=== PATIENT | female | born 1955 | race Caucasian/White ===

== ENCOUNTER → 2018-03-09 13:28 | Outpatient (CLI) | payer OTHER, SELFPAY ==
[2018-03-09 14:34] LABS: Bilirubin Urine UA NEGATIVE (NEGATIVE); Color Urine UA YELLOW; Glucose Urine UA NEGATIVE (Normal); Ketones Urine UA NEGATIVE (NEGATIVE); Leukocyte Esterase Urine UA 2+ (NEGATIVE); Nitrite Urine UA Negative (Negative); Occult Blood Urine UA NEGATIVE (Negative); Protein Urine UA NEGATIVE (Negative); Specific Gravity Urine UA 1.015 (1.000-1.035); Urobilinogen Urine UA 0.2 E.U./dL (0.2)
[2018-03-09 15:28] LABS: Appearance Urine UA Slightly Cloudy; RBC Urine None Seen (0-5/HPF); Squamous Epithelial Cell Urine 0-1 /HPF; WBC Urine 5-10/HPF (0-5/HPF)
[2018-03-09 15:29] LABS: Amorphous Sediment Urine 3+; Bacteria Urine Moderate (10-30); Culture Indicated Urine Specimen Cultured; Mucus Urine 1+ (Negative)
== END ==
PROVIDERS: PCP Family Medicine; Visit Provider Family Medicine
DX: R30.0 Dysuria (principal); R41.0 Disorientation, unspecified
CPT/HCPCS: 81003; 81015; 87077; 87086; 87186

== ENCOUNTER 2018-06-01 13:30 | Outpatient (RCR) | payer OTHER, SELFPAY ==
--- NOTE | 2018-01-06 13:25 | OT.OP.EVAL ---
Visit Care Team Role Provider Type Dariana Stratton DO Family Provider Physician Primary Care Provider Specialty: Family Practice Address: [address] [place] [address], [phone] Email: [email or web address] Nancy Floyd Attending Provider Non-Staff Specialty: Medical Address: [address] [place] [address], [id number] Email: Occupational Therapy Initial Evaluation OT Outpatient Adult Evaluation Start: 01/06/18 12:39 Freq: Status: Active Protocol: Document 01/05/18 14:45 AMS (Rec: 01/06/18 13:24 AMS [id number]) General Information Visit Start Time 13:40 Visit Stop Time 14:25 Total Visit Minutes 45 Visit Number 07/22; 07/27 Plan of Care Dates 01/05/18-03/30/18 Insurance Information g-codes required; 15 visits authorized Treatment Setting Outpatient Care Note Type Initial Evaluation Referring Physician Nancy Floyd PA-C Reason for Referral Secondary progressive MS - decreased fine motor control Identification Confirmed Yes Identification Confirmed By Sister Parent/Guardian Concerns Decrease burden of care; increase functional independence Medical History Patient is a 62 year-old female referred to outpatient OT secondary to progressive MS and subsequent decreasing fine motor control. Medical History form was completed by patient's sister, CLAUDIA, and placed in paper chart. Significant for the following: On medications to treat UTI. Knee surgery 1994. 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 Therapy Pain Assessment When Pain Assessed Function Pain Present Denied Pain ADLs Basic ADLs Severely Impaired Diet Level for Self-Feeding Will need to consult w/ SURGICAL GARMENT ASSEMBLY SUPERVISOR Self-Feeding Ability Pt and family report that she is able to feed herself w/ increased time. (+) use of standard utensils in the [facility]. (+) use of water bottle w/ lid w/ straw. Dependent w/ cutting/slicing foods. h/o dropping utensils when dining w/ family at restaurants. (-) use of AE and/or compensatory strategies. Skill Level Impaired Devices N/A Upper Body Dressing Ability Caretaskers assist. Patient denies actively assisting at this time. Unable to manage buttons or zippers. Skill Level Impaired Lower Body Dressing Ability Caretaskers assist. Patient denies actively assisting at this time. Skill Level Impaired Footware Type Athletic shoes w/ tie laces Footware Ability Dependent. Assist from caretakers. Skill Level Impaired Devices N/A Oral Care Ability Patient and family that she is able to brush her teeth w/ mod I. (+) use of electric toothbrush. Sister questions quality of regular toothbrushing; however, 'she had no cavities at her last dentist appointment'. Bathing Ability Dependent w/ UB and LB bathing . Caretaskers assist. Patient denies actively assisting at this time. Skill Level Impaired Devices N/A Grooming Ability Increased reliance on caretakers. Skill Level Impaired Tolieting Ability Increased reliance on caretakers. Skill Level Impaired IADLs Basic IADLs Severely Impaired Meaningful Abilities Per patient's sister, patient spends most of her day watching television. Patient does have a word search puzzle book and occasionally completes a puzzle in the book . Not actively reading and/or using laptop at this time. Laptop broken per family due to 'being dropped too many times'. Skill Level Impaired Cognition Cognitive Assessment Decreased processing speed of information. Vision Comments Impaired; double vision on medical reports indicated Muscle Testing Left Dry Dip Worker Dynamometer II 34.3 Right Dry Dip Worker Dynamometer II 37.0 Neurological Assessment - Adult Comments Impaired upper extremity coordination. Able to touch thumb to each finger pad bilaterally w/ visual feedback . Impairment noted w/ eyes closed particularly with thumb touching 4th and 5th digit pads bilaterally. Patient unaware of errors. Impaired symmetrical movement of arms opening and touching shoulders ; decreased fluidity and decreased joint limb sense apparent. L more difficult to position in space vs R. Decreased orientation to midline. Increased success w/ crossing of arms when TT used so that visual information was available for motor planning. Fine Motor Hand Preference Right Hand Use Consistency Within Tasks Right Function Impaired Goals Treatment Patient and caregiver education re: proximal stabilization to support motor planning of distal UEs w/ patient's completion of functional tasks. Patient's sister to convey this recommendation to [facility] staff/ caretakers to support carry- over. Short Term Goals 1. Based on family and patient verbal report, patient will be actively utilizing compensatory strategies to promote functional independence with self feeding on daily basis with minimal verbal cues from caretakers. 2. Patient will be able to execute alternating crosses x 10, while seated in wheelchair , with no more than 1 error, requiring direct model and minimal verbal cues from therapist. Mcc Goals 1. Patient will be able to execute home exercise program with support from family members and caretakers utilizing provided written and visual instructions on a regular basis. 2. Based on family and patient verbal report, patient will be actively engaging in 1 self -identified meaningful activity on a daily basis, other than watching television , for approximately 5 minutes, requiring minimal verbal and visual cues from caretakers. Assessment/Plan Patient Response Fair Rehabilitation Potential Fair Impairments Identified ADLs Attention Balance Cognition Coordination/Dexterity Functional Activities Motor Function Recreational Activities Meaningful Activities Motor Planning Eye-Hand Coordination Treatment Assessment Patient is a 62 year-old female referred to outpatient OT secondary to progressive MS and subsequent decreasing fine motor control. Patient is currently on medications to treat UTI. PMH: knee surgery in 1994. Patient resides full-time in [facility] located in [place], [place]. Patient relies primarily on caretakers and family for all basic and instrumental ADLS. Patient presents w/ limited participation in meaningful activities, other than watching television and completing word searches occasionally. Patient does not currently utilize AE to assist with functional activities that require bimanual or fine motor coordination of the hands/arms . Patient also does not currently use compensatory strategies to support distal UE motor function. Evaluation findings include decreased fine motor coordination, decreased orientation to midline, decreased functional independence, decreased speed of processing information, impaired vision, and decreased initiation w/ motor planning. Outpatient occupational therapy is recommended to reduce burden of care and to improve upon patient's functional independence, including active initiation of engagement in motor plans ( meaningful tasks). Home Exercise Program Patient and caregiver education re: proximal stabilization to support motor planning of distal UEs w/ patient's completion of functional tasks. Patient's sister to convey this recommendation to [facility] staff/ caretakers to support carry- over. Proximal stabilization w / completion of functional tasks, including but not limited to self-feeding tasks at tabletop. Reviewed with Patient Goals Home Exercise Program Patient Understanding Fair Comment 12 weeks Treatment Frequency Once a Week Therapeutic Contents Adaptive Equipment Education Client Education Cognitive Skills Development Functional Activities Home Exercise Program Education Neurodevelopment Treatment Neuromuscular Re-Education Self-Care Therapeutic Activities Therapeutic Exercises Patient Instruction Home Exercise Program Plan of Care Questions/Concerns Other Comment Consult w/ SURGICAL GARMENT ASSEMBLY SUPERVISOR & PT
--- NOTE | 2018-01-20 08:09 | OT.OP.TRT ---
Visit Care Team Role Provider Type Dariana Stratton DO Family Provider Physician Primary Care Provider Specialty: Family Practice Address: [address] [place] [address], [id number] Email: [email or web address] Nancy Floyd Attending Provider Non-Staff Specialty: Medical Address: [address] [place] [address], [id number] Email: Occupational Therapy Treatment Note OT Outpatient Treatment Note - Adult Start: 01/06/18 12:39 Freq: Status: Active Protocol: Document 01/19/18 15:30 AMS (Rec: 01/20/18 08:09 AMS [id number]) OT Outpatient Adult Treatment Note Session Time Visit Start Time 13:45 Visit Stop Time 14:30 Total Visit Minutes 45 Visit Information Visit Number 08/22; 08/27 Plan of Care Dates 01/05/18-03/30/18 Insurance Information g-codes required; 15 visits authorized Setting Treatment Setting Outpatient Care Visit Type Note Type Treatment Note General Information General Information Patient is a 62 year-old female referred to outpatient OT secondary to progressive MS and subsequent decreasing fine motor control. Medical History form was completed by patient's sister, CLAUDIA, and placed in paper chart. Significant for the following: On medications to treat UTI. Knee surgery 1994. - Subjective Identification Type Name Identification Reconciled With Medical Record Others Present Family Observations Sabiha was accompanied to OT treatment session by her sister. She had to use the bathroom right before we left. I forgot to ask the caretakers if she has been supporting her elbows per family. It depends per Sabiha in re: participation in weekly TT fine motor coloring tasks in the [facility]. Sometimes I do and sometimes I don't. Chief Complaint(s) Restricts Parent/Guardian/Demand Generator Manager Expectation/ Decrease burden of care; Goals increase functional independence Patient/Caregiver Compliance with Home Fair Exercise Program Comments needs assist from caretakers - Objective Objective Measurements Pt was accompanied by her sister to OT treatment session . Verbal cueing required to utilize compensatory strategies, including proximal UE stabilization w/ object manipulation. (+) ability to write all lower case letters w / min v.c. for ability to recall order of alphabet. (+) upright vertical positioning of standard pencil noted w/ approximately 50% of task left to complete. Decreased self- directed participation in meaningful activities outside of watching television; decreased self-initiation. Will need to determine appropriate activities w/ pt input to increase likelihood of carry-over into daily life. Short Term Goals 1. Based on family and patient verbal report, patient will be actively utilizing compensatory strategies to promote functional independence with self feeding on daily basis with minimal verbal cues from caretakers. 2. Patient will be able to execute alternating crosses x 10, while seated in wheelchair , with no more than 1 error, requiring direct model and minimal verbal cues from therapist. Bar Welder Goals 1. Patient will be able to execute home exercise program with support from family members and caretakers utilizing provided written and visual instructions on a regular basis. 2. Based on family and patient verbal report, patient will be actively engaging in 1 self -identified meaningful activity on a daily basis, other than watching television , for approximately 5 minutes, requiring minimal verbal and visual cues from caretakers. - Treatment 3 Descriptor Orientation to midline Modifications Required Yes Complexity No Change 2 Descriptor Bimanual tasks Stabilization for object manipulation Modifications Required Yes Complexity Upgraded 1 Descriptor Functional activities Cylindrical object manipulation Spherical object manipulation Meera slide w/ use of edge of table Tool use (handwriting) Able to manage medium-sized buttons on strip w/ unbuttoning x 5 w/ increased time and intermittent min phys assist Modifications Required Yes Complexity Upgraded - Assessment Patient Response to Treatment Fair Rehab Potential Fair Impairments Identified ADLs Cognition Coordination/Dexterity Functional Activities Memory Motor Function Weakness Posture Recreational Activities Meaningful Activities Insight Vision Motor Planning Eye-Hand Coordination Assessment of Improvement Verbal cueing required to utilize compensatory strategies, including proximal UE stabilization w/ object manipulation. (+) ability to write all lower case letters w / min v.c. for ability to recall order of alphabet; decreased participation in available coloring opportunities provided in current home (approximately 2 times per week). Decreased self-directed participation in meaningful activities outside of watching television in [facility] . Will need to determine appropriate activities w/ patient input to increase likelihood of carry-over into daily life. Home Exercise Program Education of caregivers in [facility] to support functional independence/proximal stabilization. Identification of meaningful activities to support carry-over into environments outside of treatment room. Reviewed with Patient/Caregiver Goals Progress Being Made Home Exercise Program Patient/Caregiver Understanding Fair - Plan Therapy Recommendations Continue with Current Program Advance per Rehabilitation Protocol Additional Therapy Recommendations Consult w/ COLD ROLLING MACHINE SETTER & PT
--- NOTE | 2018-01-27 10:52 | OT.OP.TRT ---
Visit Care Team Role Provider Type Dariana Stratton DO Family Provider Physician Primary Care Provider Specialty: Family Practice Address: [address] [place] [address], [phone] Email: [email or web address] Nancy Floyd Attending Provider Non-Staff Specialty: Medical Address: [address] [place] [address], [phone] Email: Occupational Therapy Treatment Note OT Outpatient Treatment Note - Adult Start: 01/06/18 12:39 Freq: Status: Active Protocol: Document 01/26/18 03:30 AMS (Rec: 01/27/18 10:52 AMS [id number]) OT Outpatient Adult Treatment Note Session Time Visit Start Time 13:35 Visit Stop Time 14:20 Total Visit Minutes 45 Visit Information Visit Number 09/19; 09/24 Plan of Care Dates 01/05/18-03/30/18 Insurance Information g-codes required; 15 visits authorized Setting Treatment Setting Outpatient Care Visit Type Note Type Treatment Note General Information General Information Patient is a 62 year-old female referred to outpatient OT secondary to progressive MS and subsequent decreasing fine motor control. Medical History form was completed by patient's sister, CLAUDIA, and placed in paper chart. Significant for the following: On medications to treat UTI. Knee surgery 1994. - Subjective Identification Type Name Identification Reconciled With Medical Record Others Present Family Observations Sabiha was accompanied to OT treatment session by her sister. I haven't been writing per Sabiha. Parent/Guardian/Pediatric Dietician Expectation/ Decrease burden of care; Goals increase functional independence Patient/Caregiver Compliance with Home Fair Exercise Program Comments needs assist from caretakers - Objective Objective Measurements Pt was accompanied by her sister to OT treatment session . Verbal cueing required to utilize compensatory strategies, including proximal UE stabilization w/ object manipulation. (+) inconsistent result w/ writing of first and last name; decreased ability to increase size of letters despite visual and verbal cues and increased frustration in re: output. (+) upright vertical positioning of standard pen towards end of treatment session. Decreased self-directed participation in meaningful activities. Discussed set-up to support AT use in home setting. Decreased insight into visual deficits; recommended follow- up w/ eye doctor re: visual needs prior to investing in AT . (+) report of double vision after reading approx x 13 words written in approx 30 size font. Advanced HEP to include daily signature due to identified significance of maintaining ability to sign first and last name for personal documents. Short Term Goals 1. Based on family and patient verbal report, patient will be actively utilizing compensatory strategies to promote functional independence with self feeding on daily basis with minimal verbal cues from caretakers. = 25% met 2. Patient will be able to execute alternating crosses x 10, while seated in wheelchair , with no more than 1 error, requiring direct model and minimal verbal cues from therapist. 01/26/18= 25% met Fdc Goals 1. Patient will be able to execute home exercise program with support from family members and caretakers utilizing provided written and visual instructions on a regular basis. 01/26/18= 25% met 2. Based on family and patient verbal report, patient will be actively engaging in 1 self -identified meaningful activity on a daily basis, other than watching television , for approximately 5 minutes, requiring minimal verbal and visual cues from caretakers. = 25% met - Treatment 3 Descriptor Orientation to midline Modifications Required Yes Complexity No Change 2 Descriptor Bimanual tasks Stabilization for object manipulation Modifications Required Yes Complexity No Change 1 Descriptor Functional activities Tool use (handwriting) Education re: set-up for AT Recommended follow-up re: vision Modifications Required Yes Complexity Upgraded - Assessment Patient Response to Treatment Fair Rehab Potential Fair Impairments Identified ADLs Cognition Coordination/Dexterity Functional Activities Memory Motor Function Weakness Posture Recreational Activities Meaningful Activities Insight Vision Motor Planning Eye-Hand Coordination Assessment of Improvement Verbal cueing required to utilize compensatory strategies in daily life. Decreased self-directed participation in meaningful activities outside of watching television. Decreased self- directed participation in fine motor activities on regular basis/daily basis. Decreased insight into visual deficits; recommended follow-up w/ eye doctor re: visual needs prior to investing in AT. Advanced HEP to include daily signature due to identified significance of maintaining ability to sign first and last name for personal documents. Home Exercise Program Education of caregivers in [place] to support functional independence. Practicing signature of first and last name on a daily basis. Reviewed with Patient/Caregiver Goals Progress Being Made Home Exercise Program Patient/Caregiver Understanding Fair - Plan Therapy Recommendations Continue with Current Program Advance per Rehabilitation Protocol Additional Therapy Recommendations Consult w/ BOARD MACHINE SET UP OPERATOR & PT
--- NOTE | 2018-02-09 14:30 | OT.OP.TRT ---
Visit Care Team Role Provider Type Dariana Stratton DO Family Provider Physician Primary Care Provider Specialty: Family Practice Address: [address] [place] [address], [id number] Email: [email or web address] Nancyra Alejandra Floyd Attending Provider Non-Staff Specialty: Medical Address: [address] [place] [address], [id number] Email: Occupational Therapy Treatment Note OT Outpatient Treatment Note - Adult Start: 01/06/18 12:39 Freq: Status: Active Protocol: Document 02/09/18 14:21 AMS (Rec: 02/09/18 14:30 AMS [id number]) OT Outpatient Adult Treatment Note Session Time Visit Start Time 13:33 Visit Stop Time 14:19 Total Visit Minutes 46 Visit Information Visit Number 10/20; 10/25 Plan of Care Dates 01/05/18-03/30/18 Insurance Information g-codes required; 15 visits authorized Setting Treatment Setting Outpatient Care Visit Type Note Type Treatment Note General Information General Information Patient is a 62 year-old female referred to outpatient OT secondary to progressive MS and subsequent decreasing fine motor control. Medical History form was completed by patient's sister, CLAUDIA, and placed in paper chart. Significant for the following: On medications to treat UTI. Knee surgery 1994. - Subjective Identification Type Name Identification Reconciled With Medical Record Others Present Family Observations Yes per Sabiha in re: doing word searchers and practicing writing her name. Yes per Sabiha in re: trialing dot-to- dots. We will work on that this week per sister in re: locating dot-to-dots appropriate for Sabiha. Parent/Guardian/Career Development Manager Expectation/ Decrease burden of care; Goals increase functional independence Patient/Caregiver Compliance with Home Fair Exercise Program Comments needs assist from caretakers - Objective Objective Measurements Pt was accompanied by her sister to OT treatment session . Verbal cueing required to utilize compensatory strategies, including proximal UE stabilization w/ object manipulation. (+) inconsistent result w/ writing of first and last name; errors consistently w/ writing last name. Max v.c. to slow down writing of last name; unable to match motor output to cognitive processing. Attempt at verbalization of letters w/ writing; still unable to match motor output to cognitive processing. Decreased self-directed participation in meaningful activities; however, (+) carry -over of practicing signature w/ provided lined paper. Able to connect dots 1 to 6 w/ large handwriting without support. Short Term Goals 1. Based on family and patient verbal report, patient will be actively utilizing compensatory strategies to promote functional independence with self feeding on daily basis with minimal verbal cues from caretakers. = 25% met 2. Patient will be able to execute alternating crosses x 10, while seated in wheelchair , with no more than 1 error, requiring direct model and minimal verbal cues from therapist. 02/09/18= 25% met Mcfp Goals 1. Patient will be able to execute home exercise program with support from family members and caretakers utilizing provided written and visual instructions on a regular basis. 02/09/18= 25% met 2. Based on family and patient verbal report, patient will be actively engaging in 1 self -identified meaningful activity on a daily basis, other than watching television , for approximately 5 minutes, requiring minimal verbal and visual cues from caretakers. = 25% met - Treatment 3 Descriptor Orientation to midline *Not completed 02/09/18 Modifications Required Yes Complexity No Change 2 Descriptor Bimanual tasks Stabilization for object manipulation Modifications Required Yes Complexity No Change 1 Descriptor Functional activities Handwriting Dot-to-dot Tracing Cognitive - motor output matching Modifications Required Yes Complexity Upgraded - Assessment Patient Response to Treatment Fair Rehab Potential Fair Impairments Identified ADLs Cognition Coordination/Dexterity Functional Activities Memory Motor Function Weakness Posture Recreational Activities Meaningful Activities Insight Vision Motor Planning Eye-Hand Coordination Assessment of Improvement Verbal cueing required to utilize compensatory strategies in daily life. Decreased self-directed participation in meaningful activities outside of watching television. Improved self- directed participation in fine motor activities on regular basis/daily basis w/ provided lined paper and typed instructions. Increased errors w/ signing last name; decreased problem solving. Decreased ability to match motor output to cognitive processing speed despite max v .c. and different approaches to activity. (+) response to basic dot-to-dot w/ large print. Home Exercise Program Advanced. Please see above for additional details; sister to assist patient in locating appropriate dot-to-dot book for [facility] use for patient. Patient and sister denied questions. Reviewed with Patient/Caregiver Goals Progress Being Made Home Exercise Program Patient/Caregiver Understanding Fair - Plan Therapy Recommendations Continue with Current Program Advance per Rehabilitation Protocol Additional Therapy Recommendations Consult w/ ANIMAL HANDLER & PT
--- NOTE | 2018-02-15 09:42 | OT.OP.TRT ---
Visit Care Team Role Provider Type Dariana Stratton DO Family Provider Physician Primary Care Provider Specialty: Family Practice Address: [address] [place] [address], [phone] Email: [email or web address] Nancyra Alejandra Floyd Attending Provider Non-Staff Specialty: Medical Address: [address] [place] [address], [phone] Email: Occupational Therapy Treatment Note OT Outpatient Treatment Note - Adult Start: 01/06/18 12:39 Freq: Status: Active Protocol: Document 02/09/18 14:21 AMS (Rec: 02/09/18 14:30 AMS [id number]) OT Outpatient Adult Treatment Note Session Time Visit Start Time 13:33 Visit Stop Time 14:19 Total Visit Minutes 46 Visit Information Visit Number 10/20; 10/25 Plan of Care Dates 01/05/18-03/30/18 Insurance Information g-codes required; 15 visits authorized Setting Treatment Setting Outpatient Care Visit Type Note Type Treatment Note General Information General Information Patient is a 62 year-old female referred to outpatient OT secondary to progressive MS and subsequent decreasing fine motor control. Medical History form was completed by patient's sister, CLAUDIA, and placed in paper chart. Significant for the following: On medications to treat UTI. Knee surgery 1994. - Subjective Identification Type Name Identification Reconciled With Medical Record Others Present Family Observations Yes per Sabiha in re: doing word searchers and practicing writing her name. Yes per Sabiha in re: trialing dot-to- dots. We will work on that this week per sister in re: locating dot-to-dots appropriate for Sabiha. Parent/Guardian/School Lunch Monitor Expectation/ Decrease burden of care; Goals increase functional independence Patient/Caregiver Compliance with Home Fair Exercise Program Comments needs assist from caretakers - Objective Objective Measurements Pt was accompanied by her sister to OT treatment session . Verbal cueing required to utilize compensatory strategies, including proximal UE stabilization w/ object manipulation. (+) inconsistent result w/ writing of first and last name; errors consistently w/ writing last name. Max v.c. to slow down writing of last name; unable to match motor output to cognitive processing. Attempt at verbalization of letters w/ writing; still unable to match motor output to cognitive processing. Decreased self-directed participation in meaningful activities; however, (+) carry -over of practicing signature w/ provided lined paper. Able to connect dots 1 to 6 w/ large handwriting without support. Short Term Goals 1. Based on family and patient verbal report, patient will be actively utilizing compensatory strategies to promote functional independence with self feeding on daily basis with minimal verbal cues from caretakers. = 25% met 2. Patient will be able to execute alternating crosses x 10, while seated in wheelchair , with no more than 1 error, requiring direct model and minimal verbal cues from therapist. 02/09/18= 25% met [facility] Goals 1. Patient will be able to execute home exercise program with support from family members and caretakers utilizing provided written and visual instructions on a regular basis. 02/09/18= 25% met 2. Based on family and patient verbal report, patient will be actively engaging in 1 self -identified meaningful activity on a daily basis, other than watching television , for approximately 5 minutes, requiring minimal verbal and visual cues from caretakers. = 25% met - Treatment 3 Descriptor Orientation to midline *Not completed 02/09/18 Modifications Required Yes Complexity No Change 2 Descriptor Bimanual tasks Stabilization for object manipulation Modifications Required Yes Complexity No Change 1 Descriptor Functional activities Handwriting Dot-to-dot Tracing Cognitive - motor output matching Modifications Required Yes Complexity Upgraded - Assessment Patient Response to Treatment Fair Rehab Potential Fair Impairments Identified ADLs Cognition Coordination/Dexterity Functional Activities Memory Motor Function Weakness Posture Recreational Activities Meaningful Activities Insight Vision Motor Planning Eye-Hand Coordination Assessment of Improvement Verbal cueing required to utilize compensatory strategies in daily life. Decreased self-directed participation in meaningful activities outside of watching television. Improved self- directed participation in fine motor activities on regular basis/daily basis w/ provided lined paper and typed instructions. Increased errors w/ signing last name; decreased problem solving. Decreased ability to match motor output to cognitive processing speed despite max v .c. and different approaches to activity. (+) response to basic dot-to-dot w/ large print. Home Exercise Program Advanced. Please see above for additional details; sister to assist patient in locating appropriate dot-to-dot book for [facility] use for patient. Patient and sister denied questions. Reviewed with Patient/Caregiver Goals Progress Being Made Home Exercise Program Patient/Caregiver Understanding Fair - Plan Therapy Recommendations Continue with Current Program Advance per Rehabilitation Protocol Additional Therapy Recommendations Consult w/ CINDER CREW WORKER & PT
--- NOTE | 2018-02-18 15:02 | OT.OP.TRT ---
Visit Care Team Role Provider Type Dariana Stratton DO Family Provider Physician Primary Care Provider Specialty: Family Practice Address: [address] [place] [address], [id number] Email: [email or web address] Nancy Floyd Attending Provider Non-Staff Specialty: Medical Address: [address] [place] [address], [id number] Email: Occupational Therapy Treatment Note OT Outpatient Treatment Note - Adult Start: 01/06/18 12:39 Freq: Status: Active Protocol: Document 02/16/18 15:30 AMS (Rec: 02/18/18 15:02 AMS [id number]) OT Outpatient Adult Treatment Note Session Time Visit Start Time 13:40 Visit Stop Time 14:30 Total Visit Minutes 50 Visit Information Visit Number 11/19; 11/24 Plan of Care Dates 01/05/18-03/30/18 Insurance Information g-codes required; 15 visits authorized Setting Treatment Setting Outpatient Care Visit Type Note Type Treatment Note General Information General Information Patient is a 62 year-old female referred to outpatient OT secondary to progressive MS and subsequent decreasing fine motor control. Medical History form was completed by patient's sister, CLAUDIA, and placed in paper chart. Significant for the following: On medications to treat UTI. Knee surgery 1994. - Subjective Identification Type Name Identification Reconciled With Medical Record Others Present Family Observations I am still looking into the angelia. I am waiting for my daughter to get back from vacation since she works for [employer] per sister. I have been practicing. I think there is another page per Sabiha in re: practicing of signature. 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 Verbal cueing required to utilize compensatory strategies, including proximal UE stabilization w/ object manipulation. (+) inconsistent result w/ writing of first and last name; errors consistently w/ writing last name. Max v.c. to slow down writing of last name; unable to match motor output to cognitive processing. Attempt at use of metronome; still unable to match motor output to cognitive processing. Attempt at use of built-up pen ; increased legibility. However, discussed limitations w/ sister. Sabiha will need support to consistently use built-up pen. (-) use of large dot-to-dot in the home at this time. Able to complete x 2 w/ S. Increased since of font recommended, as well as increased space between dots d /t decreased coordination. Decreased self-directed participation in meaningful activities; however, (+) carry -over of practicing signature w/ provided lined paper. Recommended large print word searches w/ increased space between letters/words to increase success. Short Term Goals 1. Based on family and patient verbal report, patient will be actively utilizing compensatory strategies to promote functional independence with self feeding on daily basis with minimal verbal cues from caretakers. = 25% met 2. Patient will be able to execute alternating crosses x 10, while seated in wheelchair , with no more than 1 error, requiring direct model and minimal verbal cues from therapist. 02/09/18= 25% met Enterprise Services Manager Goals 1. Patient will be able to execute home exercise program with support from family members and caretakers utilizing provided written and visual instructions on a regular basis. 02/09/18= 25% met 2. Based on family and patient verbal report, patient will be actively engaging in 1 self -identified meaningful activity on a daily basis, other than watching television , for approximately 5 minutes, requiring minimal verbal and visual cues from caretakers. = 25% met - Treatment 3 Descriptor Orientation to midline *Not completed 02/09/18 Modifications Required Yes Complexity No Change 2 Descriptor Bimanual tasks Stabilization for object manipulation Modifications Required Yes Complexity No Change 1 Descriptor Functional activities Handwriting Dot-to-dot Cognitive Word search Modifications Required Yes Complexity Upgraded - Assessment Patient Response to Treatment Fair Rehab Potential Fair Impairments Identified ADLs Cognition Coordination/Dexterity Functional Activities Memory Motor Function Weakness Posture Recreational Activities Meaningful Activities Insight Vision Motor Planning Eye-Hand Coordination Assessment of Improvement Verbal cueing required to utilize compensatory strategies in daily life. Decreased self-directed participation in meaningful activities outside of watching television. Improved self- directed participation in fine motor activities on regular basis/daily basis w/ provided lined paper and typed instructions. Increased errors w/ signing last name; decreased problem solving. Decreased ability to match motor output to cognitive processing speed despite max v .c. and different approaches to activity. (+) response to basic dot-to-dot w/ large print. Impaired vision. Decreased motor coordination. Recommend providing additional resources for home completion . Needs assist to carry-over ( e.g., if built-up writing utensil to be carried over into home environment). Home Exercise Program Advanced. Please see above for additional details; sister to assist patient in locating appropriate dot-to-dot book for AF use for patient. Patient and sister denied questions. Reviewed with Patient/Caregiver Goals Progress Being Made Home Exercise Program Patient/Caregiver Understanding Fair - Plan Therapy Recommendations Continue with Current Program Advance per Rehabilitation Protocol Additional Therapy Recommendations Consult w/ COMPLIANCE ADVISOR & PT
--- NOTE | 2018-04-21 15:28 | OT.OP.REEVAL ---
Visit Care Team Role Provider Type Dariana Stratton DO Family Provider Physician Primary Care Provider Address: [address] [place] [address], [id number] Email: [email or web address] Nancy Floyd Attending Provider Non-Staff Address: [address] [place], [address] Email: OT Outpatient OT Outpatient Adult Evaluation Start: 01/06/18 12:39 Freq: Status: Active Protocol: Document 01/05/18 14:45 AMS (Rec: 01/06/18 13:24 AMS [id number]) General Information Session Time Visit Start Time 13:40 Visit Stop Time 14:25 Total Visit Minutes 45 Visit Information Visit Number 07/22; 07/27 Plan of Care Dates 01/05/18-03/30/18 Insurance Information g-codes required; 15 visits authorized Setting Treatment Setting Outpatient Care Visit Type Note Type Initial Evaluation Referral Referring Physician Nancy Floyd PA-C Reason for Referral Secondary progressive MS - decreased fine motor control Identification Identification Confirmed Yes Identification Confirmed By Sister Parent/Guardian Parent/Guardian Concerns Decrease burden of care; increase functional independence Medical Information Medical History Patient is a 62 year-old female referred to outpatient OT secondary to progressive MS and subsequent decreasing fine motor control. Medical History form was completed by patient's sister, CLAUDIA, and placed in paper chart. Significant for the following: On medications to treat UTI. Knee surgery 1994. Previous Therapy Current Therapy/Therapies PT & FLAME HARDENER Social Information Social History Patient resides full-time in [facility] located in [place], [place]. Therapy Pain Assessment Pain When Pain Assessed Function Pain Present Pain Present Denied Pain ADLs Overall Ability Basic ADLs Severely Impaired Feeding Diet Level for Self-Feeding Will need to consult w/ FLAME HARDENER Self-Feeding Ability Pt and family report that she is able to feed herself w/ increased time. (+) use of standard utensils in the AF. (+) use of water bottle w/ lid w/ straw. Dependent w/ cutting/slicing foods. h/o dropping utensils when dining w/ family at restaurants. (-) use of AE and/or compensatory strategies. Skill Level Impaired Devices N/A Dressing Upper Body Dressing Ability Caretaskers assist. Patient denies actively assisting at this time. Unable to manage buttons or zippers. Skill Level Impaired Lower Body Dressing Ability Caretaskers assist. Patient denies actively assisting at this time. Skill Level Impaired Footware Type Athletic shoes w/ tie laces Footware Ability Dependent. Assist from caretakers. Skill Level Impaired Devices N/A Oral Care Oral Care Ability Patient and family that she is able to brush her teeth w/ mod I. (+) use of electric toothbrush. Sister questions quality of regular toothbrushing; however, 'she had no cavities at her last dentist appointment'. Bathing Bathing Ability Dependent w/ UB and LB bathing . Caretaskers assist. Patient denies actively assisting at this time. Skill Level Impaired Devices N/A Grooming Grooming Ability Increased reliance on caretakers. Skill Level Impaired Toileting Tolieting Ability Increased reliance on caretakers. Skill Level Impaired IADLs Overall Function Basic IADLs Severely Impaired Meaningful Activities Meaningful Abilities Per patient's sister, patient spends most of her day watching television. Patient does have a word search puzzle book and occasionally completes a puzzle in the book . Not actively reading and/or using laptop at this time. Laptop broken per family due to 'being dropped too many times'. Skill Level Impaired Cognition Cognitive Assessment Cognitive Assessment Decreased processing speed of information. Vision Vision Comments Impaired; double vision on medical reports indicated Muscle Testing Job Superintendent/Hand Strength Left Job Superintendent Dynamometer II 34.3 Right Job Superintendent Dynamometer II 37.0 Neurological Assessment - Adult Coordination Comments Impaired upper extremity coordination. Able to touch thumb to each finger pad bilaterally w/ visual feedback . Impairment noted w/ eyes closed particularly with thumb touching 4th and 5th digit pads bilaterally. Patient unaware of errors. Impaired symmetrical movement of arms opening and touching shoulders ; decreased fluidity and decreased joint limb sense apparent. L more difficult to position in space vs R. Decreased orientation to midline. Increased success w/ crossing of arms when TT used so that visual information was available for motor planning. Fine Motor Handedness Hand Preference Right Hand Use Consistency Within Tasks Right Motor Planning Function Impaired Goals Treatment Treatment Patient and caregiver education re: proximal stabilization to support motor planning of distal UEs w/ patient's completion of functional tasks. Patient's sister to convey this recommendation to [facility] staff/ caretakers to support carry- over. Short Term Goals Short Term Goals 1. Based on family and patient verbal report, patient will be actively utilizing compensatory strategies to promote functional independence with self feeding on daily basis with minimal verbal cues from caretakers. 2. Patient will be able to execute alternating crosses x 10, while seated in wheelchair , with no more than 1 error, requiring direct model and minimal verbal cues from therapist. Jail Goals Wafer Fabrication Operator Goals 1. Patient will be able to execute home exercise program with support from family members and caretakers utilizing provided written and visual instructions on a regular basis. 2. Based on family and patient verbal report, patient will be actively engaging in 1 self -identified meaningful activity on a daily basis, other than watching television , for approximately 5 minutes, requiring minimal verbal and visual cues from caretakers. Assessment/Plan Assessment Patient Response Fair Rehabilitation Potential Fair Impairments Identified ADLs Attention Balance Cognition Coordination/Dexterity Functional Activities Motor Function Recreational Activities Meaningful Activities Motor Planning Eye-Hand Coordination Treatment Assessment Patient is a 62 year-old female referred to outpatient OT secondary to progressive MS and subsequent decreasing fine motor control. Patient is currently on medications to treat UTI. PMH: knee surgery in 1994. Patient resides full-time in [facility] located in [place], [place]. Patient relies primarily on caretakers and family for all basic and instrumental ADLS. Patient presents w/ limited participation in meaningful activities, other than watching television and completing word searches occasionally. Patient does not currently utilize AE to assist with functional activities that require bimanual or fine motor coordination of the hands/arms . Patient also does not currently use compensatory strategies to support distal UE motor function. Evaluation findings include decreased fine motor coordination, decreased orientation to midline, decreased functional independence, decreased speed of processing information, impaired vision, and decreased initiation w/ motor planning. Outpatient occupational therapy is recommended to reduce burden of care and to improve upon patient's functional independence, including active initiation of engagement in motor plans ( meaningful tasks). Home Exercise Program Patient and caregiver education re: proximal stabilization to support motor planning of distal UEs w/ patient's completion of functional tasks. Patient's sister to convey this recommendation to [facility] staff/ caretakers to support carry- over. Proximal stabilization w / completion of functional tasks, including but not limited to self-feeding tasks at tabletop. Reviewed with Patient Goals Home Exercise Program Patient Understanding Fair Plan Comment 12 weeks Treatment Frequency Once a Week Therapeutic Contents Adaptive Equipment Education Client Education Cognitive Skills Development Functional Activities Home Exercise Program Education Neurodevelopment Treatment Neuromuscular Re-Education Self-Care Therapeutic Activities Therapeutic Exercises Patient Instruction Home Exercise Program Plan of Care Questions/Concerns Other Comment Consult w/ FLAME HARDENER & PT Sensory Assessment Sensory Profile2 Functional Wrist/Hand Scan Hand Side OT Outpatient Treatment Note - Adult Start: 01/06/18 12:39 Freq: Status: Active Protocol: Document 04/20/18 13:30 AMS (Rec: 04/21/18 15:28 AMS [email or web address]) OT Outpatient Adult Treatment Note Session Time Visit Start Time 13:30 Visit Stop Time 14:18 Total Visit Minutes 48 Visit Information Visit Number 07/22; 12/25 Plan of Care Dates 03/30/18-06/22/18 Insurance Information g-codes required; 15 visits authorized Setting Treatment Setting Outpatient Care Visit Type Note Type Re-Evaluation General Information General Information Patient is a 62 year-old female referred to outpatient OT secondary to progressive MS and subsequent decreasing fine motor control. Medical History form was completed by patient's sister, CLAUDIA, and placed in paper chart. Significant for the following: On medications to treat UTI. Knee surgery 1994. - Subjective Identification Type Name Identification Reconciled With Medical Record Others Present Family Observations I have been signing my name every day per Sabiha. Parent/Guardian/Direct Care Provider Expectation/ Decrease burden of care; Goals increase functional independence Patient/Caregiver Compliance with Home Fair Exercise Program Comments needs assist from caretakers - Objective Objective Measurements Pt was accompanied by brother- in-law to OT treatment session . Verbal cueing required to utilize compensatory strategies, including proximal UE stabilization w/ object manipulation. (+) signing of first name, middle initial, last name; (+) legibility. (+) ability to locate 10/10 words within word search w/ min v.c . only. Decreased self- directed participation in meaningful activities; however , (+) carry-over of practicing signature w/ provided lined paper. Short Term Goals 1. Based on family and patient verbal report, patient will be actively utilizing compensatory strategies to promote functional independence with self feeding on daily basis with minimal verbal cues from caretakers. 04/20/18= 25% met 2. Patient will be able to execute alternating crosses x 10, while seated in wheelchair , with no more than 1 error, requiring direct model and minimal verbal cues from therapist. 04/20/18= 25% met Jail Goals 1. Patient will be able to execute home exercise program with support from family members and caretakers utilizing provided written and visual instructions on a regular basis. 04/20/18= 25% met 2. Based on family and patient verbal report, patient will be actively engaging in 1 self -identified meaningful activity on a daily basis, other than watching television , for approximately 5 minutes, requiring minimal verbal and visual cues from caretakers. 04/20/18= 25% met - Treatment 2 Descriptor Bimanual tasks Stabilization for object manipulation Modifications Required Yes Complexity No Change 1 Descriptor Functional activities Handwriting Word search Cards Modifications Required Yes Complexity Upgraded - Assessment Patient Response to Treatment Fair Rehab Potential Fair Impairments Identified ADLs Cognition Coordination/Dexterity Functional Activities Memory Motor Function Weakness Posture Recreational Activities Meaningful Activities Insight Vision Motor Planning Eye-Hand Coordination Assessment of Improvement Sabiha has demonstrated (+) carry-over relative to practicing signature in the home; Sabiha however, needs support to utilize compensatory strategies and to engage in meaningful activities other than watching television. Appropriate word searches relative to font sizing and spacing provided; [id number] reported that they will find a book for her to use. Sabiha denied completing dot-to-dot activities as previously recommended. Sabiha reported h/ o playing solitaire w/ actual cards; (+) participation and success w/ basic 'war' card game; will need to review independence w/ solitaire to determine if this is an option for in-home w/ environmental support only (or if additional support is required). Sabiha continues to present w/ decreased functional independence; continued outpt OT is recommended to establish appropriate HEP and to address modifications to improve functional abilities. Home Exercise Program Advanced. Provided pt w/ word searches w/ appropriate size font and spacing to support success for in-home completion . Recommended continued daily practicing of signature in the home. [id number] and pt denied questions. Reviewed with Patient/Caregiver Goals Progress Being Made Home Exercise Program Patient/Caregiver Understanding Fair - Plan Therapy Recommendations Continue with Current Program Advance per Rehabilitation Protocol Additional Therapy Recommendations Consult w/ FLAME HARDENER & PT Comment 12 weeks Frequency of Treatment Once a Week Therapeutic Contents Active Range of Motion Adaptive Equipment Education Client Education Cognitive Skills Development Functional Activities Home Exercise Program Education Neuromuscular Re-Education Self-Care Stretching/Flexibility Activities Therapeutic Activities Therapeutic Exercises
--- NOTE | 2018-04-27 14:45 | OT.OP.TRT ---
Visit Care Team Role Provider Type Dariana Stratton DO Family Provider Physician Primary Care Provider Specialty: Family Practice Address: [address] [place] [address], [id number] Email: [email or web address] Nancy Floyd Attending Provider Non-Staff Specialty: Medical Address: [address] [place] [address], [id number] Email: Occupational Therapy Treatment Note OT Outpatient Treatment Note - Adult Start: 01/06/18 12:39 Freq: Status: Active Protocol: Document 04/27/18 14:29 AMS (Rec: 04/27/18 14:45 AMS [email or web address]) OT Outpatient Adult Treatment Note Session Time Visit Start Time 13:30 Visit Stop Time 14:20 Total Visit Minutes 50 Visit Information Visit Number 08/22; 01/24 Plan of Care Dates 03/30/18-06/22/18 Insurance Information g-codes required; 15 visits authorized Setting Treatment Setting Outpatient Care Visit Type Note Type Treatment Note General Information General Information Patient is a 62 year-old female referred to outpatient OT secondary to progressive MS and subsequent decreasing fine motor control. Medical History form was completed by patient's sister, CLAUDIA, and placed in paper chart. Significant for the following: On medications to treat UTI. Knee surgery 1994. - Subjective Identification Type Name Identification Reconciled With Medical Record Others Present Family Observations She already finished all those word searches you gave her last week per brother-in- law. She has trouble cutting her foods. I don't think she is using her hands much. I like twisting per Sabiha. 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 Verbal cueing required to utilize compensatory strategies, including proximal UE stabilization w/ object manipulation. Decreased active use of hands throughout the day; (+) assist w/ all functional tasks. Education re : importance of maintaining available ROM of digits/hands to support functional/safe transfers. Decreased self- directed participation in meaningful activities; however , (+) carry-over of practicing signature w/ provided lined paper. Short Term Goals 1. Based on family and patient verbal report, patient will be actively utilizing compensatory strategies to promote functional independence with self feeding on daily basis with minimal verbal cues from caretakers. 04/27/18= 50% met. Able to use fork and spoon; diff w/ cutting/slicing. 2. Patient will be able to execute alternating crosses x 10, while seated in wheelchair , with no more than 1 error, requiring direct model and minimal verbal cues from therapist. 04/27/18= 25% met ( min v.c. w/ walking on towel) Half-Way Goals 1. Patient will be able to execute home exercise program with support from family members and caretakers utilizing provided written and visual instructions on a regular basis. 04/20/18= 25% met 2. Based on family and patient verbal report, patient will be actively engaging in 1 self -identified meaningful activity on a daily basis, other than watching television , for approximately 5 minutes, requiring minimal verbal and visual cues from caretakers. 04/27/18= 50% met (word search , signature). - Treatment 3 Descriptor Orientation to midline Wash cloth walk Modifications Required Yes Complexity Upgraded 2 Descriptor Bimanual tasks Find It object Wash cloth Lids of containers Stress ball Modifications Required Yes Complexity Upgraded 1 Descriptor Self care Cutting foods (Green Theraputty) Lids of containers Modifications Required Yes Complexity Upgraded - Assessment Patient Response to Treatment Fair Rehab Potential Fair Impairments Identified ADLs Cognition Coordination/Dexterity Functional Activities Memory Motor Function Weakness Posture Recreational Activities Meaningful Activities Insight Vision Motor Planning Eye-Hand Coordination Assessment of Improvement Pt requires cueing to support use of compensatory strategies w/ completion of daily tasks. Discussed appropriate objects for pt manipulation in the home to support success and decreased oversight. Discussed importance of daily use of hands. Verbal cueing to problem solve and support cutting success w/ plate; (-) turning and inconsistent w/ grasp of stabilizing utensil. Recommend built-up handle due to decreased ability to maintain tight grasp. Home Exercise Program Advanced. Recommended daily use of hands; discussed several options including hacky sack w/ basketball, stress ball, wash cloth twists , Find It containers, opening and closing containers. Pt and [id number] and pt denied questions. Reviewed with Patient/Caregiver Goals Progress Being Made Home Exercise Program Patient/Caregiver Understanding Fair - Plan Therapy Recommendations Continue with Current Program Advance per Rehabilitation Protocol Additional Therapy Recommendations Consult w/ OTR TANKER TRUCK DRIVER & PT
--- NOTE | 2018-05-04 15:08 | OT.OP.TRT ---
Visit Care Team Role Provider Type Dariana Stratton DO Family Provider Physician Primary Care Provider Specialty: Family Practice Address: [address] [place] [address], [id number] Email: [email or web address] Nancyra Alejandra Floyd Attending Provider Non-Staff Specialty: Medical Address: [address] [place] [address], [id number] Email: Occupational Therapy Treatment Note OT Outpatient Treatment Note - Adult Start: 01/06/18 12:39 Freq: Status: Active Protocol: Document 05/04/18 14:59 AMS (Rec: 05/04/18 15:08 AMS [email or web address]) OT Outpatient Adult Treatment Note Session Time Visit Start Time 13:30 Visit Stop Time 14:20 Total Visit Minutes 50 Visit Information Visit Number 09/19; 02/24 Plan of Care Dates 03/30/18-06/22/18 Insurance Information g-codes required; 15 visits authorized Setting Treatment Setting Outpatient Care Visit Type Note Type Treatment Note General Information General Information Patient is a 62 year-old female referred to outpatient OT secondary to progressive MS and subsequent decreasing fine motor control. Medical History form was completed by patient's sister, CLAUDIA, and placed in paper chart. Significant for the following: On medications to treat UTI. Knee surgery 1994. - Subjective Identification Type Name Identification Reconciled With Medical Record Others Present Family Observations I just use a regular knife per Sabiha. 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 Verbal cueing required to utilize compensatory strategies, including proximal UE stabilization w/ object manipulation. Decreased active use of hands throughout the day; (+) assist w/ all functional tasks. Decreased self-directed participation in meaningful activities. Improved success w/ cutting/ slicing following isolated pressure w/ fork placed in L hand. Min v.c. and min visual cues w/ card game of Wunsch-Brautkleidire . Denied current use of cards on daily basis. Qdhqhja-dn-rmv verbalized concern re: Sabiha' s ability to use spoon w/ soup ; thus, recommend reviewing proximal stabilization strategies w/ self-feeding in this situation. Short Term Goals 1. Based on family and patient verbal report, patient will be actively utilizing compensatory strategies to promote functional independence with self feeding on daily basis with minimal verbal cues from caretakers. 05/04/18= 50% met. Able to use fork and spoon; diff w/ cutting/slicing. 2. Patient will be able to execute alternating crosses x 10, while seated in wheelchair , with no more than 1 error, requiring direct model and minimal verbal cues from therapist. 04/27/18= 25% met ( min v.c. w/ walking on towel) Correction Goals 1. Patient will be able to execute home exercise program with support from family members and caretakers utilizing provided written and visual instructions on a regular basis. 04/20/18= 25% met 2. Based on family and patient verbal report, patient will be actively engaging in 1 self -identified meaningful activity on a daily basis, other than watching television , for approximately 5 minutes, requiring minimal verbal and visual cues from caretakers. 04/27/18= 50% met (word search , signature). - Treatment 3 Descriptor Orientation to midline Bimanual tasks Modifications Required Yes Complexity Upgraded 2 Descriptor Bimanual tasks Deck of cards Modifications Required Yes Complexity Upgraded 1 Descriptor Self care Self feeding; butter knife and fork Modifications Required Yes Complexity Upgraded Exercises 1 Descriptor HEP. Support of functional abilities to use self-feeding utensils. Active participation and assist of caretakers to support use of hands. Use of deck of cards. Provision of butter knife and time to complete self-feeding tasks without physical assist. - Assessment Patient Response to Treatment Fair Rehab Potential Fair Impairments Identified ADLs Cognition Coordination/Dexterity Functional Activities Memory Motor Function Weakness Posture Recreational Activities Meaningful Activities Insight Vision Motor Planning Eye-Hand Coordination Assessment of Improvement Improved success w/ cutting/ slicing foods following isolated use of fork in left hand for stabilization; recommended intermittent use of utensil in L hand to maintain functional manipulation skills and/or use of butter knife as able in home to support maintenance of these skills. (+) active engagement in game of Wunsch-Brautkleidire w/ use of deck of cards. Concern re: Sabiha's ability to use spoon w/ soup verbalized by ajdjoib-jc-xwn; reviewed proximal stabilization strategies. Recommend following up; eaozbni-im-gsp also verbalized recent coughing w/ drinking. However, not observed in OT w/ use of water bottle in session on 3 separate occasions. Recommended follow- up w/ SENIOR QUALITY CONTROL TECHNICIAN. Home Exercise Program Please refer to treatment section of note for specific details. [id number]-[id number] and pt denied questions. Reviewed with Patient/Caregiver Goals Progress Being Made Home Exercise Program Patient/Caregiver Understanding Fair - Plan Therapy Recommendations Continue with Current Program Advance per Rehabilitation Protocol Additional Therapy Recommendations Consult w/ SENIOR QUALITY CONTROL TECHNICIAN & PT
--- NOTE | 2018-05-20 14:18 | OT.OP.TRT ---
Visit Care Team Role Provider Type Dariana Stratton DO Family Provider Physician Primary Care Provider Specialty: Family Practice Address: [address] [place] [address], [id number] Email: [email or web address] Nancy Floyd Attending Provider Non-Staff Specialty: Medical Address: [address] [place] [address], [id number] Email: Occupational Therapy Treatment Note OT Outpatient Treatment Note - Adult Start: 01/06/18 12:39 Freq: Status: Active Protocol: Document 05/18/18 14:08 AMS (Rec: 05/20/18 14:18 AMS [email or web address]) OT Outpatient Adult Treatment Note Session Time Visit Start Time 13:30 Visit Stop Time 14:20 Total Visit Minutes 50 Visit Information Visit Number 10/20; 03/27 Plan of Care Dates 03/30/18-06/22/18 Insurance Information g-codes required; 15 visits authorized Setting Treatment Setting Outpatient Care Visit Type Note Type Treatment Note General Information General Information Patient is a 62 year-old female referred to outpatient OT secondary to progressive MS and subsequent decreasing fine motor control. Medical History form was completed by patient's sister, CLAUDIA, and placed in paper chart. Significant for the following: On medications to treat UTI. Knee surgery 1994. - Subjective Identification Type Name Identification Reconciled With Medical Record Others Present Family Observations I heard Sabiha is beating all the ladies at cards now per pyosgby-gl-wlc. Chief Complaint(s) Restricts Parent/Guardian/Partner Expectation/ Decrease burden of care; Goals increase functional independence Patient/Caregiver Compliance with Home Fair Exercise Program Comments needs assist from caretakers - Objective Objective Measurements Pt was accompanied by brother- in-law. Verbal cueing required to utilize compensatory strategies. Increasing active use of hands throughout the day, as evidenced by actively utilizing deck of cards; (+) assist w/ all functional tasks . Improving self-directed participation in meaningful activities. (+) ability to transfer small objects w/ standard spoon between 2 locations w/ cueing for proximal stabilization to increase success. (+) participation in connect 4 x 4 trials without assist to manipulate pieces; (+) problem solving to 'block' therapist horizontally or vertically. Decreased success diagonally. Short Term Goals 1. Based on family and patient verbal report, patient will be actively utilizing compensatory strategies to promote functional independence with self feeding on daily basis with minimal verbal cues from caretakers. 05/04/18= 50% met. Able to use fork and spoon; diff w/ cutting/slicing. 2. Patient will be able to execute alternating crosses x 10, while seated in wheelchair , with no more than 1 error, requiring direct model and minimal verbal cues from therapist. 04/27/18= 25% met ( min v.c. w/ walking on towel) Senior Care Goals 1. Patient will be able to execute home exercise program with support from family members and caretakers utilizing provided written and visual instructions on a regular basis. 04/20/18= 25% met 2. Based on family and patient verbal report, patient will be actively engaging in 1 self -identified meaningful activity on a daily basis, other than watching television , for approximately 5 minutes, requiring minimal verbal and visual cues from caretakers. 05/18/18= 75% met (word search, signature). - Treatment 3 Descriptor Orientation to midline Bimanual tasks Modifications Required Yes Complexity Upgraded 2 Descriptor Bimanual tasks Modifications Required Yes Complexity Upgraded 1 Descriptor Self care Self feeding; spoon Modifications Required Yes Complexity Upgraded Exercises 1 Descriptor HEP. Support of functional abilities w/ hobbies. Discussed 2 different options for home use; recommended rkumtiv-ph-rih and patient follow-up w/ caregivers in the home to support carry-over. Both patient and brother-in- law denied questions. Complexity Upgraded - Assessment Patient Response to Treatment Fair Rehab Potential Fair Impairments Identified ADLs Cognition Coordination/Dexterity Functional Activities Memory Motor Function Weakness Posture Recreational Activities Meaningful Activities Insight Vision Motor Planning Eye-Hand Coordination Assessment of Improvement Increasing active participation in meaningful activities in the home other than watching television based on patient and aivwxfo-cv-noo 's verbal report. Decreased self-initiation/searching of other options. Functional self -feeding w/ spoon based on feedback from patient and frjlmqz-rq-aiw on this treatment date. Home Exercise Program Please refer to treatment section of note for specific details. Reviewed with Patient/Caregiver Goals Progress Being Made Home Exercise Program Patient/Caregiver Understanding Fair - Plan Therapy Recommendations Continue with Current Program Advance per Rehabilitation Protocol Additional Therapy Recommendations Consult w/ PRIZE JACKER & PT
--- NOTE | 2018-05-25 14:44 | OT.OP.TRT ---
Visit Care Team Role Provider Type Dariana Stratton DO Family Provider Physician Primary Care Provider Specialty: Family Practice Address: [address] [place] [address], [id number] Email: [email or web address] Nancy Floyd Attending Provider Non-Staff Specialty: Medical Address: [address] [place] [address], [phone] Email: Occupational Therapy Treatment Note OT Outpatient Treatment Note - Adult Start: 01/06/18 12:39 Freq: Status: Active Protocol: Document 05/25/18 14:34 AMS (Rec: 05/25/18 14:44 AMS [id number]) OT Outpatient Adult Treatment Note Session Time Visit Start Time 13:30 Visit Stop Time 14:20 Total Visit Minutes 50 Visit Information Visit Number 11/19; 04/26 Plan of Care Dates 03/30/18-06/22/18 Insurance Information g-codes required; 15 visits authorized Setting Treatment Setting Outpatient Care Visit Type Note Type Treatment Note General Information General Information Patient is a 62 year-old female referred to outpatient OT secondary to progressive MS and subsequent decreasing fine motor control. Medical History form was completed by patient's sister, CLAUDIA, and placed in paper chart. Significant for the following: On medications to treat UTI. Knee surgery 1994. - Subjective Identification Type Name Identification Reconciled With Medical Record Others Present Family Chief Complaint(s) Restricts Parent/Guardian/Coding Analyst Expectation/ Decrease burden of care; Goals increase functional independence Patient/Caregiver Compliance with Home Fair Exercise Program Comments needs assist from caretakers - Objective Short Term Goals 1. Based on family and patient verbal report, patient will be actively utilizing compensatory strategies to promote functional independence with self feeding on daily basis with minimal verbal cues from caretakers. 05/25/18= 50% met. Able to use fork and spoon; diff w/ cutting/slicing. 2. Patient will be able to execute alternating crosses x 10, while seated in wheelchair , with no more than 1 error, requiring direct model and minimal verbal cues from therapist. 04/27/18= 25% met ( min v.c. w/ walking on towel) Fpc Goals 1. Patient will be able to execute home exercise program with support from family members and caretakers utilizing provided written and visual instructions on a regular basis. 04/20/18= 25% met 2. Based on family and patient verbal report, patient will be actively engaging in 1 self -identified meaningful activity on a daily basis, other than watching television , for approximately 5 minutes, requiring minimal verbal and visual cues from caretakers. 05/25/18= 50% met (word search , signature). - Treatment 3 Descriptor Functional activities Object manipulation Modifications Required Yes Complexity Upgraded 2 Descriptor Bimanual tasks Modifications Required Yes Complexity Upgraded 1 Descriptor Self care Self feeding; spoon Modifications Required Yes Complexity Upgraded Exercises 1 Descriptor HEP. No changes to current HEP . Continue w/ active participation in meaningful activities (playing cards - solitaire). Both patient and [id number] denied questions. Complexity No Change - Assessment Patient Response to Treatment Fair Rehab Potential Fair Impairments Identified ADLs Cognition Coordination/Dexterity Functional Activities Memory Motor Function Weakness Posture Recreational Activities Meaningful Activities Insight Vision Motor Planning Eye-Hand Coordination Assessment of Improvement Need for support for active participation in various meaningful activities at home on daily basis. Inconsistent w / participation in word searches and/or card games, et cetera. Recommend reviewing strategies to support daily participation in various activities in the home w/ patient and [id number] at time of next treatment session . Home Exercise Program Please refer to treatment section of note for specific details. Reviewed with Patient/Caregiver Goals Progress Being Made Home Exercise Program Patient/Caregiver Understanding Fair - Plan Therapy Recommendations Continue with Current Program Advance per Rehabilitation Protocol Additional Therapy Recommendations Consult w/ UTILITY BAG ASSEMBLER & PT
--- NOTE | 2018-06-02 12:09 | OT.OP.DC ---
Visit Care Team Role Provider Type Dariana Stratton DO Family Provider Physician Primary Care Provider Address: [address] [place] [address], [id number] Email: [email or web address] Nancy Floyd Attending Provider Non-Staff Address: [address] [place], [address] Email: OT Outpatient OT Outpatient Adult Evaluation Start: 01/06/18 12:39 Freq: Status: Active Protocol: Document 01/05/18 14:45 AMS (Rec: 01/06/18 13:24 AMS [id number]) General Information Session Time Visit Start Time 13:40 Visit Stop Time 14:25 Total Visit Minutes 45 Visit Information Visit Number 07/22; 07/27 Plan of Care Dates 01/05/18-03/30/18 Insurance Information g-codes required; 15 visits authorized Setting Treatment Setting Outpatient Care Visit Type Note Type Initial Evaluation Referral Referring Physician Nancy Floyd PA-C Reason for Referral Secondary progressive MS - decreased fine motor control Identification Identification Confirmed Yes Identification Confirmed By Sister Parent/Guardian Parent/Guardian Concerns Decrease burden of care; increase functional independence Medical Information Medical History Patient is a 62 year-old female referred to outpatient OT secondary to progressive MS and subsequent decreasing fine motor control. Medical History form was completed by patient's sister, CLAUDIA, and placed in paper chart. Significant for the following: On medications to treat UTI. Knee surgery 1994. Previous Therapy Current Therapy/Therapies PT & DIRECTOR CHECK Social Information Social History Patient resides full-time in [facility] located in [place], [place]. Therapy Pain Assessment Pain When Pain Assessed Function Pain Present Pain Present Denied Pain ADLs Overall Ability Basic ADLs Severely Impaired Feeding Diet Level for Self-Feeding Will need to consult w/ DIRECTOR CHECK Self-Feeding Ability Pt and family report that she is able to feed herself w/ increased time. (+) use of standard utensils in the AF. (+) use of water bottle w/ lid w/ straw. Dependent w/ cutting/slicing foods. h/o dropping utensils when dining w/ family at restaurants. (-) use of AE and/or compensatory strategies. Skill Level Impaired Devices N/A Dressing Upper Body Dressing Ability Caretaskers assist. Patient denies actively assisting at this time. Unable to manage buttons or zippers. Skill Level Impaired Lower Body Dressing Ability Caretaskers assist. Patient denies actively assisting at this time. Skill Level Impaired Footware Type Athletic shoes w/ tie laces Footware Ability Dependent. Assist from caretakers. Skill Level Impaired Devices N/A Oral Care Oral Care Ability Patient and family that she is able to brush her teeth w/ mod I. (+) use of electric toothbrush. Sister questions quality of regular toothbrushing; however, 'she had no cavities at her last dentist appointment'. Bathing Bathing Ability Dependent w/ UB and LB bathing . Caretaskers assist. Patient denies actively assisting at this time. Skill Level Impaired Devices N/A Grooming Grooming Ability Increased reliance on caretakers. Skill Level Impaired Toileting Tolieting Ability Increased reliance on caretakers. Skill Level Impaired IADLs Overall Function Basic IADLs Severely Impaired Meaningful Activities Meaningful Abilities Per patient's sister, patient spends most of her day watching television. Patient does have a word search puzzle book and occasionally completes a puzzle in the book . Not actively reading and/or using laptop at this time. Laptop broken per family due to 'being dropped too many times'. Skill Level Impaired Cognition Cognitive Assessment Cognitive Assessment Decreased processing speed of information. Vision Vision Comments Impaired; double vision on medical reports indicated Muscle Testing Ceramic Sprayer/Hand Strength Left Ceramic Sprayer Dynamometer II 34.3 Right Ceramic Sprayer Dynamometer II 37.0 Neurological Assessment - Adult Coordination Comments Impaired upper extremity coordination. Able to touch thumb to each finger pad bilaterally w/ visual feedback . Impairment noted w/ eyes closed particularly with thumb touching 4th and 5th digit pads bilaterally. Patient unaware of errors. Impaired symmetrical movement of arms opening and touching shoulders ; decreased fluidity and decreased joint limb sense apparent. L more difficult to position in space vs R. Decreased orientation to midline. Increased success w/ crossing of arms when TT used so that visual information was available for motor planning. Fine Motor Handedness Hand Preference Right Hand Use Consistency Within Tasks Right Motor Planning Function Impaired Goals Treatment Treatment Patient and caregiver education re: proximal stabilization to support motor planning of distal UEs w/ patient's completion of functional tasks. Patient's sister to convey this recommendation to [facility] staff/ caretakers to support carry- over. Short Term Goals Short Term Goals 1. Based on family and patient verbal report, patient will be actively utilizing compensatory strategies to promote functional independence with self feeding on daily basis with minimal verbal cues from caretakers. 2. Patient will be able to execute alternating crosses x 10, while seated in wheelchair , with no more than 1 error, requiring direct model and minimal verbal cues from therapist. Shelter Goals Directory Carrier Goals 1. Patient will be able to execute home exercise program with support from family members and caretakers utilizing provided written and visual instructions on a regular basis. 2. Based on family and patient verbal report, patient will be actively engaging in 1 self -identified meaningful activity on a daily basis, other than watching television , for approximately 5 minutes, requiring minimal verbal and visual cues from caretakers. Assessment/Plan Assessment Patient Response Fair Rehabilitation Potential Fair Impairments Identified ADLs Attention Balance Cognition Coordination/Dexterity Functional Activities Motor Function Recreational Activities Meaningful Activities Motor Planning Eye-Hand Coordination Treatment Assessment Patient is a 62 year-old female referred to outpatient OT secondary to progressive MS and subsequent decreasing fine motor control. Patient is currently on medications to treat UTI. PMH: knee surgery in 1994. Patient resides full-time in [facility] located in [place], [place]. Patient relies primarily on caretakers and family for all basic and instrumental ADLS. Patient presents w/ limited participation in meaningful activities, other than watching television and completing word searches occasionally. Patient does not currently utilize AE to assist with functional activities that require bimanual or fine motor coordination of the hands/arms . Patient also does not currently use compensatory strategies to support distal UE motor function. Evaluation findings include decreased fine motor coordination, decreased orientation to midline, decreased functional independence, decreased speed of processing information, impaired vision, and decreased initiation w/ motor planning. Outpatient occupational therapy is recommended to reduce burden of care and to improve upon patient's functional independence, including active initiation of engagement in motor plans ( meaningful tasks). Home Exercise Program Patient and caregiver education re: proximal stabilization to support motor planning of distal UEs w/ patient's completion of functional tasks. Patient's sister to convey this recommendation to [facility] staff/ caretakers to support carry- over. Proximal stabilization w / completion of functional tasks, including but not limited to self-feeding tasks at tabletop. Reviewed with Patient Goals Home Exercise Program Patient Understanding Fair Plan Comment 12 weeks Treatment Frequency Once a Week Therapeutic Contents Adaptive Equipment Education Client Education Cognitive Skills Development Functional Activities Home Exercise Program Education Neurodevelopment Treatment Neuromuscular Re-Education Self-Care Therapeutic Activities Therapeutic Exercises Patient Instruction Home Exercise Program Plan of Care Questions/Concerns Other Comment Consult w/ DIRECTOR CHECK & PT Sensory Assessment Sensory Profile2 Functional Wrist/Hand Scan Hand Side OT Outpatient Treatment Note - Adult Start: 01/06/18 12:39 Freq: Status: Active Protocol: Document 06/02/18 11:57 AMS (Rec: 06/02/18 12:09 AMS [id number]) OT Outpatient Adult Treatment Note Session Time Visit Start Time 13:38 Visit Stop Time 14:30 Total Visit Minutes 52 Visit Information Visit Number 12/20; 05/27 Plan of Care Dates 03/30/18-06/22/18 Insurance Information g-codes required; 15 visits authorized Setting Treatment Setting Outpatient Care Visit Type Note Type Treatment Note General Information General Information Patient is a 62 year-old female referred to outpatient OT secondary to progressive MS and subsequent decreasing fine motor control. Medical History form was completed by patient's sister, CLAUDIA, and placed in paper chart. Significant for the following: On medications to treat UTI. Knee surgery 1994. - Subjective Identification Type Name Identification Reconciled With Medical Record Others Present Family Observations No I don't have any more questions per Sabiha. Chief Complaint(s) Restricts Parent/Guardian/Supervisor Doping Expectation/ Decrease burden of care; Goals increase functional independence Patient/Caregiver Compliance with Home Fair Exercise Program Comments needs assist from caretakers - Objective Objective Measurements Please refer to below for progress towards meeting established goals. Short Term Goals GOAL DISCHARGED Based on family and patient verbal report, patient will be actively utilizing compensatory strategies to promote functional independence with self feeding on daily basis with minimal verbal cues from caretakers. 06/02/18= Able to use fork and spoon; diff w/ cutting/ slicing. Recommended continued practice GOAL DISCHARGED Patient will be able to execute alternating crosses x 10, while seated in wheelchair, with no more than 1 error, requiring direct model and minimal verbal cues from therapist. 04/27/18= 25% met (min v.c. w/ walking on towel) Directory Carrier Goals GOAL MET Patient will be able to execute home exercise program with support from family members and caretakers utilizing provided written and visual instructions on a regular basis. 06/02/18= GOAL MET GOAL DISCHARGED Based on family and patient verbal report, patient will be actively engaging in 1 self- identified meaningful activity on a daily basis, other than watching television, for approximately 5 minutes, requiring minimal verbal and visual cues from caretakers. 06/02/18= inconsistent; needs support to initiate participation - Treatment 3 Descriptor Functional activities Object manipulation Modifications Required Yes Complexity No Change 2 Descriptor Bimanual tasks Modifications Required Yes Complexity No Change Exercises 1 Descriptor HEP reviewed w/ patient and [id number]. Recommended daily engagement in meaningful activity outside of television (playing cards, completing word searches, games, writing, practicing signature). Discussed different approaches to support Sabiha's success. Recommended d/c from OT at this time w/ follow-up as needed in a few months w/ increased practice of writing/ use of hands w/ engagement in games. Complexity Upgraded - Assessment Patient Response to Treatment Fair Rehab Potential Fair Impairments Identified ADLs Cognition Coordination/Dexterity Functional Activities Memory Motor Function Weakness Posture Recreational Activities Meaningful Activities Insight Vision Motor Planning Eye-Hand Coordination Assessment of Improvement Sabiha has demonstrated improved writing legibility ( relative to personal signature ), as well as improved active engagement in meaningful activities outside of watching television w/ support for consistency since time of initial evaluation. Sabiha and [id number] have been instructed on HEP and denied questions. D/C recommended at this time given need for increased daily practice/ engagement in activities to support hand function/motor planning so that treatment activities can be advanced, as well as HEP advancement. Patient also continues to receive oupt PT; PT addressing UE motor coordination/ strength. Thus, patient to be d/c and therapist to re- evaluate as appropriate in the future as deemed appropriate by PCP. It is important to note the patient and family education was completed over treatment to support functional independence. Home Exercise Program Please refer to treatment section of note for specific details. Reviewed with Patient/Caregiver Goals Progress Being Made Home Exercise Program Patient/Caregiver Understanding Good - Plan Therapy Recommendations Discharge from Occupational Therapy Additional Therapy Recommendations Consult w/ DIRECTOR CHECK & PT
== END 2018-06-11 10:16 ==
LOC: OT 13:30
PROVIDERS: Family Provider Family Medicine; PCP Family Medicine; Visit Provider Physician Assistant
DX: G35 Multiple sclerosis (principal)
CPT/HCPCS: 97166; 97530; 97535

== ENCOUNTER → 2018-08-18 10:11 | Outpatient (CLI) | payer OTHER, SELFPAY ==
[2018-08-18 11:01] LABS: Alanine Aminotransferase 31 IU/L (9-52); Albumin 4.4 g/dL (3.5-5.0); Albumin Globulin Ratio 1.3 (1.0-2.8); Alkaline Phosphatase 63 U/L (38-126); Aspartate Aminotransferase 31 IU/L (14-36); BUN Creatinine Ratio 25.7 (6-22); Bilirubin Total 0.4 mg/dL (0.2-1.3); Blood Urea Nitrogen 18 mg/dL (7-17); Calcium 9.3 mg/dL (8.4-10.2); Carbon Dioxide 31 mmol/L (22-32); Chloride 104 mmol/L (98-107); Cholesterol 231 mg/dL (140-199); Estimated Glomerular Filt Rate > 60.0 mL/min (>60); Globulin 3.5 g/dL (1.7-4.1); Glucose 87 mg/dL (80-110); HDL Cholesterol 49 mg/dL (40-60); HEMOLYSIS 52 (0-50); LDL Cholesterol Calculated 147 mg/dL (<100); Potassium 4.5 mmol/L (3.4-5.1); Sodium 141 mmol/L (137-145); Total Protein 7.9 g/dL (6.3-8.2); Triglycerides 177 mg/dL (35-150)
[2018-08-18 11:47] LABS: Thyroid Stimulating Hormone 3.28 uIU/mL (0.47-4.68)
== END ==
PROVIDERS: PCP Family Medicine; Visit Provider Family Medicine
DX: E78.2 Mixed hyperlipidemia (principal); Z51.81 Encounter for therapeutic drug level monitoring
CPT/HCPCS: 36415; 80053; 80061; 84443

== ENCOUNTER → 2018-08-19 11:59 | Outpatient (CLI) | payer OTHER, SELFPAY ==
[2018-08-19 12:02] LABS: Bacteria Urine None Seen; RBC Urine None Seen (0-5/HPF); WBC Urine None Seen (0-5/HPF)
[2018-08-19 12:08] LABS: Appearance Urine UA CLOUDY; Bilirubin Urine UA NEGATIVE (NEGATIVE); Color Urine UA YELLOW; Glucose Urine UA NEGATIVE (Negative); Ketones Urine UA NEGATIVE (NEGATIVE); Leukocyte Esterase Urine UA 1+ (NEGATIVE); Nitrite Urine UA NEGATIVE (Negative); Occult Blood Urine UA NEGATIVE (Negative); Protein Urine UA NEGATIVE (Negative); Urobilinogen Urine UA 0.2 E.U./dL (0.2)
[2018-08-19 12:20] LABS: Amorphous Sediment Urine 3+; Culture Indicated Urine Cult Not Indicated; Squamous Epithelial Cell Urine 5-10 /HPF
== END ==
PROVIDERS: PCP Family Medicine; Visit Provider Family Medicine
DX: E78.2 Mixed hyperlipidemia (principal); Z51.81 Encounter for therapeutic drug level monitoring
CPT/HCPCS: 81001; 81015

== ENCOUNTER 2018-09-02 20:54 | Emergency (ER) | payer OTHER, SELFPAY ==
[2018-09-02 21:00] VITALS: BP 118/72; PULSE 110; RESP 18; TEMP 36.9; O2SAT 95
[2018-09-02 21:53] LABS: Add Manual Diff / Slide Review NO; Basophils Absolute Auto 100 /uL (0-100); Basophils Percent Auto 1.2 % (0-2); Eosinophils Absolute Auto 200 /uL (0-450); Eosinophils Percent Auto 3.3 % (2-4); Hematocrit 39.4 % (36-46); Hemoglobin 12.9 g/dL (12.0-16.0); Lymphocytes Absolute Auto 2100 /uL (1100-4500); Lymphocytes Percent Auto 28.5 % (25-40); Mean Corpuscular HGB Conc 32.7 % (30-36); Mean Corpuscular Hemoglobin 30.7 PG (26-34); Mean Corpuscular Volume 93.8 fL (80-100); Monocytes Absolute Auto 900 /uL (0-900); Monocytes Percent Auto 11.6 % (3-14); Neutrophils Absolute Auto 4100 /uL (1500-7000); Neutrophils Percent Auto 55.4 % (50-75); Platelet Count 229 X10^3/uL (150-400); Red Cell Distribution Width 14.3 % (11.6-14.8); White Blood Cell Count 7.5 X10^3/uL (4.5-11.0)
[2018-09-02 22:14] LABS: Alanine Aminotransferase 30 IU/L (9-52); Albumin Globulin Ratio 1.3 (1.0-2.8); Alkaline Phosphatase 67 U/L (38-126); Aspartate Aminotransferase 23 IU/L (14-36); BUN Creatinine Ratio 27.5 (6-22); Bilirubin Total 0.2 mg/dL (0.2-1.3); Blood Urea Nitrogen 22 mg/dL (7-17); Calcium 9.4 mg/dL (8.4-10.2); Carbon Dioxide 28 mmol/L (22-32); Chloride 104 mmol/L (98-107); Estimated Glomerular Filt Rate > 60.0 mL/min (>60); Glucose 100 mg/dL (80-110); HEMOLYSIS < 15 (0-50); Potassium 4.2 mmol/L (3.4-5.1); Sodium 140 mmol/L (137-145)
[2018-09-02 22:23] VITALS: BP 116/76; PULSE 92; RESP 18; O2SAT 97
[2018-09-02 22:26] LABS: Bacteria Urine None Seen; RBC Urine None Seen (0-5/HPF)
[2018-09-02 22:28] LABS: Appearance Urine UA CLEAR; Bilirubin Urine UA NEGATIVE (NEGATIVE); Color Urine UA YELLOW; Glucose Urine UA NEGATIVE (Negative); Ketones Urine UA NEGATIVE (NEGATIVE); Leukocyte Esterase Urine UA TRACE (NEGATIVE); Nitrite Urine UA NEGATIVE (Negative); Occult Blood Urine UA NEGATIVE (Negative); Protein Urine UA NEGATIVE (Negative); Specific Gravity Urine UA 1.015 (1.000-1.035); Urobilinogen Urine UA 0.2 E.U./dL (0.2)
[2018-09-02 22:36] LABS: WBC Urine 0-1/HPF (0-5/HPF)
[2018-09-02 22:38] LABS: Amorphous Sediment Urine 3+; Culture Indicated Urine Cult Not Indicated; Squamous Epithelial Cell Urine 1-5 /HPF
[2018-09-02 23:32] VITALS: BP 115/65; PULSE 86; RESP 20; O2SAT 96
[2018-09-02] MEDS: cephALEXin 250 MG CAPSULE 500 MG PO (23:59)
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
== END 2018-09-03 00:33 | disposition home or self-care (01) ==
PROVIDERS: Emergency Provider Emergency Medicine; Family Provider Family Medicine; PCP Family Medicine
DX: N39.0 Urinary tract infection, site not specified (principal)
CPT/HCPCS: 36591; 80053; 81001; 85025; 99283

== ENCOUNTER 2018-09-16 05:24 | Emergency (ER) | payer OTHER, SELFPAY ==
[2018-09-16 05:28] VITALS: BP 121/59; PULSE 90; RESP 15; TEMP 36.3; O2SAT 96
--- NOTE | 2018-09-16 05:41 | DI.CT.S_ITS ---
PROCEDURE: CT HEAD/BRAIN WO CON INDICATIONS: Fall. Head injury TECHNIQUE: Noncontrast 4.5 mm thick angled axial sections acquired from the foramen magnum to the vertex, with coronal and sagittal reformats. For radiation dose reduction, the following was used: automated exposure control, adjustment of mA and/or kV according to patient size. COMPARISON: None. FINDINGS: Image quality: Excellent. CSF spaces: Basal cisterns are patent. No extra-axial fluid collections. The ventricles are symmetric in size and shape. Brain: No intracranial bleeds or masses. There is cerebral volume loss for age, with resultant ventricular and sulcal prominence. There are periventricular and deep white matter chronic small vessel ischemic changes. There is intracranial internal carotid artery atherosclerosis. Skull and face: Calvarium and visualized facial bones appear intact, without suspicious lesions. Large left frontal scalp hematoma noted. Sinuses: Visualized sinuses and mastoids are clear. IMPRESSION: No acute intracranial disease process. Dictated by: Desiree Becerril MD, PhD on 09/16/2018 at 7:08 Approved by: Desiree Becerril MD, PhD on 09/16/2018 at 7:09
--- NOTE | 2018-09-16 06:37 | ED_ITS ---
HPI - Fall General Chief Complaint: Fall Stated Complaint: GLF Time Seen by Provider: 09/16/18 05:33 Source: patient Mode of arrival: ambulatory Limitations: no limitations History of Present Illness HPI Narrative: The patient has MS. She resides at [facility]. Prior to arrival she was attempting to get out of bed. She stumbled in the ER, falling forward and striking her forehead on a small table. She fell to the floor without further injury. She arrives by EMS with out LOC, visual changes, or bleeding from the head. She complains of no dizziness or nausea. She does have a large hematoma on her forehead. She is not anticoagulated. There is no associated neck, back, or extremity injuries. She moves all extremities without issue. She has no palpitations, or dyspnea. There was no syncope. She has MS. She has not acutely weak. She has no history of recurrent falls. Related Data Home Medications Medication Instructions Recorded Confirmed Fish Oil 1,000 mg PO QDAY #0 tab 02/21/16 VITAMIN D (Vitamin D3) 2,000 unit PO QDAY #0 02/21/16 [CRANBERRY PLUS C] #0 02/21/16 [FLORAVAS PROBIOTIC] #0 02/21/16 [Rentone] 1 cap PO Q DAY #0 02/21/16 ascorbic acid (vitamin C) 1,000 mg PO QDAY #0 tab 02/21/16 ibuprofen 400 mg PO Q4HP PRN #0 02/21/16 Previous Rx's Medication Instructions Recorded methylphenidate HCl 5 mg PO QDAY #30 04/13/12 calcium carbonate-vitamin D3 1 tab PO QDAY #30 tab 11/25/16 [Calcium 600 with Vitamin D3] meclizine 12.5 mg PO Q4HP PRN #14 tab 08/08/17 nitrofurantoin monohyd/m-cryst 100 mg PO BID #20 cap 08/26/17 [Macrobid] cyanocobalamin (vit B-12) ER 1,000 1,000 mcg PO QDAY #30 tab 02/02/18 mcg tablet,extended release omega 3-jts-tvv-fish oil [Fish Oil] 1,000 mg PO QDAY #30 cap 04/19/18 fluoxetine 40 mg capsule 40 mg PO Q DAY #30 cap 07/19/[address] permit #1 ea 08/26/18 benztropine 0.5 mg tablet 0.5 mg PO HS 90 Days #90 tab 08/26/18 quetiapine 25 mg tablet 25 mg PO BID 90 Days #180 tab 08/26/18 melatonin 5 mg tablet 10 mg PO HS #30 tab 08/30/18 trazodone 50 mg tablet 50 mg PO HS #30 tab 08/30/18 cephalexin [Keflex] 500 mg PO BID #10 cap 09/02/18 Allergies Allergy/AdvReac Type Severity Reaction Status Date / Time sulfadiazine Allergy Mild RASH Verified 08/26/18 15:08 Review of Systems Review of Systems ROS Unobtainable: All systems reviewed & are unremarkable except as noted in HPI and below Constitutional Denies fever(s), Denies lethargy and Denies weakness Eyes Denies change in vision ENT Ears, Nose, Mouth, and Throat: Denies neck pain, Denies sore throat and Reports other (For head injury) Cardiovascular Denies chest pain, Denies irregular heart rhythm, Denies lightheadedness, Denies palpitations, Denies dyspnea and Denies orthopnea Respiratory Denies cough and Denies dyspnea Gastrointestinal Gastrointestinal: Denies abdominal pain, Denies nausea and Denies vomiting Musculoskeletal Denies back pain, Denies neck pain, Denies numbness and Reports other (No extremity pain or deformity) Integumentary/Breasts Denies erythema and Denies wounds Neurologic Denies numbness and Denies weakness Endocrine Denies palpitations Exam Initial Vital Signs Initial Vital Signs: Vital Signs Temperature 97.4 F L 09/16/18 05:28 Pulse Rate 90 09/16/18 05:28 Respiratory Rate 15 09/16/18 05:28 Blood Pressure 121/59 L 09/16/18 05:28 Pulse Oximetry 96 09/16/18 05:28 Const General: cooperative, healthy appearing and comfortable Nutritional Appearance: average body habitus Orientation: alert, awake and oriented x3 HENMT Head: contusion (Left forehead), No laceration and other (Left for hematoma without palpable skull defect) Eyes General: appearance normal, both eyes and all related structures Eyelids: eyelids normal Conjunctivae: conjunctivae normal Sclera: sclerae normal Pupils: PERRL EOM: EOM intact bilaterally Neck Neck: normal visual inspection, trachea midline, No lymphadenopathy, No midline deformity and No JVD Chest Chest: normal inspection of the chest Resp Effort & Inspection: normal respiratory effort and able to speak in complete sentences Auscultation: clear to auscultation bilaterally, no rales, no rhonchi and no wheezes Cardio Rate: regular rate Rhythm: regular rhythm Heart Sounds: no click, no gallops, no murmurs and no rubs Pulses: normal peripheral pulses Back/Spine/Pelvis Back: No back tenderness Cervical Spine: No pain with cervical ROM Thoracic/Lumbar Spine: thoracic and lumbar spine normal to inspection Skin General: no rashes or lesions noted Neuro General: alert, oriented x3, gait normal and no focal motor deficits Speech: speech normal Extrem General: full ROM, no clubbing, cyanosis or edema, no pedal edema, no calf tenderness and other (No extremity trauma) Psych Appearance: well kempt Mental Status: mental status grossly normal Attitude: cooperative Thought Content: normal Judgment: judgment good [facility] Medical History 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 No acute intracranial abnormality. A left frontal scalp hematoma is noted. ECG Data Attestation: I personally reviewed and interpreted this ECG as follows: Discharge Plan Departure Patient Disposition: Home Clinical Impression: Hematoma of frontal scalp Qualifiers: Encounter type: initial encounter Qualified Code(s): S00.03XA - Contusion of scalp, initial encounter Instructions: How to Prevent Falls Activity Restrictions/Additional Instructions: Tylenol 2 tablets every 4 hr as needed for pain. Apply ice packs to the forehead frequently for the next 2 days as needed. Return to the ER if necessary. Prescriptions: No Action Disabled parking permit Qty: 1 RF: 0 benztropine 0.5 mg tablet 0.5 mg PO HS 90 Days Qty: 90 RF: 0 quetiapine 25 mg tablet 25 mg PO BID 90 Days Qty: 180 RF: 0 [CRANBERRY PLUS C] Qty: 0 RF: 0 [FLORAVAS PROBIOTIC] Qty: 0 RF: 0 VITAMIN D (Vitamin D3) 2,000 unit PO QDAY Qty: 0 RF: 0 ascorbic acid (vitamin C) 500 MG tablet 1,000 mg PO QDAY Qty: 0 RF: 0 Fish Oil 1,000 mg PO QDAY Qty: 0 RF: 0 [Rentone] 1 cap PO Q DAY Qty: 0 RF: 0 ibuprofen 200 MG tablet 400 mg PO Q4HP PRNQty: 0 RF: 0 calcium carbonate-vitamin D3 [Calcium 600 with Vitamin D3] 600 MG/200 IU capsule 1 tab PO QDAY Qty: 30 RF: 6 meclizine 12.5 MG tablet 12.5 mg PO Q4HP PRNQty: 14 RF: 0 nitrofurantoin monohyd/m-cryst [Macrobid] 100 MG capsule 100 mg PO BID Qty: 20 RF: 0 cyanocobalamin (vitamin B-12) 1,000 mcg tablet extended release 1,000 mcg PO QDAY Qty: 30 RF: 6 omega 1-ifb-nxt-fish oil [Fish Oil] 1,000 mg (120 mg-180 mg) capsule 1,000 mg PO QDAY Qty: 30 RF: 6 fluoxetine 40 mg capsule 40 mg PO Q DAY Qty: 30 RF: 3 melatonin 5 mg tablet 10 mg PO HS Qty: 30 RF: 6 trazodone 50 mg tablet 50 mg PO HS Qty: 30 RF: 3 cephalexin [Keflex] 500 mg capsule 500 mg PO BID Qty: 10 RF: 0 Referrals: Dariana Stratton DO [Primary Care Provider] -
[2018-09-16] MEDS: ACETAMINOPHEN 325 MG TABLET 650 MG PO (06:50)
[2018-09-16 07:02] VITALS: BP 112/44; PULSE 80; RESP 14; O2SAT 99
== END 2018-09-16 07:17 | disposition home or self-care (01) ==
PROVIDERS: Emergency Provider Emergency Medicine; Family Provider Family Medicine; PCP Family Medicine
DX: S00.03XA Contusion of scalp, initial encounter (principal); W01.190A Fall on same level from slipping, tripping and stumbling with subsequent striking against furniture, initial encounter
CPT/HCPCS: 70450; 99283; 99284

== ENCOUNTER 2018-11-25 21:44 | Emergency (ER) | payer OTHER, SELFPAY ==
[2018-11-25 22:00] VITALS: BP 111/65; PULSE 85; RESP 18; TEMP 36.6; O2SAT 96; BMI 32.8
--- NOTE | 2018-11-25 22:11 | DI.RAD.S_ITS ---
PROCEDURE: XR ANKLE LT MIN 3V INDICATIONS: Fall, ankle pain s/p fall TECHNIQUE: 3 views of the ankle were acquired. COMPARISON: [facility], , ANKLE 3 VIEWS LEFT, 04/05/2014, 11:19. FINDINGS: Bones: Chronic right medial malleolus avulsion fracture is stable compared to the prior exam. Ankle mortise is normally aligned. No suspicious bony lesions. Soft tissues: No tibiotalar joint effusion. Achilles tendon appears normal. Lateral soft tissue swelling is noted and ligamentous injury cannot be excluded. IMPRESSION: No fracture. No acute osseous lesion. If symptoms and/or clinical suspicion for pathology persists, further assessment with repeat radiographs (7-10 days) or advanced imaging (e.g. CT, MRI or bone scan) may be helpful. Dictated by: Desiree Becerril MD, PhD on 11/26/2018 at 7:54 Approved by: Desiree Becerril MD, PhD on 11/26/2018 at 7:58
--- NOTE | 2018-11-25 22:47 | ED.LOWEXIN ---
HPI - Extremity Injury (Lower) General Chief Complaint: Extremity Injury, Lower Stated Complaint: LT FOOT INJURY S/P FALL Time Seen by Provider: 11/25/18 22:46 Source: patient Mode of arrival: wheelchair Limitations: no limitations History of Present Illness HPI Narrative: Patient is a 63-year-old female. Has a history of MS. It has been most of the time in a wheelchair. Was at her care facility when they were helping her get out of the shower when she had what appeared to be an inversion injury to the left foot. His swelling over the lateral malleolus. No breaks in the skin. Related Data Home Medications Medication Instructions Recorded Confirmed Fish Oil 1,000 mg PO QDAY #0 tab 02/21/16 09/21/18 VITAMIN D (Vitamin D3) 2,000 unit PO QDAY #0 02/21/16 09/21/18 [CRANBERRY PLUS C] #0 02/21/16 09/21/18 ascorbic acid (vitamin C) 1,000 mg PO QDAY #0 tab 02/21/16 09/21/18 ibuprofen 400 mg PO Q4HP PRN #0 02/21/16 09/21/18 Previous Rx's Medication Instructions Recorded methylphenidate HCl 5 mg PO QDAY #30 04/13/12 calcium carbonate-vitamin D3 1 tab PO QDAY #30 tab 11/25/16 [Calcium 600 with Vitamin D3] meclizine 12.5 mg PO Q4HP PRN #14 tab 08/08/17 nitrofurantoin monohyd/m-cryst 100 mg PO BID #20 cap 08/26/17 [Macrobid] cyanocobalamin (vit B-12) ER 1,000 1,000 mcg PO QDAY #30 tab 02/02/18 mcg tablet,extended release omega 5-mhd-uvz-fish oil [Fish Oil] 1,000 mg PO QDAY #30 cap 04/19/[address] permit #1 ea 08/26/18 melatonin 5 mg tablet 10 mg PO HS #30 tab 08/30/18 trazodone 50 mg tablet 50 mg PO HS #30 tab 08/30/18 cephalexin [Keflex] 500 mg PO BID #10 cap 09/02/18 fluoxetine 40 mg capsule 40 mg PO Q DAY #30 cap 11/22/18 Allergies Allergy/AdvReac Type Severity Reaction Status Date / Time sulfadiazine Allergy Mild RASH Verified 09/21/18 16:41 Review of Systems Constitutional Denies fever(s), Denies frequent falls and Denies headache(s) ENT Ears, Nose, Mouth, and Throat: Denies headache(s) and Denies disequilibrium Musculoskeletal Denies tingling Comments: Left ankle pain Integumentary/Breasts Comments: Swelling over the left ankle Neurologic Denies frequent falls, Denies headache(s), Denies tingling and Denies disequilibrium Hematologic/Lymphatic Denies easy bleeding and Denies easy bruising [facility] Medical History 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 Neuro Other: Sensation intact to light touch left lower extremity Extrem Other: No proximal fibula tenderness on the left. Does have tenderness to palpation over the lateral malleolus and also the medial malleolus. No hamstring tenderness. Psych Appearance: grossly normal and well kempt Course Orders Ordered: ED Orders 11/25/18 22:11 XR ankle LT min 3V Stat Vital Signs - 8 hr 11/25/18 22:00 11/25/18 23:10 Temperature 97.8 F Pulse Rate 85 85 Respiratory Rate 18 18 Blood Pressure 111/65 103/62 Pulse Oximetry 96 96 MDM - Extremity Injury (Lower) Imaging Data X-ray left ankle: Attestation: I personally reviewed and interpreted this imaging study as follows: My impression: No fractures, no dislocations, no acute pathology MDM Narrative Medical decision making narrative: Patient with no proximal fibular tenderness. There is no change in neurologic status. No fractures are noted on the x-rays. We did discussed rice treatment. Patient and family were given care instructions and return precautions. Expressed understanding and agreement with plan. Discharge Plan Departure Patient Disposition: Home Clinical Impression: Ankle sprain and strain Discharge Date/Time: 11/25/18 23:10 Interventions: ED Discharge Assessment Last Done: 11/25/18 23:10 Instructions: DI for Ankle Sprain Activity Restrictions/Additional Instructions: There was no fractures on the x-ray. You can walk on your leg as needed. Keep your foot elevated and iced like we discussed. I do recommending icing for 20 minutes every couple hours. Contact your primary doctor for a follow-up. Return to the emergency department for any new or worsening symptoms Prescriptions: No Action Disabled parking permit Qty: 1 RF: 0 [CRANBERRY PLUS C] Qty: 0 RF: 0 VITAMIN D (Vitamin D3) 2,000 unit PO QDAY Qty: 0 RF: 0 ascorbic acid (vitamin C) 500 MG tablet 1,000 mg PO QDAY Qty: 0 RF: 0 Fish Oil 1,000 mg PO QDAY Qty: 0 RF: 0 ibuprofen 200 MG tablet 400 mg PO Q4HP PRNQty: 0 RF: 0 calcium carbonate-vitamin D3 [Calcium 600 with Vitamin D3] 600 MG/200 IU capsule 1 tab PO QDAY Qty: 30 RF: 6 meclizine 12.5 MG tablet 12.5 mg PO Q4HP PRNQty: 14 RF: 0 nitrofurantoin monohyd/m-cryst [Macrobid] 100 MG capsule 100 mg PO BID Qty: 20 RF: 0 cyanocobalamin (vitamin B-12) 1,000 mcg tablet extended release 1,000 mcg PO QDAY Qty: 30 RF: 6 omega 5-sso-yop-fish oil [Fish Oil] 1,000 mg (120 mg-180 mg) capsule 1,000 mg PO QDAY Qty: 30 RF: 6 melatonin 5 mg tablet 10 mg PO HS Qty: 30 RF: 6 trazodone 50 mg tablet 50 mg PO HS Qty: 30 RF: 3 fluoxetine 40 mg capsule 40 mg PO Q DAY Qty: 30 RF: 5 cephalexin [Keflex] 500 mg capsule 500 mg PO BID Qty: 10 RF: 0 Referrals: Dariana Stratton DO [Primary Care Provider] -
[2018-11-25 23:10] VITALS: BP 103/62; PULSE 85; RESP 18; O2SAT 96
== END 2018-11-25 23:10 | disposition home or self-care (01) ==
PROVIDERS: Emergency Provider Emergency Medicine; Family Provider Family Medicine; PCP Family Medicine
DX: S93.401A Sprain of unspecified ligament of right ankle, initial encounter (principal); W19.XXXA Unspecified fall, initial encounter
CPT/HCPCS: 73610; 99282; 99283

== ENCOUNTER → 2018-11-30 22:09 | Outpatient (ROUT) | payer OTHER, SELFPAY ==
[2018-11-30 22:11] LABS: RBC Urine None Seen (0-5/HPF)
[2018-11-30 23:20] LABS: Appearance Urine UA SL CLOUDY; Bilirubin Urine UA NEGATIVE (NEGATIVE); Color Urine UA YELLOW; Glucose Urine UA NEGATIVE (Negative); Ketones Urine UA NEGATIVE (NEGATIVE); Leukocyte Esterase Urine UA 1+ (NEGATIVE); Nitrite Urine UA NEGATIVE (Negative); Occult Blood Urine UA NEGATIVE (Negative); Protein Urine UA TRACE (Negative); Urobilinogen Urine UA 0.2 E.U./dL (0.2)
[2018-11-30 23:31] LABS: Squamous Epithelial Cell Urine 1-5 /HPF (0-5/HPF); WBC Urine 5-10/HPF (0-5/HPF)
[2018-11-30 23:32] LABS: Amorphous Sediment Urine 1+; Bacteria Urine Many (>30); Culture Indicated Urine Specimen Cultured
== END ==
PROVIDERS: Family Provider Family Medicine; PCP Family Medicine; Visit Provider Family Medicine
DX: Z87.440 Personal history of urinary (tract) infections (principal); R41.0 Disorientation, unspecified
CPT/HCPCS: 81001; 87077; 87086

== ENCOUNTER → 2018-12-28 20:30 | Outpatient (ROUT) | payer OTHER, SELFPAY ==
[2018-12-28 20:35] LABS: RBC Urine None Seen (0-5/HPF)
[2018-12-28 20:42] LABS: Appearance Urine UA SL CLOUDY; Bilirubin Urine UA NEGATIVE (NEGATIVE); Color Urine UA YELLOW; Glucose Urine UA NEGATIVE (Negative); Ketones Urine UA NEGATIVE (NEGATIVE); Leukocyte Esterase Urine UA 1+ (NEGATIVE); Nitrite Urine UA POSITIVE (Negative); Occult Blood Urine UA NEGATIVE (Negative); Protein Urine UA NEGATIVE (Negative); Urobilinogen Urine UA 0.2 E.U./dL (0.2); pH Urine UA 6.5 (4.5-8.0)
[2018-12-28 20:49] LABS: Amorphous Sediment Urine 1+; Bacteria Urine Many (>30); Culture Indicated Urine Specimen Cultured; Squamous Epithelial Cell Urine 0-1 /HPF (0-5/HPF); WBC Urine 10-30/HPF (0-5/HPF)
== END ==
PROVIDERS: Family Provider Family Medicine; PCP Family Medicine; Visit Provider Family Medicine
DX: N39.0 Urinary tract infection, site not specified (principal)
CPT/HCPCS: 81001; 87077; 87086; 87186

== ENCOUNTER → 2019-01-06 18:51 | Outpatient (CLI) | payer OTHER, SELFPAY ==
--- NOTE | 2019-01-06 19:04 | DI.MRI.S_ITS ---
PROCEDURE: MR ANKLE LT WO CON INDICATIONS: evaluation, unable to bear much weight on left ankle TECHNIQUE: Noncontrast sagittal T1 spin echo and T2 fast spin echo with fat saturation, axial proton density fast spin echo and T2 fast spin echo with fat saturation, coronal T1 spin echo and T2 fast spin echo with fat saturation through the ankle/hindfoot. COMPARISON: None. FINDINGS: Image quality: Excellent. Bones and joints: There is marrow edema involving anterior and medial portion of talus, with internal subtle linear hypointense signal concerning for nondisplaced fracture or stress fracture in this area. No other area of abnormal marrow signal is seen. No hindfoot coalitions. No osteochondral injuries of the talar dome. Small amount of fluid within tibiotalar joint and subtalar joint is seen. No gross intra-articular loose body. Soft tissue swelling around ankle joint is seen. Medial structures: The posterior tibialis, flexor digitorum longus, and flexor hallucis longus tendons are intact. The posterior tibial neurovascular bundle appears normal within the tarsal tunnel, without extrinsic mass effect. The deep layer (anterior and posterior tibiotalar ligaments) and superficial layer (tibionavicular, tibiospring, and tibiocalcaneal ligaments) of the deltoid ligament appear normal. The spring ligament components (superomedial calcaneonavicular, medioplantar oblique calcaneonavicular, and inferoplantar longitudinal ligaments) are intact. Lateral structures: The anterior talofibular, calcaneofibular, and posterior talofibular ligaments appear intact. More superiorly, the anterior and posterior tibiofibular ligaments appear intact, as is the intermalleolar ligament. The tibiofibular syndesmosis is normal in width at 2 mm or less. The peroneus longus and brevis tendons demonstrate normal location and morphology. Adjacent bony peroneal tubercle and retrotrochlear prominence are normal in size. The sinus tarsi demonstrates normal fatty signal, without edema, fibrosis, or cyst formation. Visualized sinus tarsi components (cervical ligament, interosseous talocalcaneal ligament, roots of the inferior extensor retinaculum) appear normal. The calcaneonavicular and calcaneocuboid components of the bifurcate ligament appear intact. The dorsal calcaneocuboid ligament appears intact. Anterior structures: The tibialis anterior, extensor hallucis longus, and extensor digitorum longus tendons appear intact. The dorsal talonavicular ligament appears intact. Posterior and plantar structures: Achilles tendon is intact. Medial and lateral bands of the plantar fascia are of normal thickness. No abductor digiti quinti muscle atrophy to suggest Almendarez neuropathy. IMPRESSION: 1. Finding is concerning for nondisplaced fracture or stress fracture involving anterior and medial portion of talus adjacent to the talonavicular joint. No other area of fracture or dislocation is seen. [id number] amount of joint fluid, no gross loose body. Mild soft tissue swelling around ankle joint. 2. Ankle tendons and ligaments are grossly intact. Dictated by: Mitchel Cardona M.D. on 01/07/2019 at 9:29 Approved by: Mitchel Cardona M.D. on 01/07/2019 at 9:58
== END ==
PROVIDERS: Family Provider Family Medicine; PCP Family Medicine; Visit Provider Family Medicine
DX: S93.402A Sprain of unspecified ligament of left ankle, initial encounter (principal); S96.912A Strain of unspecified muscle and tendon at ankle and foot level, left foot, initial encounter; X58.XXXA Exposure to other specified factors, initial encounter
CPT/HCPCS: 73721

== ENCOUNTER → 2019-03-16 15:22 | Outpatient (CLI) | payer OTHER, SELFPAY ==
--- NOTE | 2019-03-16 | DI.RAD.S_ITS ---
PROCEDURE: XR FOOT LT MIN 3V INDICATIONS: LEFT FOOT TOE PAIN TECHNIQUE: 3 views of the foot were acquired. COMPARISON: None. FINDINGS: Bones: No dislocations. No suspicious bony lesions. There appears to be a fracture involving the distal aspect of the fifth proximal phalanx given irregularity of the cortical margin. No dislocation. Soft tissues: No tibiotalar joint effusion. Achilles tendon appears normal. IMPRESSION: Fifth proximal phalanx fracture distally at the metadiaphyseal junction. Dictated by: Chauncey Dia M.D. on 03/16/2019 at 16:38 Approved by: Chauncey Dia M.D. on 03/16/2019 at 16:39
== END ==
PROVIDERS: Family Provider Family Medicine; PCP Family Medicine; Visit Provider Family Medicine
DX: M79.675 Pain in left toe(s) (principal); S92.512A Displaced fracture of proximal phalanx of left lesser toe(s), initial encounter for closed fracture; W19.XXXA Unspecified fall, initial encounter
CPT/HCPCS: 73630

== ENCOUNTER → 2019-04-01 08:09 | Outpatient (CLI) | payer OTHER, SELFPAY | PROVIDERS: Family Provider Family Medicine; PCP Family Medicine; Visit Provider Hospitalist | DX: L72.3 Sebaceous cyst (principal) | CPT/HCPCS: 87070; 87077; 87186; 87205 ==

== ENCOUNTER → 2019-06-14 18:49 | Outpatient (ROUT) | payer OTHER, SELFPAY ==
[2019-06-14 19:13] LABS: Appearance Urine UA CLOUDY; Bilirubin Urine UA NEGATIVE (NEGATIVE); Color Urine UA YELLOW; Glucose Urine UA NEGATIVE (Negative); Ketones Urine UA NEGATIVE (NEGATIVE); Leukocyte Esterase Urine UA 2+ (NEGATIVE); Nitrite Urine UA NEGATIVE (Negative); Occult Blood Urine UA NEGATIVE (Negative); Protein Urine UA NEGATIVE (Negative); Specific Gravity Urine UA 1.015 (1.000-1.035); Urobilinogen Urine UA 0.2 E.U./dL (0.2)
[2019-06-14 19:28] LABS: pH Urine UA 6.5 (4.5-8.0)
[2019-06-14 19:49] LABS: RBC Urine 5-10/HPF (0-5/HPF); WBC Urine 10-30/HPF (0-5/HPF)
[2019-06-14 19:50] LABS: Bacteria Urine Many (>30); Culture Indicated Urine Specimen Cultured
== END ==
PROVIDERS: Family Provider Family Medicine; PCP Family Medicine; Visit Provider Family Medicine
DX: R39.15 Urgency of urination (principal)
CPT/HCPCS: 81001; 87077; 87086

== ENCOUNTER → 2019-09-01 08:13 | Outpatient (CLI) | payer OTHER, SELFPAY ==
[2019-09-01 09:33] LABS: Alanine Aminotransferase 20 IU/L (<35); Albumin 3.9 g/dL (3.5-5.0); Albumin Globulin Ratio 1.1 (1.0-2.8); Alkaline Phosphatase 82 U/L (38-126); Aspartate Aminotransferase 25 IU/L (14-36); Bilirubin Total 0.4 mg/dL (0.2-1.3); Blood Urea Nitrogen 18 mg/dL (7-17); Calcium 9.5 mg/dL (8.4-10.2); Carbon Dioxide 28 mmol/L (22-32); Chloride 104 mmol/L (98-107); Cholesterol 251 mg/dL (140-199); Estimated Glomerular Filt Rate > 60.0 mL/min (>60); Globulin 3.4 g/dL (1.7-4.1); Glucose 89 mg/dL (80-110); HEMOLYSIS < 15 (0-50); Sodium 141 mmol/L (137-145); Total Protein 7.3 g/dL (6.3-8.2); Triglycerides 203 mg/dL (35-150)
[2019-09-01 10:00] LABS: HDL Cholesterol 37 mg/dL (40-60); LDL Cholesterol Calculated 173 mg/dL (<100)
[2019-09-01 10:08] LABS: TSH w/ Reflex to FT4 5.42 uIU/mL (0.47-4.68)
[2019-09-01 10:33] LABS: Free T4, Direct Thyroxine 0.98 ng/dL (0.78-2.19)
== END ==
PROVIDERS: Family Provider Family Medicine; PCP Nurse Practitioner Family; Referring Provider Nurse Practitioner Family; Visit Provider Nurse Practitioner Family
DX: F32.9 Major depressive disorder, single episode, unspecified (principal); R63.5 Abnormal weight gain; G35 Multiple sclerosis; E78.2 Mixed hyperlipidemia
CPT/HCPCS: 36415; 80053; 80061; 84439; 84443

== ENCOUNTER 2019-09-08 16:00 | Outpatient (RCR) | payer OTHER, SELFPAY ==
--- NOTE | 2017-11-12 16:13 | PT.OTN ---
Current Diagnoses Multiple sclerosis (11/19/17) Muscle weakness (generalized) (11/19/17) Ataxic gait (11/19/17) Unsteadiness on feet (11/19/17) Transition note: On November 10, 2017 our therapy services consisting of Speech, Occupational, and Physical Therapy transitioned from the [employer] electronic documentation system to a new [employer] electronic documentation system.?? All documentation prior to November 10 can be found under [employer] saved data. From November 10 forward all medical record documentation will be in [employer] 6.1.
--- NOTE | 2017-11-19 17:36 | PT.OTN ---
Current Diagnoses Multiple sclerosis (11/19/17) Muscle weakness (generalized) (11/19/17) Ataxic gait (11/19/17) Unsteadiness on feet (11/19/17) Physical Therapy Treatment Note PT-OP-A Visit Information Start: 11/19/17 17:22 Freq: Status: Active Protocol: Document 11/19/17 16:05 DCW (Rec: 11/19/17 17:36 DCW [id number]) Out-Patient Physical Therapy Visit Information Visit Information Visit Type Treatment Note Visit Start Time 16:05 Visit Stop Time 16:45 Total Visit Minutes 40 Visit Number 56 Number of INTERNATIONAL PROJECT ENGINEER Visits 0 Evaluation Information Evaluation Date 02/06/16 PT-OP-C Subjective Start: 11/19/17 17:22 Freq: Status: Active Protocol: Document 11/19/17 16:05 DCW (Rec: 11/19/17 17:36 DCW [id number]) OP-PT Subjective Patient Comments Patient Comments I feel fine. Patient Reported Progress Same PT-OP-Q Treatments Start: 11/19/17 17:22 Freq: Status: Active Protocol: Document 11/19/17 16:05 DCW (Rec: 11/19/17 17:36 DCW [id number]) Cardio Equipment Upper Body Ergometer (UBE) Duration (Minutes) 5 RPM 60 Other Forward/Backward Gym Equipment Shuttle Recovery Unilateral Squats Resistance 25# Reps/Time 5 Bilateral Squats Resistance 75# Shuttle Recovery Platform Stable Reps/Time 5 Gait Training Gait Activity 1 Device Used FWW Level of Assistance Mod Ax1 /c w/c follow Surface Level Distance/Duration 10'- 20' x5 Treatment Focus Knee extension/quad activation , activity tolerance Neuro Re-Education Treatment Coordination Activities 1 Details Cone activities Equipment Cones Reps/Duration 10 Comments Using feet to knock over cones for coordination training/ neuromuscular re-education PT-OP-T Assessment and Plan Start: 11/19/17 17:22 Freq: Status: Active Protocol: Document 11/19/17 16:05 DCW (Rec: 11/19/17 17:36 DCW [id number]) Physical Therapy Assessment Rehab Potential Rehabilitation Potential Fair Impairments Impairments Activity Tolerance Balance Coordination Functional Activities Functional Mobility Gait Posture ROM Soft Tissue Mobility Strength Tone Transfers Progress Towards Goals Progress Towards Goals Slow Progress due to Medical Issues Progress Comments Multiple Sclerosis Assessment Summary Assessment Patient ability tends to vary greatly day-to-day, and today was a more difficult day for her walking. Patient's knees were buckling almost constantly while trying to walk, and she was unable to walk more that 20' at one time . Physical Therapy Plan Frequency and Duration Frequency of Treatment 1x/Week Plan of Care Start Date 08/16/17 Plan of Care End Date 11/24/17 Therapeutic Interventions Therapeutic Interventions Aquatic Therapy Gait Training Home Exercise Program Joint Mobilizations Neuromuscular Re-education Patient/Caregiver Education Self-Care/Home Management Therapeutic Activities Therapeutic Exercises Next Visit Focus/Plan Next Visit Plan Reassessment of objective values for new plan of care
--- NOTE | 2017-11-26 17:06 | PT.OTN ---
Current Diagnoses Multiple sclerosis (11/26/17) Muscle weakness (generalized) (11/26/17) Ataxic gait (11/26/17) Unsteadiness on feet (11/26/17) Physical Therapy Treatment Note PT-OP-A Visit Information Start: 11/19/17 17:22 Freq: Status: Active Protocol: Document 11/26/17 16:00 DCW (Rec: 11/26/17 16:52 DCW [id number]) Out-Patient Physical Therapy Visit Information Visit Information Visit Type Treatment Note Visit Start Time 16:00 Visit Stop Time 16:45 Total Visit Minutes 45 Visit Number 57 Number of MANAGER CARE MANAGEMENT Visits 0 Evaluation Information Evaluation Date 02/06/16 PT-OP-B Current Condition Start: 11/26/17 16:53 Freq: Status: Active Protocol: Document 11/26/17 16:00 DCW (Rec: 11/26/17 17:00 DCW [id number]) Current Condition History of Current Condition History of Current Condition See Therapy [facility] for full patient history Treatment Goals Patient/Caregiver Goals Decrease burden of care Prior Functional Status Baseline Function- ADL's Needs Assist Baseline Function- Mobility Needs Assist Current Functional Impairments (Reported) Functional Limitations- Mobility/Gait Pt ambulates 80' CGA/Min Ax1 / c FWW Pt transfers stand-pivot Min Ax1 for balance and stability PT-OP-C Subjective Start: 11/19/17 17:22 Freq: Status: Active Protocol: Document 11/26/17 16:00 DCW (Rec: 11/26/17 16:52 DCW [id number]) OP-PT Subjective Patient Comments Patient Comments Pt's sister notes patient was recently seen by her neurologist, and the appointment went really well. Patient Reported Progress Same PT-OP-D Balance Start: 11/26/17 16:53 Freq: Status: Active Protocol: Document 11/26/17 16:00 DCW (Rec: 11/26/17 17:00 DCW [id number]) OP-PT Balance Assessment Standing Balance Static Standing Balance Ability Fair Dynamic Standing Balance Ability Poor Standing Balance Comments Pt requires Min Ax1 when standing without assistive device for 10 seconds Estrada Fall Scale Copyright Permission Estrada SHER, Estrada RM, Anna SJ. Development of a scale to identify the fall- prone patient. Can J Aging 1989;8;366-7. Elisabeth Dorado (2009). Preventing patient falls. (2nd ed). Phelps: Smalls. PT-OP-G Mobility & Gait Start: 11/26/17 16:53 Freq: Status: Active Protocol: Document 11/26/17 16:00 DCW (Rec: 11/26/17 17:00 DCW [id number]) OP Mobility Evaluation Transfers Sit to Stand Min Ax1 /c FWW Bed to Chair Transfers Min Ax1 /c FWW OP Gait Assessment Gait Gait Assistance Required: Minimum Assistance 1 Person Assist Distance (Feet) (feet) 80 Assistive Devices Assistive Device Front Wheeled Walker Gait Deviations General Gait Pattern Ataxic Decreased Stride Length Decreased Feet Clearance Wide Based Gait Factors Limiting Gait Function Factors Limiting Gait Function Abnormal Tonal Influences Decreased Sensation Decreased Strength Poor Balance Poor Safety Awareness PT-OP-M Strength Start: 11/26/17 16:53 Freq: Status: Active Protocol: Document 11/26/17 16:00 DCW (Rec: 11/26/17 17:00 DCW [id number]) Hip Strength Hip Manual Muscle Testing Right Flexion (L2) 4+ Good+ Abduction 4+ Good+ Adduction 5 Normal Left Flexion (L2) 4 Good Abduction 4+ Good+ Adduction 5 Normal Knee Strength Knee Manual Muscle Testing Right Flexion (S2) 4+ Good+ Extension (L3) 5 Normal Left Flexion (S2) 4+ Good+ Extension (L3) 5 Normal Ankle/Foot Strength Ankle and Foot Manual Muscle Testing Right Dorsiflexion (L4) 4+ Good+ Plantarflexion (S1) 3- Fair- Left Dorsiflexion (L4) 4+ Good+ Plantarflexion (S1) 3 Fair PT-OP-Q Treatments Start: 11/19/17 17:22 Freq: Status: Active Protocol: Document 11/26/17 16:00 DCW (Rec: 11/26/17 16:52 DCW [id number]) Cardio Equipment Upper Body Ergometer (UBE) Duration (Minutes) 5 RPM 60 Other Forward/Backward Therapeutic Exercises Supine Exercises 1 Supine Exercise Name SLR Side bilateral Gait Training Gait Activity 1 Device Used FWW Level of Assistance Mod Ax1 /c w/c follow Surface Level Distance/Duration 10'- 20' x5 Treatment Focus Knee extension/quad activation , activity tolerance Manual Therapy Treatment Soft Tissue Mobilization 1 Body Location Psoas Mobilization Type Strumming Sustained Pressure Manual Techniques 3 Type Piriformis manual stretching Body Position Supine 2 Type Hamstring manual stretching Body Position Supine 1 Type Psoas manual stretching Body Position Sidelying PT-OP-T Assessment and Plan Start: 11/19/17 17:22 Freq: Status: Active Protocol: Document 11/26/17 16:00 DCW (Rec: 11/26/17 16:52 DCW [id number]) Physical Therapy Assessment Rehab Potential Rehabilitation Potential Fair Impairments Impairments Activity Tolerance Balance Coordination Functional Activities Functional Mobility Gait Posture ROM Soft Tissue Mobility Strength Tone Transfers Goals Four Impairment Static Standing Balance Entertainment & Media Correspondent Goal (LTG) Pt to stand with supervision assistance for 5 seconds without assistive device LTG Duration 10 weeks Three Impairment Transfers Residential Goal (LTG) Pt to perform stand-pivot transfer CGA with FWW LTG Duration 10 weeks Two Impairment Gait Residential Goal (LTG) Pt to ambulate 100' SBA /c FWW LTG Duration 10 weeks One Impairment LE weakness Entertainment & Media Correspondent Goal (LTG) Ankle Plantarflexion to 3/5 bilaterally All remaining planes to 4/5 bilaterally LTG Duration 10 weeks Progress Towards Goals Progress Towards Goals Slow Progress due to Medical Issues Progress Comments Multiple Sclerosis Assessment Summary Assessment Patient unable to walk more that 10' at a time today, did not appear to have any of her normal knee buckling, it appeared more to be self- limiting today, where she would walk well for 4-5 steps, and then just say she needed to stop and sit. Physical Therapy Plan Frequency and Duration Frequency of Treatment 1x/Week Duration of Treatment 12 weeks Plan of Care Start Date 11/26/17 Plan of Care End Date 02/17/18 Therapeutic Interventions Therapeutic Interventions Aquatic Therapy Gait Training Home Exercise Program Joint Mobilizations Neuromuscular Re-education Patient/Caregiver Education Self-Care/Home Management Therapeutic Activities Therapeutic Exercises Next Visit Focus/Plan Next Visit Plan Gait training, Balance, Activity tolerance, strengthening
--- NOTE | 2017-11-26 17:07 | PT.OPPOC ---
Current Diagnoses Multiple sclerosis (11/26/17) Muscle weakness (generalized) (11/26/17) Ataxic gait (11/26/17) Unsteadiness on feet (11/26/17) Provider Visit Care Team Role Provider Type Dariana Stratton DO Attending Provider Physician Family Provider Primary Care Provider Specialty: Family Practice Address: [address] [place] [address], [id number] Email: [email or web address] Plan Of Care PT-OP-T Assessment and Plan Start: 11/19/17 17:22 Freq: Status: Active Protocol: Document 11/26/17 16:00 DCW (Rec: 11/26/17 16:52 DCW [id number]) Physical Therapy Assessment Rehab Potential Rehabilitation Potential Fair Impairments Impairments Activity Tolerance Balance Coordination Functional Activities Functional Mobility Gait Posture ROM Soft Tissue Mobility Strength Tone Transfers Goals Four Impairment Static Standing Balance Land Resource Specialist Goal (LTG) Pt to stand with supervision assistance for 5 seconds without assistive device LTG Duration 10 weeks Three Impairment Transfers Land Resource Specialist Goal (LTG) Pt to perform stand-pivot transfer CGA with FWW LTG Duration 10 weeks Two Impairment Gait Usp Goal (LTG) Pt to ambulate 100' SBA /c FWW LTG Duration 10 weeks One Impairment LE weakness Land Resource Specialist Goal (LTG) Ankle Plantarflexion to 3/5 bilaterally All remaining planes to 4/5 bilaterally LTG Duration 10 weeks Progress Towards Goals Progress Towards Goals Slow Progress due to Medical Issues Progress Comments Multiple Sclerosis Assessment Summary Assessment Patient unable to walk more that 10' at a time today, did not appear to have any of her normal knee buckling, it appeared more to be self- limiting today, where she would walk well for 4-5 steps, and then just say she needed to stop and sit. Physical Therapy Plan Frequency and Duration Frequency of Treatment 1x/Week Duration of Treatment 12 weeks Plan of Care Start Date 11/26/17 Plan of Care End Date 02/17/18 Therapeutic Interventions Therapeutic Interventions Aquatic Therapy Gait Training Home Exercise Program Joint Mobilizations Neuromuscular Re-education Patient/Caregiver Education Self-Care/Home Management Therapeutic Activities Therapeutic Exercises Next Visit Focus/Plan Next Visit Plan Gait training, Balance, Activity tolerance, strengthening Plan of Care Dates Plan of Care Start Date 11/26/17 Plan of Care End Date 02/17/18 Please Sign and Return: I have reviewed this Plan of Care and certify that the skilled therapy services above are required to meet the patient???s needs. Physician Signature Date Printed Name and Credentials
--- NOTE | 2017-12-10 16:46 | PT.OTN ---
Current Diagnoses Multiple sclerosis (12/10/17) Muscle weakness (generalized) (12/10/17) Ataxic gait (12/10/17) Unsteadiness on feet (12/10/17) Physical Therapy Treatment Note PT-OP-A Visit Information Start: 11/19/17 17:22 Freq: Status: Active Protocol: Document 12/10/17 16:00 DCW (Rec: 12/10/17 16:46 DCW [id number]) Out-Patient Physical Therapy Visit Information Visit Information Visit Type Treatment Note Visit Start Time 16:00 Visit Stop Time 16:45 Total Visit Minutes 45 Visit Number 58 Number of SEATING CAPTAIN Visits 0 Evaluation Information Evaluation Date 02/06/16 PT-OP-B Current Condition Start: 11/26/17 16:53 Freq: Status: Active Protocol: Document 11/26/17 16:00 DCW (Rec: 11/26/17 17:00 DCW [id number]) Current Condition History of Current Condition History of Current Condition See Therapy Source for full patient history Treatment Goals Patient/Caregiver Goals Decrease burden of care Prior Functional Status Baseline Function- ADL's Needs Assist Baseline Function- Mobility Needs Assist Current Functional Impairments (Reported) Functional Limitations- Mobility/Gait Pt ambulates 80' CGA/Min Ax1 / c FWW Pt transfers stand-pivot Min Ax1 for balance and stability PT-OP-C Subjective Start: 11/19/17 17:22 Freq: Status: Active Protocol: Document 12/10/17 16:00 DCW (Rec: 12/10/17 16:46 DCW [id number]) OP-PT Subjective Patient Comments Patient Comments Pt reports she is doing well today. PT-OP-Q Treatments Start: 11/19/17 17:22 Freq: Status: Active Protocol: Document 12/10/17 16:00 DCW (Rec: 12/10/17 16:46 DCW [id number]) Cardio Equipment Upper Body Ergometer (UBE) Duration (Minutes) 5 RPM 60 Height 3 Other Forward/Backward Gym Equipment Shuttle Recovery Unilateral Squats Resistance 25# Reps/Time 5 Bilateral Squats Resistance 75# Shuttle Recovery Platform Stable Reps/Time 5 Gait Training Gait Activity 1 Device Used FWW Level of Assistance Mod Ax1 /c w/c follow Surface Level Distance/Duration 65' x1, 20' x3 Treatment Focus Knee extension/quad activation , activity tolerance Neuro Re-Education Treatment Coordination Activities 1 Details Cone activities Equipment Cones Reps/Duration 10 Comments Using feet to knock over cones for coordination training/ neuromuscular re-education PT-OP-T Assessment and Plan Start: 11/19/17 17:22 Freq: Status: Active Protocol: Document 12/10/17 16:00 DCW (Rec: 12/10/17 16:46 DCW [id number]) Physical Therapy Assessment Rehab Potential Rehabilitation Potential Fair Impairments Impairments Activity Tolerance Balance Coordination Functional Activities Functional Mobility Gait Posture ROM Soft Tissue Mobility Strength Tone Transfers Goals Four Impairment Static Standing Balance Automatic Lump Making Machine Tender Goal (LTG) Pt to stand with supervision assistance for 5 seconds without assistive device LTG Duration 10 weeks Three Impairment Transfers Automatic Lump Making Machine Tender Goal (LTG) Pt to perform stand-pivot transfer CGA with FWW LTG Duration 10 weeks Two Impairment Gait Automatic Lump Making Machine Tender Goal (LTG) Pt to ambulate 100' SBA /c FWW LTG Duration 10 weeks One Impairment LE weakness Prison Goal (LTG) Ankle Plantarflexion to 3/5 bilaterally All remaining planes to 4/5 bilaterally LTG Duration 10 weeks Progress Towards Goals Progress Towards Goals Slow Progress due to Medical Issues Progress Comments Multiple Sclerosis Assessment Summary Assessment Greatly improved gait today, walked 65', good neuromuscular control knocking cones over. Physical Therapy Plan Frequency and Duration Frequency of Treatment 1x/Week Duration of Treatment 12 weeks Plan of Care Start Date 11/26/17 Plan of Care End Date 02/17/18 Therapeutic Interventions Therapeutic Interventions Aquatic Therapy Gait Training Home Exercise Program Joint Mobilizations Neuromuscular Re-education Patient/Caregiver Education Self-Care/Home Management Therapeutic Activities Therapeutic Exercises Next Visit Focus/Plan Next Visit Plan Gait training, Balance, Activity tolerance, strengthening
--- NOTE | 2017-12-17 16:48 | PT.OTN ---
Current Diagnoses Multiple sclerosis (12/17/17) Muscle weakness (generalized) (12/17/17) Ataxic gait (12/17/17) Unsteadiness on feet (12/17/17) Physical Therapy Treatment Note PT-OP-A Visit Information Start: 11/19/17 17:22 Freq: Status: Active Protocol: Document 12/17/17 16:05 DCW (Rec: 12/17/17 16:48 DCW [id number]) Out-Patient Physical Therapy Visit Information Visit Information Visit Type Treatment Note Visit Note Pt five minutes late Visit Start Time 16:05 Visit Stop Time 16:45 Total Visit Minutes 40 Visit Number 59 Number of SOW FARM TECHNICIAN Visits 0 Evaluation Information Evaluation Date 02/06/16 PT-OP-B Current Condition Start: 11/26/17 16:53 Freq: Status: Active Protocol: Document 11/26/17 16:00 DCW (Rec: 11/26/17 17:00 DCW [id number]) Current Condition History of Current Condition History of Current Condition See Therapy Source for full patient history Treatment Goals Patient/Caregiver Goals Decrease burden of care Prior Functional Status Baseline Function- ADL's Needs Assist Baseline Function- Mobility Needs Assist Current Functional Impairments (Reported) Functional Limitations- Mobility/Gait Pt ambulates 80' CGA/Min Ax1 / c FWW Pt transfers stand-pivot Min Ax1 for balance and stability PT-OP-C Subjective Start: 11/19/17 17:22 Freq: Status: Active Protocol: Document 12/17/17 16:05 DCW (Rec: 12/17/17 16:48 DCW [id number]) OP-PT Subjective Patient Comments Patient Comments Pt's sister reports she was able to enter and exit the van easier than normal today. PT-OP-Q Treatments Start: 11/19/17 17:22 Freq: Status: Active Protocol: Document 12/17/17 16:05 DCW (Rec: 12/17/17 16:48 DCW [id number]) Cardio Equipment Upper Body Ergometer (UBE) Duration (Minutes) 6 RPM 60 Height 3 Other Forward/Backward Gym Equipment Shuttle Recovery Unilateral Squats Resistance 25# Reps/Time 5 Bilateral Squats Resistance 75# Shuttle Recovery Platform Stable Reps/Time 5 Gait Training Gait Activity 1 Device Used FWW Level of Assistance Mod Ax1 /c w/c follow Surface Level Distance/Duration 65' x1, 20' x3 Treatment Focus Knee extension/quad activation , activity tolerance Neuro Re-Education Treatment Coordination Activities 1 Details Cone activities Equipment Cones Reps/Duration 10 Comments Using feet to knock over cones for coordination training/ neuromuscular re-education PT-OP-T Assessment and Plan Start: 11/19/17 17:22 Freq: Status: Active Protocol: Document 12/17/17 16:05 DCW (Rec: 12/17/17 16:48 DCW [id number]) Physical Therapy Assessment Rehab Potential Rehabilitation Potential Fair Impairments Impairments Activity Tolerance Balance Coordination Functional Activities Functional Mobility Gait Posture ROM Soft Tissue Mobility Strength Tone Transfers Goals Four Impairment Static Standing Balance Shelter Goal (LTG) Pt to stand with supervision assistance for 5 seconds without assistive device LTG Duration 10 weeks Three Impairment Transfers Shelter Goal (LTG) Pt to perform stand-pivot transfer CGA with FWW LTG Duration 10 weeks Two Impairment Gait Marketing Systems Manager Goal (LTG) Pt to ambulate 100' SBA /c FWW LTG Duration 10 weeks One Impairment LE weakness Marketing Systems Manager Goal (LTG) Ankle Plantarflexion to 3/5 bilaterally All remaining planes to 4/5 bilaterally LTG Duration 10 weeks Progress Towards Goals Progress Towards Goals Slow Progress due to Medical Issues Progress Comments Multiple Sclerosis Assessment Summary Assessment After initially walking very well from the waiting room to the E, pt suddenly ran out of steam, and struggled to walk further than 10' at a time. Additionally, pt multiple times just decided to stop and sit, no matter where she was or if there was a wheelchair behind her. Once, therapist was unable to stop her, and she sat on the edge of her wheelchair, and then slowly slid herself to the ground with PT assist. Physical Therapy Plan Frequency and Duration Frequency of Treatment 1x/Week Duration of Treatment 12 weeks Plan of Care Start Date 11/26/17 Plan of Care End Date 02/17/18 Therapeutic Interventions Therapeutic Interventions Aquatic Therapy Gait Training Home Exercise Program Joint Mobilizations Neuromuscular Re-education Patient/Caregiver Education Self-Care/Home Management Therapeutic Activities Therapeutic Exercises Next Visit Focus/Plan Next Visit Plan Gait training, Balance, Activity tolerance, strengthening
--- NOTE | 2017-12-24 16:45 | PT.OTN ---
Current Diagnoses Multiple sclerosis (12/24/17) Muscle weakness (generalized) (12/24/17) Ataxic gait (12/24/17) Unsteadiness on feet (12/24/17) Physical Therapy Treatment Note PT-OP-A Visit Information Start: 11/19/17 17:22 Freq: Status: Active Protocol: Document 12/24/17 16:05 DCW (Rec: 12/24/17 16:45 DCW [id number]) Out-Patient Physical Therapy Visit Information Visit Information Visit Type Treatment Note Visit Note Pt five minutes late Visit Start Time 16:05 Visit Stop Time 16:45 Total Visit Minutes 40 Visit Number 60 Number of COMMERCIAL INTELLIGENCE MANAGER Visits 0 Evaluation Information Evaluation Date 02/06/16 PT-OP-B Current Condition Start: 11/26/17 16:53 Freq: Status: Active Protocol: Document 11/26/17 16:00 DCW (Rec: 11/26/17 17:00 DCW [id number]) Current Condition History of Current Condition History of Current Condition See Therapy Source for full patient history Treatment Goals Patient/Caregiver Goals Decrease burden of care Prior Functional Status Baseline Function- ADL's Needs Assist Baseline Function- Mobility Needs Assist Current Functional Impairments (Reported) Functional Limitations- Mobility/Gait Pt ambulates 80' CGA/Min Ax1 / c FWW Pt transfers stand-pivot Min Ax1 for balance and stability PT-OP-C Subjective Start: 11/19/17 17:22 Freq: Status: Active Protocol: Document 12/24/17 16:05 DCW (Rec: 12/24/17 16:45 DCW [id number]) OP-PT Subjective Patient Comments Patient Comments Pt doing well today, no complaints. PT-OP-Q Treatments Start: 11/19/17 17:22 Freq: Status: Active Protocol: Document 12/24/17 16:05 DCW (Rec: 12/24/17 16:45 DCW [id number]) Cardio Equipment Upper Body Ergometer (UBE) Duration (Minutes) 5 RPM 60 Height 3 Other Forward/Backward Gym Equipment Shuttle Recovery Unilateral Squats Resistance 25# Reps/Time 5 Bilateral Squats Resistance 62# Shuttle Recovery Platform Stable Reps/Time 5 Therapeutic Exercises Sitting Exercises 2 Sitting Exercise Name Hip abduction Side bilateral Resistance Lv 3 Equipment Used T-band 1 Sitting Exercise Name Hamstring Curls Side bilateral Resistance Lv 3 Equipment Used T-band Gait Training Gait Activity 1 Device Used FWW Level of Assistance Mod Ax1 /c w/c follow Surface Level Distance/Duration 65' x1, 10' x5 Treatment Focus Knee extension/quad activation , activity tolerance PT-OP-T Assessment and Plan Start: 11/19/17 17:22 Freq: Status: Active Protocol: Document 12/24/17 16:05 DCW (Rec: 12/24/17 16:45 DCW [id number]) Physical Therapy Assessment Rehab Potential Rehabilitation Potential Fair Impairments Impairments Activity Tolerance Balance Coordination Functional Activities Functional Mobility Gait Posture ROM Soft Tissue Mobility Strength Tone Transfers Goals Four Impairment Static Standing Balance Pewter Fabricator Goal (LTG) Pt to stand with supervision assistance for 5 seconds without assistive device LTG Duration 10 weeks Three Impairment Transfers Pewter Fabricator Goal (LTG) Pt to perform stand-pivot transfer CGA with FWW LTG Duration 10 weeks Two Impairment Gait Prison Goal (LTG) Pt to ambulate 100' SBA /c FWW LTG Duration 10 weeks One Impairment LE weakness Pewter Fabricator Goal (LTG) Ankle Plantarflexion to 3/5 bilaterally All remaining planes to 4/5 bilaterally LTG Duration 10 weeks Progress Towards Goals Progress Towards Goals Slow Progress due to Medical Issues Progress Comments Multiple Sclerosis Assessment Summary Assessment Pt again walked better at the beginning of the session today , but then appeared to just lose most quad strength and struggled to walk more than 5- 10' at a time. Additionally, pt again would attempt to sit without warning, despite continued reminders Physical Therapy Plan Frequency and Duration Frequency of Treatment 1x/Week Duration of Treatment 12 weeks Plan of Care Start Date 11/26/17 Plan of Care End Date 02/17/18 Therapeutic Interventions Therapeutic Interventions Aquatic Therapy Gait Training Home Exercise Program Joint Mobilizations Neuromuscular Re-education Patient/Caregiver Education Self-Care/Home Management Therapeutic Activities Therapeutic Exercises Next Visit Focus/Plan Next Note Type Treatment Note Next Visit Plan Gait training, Balance, Activity tolerance, strengthening
--- NOTE | 2017-12-31 16:48 | PT.OTN ---
Current Diagnoses Multiple sclerosis (12/31/17) Muscle weakness (generalized) (12/31/17) Ataxic gait (12/31/17) Unsteadiness on feet (12/31/17) Physical Therapy Treatment Note PT-OP-A Visit Information Start: 11/19/17 17:22 Freq: Status: Active Protocol: Document 12/31/17 16:05 DCW (Rec: 12/31/17 16:46 DCW [id number]) Out-Patient Physical Therapy Visit Information Visit Information Visit Type Treatment Note Visit Note Arrived 5 minutes late Visit Start Time 16:05 Visit Stop Time 16:45 Total Visit Minutes 40 Visit Number 61 Number of RESIDENTIAL REMODELING SUBCONTRACTOR Visits 0 Evaluation Information Evaluation Date 02/06/16 PT-OP-B Current Condition Start: 11/26/17 16:53 Freq: Status: Active Protocol: Document 11/26/17 16:00 DCW (Rec: 11/26/17 17:00 DCW [id number]) Current Condition History of Current Condition History of Current Condition See Therapy Source for full patient history Treatment Goals Patient/Caregiver Goals Decrease burden of care Prior Functional Status Baseline Function- ADL's Needs Assist Baseline Function- Mobility Needs Assist Current Functional Impairments (Reported) Functional Limitations- Mobility/Gait Pt ambulates 80' CGA/Min Ax1 / c FWW Pt transfers stand-pivot Min Ax1 for balance and stability PT-OP-C Subjective Start: 11/19/17 17:22 Freq: Status: Active Protocol: Document 12/31/17 16:05 DCW (Rec: 12/31/17 16:46 DCW [id number]) OP-PT Subjective Patient Comments Patient Comments Pt feeling warm today. PT-OP-Q Treatments Start: 11/19/17 17:22 Freq: Status: Active Protocol: Document 12/31/17 16:05 DCW (Rec: 12/31/17 16:46 DCW [id number]) Cardio Equipment Upper Body Ergometer (UBE) Duration (Minutes) 5 RPM 60 Height 3 Other Forward/Backward Gym Equipment Shuttle Recovery Unilateral Squats Resistance 25# Reps/Time 5 Bilateral Squats Resistance 75# Shuttle Recovery Platform Stable Reps/Time 5 Therapeutic Exercises Sitting Exercises 1 Sitting Exercise Name Hamstring Curls Side bilateral Resistance Lv 3 Equipment Used T-band Gait Training Gait Activity 1 Device Used FWW Level of Assistance Mod Ax1 /c w/c follow Surface Level Distance/Duration 5'-10' x10 Treatment Focus Knee extension/quad activation , activity tolerance PT-OP-T Assessment and Plan Start: 11/19/17 17:22 Freq: Status: Active Protocol: Document 12/31/17 16:05 DCW (Rec: 12/31/17 16:46 DCW [id number]) Physical Therapy Assessment Rehab Potential Rehabilitation Potential Fair Impairments Impairments Activity Tolerance Balance Coordination Functional Activities Functional Mobility Gait Posture ROM Soft Tissue Mobility Strength Tone Transfers Goals Four Impairment Static Standing Balance Hand Cementer Goal (LTG) Pt to stand with supervision assistance for 5 seconds without assistive device LTG Duration 02/04/18 Three Impairment Transfers Intermediate Goal (LTG) Pt to perform stand-pivot transfer CGA with FWW LTG Duration 02/04/18 Two Impairment Gait Intermediate Goal (LTG) Pt to ambulate 100' SBA /c FWW LTG Duration 02/04/18 One Impairment LE weakness Intermediate Goal (LTG) Ankle Plantarflexion to 3/5 bilaterally All remaining planes to 4/5 bilaterally LTG Duration 02/04/18 Progress Towards Goals Progress Towards Goals Slow Progress due to Medical Issues Progress Comments Multiple Sclerosis Assessment Summary Assessment Today was pt's worst day for walking in a number of months. At no time was pt able to ambulate more than 10 feet without a break. May have been a result of increased temperature today. Physical Therapy Plan Frequency and Duration Frequency of Treatment 1x/Week Duration of Treatment 12 weeks Plan of Care Start Date 11/26/17 Plan of Care End Date 02/17/18 Therapeutic Interventions Therapeutic Interventions Aquatic Therapy Gait Training Home Exercise Program Joint Mobilizations Neuromuscular Re-education Patient/Caregiver Education Self-Care/Home Management Therapeutic Activities Therapeutic Exercises Next Visit Focus/Plan Next Note Type Treatment Note Next Visit Plan Gait training, Balance, Activity tolerance, strengthening
--- NOTE | 2018-01-07 16:46 | PT.OTN ---
Current Diagnoses Multiple sclerosis (01/07/18) Muscle weakness (generalized) (01/07/18) Ataxic gait (01/07/18) Unsteadiness on feet (01/07/18) Physical Therapy Treatment Note PT-OP-A Visit Information Start: 11/19/17 17:22 Freq: Status: Active Protocol: Document 01/07/18 16:05 DCW (Rec: 01/07/18 16:45 DCW [id number]) Out-Patient Physical Therapy Visit Information Visit Information Visit Type Treatment Note Visit Note Arrived 5 minutes after start of treatment time Visit Start Time 16:05 Visit Stop Time 16:45 Total Visit Minutes 40 Visit Number 62 Number of SQL DATABASE ADMINISTRATOR Visits 0 Evaluation Information Evaluation Date 02/06/16 PT-OP-B Current Condition Start: 11/26/17 16:53 Freq: Status: Active Protocol: Document 11/26/17 16:00 DCW (Rec: 11/26/17 17:00 DCW [id number]) Current Condition History of Current Condition History of Current Condition See Therapy Source for full patient history Treatment Goals Patient/Caregiver Goals Decrease burden of care Prior Functional Status Baseline Function- ADL's Needs Assist Baseline Function- Mobility Needs Assist Current Functional Impairments (Reported) Functional Limitations- Mobility/Gait Pt ambulates 80' CGA/Min Ax1 / c FWW Pt transfers stand-pivot Min Ax1 for balance and stability PT-OP-C Subjective Start: 11/19/17 17:22 Freq: Status: Active Protocol: Document 01/07/18 16:05 DCW (Rec: 01/07/18 16:45 DCW [id number]) OP-PT Subjective Patient Comments Patient Comments Pt reports she hopes that her walking is better today that it has been the last few weeks . PT-OP-D Balance Start: 11/26/17 16:53 Freq: Status: Active Protocol: Document 11/26/17 16:00 DCW (Rec: 11/26/17 17:00 DCW [id number]) OP-PT Balance Assessment Standing Balance Static Standing Balance Ability Fair Dynamic Standing Balance Ability Poor Standing Balance Comments Pt requires Min Ax1 when standing without assistive device for 10 seconds Dorado Fall Scale Copyright Permission Estrada SHER, Estrada RM, Anna SJ. Development of a scale to identify the fall- prone patient. Can J Aging 1989;8;366-7. Elisabeth Dorado (2009). Preventing patient falls. (2nd ed). [place]: [employer]. PT-OP-G Mobility & Gait Start: 11/26/17 16:53 Freq: Status: Active Protocol: Document 11/26/17 16:00 DCW (Rec: 11/26/17 17:00 DCW [id number]) OP Mobility Evaluation Transfers Sit to Stand Min Ax1 /c FWW Bed to Chair Transfers Min Ax1 /c FWW OP Gait Assessment Gait Gait Assistance Required: Minimum Assistance 1 Person Assist Distance (Feet) (feet) 80 Assistive Devices Assistive Device Front Wheeled Walker Gait Deviations General Gait Pattern Ataxic Decreased Stride Length Decreased Feet Clearance Wide Based Gait Factors Limiting Gait Function Factors Limiting Gait Function Abnormal Tonal Influences Decreased Sensation Decreased Strength Poor Balance Poor Safety Awareness PT-OP-M Strength Start: 11/26/17 16:53 Freq: Status: Active Protocol: Document 11/26/17 16:00 DCW (Rec: 11/26/17 17:00 DCW [id number]) Hip Strength Hip Manual Muscle Testing Right Flexion (L2) 4+ Good+ Abduction 4+ Good+ Adduction 5 Normal Left Flexion (L2) 4 Good Abduction 4+ Good+ Adduction 5 Normal Knee Strength Knee Manual Muscle Testing Right Flexion (S2) 4+ Good+ Extension (L3) 5 Normal Left Flexion (S2) 4+ Good+ Extension (L3) 5 Normal Ankle/Foot Strength Ankle and Foot Manual Muscle Testing Right Dorsiflexion (L4) 4+ Good+ Plantarflexion (S1) 3- Fair- Left Dorsiflexion (L4) 4+ Good+ Plantarflexion (S1) 3 Fair PT-OP-Q Treatments Start: 11/19/17 17:22 Freq: Status: Active Protocol: Document 01/07/18 16:05 DCW (Rec: 01/07/18 16:45 DCW [id number]) Cardio Equipment Upper Body Ergometer (UBE) Duration (Minutes) 6 RPM 60 Height 3 Other Forward/Backward Gym Equipment Shuttle Recovery Unilateral Squats Resistance 25# Reps/Time 5 Bilateral Squats Resistance 87# -> 75# Shuttle Recovery Platform Stable Reps/Time 5 Therapeutic Exercises Sitting Exercises 1 Sitting Exercise Name Hamstring Curls Side bilateral Resistance Lv 3 Equipment Used T-band Gait Training Gait Activity 1 Device Used FWW Level of Assistance Mod Ax1 /c w/c follow Surface Level Distance/Duration 65' x1, 35' x1, 20' x1 Treatment Focus Knee extension/quad activation , activity tolerance Neuro Re-Education Treatment Coordination Activities 1 Details Cone activities Equipment Cones Reps/Duration 10 Comments Using feet to knock over cones for coordination training/ neuromuscular re-education PT-OP-T Assessment and Plan Start: 11/19/17 17:22 Freq: Status: Active Protocol: Document 01/07/18 16:05 DCW (Rec: 01/07/18 16:45 DCW [id number]) Physical Therapy Assessment Rehab Potential Rehabilitation Potential Fair Impairments Impairments Activity Tolerance Balance Coordination Functional Activities Functional Mobility Gait Posture ROM Soft Tissue Mobility Strength Tone Transfers Goals Four Impairment Static Standing Balance Unix Architect Goal (LTG) Pt to stand with supervision assistance for 5 seconds without assistive device LTG Duration 02/04/18 Three Impairment Transfers Intermediate Goal (LTG) Pt to perform stand-pivot transfer CGA with FWW LTG Duration 02/04/18 Two Impairment Gait Intermediate Goal (LTG) Pt to ambulate 100' SBA /c FWW LTG Duration 02/04/18 One Impairment LE weakness Unix Architect Goal (LTG) Ankle Plantarflexion to 3/5 bilaterally All remaining planes to 4/5 bilaterally LTG Duration 02/04/18 Progress Towards Goals Progress Towards Goals Slow Progress due to Medical Issues Progress Comments Multiple Sclerosis Assessment Summary Assessment Pt's walking today was a very large improvement over her last few weeks. Pt able to walk back all the was to the E from the waiting room with no stopping. Physical Therapy Plan Frequency and Duration Frequency of Treatment 1x/Week Duration of Treatment 12 weeks Plan of Care Start Date 11/26/17 Plan of Care End Date 02/17/18 Therapeutic Interventions Therapeutic Interventions Aquatic Therapy Gait Training Home Exercise Program Joint Mobilizations Neuromuscular Re-education Patient/Caregiver Education Self-Care/Home Management Therapeutic Activities Therapeutic Exercises Next Visit Focus/Plan Next Note Type Treatment Note Next Visit Plan Gait training, Balance, Activity tolerance, strengthening
--- NOTE | 2018-01-14 16:46 | PT.OTN ---
Current Diagnoses Multiple sclerosis (01/14/18) Muscle weakness (generalized) (01/14/18) Ataxic gait (01/14/18) Unsteadiness on feet (01/14/18) Physical Therapy Treatment Note PT-OP-A Visit Information Start: 11/19/17 17:22 Freq: Status: Active Protocol: Document 01/14/18 16:00 DCW (Rec: 01/14/18 16:46 DCW [id number]) Out-Patient Physical Therapy Visit Information Visit Information Visit Type Treatment Note Visit Start Time 16:00 Visit Stop Time 16:45 Total Visit Minutes 45 Visit Number 63 Number of MARINE ENGINEER CPVEC Visits 0 Evaluation Information Evaluation Date 02/06/16 PT-OP-B Current Condition Start: 11/26/17 16:53 Freq: Status: Active Protocol: Document 11/26/17 16:00 DCW (Rec: 11/26/17 17:00 DCW [id number]) Current Condition History of Current Condition History of Current Condition See Therapy Source for full patient history Treatment Goals Patient/Caregiver Goals Decrease burden of care Prior Functional Status Baseline Function- ADL's Needs Assist Baseline Function- Mobility Needs Assist Current Functional Impairments (Reported) Functional Limitations- Mobility/Gait Pt ambulates 80' CGA/Min Ax1 / c FWW Pt transfers stand-pivot Min Ax1 for balance and stability PT-OP-C Subjective Start: 11/19/17 17:22 Freq: Status: Active Protocol: Document 01/14/18 16:00 DCW (Rec: 01/14/18 16:46 DCW [id number]) OP-PT Subjective Patient Comments Patient Comments Pt repoprts she is doing well today, despite the increased temperature. PT-OP-D Balance Start: 11/26/17 16:53 Freq: Status: Active Protocol: Document 11/26/17 16:00 DCW (Rec: 11/26/17 17:00 DCW [id number]) OP-PT Balance Assessment Standing Balance Static Standing Balance Ability Fair Dynamic Standing Balance Ability Poor Standing Balance Comments Pt requires Min Ax1 when standing without assistive device for 10 seconds Estrada Fall Scale Copyright Permission Estrada SHRE, Estrada RM, Anna SJ. Development of a scale to identify the fall- prone patient. Can J Aging 1989;8;366-7. Elisabeth Dorado (2009). Preventing patient falls. (2nd ed). [place]: Smalls. PT-OP-G Mobility & Gait Start: 11/26/17 16:53 Freq: Status: Active Protocol: Document 11/26/17 16:00 DCW (Rec: 11/26/17 17:00 DCW [id number]) OP Mobility Evaluation Transfers Sit to Stand Min Ax1 /c FWW Bed to Chair Transfers Min Ax1 /c FWW OP Gait Assessment Gait Gait Assistance Required: Minimum Assistance 1 Person Assist Distance (Feet) (feet) 80 Assistive Devices Assistive Device Front Wheeled Walker Gait Deviations General Gait Pattern Ataxic Decreased Stride Length Decreased Feet Clearance Wide Based Gait Factors Limiting Gait Function Factors Limiting Gait Function Abnormal Tonal Influences Decreased Sensation Decreased Strength Poor Balance Poor Safety Awareness PT-OP-M Strength Start: 11/26/17 16:53 Freq: Status: Active Protocol: Document 11/26/17 16:00 DCW (Rec: 11/26/17 17:00 DCW [id number]) Hip Strength Hip Manual Muscle Testing Right Flexion (L2) 4+ Good+ Abduction 4+ Good+ Adduction 5 Normal Left Flexion (L2) 4 Good Abduction 4+ Good+ Adduction 5 Normal Knee Strength Knee Manual Muscle Testing Right Flexion (S2) 4+ Good+ Extension (L3) 5 Normal Left Flexion (S2) 4+ Good+ Extension (L3) 5 Normal Ankle/Foot Strength Ankle and Foot Manual Muscle Testing Right Dorsiflexion (L4) 4+ Good+ Plantarflexion (S1) 3- Fair- Left Dorsiflexion (L4) 4+ Good+ Plantarflexion (S1) 3 Fair PT-OP-Q Treatments Start: 11/19/17 17:22 Freq: Status: Active Protocol: Document 01/14/18 16:00 DCW (Rec: 01/14/18 16:46 DCW [id number]) Cardio Equipment Upper Body Ergometer (UBE) Duration (Minutes) 6 RPM 60 Height 3 Other Forward/Backward Gym Equipment Shuttle Recovery Unilateral Squats Resistance 25# Reps/Time 5 Bilateral Squats Resistance 75# Shuttle Recovery Platform Stable Reps/Time 5 Therapeutic Exercises Sitting Exercises 2 Sitting Exercise Name Hip abduction Side bilateral Resistance Lv 3 Equipment Used T-band 1 Sitting Exercise Name Hamstring Curls Side bilateral Resistance Lv 3 Equipment Used T-band Gait Training Gait Activity 1 Device Used FWW Level of Assistance Mod Ax1 /c w/c follow Surface Level Distance/Duration 65' x1, 30' x1, 15' x1 Treatment Focus Knee extension/quad activation , activity tolerance PT-OP-T Assessment and Plan Start: 11/19/17 17:22 Freq: Status: Active Protocol: Document 01/14/18 16:00 DCW (Rec: 01/14/18 16:46 DCW [id number]) Physical Therapy Assessment Rehab Potential Rehabilitation Potential Fair Impairments Impairments Activity Tolerance Balance Coordination Functional Activities Functional Mobility Gait Posture ROM Soft Tissue Mobility Strength Tone Transfers Goals Four Impairment Static Standing Balance Skilled Nursing Goal (LTG) Pt to stand with supervision assistance for 5 seconds without assistive device LTG Duration 02/04/18 Three Impairment Transfers Skilled Nursing Goal (LTG) Pt to perform stand-pivot transfer CGA with FWW LTG Duration 02/04/18 Two Impairment Gait Home Health Assistant Goal (LTG) Pt to ambulate 100' SBA /c FWW LTG Duration 02/04/18 One Impairment LE weakness Skilled Nursing Goal (LTG) Ankle Plantar flexion to 3/5 bilaterally All remaining planes to 4/5 bilaterally LTG Duration 02/04/18 Progress Towards Goals Progress Towards Goals Slow Progress due to Medical Issues Progress Comments Multiple Sclerosis Assessment Summary Assessment Pt did well today, especially considering the heat outside. Physical Therapy Plan Frequency and Duration Frequency of Treatment 1x/Week Duration of Treatment 12 weeks Plan of Care Start Date 11/26/17 Plan of Care End Date 02/17/18 Therapeutic Interventions Therapeutic Interventions Aquatic Therapy Gait Training Home Exercise Program Joint Mobilizations Neuromuscular Re-education Patient/Caregiver Education Self-Care/Home Management Therapeutic Activities Therapeutic Exercises Next Visit Focus/Plan Next Note Type Treatment Note Next Visit Plan Gait training, Balance, Activity tolerance, strengthening
--- NOTE | 2018-02-04 16:54 | PT.OTN ---
Current Diagnoses Multiple sclerosis (02/04/18) Muscle weakness (generalized) (02/04/18) Ataxic gait (02/04/18) Unsteadiness on feet (02/04/18) Physical Therapy Treatment Note PT-OP-A Visit Information Start: 11/19/17 17:22 Freq: Status: Active Protocol: Document 02/04/18 16:00 DCW (Rec: 02/04/18 16:53 DCW [id number]) Out-Patient Physical Therapy Visit Information Visit Information Visit Type Treatment Note Visit Start Time 16:00 Visit Stop Time 16:45 Total Visit Minutes 45 Visit Number 64 Number of SENIOR BRAND MANAGER Visits 0 Evaluation Information Evaluation Date 02/06/16 PT-OP-B Current Condition Start: 11/26/17 16:53 Freq: Status: Active Protocol: Document 11/26/17 16:00 DCW (Rec: 11/26/17 17:00 DCW [id number]) Current Condition History of Current Condition History of Current Condition See Therapy Source for full patient history Treatment Goals Patient/Caregiver Goals Decrease burden of care Prior Functional Status Baseline Function- ADL's Needs Assist Baseline Function- Mobility Needs Assist Current Functional Impairments (Reported) Functional Limitations- Mobility/Gait Pt ambulates 80' CGA/Min Ax1 / c FWW Pt transfers stand-pivot Min Ax1 for balance and stability PT-OP-C Subjective Start: 11/19/17 17:22 Freq: Status: Active Protocol: Document 02/04/18 16:00 DCW (Rec: 02/04/18 16:53 DCW [id number]) OP-PT Subjective Patient Comments Patient Comments Pt notes she is doing well today PT-OP-D Balance Start: 11/26/17 16:53 Freq: Status: Active Protocol: Document 11/26/17 16:00 DCW (Rec: 11/26/17 17:00 DCW [id number]) OP-PT Balance Assessment Standing Balance Static Standing Balance Ability Fair Dynamic Standing Balance Ability Poor Standing Balance Comments Pt requires Min Ax1 when standing without assistive device for 10 seconds Estrada Fall Scale Copyright Permission Estrada SHER, Estrada RM, Anna SJ. Development of a scale to identify the fall- prone patient. Can J Aging 1989;8;366-7. Elisabeth Dorado (2009). Preventing patient falls. (2nd ed). [place]: Smalls. PT-OP-G Mobility & Gait Start: 11/26/17 16:53 Freq: Status: Active Protocol: Document 11/26/17 16:00 DCW (Rec: 11/26/17 17:00 [facility] [id number]) OP Mobility Evaluation Transfers Sit to Stand Min Ax1 /c FWW Bed to Chair Transfers Min Ax1 /c FWW OP Gait Assessment Gait Gait Assistance Required: Minimum Assistance 1 Person Assist Distance (Feet) (feet) 80 Assistive Devices Assistive Device Front Wheeled Walker Gait Deviations General Gait Pattern Ataxic Decreased Stride Length Decreased Feet Clearance Wide Based Gait Factors Limiting Gait Function Factors Limiting Gait Function Abnormal Tonal Influences Decreased Sensation Decreased Strength Poor Balance Poor Safety Awareness PT-OP-M Strength Start: 11/26/17 16:53 Freq: Status: Active Protocol: Document 11/26/17 16:00 DCW (Rec: 11/26/17 17:00 [facility] [id number]) Hip Strength Hip Manual Muscle Testing Right Flexion (L2) 4+ Good+ Abduction 4+ Good+ Adduction 5 Normal Left Flexion (L2) 4 Good Abduction 4+ Good+ Adduction 5 Normal Knee Strength Knee Manual Muscle Testing Right Flexion (S2) 4+ Good+ Extension (L3) 5 Normal Left Flexion (S2) 4+ Good+ Extension (L3) 5 Normal Ankle/Foot Strength Ankle and Foot Manual Muscle Testing Right Dorsiflexion (L4) 4+ Good+ Plantarflexion (S1) 3- Fair- Left Dorsiflexion (L4) 4+ Good+ Plantarflexion (S1) 3 Fair PT-OP-Q Treatments Start: 11/19/17 17:22 Freq: Status: Active Protocol: Document 02/04/18 16:00 DCW (Rec: 02/04/18 16:53 ILW [id number]) Cardio Equipment Upper Body Ergometer (UBE) Duration (Minutes) 6 RPM 60 Height 3 Other Forward/Backward Gym Equipment Shuttle Recovery Unilateral Squats Resistance 25# Reps/Time 5 Bilateral Squats Resistance 75# Shuttle Recovery Platform Stable Reps/Time 5 Therapeutic Exercises Sitting Exercises 3 Sitting Exercise Name LAQ Resistance 5# Equipment Used Ankle weights 2 Sitting Exercise Name Hip abduction Side bilateral Resistance Lv 3 Equipment Used T-band 1 Sitting Exercise Name Hamstring Curls Side bilateral Resistance Lv 3 Equipment Used T-band Gait Training Gait Activity 1 Device Used FWW Level of Assistance Mod Ax1 /c w/c follow Surface Level Distance/Duration 50' x1, 25' x2, 15' x1 Treatment Focus Knee extension/quad activation , activity tolerance PT-OP-T Assessment and Plan Start: 11/19/17 17:22 Freq: Status: Active Protocol: Document 02/04/18 16:00 DCW (Rec: 02/04/18 16:53 DCW [id number]) Physical Therapy Assessment Rehab Potential Rehabilitation Potential Fair Impairments Impairments Activity Tolerance Balance Coordination Functional Activities Functional Mobility Gait Posture ROM Soft Tissue Mobility Strength Tone Transfers Goals Four Impairment Static Standing Balance Cook Helper Goal (LTG) Pt to stand with supervision assistance for 5 seconds without assistive device LTG Duration 02/04/18 Three Impairment Transfers Retirement Goal (LTG) Pt to perform stand-pivot transfer CGA with FWW LTG Duration 02/04/18 Two Impairment Gait Cook Helper Goal (LTG) Pt to ambulate 100' SBA /c FWW LTG Duration 02/04/18 One Impairment LE weakness Cook Helper Goal (LTG) Ankle Plantarflexion to 3/5 bilaterally All remaining planes to 4/5 bilaterally LTG Duration 02/04/18 Progress Towards Goals Progress Towards Goals Slow Progress due to Medical Issues Progress Comments Multiple Sclerosis Assessment Summary Assessment Pt repeatedly attempted to sit down with no warning, and occasionally without a chair behind her, however with constant verbal cues, was doing better expressing when she needed to sit by the end of her session. Physical Therapy Plan Frequency and Duration Frequency of Treatment 1x/Week Duration of Treatment 12 weeks Plan of Care Start Date 11/26/17 Plan of Care End Date 02/17/18 Therapeutic Interventions Therapeutic Interventions Aquatic Therapy Gait Training Home Exercise Program Joint Mobilizations Neuromuscular Re-education Patient/Caregiver Education Self-Care/Home Management Therapeutic Activities Therapeutic Exercises Next Visit Focus/Plan Next Note Type Treatment Note Next Visit Plan Gait training, Balance, Activity tolerance, strengthening
--- NOTE | 2018-02-11 16:48 | PT.OTN ---
Current Diagnoses Multiple sclerosis (02/11/18) Muscle weakness (generalized) (02/11/18) Ataxic gait (02/11/18) Unsteadiness on feet (02/11/18) Physical Therapy Treatment Note PT-OP-A Visit Information Start: 11/19/17 17:22 Freq: Status: Active Protocol: Document 02/11/18 16:00 DCW (Rec: 02/11/18 16:48 DCW [id number]) Out-Patient Physical Therapy Visit Information Visit Information Visit Type Progress Note Visit Note Arrived 5 minutes late Visit Start Time 16:05 Visit Stop Time 16:45 Total Visit Minutes 40 Visit Number 65 Number of APPEALS REPRESENTATIVE Visits 0 Evaluation Information Evaluation Date 02/06/16 PT-OP-B Current Condition Start: 11/26/17 16:53 Freq: Status: Active Protocol: Document 02/11/18 16:00 DCW (Rec: 02/11/18 16:19 DCW [id number]) Current Condition History of Current Condition History of Current Condition See Therapy Source for full patient history Treatment Goals Patient/Caregiver Goals Decrease burden of care Prior Functional Status Baseline Function- ADL's Needs Assist Baseline Function- Mobility Needs Assist Current Functional Impairments (Reported) Functional Limitations- Mobility/Gait Pt ambulates 80' CGA/Min Ax1 / c FWW Pt transfers stand-pivot Min Ax1 for balance and stability PT-OP-C Subjective Start: 11/19/17 17:22 Freq: Status: Active Protocol: Document 02/11/18 16:00 DCW (Rec: 02/11/18 16:48 DCW [id number]) OP-PT Subjective Patient Comments Patient Comments I wish there were blue skies, even though that would mean it would probably be hotter. PT-OP-D Balance Start: 11/26/17 16:53 Freq: Status: Active Protocol: Document 02/11/18 16:00 DCW (Rec: 02/11/18 16:19 DCW [id number]) OP-PT Balance Assessment Standing Balance Static Standing Balance Ability Fair Dynamic Standing Balance Ability Poor Standing Balance Comments Pt requires Min Ax1 when standing without assistive device for 10 seconds Estrada Fall Scale Copyright Permission Estrada SHER, Estrada RM, Anna SJ. Development of a scale to identify the fall- prone patient. Can J Aging 1989;8;366-7. Elisabeth Dorado (2009). Preventing patient falls. (2nd ed). [place]: [place]. PT-OP-G Mobility & Gait Start: 11/26/17 16:53 Freq: Status: Active Protocol: Document 02/11/18 16:00 DCW (Rec: 02/11/18 16:19 DCW [id number]) OP Mobility Evaluation Transfers Sit to Stand Min Ax1 /c FWW Bed to Chair Transfers Min Ax1 /c FWW OP Gait Assessment Gait Gait Assistance Required: Minimum Assistance 1 Person Assist Distance (Feet) (feet) 80 Assistive Devices Assistive Device Front Wheeled Walker Gait Deviations General Gait Pattern Ataxic Decreased Stride Length Decreased Feet Clearance Wide Based Gait Factors Limiting Gait Function Factors Limiting Gait Function Abnormal Tonal Influences Decreased Sensation Decreased Strength Poor Balance Poor Safety Awareness PT-OP-M Strength Start: 11/26/17 16:53 Freq: Status: Active Protocol: Document 02/11/18 16:00 DCW (Rec: 02/11/18 16:19 DCW [id number]) Hip Strength Hip Manual Muscle Testing Right Flexion (L2) 4 Good Abduction 4+ Good+ Adduction 5 Normal Left Flexion (L2) 4 Good Abduction 4+ Good+ Adduction 5 Normal Knee Strength Knee Manual Muscle Testing Right Flexion (S2) 4+ Good+ Extension (L3) 5 Normal Left Flexion (S2) 4+ Good+ Extension (L3) 5 Normal Ankle/Foot Strength Ankle and Foot Manual Muscle Testing Right Dorsiflexion (L4) 4+ Good+ Plantarflexion (S1) 3- Fair- Left Dorsiflexion (L4) 4+ Good+ Plantarflexion (S1) 3 Fair PT-OP-Q Treatments Start: 11/19/17 17:22 Freq: Status: Active Protocol: Document 02/11/18 16:00 DCW (Rec: 02/11/18 16:48 DCW [id number]) Cardio Equipment Upper Body Ergometer (UBE) Duration (Minutes) 6 RPM 60 Height 3 Other Forward/Backward Gym Equipment Shuttle Recovery Unilateral Squats Resistance 25# Reps/Time 5 Bilateral Squats Resistance 75# Shuttle Recovery Platform Stable Reps/Time 5 Therapeutic Activity Therapeutic Activity 1 Name Sit<->Stand Reps/Minutes x10 Comments verbal cues for hand placement Gait Training Gait Activity 1 Device Used FWW Level of Assistance Mod Ax1 /c w/c follow Surface Level Distance/Duration 60' x1, 35' x1, 25' x2 Treatment Focus Knee extension/quad activation , activity tolerance PT-OP-T Assessment and Plan Start: 11/19/17 17:22 Freq: Status: Active Protocol: Document 02/11/18 16:00 DCW (Rec: 02/11/18 16:48 DCW [id number]) Physical Therapy Assessment Rehab Potential Rehabilitation Potential Fair Impairments Impairments Activity Tolerance Balance Coordination Functional Activities Functional Mobility Gait Posture ROM Soft Tissue Mobility Strength Tone Transfers Goals Four Impairment Static Standing Balance Assisted Goal (LTG) Pt to stand with supervision assistance for 5 seconds without assistive device LTG Duration 03/29/18 Three Impairment Transfers Wood Products Manufacturer Goal (LTG) Pt to perform stand-pivot transfer CGA with FWW LTG Duration 03/29/18 Two Impairment Gait Assisted Goal (LTG) Pt to ambulate 100' SBA /c FWW LTG Duration 03/29/18 One Impairment LE weakness Assisted Goal (LTG) Ankle Plantarflexion to 3/5 bilaterally All remaining planes to 4/5 bilaterally LTG Duration 03/29/18 Progress Towards Goals Progress Towards Goals Slow Progress due to Medical Issues Progress Comments Multiple Sclerosis Assessment Summary Assessment Pt has progress back to near- eval levels following a decline in function over December. Skilled therapy should continue to help improve or maintain current function, however with the progressive nature of MS, rehab potential is guarded Physical Therapy Plan Frequency and Duration Frequency of Treatment 1x/Week Duration of Treatment 12 weeks Plan of Care Start Date 02/11/18 Plan of Care End Date 05/06/18 Therapeutic Interventions Therapeutic Interventions Aquatic Therapy Gait Training Home Exercise Program Joint Mobilizations Neuromuscular Re-education Patient/Caregiver Education Self-Care/Home Management Therapeutic Activities Therapeutic Exercises Next Visit Focus/Plan Next Note Type Treatment Note Next Visit Plan Gait training, Balance, Activity tolerance, strengthening
--- NOTE | 2018-02-11 16:50 | PT.OPPOC ---
Current Diagnoses Multiple sclerosis (02/11/18) Muscle weakness (generalized) (02/11/18) Ataxic gait (02/11/18) Unsteadiness on feet (02/11/18) Provider Visit Care Team Role Provider Type Dariana Stratton DO Attending Provider Physician Family Provider Primary Care Provider Specialty: Family Practice Address: [address] [place] [address], [id number] Email: [email or web address] Plan Of Care PT-OP-T Assessment and Plan Start: 11/19/17 17:22 Freq: Status: Active Protocol: Document 02/11/18 16:00 DCW (Rec: 02/11/18 16:48 DCW [id number]) Physical Therapy Assessment Rehab Potential Rehabilitation Potential Fair Impairments Impairments Activity Tolerance Balance Coordination Functional Activities Functional Mobility Gait Posture ROM Soft Tissue Mobility Strength Tone Transfers Goals Four Impairment Static Standing Balance Automation Machine Builder Goal (LTG) Pt to stand with supervision assistance for 5 seconds without assistive device LTG Duration 03/29/18 Three Impairment Transfers Detention Goal (LTG) Pt to perform stand-pivot transfer CGA with FWW LTG Duration 03/29/18 Two Impairment Gait Automation Machine Builder Goal (LTG) Pt to ambulate 100' SBA /c FWW LTG Duration 03/29/18 One Impairment LE weakness Detention Goal (LTG) Ankle Plantarflexion to 3/5 bilaterally All remaining planes to 4/5 bilaterally LTG Duration 03/29/18 Progress Towards Goals Progress Towards Goals Slow Progress due to Medical Issues Progress Comments Multiple Sclerosis Assessment Summary Assessment Pt has progress back to near- eval levels following a decline in function over December. Skilled therapy should continue to help improve or maintain current function, however with the progressive nature of MS, rehab potential is guarded. Physical Therapy Plan Frequency and Duration Frequency of Treatment 1x/Week Duration of Treatment 12 weeks Plan of Care Start Date 02/11/18 Plan of Care End Date 05/06/18 Therapeutic Interventions Therapeutic Interventions Aquatic Therapy Gait Training Home Exercise Program Joint Mobilizations Neuromuscular Re-education Patient/Caregiver Education Self-Care/Home Management Therapeutic Activities Therapeutic Exercises Next Visit Focus/Plan Next Note Type Treatment Note Next Visit Plan Gait training, Balance, Activity tolerance, strengthening Plan of Care Dates Plan of Care Start Date 02/11/18 Plan of Care End Date 05/06/18 Please Sign and Return: I have reviewed this Plan of Care and certify that the skilled therapy services above are required to meet the patient?s needs. Physician Signature Date Printed Name and Credentials Clinical Instructor Signature Printed Name and Credentials
--- NOTE | 2018-02-18 16:44 | PT.OTN ---
Current Diagnoses Multiple sclerosis (02/18/18) Muscle weakness (generalized) (02/18/18) Ataxic gait (02/18/18) Unsteadiness on feet (02/18/18) Physical Therapy Treatment Note PT-OP-A Visit Information Start: 11/19/17 17:22 Freq: Status: Active Protocol: Document 02/18/18 16:00 DCW (Rec: 02/18/18 16:42 DCW [id number]) Out-Patient Physical Therapy Visit Information Visit Information Visit Type Treatment Note Visit Start Time 16:00 Visit Stop Time 16:45 Total Visit Minutes 45 Visit Number 66 Number of ROUTE JUMPER Visits 0 Evaluation Information Evaluation Date 02/06/16 PT-OP-B Current Condition Start: 11/26/17 16:53 Freq: Status: Active Protocol: Document 02/11/18 16:00 DCW (Rec: 02/11/18 16:19 DCW [id number]) Current Condition History of Current Condition History of Current Condition See Therapy Source for full patient history Treatment Goals Patient/Caregiver Goals Decrease burden of care Prior Functional Status Baseline Function- ADL's Needs Assist Baseline Function- Mobility Needs Assist Current Functional Impairments (Reported) Functional Limitations- Mobility/Gait Pt ambulates 80' CGA/Min Ax1 / c FWW Pt transfers stand-pivot Min Ax1 for balance and stability PT-OP-C Subjective Start: 11/19/17 17:22 Freq: Status: Active Protocol: Document 02/18/18 16:00 DCW (Rec: 02/18/18 16:42 DCW [id number]) OP-PT Subjective Patient Comments Patient Comments Pt struggling today with the increased heat. PT-OP-D Balance Start: 11/26/17 16:53 Freq: Status: Active Protocol: Document 02/11/18 16:00 DCW (Rec: 02/11/18 16:19 DCW [id number]) OP-PT Balance Assessment Standing Balance Static Standing Balance Ability Fair Dynamic Standing Balance Ability Poor Standing Balance Comments Pt requires Min Ax1 when standing without assistive device for 10 seconds Estrada Fall Scale Copyright Permission Estrada SHER, Estrada RM, Anna SJ. Development of a scale to identify the fall- prone patient. Can J Aging 1989;8;366-7. Elisabeth Dorado (2009). Preventing patient falls. (2nd ed). [place]: [place]. PT-OP-G Mobility & Gait Start: 11/26/17 16:53 Freq: Status: Active Protocol: Document 02/11/18 16:00 DCW (Rec: 02/11/18 16:19 DCW [id number]) OP Mobility Evaluation Transfers Sit to Stand Min Ax1 /c FWW Bed to Chair Transfers Min Ax1 /c FWW OP Gait Assessment Gait Gait Assistance Required: Minimum Assistance 1 Person Assist Distance (Feet) (feet) 80 Assistive Devices Assistive Device Front Wheeled Walker Gait Deviations General Gait Pattern Ataxic Decreased Stride Length Decreased Feet Clearance Wide Based Gait Factors Limiting Gait Function Factors Limiting Gait Function Abnormal Tonal Influences Decreased Sensation Decreased Strength Poor Balance Poor Safety Awareness PT-OP-M Strength Start: 11/26/17 16:53 Freq: Status: Active Protocol: Document 02/11/18 16:00 DCW (Rec: 02/11/18 16:19 DCW [id number]) Hip Strength Hip Manual Muscle Testing Right Flexion (L2) 4 Good Abduction 4+ Good+ Adduction 5 Normal Left Flexion (L2) 4 Good Abduction 4+ Good+ Adduction 5 Normal Knee Strength Knee Manual Muscle Testing Right Flexion (S2) 4+ Good+ Extension (L3) 5 Normal Left Flexion (S2) 4+ Good+ Extension (L3) 5 Normal Ankle/Foot Strength Ankle and Foot Manual Muscle Testing Right Dorsiflexion (L4) 4+ Good+ Plantarflexion (S1) 3- Fair- Left Dorsiflexion (L4) 4+ Good+ Plantarflexion (S1) 3 Fair PT-OP-Q Treatments Start: 11/19/17 17:22 Freq: Status: Active Protocol: Document 02/18/18 16:00 DCW (Rec: 02/18/18 16:42 DCW [id number]) Cardio Equipment Upper Body Ergometer (UBE) Duration (Minutes) 6 RPM 60 Height 3 Other Forward/Backward Gym Equipment Shuttle Recovery Unilateral Squats Resistance 25# Reps/Time 5 Bilateral Squats Resistance 75# Shuttle Recovery Platform Stable Reps/Time 5 Gait Training Gait Activity 1 Device Used FWW Level of Assistance Mod Ax1 /c w/c follow Surface Level Distance/Duration 20' x1, 10' x8 Treatment Focus Knee extension/quad activation , activity tolerance PT-OP-T Assessment and Plan Start: 11/19/17 17:22 Freq: Status: Active Protocol: Document 02/18/18 16:00 DCW (Rec: 02/18/18 16:42 DCW [id number]) Physical Therapy Assessment Rehab Potential Rehabilitation Potential Fair Impairments Impairments Activity Tolerance Balance Coordination Functional Activities Functional Mobility Gait Posture ROM Soft Tissue Mobility Strength Tone Transfers Goals Four Impairment Static Standing Balance Sub Prior Goal (LTG) Pt to stand with supervision assistance for 5 seconds without assistive device LTG Duration 03/29/18 Three Impairment Transfers Detention Goal (LTG) Pt to perform stand-pivot transfer CGA with FWW LTG Duration 03/29/18 Two Impairment Gait Sub Prior Goal (LTG) Pt to ambulate 100' SBA /c FWW LTG Duration 03/29/18 One Impairment LE weakness Detention Goal (LTG) Ankle Plantarflexion to 3/5 bilaterally All remaining planes to 4/5 bilaterally LTG Duration 03/29/18 Progress Towards Goals Progress Towards Goals Slow Progress due to Medical Issues Progress Comments Multiple Sclerosis Assessment Summary Assessment During today's session, pt had an incident when she tried to sit down when she was ~2 feet away from her chair, resulting in the therapist holding up the large majority of her weight until her chair could be placed under her. Therapist had a serious discussion with patient at the end of the session, stating that if she continued to sit without checking for a chair behind her or without letting anyone know she was sitting, she would likely need to be discharged from skilled PT before she caused an injury. Physical Therapy Plan Frequency and Duration Frequency of Treatment 1x/Week Duration of Treatment 12 weeks Plan of Care Start Date 02/11/18 Plan of Care End Date 05/06/18 Therapeutic Interventions Therapeutic Interventions Aquatic Therapy Gait Training Home Exercise Program Joint Mobilizations Neuromuscular Re-education Patient/Caregiver Education Self-Care/Home Management Therapeutic Activities Therapeutic Exercises Next Visit Focus/Plan Next Note Type Treatment Note Next Visit Plan Gait training, Balance, Activity tolerance, strengthening
--- NOTE | 2018-02-25 16:43 | PT.OTN ---
Current Diagnoses Multiple sclerosis (02/25/18) Muscle weakness (generalized) (02/25/18) Ataxic gait (02/25/18) Unsteadiness on feet (02/25/18) Physical Therapy Treatment Note PT-OP-A Visit Information Start: 11/19/17 17:22 Freq: Status: Active Protocol: Document 02/25/18 16:00 DCW (Rec: 02/25/18 16:43 DCW [id number]) Out-Patient Physical Therapy Visit Information Visit Information Visit Type Treatment Note Visit Start Time 16:00 Visit Stop Time 16:45 Total Visit Minutes 45 Visit Number 67 Number of SURGICAL INSTRUMENT REPAIR SPECIALIST Visits 0 Evaluation Information Evaluation Date 02/06/16 PT-OP-B Current Condition Start: 11/26/17 16:53 Freq: Status: Active Protocol: Document 02/11/18 16:00 DCW (Rec: 02/11/18 16:19 DCW [id number]) Current Condition History of Current Condition History of Current Condition See Therapy Source for full patient history Treatment Goals Patient/Caregiver Goals Decrease burden of care Prior Functional Status Baseline Function- ADL's Needs Assist Baseline Function- Mobility Needs Assist Current Functional Impairments (Reported) Functional Limitations- Mobility/Gait Pt ambulates 80' CGA/Min Ax1 / c FWW Pt transfers stand-pivot Min Ax1 for balance and stability PT-OP-C Subjective Start: 11/19/17 17:22 Freq: Status: Active Protocol: Document 02/25/18 16:00 DCW (Rec: 02/25/18 16:43 DCW [id number]) OP-PT Subjective Patient Comments Patient Comments Pt feels much better today than she did last week. PT-OP-D Balance Start: 11/26/17 16:53 Freq: Status: Active Protocol: Document 02/11/18 16:00 DCW (Rec: 02/11/18 16:19 DCW [id number]) OP-PT Balance Assessment Standing Balance Static Standing Balance Ability Fair Dynamic Standing Balance Ability Poor Standing Balance Comments Pt requires Min Ax1 when standing without assistive device for 10 seconds Estrada Fall Scale Copyright Permission Estrada SHER, Estrada RM, Anna SJ. Development of a scale to identify the fall- prone patient. Can J Aging 1989;8;366-7. Elisabeth Dorado (2009). Preventing patient falls. (2nd ed). [place]: [place]. PT-OP-G Mobility & Gait Start: 11/26/17 16:53 Freq: Status: Active Protocol: Document 02/11/18 16:00 DCW (Rec: 02/11/18 16:19 DCW [id number]) OP Mobility Evaluation Transfers Sit to Stand Min Ax1 /c FWW Bed to Chair Transfers Min Ax1 /c FWW OP Gait Assessment Gait Gait Assistance Required: Minimum Assistance 1 Person Assist Distance (Feet) (feet) 80 Assistive Devices Assistive Device Front Wheeled Walker Gait Deviations General Gait Pattern Ataxic Decreased Stride Length Decreased Feet Clearance Wide Based Gait Factors Limiting Gait Function Factors Limiting Gait Function Abnormal Tonal Influences Decreased Sensation Decreased Strength Poor Balance Poor Safety Awareness PT-OP-M Strength Start: 11/26/17 16:53 Freq: Status: Active Protocol: Document 02/11/18 16:00 DCW (Rec: 02/11/18 16:19 DCW [id number]) Hip Strength Hip Manual Muscle Testing Right Flexion (L2) 4 Good Abduction 4+ Good+ Adduction 5 Normal Left Flexion (L2) 4 Good Abduction 4+ Good+ Adduction 5 Normal Knee Strength Knee Manual Muscle Testing Right Flexion (S2) 4+ Good+ Extension (L3) 5 Normal Left Flexion (S2) 4+ Good+ Extension (L3) 5 Normal Ankle/Foot Strength Ankle and Foot Manual Muscle Testing Right Dorsiflexion (L4) 4+ Good+ Plantarflexion (S1) 3- Fair- Left Dorsiflexion (L4) 4+ Good+ Plantarflexion (S1) 3 Fair PT-OP-Q Treatments Start: 11/19/17 17:22 Freq: Status: Active Protocol: Document 02/25/18 16:00 DCW (Rec: 02/25/18 16:43 DCW [id number]) Cardio Equipment Upper Body Ergometer (UBE) Duration (Minutes) 6 RPM 60 Height 3 Other Forward/Backward Gym Equipment Shuttle Recovery Unilateral Squats Resistance 25# Shuttle Recovery Platform Stable Bilateral Squats Resistance 75# Shuttle Recovery Platform Stable Gait Training Gait Activity 1 Device Used FWW Level of Assistance Mod Ax1 /c w/c follow Surface Level Distance/Duration 60' x1, 20' x3 Treatment Focus Knee extension/quad activation , activity tolerance Neuro Re-Education Treatment Coordination Activities 1 Details Cone activities Equipment Cones Reps/Duration 10 Comments Using feet to knock over cones for coordination training/ neuromuscular re-education PT-OP-T Assessment and Plan Start: 11/19/17 17:22 Freq: Status: Active Protocol: Document 02/25/18 16:00 DCW (Rec: 02/25/18 16:43 DCW [id number]) Physical Therapy Assessment Rehab Potential Rehabilitation Potential Fair Impairments Impairments Activity Tolerance Balance Coordination Functional Activities Functional Mobility Gait Posture ROM Soft Tissue Mobility Strength Tone Transfers Goals Four Impairment Static Standing Balance Mcc Goal (LTG) Pt to stand with supervision assistance for 5 seconds without assistive device LTG Duration 03/29/18 Three Impairment Transfers Mcc Goal (LTG) Pt to perform stand-pivot transfer CGA with FWW LTG Duration 03/29/18 Two Impairment Gait Manager Shipping Goal (LTG) Pt to ambulate 100' SBA /c FWW LTG Duration 03/29/18 One Impairment LE weakness Mcc Goal (LTG) Ankle Plantarflexion to 3/5 bilaterally All remaining planes to 4/5 bilaterally LTG Duration 03/29/18 Progress Towards Goals Progress Towards Goals Slow Progress due to Medical Issues Progress Comments Multiple Sclerosis Assessment Summary Assessment Pt performed much better today , was able to verbalize requests to sit during gait, and was able to ambulate farther and with fewer verbal cues than normal. Physical Therapy Plan Frequency and Duration Frequency of Treatment 1x/Week Duration of Treatment 12 weeks Plan of Care Start Date 02/11/18 Plan of Care End Date 05/06/18 Therapeutic Interventions Therapeutic Interventions Aquatic Therapy Gait Training Home Exercise Program Joint Mobilizations Neuromuscular Re-education Patient/Caregiver Education Self-Care/Home Management Therapeutic Activities Therapeutic Exercises Next Visit Focus/Plan Next Note Type Treatment Note Next Visit Plan Gait training, Balance, Activity tolerance, strengthening
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
--- NOTE | 2018-04-15 16:46 | PT.OTN ---
Current Diagnoses Multiple sclerosis (04/15/18) Muscle weakness (generalized) (04/15/18) Ataxic gait (04/15/18) Unsteadiness on feet (04/15/18) Physical Therapy Treatment Note PT-OP-A Visit Information Start: 11/19/17 17:22 Freq: Status: Active Protocol: Document 04/15/18 16:00 DCW (Rec: 04/15/18 16:46 DCW [id number]) Out-Patient Physical Therapy Visit Information Visit Information Visit Type Treatment Note Visit Note Lost 10 minutes of treatment time due to bathroom break Visit Start Time 16:00 Visit Stop Time 16:45 Total Visit Minutes 35 Visit Number 69 Number of PUTTER IN Visits 0 Evaluation Information Evaluation Date 02/06/16 PT-OP-B Current Condition Start: 11/26/17 16:53 Freq: Status: Active Protocol: Document 02/11/18 16:00 DCW (Rec: 02/11/18 16:19 DCW [id number]) Current Condition History of Current Condition History of Current Condition See Therapy Source for full patient history Treatment Goals Patient/Caregiver Goals Decrease burden of care Prior Functional Status Baseline Function- ADL's Needs Assist Baseline Function- Mobility Needs Assist Current Functional Impairments (Reported) Functional Limitations- Mobility/Gait Pt ambulates 80' CGA/Min Ax1 / c FWW Pt transfers stand-pivot Min Ax1 for balance and stability PT-OP-C Subjective Start: 11/19/17 17:22 Freq: Status: Active Protocol: Document 04/15/18 16:00 DCW (Rec: 04/15/18 16:46 DCW [id number]) OP-PT Subjective Patient Comments Patient Comments Pt's [id number] notes that she seems energetic today. PT-OP-D Balance Start: 11/26/17 16:53 Freq: Status: Active Protocol: Document 02/11/18 16:00 DCW (Rec: 02/11/18 16:19 DCW [id number]) OP-PT Balance Assessment Standing Balance Static Standing Balance Ability Fair Dynamic Standing Balance Ability Poor Standing Balance Comments Pt requires Min Ax1 when standing without assistive device for 10 seconds Estrada Fall Scale Copyright Permission Estrada SHER, Estrada RM, Anna SJ. Development of a scale to identify the fall- prone patient. Can J Aging 1989;8;366-7. Elisabeth Dorado (2009). Preventing patient falls. (2nd ed). [place]: [employer]. PT-OP-G Mobility & Gait Start: 11/26/17 16:53 Freq: Status: Active Protocol: Document 02/11/18 16:00 DCW (Rec: 02/11/18 16:19 DCW [id number]) OP Mobility Evaluation Transfers Sit to Stand Min Ax1 /c FWW Bed to Chair Transfers Min Ax1 /c FWW OP Gait Assessment Gait Gait Assistance Required: Minimum Assistance 1 Person Assist Distance (Feet) 80 Assistive Devices Assistive Device Front Wheeled Walker Gait Deviations General Gait Pattern Ataxic Decreased Stride Length Decreased Feet Clearance Wide Based Gait Factors Limiting Gait Function Factors Limiting Gait Function Abnormal Tonal Influences Decreased Sensation Decreased Strength Poor Balance Poor Safety Awareness PT-OP-M Strength Start: 11/26/17 16:53 Freq: Status: Active Protocol: Document 02/11/18 16:00 DCW (Rec: 02/11/18 16:19 DCW [id number]) Hip Strength Hip Manual Muscle Testing Right Flexion (L2) 4 Good Abduction 4+ Good+ Adduction 5 Normal Left Flexion (L2) 4 Good Abduction 4+ Good+ Adduction 5 Normal Knee Strength Knee Manual Muscle Testing Right Flexion (S2) 4+ Good+ Extension (L3) 5 Normal Left Flexion (S2) 4+ Good+ Extension (L3) 5 Normal Ankle/Foot Strength Ankle and Foot Manual Muscle Testing Right Dorsiflexion (L4) 4+ Good+ Plantarflexion (S1) 3- Fair- Left Dorsiflexion (L4) 4+ Good+ Plantarflexion (S1) 3 Fair PT-OP-Q Treatments Start: 11/19/17 17:22 Freq: Status: Active Protocol: Document 04/15/18 16:00 DCW (Rec: 04/15/18 16:46 DCW [id number]) Cardio Equipment Upper Body Ergometer (UBE) Duration (Minutes) 2 RPM 60 Height 3 Other Forward/Backward Gym Equipment Shuttle Recovery Unilateral Squats Resistance 25# Shuttle Recovery Platform Stable Bilateral Squats Resistance 75# Shuttle Recovery Platform Stable Therapeutic Ball 1 Exercise Details LAQ kicking balls Ball Size/Color Small pink Body Position Sitting Comments 5# ankle weights Therapeutic Exercises Sitting Exercises 4 Sitting Exercise Name Seated marching Side bilateral Resistance 5# Equipment Used Ankle weights 3 Sitting Exercise Name LAQ Side bilateral Resistance 5# Equipment Used Ankle weights 2 Sitting Exercise Name Hip abduction Side bilateral Resistance Lv 3 Equipment Used T-band 1 Sitting Exercise Name Hamstring Curls Side bilateral Resistance Lv 3 Equipment Used T-band Gait Training Gait Activity 1 Device Used FWW Level of Assistance Mod Ax1 /c w/c follow Surface Level Distance/Duration 60' x1, 30' x1, 15' x1 Treatment Focus Knee extension/quad activation , activity tolerance PT-OP-T Assessment and Plan Start: 11/19/17 17:22 Freq: Status: Active Protocol: Document 04/15/18 16:00 DCW (Rec: 04/15/18 16:46 DCW [id number]) Physical Therapy Assessment Impairments Impairments Activity Tolerance Balance Coordination Functional Activities Functional Mobility Gait Posture ROM Soft Tissue Mobility Strength Tone Transfers Goals Four Impairment Static Standing Balance Snf Goal (LTG) Pt to stand with supervision assistance for 5 seconds without assistive device LTG Duration 03/29/18 Three Impairment Transfers Top Dyeing Machine Loader Goal (LTG) Pt to perform stand-pivot transfer CGA with FWW LTG Duration 03/29/18 Two Impairment Gait Top Dyeing Machine Loader Goal (LTG) Pt to ambulate 100' SBA /c FWW LTG Duration 03/29/18 One Impairment LE weakness Top Dyeing Machine Loader Goal (LTG) Ankle Plantarflexion to 3/5 bilaterally All remaining planes to 4/5 bilaterally LTG Duration 03/29/18 Progress Towards Goals Progress Towards Goals Slow Progress due to Medical Issues Progress Comments Multiple Sclerosis Assessment Summary Assessment Pt performed well for such a long lay-off from therapy, reports feeling better since the weather has cooled off. Physical Therapy Plan Frequency and Duration Frequency of Treatment 1x/Week Duration of Treatment 12 weeks Plan of Care Start Date 02/11/18 Plan of Care End Date 05/06/18 Therapeutic Interventions Therapeutic Interventions Aquatic Therapy Gait Training Home Exercise Program Joint Mobilizations Neuromuscular Re-education Patient/Caregiver Education Self-Care/Home Management Therapeutic Activities Therapeutic Exercises Next Visit Focus/Plan Next Note Type Treatment Note Next Visit Plan Gait training, Balance, Activity tolerance, strengthening
--- NOTE | 2018-04-22 16:28 | PT.OTN ---
Current Diagnoses Multiple sclerosis (04/22/18) Muscle weakness (generalized) (04/22/18) Ataxic gait (04/22/18) Unsteadiness on feet (04/22/18) Physical Therapy Treatment Note PT-OP-A Visit Information Start: 11/19/17 17:22 Freq: Status: Active Protocol: Document 04/22/18 16:00 DCW (Rec: 04/22/18 16:27 DCW [id number]) Out-Patient Physical Therapy Visit Information Visit Information Visit Type Treatment Note Visit Start Time 16:00 Visit Stop Time 16:20 Total Visit Minutes 20 Visit Number 70 Number of DIE PRESS OPERATOR Visits 0 Evaluation Information Evaluation Date 02/06/16 PT-OP-B Current Condition Start: 11/26/17 16:53 Freq: Status: Active Protocol: Document 02/11/18 16:00 DCW (Rec: 02/11/18 16:19 DCW [id number]) Current Condition History of Current Condition History of Current Condition See Therapy Source for full patient history Treatment Goals Patient/Caregiver Goals Decrease burden of care Prior Functional Status Baseline Function- ADL's Needs Assist Baseline Function- Mobility Needs Assist Current Functional Impairments (Reported) Functional Limitations- Mobility/Gait Pt ambulates 80' CGA/Min Ax1 / c FWW Pt transfers stand-pivot Min Ax1 for balance and stability PT-OP-C Subjective Start: 11/19/17 17:22 Freq: Status: Active Protocol: Document 04/22/18 16:00 DCW (Rec: 04/22/18 16:27 DCW [id number]) OP-PT Subjective Patient Comments Patient Comments Pt reports she feels okay today, however while walking appeared very fatigued and shakey. Pt's ljruizy-dv-wzo suggested that she may have another UTI. PT-OP-D Balance Start: 11/26/17 16:53 Freq: Status: Active Protocol: Document 02/11/18 16:00 DCW (Rec: 02/11/18 16:19 DCW [id number]) OP-PT Balance Assessment Standing Balance Static Standing Balance Ability Fair Dynamic Standing Balance Ability Poor Standing Balance Comments Pt requires Min Ax1 when standing without assistive device for 10 seconds Estrada Fall Scale Copyright Permission Estrada JM, Estrada RM, Anna SJ. Development of a scale to identify the fall- prone patient. Can J Aging 1989;8;366-7. Elisabeth Dorado (2009). Preventing patient falls. (2nd ed). [place]: [place]. PT-OP-G Mobility & Gait Start: 11/26/17 16:53 Freq: Status: Active Protocol: Document 02/11/18 16:00 DCW (Rec: 02/11/18 16:19 DCW [id number]) OP Mobility Evaluation Transfers Sit to Stand Min Ax1 /c FWW Bed to Chair Transfers Min Ax1 /c FWW OP Gait Assessment Gait Gait Assistance Required: Minimum Assistance 1 Person Assist Distance (Feet) 80 Assistive Devices Assistive Device Front Wheeled Walker Gait Deviations General Gait Pattern Ataxic Decreased Stride Length Decreased Feet Clearance Wide Based Gait Factors Limiting Gait Function Factors Limiting Gait Function Abnormal Tonal Influences Decreased Sensation Decreased Strength Poor Balance Poor Safety Awareness PT-OP-M Strength Start: 11/26/17 16:53 Freq: Status: Active Protocol: Document 02/11/18 16:00 DCW (Rec: 02/11/18 16:19 DCW [id number]) Hip Strength Hip Manual Muscle Testing Right Flexion (L2) 4 Good Abduction 4+ Good+ Adduction 5 Normal Left Flexion (L2) 4 Good Abduction 4+ Good+ Adduction 5 Normal Knee Strength Knee Manual Muscle Testing Right Flexion (S2) 4+ Good+ Extension (L3) 5 Normal Left Flexion (S2) 4+ Good+ Extension (L3) 5 Normal Ankle/Foot Strength Ankle and Foot Manual Muscle Testing Right Dorsiflexion (L4) 4+ Good+ Plantarflexion (S1) 3- Fair- Left Dorsiflexion (L4) 4+ Good+ Plantarflexion (S1) 3 Fair PT-OP-Q Treatments Start: 11/19/17 17:22 Freq: Status: Active Protocol: Document 04/22/18 16:00 DCW (Rec: 04/22/18 16:27 DCW [id number]) Cardio Equipment Upper Body Ergometer (UBE) Duration (Minutes) 2 RPM 60 Height 3 Other Forward/Backward Gait Training Gait Activity 1 Device Used FWW Level of Assistance Mod Ax1 /c w/c follow Surface Level Distance/Duration 20' x1, 10' x4 Treatment Focus Knee extension/quad activation , activity tolerance PT-OP-T Assessment and Plan Start: 11/19/17 17:22 Freq: Status: Active Protocol: Document 04/22/18 16:00 DCW (Rec: 04/22/18 16:27 DCW [id number]) Physical Therapy Assessment Impairments Impairments Activity Tolerance Balance Coordination Functional Activities Functional Mobility Gait Posture ROM Soft Tissue Mobility Strength Tone Transfers Goals Four Impairment Static Standing Balance Grain Inspector Goal (LTG) Pt to stand with supervision assistance for 5 seconds without assistive device LTG Duration 03/29/18 Three Impairment Transfers Grain Inspector Goal (LTG) Pt to perform stand-pivot transfer CGA with FWW LTG Duration 03/29/18 Two Impairment Gait Correction Goal (LTG) Pt to ambulate 100' SBA /c FWW LTG Duration 03/29/18 One Impairment LE weakness Grain Inspector Goal (LTG) Ankle Plantarflexion to 3/5 bilaterally All remaining planes to 4/5 bilaterally LTG Duration 03/29/18 Progress Towards Goals Progress Towards Goals Slow Progress due to Medical Issues Progress Comments Multiple Sclerosis Assessment Summary Assessment Pt struggled enough today that it appeared that there was some underlying issue, with her very quick fatigue, increased unsteadiness on her feet, and buckling knees. Stopped treatment early, recommended pt get tested for possible UTI, as this is typically how she had previously presented with the start of a UTI. Physical Therapy Plan Frequency and Duration Frequency of Treatment 1x/Week Duration of Treatment 12 weeks Plan of Care Start Date 02/11/18 Plan of Care End Date 05/06/18 Therapeutic Interventions Therapeutic Interventions Aquatic Therapy Gait Training Home Exercise Program Joint Mobilizations Neuromuscular Re-education Patient/Caregiver Education Self-Care/Home Management Therapeutic Activities Therapeutic Exercises Next Visit Focus/Plan Next Note Type Treatment Note Next Visit Plan Gait training, Balance, Activity tolerance, strengthening
--- NOTE | 2018-05-20 16:54 | PT.OTN ---
Current Diagnoses Multiple sclerosis (04/22/18) Muscle weakness (generalized) (04/22/18) Ataxic gait (04/22/18) Unsteadiness on feet (04/22/18) Physical Therapy Treatment Note PT-OP-A Visit Information Start: 11/19/17 17:22 Freq: Status: Active Protocol: Document 05/20/18 16:15 DCW (Rec: 05/20/18 16:54 DCW [id number]) Out-Patient Physical Therapy Visit Information Visit Information Visit Type Treatment Note Visit Start Time 16:00 Visit Stop Time 16:45 Total Visit Minutes 45 Visit Number 71 Number of PETROLEUM GEOLOGY FACULTY MEMBER Visits 0 Evaluation Information Evaluation Date 02/06/16 PT-OP-B Current Condition Start: 11/26/17 16:53 Freq: Status: Active Protocol: Document 02/11/18 16:00 DCW (Rec: 02/11/18 16:19 DCW [id number]) Current Condition History of Current Condition History of Current Condition See Therapy Source for full patient history Treatment Goals Patient/Caregiver Goals Decrease burden of care Prior Functional Status Baseline Function- ADL's Needs Assist Baseline Function- Mobility Needs Assist Current Functional Impairments (Reported) Functional Limitations- Mobility/Gait Pt ambulates 80' CGA/Min Ax1 / c FWW Pt transfers stand-pivot Min Ax1 for balance and stability PT-OP-C Subjective Start: 11/19/17 17:22 Freq: Status: Active Protocol: Document 05/20/18 16:15 DCW (Rec: 05/20/18 16:54 DCW [id number]) OP-PT Subjective Patient Comments Patient Comments Pt's [id number] reports she was able to do well with her car transfer today. PT-OP-D Balance Start: 11/26/17 16:53 Freq: Status: Active Protocol: Document 05/20/18 16:15 DCW (Rec: 05/20/18 16:44 DCW [id number]) OP-PT Balance Assessment Standing Balance Static Standing Balance Ability Fair Dynamic Standing Balance Ability Poor Standing Balance Comments Pt requires Min Ax1 when standing without assistive device for 10 seconds Dorado Fall Scale Copyright Permission Estrada SHER, Estrada RM, Anna SJ. Development of a scale to identify the fall- prone patient. Can J Aging 1989;8;366-7. Elisabeth Dorado (2009). Preventing patient falls. (2nd ed). [place]: [place]. PT-OP-G Mobility & Gait Start: 11/26/17 16:53 Freq: Status: Active Protocol: Document 05/20/18 16:15 DCW (Rec: 05/20/18 16:44 DCW [id number]) OP Mobility Evaluation Transfers Sit to Stand Min Ax1 /c FWW Bed to Chair Transfers Min Ax1 /c FWW OP Gait Assessment Gait Gait Assistance Required: Minimum Assistance 1 Person Assist Distance (Feet) 35 Assistive Devices Assistive Device Front Wheeled Walker Gait Deviations General Gait Pattern Ataxic Decreased Stride Length Decreased Feet Clearance Wide Based Gait Factors Limiting Gait Function Factors Limiting Gait Function Abnormal Tonal Influences Decreased Sensation Decreased Strength Poor Balance Poor Safety Awareness PT-OP-M Strength Start: 11/26/17 16:53 Freq: Status: Active Protocol: Document 05/20/18 16:15 DCW (Rec: 05/20/18 16:44 DCW [id number]) Hip Strength Hip Manual Muscle Testing Right Flexion (L2) 4 Good Abduction 4+ Good+ Adduction 5 Normal Left Flexion (L2) 4 Good Abduction 4+ Good+ Adduction 5 Normal Knee Strength Knee Manual Muscle Testing Right Flexion (S2) 4+ Good+ Extension (L3) 5 Normal Left Flexion (S2) 4+ Good+ Extension (L3) 5 Normal Ankle/Foot Strength Ankle and Foot Manual Muscle Testing Right Dorsiflexion (L4) 4+ Good+ Plantarflexion (S1) 3- Fair- Left Dorsiflexion (L4) 4+ Good+ Plantarflexion (S1) 3 Fair PT-OP-Q Treatments Start: 11/19/17 17:22 Freq: Status: Active Protocol: Document 05/20/18 16:15 DCW (Rec: 05/20/18 16:54 DCW [id number]) Cardio Equipment Upper Body Ergometer (UBE) Duration (Minutes) 6 RPM 60 Height 3 Other Forward/Backward Gym Equipment Shuttle Recovery Unilateral Squats Resistance 25# Shuttle Recovery Platform Stable Bilateral Squats Resistance 75# Shuttle Recovery Platform Stable Gait Training Gait Activity 1 Device Used FWW Level of Assistance Mod Ax1 /c w/c follow Surface Level Distance/Duration 35' x1, 10' x10 Treatment Focus Knee extension/quad activation , activity tolerance PT-OP-T Assessment and Plan Start: 11/19/17 17:22 Freq: Status: Active Protocol: Document 05/20/18 16:15 DCW (Rec: 05/20/18 16:54 DCW [id number]) Physical Therapy Assessment Impairments Impairments Activity Tolerance Balance Coordination Functional Activities Functional Mobility Gait Posture ROM Soft Tissue Mobility Strength Tone Transfers Goals Four Impairment Static Standing Balance Planner Scheduler Goal (LTG) Pt to stand with supervision assistance for 5 seconds without assistive device LTG Duration 08/20/18 Three Impairment Transfers Mcc Goal (LTG) Pt to perform stand-pivot transfer CGA with FWW LTG Duration 08/20/18 Two Impairment Gait Mcc Goal (LTG) Pt to ambulate 100' SBA /c FWW LTG Duration 08/20/18 One Impairment LE weakness Mcc Goal (LTG) Ankle Plantarflexion to 3/5 bilaterally All remaining planes to 4/5 bilaterally LTG Duration 08/20/18 Progress Towards Goals Progress Towards Goals Slow Progress due to Medical Issues Progress Comments Multiple Sclerosis Assessment Summary Assessment Pt had increased difficulty today with her ambulation, taking up a larger amount of her treatment session than usual. Pt's performance always varies greatly from visit-to- visit, but ambulation today was especially bad. Pt does not display and significant improvement in objective measures since beginning therapy, however has not declined either, which is typically a worry with MS. Pt should benefit from continued therapy in order to slow functional decline associated with multiple sclerosis, as well as decrease burden of care. Physical Therapy Plan Frequency and Duration Frequency of Treatment 1x/Week Duration of Treatment 3 months Plan of Care Start Date 05/20/18 Plan of Care End Date 08/20/18 Therapeutic Interventions Therapeutic Interventions Aquatic Therapy Gait Training Home Exercise Program Joint Mobilizations Neuromuscular Re-education Patient/Caregiver Education Self-Care/Home Management Therapeutic Activities Therapeutic Exercises Next Visit Focus/Plan Next Note Type Treatment Note Next Visit Plan Gait training, Balance, Activity tolerance, strengthening
--- NOTE | 2018-05-20 16:54 | PT.OPPOC ---
Current Diagnoses Multiple sclerosis (04/22/18) Muscle weakness (generalized) (04/22/18) Ataxic gait (04/22/18) Unsteadiness on feet (04/22/18) Provider Visit Care Team Role Provider Type Dariana Stratton DO Attending Provider Physician Family Provider Primary Care Provider Specialty: Family Practice Address: [address] [place] [address], [id number] Email: [email or web address] Plan Of Care PT-OP-T Assessment and Plan Start: 11/19/17 17:22 Freq: Status: Active Protocol: Document 05/20/18 16:15 DCW (Rec: 05/20/18 16:54 DCW [id number]) Physical Therapy Assessment Impairments Impairments Activity Tolerance Balance Coordination Functional Activities Functional Mobility Gait Posture ROM Soft Tissue Mobility Strength Tone Transfers Goals Four Impairment Static Standing Balance Nursing Home Goal (LTG) Pt to stand with supervision assistance for 5 seconds without assistive device LTG Duration 08/20/18 Three Impairment Transfers Motors Assembler Goal (LTG) Pt to perform stand-pivot transfer CGA with FWW LTG Duration 08/20/18 Two Impairment Gait Nursing Home Goal (LTG) Pt to ambulate 100' SBA /c FWW LTG Duration 08/20/18 One Impairment LE weakness Nursing Home Goal (LTG) Ankle Plantarflexion to 3/5 bilaterally All remaining planes to 4/5 bilaterally LTG Duration 08/20/18 Progress Towards Goals Progress Towards Goals Slow Progress due to Medical Issues Progress Comments Multiple Sclerosis Assessment Summary Assessment Pt had increased difficulty today with her ambulation, taking up a larger amount of her treatment session than usual. Pt's performance always varies greatly from visit-to- visit, but ambulation today was especially bad. Pt does not display and significant improvement in objective measures since beginning therapy, however has not declined either, which is typically a worry with MS. Pt should benefit from continued therapy in order to slow functional decline associated with multiple sclerosis, as well as decrease burden of care. Physical Therapy Plan Frequency and Duration Frequency of Treatment 1x/Week Duration of Treatment 3 months Plan of Care Start Date 05/20/18 Plan of Care End Date 08/20/18 Therapeutic Interventions Therapeutic Interventions Aquatic Therapy Gait Training Home Exercise Program Joint Mobilizations Neuromuscular Re-education Patient/Caregiver Education Self-Care/Home Management Therapeutic Activities Therapeutic Exercises Next Visit Focus/Plan Next Note Type Treatment Note Next Visit Plan Gait training, Balance, Activity tolerance, strengthening Plan of Care Dates Plan of Care Start Date 05/20/18 Plan of Care End Date 08/20/18 Please Sign and Return: I have reviewed this Plan of Care and certify that the skilled therapy services above are required to meet the patient?s needs. Physician Signature Date Printed Name and Credentials Clinical Instructor Signature Printed Name and Credentials
--- NOTE | 2018-05-27 16:45 | PT.OTN ---
Current Diagnoses Multiple sclerosis (05/27/18) Muscle weakness (generalized) (05/27/18) Ataxic gait (05/27/18) Unsteadiness on feet (05/27/18) Physical Therapy Treatment Note PT-OP-A Visit Information Start: 11/19/17 17:22 Freq: Status: Active Protocol: Document 05/27/18 16:00 DCW (Rec: 05/27/18 16:45 DCW [id number]) Out-Patient Physical Therapy Visit Information Visit Information Visit Type Treatment Note Visit Start Time 16:00 Visit Stop Time 16:45 Total Visit Minutes 45 Visit Number 72 Number of FISH BONING MACHINE FEEDER Visits 0 Evaluation Information Evaluation Date 02/06/16 PT-OP-B Current Condition Start: 11/26/17 16:53 Freq: Status: Active Protocol: Document 02/11/18 16:00 DCW (Rec: 02/11/18 16:19 DCW [id number]) Current Condition History of Current Condition History of Current Condition See Therapy Source for full patient history Treatment Goals Patient/Caregiver Goals Decrease burden of care Prior Functional Status Baseline Function- ADL's Needs Assist Baseline Function- Mobility Needs Assist Current Functional Impairments (Reported) Functional Limitations- Mobility/Gait Pt ambulates 80' CGA/Min Ax1 / c FWW Pt transfers stand-pivot Min Ax1 for balance and stability PT-OP-C Subjective Start: 11/19/17 17:22 Freq: Status: Active Protocol: Document 05/27/18 16:00 DCW (Rec: 05/27/18 16:45 DCW [id number]) OP-PT Subjective Patient Comments Patient Comments Pt reports she is feeling pretty good today. PT-OP-D Balance Start: 11/26/17 16:53 Freq: Status: Active Protocol: Document 05/20/18 16:15 DCW (Rec: 05/20/18 16:44 DCW [id number]) OP-PT Balance Assessment Standing Balance Static Standing Balance Ability Fair Dynamic Standing Balance Ability Poor Standing Balance Comments Pt requires Min Ax1 when standing without assistive device for 10 seconds Estrada Fall Scale Copyright Permission Estrada SHER, Estrada RM, Anna SJ. Development of a scale to identify the fall- prone patient. Can J Aging 1989;8;366-7. Elisabeth Dorado (2009). Preventing patient falls. (2nd ed). [place]: [employer]. PT-OP-G Mobility & Gait Start: 11/26/17 16:53 Freq: Status: Active Protocol: Document 05/20/18 16:15 DCW (Rec: 05/20/18 16:44 DCW [id number]) OP Mobility Evaluation Transfers Sit to Stand Min Ax1 /c FWW Bed to Chair Transfers Min Ax1 /c FWW OP Gait Assessment Gait Gait Assistance Required: Minimum Assistance 1 Person Assist Distance (Feet) 35 Assistive Devices Assistive Device Front Wheeled Walker Gait Deviations General Gait Pattern Ataxic Decreased Stride Length Decreased Feet Clearance Wide Based Gait Factors Limiting Gait Function Factors Limiting Gait Function Abnormal Tonal Influences Decreased Sensation Decreased Strength Poor Balance Poor Safety Awareness PT-OP-M Strength Start: 11/26/17 16:53 Freq: Status: Active Protocol: Document 05/20/18 16:15 DCW (Rec: 05/20/18 16:44 DCW [id number]) Hip Strength Hip Manual Muscle Testing Right Flexion (L2) 4 Good Abduction 4+ Good+ Adduction 5 Normal Left Flexion (L2) 4 Good Abduction 4+ Good+ Adduction 5 Normal Knee Strength Knee Manual Muscle Testing Right Flexion (S2) 4+ Good+ Extension (L3) 5 Normal Left Flexion (S2) 4+ Good+ Extension (L3) 5 Normal Ankle/Foot Strength Ankle and Foot Manual Muscle Testing Right Dorsiflexion (L4) 4+ Good+ Plantarflexion (S1) 3- Fair- Left Dorsiflexion (L4) 4+ Good+ Plantarflexion (S1) 3 Fair PT-OP-Q Treatments Start: 11/19/17 17:22 Freq: Status: Active Protocol: Document 05/27/18 16:00 DCW (Rec: 05/27/18 16:45 DCW [id number]) Cardio Equipment Upper Body Ergometer (UBE) Duration (Minutes) 6 RPM 60 Height 3 Other Forward/Backward Gym Equipment Shuttle Recovery Unilateral Squats Resistance 25# Shuttle Recovery Platform Stable Bilateral Squats Resistance 75# Shuttle Recovery Platform Stable Therapeutic Exercises Sitting Exercises 3 Sitting Exercise Name LAQ Side bilateral Resistance 5# Equipment Used Ankle weights 2 Sitting Exercise Name Hip abduction Side bilateral Resistance Lv 3 Equipment Used T-band 1 Sitting Exercise Name Hamstring Curls Side bilateral Resistance Lv 3 Equipment Used T-band Standing Exercises Hamstring Curls Standing Exercise Name HS curls @ rail Resistance 4# Equipment Used Ankle weights Hip Abduction Standing Exercise Name Abduction @ rail Resistance 4# Equipment Used Ankle weights Marching Standing Exercise Name Marching @ rail Resistance 4# Equipment Used Ankle weights Gait Training Gait Activity 1 Device Used FWW Level of Assistance Mod Ax1 /c w/c follow Surface Level Distance/Duration 40' x2, 10' x10 Treatment Focus Knee extension/quad activation , activity tolerance PT-OP-T Assessment and Plan Start: 11/19/17 17:22 Freq: Status: Active Protocol: Document 05/27/18 16:00 DCW (Rec: 05/27/18 16:45 DCW [id number]) Physical Therapy Assessment Impairments Impairments Activity Tolerance Balance Coordination Functional Activities Functional Mobility Gait Posture ROM Soft Tissue Mobility Strength Tone Transfers Goals Four Impairment Static Standing Balance Group Home Goal (LTG) Pt to stand with supervision assistance for 5 seconds without assistive device LTG Duration 08/20/18 Three Impairment Transfers Route Relief Driver Goal (LTG) Pt to perform stand-pivot transfer CGA with FWW LTG Duration 08/20/18 Two Impairment Gait Route Relief Driver Goal (LTG) Pt to ambulate 100' SBA /c FWW LTG Duration 08/20/18 One Impairment LE weakness Group Home Goal (LTG) Ankle Plantarflexion to 3/5 bilaterally All remaining planes to 4/5 bilaterally LTG Duration 08/20/18 Progress Towards Goals Progress Towards Goals Slow Progress due to Medical Issues Progress Comments Multiple Sclerosis Assessment Summary Assessment Pt displayed much improvement today both in ability and willingness to participate. Ambulation required fewer rest breaks, and pt was able to perform standing TherEx at railing with min A. Physical Therapy Plan Frequency and Duration Frequency of Treatment 1x/Week Duration of Treatment 3 months Plan of Care Start Date 05/20/18 Plan of Care End Date 08/20/18 Therapeutic Interventions Therapeutic Interventions Aquatic Therapy Gait Training Home Exercise Program Joint Mobilizations Neuromuscular Re-education Patient/Caregiver Education Self-Care/Home Management Therapeutic Activities Therapeutic Exercises Next Visit Focus/Plan Next Note Type Treatment Note Next Visit Plan Gait training, Balance, Activity tolerance, strengthening
--- NOTE | 2018-06-10 16:46 | PT.OTN ---
Current Diagnoses Multiple sclerosis (06/10/18) Muscle weakness (generalized) (06/10/18) Ataxic gait (06/10/18) Unsteadiness on feet (06/10/18) Physical Therapy Treatment Note PT-OP-A Visit Information Start: 11/19/17 17:22 Freq: Status: Active Protocol: Document 06/10/18 16:00 DCW (Rec: 06/10/18 16:46 DCW [id number]) Out-Patient Physical Therapy Visit Information Visit Information Visit Type Treatment Note Visit Start Time 16:00 Visit Stop Time 16:45 Total Visit Minutes 45 Visit Number 73 Number of WORK AND FAMILY LIFE CONSULTANT Visits 0 Evaluation Information Evaluation Date 02/06/16 PT-OP-B Current Condition Start: 11/26/17 16:53 Freq: Status: Active Protocol: Document 02/11/18 16:00 DCW (Rec: 02/11/18 16:19 DCW [id number]) Current Condition History of Current Condition History of Current Condition See Therapy Source for full patient history Treatment Goals Patient/Caregiver Goals Decrease burden of care Prior Functional Status Baseline Function- ADL's Needs Assist Baseline Function- Mobility Needs Assist Current Functional Impairments (Reported) Functional Limitations- Mobility/Gait Pt ambulates 80' CGA/Min Ax1 / c FWW Pt transfers stand-pivot Min Ax1 for balance and stability PT-OP-C Subjective Start: 11/19/17 17:22 Freq: Status: Active Protocol: Document 06/10/18 16:00 DCW (Rec: 06/10/18 16:46 DCW [id number]) OP-PT Subjective Patient Comments Patient Comments Pt notes that is it cold outside, so she doesn't know how she'll do today. PT-OP-D Balance Start: 11/26/17 16:53 Freq: Status: Active Protocol: Document 05/20/18 16:15 DCW (Rec: 05/20/18 16:44 DCW [id number]) OP-PT Balance Assessment Standing Balance Static Standing Balance Ability Fair Dynamic Standing Balance Ability Poor Standing Balance Comments Pt requires Min Ax1 when standing without assistive device for 10 seconds Estrada Fall Scale Copyright Permission Estrada SHER, Estrada RM, Anna SJ. Development of a scale to identify the fall- prone patient. Can J Aging 1989;8;366-7. Elisabeth Dorado (2009). Preventing patient falls. (2nd ed). [place]: [place]. PT-OP-G Mobility & Gait Start: 11/26/17 16:53 Freq: Status: Active Protocol: Document 05/20/18 16:15 DCW (Rec: 05/20/18 16:44 DCW [id number]) OP Mobility Evaluation Transfers Sit to Stand Min Ax1 /c FWW Bed to Chair Transfers Min Ax1 /c FWW OP Gait Assessment Gait Gait Assistance Required: Minimum Assistance 1 Person Assist Distance (Feet) 35 Assistive Devices Assistive Device Front Wheeled Walker Gait Deviations General Gait Pattern Ataxic Decreased Stride Length Decreased Feet Clearance Wide Based Gait Factors Limiting Gait Function Factors Limiting Gait Function Abnormal Tonal Influences Decreased Sensation Decreased Strength Poor Balance Poor Safety Awareness PT-OP-M Strength Start: 11/26/17 16:53 Freq: Status: Active Protocol: Document 05/20/18 16:15 DCW (Rec: 05/20/18 16:44 DCW [id number]) Hip Strength Hip Manual Muscle Testing Right Flexion (L2) 4 Good Abduction 4+ Good+ Adduction 5 Normal Left Flexion (L2) 4 Good Abduction 4+ Good+ Adduction 5 Normal Knee Strength Knee Manual Muscle Testing Right Flexion (S2) 4+ Good+ Extension (L3) 5 Normal Left Flexion (S2) 4+ Good+ Extension (L3) 5 Normal Ankle/Foot Strength Ankle and Foot Manual Muscle Testing Right Dorsiflexion (L4) 4+ Good+ Plantarflexion (S1) 3- Fair- Left Dorsiflexion (L4) 4+ Good+ Plantarflexion (S1) 3 Fair PT-OP-Q Treatments Start: 11/19/17 17:22 Freq: Status: Active Protocol: Document 06/10/18 16:00 DCW (Rec: 06/10/18 16:46 DCW [id number]) Cardio Equipment Upper Body Ergometer (UBE) Duration (Minutes) 6 RPM 60 Height 3 Other Forward/Backward Gym Equipment Shuttle Recovery Unilateral Squats Resistance 25# Shuttle Recovery Platform Stable Bilateral Squats Resistance 75# Shuttle Recovery Platform Stable Therapeutic Ball 1 Exercise Details LAQ kicking balls Ball Size/Color Small pink Body Position Sitting Comments 10# ankle weights Therapeutic Exercises Sitting Exercises 3 Sitting Exercise Name LAQ Side bilateral Resistance 10# Equipment Used Ankle weights Standing Exercises Hip Abduction Standing Exercise Name Abduction @ rail Resistance 10# Equipment Used Ankle weights Gait Training Gait Activity 1 Device Used FWW Level of Assistance Mod Ax1 /c w/c follow Surface Level Distance/Duration 60' x2, 20' x10, 10' x1 Treatment Focus Knee extension/quad activation , activity tolerance PT-OP-T Assessment and Plan Start: 11/19/17 17:22 Freq: Status: Active Protocol: Document 06/10/18 16:00 DCW (Rec: 06/10/18 16:46 DCW [id number]) Physical Therapy Assessment Impairments Impairments Activity Tolerance Balance Coordination Functional Activities Functional Mobility Gait Posture ROM Soft Tissue Mobility Strength Tone Transfers Goals Four Impairment Static Standing Balance Intermediate Goal (LTG) Pt to stand with supervision assistance for 5 seconds without assistive device LTG Duration 08/20/18 Three Impairment Transfers Intermediate Goal (LTG) Pt to perform stand-pivot transfer CGA with FWW LTG Duration 08/20/18 Two Impairment Gait Industrial Roofer Goal (LTG) Pt to ambulate 100' SBA /c FWW LTG Duration 08/20/18 One Impairment LE weakness Intermediate Goal (LTG) Ankle Plantarflexion to 3/5 bilaterally All remaining planes to 4/5 bilaterally LTG Duration 08/20/18 Progress Towards Goals Progress Towards Goals Slow Progress due to Medical Issues Progress Comments Multiple Sclerosis Assessment Summary Assessment Pt again did better with her walking today, although she tired out quickly over the remainder of her appointment. Physical Therapy Plan Frequency and Duration Frequency of Treatment 1x/Week Duration of Treatment 3 months Plan of Care Start Date 05/20/18 Plan of Care End Date 08/20/18 Therapeutic Interventions Therapeutic Interventions Aquatic Therapy Gait Training Home Exercise Program Joint Mobilizations Neuromuscular Re-education Patient/Caregiver Education Self-Care/Home Management Therapeutic Activities Therapeutic Exercises Next Visit Focus/Plan Next Note Type Treatment Note Next Visit Plan Gait training, Balance, Activity tolerance, strengthening
--- NOTE | 2018-06-17 16:50 | PT.OTN ---
Current Diagnoses Multiple sclerosis (06/17/18) Muscle weakness (generalized) (06/17/18) Ataxic gait (06/17/18) Unsteadiness on feet (06/17/18) Physical Therapy Treatment Note PT-OP-A Visit Information Start: 11/19/17 17:22 Freq: Status: Active Protocol: Document 06/17/18 16:00 DCW (Rec: 06/17/18 16:49 DCW [id number]) Out-Patient Physical Therapy Visit Information Visit Information Visit Type Treatment Note Visit Start Time 16:00 Visit Stop Time 16:45 Total Visit Minutes 45 Visit Number 74 Number of RADAR AIR TRAFFIC CONTROLLER Visits 0 Evaluation Information Evaluation Date 02/06/16 PT-OP-B Current Condition Start: 11/26/17 16:53 Freq: Status: Active Protocol: Document 02/11/18 16:00 DCW (Rec: 02/11/18 16:19 DCW [id number]) Current Condition History of Current Condition History of Current Condition See Therapy Source for full patient history Treatment Goals Patient/Caregiver Goals Decrease burden of care Prior Functional Status Baseline Function- ADL's Needs Assist Baseline Function- Mobility Needs Assist Current Functional Impairments (Reported) Functional Limitations- Mobility/Gait Pt ambulates 80' CGA/Min Ax1 / c FWW Pt transfers stand-pivot Min Ax1 for balance and stability PT-OP-C Subjective Start: 11/19/17 17:22 Freq: Status: Active Protocol: Document 06/17/18 16:00 DCW (Rec: 06/17/18 16:49 DCW [id number]) OP-PT Subjective Patient Comments Patient Comments Pt reports that I think I'm doing okay today. PT-OP-D Balance Start: 11/26/17 16:53 Freq: Status: Active Protocol: Document 05/20/18 16:15 DCW (Rec: 05/20/18 16:44 DCW [id number]) OP-PT Balance Assessment Standing Balance Static Standing Balance Ability Fair Dynamic Standing Balance Ability Poor Standing Balance Comments Pt requires Min Ax1 when standing without assistive device for 10 seconds Estrada Fall Scale Copyright Permission Estrada SHER, Estrada RM, Anna SJ. Development of a scale to identify the fall- prone patient. Can J Aging 1989;8;366-7. Elisabeth Dorado (2009). Preventing patient falls. (2nd ed). [place]: [employer]. PT-OP-G Mobility & Gait Start: 11/26/17 16:53 Freq: Status: Active Protocol: Document 05/20/18 16:15 DCW (Rec: 05/20/18 16:44 DCW [id number]) OP Mobility Evaluation Transfers Sit to Stand Min Ax1 /c FWW Bed to Chair Transfers Min Ax1 /c FWW OP Gait Assessment Gait Gait Assistance Required: Minimum Assistance 1 Person Assist Distance (Feet) 35 Assistive Devices Assistive Device Front Wheeled Walker Gait Deviations General Gait Pattern Ataxic Decreased Stride Length Decreased Feet Clearance Wide Based Gait Factors Limiting Gait Function Factors Limiting Gait Function Abnormal Tonal Influences Decreased Sensation Decreased Strength Poor Balance Poor Safety Awareness PT-OP-M Strength Start: 11/26/17 16:53 Freq: Status: Active Protocol: Document 05/20/18 16:15 DCW (Rec: 05/20/18 16:44 DCW [id number]) Hip Strength Hip Manual Muscle Testing Right Flexion (L2) 4 Good Abduction 4+ Good+ Adduction 5 Normal Left Flexion (L2) 4 Good Abduction 4+ Good+ Adduction 5 Normal Knee Strength Knee Manual Muscle Testing Right Flexion (S2) 4+ Good+ Extension (L3) 5 Normal Left Flexion (S2) 4+ Good+ Extension (L3) 5 Normal Ankle/Foot Strength Ankle and Foot Manual Muscle Testing Right Dorsiflexion (L4) 4+ Good+ Plantarflexion (S1) 3- Fair- Left Dorsiflexion (L4) 4+ Good+ Plantarflexion (S1) 3 Fair PT-OP-Q Treatments Start: 11/19/17 17:22 Freq: Status: Active Protocol: Document 06/17/18 16:00 DCW (Rec: 06/17/18 16:49 DCW [id number]) Cardio Equipment Upper Body Ergometer (UBE) Duration (Minutes) 6 RPM 60 Height 3 Other Forward/Backward Gym Equipment Shuttle Recovery Unilateral Squats Resistance 25# Shuttle Recovery Platform Stable Bilateral Squats Resistance 75# Shuttle Recovery Platform Stable Gait Training Gait Activity 1 Device Used FWW Level of Assistance Mod Ax1 /c w/c follow Surface Level Distance/Duration 40' x1, 20' x4, 10' x6 Treatment Focus Knee extension/quad activation , activity tolerance Neuro Re-Education Treatment Coordination Activities 1 Details Cone activities Equipment Cones Speed 5# ankle weight Reps/Duration 10 Comments Using feet to knock over cones for coordination training/ neuromuscular re-education PT-OP-T Assessment and Plan Start: 11/19/17 17:22 Freq: Status: Active Protocol: Document 06/17/18 16:00 DCW (Rec: 06/17/18 16:49 DCW [id number]) Physical Therapy Assessment Impairments Impairments Activity Tolerance Balance Coordination Functional Activities Functional Mobility Gait Posture ROM Soft Tissue Mobility Strength Tone Transfers Goals Four Impairment Static Standing Balance Long-Term Goal (LTG) Pt to stand with supervision assistance for 5 seconds without assistive device LTG Duration 08/20/18 Three Impairment Transfers Long-Term Goal (LTG) Pt to perform stand-pivot transfer CGA with FWW LTG Duration 08/20/18 Two Impairment Gait Chief Radiation Therapist Goal (LTG) Pt to ambulate 100' SBA /c FWW LTG Duration 08/20/18 One Impairment LE weakness Long-Term Goal (LTG) Ankle Plantarflexion to 3/5 bilaterally All remaining planes to 4/5 bilaterally LTG Duration 08/20/18 Progress Towards Goals Progress Towards Goals Slow Progress due to Medical Issues Progress Comments Multiple Sclerosis Assessment Summary Assessment Pt did not do as well walking today, increased fatigue and knee buckling. Physical Therapy Plan Frequency and Duration Frequency of Treatment 1x/Week Duration of Treatment 3 months Plan of Care Start Date 05/20/18 Plan of Care End Date 08/20/18 Therapeutic Interventions Therapeutic Interventions Aquatic Therapy Gait Training Home Exercise Program Joint Mobilizations Neuromuscular Re-education Patient/Caregiver Education Self-Care/Home Management Therapeutic Activities Therapeutic Exercises Next Visit Focus/Plan Next Note Type Treatment Note Next Visit Plan Gait training, Balance, Activity tolerance, strengthening
--- NOTE | 2018-07-22 17:29 | PT.OTN ---
Current Diagnoses Multiple sclerosis (07/22/18) Muscle weakness (generalized) (07/22/18) Ataxic gait (07/22/18) Unsteadiness on feet (07/22/18) Physical Therapy Treatment Note PT-OP-A Visit Information Start: 11/19/17 17:22 Freq: Status: Active Protocol: Document 07/22/18 16:45 DCW (Rec: 07/22/18 17:29 DCW [id number]) Out-Patient Physical Therapy Visit Information Visit Information Visit Type Treatment Note Visit Start Time 16:45 Visit Stop Time 17:30 Total Visit Minutes 45 Visit Number 75 Number of RESEARCH WORKER KITCHEN Visits 0 Evaluation Information Evaluation Date 02/06/16 PT-OP-B Current Condition Start: 11/26/17 16:53 Freq: Status: Active Protocol: Document 02/11/18 16:00 DCW (Rec: 02/11/18 16:19 DCW [id number]) Current Condition History of Current Condition History of Current Condition See Therapy Source for full patient history Treatment Goals Patient/Caregiver Goals Decrease burden of care Prior Functional Status Baseline Function- ADL's Needs Assist Baseline Function- Mobility Needs Assist Current Functional Impairments (Reported) Functional Limitations- Mobility/Gait Pt ambulates 80' CGA/Min Ax1 / c FWW Pt transfers stand-pivot Min Ax1 for balance and stability PT-OP-C Subjective Start: 11/19/17 17:22 Freq: Status: Active Protocol: Document 07/22/18 16:45 DCW (Rec: 07/22/18 17:29 DCW [id number]) OP-PT Subjective Patient Comments Patient Comments Pt notes she is doing well today, but admits she did not sleep well last night. PT-OP-D Balance Start: 11/26/17 16:53 Freq: Status: Active Protocol: Document 05/20/18 16:15 DCW (Rec: 05/20/18 16:44 DCW [id number]) OP-PT Balance Assessment Standing Balance Static Standing Balance Ability Fair Dynamic Standing Balance Ability Poor Standing Balance Comments Pt requires Min Ax1 when standing without assistive device for 10 seconds Estrada Fall Scale Copyright Permission Estrada SHER, Estrada RM, Anna SJ. Development of a scale to identify the fall- prone patient. Can J Aging 1989;8;366-7. Elisabeth Dorado (2009). Preventing patient falls. (2nd ed). [place]: Smalls. PT-OP-G Mobility & Gait Start: 11/26/17 16:53 Freq: Status: Active Protocol: Document 05/20/18 16:15 DCW (Rec: 05/20/18 16:44 DCW [id number]) OP Mobility Evaluation Transfers Sit to Stand Min Ax1 /c FWW Bed to Chair Transfers Min Ax1 /c FWW OP Gait Assessment Gait Gait Assistance Required: Minimum Assistance 1 Person Assist Distance (Feet) 35 Assistive Devices Assistive Device Front Wheeled Walker Gait Deviations General Gait Pattern Ataxic Decreased Stride Length Decreased Feet Clearance Wide Based Gait Factors Limiting Gait Function Factors Limiting Gait Function Abnormal Tonal Influences Decreased Sensation Decreased Strength Poor Balance Poor Safety Awareness PT-OP-M Strength Start: 11/26/17 16:53 Freq: Status: Active Protocol: Document 05/20/18 16:15 DCW (Rec: 05/20/18 16:44 DCW [id number]) Hip Strength Hip Manual Muscle Testing Right Flexion (L2) 4 Good Abduction 4+ Good+ Adduction 5 Normal Left Flexion (L2) 4 Good Abduction 4+ Good+ Adduction 5 Normal Knee Strength Knee Manual Muscle Testing Right Flexion (S2) 4+ Good+ Extension (L3) 5 Normal Left Flexion (S2) 4+ Good+ Extension (L3) 5 Normal Ankle/Foot Strength Ankle and Foot Manual Muscle Testing Right Dorsiflexion (L4) 4+ Good+ Plantarflexion (S1) 3- Fair- Left Dorsiflexion (L4) 4+ Good+ Plantarflexion (S1) 3 Fair PT-OP-Q Treatments Start: 11/19/17 17:22 Freq: Status: Active Protocol: Document 07/22/18 16:45 DCW (Rec: 07/22/18 17:29 DCW [id number]) Cardio Equipment Upper Body Ergometer (UBE) Duration (Minutes) 6 RPM 60 Height 3 Other Forward/Backward Gym Equipment Shuttle Recovery Unilateral Squats Resistance 25# Shuttle Recovery Platform Stable Bilateral Squats Resistance 75# Shuttle Recovery Platform Stable Therapeutic Exercises Sitting Exercises 3 Sitting Exercise Name LAQ Side bilateral Resistance 5# Equipment Used Ankle weights 2 Sitting Exercise Name Hip abduction Side bilateral Resistance Lv 3 Equipment Used T-band 1 Sitting Exercise Name Hamstring Curls Side bilateral Resistance Lv 3 Equipment Used T-band Standing Exercises Hamstring Curls Standing Exercise Name HS curls @ rail Resistance 2# Equipment Used Ankle weights Hip Abduction Standing Exercise Name Abduction @ rail Resistance 2# Equipment Used Ankle weights Marching Standing Exercise Name Marching @ rail Resistance 2# Equipment Used Ankle weights Gait Training Gait Activity 1 Device Used FWW Level of Assistance Mod Ax1 /c w/c follow Surface Level Distance/Duration 80' x1, 40' x1, 20' x1 Treatment Focus Knee extension/quad activation , activity tolerance PT-OP-T Assessment and Plan Start: 11/19/17 17:22 Freq: Status: Active Protocol: Document 07/22/18 16:45 DCW (Rec: 07/22/18 17:29 DCW [id number]) Physical Therapy Assessment Impairments Impairments Activity Tolerance Balance Coordination Functional Activities Functional Mobility Gait Posture ROM Soft Tissue Mobility Strength Tone Transfers Goals Four Impairment Static Standing Balance Language Therapist Goal (LTG) Pt to stand with supervision assistance for 5 seconds without assistive device LTG Duration 08/20/18 Three Impairment Transfers Language Therapist Goal (LTG) Pt to perform stand-pivot transfer CGA with FWW LTG Duration 08/20/18 Two Impairment Gait Snf Goal (LTG) Pt to ambulate 100' SBA /c FWW LTG Duration 08/20/18 One Impairment LE weakness Language Therapist Goal (LTG) Ankle Plantarflexion to 3/5 bilaterally All remaining planes to 4/5 bilaterally LTG Duration 08/20/18 Progress Towards Goals Progress Towards Goals Slow Progress due to Medical Issues Progress Comments Multiple Sclerosis Assessment Summary Assessment Pt did very well today with walking, turning, and supine-> sit mobility, especially considering her long lay-off from PT. Physical Therapy Plan Frequency and Duration Frequency of Treatment 1x/Week Duration of Treatment 3 months Plan of Care Start Date 05/20/18 Plan of Care End Date 08/20/18 Therapeutic Interventions Therapeutic Interventions Aquatic Therapy Gait Training Home Exercise Program Joint Mobilizations Neuromuscular Re-education Patient/Caregiver Education Self-Care/Home Management Therapeutic Activities Therapeutic Exercises Next Visit Focus/Plan Next Note Type Treatment Note Next Visit Plan Gait training, Balance, Activity tolerance, strengthening
--- NOTE | 2018-07-29 17:31 | PT.OTN ---
Current Diagnoses Multiple sclerosis (07/29/18) Muscle weakness (generalized) (07/29/18) Ataxic gait (07/29/18) Unsteadiness on feet (07/29/18) Physical Therapy Treatment Note PT-OP-A Visit Information Start: 11/19/17 17:22 Freq: Status: Active Protocol: Document 07/29/18 16:45 DCW (Rec: 07/29/18 17:31 DCW [id number]) Out-Patient Physical Therapy Visit Information Visit Information Visit Type Treatment Note Visit Start Time 16:45 Visit Stop Time 17:30 Total Visit Minutes 45 Visit Number 76 Number of LUBRICATION TECHNICIAN Visits 0 Evaluation Information Evaluation Date 02/06/16 PT-OP-B Current Condition Start: 11/26/17 16:53 Freq: Status: Active Protocol: Document 02/11/18 16:00 DCW (Rec: 02/11/18 16:19 DCW [id number]) Current Condition History of Current Condition History of Current Condition See Therapy Source for full patient history Treatment Goals Patient/Caregiver Goals Decrease burden of care Prior Functional Status Baseline Function- ADL's Needs Assist Baseline Function- Mobility Needs Assist Current Functional Impairments (Reported) Functional Limitations- Mobility/Gait Pt ambulates 80' CGA/Min Ax1 / c FWW Pt transfers stand-pivot Min Ax1 for balance and stability PT-OP-C Subjective Start: 11/19/17 17:22 Freq: Status: Active Protocol: Document 07/29/18 16:45 DCW (Rec: 07/29/18 17:31 DCW [id number]) OP-PT Subjective Patient Comments Patient Comments Pt reports she does not feel as well as she did last week. PT-OP-D Balance Start: 11/26/17 16:53 Freq: Status: Active Protocol: Document 05/20/18 16:15 DCW (Rec: 05/20/18 16:44 DCW [id number]) OP-PT Balance Assessment Standing Balance Static Standing Balance Ability Fair Dynamic Standing Balance Ability Poor Standing Balance Comments Pt requires Min Ax1 when standing without assistive device for 10 seconds Dorado Fall Scale Copyright Permission Estrada SHER, Estrada RM, Anna SJ. Development of a scale to identify the fall- prone patient. Can J Aging 1989;8;366-7. Elisabeth Dorado (2009). Preventing patient falls. (2nd ed). [place]: Smalls. PT-OP-G Mobility & Gait Start: 11/26/17 16:53 Freq: Status: Active Protocol: Document 05/20/18 16:15 DCW (Rec: 05/20/18 16:44 DCW [id number]) OP Mobility Evaluation Transfers Sit to Stand Min Ax1 /c FWW Bed to Chair Transfers Min Ax1 /c FWW OP Gait Assessment Gait Gait Assistance Required: Minimum Assistance 1 Person Assist Distance (Feet) 35 Assistive Devices Assistive Device Front Wheeled Walker Gait Deviations General Gait Pattern Ataxic Decreased Stride Length Decreased Feet Clearance Wide Based Gait Factors Limiting Gait Function Factors Limiting Gait Function Abnormal Tonal Influences Decreased Sensation Decreased Strength Poor Balance Poor Safety Awareness PT-OP-M Strength Start: 11/26/17 16:53 Freq: Status: Active Protocol: Document 05/20/18 16:15 DCW (Rec: 05/20/18 16:44 DCW [id number]) Hip Strength Hip Manual Muscle Testing Right Flexion (L2) 4 Good Abduction 4+ Good+ Adduction 5 Normal Left Flexion (L2) 4 Good Abduction 4+ Good+ Adduction 5 Normal Knee Strength Knee Manual Muscle Testing Right Flexion (S2) 4+ Good+ Extension (L3) 5 Normal Left Flexion (S2) 4+ Good+ Extension (L3) 5 Normal Ankle/Foot Strength Ankle and Foot Manual Muscle Testing Right Dorsiflexion (L4) 4+ Good+ Plantarflexion (S1) 3- Fair- Left Dorsiflexion (L4) 4+ Good+ Plantarflexion (S1) 3 Fair PT-OP-Q Treatments Start: 11/19/17 17:22 Freq: Status: Active Protocol: Document 07/29/18 16:45 DCW (Rec: 07/29/18 17:31 DCW [id number]) Cardio Equipment Upper Body Ergometer (UBE) Duration (Minutes) 6 RPM 60 Height 3 Other Forward/Backward Gym Equipment Shuttle Recovery Unilateral Squats Resistance 25# Shuttle Recovery Platform Stable Bilateral Squats Resistance 75# Shuttle Recovery Platform Stable Therapeutic Ball 1 Exercise Details LAQ kicking balls Ball Size/Color Small pink Body Position Sitting Comments 5# ankle weights Therapeutic Exercises Sitting Exercises 4 Sitting Exercise Name Seated Marching Side bilateral Resistance 5# Equipment Used Ankle weights 3 Sitting Exercise Name LAQ Side bilateral Resistance 5# Equipment Used Ankle weights Gait Training Gait Activity 1 Device Used FWW Level of Assistance Mod Ax1 /c w/c follow Surface Level Distance/Duration 10' x6 Treatment Focus Knee extension/quad activation , activity tolerance PT-OP-T Assessment and Plan Start: 11/19/17 17:22 Freq: Status: Active Protocol: Document 07/29/18 16:45 DCW (Rec: 07/29/18 17:31 DCW [id number]) Physical Therapy Assessment Impairments Impairments Activity Tolerance Balance Coordination Functional Activities Functional Mobility Gait Posture ROM Soft Tissue Mobility Strength Tone Transfers Goals Four Impairment Static Standing Balance Senior Living Goal (LTG) Pt to stand with supervision assistance for 5 seconds without assistive device LTG Duration 08/20/18 Three Impairment Transfers Waiter/Waitress Cabin Class Goal (LTG) Pt to perform stand-pivot transfer CGA with FWW LTG Duration 08/20/18 Two Impairment Gait Waiter/Waitress Cabin Class Goal (LTG) Pt to ambulate 100' SBA /c FWW LTG Duration 08/20/18 One Impairment LE weakness Waiter/Waitress Cabin Class Goal (LTG) Ankle Plantarflexion to 3/5 bilaterally All remaining planes to 4/5 bilaterally LTG Duration 08/20/18 Progress Towards Goals Progress Towards Goals Slow Progress due to Medical Issues Progress Comments Multiple Sclerosis Assessment Summary Assessment Pt did much more poorly today than she did last week, struggling with sit<->stand transfers and ambulation. Physical Therapy Plan Frequency and Duration Frequency of Treatment 1x/Week Duration of Treatment 3 months Plan of Care Start Date 05/20/18 Plan of Care End Date 08/20/18 Therapeutic Interventions Therapeutic Interventions Aquatic Therapy Gait Training Home Exercise Program Joint Mobilizations Neuromuscular Re-education Patient/Caregiver Education Self-Care/Home Management Therapeutic Activities Therapeutic Exercises Next Visit Focus/Plan Next Note Type Treatment Note Next Visit Plan Gait training, Balance, Activity tolerance, strengthening
--- NOTE | 2018-08-05 16:44 | PT.OTN ---
Current Diagnoses Multiple sclerosis (08/05/18) Muscle weakness (generalized) (08/05/18) Ataxic gait (08/05/18) Unsteadiness on feet (08/05/18) Physical Therapy Treatment Note PT-OP-A Visit Information Start: 11/19/17 17:22 Freq: Status: Active Protocol: Document 08/05/18 16:00 DCW (Rec: 08/05/18 16:44 DCW [id number]) Out-Patient Physical Therapy Visit Information Visit Information Visit Type Treatment Note Visit Start Time 16:00 Visit Stop Time 16:45 Total Visit Minutes 45 Visit Number 77 Number of BLOW MOLD TECHNICIAN Visits 0 Evaluation Information Evaluation Date 02/06/16 PT-OP-B Current Condition Start: 11/26/17 16:53 Freq: Status: Active Protocol: Document 02/11/18 16:00 DCW (Rec: 02/11/18 16:19 DCW [id number]) Current Condition History of Current Condition History of Current Condition See Therapy Source for full patient history Treatment Goals Patient/Caregiver Goals Decrease burden of care Prior Functional Status Baseline Function- ADL's Needs Assist Baseline Function- Mobility Needs Assist Current Functional Impairments (Reported) Functional Limitations- Mobility/Gait Pt ambulates 80' CGA/Min Ax1 / c FWW Pt transfers stand-pivot Min Ax1 for balance and stability PT-OP-C Subjective Start: 11/19/17 17:22 Freq: Status: Active Protocol: Document 08/05/18 16:00 DCW (Rec: 08/05/18 16:44 DCW [id number]) OP-PT Subjective Patient Comments Patient Comments Pt notes that she is cold today. PT-OP-D Balance Start: 11/26/17 16:53 Freq: Status: Active Protocol: Document 05/20/18 16:15 DCW (Rec: 05/20/18 16:44 DCW [id number]) OP-PT Balance Assessment Standing Balance Static Standing Balance Ability Fair Dynamic Standing Balance Ability Poor Standing Balance Comments Pt requires Min Ax1 when standing without assistive device for 10 seconds Estrada Fall Scale Copyright Permission Estrada SHER, Estrada RM, Anna SJ. Development of a scale to identify the fall- prone patient. Can J Aging 1989;8;366-7. Elisabeth Dorado (2009). Preventing patient falls. (2nd ed). [place]: [employer]. PT-OP-G Mobility & Gait Start: 11/26/17 16:53 Freq: Status: Active Protocol: Document 05/20/18 16:15 DCW (Rec: 05/20/18 16:44 DCW [id number]) OP Mobility Evaluation Transfers Sit to Stand Min Ax1 /c FWW Bed to Chair Transfers Min Ax1 /c FWW OP Gait Assessment Gait Gait Assistance Required: Minimum Assistance 1 Person Assist Distance (Feet) 35 Assistive Devices Assistive Device Front Wheeled Walker Gait Deviations General Gait Pattern Ataxic Decreased Stride Length Decreased Feet Clearance Wide Based Gait Factors Limiting Gait Function Factors Limiting Gait Function Abnormal Tonal Influences Decreased Sensation Decreased Strength Poor Balance Poor Safety Awareness PT-OP-M Strength Start: 11/26/17 16:53 Freq: Status: Active Protocol: Document 05/20/18 16:15 DCW (Rec: 05/20/18 16:44 DCW [id number]) Hip Strength Hip Manual Muscle Testing Right Flexion (L2) 4 Good Abduction 4+ Good+ Adduction 5 Normal Left Flexion (L2) 4 Good Abduction 4+ Good+ Adduction 5 Normal Knee Strength Knee Manual Muscle Testing Right Flexion (S2) 4+ Good+ Extension (L3) 5 Normal Left Flexion (S2) 4+ Good+ Extension (L3) 5 Normal Ankle/Foot Strength Ankle and Foot Manual Muscle Testing Right Dorsiflexion (L4) 4+ Good+ Plantarflexion (S1) 3- Fair- Left Dorsiflexion (L4) 4+ Good+ Plantarflexion (S1) 3 Fair PT-OP-Q Treatments Start: 11/19/17 17:22 Freq: Status: Active Protocol: Document 08/05/18 16:00 DCW (Rec: 08/05/18 16:44 DCW [id number]) Cardio Equipment Upper Body Ergometer (UBE) Duration (Minutes) 6 RPM 60 Height 3 Other Forward/Backward Gym Equipment Shuttle Recovery Unilateral Squats Resistance 25# Shuttle Recovery Platform Stable Bilateral Squats Resistance 75# Shuttle Recovery Platform Stable Therapeutic Exercises Sitting Exercises 2 Sitting Exercise Name Hip abduction Side bilateral Resistance Lv 3 Equipment Used T-band 1 Sitting Exercise Name Hamstring Curls Side bilateral Resistance Lv 3 Equipment Used T-band Standing Exercises Hamstring Curls Standing Exercise Name HS curls @ rail Resistance 2# Equipment Used Ankle weights Hip Abduction Standing Exercise Name Abduction @ rail Resistance 2# Equipment Used Ankle weights Marching Standing Exercise Name Marching @ rail Resistance 2# Equipment Used Ankle weights Gait Training Gait Activity 1 Device Used FWW Level of Assistance Mod Ax1 /c w/c follow Surface Level Distance/Duration 20' x4, 10' x4 Treatment Focus Knee extension/quad activation , activity tolerance PT-OP-T Assessment and Plan Start: 11/19/17 17:22 Freq: Status: Active Protocol: Document 08/05/18 16:00 DCW (Rec: 08/05/18 16:44 DCW [id number]) Physical Therapy Assessment Impairments Impairments Activity Tolerance Balance Coordination Functional Activities Functional Mobility Gait Posture ROM Soft Tissue Mobility Strength Tone Transfers Goals Four Impairment Static Standing Balance Carbonizer Tester Goal (LTG) Pt to stand with supervision assistance for 5 seconds without assistive device LTG Duration 08/20/18 Three Impairment Transfers Custodial Goal (LTG) Pt to perform stand-pivot transfer CGA with FWW LTG Duration 08/20/18 Two Impairment Gait Carbonizer Tester Goal (LTG) Pt to ambulate 100' SBA /c FWW LTG Duration 08/20/18 One Impairment LE weakness Carbonizer Tester Goal (LTG) Ankle Plantarflexion to 3/5 bilaterally All remaining planes to 4/5 bilaterally LTG Duration 08/20/18 Progress Towards Goals Progress Towards Goals Slow Progress due to Medical Issues Progress Comments Multiple Sclerosis Assessment Summary Assessment Pt did better today with standing and ambulation compaired to last week, however still struggled more than her usual. Physical Therapy Plan Frequency and Duration Frequency of Treatment 1x/Week Duration of Treatment 3 months Plan of Care Start Date 05/20/18 Plan of Care End Date 08/20/18 Therapeutic Interventions Therapeutic Interventions Aquatic Therapy Gait Training Home Exercise Program Joint Mobilizations Neuromuscular Re-education Patient/Caregiver Education Self-Care/Home Management Therapeutic Activities Therapeutic Exercises Next Visit Focus/Plan Next Note Type Treatment Note Next Visit Plan Gait training, Balance, Activity tolerance, strengthening
--- NOTE | 2018-08-12 16:43 | PT.OTN ---
Current Diagnoses Multiple sclerosis (08/12/18) Muscle weakness (generalized) (08/12/18) Ataxic gait (08/12/18) Unsteadiness on feet (08/12/18) Physical Therapy Treatment Note PT-OP-A Visit Information Start: 11/19/17 17:22 Freq: Status: Active Protocol: Document 08/12/18 16:00 DCW (Rec: 08/12/18 16:43 DCW [id number]) Out-Patient Physical Therapy Visit Information Visit Information Visit Type Treatment Note Visit Start Time 16:00 Visit Stop Time 16:45 Total Visit Minutes 45 Visit Number 73 Number of EARLY CHILDHOOD DIRECTOR Visits 0 Evaluation Information Evaluation Date 02/06/16 PT-OP-B Current Condition Start: 11/26/17 16:53 Freq: Status: Active Protocol: Document 02/11/18 16:00 DCW (Rec: 02/11/18 16:19 DCW [id number]) Current Condition History of Current Condition History of Current Condition See Therapy Source for full patient history Treatment Goals Patient/Caregiver Goals Decrease burden of care Prior Functional Status Baseline Function- ADL's Needs Assist Baseline Function- Mobility Needs Assist Current Functional Impairments (Reported) Functional Limitations- Mobility/Gait Pt ambulates 80' CGA/Min Ax1 / c FWW Pt transfers stand-pivot Min Ax1 for balance and stability PT-OP-C Subjective Start: 11/19/17 17:22 Freq: Status: Active Protocol: Document 08/12/18 16:00 DCW (Rec: 08/12/18 16:43 DCW [id number]) OP-PT Subjective Patient Comments Patient Comments Pt reports she is doing well today, no complaints. PT-OP-D Balance Start: 11/26/17 16:53 Freq: Status: Active Protocol: Document 05/20/18 16:15 DCW (Rec: 05/20/18 16:44 DCW [id number]) OP-PT Balance Assessment Standing Balance Static Standing Balance Ability Fair Dynamic Standing Balance Ability Poor Standing Balance Comments Pt requires Min Ax1 when standing without assistive device for 10 seconds Estrada Fall Scale Copyright Permission Estrada SHER, Estrada RM, Anna SJ. Development of a scale to identify the fall- prone patient. Can J Aging 1989;8;366-7. Elisabeth Dorado (2009). Preventing patient falls. (2nd ed). [place]: [employer]. PT-OP-G Mobility & Gait Start: 11/26/17 16:53 Freq: Status: Active Protocol: Document 05/20/18 16:15 DCW (Rec: 05/20/18 16:44 DCW [id number]) OP Mobility Evaluation Transfers Sit to Stand Min Ax1 /c FWW Bed to Chair Transfers Min Ax1 /c FWW OP Gait Assessment Gait Gait Assistance Required: Minimum Assistance 1 Person Assist Distance (Feet) 35 Assistive Devices Assistive Device Front Wheeled Walker Gait Deviations General Gait Pattern Ataxic Decreased Stride Length Decreased Feet Clearance Wide Based Gait Factors Limiting Gait Function Factors Limiting Gait Function Abnormal Tonal Influences Decreased Sensation Decreased Strength Poor Balance Poor Safety Awareness PT-OP-M Strength Start: 11/26/17 16:53 Freq: Status: Active Protocol: Document 05/20/18 16:15 DCW (Rec: 05/20/18 16:44 DCW [id number]) Hip Strength Hip Manual Muscle Testing Right Flexion (L2) 4 Good Abduction 4+ Good+ Adduction 5 Normal Left Flexion (L2) 4 Good Abduction 4+ Good+ Adduction 5 Normal Knee Strength Knee Manual Muscle Testing Right Flexion (S2) 4+ Good+ Extension (L3) 5 Normal Left Flexion (S2) 4+ Good+ Extension (L3) 5 Normal Ankle/Foot Strength Ankle and Foot Manual Muscle Testing Right Dorsiflexion (L4) 4+ Good+ Plantarflexion (S1) 3- Fair- Left Dorsiflexion (L4) 4+ Good+ Plantarflexion (S1) 3 Fair PT-OP-Q Treatments Start: 11/19/17 17:22 Freq: Status: Active Protocol: Document 08/12/18 16:00 DCW (Rec: 08/12/18 16:43 DCW [id number]) Cardio Equipment Upper Body Ergometer (UBE) Duration (Minutes) 6 RPM 60 Height 3 Other Forward/Backward Gym Equipment Shuttle Recovery Unilateral Squats Resistance 25# Shuttle Recovery Platform Stable Bilateral Squats Resistance 75# Shuttle Recovery Platform Stable Therapeutic Exercises Sitting Exercises 4 Sitting Exercise Name Seated Marching Side bilateral Resistance 5# Equipment Used Ankle weights Standing Exercises Hamstring Curls Standing Exercise Name HS curls @ rail Resistance 2# Equipment Used Ankle weights Hip Abduction Standing Exercise Name Abduction @ rail Resistance 2# Equipment Used Ankle weights Gait Training Gait Activity 1 Device Used FWW Level of Assistance Mod Ax1 /c w/c follow Surface Level Distance/Duration 80' x1 Treatment Focus Knee extension/quad activation , activity tolerance PT-OP-T Assessment and Plan Start: 11/19/17 17:22 Freq: Status: Active Protocol: Document 08/12/18 16:00 DCW (Rec: 08/12/18 16:43 DCW [id number]) Physical Therapy Assessment Impairments Impairments Activity Tolerance Balance Coordination Functional Activities Functional Mobility Gait Posture ROM Soft Tissue Mobility Strength Tone Transfers Goals Four Impairment Static Standing Balance [facility] Goal (LTG) Pt to stand with supervision assistance for 5 seconds without assistive device LTG Duration 08/20/18 Three Impairment Transfers Instrument Lens Grinder Apprentice Goal (LTG) Pt to perform stand-pivot transfer CGA with FWW LTG Duration 08/20/18 Two Impairment Gait [facility] Goal (LTG) Pt to ambulate 100' SBA /c FWW LTG Duration 08/20/18 One Impairment LE weakness Instrument Lens Grinder Apprentice Goal (LTG) Ankle Plantarflexion to 3/5 bilaterally All remaining planes to 4/5 bilaterally LTG Duration 08/20/18 Progress Towards Goals Progress Towards Goals Slow Progress due to Medical Issues Progress Comments Multiple Sclerosis Assessment Summary Assessment Pt madiha today's session walking very well from the waiting room to the UBE, however following that she was unable to walk any further than a few steps at a time. Physical Therapy Plan Frequency and Duration Frequency of Treatment 1x/Week Duration of Treatment 3 months Plan of Care Start Date 05/20/18 Plan of Care End Date 08/20/18 Therapeutic Interventions Therapeutic Interventions Aquatic Therapy Gait Training Home Exercise Program Joint Mobilizations Neuromuscular Re-education Patient/Caregiver Education Self-Care/Home Management Therapeutic Activities Therapeutic Exercises Next Visit Focus/Plan Next Note Type Treatment Note Next Visit Plan Gait training, Balance, Activity tolerance, strengthening
--- NOTE | 2018-08-19 16:52 | PT.OTN ---
Current Diagnoses Multiple sclerosis (08/19/18) Muscle weakness (generalized) (08/19/18) Ataxic gait (08/19/18) Unsteadiness on feet (08/19/18) Physical Therapy Treatment Note PT-OP-A Visit Information Start: 11/19/17 17:22 Freq: Status: Active Protocol: Document 08/19/18 16:05 DCW (Rec: 08/19/18 16:52 DCW [id number]) Out-Patient Physical Therapy Visit Information Visit Information Visit Type Progress Note Visit Note 5 minutes late Visit Start Time 16:05 Visit Stop Time 16:45 Total Visit Minutes 40 Visit Number 79 Evaluation Information Evaluation Date 02/06/16 PT-OP-B Current Condition Start: 11/26/17 16:53 Freq: Status: Active Protocol: Document 02/11/18 16:00 DCW (Rec: 02/11/18 16:19 DCW [id number]) Current Condition History of Current Condition History of Current Condition See Therapy Source for full patient history Treatment Goals Patient/Caregiver Goals Decrease burden of care Prior Functional Status Baseline Function- ADL's Needs Assist Baseline Function- Mobility Needs Assist Current Functional Impairments (Reported) Functional Limitations- Mobility/Gait Pt ambulates 80' CGA/Min Ax1 / c FWW Pt transfers stand-pivot Min Ax1 for balance and stability PT-OP-C Subjective Start: 11/19/17 17:22 Freq: Status: Active Protocol: Document 08/19/18 16:05 DCW (Rec: 08/19/18 16:52 DCW [id number]) OP-PT Subjective Patient Comments Patient Comments Pt notes she is cold, but is doing well. PT-OP-D Balance Start: 11/26/17 16:53 Freq: Status: Active Protocol: Document 08/19/18 16:05 DCW (Rec: 08/19/18 16:22 DCW [id number]) OP-PT Balance Assessment Standing Balance Static Standing Balance Ability Fair Dynamic Standing Balance Ability Poor Standing Balance Comments Pt requires Mod Ax1 when standing without assistive device for 5 seconds Estrada Fall Scale Copyright Permission Estrada SHER, Estrada RM, Anna SJ. Development of a scale to identify the fall- prone patient. Can J Aging 1989;8;366-7. Elisabeth Dorado (2009). Preventing patient falls. (2nd ed). [place]: [employer]. PT-OP-G Mobility & Gait Start: 11/26/17 16:53 Freq: Status: Active Protocol: Document 08/19/18 16:05 DCW (Rec: 08/19/18 16:22 DCW [id number]) OP Mobility Evaluation Transfers Sit to Stand Min Ax1 /c FWW Bed to Chair Transfers Min Ax1 /c FWW OP Gait Assessment Gait Gait Assistance Required: Minimum Assistance 1 Person Assist Distance (Feet) 85 Assistive Devices Assistive Device Front Wheeled Walker Gait Deviations General Gait Pattern Ataxic Decreased Stride Length Decreased Feet Clearance Wide Based Gait Factors Limiting Gait Function Factors Limiting Gait Function Abnormal Tonal Influences Decreased Sensation Decreased Strength Poor Balance Poor Safety Awareness PT-OP-M Strength Start: 11/26/17 16:53 Freq: Status: Active Protocol: Document 08/19/18 16:05 DCW (Rec: 08/19/18 16:22 DCW [id number]) Hip Strength Hip Manual Muscle Testing Right Flexion (L2) 4 Good Abduction 4+ Good+ Adduction 5 Normal Left Flexion (L2) 4 Good Abduction 4+ Good+ Adduction 5 Normal Knee Strength Knee Manual Muscle Testing Right Flexion (S2) 4+ Good+ Extension (L3) 5 Normal Left Flexion (S2) 4+ Good+ Extension (L3) 5 Normal Ankle/Foot Strength Ankle and Foot Manual Muscle Testing Right Dorsiflexion (L4) 4+ Good+ Plantarflexion (S1) 3- Fair- Left Dorsiflexion (L4) 4+ Good+ Plantarflexion (S1) 3 Fair PT-OP-Q Treatments Start: 11/19/17 17:22 Freq: Status: Active Protocol: Document 08/19/18 16:05 DCW (Rec: 08/19/18 16:52 DCW [id number]) Cardio Equipment Upper Body Ergometer (UBE) Duration (Minutes) 6 RPM 60 Height 3 Other Forward/Backward Therapeutic Exercises Standing Exercises Hamstring Curls Standing Exercise Name HS curls @ rail Resistance 5# Equipment Used Ankle weights Hip Abduction Standing Exercise Name Abduction @ rail Resistance 5# Equipment Used Ankle weights Marching Standing Exercise Name Marching @ rail Resistance 5# Equipment Used Ankle weights Gait Training Gait Activity 1 Device Used FWW Level of Assistance Mod Ax1 /c w/c follow Surface Level Distance/Duration 85' x1, 20' x2 Treatment Focus Knee extension/quad activation , activity tolerance Neuro Re-Education Treatment Coordination Activities 1 Details Cone activities Equipment Cones Speed 5# ankle weight Reps/Duration 10 Comments Using feet to knock over cones for coordination training/ neuromuscular re-education PT-OP-T Assessment and Plan Start: 11/19/17 17:22 Freq: Status: Active Protocol: Document 08/19/18 16:05 DCW (Rec: 08/19/18 16:52 DCW [id number]) Physical Therapy Assessment Impairments Impairments Activity Tolerance Balance Coordination Functional Activities Functional Mobility Gait Posture ROM Soft Tissue Mobility Strength Tone Transfers Goals Four Impairment Static Standing Balance Metal Neutralizer Goal (LTG) Pt to stand with supervision assistance for 5 seconds without assistive device LTG Duration 11/16/18 Three Impairment Transfers Prison Goal (LTG) Pt to perform stand-pivot transfer CGA with FWW LTG Duration 11/16/18 Two Impairment Gait Metal Neutralizer Goal (LTG) Pt to ambulate 100' SBA /c FWW LTG Duration 11/16/18 One Impairment LE weakness Metal Neutralizer Goal (LTG) Ankle Plantarflexion to 3/5 bilaterally All remaining planes to 4/5 bilaterally LTG Duration 11/16/18 Progress Towards Goals Progress Towards Goals Slow Progress due to Medical Issues Progress Comments Multiple Sclerosis Assessment Summary Assessment Pt did better today than she has the past few visits, but has not made any progress toward her goals. While this may just demonstrate her current plateau level due to her Multiple Sclerosis, she is beginning to get frustrated at the lack of progress. Continued skilled therapy may assist in maintaining current function or limit progression of secondary symptoms. Physical Therapy Plan Frequency and Duration Frequency of Treatment 1x/Week Duration of Treatment 3 months Plan of Care Start Date 08/19/18 Plan of Care End Date 11/16/18 Therapeutic Interventions Therapeutic Interventions Aquatic Therapy Gait Training Home Exercise Program Joint Mobilizations Neuromuscular Re-education Patient/Caregiver Education Self-Care/Home Management Therapeutic Activities Therapeutic Exercises Next Visit Focus/Plan Next Note Type Treatment Note Next Visit Plan Gait training, Balance, Activity tolerance, strengthening
--- NOTE | 2018-08-19 16:54 | PT.OPPOC ---
Current Diagnoses Multiple sclerosis (08/19/18) Muscle weakness (generalized) (08/19/18) Ataxic gait (08/19/18) Unsteadiness on feet (08/19/18) Provider Visit Care Team Role Provider Type Dariana Stratton DO Attending Provider Physician Family Provider Primary Care Provider Specialty: Family Practice Address: [address] [place] [id number] Email: [email or web address] Plan Of Care PT-OP-T Assessment and Plan Start: 11/19/17 17:22 Freq: Status: Active Protocol: Document 08/19/18 16:05 DCW (Rec: 08/19/18 16:52 DCW [id number]) Physical Therapy Assessment Impairments Impairments Activity Tolerance Balance Coordination Functional Activities Functional Mobility Gait Posture ROM Soft Tissue Mobility Strength Tone Transfers Goals Four Impairment Static Standing Balance Residential Goal (LTG) Pt to stand with supervision assistance for 5 seconds without assistive device LTG Duration 11/16/18 Three Impairment Transfers Residential Goal (LTG) Pt to perform stand-pivot transfer CGA with FWW LTG Duration 11/16/18 Two Impairment Gait Residential Goal (LTG) Pt to ambulate 100' SBA /c FWW LTG Duration 11/16/18 One Impairment LE weakness Residential Goal (LTG) Ankle Plantarflexion to 3/5 bilaterally All remaining planes to 4/5 bilaterally LTG Duration 11/16/18 Progress Towards Goals Progress Towards Goals Slow Progress due to Medical Issues Progress Comments Multiple Sclerosis Assessment Summary Assessment Pt did better today than she has the past few visits, but has not made any progress toward her goals. While this may just demonstrate her current plateau level due to her Multiple Sclerosis, she is beginning to get frustrated at the lack of progress. Continued skilled therapy may assist in maintaining current function or limit progression of secondary symptoms. Physical Therapy Plan Frequency and Duration Frequency of Treatment 1x/Week Duration of Treatment 3 months Plan of Care Start Date 08/19/18 Plan of Care End Date 11/16/18 Therapeutic Interventions Therapeutic Interventions Aquatic Therapy Gait Training Home Exercise Program Joint Mobilizations Neuromuscular Re-education Patient/Caregiver Education Self-Care/Home Management Therapeutic Activities Therapeutic Exercises Next Visit Focus/Plan Next Note Type Treatment Note Next Visit Plan Gait training, Balance, Activity tolerance, strengthening Plan of Care Dates Plan of Care Start Date 08/19/18 Plan of Care End Date 11/16/18 Please Sign and Return: I have reviewed this Plan of Care and certify that the skilled therapy services above are required to meet the patient?s needs. Physician Signature Date Printed Name and Credentials Clinical Instructor Signature Printed Name and Credentials
--- NOTE | 2018-09-02 16:42 | PT.OTN ---
Current Diagnoses Multiple sclerosis (09/02/18) Muscle weakness (generalized) (09/02/18) Ataxic gait (09/02/18) Unsteadiness on feet (09/02/18) Physical Therapy Treatment Note PT-OP-A Visit Information Start: 11/19/17 17:22 Freq: Status: Active Protocol: Document 09/02/18 16:07 DCW (Rec: 09/02/18 16:42 DCW [id number]) Out-Patient Physical Therapy Visit Information Visit Information Visit Type Treatment Note Visit Note 7 minutes late Visit Start Time 16:05 Visit Stop Time 16:45 Total Visit Minutes 38 Visit Number 80 Evaluation Information Evaluation Date 02/06/16 PT-OP-B Current Condition Start: 11/26/17 16:53 Freq: Status: Active Protocol: Document 02/11/18 16:00 DCW (Rec: 02/11/18 16:19 DCW [id number]) Current Condition History of Current Condition History of Current Condition See Therapy Source for full patient history Treatment Goals Patient/Caregiver Goals Decrease burden of care Prior Functional Status Baseline Function- ADL's Needs Assist Baseline Function- Mobility Needs Assist Current Functional Impairments (Reported) Functional Limitations- Mobility/Gait Pt ambulates 80' CGA/Min Ax1 / c FWW Pt transfers stand-pivot Min Ax1 for balance and stability PT-OP-C Subjective Start: 11/19/17 17:22 Freq: Status: Active Protocol: Document 09/02/18 16:07 DCW (Rec: 09/02/18 16:42 DCW [id number]) OP-PT Subjective Patient Comments Patient Comments Pt admits that she is feeling weak today. [id number] reports that when he picked her up from her [facility], she was retirement out of her recliner, and they had a very difficult time transferring her into the wheelchair. PT-OP-D Balance Start: 11/26/17 16:53 Freq: Status: Active Protocol: Document 08/19/18 16:05 DCW (Rec: 08/19/18 16:22 DCW [id number]) OP-PT Balance Assessment Standing Balance Static Standing Balance Ability Fair Dynamic Standing Balance Ability Poor Standing Balance Comments Pt requires Mod Ax1 when standing without assistive device for 5 seconds Dorado Fall Scale Copyright Permission Estrada SHER, Estrada RM, Anna SJ. Development of a scale to identify the fall- prone patient. Can J Aging 1989;8;366-7. Elisabeth Dorado (2009). Preventing patient falls. (2nd ed). [place]: Smalls. PT-OP-G Mobility & Gait Start: 11/26/17 16:53 Freq: Status: Active Protocol: Document 08/19/18 16:05 DCW (Rec: 08/19/18 16:22 DCW [id number]) OP Mobility Evaluation Transfers Sit to Stand Min Ax1 /c FWW Bed to Chair Transfers Min Ax1 /c FWW OP Gait Assessment Gait Gait Assistance Required: Minimum Assistance 1 Person Assist Distance (Feet) 85 Assistive Devices Assistive Device Front Wheeled Walker Gait Deviations General Gait Pattern Ataxic Decreased Stride Length Decreased Feet Clearance Wide Based Gait Factors Limiting Gait Function Factors Limiting Gait Function Abnormal Tonal Influences Decreased Sensation Decreased Strength Poor Balance Poor Safety Awareness PT-OP-M Strength Start: 11/26/17 16:53 Freq: Status: Active Protocol: Document 08/19/18 16:05 DCW (Rec: 08/19/18 16:22 DCW [id number]) Hip Strength Hip Manual Muscle Testing Right Flexion (L2) 4 Good Abduction 4+ Good+ Adduction 5 Normal Left Flexion (L2) 4 Good Abduction 4+ Good+ Adduction 5 Normal Knee Strength Knee Manual Muscle Testing Right Flexion (S2) 4+ Good+ Extension (L3) 5 Normal Left Flexion (S2) 4+ Good+ Extension (L3) 5 Normal Ankle/Foot Strength Ankle and Foot Manual Muscle Testing Right Dorsiflexion (L4) 4+ Good+ Plantarflexion (S1) 3- Fair- Left Dorsiflexion (L4) 4+ Good+ Plantarflexion (S1) 3 Fair PT-OP-Q Treatments Start: 11/19/17 17:22 Freq: Status: Active Protocol: Document 09/02/18 16:07 DCW (Rec: 09/02/18 16:42 DCW [id number]) Therapeutic Exercises Sitting Exercises 4 Sitting Exercise Name Seated Marching Side bilateral Resistance 5# Equipment Used Ankle weights 3 Sitting Exercise Name LAQ Side bilateral Resistance 5# Equipment Used Ankle weights 2 Sitting Exercise Name Hip abduction Side bilateral Resistance Lv 3 Equipment Used T-band 1 Sitting Exercise Name Hamstring Curls Side bilateral Resistance Lv 3 Equipment Used T-band Therapeutic Activity Therapeutic Activity 1 Name Stand-pivot transfers Reps/Minutes x6 Comments Poor sequencing, pt lunged for chair instead of turning. Gait Training Gait Activity 1 Device Used FWW Level of Assistance Mod Ax1 /c w/c follow Surface Level Distance/Duration 5' x15 Treatment Focus Knee extension/quad activation , activity tolerance PT-OP-T Assessment and Plan Start: 11/19/17 17:22 Freq: Status: Active Protocol: Document 09/02/18 16:07 DCW (Rec: 09/02/18 16:42 DCW [id number]) Physical Therapy Assessment Impairments Impairments Activity Tolerance Balance Coordination Functional Activities Functional Mobility Gait Posture ROM Soft Tissue Mobility Strength Tone Transfers Goals Four Impairment Static Standing Balance Mcc Goal (LTG) Pt to stand with supervision assistance for 5 seconds without assistive device LTG Duration 11/16/18 Three Impairment Transfers Parts Cleaner Goal (LTG) Pt to perform stand-pivot transfer CGA with FWW LTG Duration 11/16/18 Two Impairment Gait Parts Cleaner Goal (LTG) Pt to ambulate 100' SBA /c FWW LTG Duration 11/16/18 One Impairment LE weakness Mcc Goal (LTG) Ankle Plantarflexion to 3/5 bilaterally All remaining planes to 4/5 bilaterally LTG Duration 11/16/18 Progress Towards Goals Progress Towards Goals Slow Progress due to Medical Issues Progress Comments Multiple Sclerosis Assessment Summary Assessment Pt ambulated very poorly today , almost immediately upon arrival, reported she was ready to just give up and wanted to ride into the gym with her w/c. Eventually agreeable to trying more ambulation, however required seated rest break approximately every five feet. Pt also displayed very poor transfers, required constant verbal cues and increased assistance to perform. Physical Therapy Plan Frequency and Duration Frequency of Treatment 1x/Week Duration of Treatment 3 months Plan of Care Start Date 08/19/18 Plan of Care End Date 11/16/18 Therapeutic Interventions Therapeutic Interventions Aquatic Therapy Gait Training Home Exercise Program Joint Mobilizations Neuromuscular Re-education Patient/Caregiver Education Self-Care/Home Management Therapeutic Activities Therapeutic Exercises Next Visit Focus/Plan Next Note Type Treatment Note Next Visit Plan Gait training, Balance, Activity tolerance, strengthening
--- NOTE | 2018-09-09 16:45 | PT.OTN ---
Current Diagnoses Multiple sclerosis (09/09/18) Muscle weakness (generalized) (09/09/18) Ataxic gait (09/09/18) Unsteadiness on feet (09/09/18) Physical Therapy Treatment Note PT-OP-A Visit Information Start: 11/19/17 17:22 Freq: Status: Active Protocol: Document 09/09/18 16:00 DCW (Rec: 09/09/18 16:44 DCW [id number]) Out-Patient Physical Therapy Visit Information Visit Information Visit Type Treatment Note Visit Start Time 16:00 Visit Stop Time 16:45 Total Visit Minutes 45 Visit Number 81 Number of FILLING STATION LABORER Visits 0 Evaluation Information Evaluation Date 02/06/16 PT-OP-B Current Condition Start: 11/26/17 16:53 Freq: Status: Active Protocol: Document 02/11/18 16:00 DCW (Rec: 02/11/18 16:19 DCW [id number]) Current Condition History of Current Condition History of Current Condition See Therapy Source for full patient history Treatment Goals Patient/Caregiver Goals Decrease burden of care Prior Functional Status Baseline Function- ADL's Needs Assist Baseline Function- Mobility Needs Assist Current Functional Impairments (Reported) Functional Limitations- Mobility/Gait Pt ambulates 80' CGA/Min Ax1 / c FWW Pt transfers stand-pivot Min Ax1 for balance and stability PT-OP-C Subjective Start: 11/19/17 17:22 Freq: Status: Active Protocol: Document 09/09/18 16:00 DCW (Rec: 09/09/18 16:44 DCW [id number]) OP-PT Subjective Patient Comments Patient Comments Pt reports that she doesn't know how she is feeling today . PT-OP-D Balance Start: 11/26/17 16:53 Freq: Status: Active Protocol: Document 08/19/18 16:05 DCW (Rec: 08/19/18 16:22 DCW [id number]) OP-PT Balance Assessment Standing Balance Static Standing Balance Ability Fair Dynamic Standing Balance Ability Poor Standing Balance Comments Pt requires Mod Ax1 when standing without assistive device for 5 seconds Dorado Fall Scale Copyright Permission Estrada SHER, Estrada RM, Anna SJ. Development of a scale to identify the fall- prone patient. Can J Aging 1989;8;366-7. Elisabeth Dorado (2009). Preventing patient falls. (2nd ed). [place]: [employer]. PT-OP-G Mobility & Gait Start: 11/26/17 16:53 Freq: Status: Active Protocol: Document 08/19/18 16:05 DCW (Rec: 08/19/18 16:22 DCW [id number]) OP Mobility Evaluation Transfers Sit to Stand Min Ax1 /c FWW Bed to Chair Transfers Min Ax1 /c FWW OP Gait Assessment Gait Gait Assistance Required: Minimum Assistance 1 Person Assist Distance (Feet) 85 Assistive Devices Assistive Device Front Wheeled Walker Gait Deviations General Gait Pattern Ataxic Decreased Stride Length Decreased Feet Clearance Wide Based Gait Factors Limiting Gait Function Factors Limiting Gait Function Abnormal Tonal Influences Decreased Sensation Decreased Strength Poor Balance Poor Safety Awareness PT-OP-M Strength Start: 11/26/17 16:53 Freq: Status: Active Protocol: Document 08/19/18 16:05 DCW (Rec: 08/19/18 16:22 DCW [id number]) Hip Strength Hip Manual Muscle Testing Right Flexion (L2) 4 Good Abduction 4+ Good+ Adduction 5 Normal Left Flexion (L2) 4 Good Abduction 4+ Good+ Adduction 5 Normal Knee Strength Knee Manual Muscle Testing Right Flexion (S2) 4+ Good+ Extension (L3) 5 Normal Left Flexion (S2) 4+ Good+ Extension (L3) 5 Normal Ankle/Foot Strength Ankle and Foot Manual Muscle Testing Right Dorsiflexion (L4) 4+ Good+ Plantarflexion (S1) 3- Fair- Left Dorsiflexion (L4) 4+ Good+ Plantarflexion (S1) 3 Fair PT-OP-Q Treatments Start: 11/19/17 17:22 Freq: Status: Active Protocol: Document 09/09/18 16:00 DCW (Rec: 09/09/18 16:44 DCW [id number]) Cardio Equipment Upper Body Ergometer (UBE) Duration (Minutes) 6 RPM 60 Height 3 Other Forward/Backward Gym Equipment Shuttle Recovery Unilateral Squats Resistance 25# Shuttle Recovery Platform Stable Bilateral Squats Resistance 62# Shuttle Recovery Platform Stable Therapeutic Exercises Sitting Exercises 4 Sitting Exercise Name Seated Marching Side bilateral Resistance 5# Equipment Used Ankle weights 3 Sitting Exercise Name LAQ Side bilateral Resistance 5# Equipment Used Ankle weights 2 Sitting Exercise Name Hip abduction Side bilateral Resistance Lv 3 Equipment Used T-band 1 Sitting Exercise Name Hamstring Curls Side bilateral Resistance Lv 3 Equipment Used T-band Gait Training Gait Activity 1 Device Used FWW Level of Assistance Mod Ax1 /c w/c follow Surface Level Distance/Duration 20' x1, 10' x5 Treatment Focus Knee extension/quad activation , activity tolerance PT-OP-T Assessment and Plan Start: 11/19/17 17:22 Freq: Status: Active Protocol: Document 09/09/18 16:00 DCW (Rec: 09/09/18 16:44 DCW [id number]) Physical Therapy Assessment Impairments Impairments Activity Tolerance Balance Coordination Functional Activities Functional Mobility Gait Posture ROM Soft Tissue Mobility Strength Tone Transfers Goals Four Impairment Static Standing Balance Milk Processing Worker Goal (LTG) Pt to stand with supervision assistance for 5 seconds without assistive device LTG Duration 11/16/18 Three Impairment Transfers Milk Processing Worker Goal (LTG) Pt to perform stand-pivot transfer CGA with FWW LTG Duration 11/16/18 Two Impairment Gait Milk Processing Worker Goal (LTG) Pt to ambulate 100' SBA /c FWW LTG Duration 11/16/18 One Impairment LE weakness Milk Processing Worker Goal (LTG) Ankle Plantarflexion to 3/5 bilaterally All remaining planes to 4/5 bilaterally LTG Duration 11/16/18 Progress Towards Goals Progress Towards Goals Slow Progress due to Medical Issues Progress Comments Multiple Sclerosis Assessment Summary Assessment Pt displayed significant improvement in her standing and walking abililty, able to keep her knees straight without buckling, however she still was only willing to walk ~10' each time before trying to sit in her w/c. When this was pointed out to her, her response was simply yeah, I know. Pt decreased motivation recently has been her biggest restriction in PT participation. Physical Therapy Plan Frequency and Duration Frequency of Treatment 1x/Week Duration of Treatment 3 months Plan of Care Start Date 08/19/18 Plan of Care End Date 11/16/18 Therapeutic Interventions Therapeutic Interventions Aquatic Therapy Gait Training Home Exercise Program Joint Mobilizations Neuromuscular Re-education Patient/Caregiver Education Self-Care/Home Management Therapeutic Activities Therapeutic Exercises Next Visit Focus/Plan Next Note Type Treatment Note Next Visit Plan Gait training, Balance, Activity tolerance, strengthening
--- NOTE | 2018-09-30 16:04 | PT.OTN ---
Current Diagnoses Multiple sclerosis (09/30/18) Muscle weakness (generalized) (09/30/18) Ataxic gait (09/30/18) Unsteadiness on feet (09/30/18) Physical Therapy Treatment Note PT-OP-A Visit Information Start: 11/19/17 17:22 Freq: Status: Active Protocol: Document 09/30/18 15:15 DCW (Rec: 09/30/18 16:04 DCW [id number]) Out-Patient Physical Therapy Visit Information Visit Information Visit Type Treatment Note Visit Start Time 15:15 Visit Stop Time 16:00 Total Visit Minutes 45 Visit Number 82 Number of PERSONAL INJURY LAW SPECIALIST Visits 0 Evaluation Information Evaluation Date 02/06/16 PT-OP-B Current Condition Start: 11/26/17 16:53 Freq: Status: Active Protocol: Document 02/11/18 16:00 DCW (Rec: 02/11/18 16:19 DCW [id number]) Current Condition History of Current Condition History of Current Condition See Therapy Source for full patient history Treatment Goals Patient/Caregiver Goals Decrease burden of care Prior Functional Status Baseline Function- ADL's Needs Assist Baseline Function- Mobility Needs Assist Current Functional Impairments (Reported) Functional Limitations- Mobility/Gait Pt ambulates 80' CGA/Min Ax1 / c FWW Pt transfers stand-pivot Min Ax1 for balance and stability PT-OP-C Subjective Start: 11/19/17 17:22 Freq: Status: Active Protocol: Document 09/30/18 15:15 DCW (Rec: 09/30/18 16:04 DCW [id number]) OP-PT Subjective Patient Comments Patient Comments Pt arrives today with bruising around her eyes and her forehead after a fall from her bed and hitting her face on the sidetable. This occurred after she moved to a new facility, and she is still not used to the size of her bed. Pt is now living at [facility]. PT-OP-D Balance Start: 11/26/17 16:53 Freq: Status: Active Protocol: Document 08/19/18 16:05 DCW (Rec: 08/19/18 16:22 DCW [id number]) OP-PT Balance Assessment Standing Balance Static Standing Balance Ability Fair Dynamic Standing Balance Ability Poor Standing Balance Comments Pt requires Mod Ax1 when standing without assistive device for 5 seconds Dorado Fall Scale Copyright Permission Estrada SHER, Estrada RM, Anna SJ. Development of a scale to identify the fall- prone patient. Can J Aging 1989;8;366-7. Elisabeth Dorado (2009). Preventing patient falls. (2nd ed). [place]: [place]. PT-OP-G Mobility & Gait Start: 11/26/17 16:53 Freq: Status: Active Protocol: Document 08/19/18 16:05 DCW (Rec: 08/19/18 16:22 DCW [id number]) OP Mobility Evaluation Transfers Sit to Stand Min Ax1 /c FWW Bed to Chair Transfers Min Ax1 /c FWW OP Gait Assessment Gait Gait Assistance Required: Minimum Assistance 1 Person Assist Distance (Feet) 85 Assistive Devices Assistive Device Front Wheeled Walker Gait Deviations General Gait Pattern Ataxic Decreased Stride Length Decreased Feet Clearance Wide Based Gait Factors Limiting Gait Function Factors Limiting Gait Function Abnormal Tonal Influences Decreased Sensation Decreased Strength Poor Balance Poor Safety Awareness PT-OP-M Strength Start: 11/26/17 16:53 Freq: Status: Active Protocol: Document 08/19/18 16:05 DCW (Rec: 08/19/18 16:22 DCW [id number]) Hip Strength Hip Manual Muscle Testing Right Flexion (L2) 4 Good Abduction 4+ Good+ Adduction 5 Normal Left Flexion (L2) 4 Good Abduction 4+ Good+ Adduction 5 Normal Knee Strength Knee Manual Muscle Testing Right Flexion (S2) 4+ Good+ Extension (L3) 5 Normal Left Flexion (S2) 4+ Good+ Extension (L3) 5 Normal Ankle/Foot Strength Ankle and Foot Manual Muscle Testing Right Dorsiflexion (L4) 4+ Good+ Plantarflexion (S1) 3- Fair- Left Dorsiflexion (L4) 4+ Good+ Plantarflexion (S1) 3 Fair PT-OP-Q Treatments Start: 11/19/17 17:22 Freq: Status: Active Protocol: Document 09/30/18 15:15 DCW (Rec: 09/30/18 16:04 DCW [id number]) Cardio Equipment Upper Body Ergometer (UBE) Duration (Minutes) 6 RPM 60 Height 3 Other Forward/Backward Gym Equipment Shuttle Recovery Unilateral Squats Resistance 37# Shuttle Recovery Platform Stable Bilateral Squats Resistance 75# Shuttle Recovery Platform Stable Therapeutic Ball 1 Exercise Details Hip Abduction/Adduction Ball Size/Color Red - 55 cm Lv 3 T-band Body Position Sitting Comments Foot on ball Therapeutic Exercises Sitting Exercises 4 Sitting Exercise Name Seated Marching Side bilateral Resistance 5# Equipment Used Ankle weights 3 Sitting Exercise Name LAQ Side bilateral Resistance 5# Equipment Used Ankle weights 2 Sitting Exercise Name Hip abduction Side bilateral Resistance Lv 3 Equipment Used T-band 1 Sitting Exercise Name Hamstring Curls Side bilateral Resistance Lv 3 Equipment Used T-band Standing Exercises Squats Standing Exercise Name Squats @ rail Gait Training Gait Activity 1 Device Used FWW Level of Assistance Mod Ax1 /c w/c follow Surface Level Distance/Duration 80' x1, 20' x2 Treatment Focus Knee extension/quad activation , activity tolerance PT-OP-T Assessment and Plan Start: 11/19/17 17:22 Freq: Status: Active Protocol: Document 09/30/18 15:15 DCW (Rec: 09/30/18 16:04 DCW [id number]) Physical Therapy Assessment Impairments Impairments Activity Tolerance Balance Coordination Functional Activities Functional Mobility Gait Posture ROM Soft Tissue Mobility Strength Tone Transfers Goals Four Impairment Static Standing Balance Radio Mechanic Goal (LTG) Pt to stand with supervision assistance for 5 seconds without assistive device LTG Duration 11/16/18 Three Impairment Transfers Penitentiary Goal (LTG) Pt to perform stand-pivot transfer CGA with FWW LTG Duration 11/16/18 Two Impairment Gait Radio Mechanic Goal (LTG) Pt to ambulate 100' SBA /c FWW LTG Duration 11/16/18 One Impairment LE weakness Radio Mechanic Goal (LTG) Ankle Plantarflexion to 3/5 bilaterally All remaining planes to 4/5 bilaterally LTG Duration 11/16/18 Progress Towards Goals Progress Towards Goals Slow Progress due to Medical Issues Progress Comments Multiple Sclerosis Assessment Summary Assessment Pt improved today, increased tolerance for gait, transfers, and TherEx. Physical Therapy Plan Frequency and Duration Frequency of Treatment 1x/Week Duration of Treatment 3 months Plan of Care Start Date 08/19/18 Plan of Care End Date 11/16/18 Therapeutic Interventions Therapeutic Interventions Aquatic Therapy Gait Training Home Exercise Program Joint Mobilizations Neuromuscular Re-education Patient/Caregiver Education Self-Care/Home Management Therapeutic Activities Therapeutic Exercises Next Visit Focus/Plan Next Note Type Treatment Note Next Visit Plan Gait training, Balance, Activity tolerance, strengthening
--- NOTE | 2018-10-07 16:02 | PT.OTN ---
Current Diagnoses Multiple sclerosis (10/07/18) Muscle weakness (generalized) (10/07/18) Ataxic gait (10/07/18) Unsteadiness on feet (10/07/18) Physical Therapy Treatment Note PT-OP-A Visit Information Start: 11/19/17 17:22 Freq: Status: Active Protocol: Document 10/07/18 15:15 DCW (Rec: 10/07/18 16:02 DCW [id number]) Out-Patient Physical Therapy Visit Information Visit Information Visit Type Treatment Note Visit Start Time 15:15 Visit Stop Time 16:00 Total Visit Minutes 45 Visit Number 83 Number of FILLING LAYER UP Visits 0 Evaluation Information Evaluation Date 02/06/16 PT-OP-B Current Condition Start: 11/26/17 16:53 Freq: Status: Active Protocol: Document 02/11/18 16:00 DCW (Rec: 02/11/18 16:19 DCW [id number]) Current Condition History of Current Condition History of Current Condition See Therapy Source for full patient history Treatment Goals Patient/Caregiver Goals Decrease burden of care Prior Functional Status Baseline Function- ADL's Needs Assist Baseline Function- Mobility Needs Assist Current Functional Impairments (Reported) Functional Limitations- Mobility/Gait Pt ambulates 80' CGA/Min Ax1 / c FWW Pt transfers stand-pivot Min Ax1 for balance and stability PT-OP-C Subjective Start: 11/19/17 17:22 Freq: Status: Active Protocol: Document 10/07/18 15:15 DCW (Rec: 10/07/18 16:02 DCW [id number]) OP-PT Subjective Patient Comments Patient Comments Pt bruising is improving, pt reports she is settling into her new living quarters at [facility] PT-OP-D Balance Start: 11/26/17 16:53 Freq: Status: Active Protocol: Document 08/19/18 16:05 DCW (Rec: 08/19/18 16:22 DCW [id number]) OP-PT Balance Assessment Standing Balance Static Standing Balance Ability Fair Dynamic Standing Balance Ability Poor Standing Balance Comments Pt requires Mod Ax1 when standing without assistive device for 5 seconds Estrada Fall Scale Copyright Permission Estrada SHER, Estrada RM, Anna SJ. Development of a scale to identify the fall- prone patient. Can J Aging 1989;8;366-7. Elisabeth Dorado (2009). Preventing patient falls. (2nd ed). [place]: [place]alls. PT-OP-G Mobility & Gait Start: 11/26/17 16:53 Freq: Status: Active Protocol: Document 08/19/18 16:05 DCW (Rec: 08/19/18 16:22 DCW [id number]) OP Mobility Evaluation Transfers Sit to Stand Min Ax1 /c FWW Bed to Chair Transfers Min Ax1 /c FWW OP Gait Assessment Gait Gait Assistance Required: Minimum Assistance 1 Person Assist Distance (Feet) 85 Assistive Devices Assistive Device Front Wheeled Walker Gait Deviations General Gait Pattern Ataxic Decreased Stride Length Decreased Feet Clearance Wide Based Gait Factors Limiting Gait Function Factors Limiting Gait Function Abnormal Tonal Influences Decreased Sensation Decreased Strength Poor Balance Poor Safety Awareness PT-OP-M Strength Start: 11/26/17 16:53 Freq: Status: Active Protocol: Document 08/19/18 16:05 DCW (Rec: 08/19/18 16:22 DCW [id number]) Hip Strength Hip Manual Muscle Testing Right Flexion (L2) 4 Good Abduction 4+ Good+ Adduction 5 Normal Left Flexion (L2) 4 Good Abduction 4+ Good+ Adduction 5 Normal Knee Strength Knee Manual Muscle Testing Right Flexion (S2) 4+ Good+ Extension (L3) 5 Normal Left Flexion (S2) 4+ Good+ Extension (L3) 5 Normal Ankle/Foot Strength Ankle and Foot Manual Muscle Testing Right Dorsiflexion (L4) 4+ Good+ Plantarflexion (S1) 3- Fair- Left Dorsiflexion (L4) 4+ Good+ Plantarflexion (S1) 3 Fair PT-OP-Q Treatments Start: 11/19/17 17:22 Freq: Status: Active Protocol: Document 10/07/18 15:15 DCW (Rec: 10/07/18 16:02 DCW [id number]) Cardio Equipment Upper Body Ergometer (UBE) Duration (Minutes) 6 RPM 60 Height 3 Other Forward/Backward Gym Equipment Shuttle Recovery Unilateral Squats Resistance 37# Shuttle Recovery Platform Stable Bilateral Squats Resistance 75# Shuttle Recovery Platform Stable Therapeutic Ball 1 Exercise Details Hip Abduction/Adduction Ball Size/Color Red - 55 cm Lv 3 T-band Body Position Sitting Comments Foot on ball Gait Training Gait Activity 1 Device Used FWW Level of Assistance Mod Ax1 /c w/c follow Surface Level Distance/Duration 10' x10 Treatment Focus Knee extension/quad activation , activity tolerance Neuro Re-Education Treatment Coordination Activities 1 Details Cone activities Equipment Cones Speed 5# ankle weight Comments Using feet to knock over cones for coordination training/ neuromuscular re-education PT-OP-T Assessment and Plan Start: 11/19/17 17:22 Freq: Status: Active Protocol: Document 10/07/18 15:15 DCW (Rec: 10/07/18 16:02 DCW [id number]) Physical Therapy Assessment Impairments Impairments Activity Tolerance Balance Coordination Functional Activities Functional Mobility Gait Posture ROM Soft Tissue Mobility Strength Tone Transfers Goals Four Impairment Static Standing Balance Longterm Goal (LTG) Pt to stand with supervision assistance for 5 seconds without assistive device LTG Duration 11/16/18 Three Impairment Transfers Product Marketing Analyst Goal (LTG) Pt to perform stand-pivot transfer CGA with FWW LTG Duration 11/16/18 Two Impairment Gait Longterm Goal (LTG) Pt to ambulate 100' SBA /c FWW LTG Duration 11/16/18 One Impairment LE weakness Longterm Goal (LTG) Ankle Plantarflexion to 3/5 bilaterally All remaining planes to 4/5 bilaterally LTG Duration 11/16/18 Progress Towards Goals Progress Towards Goals Slow Progress due to Medical Issues Progress Comments Multiple Sclerosis Assessment Summary Assessment Pt struggled greatly today, admits she is just not feeling well, pt's sister notes that pt has been having difficulty transferring for the past few weeks at [facility]. Physical Therapy Plan Frequency and Duration Frequency of Treatment 1x/Week Duration of Treatment 3 months Plan of Care Start Date 08/19/18 Plan of Care End Date 11/16/18 Therapeutic Interventions Therapeutic Interventions Aquatic Therapy Gait Training Home Exercise Program Joint Mobilizations Neuromuscular Re-education Patient/Caregiver Education Self-Care/Home Management Therapeutic Activities Therapeutic Exercises Next Visit Focus/Plan Next Note Type Treatment Note Next Visit Plan Gait training, Balance, Activity tolerance, strengthening
--- NOTE | 2018-10-14 16:46 | PT.OTN ---
Current Diagnoses Multiple sclerosis (10/14/18) Muscle weakness (generalized) (10/14/18) Ataxic gait (10/14/18) Unsteadiness on feet (10/14/18) Physical Therapy Treatment Note PT-OP-A Visit Information Start: 11/19/17 17:22 Freq: Status: Active Protocol: Document 10/14/18 16:00 DCW (Rec: 10/14/18 16:46 DCW [id number]) Out-Patient Physical Therapy Visit Information Visit Information Visit Type Treatment Note Visit Start Time 16:00 Visit Stop Time 16:45 Total Visit Minutes 45 Visit Number 84 Number of FAMILY LAW MEDIATOR Visits 0 Evaluation Information Evaluation Date 02/06/16 PT-OP-B Current Condition Start: 11/26/17 16:53 Freq: Status: Active Protocol: Document 02/11/18 16:00 DCW (Rec: 02/11/18 16:19 DCW [id number]) Current Condition History of Current Condition History of Current Condition See Therapy Source for full patient history Treatment Goals Patient/Caregiver Goals Decrease burden of care Prior Functional Status Baseline Function- ADL's Needs Assist Baseline Function- Mobility Needs Assist Current Functional Impairments (Reported) Functional Limitations- Mobility/Gait Pt ambulates 80' CGA/Min Ax1 / c FWW Pt transfers stand-pivot Min Ax1 for balance and stability PT-OP-C Subjective Start: 11/19/17 17:22 Freq: Status: Active Protocol: Document 10/14/18 16:00 DCW (Rec: 10/14/18 16:46 DCW [id number]) OP-PT Subjective Patient Comments Patient Comments Pt arrives today with a new bruise on her low back, approxcimately 15 cm in length x 9 cm wide. Pt unable to explain when it happened, pt's sister and [id number] report they were called that she slid out of her chair, but overall she was fine. It is unclear if this bruise is from this incident or a new one that they do not know about. PT-OP-D Balance Start: 11/26/17 16:53 Freq: Status: Active Protocol: Document 08/19/18 16:05 DCW (Rec: 08/19/18 16:22 DCW [id number]) OP-PT Balance Assessment Standing Balance Static Standing Balance Ability Fair Dynamic Standing Balance Ability Poor Standing Balance Comments Pt requires Mod Ax1 when standing without assistive device for 5 seconds Dorado Fall Scale Copyright Permission Estrada SHER, Estrada RM, Anna SJ. Development of a scale to identify the fall- prone patient. Can J Aging 1989;8;366-7. Elisabeth Dorado (2009). Preventing patient falls. (2nd ed). [place]: [place]. PT-OP-G Mobility & Gait Start: 11/26/17 16:53 Freq: Status: Active Protocol: Document 08/19/18 16:05 DCW (Rec: 08/19/18 16:22 DCW [id number]) OP Mobility Evaluation Transfers Sit to Stand Min Ax1 /c FWW Bed to Chair Transfers Min Ax1 /c FWW OP Gait Assessment Gait Gait Assistance Required: Minimum Assistance 1 Person Assist Distance (Feet) 85 Assistive Devices Assistive Device Front Wheeled Walker Gait Deviations General Gait Pattern Ataxic Decreased Stride Length Decreased Feet Clearance Wide Based Gait Factors Limiting Gait Function Factors Limiting Gait Function Abnormal Tonal Influences Decreased Sensation Decreased Strength Poor Balance Poor Safety Awareness PT-OP-M Strength Start: 11/26/17 16:53 Freq: Status: Active Protocol: Document 08/19/18 16:05 DCW (Rec: 08/19/18 16:22 DCW [id number]) Hip Strength Hip Manual Muscle Testing Right Flexion (L2) 4 Good Abduction 4+ Good+ Adduction 5 Normal Left Flexion (L2) 4 Good Abduction 4+ Good+ Adduction 5 Normal Knee Strength Knee Manual Muscle Testing Right Flexion (S2) 4+ Good+ Extension (L3) 5 Normal Left Flexion (S2) 4+ Good+ Extension (L3) 5 Normal Ankle/Foot Strength Ankle and Foot Manual Muscle Testing Right Dorsiflexion (L4) 4+ Good+ Plantarflexion (S1) 3- Fair- Left Dorsiflexion (L4) 4+ Good+ Plantarflexion (S1) 3 Fair PT-OP-Q Treatments Start: 11/19/17 17:22 Freq: Status: Active Protocol: Document 10/14/18 16:00 DCW (Rec: 10/14/18 16:46 DCW [id number]) Cardio Equipment Upper Body Ergometer (UBE) Duration (Minutes) 6 RPM 60 Height 3 Other Forward/Backward Therapeutic Exercises Sitting Exercises 4 Sitting Exercise Name Seated Marching Side bilateral Resistance 5# Equipment Used Ankle weights 3 Sitting Exercise Name LAQ Side bilateral Resistance 5# Equipment Used Ankle weights 2 Sitting Exercise Name Hip abduction Side bilateral Resistance Lv 3 Equipment Used T-band 1 Sitting Exercise Name Hamstring Curls Side bilateral Resistance Lv 3 Equipment Used T-band Standing Exercises Hamstring Curls Standing Exercise Name HS curls @ rail Hip Abduction Standing Exercise Name Abduction @ rail Marching Standing Exercise Name Marching @ rail Gait Training Gait Activity 1 Device Used FWW Level of Assistance Mod Ax1 /c w/c follow Surface Level Distance/Duration 80' x1 Treatment Focus Knee extension/quad activation , activity tolerance Neuro Re-Education Treatment Coordination Activities 1 Details Cone activities Equipment Cones Speed 5# ankle weight Comments Using feet to knock over cones for coordination training/ neuromuscular re-education PT-OP-T Assessment and Plan Start: 11/19/17 17:22 Freq: Status: Active Protocol: Document 10/14/18 16:00 DCW (Rec: 10/14/18 16:46 DCW [id number]) Physical Therapy Assessment Impairments Impairments Activity Tolerance Balance Coordination Functional Activities Functional Mobility Gait Posture ROM Soft Tissue Mobility Strength Tone Transfers Goals Four Impairment Static Standing Balance Hand Bulldozer Goal (LTG) Pt to stand with supervision assistance for 5 seconds without assistive device LTG Duration 11/16/18 Three Impairment Transfers Hand Bulldozer Goal (LTG) Pt to perform stand-pivot transfer CGA with FWW LTG Duration 11/16/18 Two Impairment Gait Halfway Goal (LTG) Pt to ambulate 100' SBA /c FWW LTG Duration 11/16/18 One Impairment LE weakness Hand Bulldozer Goal (LTG) Ankle Plantarflexion to 3/5 bilaterally All remaining planes to 4/5 bilaterally LTG Duration 11/16/18 Progress Towards Goals Progress Towards Goals Slow Progress due to Medical Issues Progress Comments Multiple Sclerosis Assessment Summary Assessment Pt able to perform and walk with increased energy today, however did complain that standing at the rail exercising takes a lot out of me. Physical Therapy Plan Frequency and Duration Frequency of Treatment 1x/Week Duration of Treatment 3 months Plan of Care Start Date 08/19/18 Plan of Care End Date 11/16/18 Therapeutic Interventions Therapeutic Interventions Aquatic Therapy Gait Training Home Exercise Program Joint Mobilizations Neuromuscular Re-education Patient/Caregiver Education Self-Care/Home Management Therapeutic Activities Therapeutic Exercises Next Visit Focus/Plan Next Note Type Treatment Note Next Visit Plan Gait training, Balance, Activity tolerance, strengthening
--- NOTE | 2018-10-21 16:43 | PT.OTN ---
Current Diagnoses Multiple sclerosis (10/21/18) Muscle weakness (generalized) (10/21/18) Ataxic gait (10/21/18) Unsteadiness on feet (10/21/18) Physical Therapy Treatment Note PT-OP-A Visit Information Start: 11/19/17 17:22 Freq: Status: Active Protocol: Document 10/21/18 16:00 DCW (Rec: 10/21/18 16:43 DCW [id number]) Out-Patient Physical Therapy Visit Information Visit Information Visit Type Treatment Note Visit Start Time 16:00 Visit Stop Time 16:45 Total Visit Minutes 45 Visit Number 85 Number of DIRECTOR NURSES' REGISTRY Visits 0 Evaluation Information Evaluation Date 02/06/16 PT-OP-B Current Condition Start: 11/26/17 16:53 Freq: Status: Active Protocol: Document 02/11/18 16:00 DCW (Rec: 02/11/18 16:19 DCW [id number]) Current Condition History of Current Condition History of Current Condition See Therapy Source for full patient history Treatment Goals Patient/Caregiver Goals Decrease burden of care Prior Functional Status Baseline Function- ADL's Needs Assist Baseline Function- Mobility Needs Assist Current Functional Impairments (Reported) Functional Limitations- Mobility/Gait Pt ambulates 80' CGA/Min Ax1 / c FWW Pt transfers stand-pivot Min Ax1 for balance and stability PT-OP-C Subjective Start: 11/19/17 17:22 Freq: Status: Active Protocol: Document 10/21/18 16:00 DCW (Rec: 10/21/18 16:43 DCW [id number]) OP-PT Subjective Patient Comments Patient Comments Pt reports she is feeling pretty good overall, less tired than normal. PT-OP-D Balance Start: 11/26/17 16:53 Freq: Status: Active Protocol: Document 08/19/18 16:05 DCW (Rec: 08/19/18 16:22 DCW [id number]) OP-PT Balance Assessment Standing Balance Static Standing Balance Ability Fair Dynamic Standing Balance Ability Poor Standing Balance Comments Pt requires Mod Ax1 when standing without assistive device for 5 seconds Dorado Fall Scale Copyright Permission Estrada SHER, Estrada RM, Anna SJ. Development of a scale to identify the fall- prone patient. Can J Aging 1989;8;366-7. Elisabeth Dorado (2009). Preventing patient falls. (2nd ed). [place]: [employer]. PT-OP-G Mobility & Gait Start: 11/26/17 16:53 Freq: Status: Active Protocol: Document 08/19/18 16:05 DCW (Rec: 08/19/18 16:22 DCW [id number]) OP Mobility Evaluation Transfers Sit to Stand Min Ax1 /c FWW Bed to Chair Transfers Min Ax1 /c FWW OP Gait Assessment Gait Gait Assistance Required: Minimum Assistance 1 Person Assist Distance (Feet) 85 Assistive Devices Assistive Device Front Wheeled Walker Gait Deviations General Gait Pattern Ataxic Decreased Stride Length Decreased Feet Clearance Wide Based Gait Factors Limiting Gait Function Factors Limiting Gait Function Abnormal Tonal Influences Decreased Sensation Decreased Strength Poor Balance Poor Safety Awareness PT-OP-M Strength Start: 11/26/17 16:53 Freq: Status: Active Protocol: Document 08/19/18 16:05 DCW (Rec: 08/19/18 16:22 DCW [id number]) Hip Strength Hip Manual Muscle Testing Right Flexion (L2) 4 Good Abduction 4+ Good+ Adduction 5 Normal Left Flexion (L2) 4 Good Abduction 4+ Good+ Adduction 5 Normal Knee Strength Knee Manual Muscle Testing Right Flexion (S2) 4+ Good+ Extension (L3) 5 Normal Left Flexion (S2) 4+ Good+ Extension (L3) 5 Normal Ankle/Foot Strength Ankle and Foot Manual Muscle Testing Right Dorsiflexion (L4) 4+ Good+ Plantarflexion (S1) 3- Fair- Left Dorsiflexion (L4) 4+ Good+ Plantarflexion (S1) 3 Fair PT-OP-Q Treatments Start: 11/19/17 17:22 Freq: Status: Active Protocol: Document 10/21/18 16:00 DCW (Rec: 10/21/18 16:43 DCW [id number]) Cardio Equipment Upper Body Ergometer (UBE) Duration (Minutes) 6 RPM 60 Height 3 Other Forward/Backward Gym Equipment Shuttle Recovery Unilateral Squats Resistance 37# Shuttle Recovery Platform Stable Bilateral Squats Resistance 75# Shuttle Recovery Platform Stable Therapeutic Ball 1 Exercise Details Hip Abduction/Adduction Ball Size/Color Red - 55 cm Lv 3 T-band Body Position Sitting Comments Foot on ball Therapeutic Exercises Sitting Exercises 3 Sitting Exercise Name LAQ Side bilateral Resistance 5# Equipment Used Ankle weights Standing Exercises Hamstring Curls Standing Exercise Name HS curls @ rail Hip Abduction Standing Exercise Name Abduction @ rail Marching Standing Exercise Name Marching @ rail Gait Training Gait Activity 1 Device Used FWW Level of Assistance Mod Ax1 /c w/c follow Surface Level Distance/Duration 80' x1, 20' x2, 10' x1 Treatment Focus Knee extension/quad activation , activity tolerance PT-OP-T Assessment and Plan Start: 11/19/17 17:22 Freq: Status: Active Protocol: Document 10/21/18 16:00 DCW (Rec: 10/21/18 16:43 DCW [id number]) Physical Therapy Assessment Impairments Impairments Activity Tolerance Balance Coordination Functional Activities Functional Mobility Gait Posture ROM Soft Tissue Mobility Strength Tone Transfers Goals Four Impairment Static Standing Balance Correction Goal (LTG) Pt to stand with supervision assistance for 5 seconds without assistive device LTG Duration 11/16/18 Three Impairment Transfers Correction Goal (LTG) Pt to perform stand-pivot transfer CGA with FWW LTG Duration 11/16/18 Two Impairment Gait Correction Goal (LTG) Pt to ambulate 100' SBA /c FWW LTG Duration 11/16/18 One Impairment LE weakness Correction Goal (LTG) Ankle Plantarflexion to 3/5 bilaterally All remaining planes to 4/5 bilaterally LTG Duration 11/16/18 Progress Towards Goals Progress Towards Goals Slow Progress due to Medical Issues Progress Comments Multiple Sclerosis Assessment Summary Assessment Pt did very well with ambulation today, showed minimal fatigue, and was still willing to do more standing TherEx than normal Physical Therapy Plan Frequency and Duration Frequency of Treatment 1x/Week Duration of Treatment 3 months Plan of Care Start Date 08/19/18 Plan of Care End Date 11/16/18 Therapeutic Interventions Therapeutic Interventions Aquatic Therapy Gait Training Home Exercise Program Joint Mobilizations Neuromuscular Re-education Patient/Caregiver Education Self-Care/Home Management Therapeutic Activities Therapeutic Exercises Next Visit Focus/Plan Next Note Type Treatment Note Next Visit Plan Gait training, Balance, Activity tolerance, strengthening
--- NOTE | 2018-11-18 16:44 | PT.OTN ---
Current Diagnoses Multiple sclerosis (11/18/18) Muscle weakness (generalized) (11/18/18) Ataxic gait (11/18/18) Unsteadiness on feet (11/18/18) Physical Therapy Treatment Note PT-OP-A Visit Information Start: 11/19/17 17:22 Freq: Status: Active Protocol: Document 11/18/18 16:00 DCW (Rec: 11/18/18 16:44 DCW [id number]) Out-Patient Physical Therapy Visit Information Visit Information Visit Type Progress Note Visit Start Time 16:00 Visit Stop Time 16:45 Total Visit Minutes 45 Visit Number 87 Number of CYBER SECURITY MANAGER Visits 0 Evaluation Information Evaluation Date 02/06/16 PT-OP-B Current Condition Start: 11/26/17 16:53 Freq: Status: Active Protocol: Document 02/11/18 16:00 DCW (Rec: 02/11/18 16:19 DCW [id number]) Current Condition History of Current Condition History of Current Condition See Therapy Source for full patient history Treatment Goals Patient/Caregiver Goals Decrease burden of care Prior Functional Status Baseline Function- ADL's Needs Assist Baseline Function- Mobility Needs Assist Current Functional Impairments (Reported) Functional Limitations- Mobility/Gait Pt ambulates 80' CGA/Min Ax1 / c FWW Pt transfers stand-pivot Min Ax1 for balance and stability PT-OP-C Subjective Start: 11/19/17 17:22 Freq: Status: Active Protocol: Document 11/18/18 16:00 DCW (Rec: 11/18/18 16:44 DCW [id number]) OP-PT Subjective Patient Comments Patient Comments Pt's sister notes that at her new housing, pt has been getting transferred using a mechanical lift. PT-OP-D Balance Start: 11/26/17 16:53 Freq: Status: Active Protocol: Document 11/18/18 16:00 DCW (Rec: 11/18/18 16:21 DCW [id number]) OP-PT Balance Assessment Standing Balance Static Standing Balance Ability Fair Dynamic Standing Balance Ability Poor Standing Balance Comments Pt requires Mod Ax1 when standing without assistive device for 8 seconds Estrada Fall Scale Copyright Permission Estrada SHER, Estrada RM, Anna SJ. Development of a scale to identify the fall- prone patient. Can J Aging 1989;8;366-7. Elisabeth Dorado (2009). Preventing patient falls. (2nd ed). [place]: [employer]. PT-OP-G Mobility & Gait Start: 11/26/17 16:53 Freq: Status: Active Protocol: Document 11/18/18 16:00 DCW (Rec: 11/18/18 16:21 DCW [id number]) OP Mobility Evaluation Transfers Sit to Stand Min Ax1 /c FWW Bed to Chair Transfers Min Ax1 /c FWW OP Gait Assessment Gait Gait Assistance Required: Minimum Assistance 1 Person Assist Distance (Feet) 84 Assistive Devices Assistive Device Front Wheeled Walker Gait Deviations General Gait Pattern Ataxic Decreased Stride Length Decreased Feet Clearance Wide Based Gait Factors Limiting Gait Function Factors Limiting Gait Function Abnormal Tonal Influences Decreased Sensation Decreased Strength Poor Balance Poor Safety Awareness PT-OP-M Strength Start: 11/26/17 16:53 Freq: Status: Active Protocol: Document 11/18/18 16:00 DCW (Rec: 11/18/18 16:21 DCW [id number]) Hip Strength Hip Manual Muscle Testing Right Flexion (L2) 4 Good Abduction 4+ Good+ Adduction 5 Normal Left Flexion (L2) 4 Good Abduction 4+ Good+ Adduction 5 Normal Knee Strength Knee Manual Muscle Testing Right Flexion (S2) 4+ Good+ Extension (L3) 5 Normal Left Flexion (S2) 4+ Good+ Extension (L3) 5 Normal Ankle/Foot Strength Ankle and Foot Manual Muscle Testing Right Dorsiflexion (L4) 4+ Good+ Plantarflexion (S1) 3- Fair- Left Dorsiflexion (L4) 4+ Good+ Plantarflexion (S1) 3 Fair PT-OP-Q Treatments Start: 11/19/17 17:22 Freq: Status: Active Protocol: Document 11/18/18 16:00 DCW (Rec: 11/18/18 16:44 DCW [id number]) Cardio Equipment Upper Body Ergometer (UBE) Duration (Minutes) 6 RPM 60 Height 3 Other Forward/Backward Gym Equipment Shuttle Recovery Unilateral Squats Resistance 37# Shuttle Recovery Platform Stable Bilateral Squats Resistance 75# Shuttle Recovery Platform Stable Therapeutic Exercises Standing Exercises Hamstring Curls Standing Exercise Name HS curls @ rail Hip Abduction Standing Exercise Name Abduction @ rail Marching Standing Exercise Name Marching @ rail Gait Training Gait Activity 1 Device Used FWW Level of Assistance Mod Ax1 /c w/c follow Surface Level Distance/Duration 82' x1, 20' x1 Treatment Focus Knee extension/quad activation , activity tolerance Manual Therapy Treatment Other Other Manual Treatments MMT, Standing malance testing PT-OP-T Assessment and Plan Start: 11/19/17 17:22 Freq: Status: Active Protocol: Document 11/18/18 16:00 DCW (Rec: 11/18/18 16:44 DCW [id number]) Physical Therapy Assessment Impairments Impairments Activity Tolerance Balance Coordination Functional Activities Functional Mobility Gait Posture ROM Soft Tissue Mobility Strength Tone Transfers Goals Four Impairment Static Standing Balance Skilled Nursing Goal (LTG) Pt to stand with supervision assistance for 5 seconds without assistive device LTG Duration 02/18/19 Three Impairment Transfers Casino Change Attendant Goal (LTG) Pt to perform stand-pivot transfer CGA with FWW LTG Duration 02/18/19 Two Impairment Gait Skilled Nursing Goal (LTG) Pt to ambulate 100' SBA /c FWW LTG Duration 02/18/19 One Impairment LE weakness Casino Change Attendant Goal (LTG) Ankle Plantarflexion to 3/5 bilaterally All remaining planes to 4/5 bilaterally LTG Duration 02/18/19 Progress Towards Goals Progress Towards Goals Slow Progress due to Medical Issues Progress Comments Multiple Sclerosis Assessment Summary Assessment Pt largely similar to her most recent reassessment, which, due to the progressive nature of MS, is likely best-case scenario. Pt will likely continue to benefit from skilled therapy to maintain current function and decrease burden of care, especially to decrease use of lift for transfers. Physical Therapy Plan Frequency and Duration Frequency of Treatment 1x/Week Duration of Treatment 3 months Plan of Care Start Date 11/18/18 Plan of Care End Date 02/18/19 Therapeutic Interventions Therapeutic Interventions Aquatic Therapy Gait Training Home Exercise Program Joint Mobilizations Neuromuscular Re-education Patient/Caregiver Education Self-Care/Home Management Therapeutic Activities Therapeutic Exercises Next Visit Focus/Plan Next Note Type Treatment Note Next Visit Plan Gait training, Balance, Activity tolerance, strengthening
--- NOTE | 2018-11-18 16:45 | PT.OPPOC ---
Current Diagnoses Multiple sclerosis (11/18/18) Muscle weakness (generalized) (11/18/18) Ataxic gait (11/18/18) Unsteadiness on feet (11/18/18) Provider Visit Care Team Role Provider Type Dariana Stratton DO Attending Provider Physician Family Provider Primary Care Provider Specialty: Family Practice Address: [address] [place] [address] Email: [email or web address] Plan Of Care PT-OP-T Assessment and Plan Start: 11/19/17 17:22 Freq: Status: Active Protocol: Document 11/18/18 16:00 DCW (Rec: 11/18/18 16:44 DCW [id number]) Physical Therapy Assessment Impairments Impairments Activity Tolerance Balance Coordination Functional Activities Functional Mobility Gait Posture ROM Soft Tissue Mobility Strength Tone Transfers Goals Four Impairment Static Standing Balance Office Service Coordinator Goal (LTG) Pt to stand with supervision assistance for 5 seconds without assistive device LTG Duration 02/18/19 Three Impairment Transfers Assisted Goal (LTG) Pt to perform stand-pivot transfer CGA with FWW LTG Duration 02/18/19 Two Impairment Gait Office Service Coordinator Goal (LTG) Pt to ambulate 100' SBA /c FWW LTG Duration 02/18/19 One Impairment LE weakness Office Service Coordinator Goal (LTG) Ankle Plantarflexion to 3/5 bilaterally All remaining planes to 4/5 bilaterally LTG Duration 02/18/19 Progress Towards Goals Progress Towards Goals Slow Progress due to Medical Issues Progress Comments Multiple Sclerosis Assessment Summary Assessment Pt largely similar to her most recent reassessment, which, due to the progressive nature of MS, is likely best-case scenario. Pt will likely continue to benefit from skilled therapy to maintain current function and decrease burden of care, especially to decrease use of lift for transfers. Physical Therapy Plan Frequency and Duration Frequency of Treatment 1x/Week Duration of Treatment 3 months Plan of Care Start Date 11/18/18 Plan of Care End Date 02/18/19 Therapeutic Interventions Therapeutic Interventions Aquatic Therapy Gait Training Home Exercise Program Joint Mobilizations Neuromuscular Re-education Patient/Caregiver Education Self-Care/Home Management Therapeutic Activities Therapeutic Exercises Next Visit Focus/Plan Next Note Type Treatment Note Next Visit Plan Gait training, Balance, Activity tolerance, strengthening Plan of Care Dates Plan of Care Start Date 11/18/18 Plan of Care End Date 02/18/19 Please Sign and Return: I have reviewed this Plan of Care and certify that the skilled therapy services above are required to meet the patient?s needs. Physician Signature Date Printed Name and Credentials Clinical Instructor Signature Printed Name and Credentials
--- NOTE | 2018-12-22 18:01 | PT.OTN ---
Current Diagnoses Multiple sclerosis (12/22/18) Muscle weakness (generalized) (12/22/18) Ataxic gait (12/22/18) Unsteadiness on feet (12/22/18) Physical Therapy Treatment Note PT-OP-A Visit Information Start: 11/19/17 17:22 Freq: Status: Active Protocol: Document 12/22/18 16:45 DCW (Rec: 12/22/18 18:01 DCW [id number]) Out-Patient Physical Therapy Visit Information Visit Information Visit Type Treatment Note Visit Start Time 16:00 Visit Stop Time 16:45 Total Visit Minutes 45 Visit Number 88 Number of HOSEMAN Visits 0 Evaluation Information Evaluation Date 02/06/16 PT-OP-B Current Condition Start: 11/26/17 16:53 Freq: Status: Active Protocol: Document 02/11/18 16:00 DCW (Rec: 02/11/18 16:19 DCW [id number]) Current Condition History of Current Condition History of Current Condition See Therapy Source for full patient history Treatment Goals Patient/Caregiver Goals Decrease burden of care Prior Functional Status Baseline Function- ADL's Needs Assist Baseline Function- Mobility Needs Assist Current Functional Impairments (Reported) Functional Limitations- Mobility/Gait Pt ambulates 80' CGA/Min Ax1 / c FWW Pt transfers stand-pivot Min Ax1 for balance and stability PT-OP-C Subjective Start: 11/19/17 17:22 Freq: Status: Active Protocol: Document 12/22/18 16:45 DCW (Rec: 12/22/18 18:01 DCW [id number]) OP-PT Subjective Patient Comments Patient Comments Pt's last few visits have been canceled due to a UTI and a sprained ankle during a shower transfer at [facility]. Pt's ankle injury was now nearly one month ago (516/), and pt still has ongoing pain. PT-OP-D Balance Start: 11/26/17 16:53 Freq: Status: Active Protocol: Document 11/18/18 16:00 DCW (Rec: 11/18/18 16:21 DCW [id number]) OP-PT Balance Assessment Standing Balance Static Standing Balance Ability Fair Dynamic Standing Balance Ability Poor Standing Balance Comments Pt requires Mod Ax1 when standing without assistive device for 8 seconds Dorado Fall Scale Copyright Permission Estrada SHER, Estrada ROMAN, Anna SJ. Development of a scale to identify the fall- prone patient. Can J Aging 1989;8;366-7. Elisabeth Dorado (2009). Preventing patient falls. (2nd ed). [place]: [place]. PT-OP-G Mobility & Gait Start: 11/26/17 16:53 Freq: Status: Active Protocol: Document 11/18/18 16:00 DCW (Rec: 11/18/18 16:21 DCW [id number]) OP Mobility Evaluation Transfers Sit to Stand Min Ax1 /c FWW Bed to Chair Transfers Min Ax1 /c FWW OP Gait Assessment Gait Gait Assistance Required: Minimum Assistance 1 Person Assist Distance (Feet) 84 Assistive Devices Assistive Device Front Wheeled Walker Gait Deviations General Gait Pattern Ataxic Decreased Stride Length Decreased Feet Clearance Wide Based Gait Factors Limiting Gait Function Factors Limiting Gait Function Abnormal Tonal Influences Decreased Sensation Decreased Strength Poor Balance Poor Safety Awareness PT-OP-M Strength Start: 11/26/17 16:53 Freq: Status: Active Protocol: Document 11/18/18 16:00 DCW (Rec: 11/18/18 16:21 DCW [id number]) Hip Strength Hip Manual Muscle Testing Right Flexion (L2) 4 Good Abduction 4+ Good+ Adduction 5 Normal Left Flexion (L2) 4 Good Abduction 4+ Good+ Adduction 5 Normal Knee Strength Knee Manual Muscle Testing Right Flexion (S2) 4+ Good+ Extension (L3) 5 Normal Left Flexion (S2) 4+ Good+ Extension (L3) 5 Normal Ankle/Foot Strength Ankle and Foot Manual Muscle Testing Right Dorsiflexion (L4) 4+ Good+ Plantarflexion (S1) 3- Fair- Left Dorsiflexion (L4) 4+ Good+ Plantarflexion (S1) 3 Fair PT-OP-Q Treatments Start: 11/19/17 17:22 Freq: Status: Active Protocol: Document 12/22/18 16:45 DCW (Rec: 12/22/18 18:01 DCW [id number]) Therapeutic Exercises Sitting Exercises 5 Sitting Exercise Name Adductor Ball Squeeze Side bilateral Resistance Small ball 4 Sitting Exercise Name Seated Marching Side bilateral Resistance 5# Equipment Used Ankle weights 3 Sitting Exercise Name LAQ Side bilateral Resistance 5# Equipment Used Ankle weights 2 Sitting Exercise Name Hip abduction Side bilateral Resistance Lv 3 Equipment Used T-band 1 Sitting Exercise Name Hamstring Curls Side bilateral Resistance Lv 3 Equipment Used T-band Manual Therapy Treatment Other Other Manual Treatments Assessment of ankle PT-OP-T Assessment and Plan Start: 11/19/17 17:22 Freq: Status: Active Protocol: Document 12/22/18 16:45 DCW (Rec: 12/22/18 18:01 DCW [id number]) Physical Therapy Assessment Impairments Impairments Activity Tolerance Balance Coordination Functional Activities Functional Mobility Gait Posture ROM Soft Tissue Mobility Strength Tone Transfers Goals Four Impairment Static Standing Balance Correction Goal (LTG) Pt to stand with supervision assistance for 5 seconds without assistive device LTG Duration 02/18/19 Three Impairment Transfers Correction Goal (LTG) Pt to perform stand-pivot transfer CGA with FWW LTG Duration 02/18/19 Two Impairment Gait Warp Drawer Goal (LTG) Pt to ambulate 100' SBA /c FWW LTG Duration 02/18/19 One Impairment LE weakness Warp Drawer Goal (LTG) Ankle Plantarflexion to 3/5 bilaterally All remaining planes to 4/5 bilaterally LTG Duration 02/18/19 Progress Towards Goals Progress Towards Goals Slow Progress due to Medical Issues Progress Comments Multiple Sclerosis Assessment Summary Assessment Pt's left ankle continues to show edema and significant tenderness to palpation. Pt's ankle joint does appear to be hypermobile compared to her right, which may indicate stretched or torn ligamentous structures. Additionally, pt appeared to have increased confusion today, acting as though she was unsure of who her therapist was, despite being treated by the same therapist for a number of years. Phoned pt's sister afterward, who also echoed concerns about recent cognitive issues, and she would like to phone her PCP regarding another UTI test, as well as a follow-up for her ankle sprain. Physical Therapy Plan Frequency and Duration Frequency of Treatment 1x/Week Duration of Treatment 3 months Plan of Care Start Date 11/18/18 Plan of Care End Date 02/18/19 Therapeutic Interventions Therapeutic Interventions Aquatic Therapy Gait Training Home Exercise Program Joint Mobilizations Neuromuscular Re-education Patient/Caregiver Education Self-Care/Home Management Therapeutic Activities Therapeutic Exercises Next Visit Focus/Plan Next Note Type Treatment Note Next Visit Plan Gait training, Balance, Activity tolerance, strengthening
--- NOTE | 2018-12-30 16:53 | PT.OTN ---
Current Diagnoses Multiple sclerosis (12/30/18) Muscle weakness (generalized) (12/30/18) Ataxic gait (12/30/18) Unsteadiness on feet (12/30/18) Physical Therapy Treatment Note PT-OP-A Visit Information Start: 11/19/17 17:22 Freq: Status: Active Protocol: Document 12/30/18 16:05 DCW (Rec: 12/30/18 16:53 DCW [id number]) Out-Patient Physical Therapy Visit Information Visit Information Visit Type Treatment Note Visit Start Time 16:05 Visit Stop Time 16:45 Total Visit Minutes 40 Visit Number 89 Number of GAS TRUCK DRIVER Visits 0 Evaluation Information Evaluation Date 02/06/16 PT-OP-B Current Condition Start: 11/26/17 16:53 Freq: Status: Active Protocol: Document 02/11/18 16:00 DCW (Rec: 02/11/18 16:19 DCW [id number]) Current Condition History of Current Condition History of Current Condition See Therapy Source for full patient history Treatment Goals Patient/Caregiver Goals Decrease burden of care Prior Functional Status Baseline Function- ADL's Needs Assist Baseline Function- Mobility Needs Assist Current Functional Impairments (Reported) Functional Limitations- Mobility/Gait Pt ambulates 80' CGA/Min Ax1 / c FWW Pt transfers stand-pivot Min Ax1 for balance and stability PT-OP-C Subjective Start: 11/19/17 17:22 Freq: Status: Active Protocol: Document 12/30/18 16:05 DCW (Rec: 12/30/18 16:53 DCW [id number]) OP-PT Subjective Patient Comments Patient Comments Following pt's PT appointment last week, it was found that she still has a UTI. PT's sister also reports that she has spoken with her PCP's nurse, and requested a CT scan of her ankle, which is still bothering her. PT-OP-D Balance Start: 11/26/17 16:53 Freq: Status: Active Protocol: Document 11/18/18 16:00 DCW (Rec: 11/18/18 16:21 DCW [id number]) OP-PT Balance Assessment Standing Balance Static Standing Balance Ability Fair Dynamic Standing Balance Ability Poor Standing Balance Comments Pt requires Mod Ax1 when standing without assistive device for 8 seconds Dorado Fall Scale Copyright Permission PT-OP-G Mobility & Gait Start: 11/26/17 16:53 Freq: Status: Active Protocol: Document 11/18/18 16:00 DCW (Rec: 11/18/18 16:21 DCW [id number]) OP Mobility Evaluation Transfers Sit to Stand Min Ax1 /c FWW Bed to Chair Transfers Min Ax1 /c FWW OP Gait Assessment Gait Gait Assistance Required: Minimum Assistance 1 Person Assist Distance (Feet) 84 Assistive Devices Assistive Device Front Wheeled Walker Gait Deviations General Gait Pattern Ataxic Decreased Stride Length Decreased Feet Clearance Wide Based Gait Factors Limiting Gait Function Factors Limiting Gait Function Abnormal Tonal Influences Decreased Sensation Decreased Strength Poor Balance Poor Safety Awareness PT-OP-M Strength Start: 11/26/17 16:53 Freq: Status: Active Protocol: Document 11/18/18 16:00 DCW (Rec: 11/18/18 16:21 DCW [id number]) Hip Strength Hip Manual Muscle Testing Right Flexion (L2) 4 Good Abduction 4+ Good+ Adduction 5 Normal Left Flexion (L2) 4 Good Abduction 4+ Good+ Adduction 5 Normal Knee Strength Knee Manual Muscle Testing Right Flexion (S2) 4+ Good+ Extension (L3) 5 Normal Left Flexion (S2) 4+ Good+ Extension (L3) 5 Normal Ankle/Foot Strength Ankle and Foot Manual Muscle Testing Right Dorsiflexion (L4) 4+ Good+ Plantarflexion (S1) 3- Fair- Left Dorsiflexion (L4) 4+ Good+ Plantarflexion (S1) 3 Fair PT-OP-Q Treatments Start: 11/19/17 17:22 Freq: Status: Active Protocol: Document 12/30/18 16:05 DCW (Rec: 12/30/18 16:53 DCW [id number]) Cardio Equipment Upper Body Ergometer (UBE) Duration (Minutes) 6 RPM 60 Height 3 Other Forward/Backward Gym Equipment Therapeutic Ball 1 Exercise Details Hip Abduction/Adduction Ball Size/Color Red - 55 cm Lv 3 T-band Body Position Sitting Comments Foot on ball Therapeutic Exercises Sitting Exercises 6 Sitting Exercise Name Ankle Plantarflexion Side bilateral Resistance Lv 1 Equipment Used T-band 5 Sitting Exercise Name Adductor Ball Squeeze Side bilateral Resistance Small ball 4 Sitting Exercise Name Seated Marching Side bilateral Resistance 10# Equipment Used Ankle weights 3 Sitting Exercise Name LAQ Side bilateral Resistance 10# Equipment Used Ankle weights 2 Sitting Exercise Name Hip abduction Side bilateral Resistance Lv 3 Equipment Used T-band 1 Sitting Exercise Name Hamstring Curls Side bilateral Resistance Lv 3 Equipment Used T-band PT-OP-T Assessment and Plan Start: 11/19/17 17:22 Freq: Status: Active Protocol: Document 12/30/18 16:05 DCW (Rec: 12/30/18 16:53 DCW [id number]) Physical Therapy Assessment Impairments Impairments Activity Tolerance Balance Coordination Functional Activities Functional Mobility Gait Posture ROM Soft Tissue Mobility Strength Tone Transfers Goals Four Impairment Static Standing Balance [facility]cf Goal (LTG) Pt to stand with supervision assistance for 5 seconds without assistive device LTG Duration 02/18/19 Three Impairment Transfers Chcf Goal (LTG) Pt to perform stand-pivot transfer CGA with FWW LTG Duration 02/18/19 Two Impairment Gait Chcf Goal (LTG) Pt to ambulate 100' SBA /c FWW LTG Duration 02/18/19 One Impairment LE weakness Chcf Goal (LTG) Ankle Plantarflexion to 3/5 bilaterally All remaining planes to 4/5 bilaterally LTG Duration 02/18/19 Progress Towards Goals Progress Towards Goals Slow Progress due to Medical Issues Progress Comments Multiple Sclerosis Assessment Summary Assessment Standing and walking activities were again avoided due to pt's ankle pain and edema today, pt reports continued discomfort with any ankle mobility. Physical Therapy Plan Frequency and Duration Frequency of Treatment 1x/Week Duration of Treatment 3 months Plan of Care Start Date 11/18/18 Plan of Care End Date 02/18/19 Therapeutic Interventions Therapeutic Interventions Aquatic Therapy Gait Training Home Exercise Program Joint Mobilizations Neuromuscular Re-education Patient/Caregiver Education Self-Care/Home Management Therapeutic Activities Therapeutic Exercises Next Visit Focus/Plan Next Note Type Treatment Note Next Visit Plan Gait training, Balance, Activity tolerance, strengthening
--- NOTE | 2019-01-06 16:46 | PT.OTN ---
Current Diagnoses Multiple sclerosis (01/06/19) Muscle weakness (generalized) (01/06/19) Ataxic gait (01/06/19) Unsteadiness on feet (01/06/19) Physical Therapy Treatment Note PT-OP-A Visit Information Start: 11/19/17 17:22 Freq: Status: Active Protocol: Document 01/06/19 16:00 DCW (Rec: 01/06/19 16:45 DCW [id number]) Out-Patient Physical Therapy Visit Information Visit Information Visit Type Treatment Note Visit Start Time 16:00 Visit Stop Time 16:45 Total Visit Minutes 45 Visit Number 90 Number of AIRPLANE NAVIGATOR Visits 0 Evaluation Information Evaluation Date 02/06/16 PT-OP-B Current Condition Start: 11/26/17 16:53 Freq: Status: Active Protocol: Document 02/11/18 16:00 DCW (Rec: 02/11/18 16:19 DCW [id number]) Current Condition History of Current Condition History of Current Condition See Therapy Source for full patient history Treatment Goals Patient/Caregiver Goals Decrease burden of care Prior Functional Status Baseline Function- ADL's Needs Assist Baseline Function- Mobility Needs Assist Current Functional Impairments (Reported) Functional Limitations- Mobility/Gait Pt ambulates 80' CGA/Min Ax1 / c FWW Pt transfers stand-pivot Min Ax1 for balance and stability PT-OP-C Subjective Start: 11/19/17 17:22 Freq: Status: Active Protocol: Document 01/06/19 16:00 DCW (Rec: 01/06/19 16:45 DCW [id number]) OP-PT Subjective Patient Comments Patient Comments Pt still not comfortable with walking, but has an MRI scheduled on her ankle tonight . PT-OP-D Balance Start: 11/26/17 16:53 Freq: Status: Active Protocol: Document 11/18/18 16:00 DCW (Rec: 11/18/18 16:21 DCW [id number]) OP-PT Balance Assessment Standing Balance Static Standing Balance Ability Fair Dynamic Standing Balance Ability Poor Standing Balance Comments Pt requires Mod Ax1 when standing without assistive device for 8 seconds Dorado Fall Scale Copyright Permission PT-OP-G Mobility & Gait Start: 11/26/17 16:53 Freq: Status: Active Protocol: Document 11/18/18 16:00 DCW (Rec: 11/18/18 16:21 DCW [id number]) OP Mobility Evaluation Transfers Sit to Stand Min Ax1 /c FWW Bed to Chair Transfers Min Ax1 /c FWW OP Gait Assessment Gait Gait Assistance Required: Minimum Assistance 1 Person Assist Distance (Feet) 84 Assistive Devices Assistive Device Front Wheeled Walker Gait Deviations General Gait Pattern Ataxic Decreased Stride Length Decreased Feet Clearance Wide Based Gait Factors Limiting Gait Function Factors Limiting Gait Function Abnormal Tonal Influences Decreased Sensation Decreased Strength Poor Balance Poor Safety Awareness PT-OP-M Strength Start: 11/26/17 16:53 Freq: Status: Active Protocol: Document 11/18/18 16:00 DCW (Rec: 11/18/18 16:21 DCW [id number]) Hip Strength Hip Manual Muscle Testing Right Flexion (L2) 4 Good Abduction 4+ Good+ Adduction 5 Normal Left Flexion (L2) 4 Good Abduction 4+ Good+ Adduction 5 Normal Knee Strength Knee Manual Muscle Testing Right Flexion (S2) 4+ Good+ Extension (L3) 5 Normal Left Flexion (S2) 4+ Good+ Extension (L3) 5 Normal Ankle/Foot Strength Ankle and Foot Manual Muscle Testing Right Dorsiflexion (L4) 4+ Good+ Plantarflexion (S1) 3- Fair- Left Dorsiflexion (L4) 4+ Good+ Plantarflexion (S1) 3 Fair PT-OP-Q Treatments Start: 11/19/17 17:22 Freq: Status: Active Protocol: Document 01/06/19 16:00 DCW (Rec: 01/06/19 16:45 DCW [id number]) Cardio Equipment Upper Body Ergometer (UBE) Duration (Minutes) 6 RPM 60 Height 3 Other Forward/Backward Gym Equipment Therapeutic Ball 1 Exercise Details Hip Abduction/Adduction Ball Size/Color Red - 55 cm Lv 3 T-band Body Position Sitting Comments Foot on ball Therapeutic Exercises Sitting Exercises 6 Sitting Exercise Name Ankle Plantarflexion Side bilateral Resistance Lv 1 Equipment Used T-band 5 Sitting Exercise Name Adductor Ball Squeeze Side bilateral Resistance Small ball 4 Sitting Exercise Name Seated Marching Side bilateral Resistance 10# Equipment Used Ankle weights 3 Sitting Exercise Name LAQ Side bilateral Resistance 10# Equipment Used Ankle weights 2 Sitting Exercise Name Hip abduction Side bilateral Resistance Lv 3 Equipment Used T-band 1 Sitting Exercise Name Hamstring Curls Side bilateral Resistance Lv 3 Equipment Used T-band Neuro Re-Education Treatment Coordination Activities 1 Details Cone activities Equipment Cones Speed 10# ankle weight Comments Using feet to knock over cones for coordination training/ neuromuscular re-education PT-OP-T Assessment and Plan Start: 11/19/17 17:22 Freq: Status: Active Protocol: Document 01/06/19 16:00 DCW (Rec: 01/06/19 16:45 DCW [id number]) Physical Therapy Assessment Impairments Impairments Activity Tolerance Balance Coordination Functional Activities Functional Mobility Gait Posture ROM Soft Tissue Mobility Strength Tone Transfers Goals Four Impairment Static Standing Balance Preparator Goal (LTG) Pt to stand with supervision assistance for 5 seconds without assistive device LTG Duration 02/18/19 Three Impairment Transfers [facility] Goal (LTG) Pt to perform stand-pivot transfer CGA with FWW LTG Duration 02/18/19 Two Impairment Gait Preparator Goal (LTG) Pt to ambulate 100' SBA /c FWW LTG Duration 02/18/19 One Impairment LE weakness [facility] Goal (LTG) Ankle Plantarflexion to 3/5 bilaterally All remaining planes to 4/5 bilaterally LTG Duration 02/18/19 Progress Towards Goals Progress Towards Goals Slow Progress due to Medical Issues Progress Comments Multiple Sclerosis Assessment Summary Assessment Pending results of MRI tonight , PT will reassess pt's ability to bear weight through her left foot next week. Physical Therapy Plan Frequency and Duration Frequency of Treatment 1x/Week Duration of Treatment 3 months Plan of Care Start Date 11/18/18 Plan of Care End Date 02/18/19 Therapeutic Interventions Therapeutic Interventions Aquatic Therapy Gait Training Home Exercise Program Joint Mobilizations Neuromuscular Re-education Patient/Caregiver Education Self-Care/Home Management Therapeutic Activities Therapeutic Exercises Next Visit Focus/Plan Next Note Type Treatment Note Next Visit Plan Gait training, Balance, Activity tolerance, strengthening
--- NOTE | 2019-01-20 16:50 | PT.OTN ---
Current Diagnoses Multiple sclerosis (01/20/19) Muscle weakness (generalized) (01/20/19) Ataxic gait (01/20/19) Unsteadiness on feet (01/20/19) Physical Therapy Treatment Note PT-OP-A Visit Information Start: 11/19/17 17:22 Freq: Status: Active Protocol: Document 01/20/19 16:00 DCW (Rec: 01/20/19 16:49 DCW [id number]) Out-Patient Physical Therapy Visit Information Visit Information Visit Type Treatment Note Visit Start Time 16:00 Visit Stop Time 16:45 Total Visit Minutes 45 Visit Number 91 Number of PIPE FITTER SOFT COPPER Visits 0 Evaluation Information Evaluation Date 02/06/16 PT-OP-B Current Condition Start: 11/26/17 16:53 Freq: Status: Active Protocol: Document 02/11/18 16:00 DCW (Rec: 02/11/18 16:19 DCW [id number]) Current Condition History of Current Condition History of Current Condition See Therapy Source for full patient history Treatment Goals Patient/Caregiver Goals Decrease burden of care Prior Functional Status Baseline Function- ADL's Needs Assist Baseline Function- Mobility Needs Assist Current Functional Impairments (Reported) Functional Limitations- Mobility/Gait Pt ambulates 80' CGA/Min Ax1 / c FWW Pt transfers stand-pivot Min Ax1 for balance and stability PT-OP-C Subjective Start: 11/19/17 17:22 Freq: Status: Active Protocol: Document 01/20/19 16:00 DCW (Rec: 01/20/19 16:49 DCW [id number]) OP-PT Subjective Patient Comments Patient Comments Pt reports her ankle continues to bother her. MRI results: ... Finding is concerning for nondisplaced fracture or stress fracture involving anterior and medial portion of talus adjacent to the talonavicular joint. per Mitchel Cardona M.D. on 01/07/2019 PT-OP-D Balance Start: 11/26/17 16:53 Freq: Status: Active Protocol: Document 11/18/18 16:00 DCW (Rec: 11/18/18 16:21 DCW [id number]) OP-PT Balance Assessment Standing Balance Static Standing Balance Ability Fair Dynamic Standing Balance Ability Poor Standing Balance Comments Pt requires Mod Ax1 when standing without assistive device for 8 seconds Dorado Fall Scale Copyright Permission PT-OP-G Mobility & Gait Start: 11/26/17 16:53 Freq: Status: Active Protocol: Document 11/18/18 16:00 DCW (Rec: 11/18/18 16:21 DCW [id number]) OP Mobility Evaluation Transfers Sit to Stand Min Ax1 /c FWW Bed to Chair Transfers Min Ax1 /c FWW OP Gait Assessment Gait Gait Assistance Required: Minimum Assistance 1 Person Assist Distance (Feet) 84 Assistive Devices Assistive Device Front Wheeled Walker Gait Deviations General Gait Pattern Ataxic Decreased Stride Length Decreased Feet Clearance Wide Based Gait Factors Limiting Gait Function Factors Limiting Gait Function Abnormal Tonal Influences Decreased Sensation Decreased Strength Poor Balance Poor Safety Awareness PT-OP-M Strength Start: 11/26/17 16:53 Freq: Status: Active Protocol: Document 11/18/18 16:00 DCW (Rec: 11/18/18 16:21 DCW [id number]) Hip Strength Hip Manual Muscle Testing Right Flexion (L2) 4 Good Abduction 4+ Good+ Adduction 5 Normal Left Flexion (L2) 4 Good Abduction 4+ Good+ Adduction 5 Normal Knee Strength Knee Manual Muscle Testing Right Flexion (S2) 4+ Good+ Extension (L3) 5 Normal Left Flexion (S2) 4+ Good+ Extension (L3) 5 Normal Ankle/Foot Strength Ankle and Foot Manual Muscle Testing Right Dorsiflexion (L4) 4+ Good+ Plantarflexion (S1) 3- Fair- Left Dorsiflexion (L4) 4+ Good+ Plantarflexion (S1) 3 Fair PT-OP-Q Treatments Start: 11/19/17 17:22 Freq: Status: Active Protocol: Document 01/20/19 16:00 DCW (Rec: 01/20/19 16:49 DCW [id number]) Cardio Equipment Upper Body Ergometer (UBE) Duration (Minutes) 6 RPM 60 Height 3 Other Forward/Backward Gym Equipment Therapeutic Ball 1 Exercise Details Hip Abduction/Adduction Ball Size/Color Red - 55 cm Lv 3 T-band Body Position Sitting Comments Foot on ball Therapeutic Exercises Sitting Exercises 6 Sitting Exercise Name Ankle Plantarflexion Side bilateral Resistance Lv 2 Equipment Used T-band 5 Sitting Exercise Name Adductor Ball Squeeze Side bilateral Resistance Small ball 4 Sitting Exercise Name Seated Marching Side bilateral Resistance 10# Equipment Used Ankle weights 3 Sitting Exercise Name LAQ Side bilateral Resistance 10# Equipment Used Ankle weights 2 Sitting Exercise Name Hip abduction Side bilateral Resistance Lv 3 Equipment Used T-band 1 Sitting Exercise Name Hamstring Curls Side bilateral Resistance Lv 3 Equipment Used T-band Neuro Re-Education Treatment Coordination Activities 1 Details Cone activities Equipment Cones Speed 10# ankle weight Comments Using feet to knock over cones for coordination training/ neuromuscular re-education PT-OP-T Assessment and Plan Start: 11/19/17 17:22 Freq: Status: Active Protocol: Document 01/20/19 16:00 DCW (Rec: 01/20/19 16:49 DCW [id number]) Physical Therapy Assessment Impairments Impairments Activity Tolerance Balance Coordination Functional Activities Functional Mobility Gait Posture ROM Soft Tissue Mobility Strength Tone Transfers Goals Four Impairment Static Standing Balance Bottle Hop Goal (LTG) Pt to stand with supervision assistance for 5 seconds without assistive device LTG Duration 02/18/19 Three Impairment Transfers Bottle Hop Goal (LTG) Pt to perform stand-pivot transfer CGA with FWW LTG Duration 02/18/19 Two Impairment Gait Alf Goal (LTG) Pt to ambulate 100' SBA /c FWW LTG Duration 02/18/19 One Impairment LE weakness Alf Goal (LTG) Ankle Plantarflexion to 3/5 bilaterally All remaining planes to 4/5 bilaterally LTG Duration 02/18/19 Progress Towards Goals Progress Towards Goals Slow Progress due to Medical Issues Progress Comments Multiple Sclerosis Assessment Summary Assessment Pt's sister reports that after getting the MRI result of a fracture, they scheduled an appointment with a local ortho , who looked at the MRI and determined it was not fractured, but they will be seeing the Ortho next week. Physical Therapy Plan Frequency and Duration Frequency of Treatment 1x/Week Duration of Treatment 3 months Plan of Care Start Date 11/18/18 Plan of Care End Date 02/18/19 Therapeutic Interventions Therapeutic Interventions Aquatic Therapy Gait Training Home Exercise Program Joint Mobilizations Neuromuscular Re-education Patient/Caregiver Education Self-Care/Home Management Therapeutic Activities Therapeutic Exercises Next Visit Focus/Plan Next Note Type Treatment Note Next Visit Plan Gait training, Balance, Activity tolerance, strengthening
--- NOTE | 2019-01-27 16:45 | PT.OTN ---
Current Diagnoses Multiple sclerosis (01/27/19) Muscle weakness (generalized) (01/27/19) Ataxic gait (01/27/19) Unsteadiness on feet (01/27/19) Physical Therapy Treatment Note PT-OP-A Visit Information Start: 11/19/17 17:22 Freq: Status: Active Protocol: Document 01/27/19 16:20 DCW (Rec: 01/27/19 16:45 DCW [id number]) Out-Patient Physical Therapy Visit Information Visit Information Visit Type Treatment Note Visit Note Pt arrived 20 minutes late due to mix up at her SN[facility] Visit Start Time 16:20 Visit Stop Time 16:45 Total Visit Minutes 25 Visit Number 92 Number of PIPE STEM SAWYER Visits 0 Evaluation Information Evaluation Date 02/06/16 PT-OP-B Current Condition Start: 11/26/17 16:53 Freq: Status: Active Protocol: Document 02/11/18 16:00 DCW (Rec: 02/11/18 16:19 DCW [id number]) Current Condition History of Current Condition History of Current Condition See Therapy Source for full patient history Treatment Goals Patient/Caregiver Goals Decrease burden of care Prior Functional Status Baseline Function- ADL's Needs Assist Baseline Function- Mobility Needs Assist Current Functional Impairments (Reported) Functional Limitations- Mobility/Gait Pt ambulates 80' CGA/Min Ax1 / c FWW Pt transfers stand-pivot Min Ax1 for balance and stability PT-OP-C Subjective Start: 11/19/17 17:22 Freq: Status: Active Protocol: Document 01/27/19 16:20 DCW (Rec: 01/27/19 16:45 DCW [id number]) OP-PT Subjective Patient Comments Patient Comments Per pt's sister, Dr Hunt feels that pt should begin to attempt to weight bear again, but would leave it up to the PT to determine if pt required a brace. PT-OP-D Balance Start: 11/26/17 16:53 Freq: Status: Active Protocol: Document 11/18/18 16:00 DCW (Rec: 11/18/18 16:21 DCW [id number]) OP-PT Balance Assessment Standing Balance Static Standing Balance Ability Fair Dynamic Standing Balance Ability Poor Standing Balance Comments Pt requires Mod Ax1 when standing without assistive device for 8 seconds Dorado Fall Scale Copyright Permission PT-OP-G Mobility & Gait Start: 11/26/17 16:53 Freq: Status: Active Protocol: Document 11/18/18 16:00 DCW (Rec: 11/18/18 16:21 DCW [id number]) OP Mobility Evaluation Transfers Sit to Stand Min Ax1 /c FWW Bed to Chair Transfers Min Ax1 /c FWW OP Gait Assessment Gait Gait Assistance Required: Minimum Assistance 1 Person Assist Distance (Feet) 84 Assistive Devices Assistive Device Front Wheeled Walker Gait Deviations General Gait Pattern Ataxic Decreased Stride Length Decreased Feet Clearance Wide Based Gait Factors Limiting Gait Function Factors Limiting Gait Function Abnormal Tonal Influences Decreased Sensation Decreased Strength Poor Balance Poor Safety Awareness PT-OP-M Strength Start: 11/26/17 16:53 Freq: Status: Active Protocol: Document 11/18/18 16:00 DCW (Rec: 11/18/18 16:21 DCW [id number]) Hip Strength Hip Manual Muscle Testing Right Flexion (L2) 4 Good Abduction 4+ Good+ Adduction 5 Normal Left Flexion (L2) 4 Good Abduction 4+ Good+ Adduction 5 Normal Knee Strength Knee Manual Muscle Testing Right Flexion (S2) 4+ Good+ Extension (L3) 5 Normal Left Flexion (S2) 4+ Good+ Extension (L3) 5 Normal Ankle/Foot Strength Ankle and Foot Manual Muscle Testing Right Dorsiflexion (L4) 4+ Good+ Plantarflexion (S1) 3- Fair- Left Dorsiflexion (L4) 4+ Good+ Plantarflexion (S1) 3 Fair PT-OP-Q Treatments Start: 11/19/17 17:22 Freq: Status: Active Protocol: Document 01/27/19 16:20 DCW (Rec: 01/27/19 16:45 DCW [id number]) Cardio Equipment Upper Body Ergometer (UBE) Duration (Minutes) 6 RPM 60 Height 3 Other Forward/Backward Gym Equipment Shuttle Recovery Unilateral Squats Resistance 37# Shuttle Recovery Platform Stable Bilateral Squats Resistance 75# Shuttle Recovery Platform Stable Therapeutic Exercises Sitting Exercises 5 Sitting Exercise Name Adductor Ball Squeeze Side bilateral Resistance Small ball 4 Sitting Exercise Name Seated Marching Side bilateral Resistance 10# Equipment Used Ankle weights 3 Sitting Exercise Name LAQ Side bilateral Resistance 10# Equipment Used Ankle weights PT-OP-T Assessment and Plan Start: 11/19/17 17:22 Freq: Status: Active Protocol: Document 01/27/19 16:20 DCW (Rec: 01/27/19 16:45 DCW [id number]) Physical Therapy Assessment Impairments Impairments Activity Tolerance Balance Coordination Functional Activities Functional Mobility Gait Posture ROM Soft Tissue Mobility Strength Tone Transfers Goals Four Impairment Static Standing Balance Prison Goal (LTG) Pt to stand with supervision assistance for 5 seconds without assistive device LTG Duration 02/18/19 Three Impairment Transfers Prison Goal (LTG) Pt to perform stand-pivot transfer CGA with FWW LTG Duration 02/18/19 Two Impairment Gait Timber Cruiser Goal (LTG) Pt to ambulate 100' SBA /c FWW LTG Duration 02/18/19 One Impairment LE weakness [employer] Cruiser Goal (LTG) Ankle Plantarflexion to 3/5 bilaterally All remaining planes to 4/5 bilaterally LTG Duration 02/18/19 Progress Towards Goals Progress Towards Goals Slow Progress due to Medical Issues Progress Comments Multiple Sclerosis Assessment Summary Assessment Pt tolerated standing well today, return to working toward increased weight-bearing. Hold off on ankle brace for now, pt did well enough without it for now. Physical Therapy Plan Frequency and Duration Frequency of Treatment 1x/Week Duration of Treatment 3 months Plan of Care Start Date 11/18/18 Plan of Care End Date 02/18/19 Therapeutic Interventions Therapeutic Interventions Aquatic Therapy Gait Training Home Exercise Program Joint Mobilizations Neuromuscular Re-education Patient/Caregiver Education Self-Care/Home Management Therapeutic Activities Therapeutic Exercises Next Visit Focus/Plan Next Note Type Treatment Note Next Visit Plan Gait training, Balance, Activity tolerance, strengthening
--- NOTE | 2019-02-03 16:44 | PT.OTN ---
Current Diagnoses Multiple sclerosis (02/03/19) Muscle weakness (generalized) (02/03/19) Ataxic gait (02/03/19) Unsteadiness on feet (02/03/19) Physical Therapy Treatment Note PT-OP-A Visit Information Start: 11/19/17 17:22 Freq: Status: Active Protocol: Document 02/03/19 16:00 DCW (Rec: 02/03/19 16:44 DCW [id number]) Out-Patient Physical Therapy Visit Information Visit Information Visit Type Treatment Note Visit Start Time 16:00 Visit Stop Time 16:45 Total Visit Minutes 45 Visit Number 93 Number of LOG CHIPPER OPERATOR Visits 0 Evaluation Information Evaluation Date 02/06/16 PT-OP-B Current Condition Start: 11/26/17 16:53 Freq: Status: Active Protocol: Document 02/11/18 16:00 DCW (Rec: 02/11/18 16:19 DCW [id number]) Current Condition History of Current Condition History of Current Condition See Therapy Source for full patient history Treatment Goals Patient/Caregiver Goals Decrease burden of care Prior Functional Status Baseline Function- ADL's Needs Assist Baseline Function- Mobility Needs Assist Current Functional Impairments (Reported) Functional Limitations- Mobility/Gait Pt ambulates 80' CGA/Min Ax1 / c FWW Pt transfers stand-pivot Min Ax1 for balance and stability PT-OP-C Subjective Start: 11/19/17 17:22 Freq: Status: Active Protocol: Document 02/03/19 16:00 DCW (Rec: 02/03/19 16:44 DCW [id number]) OP-PT Subjective Patient Comments Patient Comments Pt notes she feels tired today . PT-OP-D Balance Start: 11/26/17 16:53 Freq: Status: Active Protocol: Document 11/18/18 16:00 DCW (Rec: 11/18/18 16:21 DCW [id number]) OP-PT Balance Assessment Standing Balance Static Standing Balance Ability Fair Dynamic Standing Balance Ability Poor Standing Balance Comments Pt requires Mod Ax1 when standing without assistive device for 8 seconds Dorado Fall Scale Copyright Permission PT-OP-G Mobility & Gait Start: 11/26/17 16:53 Freq: Status: Active Protocol: Document 11/18/18 16:00 DCW (Rec: 11/18/18 16:21 DCW [id number]) OP Mobility Evaluation Transfers Sit to Stand Min Ax1 /c FWW Bed to Chair Transfers Min Ax1 /c FWW OP Gait Assessment Gait Gait Assistance Required: Minimum Assistance 1 Person Assist Distance (Feet) 84 Assistive Devices Assistive Device Front Wheeled Walker Gait Deviations General Gait Pattern Ataxic Decreased Stride Length Decreased Feet Clearance Wide Based Gait Factors Limiting Gait Function Factors Limiting Gait Function Abnormal Tonal Influences Decreased Sensation Decreased Strength Poor Balance Poor Safety Awareness PT-OP-M Strength Start: 11/26/17 16:53 Freq: Status: Active Protocol: Document 11/18/18 16:00 DCW (Rec: 11/18/18 16:21 DCW [id number]) Hip Strength Hip Manual Muscle Testing Right Flexion (L2) 4 Good Abduction 4+ Good+ Adduction 5 Normal Left Flexion (L2) 4 Good Abduction 4+ Good+ Adduction 5 Normal Knee Strength Knee Manual Muscle Testing Right Flexion (S2) 4+ Good+ Extension (L3) 5 Normal Left Flexion (S2) 4+ Good+ Extension (L3) 5 Normal Ankle/Foot Strength Ankle and Foot Manual Muscle Testing Right Dorsiflexion (L4) 4+ Good+ Plantarflexion (S1) 3- Fair- Left Dorsiflexion (L4) 4+ Good+ Plantarflexion (S1) 3 Fair PT-OP-Q Treatments Start: 11/19/17 17:22 Freq: Status: Active Protocol: Document 02/03/19 16:00 DCW (Rec: 02/03/19 16:44 DCW [id number]) Cardio Equipment Upper Body Ergometer (UBE) Duration (Minutes) 6 RPM 60 Height 3.5 Other Forward/Backward Gym Equipment Shuttle Recovery Unilateral Squats Resistance 37# R, 25# L Shuttle Recovery Platform Stable Bilateral Squats Resistance 75# Shuttle Recovery Platform Stable Therapeutic Exercises Sitting Exercises 5 Sitting Exercise Name Adductor Ball Squeeze Side bilateral Resistance Small ball 3 Sitting Exercise Name LAQ Side bilateral Resistance 10# Equipment Used Ankle weights 2 Sitting Exercise Name Hip abduction Side bilateral Resistance Lv 3 Equipment Used T-band 1 Sitting Exercise Name Hamstring Curls Side bilateral Resistance Lv 3 Equipment Used T-band Standing Exercises Hamstring Curls Standing Exercise Name HS curls @ rail Reps/Minutes 2x5 Hip Abduction Standing Exercise Name Hip Abduction @ rail Reps/Minutes 2x5 Marching Standing Exercise Name Standing Marching @ rail Reps/Minutes 2x5 Gait Training Gait Activity 1 Device Used FWW Level of Assistance Mod Ax1 /c w/c follow Surface Level Distance/Duration 65' x1, 20' x1 Treatment Focus Knee extension/quad activation , activity tolerance PT-OP-T Assessment and Plan Start: 11/19/17 17:22 Freq: Status: Active Protocol: Document 02/03/19 16:00 DCW (Rec: 02/03/19 16:44 DCW [id number]) Physical Therapy Assessment Impairments Impairments Activity Tolerance Balance Coordination Functional Activities Functional Mobility Gait Posture ROM Soft Tissue Mobility Strength Tone Transfers Goals Four Impairment Static Standing Balance Senior Living Goal (LTG) Pt to stand with supervision assistance for 5 seconds without assistive device LTG Duration 02/18/19 Three Impairment Transfers Wire Spinner Goal (LTG) Pt to perform stand-pivot transfer CGA with FWW LTG Duration 02/18/19 Two Impairment Gait Senior Living Goal (LTG) Pt to ambulate 100' SBA /c FWW LTG Duration 02/18/19 One Impairment LE weakness Wire Spinner Goal (LTG) Ankle Plantarflexion to 3/5 bilaterally All remaining planes to 4/5 bilaterally LTG Duration 02/18/19 Progress Towards Goals Progress Towards Goals Slow Progress due to Medical Issues Progress Comments Multiple Sclerosis Assessment Summary Assessment Pt again did well walking today, able to increase her distance and displayed good turns during her transfers. Physical Therapy Plan Frequency and Duration Frequency of Treatment 1x/Week Duration of Treatment 3 months Plan of Care Start Date 11/18/18 Plan of Care End Date 02/18/19 Therapeutic Interventions Therapeutic Interventions Aquatic Therapy Gait Training Home Exercise Program Joint Mobilizations Neuromuscular Re-education Patient/Caregiver Education Self-Care/Home Management Therapeutic Activities Therapeutic Exercises Next Visit Focus/Plan Next Note Type Treatment Note Next Visit Plan Gait training, Balance, Activity tolerance, strengthening
--- NOTE | 2019-02-10 16:27 | PT.OTN ---
Current Diagnoses Multiple sclerosis (02/10/19) Muscle weakness (generalized) (02/10/19) Ataxic gait (02/10/19) Unsteadiness on feet (02/10/19) Physical Therapy Treatment Note PT-OP-A Visit Information Start: 11/19/17 17:22 Freq: Status: Active Protocol: Document 02/10/19 16:00 DCW (Rec: 02/10/19 16:27 DCW [id number]) Out-Patient Physical Therapy Visit Information Visit Information Visit Type Treatment Note Visit Start Time 16:00 Visit Stop Time 16:15 Total Visit Minutes 15 Visit Number 94 Number of CONFIGURATION MANAGEMENT CONSULTANT Visits 0 Evaluation Information Evaluation Date 02/06/16 PT-OP-B Current Condition Start: 11/26/17 16:53 Freq: Status: Active Protocol: Document 02/11/18 16:00 DCW (Rec: 02/11/18 16:19 DCW [id number]) Current Condition History of Current Condition History of Current Condition See Therapy Source for full patient history Treatment Goals Patient/Caregiver Goals Decrease burden of care Prior Functional Status Baseline Function- ADL's Needs Assist Baseline Function- Mobility Needs Assist Current Functional Impairments (Reported) Functional Limitations- Mobility/Gait Pt ambulates 80' CGA/Min Ax1 / c FWW Pt transfers stand-pivot Min Ax1 for balance and stability PT-OP-C Subjective Start: 11/19/17 17:22 Freq: Status: Active Protocol: Document 02/10/19 16:00 DCW (Rec: 02/10/19 16:27 DCW [id number]) OP-PT Subjective Patient Comments Patient Comments I'm really tired today. PT-OP-D Balance Start: 11/26/17 16:53 Freq: Status: Active Protocol: Document 11/18/18 16:00 DCW (Rec: 11/18/18 16:21 DCW [id number]) OP-PT Balance Assessment Standing Balance Static Standing Balance Ability Fair Dynamic Standing Balance Ability Poor Standing Balance Comments Pt requires Mod Ax1 when standing without assistive device for 8 seconds Dorado Fall Scale Copyright Permission PT-OP-G Mobility & Gait Start: 11/26/17 16:53 Freq: Status: Active Protocol: Document 11/18/18 16:00 DCW (Rec: 11/18/18 16:21 DCW [id number]) OP Mobility Evaluation Transfers Sit to Stand Min Ax1 /c FWW Bed to Chair Transfers Min Ax1 /c FWW OP Gait Assessment Gait Gait Assistance Required: Minimum Assistance 1 Person Assist Distance (Feet) 84 Assistive Devices Assistive Device Front Wheeled Walker Gait Deviations General Gait Pattern Ataxic Decreased Stride Length Decreased Feet Clearance Wide Based Gait Factors Limiting Gait Function Factors Limiting Gait Function Abnormal Tonal Influences Decreased Sensation Decreased Strength Poor Balance Poor Safety Awareness PT-OP-M Strength Start: 11/26/17 16:53 Freq: Status: Active Protocol: Document 11/18/18 16:00 DCW (Rec: 11/18/18 16:21 DCW [id number]) Hip Strength Hip Manual Muscle Testing Right Flexion (L2) 4 Good Abduction 4+ Good+ Adduction 5 Normal Left Flexion (L2) 4 Good Abduction 4+ Good+ Adduction 5 Normal Knee Strength Knee Manual Muscle Testing Right Flexion (S2) 4+ Good+ Extension (L3) 5 Normal Left Flexion (S2) 4+ Good+ Extension (L3) 5 Normal Ankle/Foot Strength Ankle and Foot Manual Muscle Testing Right Dorsiflexion (L4) 4+ Good+ Plantarflexion (S1) 3- Fair- Left Dorsiflexion (L4) 4+ Good+ Plantarflexion (S1) 3 Fair PT-OP-Q Treatments Start: 11/19/17 17:22 Freq: Status: Active Protocol: Document 02/10/19 16:00 DCW (Rec: 02/10/19 16:27 [employer] [id number]) Gait Training Gait Activity 1 Device Used FWW Level of Assistance Mod Ax1 /c w/c follow Surface Level Distance/Duration 15' x3 Treatment Focus Knee extension/quad activation , activity tolerance PT-OP-T Assessment and Plan Start: 11/19/17 17:22 Freq: Status: Active Protocol: Document 02/10/19 16:00 DCW (Rec: 02/10/19 16:27 DCW [id number]) Physical Therapy Assessment Impairments Impairments Activity Tolerance Balance Coordination Functional Activities Functional Mobility Gait Posture ROM Soft Tissue Mobility Strength Tone Transfers Goals Four Impairment Static Standing Balance Slot Technician Goal (LTG) Pt to stand with supervision assistance for 5 seconds without assistive device LTG Duration 02/18/19 Three Impairment Transfers Retirement Goal (LTG) Pt to perform stand-pivot transfer CGA with FWW LTG Duration 02/18/19 Two Impairment Gait Slot Technician Goal (LTG) Pt to ambulate 100' SBA /c FWW LTG Duration 02/18/19 One Impairment LE weakness Retirement Goal (LTG) Ankle Plantarflexion to 3/5 bilaterally All remaining planes to 4/5 bilaterally LTG Duration 02/18/19 Progress Towards Goals Progress Towards Goals Slow Progress due to Medical Issues Progress Comments Multiple Sclerosis Assessment Summary Assessment Pt walked ~15' two times, and then sat down, said she refused to do anything else because she was too tired, and insisted she be returned to her room. Her family was able to talk her into one more attempt at walking, however pt would do nothing further. Physical Therapy Plan Frequency and Duration Frequency of Treatment 1x/Week Duration of Treatment 3 months Plan of Care Start Date 11/18/18 Plan of Care End Date 02/18/19 Therapeutic Interventions Therapeutic Interventions Aquatic Therapy Gait Training Home Exercise Program Joint Mobilizations Neuromuscular Re-education Patient/Caregiver Education Self-Care/Home Management Therapeutic Activities Therapeutic Exercises Next Visit Focus/Plan Next Note Type Treatment Note Next Visit Plan Gait training, Balance, Activity tolerance, strengthening
--- NOTE | 2019-03-03 12:51 | PT.OTN ---
Current Diagnoses Multiple sclerosis (03/03/19) Muscle weakness (generalized) (03/03/19) Ataxic gait (03/03/19) Unsteadiness on feet (03/03/19) Physical Therapy Treatment Note PT-OP-A Visit Information Start: 11/19/17 17:22 Freq: Status: Active Protocol: Document 03/03/19 12:00 DCW (Rec: 03/03/19 12:51 DCW [id number]) Out-Patient Physical Therapy Visit Information Visit Information Visit Type Progress Note Visit Start Time 12:00 Visit Stop Time 12:45 Total Visit Minutes 45 Visit Number 95 Number of CARD BOXER Visits 0 Evaluation Information Evaluation Date 02/06/16 PT-OP-B Current Condition Start: 11/26/17 16:53 Freq: Status: Active Protocol: Document 02/11/18 16:00 DCW (Rec: 02/11/18 16:19 DCW [id number]) Current Condition History of Current Condition History of Current Condition See Therapy Source for full patient history Treatment Goals Patient/Caregiver Goals Decrease burden of care Prior Functional Status Baseline Function- ADL's Needs Assist Baseline Function- Mobility Needs Assist Current Functional Impairments (Reported) Functional Limitations- Mobility/Gait Pt ambulates 80' CGA/Min Ax1 / c FWW Pt transfers stand-pivot Min Ax1 for balance and stability PT-OP-C Subjective Start: 11/19/17 17:22 Freq: Status: Active Protocol: Document 03/03/19 12:00 DCW (Rec: 03/03/19 12:51 DCW [id number]) OP-PT Subjective Patient Comments Patient Comments Pt suggests she should not need to walk when she comes in to therapy, because she does it all the time in her room at home when no one else is there. After a brief discussion, pt relented and was agreeable to therapy. PT-OP-D Balance Start: 11/26/17 16:53 Freq: Status: Active Protocol: Document 03/03/19 12:00 DCW (Rec: 03/03/19 12:21 DCW [id number]) OP-PT Balance Assessment Standing Balance Static Standing Balance Ability Fair Dynamic Standing Balance Ability Poor Standing Balance Comments Pt requires Mod Ax1 when standing without assistive device for 9 seconds Dorado Fall Scale Copyright Permission PT-OP-G Mobility & Gait Start: 11/26/17 16:53 Freq: Status: Active Protocol: Document 03/03/19 12:00 DCW (Rec: 03/03/19 12:21 DCW [id number]) OP Mobility Evaluation Transfers Sit to Stand Min Ax1 /c FWW Bed to Chair Transfers Min Ax1 /c FWW OP Gait Assessment Gait Gait Assistance Required: Minimum Assistance 1 Person Assist Distance (Feet) 49 Assistive Devices Assistive Device Front Wheeled Walker Gait Deviations General Gait Pattern Ataxic Decreased Stride Length Decreased Feet Clearance Wide Based Gait Factors Limiting Gait Function Factors Limiting Gait Function Abnormal Tonal Influences Decreased Sensation Decreased Strength Poor Balance Poor Safety Awareness PT-OP-M Strength Start: 11/26/17 16:53 Freq: Status: Active Protocol: Document 03/03/19 12:00 DCW (Rec: 03/03/19 12:21 DCW [id number]) Hip Strength Hip Manual Muscle Testing Right Flexion (L2) 4 Good Abduction 4+ Good+ Adduction 5 Normal Left Flexion (L2) 4 Good Abduction 4+ Good+ Adduction 5 Normal Knee Strength Knee Manual Muscle Testing Right Flexion (S2) 4+ Good+ Extension (L3) 5 Normal Left Flexion (S2) 4+ Good+ Extension (L3) 5 Normal Ankle/Foot Strength Ankle and Foot Manual Muscle Testing Right Dorsiflexion (L4) 4+ Good+ Plantarflexion (S1) 3- Fair- Left Dorsiflexion (L4) 4+ Good+ Plantarflexion (S1) 3 Fair PT-OP-Q Treatments Start: 11/19/17 17:22 Freq: Status: Active Protocol: Document 03/03/19 12:00 DCW (Rec: 03/03/19 12:51 DCW [id number]) Cardio Equipment Upper Body Ergometer (UBE) Duration (Minutes) 6 RPM 60 Height 3.5 Other Forward/Backward Gym Equipment Shuttle Recovery Unilateral Squats Resistance 37# R, 25# L Shuttle Recovery Platform Stable Bilateral Squats Resistance 75# Shuttle Recovery Platform Stable Therapeutic Exercises Sitting Exercises 5 Sitting Exercise Name Adductor Ball Squeeze Side bilateral Resistance Small ball 4 Sitting Exercise Name Seated Marching Side bilateral Resistance 10# Equipment Used Ankle weights 3 Sitting Exercise Name LAQ Side bilateral Resistance 10# Equipment Used Ankle weights 2 Sitting Exercise Name Hip abduction Side bilateral Resistance Lv 3 Equipment Used T-band 1 Sitting Exercise Name Hamstring Curls Side bilateral Resistance Lv 3 Equipment Used T-band Standing Exercises Hamstring Curls Standing Exercise Name HS curls @ rail Reps/Minutes 2x5 Hip Abduction Standing Exercise Name Hip Abduction @ rail Reps/Minutes 2x5 Marching Standing Exercise Name Standing Marching @ rail Reps/Minutes 2x5 PT-OP-T Assessment and Plan Start: 11/19/17 17:22 Freq: Status: Active Protocol: Document 03/03/19 12:00 DCW (Rec: 03/03/19 12:51 DCW [id number]) Physical Therapy Assessment Impairments Impairments Activity Tolerance Balance Coordination Functional Activities Functional Mobility Gait Posture ROM Soft Tissue Mobility Strength Tone Transfers Goals Four Impairment Static Standing Balance Nursing Home Goal (LTG) Pt to stand with supervision assistance for 5 seconds without assistive device LTG Duration 02/18/19 Three Impairment Transfers [employer] Department Head Goal (LTG) Pt to perform stand-pivot transfer CGA with FWW LTG Duration 02/18/19 Two Impairment Gait [employer] Department Head Goal (LTG) Pt to ambulate 100' SBA /c FWW LTG Duration 02/18/19 One Impairment LE weakness Nursing Home Goal (LTG) Ankle Plantarflexion to 3/5 bilaterally All remaining planes to 4/5 bilaterally LTG Duration 02/18/19 Progress Towards Goals Progress Towards Goals Slow Progress due to Medical Issues Progress Comments Multiple Sclerosis Assessment Summary Assessment Pt's overall objective measures are largely similar to her past reassessment. Her gait distance varies visit-to- visit with fatigue and motivation levels, but overall she has remained fairly constant, which is likely as best as can be expected with a chronic, progressive disease such as MS. Pt's motivation has dropped quite dramatically in the past month, and if this continues, pt may eventually need to discharge from therapy just to give her a mental and physical break for a month or two. This will be assessed at a later time. Physical Therapy Plan Frequency and Duration Frequency of Treatment 1x/Week Duration of Treatment 3 months Plan of Care Start Date 03/03/19 Plan of Care End Date 06/03/19 Therapeutic Interventions Therapeutic Interventions Aquatic Therapy Gait Training Home Exercise Program Joint Mobilizations Neuromuscular Re-education Patient/Caregiver Education Self-Care/Home Management Therapeutic Activities Therapeutic Exercises Next Visit Focus/Plan Next Note Type Treatment Note Next Visit Plan Gait training, Balance, Activity tolerance, strengthening
--- NOTE | 2019-03-03 12:51 | PT.OPPOC ---
Current Diagnoses Multiple sclerosis (03/03/19) Muscle weakness (generalized) (03/03/19) Ataxic gait (03/03/19) Unsteadiness on feet (03/03/19) Provider Visit Care Team Role Provider Type Dariana Stratton DO Attending Provider Physician Family Provider Primary Care Provider Specialty: Family Practice Address: [address] [place] [address], [facility] Email: [email or web address] Plan Of Care PT-OP-T Assessment and Plan Start: 11/19/17 17:22 Freq: Status: Active Protocol: Document 03/03/19 12:00 DCW (Rec: 03/03/19 12:51 DCW [id number]) Physical Therapy Assessment Impairments Impairments Activity Tolerance Balance Coordination Functional Activities Functional Mobility Gait Posture ROM Soft Tissue Mobility Strength Tone Transfers Goals Four Impairment Static Standing Balance Detention Goal (LTG) Pt to stand with supervision assistance for 5 seconds without assistive device LTG Duration 02/18/19 Three Impairment Transfers Detention Goal (LTG) Pt to perform stand-pivot transfer CGA with FWW LTG Duration 02/18/19 Two Impairment Gait Detention Goal (LTG) Pt to ambulate 100' SBA /c FWW LTG Duration 02/18/19 One Impairment LE weakness Patient Service Specialist Goal (LTG) Ankle Plantarflexion to 3/5 bilaterally All remaining planes to 4/5 bilaterally LTG Duration 02/18/19 Progress Towards Goals Progress Towards Goals Slow Progress due to Medical Issues Progress Comments Multiple Sclerosis Assessment Summary Assessment Pt's overall objective measures are largely similar to her past reassessment. Her gait distance varies visit-to- visit with fatigue and motivation levels, but overall she has remained fairly constant, which is likely as best as can be expected with a chronic, progressive disease such as MS. Pt's motivation has dropped quite dramatically in the past month, and if this continues, pt may eventually need to discharge from therapy just to give her a mental and physical break for a month or two. This will be assessed at a later time. Physical Therapy Plan Frequency and Duration Frequency of Treatment 1x/Week Duration of Treatment 3 months Plan of Care Start Date 03/03/19 Plan of Care End Date 06/03/19 Therapeutic Interventions Therapeutic Interventions Aquatic Therapy Gait Training Home Exercise Program Joint Mobilizations Neuromuscular Re-education Patient/Caregiver Education Self-Care/Home Management Therapeutic Activities Therapeutic Exercises Next Visit Focus/Plan Next Note Type Treatment Note Next Visit Plan Gait training, Balance, Activity tolerance, strengthening Plan of Care Dates Plan of Care Start Date 03/03/19 Plan of Care End Date 06/03/19 Please Sign and Return: I have reviewed this Plan of Care and certify that the skilled therapy services above are required to meet the patient?s needs. Physician Signature Date Printed Name and Credentials Clinical Instructor Signature Printed Name and Credentials
--- NOTE | 2019-03-03 12:52 | PT.OPPOC ---
Current Diagnoses Multiple sclerosis (03/03/19) Muscle weakness (generalized) (03/03/19) Ataxic gait (03/03/19) Unsteadiness on feet (03/03/19) Provider Visit Care Team Role Provider Type Dariana Stratton DO Attending Provider Physician Family Provider Primary Care Provider Specialty: Family Practice Address: [address] [place] [address], [employer] Email: [email or web address] Plan Of Care PT-OP-T Assessment and Plan Start: 11/19/17 17:22 Freq: Status: Active Protocol: Document 03/03/19 12:00 DCW (Rec: 03/03/19 12:51 DCW [id number]) Physical Therapy Assessment Impairments Impairments Activity Tolerance Balance Coordination Functional Activities Functional Mobility Gait Posture ROM Soft Tissue Mobility Strength Tone Transfers Goals Four Impairment Static Standing Balance Nursing Home Goal (LTG) Pt to stand with supervision assistance for 5 seconds without assistive device LTG Duration 02/18/19 Three Impairment Transfers Nursing Home Goal (LTG) Pt to perform stand-pivot transfer CGA with FWW LTG Duration 02/18/19 Two Impairment Gait Nursing Home Goal (LTG) Pt to ambulate 100' SBA /c FWW LTG Duration 02/18/19 One Impairment LE weakness Research Program Assistant Goal (LTG) Ankle Plantarflexion to 3/5 bilaterally All remaining planes to 4/5 bilaterally LTG Duration 02/18/19 Progress Towards Goals Progress Towards Goals Slow Progress due to Medical Issues Progress Comments Multiple Sclerosis Assessment Summary Assessment Pt's overall objective measures are largely similar to her past reassessment. Her gait distance varies visit-to- visit with fatigue and motivation levels, but overall she has remained fairly constant, which is likely as best as can be expected with a chronic, progressive disease such as MS. Pt's motivation has dropped quite dramatically in the past month, and if this continues, pt may eventually need to discharge from therapy just to give her a mental and physical break for a month or two. This will be assessed at a later time. Physical Therapy Plan Frequency and Duration Frequency of Treatment 1x/Week Duration of Treatment 3 months Plan of Care Start Date 03/03/19 Plan of Care End Date 06/03/19 Therapeutic Interventions Therapeutic Interventions Aquatic Therapy Gait Training Home Exercise Program Joint Mobilizations Neuromuscular Re-education Patient/Caregiver Education Self-Care/Home Management Therapeutic Activities Therapeutic Exercises Next Visit Focus/Plan Next Note Type Treatment Note Next Visit Plan Gait training, Balance, Activity tolerance, strengthening Plan of Care Dates Plan of Care Start Date 03/03/19 Plan of Care End Date 06/03/19 Please Sign and Return: I have reviewed this Plan of Care and certify that the skilled therapy services above are required to meet the patient?s needs. Physician Signature Date Printed Name and Credentials Clinical Instructor Signature Printed Name and Credentials
--- NOTE | 2019-03-09 16:47 | PT.OTN ---
Current Diagnoses Multiple sclerosis (03/09/19) Muscle weakness (generalized) (03/09/19) Ataxic gait (03/09/19) Unsteadiness on feet (03/09/19) Physical Therapy Treatment Note PT-OP-A Visit Information Start: 11/19/17 17:22 Freq: Status: Active Protocol: Document 03/09/19 16:00 DCW (Rec: 03/09/19 16:47 DCW [id number]) Out-Patient Physical Therapy Visit Information Visit Information Visit Type Treatment Note Visit Start Time 16:00 Visit Stop Time 16:45 Total Visit Minutes 45 Visit Number 96 Number of TRUCK LOADER Visits 0 Evaluation Information Evaluation Date 02/06/16 PT-OP-B Current Condition Start: 11/26/17 16:53 Freq: Status: Active Protocol: Document 02/11/18 16:00 DCW (Rec: 02/11/18 16:19 DCW [id number]) Current Condition History of Current Condition History of Current Condition See Therapy Source for full patient history Treatment Goals Patient/Caregiver Goals Decrease burden of care Prior Functional Status Baseline Function- ADL's Needs Assist Baseline Function- Mobility Needs Assist Current Functional Impairments (Reported) Functional Limitations- Mobility/Gait Pt ambulates 80' CGA/Min Ax1 / c FWW Pt transfers stand-pivot Min Ax1 for balance and stability PT-OP-C Subjective Start: 11/19/17 17:22 Freq: Status: Active Protocol: Document 03/09/19 16:00 DCW (Rec: 03/09/19 16:47 DCW [id number]) OP-PT Subjective Patient Comments Patient Comments Pt reports she is a little stuffed up today, but overall is feeling well. PT-OP-D Balance Start: 11/26/17 16:53 Freq: Status: Active Protocol: Document 03/03/19 12:00 DCW (Rec: 03/03/19 12:21 DCW [id number]) OP-PT Balance Assessment Standing Balance Static Standing Balance Ability Fair Dynamic Standing Balance Ability Poor Standing Balance Comments Pt requires Mod Ax1 when standing without assistive device for 9 seconds Dorado Fall Scale Copyright Permission PT-OP-G Mobility & Gait Start: 11/26/17 16:53 Freq: Status: Active Protocol: Document 03/03/19 12:00 DCW (Rec: 03/03/19 12:21 DCW [id number]) OP Mobility Evaluation Transfers Sit to Stand Min Ax1 /c FWW Bed to Chair Transfers Min Ax1 /c FWW OP Gait Assessment Gait Gait Assistance Required: Minimum Assistance,1 Person Assist Distance (Feet) 49 Assistive Devices Assistive Device Front Wheeled Walker Gait Deviations General Gait Pattern Ataxic,Decreased Stride Length ,Decreased Feet Clearance,Wide Based Gait Factors Limiting Gait Function Factors Limiting Gait Function Abnormal Tonal Influences, Decreased Sensation,Decreased Strength,Poor Balance,Poor Safety Awareness PT-OP-M Strength Start: 11/26/17 16:53 Freq: Status: Active Protocol: Document 03/03/19 12:00 DCW (Rec: 03/03/19 12:21 DCW [id number]) Hip Strength Hip Manual Muscle Testing Right Flexion (L2) 4 Good Abduction 4+ Good+ Adduction 5 Normal Left Flexion (L2) 4 Good Abduction 4+ Good+ Adduction 5 Normal Knee Strength Knee Manual Muscle Testing Right Flexion (S2) 4+ Good+ Extension (L3) 5 Normal Left Flexion (S2) 4+ Good+ Extension (L3) 5 Normal Ankle/Foot Strength Ankle and Foot Manual Muscle Testing Right Dorsiflexion (L4) 4+ Good+ Plantarflexion (S1) 3- Fair- Left Dorsiflexion (L4) 4+ Good+ Plantarflexion (S1) 3 Fair PT-OP-Q Treatments Start: 11/19/17 17:22 Freq: Status: Active Protocol: Document 03/09/19 16:00 DCW (Rec: 03/09/19 16:47 DCW [id number]) Cardio Equipment Upper Body Ergometer (UBE) Duration (Minutes) 6 RPM 60 Height 3.5 Other Forward/Backward Gym Equipment Shuttle Recovery Unilateral Squats Resistance 37# R, 25# L Shuttle Recovery Platform Stable Bilateral Squats Resistance 75# Shuttle Recovery Platform Stable Therapeutic Exercises Sitting Exercises 5 Sitting Exercise Name Adductor Ball Squeeze Side bilateral Resistance Small ball 4 Sitting Exercise Name Seated Marching Side bilateral Resistance 10# Equipment Used Ankle weights 3 Sitting Exercise Name LAQ Side bilateral Resistance 10# Equipment Used Ankle weights 2 Sitting Exercise Name Hip abduction Side bilateral Resistance Lv 3 Equipment Used T-band 1 Sitting Exercise Name Hamstring Curls Side bilateral Resistance Lv 3 Equipment Used T-band Gait Training Gait Activity 1 Device Used W Level of Assistance Mod Ax1 /c w/c follow Surface Level Distance/Duration 50' x1, 30' x1 Treatment Focus Knee extension/quad activation , activity tolerance Neuro Re-Education Treatment Coordination Activities 1 Details Cone activities Equipment Cones Speed 10# ankle weight Comments Using feet to knock over cones for coordination training/ neuromuscular re-education PT-OP-T Assessment and Plan Start: 11/19/17 17:22 Freq: Status: Active Protocol: Document 03/09/19 16:00 DCW (Rec: 03/09/19 16:47 DCW [id number]) Physical Therapy Assessment Impairments Impairments Activity Tolerance,Balance, Coordination,Functional Activities,Functional Mobility ,Gait,Posture,ROM,Soft Tissue Mobility,Strength,Tone, Transfers Goals Four Impairment Static Standing Balance Prison Goal (LTG) Pt to stand with supervision assistance for 5 seconds without assistive device LTG Duration 02/18/19 Three Impairment Transfers Low Vision Therapist Goal (LTG) Pt to perform stand-pivot transfer CGA with FWW LTG Duration 02/18/19 Two Impairment Gait Low Vision Therapist Goal (LTG) Pt to ambulate 100' SBA /c FWW LTG Duration 02/18/19 One Impairment LE weakness Prison Goal (LTG) Ankle Plantarflexion to 3/5 bilaterally All remaining planes to 4/5 bilaterally LTG Duration 02/18/19 Progress Towards Goals Progress Towards Goals Slow Progress due to Medical Issues Progress Comments Multiple Sclerosis Assessment Summary Assessment Pt had an excellent session today, much more open to ambulation and worked hard on her TherEx. Physical Therapy Plan Frequency and Duration Frequency of Treatment 1x/Week Duration of Treatment 3 months Plan of Care Start Date 03/03/19 Plan of Care End Date 06/03/19 Therapeutic Interventions Therapeutic Interventions Aquatic Therapy,Gait Training, Home Exercise Program,Joint Mobilizations,Neuromuscular Re -education,Patient/Caregiver Education,Self-Care/Home Management,Therapeutic Activities,Therapeutic Exercises Next Visit Focus/Plan Next Note Type Treatment Note Next Visit Plan Gait training, Balance, Activity tolerance, strengthening
--- NOTE | 2019-03-23 16:47 | PT.OTN ---
Current Diagnoses Multiple sclerosis (03/23/19) Muscle weakness (generalized) (03/23/19) Ataxic gait (03/23/19) Unsteadiness on feet (03/23/19) Physical Therapy Treatment Note PT-OP-A Visit Information Start: 11/19/17 17:22 Freq: Status: Active Protocol: Document 03/23/19 16:00 DCW (Rec: 03/23/19 16:46 DCW [id number]) Out-Patient Physical Therapy Visit Information Visit Information Visit Type Treatment Note Visit Start Time 16:00 Visit Stop Time 16:45 Total Visit Minutes 45 Visit Number 97 Number of INTERVENTIONAL RADIOLOGIST Visits 0 Evaluation Information Evaluation Date 02/06/16 PT-OP-B Current Condition Start: 11/26/17 16:53 Freq: Status: Active Protocol: Document 02/11/18 16:00 DCW (Rec: 02/11/18 16:19 DCW [id number]) Current Condition History of Current Condition History of Current Condition See Therapy Source for full patient history Treatment Goals Patient/Caregiver Goals Decrease burden of care Prior Functional Status Baseline Function- ADL's Needs Assist Baseline Function- Mobility Needs Assist Current Functional Impairments (Reported) Functional Limitations- Mobility/Gait Pt ambulates 80' CGA/Min Ax1 / c FWW Pt transfers stand-pivot Min Ax1 for balance and stability PT-OP-C Subjective Start: 11/19/17 17:22 Freq: Status: Active Protocol: Document 03/23/19 16:00 DCW (Rec: 03/23/19 16:46 DCW [id number]) OP-PT Subjective Patient Comments Patient Comments Pt has unfortunately suffered two falls since she was last in to physical therapy, the first one resulting in a bruised left ankle, lateral forefoot, and broken fifth phalange. Pt was put in a walking boot for protection, but informed that she could participate in PT and continue to work on ambulation. Pt's second fall just occurred today, when her feet slid out from under her in the shower, and she slid down the wall and landed on her backside, which she reports feels bruised, but overall is uninjured from that fall. PT-OP-D Balance Start: 11/26/17 16:53 Freq: Status: Active Protocol: Document 03/03/19 12:00 DCW (Rec: 03/03/19 12:21 DCW [id number]) OP-PT Balance Assessment Standing Balance Static Standing Balance Ability Fair Dynamic Standing Balance Ability Poor Standing Balance Comments Pt requires Mod Ax1 when standing without assistive device for 9 seconds Dorado Fall Scale Copyright Permission PT-OP-G Mobility & Gait Start: 11/26/17 16:53 Freq: Status: Active Protocol: Document 03/03/19 12:00 DCW (Rec: 03/03/19 12:21 DCW [id number]) OP Mobility Evaluation Transfers Sit to Stand Min Ax1 /c FWW Bed to Chair Transfers Min Ax1 /c FWW OP Gait Assessment Gait Gait Assistance Required: Minimum Assistance,1 Person Assist Distance (Feet) 49 Assistive Devices Assistive Device Front Wheeled Walker Gait Deviations General Gait Pattern Ataxic,Decreased Stride Length ,Decreased Feet Clearance,Wide Based Gait Factors Limiting Gait Function Factors Limiting Gait Function Abnormal Tonal Influences, Decreased Sensation,Decreased Strength,Poor Balance,Poor Safety Awareness PT-OP-M Strength Start: 11/26/17 16:53 Freq: Status: Active Protocol: Document 03/03/19 12:00 DCW (Rec: 03/03/19 12:21 DCW [id number]) Hip Strength Hip Manual Muscle Testing Right Flexion (L2) 4 Good Abduction 4+ Good+ Adduction 5 Normal Left Flexion (L2) 4 Good Abduction 4+ Good+ Adduction 5 Normal Knee Strength Knee Manual Muscle Testing Right Flexion (S2) 4+ Good+ Extension (L3) 5 Normal Left Flexion (S2) 4+ Good+ Extension (L3) 5 Normal Ankle/Foot Strength Ankle and Foot Manual Muscle Testing Right Dorsiflexion (L4) 4+ Good+ Plantarflexion (S1) 3- Fair- Left Dorsiflexion (L4) 4+ Good+ Plantarflexion (S1) 3 Fair PT-OP-Q Treatments Start: 11/19/17 17:22 Freq: Status: Active Protocol: Document 03/23/19 16:00 DCW (Rec: 03/23/19 16:46 DCW [id number]) Cardio Equipment Upper Body Ergometer (UBE) Duration (Minutes) 6 RPM 60 Height 3.5 Other Forward/Backward Gym Equipment Shuttle Recovery Unilateral Squats Resistance 37# R, 25# L Shuttle Recovery Platform Stable Bilateral Squats Resistance 75# Shuttle Recovery Platform Stable Therapeutic Exercises Sitting Exercises 7 Sitting Exercise Name Seated PPT /c TrA contraction Reps/Minutes 5 hold Comments HEP Standing Exercises Hamstring Curls Standing Exercise Name HS curls @ rail Reps/Minutes 2x5 Hip Abduction Standing Exercise Name Hip Abduction @ rail Reps/Minutes 2x5 Marching Standing Exercise Name Standing Marching @ rail Reps/Minutes 2x5 Gait Training Gait Activity 1 Device Used FWW Level of Assistance Mod Ax1 /c w/c follow Surface Level Distance/Duration 20' x2, 60' x1 Treatment Focus Knee extension/quad activation , activity tolerance PT-OP-T Assessment and Plan Start: 11/19/17 17:22 Freq: Status: Active Protocol: Document 03/23/19 16:00 DCW (Rec: 03/23/19 16:46 DCW [id number]) Physical Therapy Assessment Impairments Impairments Activity Tolerance,Balance, Coordination,Functional Activities,Functional Mobility ,Gait,Posture,ROM,Soft Tissue Mobility,Strength,Tone, Transfers Goals Four Impairment Static Standing Balance White Washer Goal (LTG) Pt to stand with supervision assistance for 5 seconds without assistive device LTG Duration 02/18/19 Three Impairment Transfers Custodial Goal (LTG) Pt to perform stand-pivot transfer CGA with FWW LTG Duration 02/18/19 Two Impairment Gait White Washer Goal (LTG) Pt to ambulate 100' SBA /c FWW LTG Duration 02/18/19 One Impairment LE weakness Custodial Goal (LTG) Ankle Plantarflexion to 3/5 bilaterally All remaining planes to 4/5 bilaterally LTG Duration 02/18/19 Progress Towards Goals Progress Towards Goals Slow Progress due to Medical Issues Progress Comments Multiple Sclerosis Assessment Summary Assessment Pt actually did very well with ambulating in her boot today, less instability and fewer complaints about fatigue. Physical Therapy Plan Frequency and Duration Frequency of Treatment 1x/Week Duration of Treatment 3 months Plan of Care Start Date 03/03/19 Plan of Care End Date 06/03/19 Therapeutic Interventions Therapeutic Interventions Aquatic Therapy,Gait Training, Home Exercise Program,Joint Mobilizations,Neuromuscular Re -education,Patient/Caregiver Education,Self-Care/Home Management,Therapeutic Activities,Therapeutic Exercises Next Visit Focus/Plan Next Note Type Treatment Note Next Visit Plan Gait training, Balance, Activity tolerance, strengthening
--- NOTE | 2019-03-30 16:32 | PT.OTN ---
Current Diagnoses Multiple sclerosis (03/30/19) Muscle weakness (generalized) (03/30/19) Ataxic gait (03/30/19) Unsteadiness on feet (03/30/19) Physical Therapy Treatment Note PT-OP-A Visit Information Start: 11/19/17 17:22 Freq: Status: Active Protocol: Document 03/30/19 16:00 DCW (Rec: 03/30/19 16:32 DCW [id number]) Out-Patient Physical Therapy Visit Information Visit Information Visit Type Treatment Note Visit Note Pt left 17 minutes early Visit Start Time 16:00 Visit Stop Time 16:28 Total Visit Minutes 28 Visit Number 98 Number of SOCK AND STOCKING IRONER Visits 0 Evaluation Information Evaluation Date 02/06/16 PT-OP-B Current Condition Start: 11/26/17 16:53 Freq: Status: Active Protocol: Document 02/11/18 16:00 DCW (Rec: 02/11/18 16:19 DCW [id number]) Current Condition History of Current Condition History of Current Condition See Therapy Source for full patient history Treatment Goals Patient/Caregiver Goals Decrease burden of care Prior Functional Status Baseline Function- ADL's Needs Assist Baseline Function- Mobility Needs Assist Current Functional Impairments (Reported) Functional Limitations- Mobility/Gait Pt ambulates 80' CGA/Min Ax1 / c FWW Pt transfers stand-pivot Min Ax1 for balance and stability PT-OP-C Subjective Start: 11/19/17 17:22 Freq: Status: Active Protocol: Document 03/30/19 16:00 DCW (Rec: 03/30/19 16:32 DCW [id number]) OP-PT Subjective Patient Comments Patient Comments Pt fatigued and not feeling well today. Per her brother-in -law, she also has a boil on the back of her neck, which she has an appointment to have checked out next week. PT-OP-D Balance Start: 11/26/17 16:53 Freq: Status: Active Protocol: Document 03/03/19 12:00 DCW (Rec: 03/03/19 12:21 DCW [id number]) OP-PT Balance Assessment Standing Balance Static Standing Balance Ability Fair Dynamic Standing Balance Ability Poor Standing Balance Comments Pt requires Mod Ax1 when standing without assistive device for 9 seconds Dorado Fall Scale Copyright Permission PT-OP-G Mobility & Gait Start: 11/26/17 16:53 Freq: Status: Active Protocol: Document 03/03/19 12:00 DCW (Rec: 03/03/19 12:21 DCW [id number]) OP Mobility Evaluation Transfers Sit to Stand Min Ax1 /c FWW Bed to Chair Transfers Min Ax1 /c FWW OP Gait Assessment Gait Gait Assistance Required: Minimum Assistance,1 Person Assist Distance (Feet) 49 Assistive Devices Assistive Device Front Wheeled Walker Gait Deviations General Gait Pattern Ataxic,Decreased Stride Length ,Decreased Feet Clearance,Wide Based Gait Factors Limiting Gait Function Factors Limiting Gait Function Abnormal Tonal Influences, Decreased Sensation,Decreased Strength,Poor Balance,Poor Safety Awareness PT-OP-M Strength Start: 11/26/17 16:53 Freq: Status: Active Protocol: Document 03/03/19 12:00 DCW (Rec: 03/03/19 12:21 DCW [id number]) Hip Strength Hip Manual Muscle Testing Right Flexion (L2) 4 Good Abduction 4+ Good+ Adduction 5 Normal Left Flexion (L2) 4 Good Abduction 4+ Good+ Adduction 5 Normal Knee Strength Knee Manual Muscle Testing Right Flexion (S2) 4+ Good+ Extension (L3) 5 Normal Left Flexion (S2) 4+ Good+ Extension (L3) 5 Normal Ankle/Foot Strength Ankle and Foot Manual Muscle Testing Right Dorsiflexion (L4) 4+ Good+ Plantarflexion (S1) 3- Fair- Left Dorsiflexion (L4) 4+ Good+ Plantarflexion (S1) 3 Fair PT-OP-Q Treatments Start: 11/19/17 17:22 Freq: Status: Active Protocol: Document 03/30/19 16:00 DCW (Rec: 03/30/19 16:32 DCW [id number]) Cardio Equipment Upper Body Ergometer (UBE) Duration (Minutes) 6 RPM 60 Height 3.5 Other Forward/Backward Gym Equipment Shuttle Recovery Unilateral Squats Resistance 37# R, 25# L Shuttle Recovery Platform Stable Bilateral Squats Resistance 75# Shuttle Recovery Platform Stable Gait Training Gait Activity 1 Device Used FWW Level of Assistance Mod Ax1 /c w/c follow Surface Level Distance/Duration 10' x2 Treatment Focus Knee extension/quad activation , activity tolerance PT-OP-T Assessment and Plan Start: 11/19/17 17:22 Freq: Status: Active Protocol: Document 03/30/19 16:00 DCW (Rec: 03/30/19 16:32 DCW [id number]) Physical Therapy Assessment Impairments Impairments Activity Tolerance,Balance, Coordination,Functional Activities,Functional Mobility ,Gait,Posture,ROM,Soft Tissue Mobility,Strength,Tone, Transfers Goals Four Impairment Static Standing Balance Bar Host Goal (LTG) Pt to stand with supervision assistance for 5 seconds without assistive device LTG Duration 02/18/19 Three Impairment Transfers Penitentiary Goal (LTG) Pt to perform stand-pivot transfer CGA with FWW LTG Duration 02/18/19 Two Impairment Gait Penitentiary Goal (LTG) Pt to ambulate 100' SBA /c FWW LTG Duration 02/18/19 One Impairment LE weakness Bar Host Goal (LTG) Ankle Plantarflexion to 3/5 bilaterally All remaining planes to 4/5 bilaterally LTG Duration 02/18/19 Progress Towards Goals Progress Towards Goals Slow Progress due to Medical Issues Progress Comments Multiple Sclerosis Assessment Summary Assessment Pt struggled with gait today, very fatigued and weak. Unfortunately, pt had an episode of incontinence half- way through her session, and her family decided to stop therapy to take her home to get cleaned up. Physical Therapy Plan Frequency and Duration Frequency of Treatment 1x/Week Duration of Treatment 3 months Plan of Care Start Date 03/03/19 Plan of Care End Date 06/03/19 Therapeutic Interventions Therapeutic Interventions Aquatic Therapy,Gait Training, Home Exercise Program,Joint Mobilizations,Neuromuscular Re -education,Patient/Caregiver Education,Self-Care/Home Management,Therapeutic Activities,Therapeutic Exercises Next Visit Focus/Plan Next Note Type Treatment Note Next Visit Plan Gait training, Balance, Activity tolerance, strengthening
--- NOTE | 2019-04-07 16:47 | PT.OTN ---
Current Diagnoses Multiple sclerosis (04/07/19) Muscle weakness (generalized) (04/07/19) Ataxic gait (04/07/19) Unsteadiness on feet (04/07/19) Physical Therapy Treatment Note PT-OP-A Visit Information Start: 11/19/17 17:22 Freq: Status: Active Protocol: Document 04/07/19 16:00 DCW (Rec: 04/07/19 16:46 DCW [id number]) Out-Patient Physical Therapy Visit Information Visit Information Visit Type Treatment Note Visit Start Time 16:00 Visit Stop Time 16:45 Total Visit Minutes 45 Visit Number 99 Number of ADULT EDUCATION MANAGER Visits 0 Evaluation Information Evaluation Date 02/06/16 PT-OP-B Current Condition Start: 11/26/17 16:53 Freq: Status: Active Protocol: Document 02/11/18 16:00 DCW (Rec: 02/11/18 16:19 DCW [id number]) Current Condition History of Current Condition History of Current Condition See Therapy Source for full patient history Treatment Goals Patient/Caregiver Goals Decrease burden of care Prior Functional Status Baseline Function- ADL's Needs Assist Baseline Function- Mobility Needs Assist Current Functional Impairments (Reported) Functional Limitations- Mobility/Gait Pt ambulates 80' CGA/Min Ax1 / c FWW Pt transfers stand-pivot Min Ax1 for balance and stability PT-OP-C Subjective Start: 11/19/17 17:22 Freq: Status: Active Protocol: Document 04/07/19 16:00 DCW (Rec: 04/07/19 16:46 DCW [id number]) OP-PT Subjective Patient Comments Patient Comments Pt reports she is cold and tired today. PT-OP-D Balance Start: 11/26/17 16:53 Freq: Status: Active Protocol: Document 03/03/19 12:00 DCW (Rec: 03/03/19 12:21 DCW [id number]) OP-PT Balance Assessment Standing Balance Static Standing Balance Ability Fair Dynamic Standing Balance Ability Poor Standing Balance Comments Pt requires Mod Ax1 when standing without assistive device for 9 seconds Dorado Fall Scale Copyright Permission PT-OP-G Mobility & Gait Start: 11/26/17 16:53 Freq: Status: Active Protocol: Document 03/03/19 12:00 DCW (Rec: 03/03/19 12:21 DCW [id number]) OP Mobility Evaluation Transfers Sit to Stand Min Ax1 /c FWW Bed to Chair Transfers Min Ax1 /c FWW OP Gait Assessment Gait Gait Assistance Required: Minimum Assistance,1 Person Assist Distance (Feet) 49 Assistive Devices Assistive Device Front Wheeled Walker Gait Deviations General Gait Pattern Ataxic,Decreased Stride Length ,Decreased Feet Clearance,Wide Based Gait Factors Limiting Gait Function Factors Limiting Gait Function Abnormal Tonal Influences, Decreased Sensation,Decreased Strength,Poor Balance,Poor Safety Awareness PT-OP-M Strength Start: 11/26/17 16:53 Freq: Status: Active Protocol: Document 03/03/19 12:00 DCW (Rec: 03/03/19 12:21 DCW [id number]) Hip Strength Hip Manual Muscle Testing Right Flexion (L2) 4 Good Abduction 4+ Good+ Adduction 5 Normal Left Flexion (L2) 4 Good Abduction 4+ Good+ Adduction 5 Normal Knee Strength Knee Manual Muscle Testing Right Flexion (S2) 4+ Good+ Extension (L3) 5 Normal Left Flexion (S2) 4+ Good+ Extension (L3) 5 Normal Ankle/Foot Strength Ankle and Foot Manual Muscle Testing Right Dorsiflexion (L4) 4+ Good+ Plantarflexion (S1) 3- Fair- Left Dorsiflexion (L4) 4+ Good+ Plantarflexion (S1) 3 Fair PT-OP-Q Treatments Start: 11/19/17 17:22 Freq: Status: Active Protocol: Document 04/07/19 16:00 DCW (Rec: 04/07/19 16:46 DCW [id number]) Cardio Equipment Upper Body Ergometer (UBE) Duration (Minutes) 6 RPM 60 Height 3.5 Other Forward/Backward Gym Equipment Shuttle Recovery Unilateral Squats Resistance 37# R, 25# L Shuttle Recovery Platform Stable Bilateral Squats Resistance 75# Shuttle Recovery Platform Stable Therapeutic Exercises Sitting Exercises 4 Sitting Exercise Name Seated Marching Side bilateral Resistance 10# Equipment Used Ankle weights 3 Sitting Exercise Name LAQ Side bilateral Resistance 10# Equipment Used Ankle weights 2 Sitting Exercise Name Hip abduction Side bilateral Resistance Lv 3 Equipment Used T-band Standing Exercises Hamstring Curls Standing Exercise Name HS curls @ rail Reps/Minutes 2x5 Hip Abduction Standing Exercise Name Hip Abduction @ rail Reps/Minutes 2x5 Marching Standing Exercise Name Standing Marching @ rail Reps/Minutes 2x5 Gait Training Gait Activity 1 Device Used FWW Level of Assistance Mod Ax1 /c w/c follow Surface Level Distance/Duration 20' x2, 60' x1 Treatment Focus Knee extension/quad activation , activity tolerance PT-OP-T Assessment and Plan Start: 11/19/17 17:22 Freq: Status: Active Protocol: Document 04/07/19 16:00 DCW (Rec: 04/07/19 16:46 DCW [id number]) Physical Therapy Assessment Impairments Impairments Activity Tolerance,Balance, Coordination,Functional Activities,Functional Mobility ,Gait,Posture,ROM,Soft Tissue Mobility,Strength,Tone, Transfers Goals Four Impairment Static Standing Balance B2B Outside Sales Representative Goal (LTG) Pt to stand with supervision assistance for 5 seconds without assistive device LTG Duration 02/18/19 Three Impairment Transfers B2B Outside Sales Representative Goal (LTG) Pt to perform stand-pivot transfer CGA with FWW LTG Duration 02/18/19 Two Impairment Gait B2B Outside Sales Representative Goal (LTG) Pt to ambulate 100' SBA /c FWW LTG Duration 02/18/19 One Impairment LE weakness Care Home Goal (LTG) Ankle Plantarflexion to 3/5 bilaterally All remaining planes to 4/5 bilaterally LTG Duration 02/18/19 Progress Towards Goals Progress Towards Goals Slow Progress due to Medical Issues Progress Comments Multiple Sclerosis Assessment Summary Assessment Pt fatigued today, refused to do some of her standing exercises due to leg soreness, but overall did fairly well. Physical Therapy Plan Frequency and Duration Frequency of Treatment 1x/Week Duration of Treatment 3 months Plan of Care Start Date 03/03/19 Plan of Care End Date 06/03/19 Therapeutic Interventions Therapeutic Interventions Aquatic Therapy,Gait Training, Home Exercise Program,Joint Mobilizations,Neuromuscular Re -education,Patient/Caregiver Education,Self-Care/Home Management,Therapeutic Activities,Therapeutic Exercises Next Visit Focus/Plan Next Note Type Treatment Note Next Visit Plan Gait training, Balance, Activity tolerance, strengthening
--- NOTE | 2019-04-14 16:46 | PT.OTN ---
Current Diagnoses Multiple sclerosis (04/14/19) Muscle weakness (generalized) (04/14/19) Ataxic gait (04/14/19) Unsteadiness on feet (04/14/19) Physical Therapy Treatment Note PT-OP-A Visit Information Start: 11/19/17 17:22 Freq: Status: Active Protocol: Document 04/14/19 16:00 DCW (Rec: 04/14/19 16:46 DCW [id number]) Out-Patient Physical Therapy Visit Information Visit Information Visit Type Treatment Note Visit Start Time 16:00 Visit Stop Time 16:45 Total Visit Minutes 45 Visit Number 100 Number of ASSISTANT COMMISSIONER Visits 0 Evaluation Information Evaluation Date 02/06/16 PT-OP-B Current Condition Start: 11/26/17 16:53 Freq: Status: Active Protocol: Document 02/11/18 16:00 DCW (Rec: 02/11/18 16:19 DCW [id number]) Current Condition History of Current Condition History of Current Condition See Therapy Source for full patient history Treatment Goals Patient/Caregiver Goals Decrease burden of care Prior Functional Status Baseline Function- ADL's Needs Assist Baseline Function- Mobility Needs Assist Current Functional Impairments (Reported) Functional Limitations- Mobility/Gait Pt ambulates 80' CGA/Min Ax1 / c FWW Pt transfers stand-pivot Min Ax1 for balance and stability PT-OP-C Subjective Start: 11/19/17 17:22 Freq: Status: Active Protocol: Document 04/14/19 16:00 DCW (Rec: 04/14/19 16:46 DCW [id number]) OP-PT Subjective Patient Comments Patient Comments Pt reports she is tired today, after getting up early for a doctor's appointment today. PT-OP-D Balance Start: 11/26/17 16:53 Freq: Status: Active Protocol: Document 03/03/19 12:00 DCW (Rec: 03/03/19 12:21 DCW [id number]) OP-PT Balance Assessment Standing Balance Static Standing Balance Ability Fair Dynamic Standing Balance Ability Poor Standing Balance Comments Pt requires Mod Ax1 when standing without assistive device for 9 seconds Dorado Fall Scale Copyright Permission PT-OP-G Mobility & Gait Start: 11/26/17 16:53 Freq: Status: Active Protocol: Document 03/03/19 12:00 DCW (Rec: 03/03/19 12:21 DCW [id number]) OP Mobility Evaluation Transfers Sit to Stand Min Ax1 /c FWW Bed to Chair Transfers Min Ax1 /c FWW OP Gait Assessment Gait Gait Assistance Required: Minimum Assistance,1 Person Assist Distance (Feet) 49 Assistive Devices Assistive Device Front Wheeled Walker Gait Deviations General Gait Pattern Ataxic,Decreased Stride Length ,Decreased Feet Clearance,Wide Based Gait Factors Limiting Gait Function Factors Limiting Gait Function Abnormal Tonal Influences, Decreased Sensation,Decreased Strength,Poor Balance,Poor Safety Awareness PT-OP-M Strength Start: 11/26/17 16:53 Freq: Status: Active Protocol: Document 03/03/19 12:00 DCW (Rec: 03/03/19 12:21 DCW [id number]) Hip Strength Hip Manual Muscle Testing Right Flexion (L2) 4 Good Abduction 4+ Good+ Adduction 5 Normal Left Flexion (L2) 4 Good Abduction 4+ Good+ Adduction 5 Normal Knee Strength Knee Manual Muscle Testing Right Flexion (S2) 4+ Good+ Extension (L3) 5 Normal Left Flexion (S2) 4+ Good+ Extension (L3) 5 Normal Ankle/Foot Strength Ankle and Foot Manual Muscle Testing Right Dorsiflexion (L4) 4+ Good+ Plantarflexion (S1) 3- Fair- Left Dorsiflexion (L4) 4+ Good+ Plantarflexion (S1) 3 Fair PT-OP-Q Treatments Start: 11/19/17 17:22 Freq: Status: Active Protocol: Document 04/14/19 16:00 DCW (Rec: 04/14/19 16:46 DCW [id number]) Cardio Equipment Upper Body Ergometer (UBE) Duration (Minutes) 6 RPM 60 Height 3.5 Other Forward/Backward Gym Equipment Shuttle Recovery Unilateral Squats Resistance 37# Shuttle Recovery Platform Stable Bilateral Squats Resistance 75# Shuttle Recovery Platform Stable Therapeutic Exercises Standing Exercises Squats Standing Exercise Name Squats @ rail Hamstring Curls Standing Exercise Name HS curls @ rail Reps/Minutes 2x5 Hip Abduction Standing Exercise Name Hip Abduction @ rail Reps/Minutes 2x5 Marching Standing Exercise Name Standing Marching @ rail Reps/Minutes 2x5 Gait Training Gait Activity 1 Device Used FWW Level of Assistance Mod Ax1 /c w/c follow Surface Level Distance/Duration 30' x3 Treatment Focus Knee extension/quad activation , activity tolerance Neuro Re-Education Treatment Coordination Activities 1 Details Cone activities Equipment Cones Speed 10# ankle weight Comments Using feet to knock over cones for coordination training/ neuromuscular re-education PT-OP-T Assessment and Plan Start: 11/19/17 17:22 Freq: Status: Active Protocol: Document 04/14/19 16:00 DCW (Rec: 04/14/19 16:46 DCW [id number]) Physical Therapy Assessment Impairments Impairments Activity Tolerance,Balance, Coordination,Functional Activities,Functional Mobility ,Gait,Posture,ROM,Soft Tissue Mobility,Strength,Tone, Transfers Goals Four Impairment Static Standing Balance Rivet Heater Goal (LTG) Pt to stand with supervision assistance for 5 seconds without assistive device LTG Duration 02/18/19 Three Impairment Transfers Alf Goal (LTG) Pt to perform stand-pivot transfer CGA with FWW LTG Duration 02/18/19 Two Impairment Gait Rivet Heater Goal (LTG) Pt to ambulate 100' SBA /c FWW LTG Duration 02/18/19 One Impairment LE weakness Alf Goal (LTG) Ankle Plantarflexion to 3/5 bilaterally All remaining planes to 4/5 bilaterally LTG Duration 02/18/19 Progress Towards Goals Progress Towards Goals Slow Progress due to Medical Issues Progress Comments Multiple Sclerosis Assessment Summary Assessment Pt feeling better today, although she was clearly fighting off a cold. Pt did very well with her ambulation, and tolerated her standing exercises better than last week. Physical Therapy Plan Frequency and Duration Frequency of Treatment 1x/Week Duration of Treatment 3 months Plan of Care Start Date 03/03/19 Plan of Care End Date 06/03/19 Therapeutic Interventions Therapeutic Interventions Aquatic Therapy,Gait Training, Home Exercise Program,Joint Mobilizations,Neuromuscular Re -education,Patient/Caregiver Education,Self-Care/Home Management,Therapeutic Activities,Therapeutic Exercises Next Visit Focus/Plan Next Note Type Treatment Note Next Visit Plan Gait training, Balance, Activity tolerance, strengthening
--- NOTE | 2019-05-26 17:27 | PT.OTN ---
Current Diagnoses Multiple sclerosis (05/26/19) Muscle weakness (generalized) (05/26/19) Ataxic gait (05/26/19) Unsteadiness on feet (05/26/19) Physical Therapy Treatment Note PT-OP-A Visit Information Start: 11/19/17 17:22 Freq: Status: Active Protocol: Document 05/26/19 16:00 DCW (Rec: 05/26/19 16:46 DCW [id number]) Out-Patient Physical Therapy Visit Information Visit Information Visit Type Progress Note Visit Start Time 16:00 Visit Stop Time 16:45 Total Visit Minutes 45 Visit Number 101 Number of SUGAR REFINER Visits 0 Evaluation Information Evaluation Date 02/06/16 PT-OP-B Current Condition Start: 11/26/17 16:53 Freq: Status: Active Protocol: Document 02/11/18 16:00 DCW (Rec: 02/11/18 16:19 DCW [id number]) Current Condition History of Current Condition History of Current Condition See Therapy Source for full patient history Treatment Goals Patient/Caregiver Goals Decrease burden of care Prior Functional Status Baseline Function- ADL's Needs Assist Baseline Function- Mobility Needs Assist Current Functional Impairments (Reported) Functional Limitations- Mobility/Gait Pt ambulates 80' CGA/Min Ax1 / c FWW Pt transfers stand-pivot Min Ax1 for balance and stability PT-OP-C Subjective Start: 11/19/17 17:22 Freq: Status: Active Protocol: Document 05/26/19 16:00 DCW (Rec: 05/26/19 16:46 DCW [id number]) OP-PT Subjective Patient Comments Patient Comments Pt still wearing her walking boot, but feels that it is time that it came off. Pt has an upcoming appt to discuss getting rid of the boot. PT-OP-D Balance Start: 11/26/17 16:53 Freq: Status: Active Protocol: Document 05/26/19 16:00 DCW (Rec: 05/26/19 17:27 DCW [id number]) OP-PT Balance Assessment Standing Balance Static Standing Balance Ability Fair Dynamic Standing Balance Ability Poor Standing Balance Comments Pt requires Mod Ax1 when standing without assistive device for 7 seconds Dorado Fall Scale Copyright Permission PT-OP-G Mobility & Gait Start: 11/26/17 16:53 Freq: Status: Active Protocol: Document 05/26/19 16:00 DCW (Rec: 05/26/19 17:27 DCW [id number]) OP Mobility Evaluation Transfers Sit to Stand Min Ax1 /c FWW Bed to Chair Transfers Min Ax1 /c FWW OP Gait Assessment Gait Gait Assistance Required: Minimum Assistance,1 Person Assist Distance (Feet) 38 Assistive Devices Assistive Device Front Wheeled Walker Gait Deviations General Gait Pattern Ataxic,Decreased Stride Length ,Decreased Feet Clearance,Wide Based Gait Factors Limiting Gait Function Factors Limiting Gait Function Abnormal Tonal Influences, Decreased Sensation,Decreased Strength,Poor Balance,Poor Safety Awareness PT-OP-M Strength Start: 11/26/17 16:53 Freq: Status: Active Protocol: Document 05/26/19 16:00 DCW (Rec: 05/26/19 17:27 MIW [id number]) Hip Strength Hip Manual Muscle Testing Right Flexion (L2) 4 Good Abduction 4 Good Adduction 5 Normal Left Flexion (L2) 4 Good Abduction 4+ Good+ Adduction 5 Normal Knee Strength Knee Manual Muscle Testing Right Flexion (S2) 4+ Good+ Extension (L3) 5 Normal Left Flexion (S2) 4 Good Extension (L3) 4+ Good+ Ankle/Foot Strength Ankle and Foot Manual Muscle Testing Right Dorsiflexion (L4) 4+ Good+ Plantarflexion (S1) 3- Fair- Left Dorsiflexion (L4) 4+ Good+ Plantarflexion (S1) 3- Fair- PT-OP-Q Treatments Start: 11/19/17 17:22 Freq: Status: Active Protocol: Document 05/26/19 16:00 DCW (Rec: 05/26/19 16:46 DCW [id number]) Cardio Equipment Upper Body Ergometer (UBE) Duration (Minutes) 6 RPM 60 Height 3.5 Other Forward/Backward Gym Equipment Shuttle Recovery Unilateral Squats Resistance 37# Shuttle Recovery Platform Stable Bilateral Squats Resistance 75# Shuttle Recovery Platform Stable Therapeutic Exercises Sitting Exercises 5 Sitting Exercise Name Adductor Ball Squeeze Side bilateral Resistance Small ball 4 Sitting Exercise Name Seated Marching Side bilateral Resistance 5# Equipment Used Ankle weights 3 Sitting Exercise Name LAQ Side bilateral Resistance 5# Equipment Used Ankle weights 2 Sitting Exercise Name Hip abduction Side bilateral Resistance Lv 3 Equipment Used T-band 1 Sitting Exercise Name Hamstring Curls Side bilateral Resistance Lv 3 Equipment Used T-band Standing Exercises Squats Standing Exercise Name Sit<->Stand @ rail Hip Abduction Standing Exercise Name Hip Abduction @ rail Reps/Minutes 2x5 Gait Training Gait Activity 1 Device Used FWW Level of Assistance Mod Ax1 /c w/c follow Surface Level Distance/Duration 30' x3 Treatment Focus Knee extension/quad activation , activity tolerance PT-OP-T Assessment and Plan Start: 11/19/17 17:22 Freq: Status: Active Protocol: Document 05/26/19 16:00 DCW (Rec: 05/26/19 16:46 DCW [id number]) Physical Therapy Assessment Impairments Impairments Activity Tolerance,Balance, Coordination,Functional Activities,Functional Mobility ,Gait,Posture,ROM,Soft Tissue Mobility,Strength,Tone, Transfers Goals Four Impairment Static Standing Balance Rope Rider Goal (LTG) Pt to stand with supervision assistance for 5 seconds without assistive device LTG Duration 08/14/19 Three Impairment Transfers Rope Rider Goal (LTG) Pt to perform stand-pivot transfer CGA with FWW LTG Duration 08/14/19 Two Impairment Gait Intermediate Goal (LTG) Pt to ambulate 100' SBA /c FWW LTG Duration 08/14/19 One Impairment LE weakness Rope Rider Goal (LTG) Ankle Plantarflexion to 3/5 bilaterally All remaining planes to 4/5 bilaterally LTG Duration 08/14/19 Progress Towards Goals Progress Towards Goals Slow Progress due to Medical Issues Progress Comments Multiple Sclerosis Assessment Summary Assessment Pt very fatigued today. Slight decline in ambulation and strength, although pt has been having difficulty ambulating with her walking boot, and has actually not had a PT appointment in more than one month, which may explain the quick fatigue and increased weakness. Pt should benefit from continued therapy in an effort to maintain current level of function and to not increase burden of care. Physical Therapy Plan Frequency and Duration Frequency of Treatment 1x/Week Duration of Treatment 3 months Plan of Care Start Date 05/26/19 Plan of Care End Date 08/24/19 Therapeutic Interventions Therapeutic Interventions Aquatic Therapy,Gait Training, Home Exercise Program,Joint Mobilizations,Neuromuscular Re -education,Patient/Caregiver Education,Self-Care/Home Management,Therapeutic Activities,Therapeutic Exercises Next Visit Focus/Plan Next Note Type Treatment Note Next Visit Plan Gait training, Balance, Activity tolerance, strengthening
--- NOTE | 2019-05-26 17:28 | PT.OPPOC ---
Current Diagnoses Multiple sclerosis (05/26/19) Muscle weakness (generalized) (05/26/19) Ataxic gait (05/26/19) Unsteadiness on feet (05/26/19) Visit Care Team Role Provider Type Dariana Stratton DO Attending Provider Physician Family Provider Primary Care Provider Specialty: Family Practice Address: [address] [place] [address], [facility] Email: [email or web address] Plan Of Care PT-OP-T Assessment and Plan Start: 11/19/17 17:22 Freq: Status: Active Protocol: Document 05/26/19 16:00 DCW (Rec: 05/26/19 16:46 DCW [id number]) Physical Therapy Assessment Impairments Impairments Activity Tolerance,Balance, Coordination,Functional Activities,Functional Mobility ,Gait,Posture,ROM,Soft Tissue Mobility,Strength,Tone, Transfers Goals Four Impairment Static Standing Balance Heavy Duty Mechanic Goal (LTG) Pt to stand with supervision assistance for 5 seconds without assistive device LTG Duration 08/14/19 Three Impairment Transfers Heavy Duty Mechanic Goal (LTG) Pt to perform stand-pivot transfer CGA with FWW LTG Duration 08/14/19 Two Impairment Gait Retirement Goal (LTG) Pt to ambulate 100' SBA /c FWW LTG Duration 08/14/19 One Impairment LE weakness Heavy Duty Mechanic Goal (LTG) Ankle Plantarflexion to 3/5 bilaterally All remaining planes to 4/5 bilaterally LTG Duration 08/14/19 Progress Towards Goals Progress Towards Goals Slow Progress due to Medical Issues Progress Comments Multiple Sclerosis Assessment Summary Assessment Pt very fatigued today. Slight decline in ambulation and strength, although pt has been having difficulty ambulating with her walking boot, and has actually not had a PT appointment in more than one month, which may explain the quick fatigue and increased weakness. Pt should benefit from continued therapy in an effort to maintain current level of function and to not increase burden of care. Physical Therapy Plan Frequency and Duration Frequency of Treatment 1x/Week Duration of Treatment 3 months Plan of Care Start Date 05/26/19 Plan of Care End Date 08/24/19 Therapeutic Interventions Therapeutic Interventions Aquatic Therapy,Gait Training, Home Exercise Program,Joint Mobilizations,Neuromuscular Re -education,Patient/Caregiver Education,Self-Care/Home Management,Therapeutic Activities,Therapeutic Exercises Next Visit Focus/Plan Next Note Type Treatment Note Next Visit Plan Gait training, Balance, Activity tolerance, strengthening Plan of Care Dates Plan of Care Start Date 05/26/19 Plan of Care End Date 08/24/19
--- NOTE | 2019-06-02 16:56 | PT.OTN ---
Current Diagnoses Multiple sclerosis (06/02/19) Muscle weakness (generalized) (06/02/19) Ataxic gait (06/02/19) Unsteadiness on feet (06/02/19) Physical Therapy Treatment Note PT-OP-A Visit Information Start: 11/19/17 17:22 Freq: Status: Active Protocol: Document 06/02/19 16:00 DCW (Rec: 06/02/19 16:55 DCW [id number]) Out-Patient Physical Therapy Visit Information Visit Information Visit Type Treatment Note Visit Start Time 16:00 Visit Stop Time 16:30 Total Visit Minutes 30 Visit Number 102 Number of ENVELOPE FOLDER Visits 0 Evaluation Information Evaluation Date 02/06/16 PT-OP-B Current Condition Start: 11/26/17 16:53 Freq: Status: Active Protocol: Document 02/11/18 16:00 DCW (Rec: 02/11/18 16:19 DCW [id number]) Current Condition History of Current Condition History of Current Condition See Therapy Source for full patient history Treatment Goals Patient/Caregiver Goals Decrease burden of care Prior Functional Status Baseline Function- ADL's Needs Assist Baseline Function- Mobility Needs Assist Current Functional Impairments (Reported) Functional Limitations- Mobility/Gait Pt ambulates 80' CGA/Min Ax1 / c FWW Pt transfers stand-pivot Min Ax1 for balance and stability PT-OP-C Subjective Start: 11/19/17 17:22 Freq: Status: Active Protocol: Document 06/02/19 16:00 DCW (Rec: 06/02/19 16:55 DCW [id number]) OP-PT Subjective Patient Comments Patient Comments I'm really tired today. I didn't sleep well. PT-OP-D Balance Start: 11/26/17 16:53 Freq: Status: Active Protocol: Document 05/26/19 16:00 DCW (Rec: 05/26/19 17:27 DCW [id number]) OP-PT Balance Assessment Standing Balance Static Standing Balance Ability Fair Dynamic Standing Balance Ability Poor Standing Balance Comments Pt requires Mod Ax1 when standing without assistive device for 7 seconds Dorado Fall Scale Copyright Permission PT-OP-G Mobility & Gait Start: 11/26/17 16:53 Freq: Status: Active Protocol: Document 05/26/19 16:00 DCW (Rec: 05/26/19 17:27 DCW [id number]) OP Mobility Evaluation Transfers Sit to Stand Min Ax1 /c FWW Bed to Chair Transfers Min Ax1 /c FWW OP Gait Assessment Gait Gait Assistance Required: Minimum Assistance,1 Person Assist Distance (Feet) 38 Assistive Devices Assistive Device Front Wheeled Walker Gait Deviations General Gait Pattern Ataxic,Decreased Stride Length ,Decreased Feet Clearance,Wide Based Gait Factors Limiting Gait Function Factors Limiting Gait Function Abnormal Tonal Influences, Decreased Sensation,Decreased Strength,Poor Balance,Poor Safety Awareness PT-OP-M Strength Start: 11/26/17 16:53 Freq: Status: Active Protocol: Document 05/26/19 16:00 DCW (Rec: 05/26/19 17:27 DCW [id number]) Hip Strength Hip Manual Muscle Testing Right Flexion (L2) 4 Good Abduction 4 Good Adduction 5 Normal Left Flexion (L2) 4 Good Abduction 4+ Good+ Adduction 5 Normal Knee Strength Knee Manual Muscle Testing Right Flexion (S2) 4+ Good+ Extension (L3) 5 Normal Left Flexion (S2) 4 Good Extension (L3) 4+ Good+ Ankle/Foot Strength Ankle and Foot Manual Muscle Testing Right Dorsiflexion (L4) 4+ Good+ Plantarflexion (S1) 3- Fair- Left Dorsiflexion (L4) 4+ Good+ Plantarflexion (S1) 3- Fair- PT-OP-Q Treatments Start: 11/19/17 17:22 Freq: Status: Active Protocol: Document 06/02/19 16:00 DCW (Rec: 06/02/19 16:55 DCW [id number]) Cardio Equipment Upper Body Ergometer (UBE) Duration (Minutes) 6 RPM 60 Height 3.5 Other Forward/Backward Therapeutic Exercises Standing Exercises Marching Standing Exercise Name Standing Marching @ rail Reps/Minutes 2x5 Gait Training Gait Activity 1 Device Used FWW Level of Assistance Mod Ax1 /c w/c follow Surface Level Distance/Duration 15' x4 Treatment Focus Knee extension/quad activation , activity tolerance Self-Care/Home Management Treatment Activities Self-Care/Home Management Activities Assessment of HR (94 bpm), O2 Sat (96%), and BP (122/78) PT-OP-T Assessment and Plan Start: 11/19/17 17:22 Freq: Status: Active Protocol: Document 06/02/19 16:00 DCW (Rec: 06/02/19 16:55 DCW [id number]) Physical Therapy Assessment Impairments Impairments Activity Tolerance,Balance, Coordination,Functional Activities,Functional Mobility ,Gait,Posture,ROM,Soft Tissue Mobility,Strength,Tone, Transfers Goals Four Impairment Static Standing Balance Jewel Sorter Goal (LTG) Pt to stand with supervision assistance for 5 seconds without assistive device LTG Duration 08/14/19 Three Impairment Transfers Group Home Goal (LTG) Pt to perform stand-pivot transfer CGA with FWW LTG Duration 08/14/19 Two Impairment Gait Group Home Goal (LTG) Pt to ambulate 100' SBA /c FWW LTG Duration 08/14/19 One Impairment LE weakness Group Home Goal (LTG) Ankle Plantarflexion to 3/5 bilaterally All remaining planes to 4/5 bilaterally LTG Duration 08/14/19 Progress Towards Goals Progress Towards Goals Slow Progress due to Medical Issues Progress Comments Multiple Sclerosis Assessment Summary Assessment Pt struggled a lot today, during standing was having difficulty standing up straight, kept leaning to the left, and had difficulty staying on her feet. With her history, the most likely cause is another UTI, which she gets frequently, and which always greatly affect her strength, mobility, and often also her cognition. Pt's sister and [id number] were informed of the issues she was displaying, and decided to take her for a UTI test. All involved agreed to end today's session early. Physical Therapy Plan Frequency and Duration Frequency of Treatment 1x/Week Duration of Treatment 3 months Plan of Care Start Date 05/26/19 Plan of Care End Date 08/24/19 Therapeutic Interventions Therapeutic Interventions Aquatic Therapy,Gait Training, Home Exercise Program,Joint Mobilizations,Neuromuscular Re -education,Patient/Caregiver Education,Self-Care/Home Management,Therapeutic Activities,Therapeutic Exercises Next Visit Focus/Plan Next Note Type Treatment Note Next Visit Plan Gait training, Balance, Activity tolerance, strengthening
--- NOTE | 2019-06-23 16:38 | PT.OTN ---
Current Diagnoses Multiple sclerosis (06/23/19) Muscle weakness (generalized) (06/23/19) Ataxic gait (06/23/19) Unsteadiness on feet (06/23/19) Physical Therapy Treatment Note PT-OP-A Visit Information Start: 11/19/17 17:22 Freq: Status: Active Protocol: Document 06/23/19 16:00 DCW (Rec: 06/23/19 16:38 DCW [id number]) Out-Patient Physical Therapy Visit Information Visit Information Visit Type Treatment Note Visit Note Session ended early after episode of urinary incontinence Visit Start Time 16:00 Visit Stop Time 16:30 Total Visit Minutes 30 Visit Number 103 Number of TRAVELING NURSE Visits 0 Evaluation Information Evaluation Date 02/06/16 PT-OP-B Current Condition Start: 11/26/17 16:53 Freq: Status: Active Protocol: Document 02/11/18 16:00 DCW (Rec: 02/11/18 16:19 DCW [id number]) Current Condition History of Current Condition History of Current Condition See Therapy Source for full patient history Treatment Goals Patient/Caregiver Goals Decrease burden of care Prior Functional Status Baseline Function- ADL's Needs Assist Baseline Function- Mobility Needs Assist Current Functional Impairments (Reported) Functional Limitations- Mobility/Gait Pt ambulates 80' CGA/Min Ax1 / c FWW Pt transfers stand-pivot Min Ax1 for balance and stability PT-OP-C Subjective Start: 11/19/17 17:22 Freq: Status: Active Protocol: Document 06/23/19 16:00 DCW (Rec: 06/23/19 16:38 DCW [id number]) OP-PT Subjective Patient Comments Patient Comments Pt's [id number] confirms that pt had been suffering from a UTI, but went through a course of antibiotics, and seems much better on her feet now. Pt notes that she feels better than she did, but I'm not all the way back yet. PT-OP-D Balance Start: 11/26/17 16:53 Freq: Status: Active Protocol: Document 05/26/19 16:00 DCW (Rec: 05/26/19 17:27 DCW [id number]) OP-PT Balance Assessment Standing Balance Static Standing Balance Ability Fair Dynamic Standing Balance Ability Poor Standing Balance Comments Pt requires Mod Ax1 when standing without assistive device for 7 seconds Dorado Fall Scale Copyright Permission PT-OP-G Mobility & Gait Start: 11/26/17 16:53 Freq: Status: Active Protocol: Document 05/26/19 16:00 DCW (Rec: 05/26/19 17:27 FLW [id number]) OP Mobility Evaluation Transfers Sit to Stand Min Ax1 /c FWW Bed to Chair Transfers Min Ax1 /c FWW OP Gait Assessment Gait Gait Assistance Required: Minimum Assistance,1 Person Assist Distance (Feet) 38 Assistive Devices Assistive Device Front Wheeled Walker Gait Deviations General Gait Pattern Ataxic,Decreased Stride Length ,Decreased Feet Clearance,Wide Based Gait Factors Limiting Gait Function Factors Limiting Gait Function Abnormal Tonal Influences, Decreased Sensation,Decreased Strength,Poor Balance,Poor Safety Awareness PT-OP-M Strength Start: 11/26/17 16:53 Freq: Status: Active Protocol: Document 05/26/19 16:00 DCW (Rec: 05/26/19 17:27 [facility] [id number]) Hip Strength Hip Manual Muscle Testing Right Flexion (L2) 4 Good Abduction 4 Good Adduction 5 Normal Left Flexion (L2) 4 Good Abduction 4+ Good+ Adduction 5 Normal Knee Strength Knee Manual Muscle Testing Right Flexion (S2) 4+ Good+ Extension (L3) 5 Normal Left Flexion (S2) 4 Good Extension (L3) 4+ Good+ Ankle/Foot Strength Ankle and Foot Manual Muscle Testing Right Dorsiflexion (L4) 4+ Good+ Plantarflexion (S1) 3- Fair- Left Dorsiflexion (L4) 4+ Good+ Plantarflexion (S1) 3- Fair- PT-OP-Q Treatments Start: 11/19/17 17:22 Freq: Status: Active Protocol: Document 06/23/19 16:00 DCW (Rec: 06/23/19 16:38 DCW [id number]) Cardio Equipment Upper Body Ergometer (UBE) Duration (Minutes) 6 RPM 60 Height 3.5 Other Forward/Backward Gym Equipment Shuttle Recovery Unilateral Squats Resistance 37# Shuttle Recovery Platform Stable Bilateral Squats Resistance 75# Shuttle Recovery Platform Stable Gait Training Gait Activity 1 Device Used FWW Level of Assistance Mod Ax1 /c w/c follow Surface Level Distance/Duration 30' x3 Treatment Focus Knee extension/quad activation , activity tolerance PT-OP-T Assessment and Plan Start: 05/10/18 17:22 Freq: Status: Active Protocol: Document 06/23/19 16:00 DCW (Rec: 06/23/19 16:38 DCW [id number]) Physical Therapy Assessment Impairments Impairments Activity Tolerance,Balance, Coordination,Functional Activities,Functional Mobility ,Gait,Posture,ROM,Soft Tissue Mobility,Strength,Tone, Transfers Goals Four Impairment Static Standing Balance Half-Way Goal (LTG) Pt to stand with supervision assistance for 5 seconds without assistive device LTG Duration 08/14/19 Three Impairment Transfers Half-Way Goal (LTG) Pt to perform stand-pivot transfer CGA with FWW LTG Duration 08/14/19 Two Impairment Gait Half-Way Goal (LTG) Pt to ambulate 100' SBA /c FWW LTG Duration 08/14/19 One Impairment LE weakness Poultry Hatchery Man Goal (LTG) Ankle Plantarflexion to 3/5 bilaterally All remaining planes to 4/5 bilaterally LTG Duration 08/14/19 Progress Towards Goals Progress Towards Goals Slow Progress due to Medical Issues Progress Comments Multiple Sclerosis Assessment Summary Assessment Pt was doing very well today with her exercise and ambulation, much better than she has been her past few visits. Unfortunately, pt left early following an episode of urinary incontinence. Physical Therapy Plan Frequency and Duration Frequency of Treatment 1x/Week Duration of Treatment 3 months Plan of Care Start Date 05/26/19 Plan of Care End Date 08/24/19 Therapeutic Interventions Therapeutic Interventions Aquatic Therapy,Gait Training, Home Exercise Program,Joint Mobilizations,Neuromuscular Re -education,Patient/Caregiver Education,Self-Care/Home Management,Therapeutic Activities,Therapeutic Exercises Next Visit Focus/Plan Next Note Type Treatment Note Next Visit Plan Gait training, Balance, Activity tolerance, strengthening
--- NOTE | 2019-06-30 16:59 | PT.OTN ---
Current Diagnoses Multiple sclerosis (06/30/19) Muscle weakness (generalized) (06/30/19) Ataxic gait (06/30/19) Unsteadiness on feet (06/30/19) Physical Therapy Treatment Note PT-OP-A Visit Information Start: 11/19/17 17:22 Freq: Status: Active Protocol: Document 06/30/19 16:00 DCW (Rec: 06/30/19 16:59 DCW [id number]) Out-Patient Physical Therapy Visit Information Visit Information Visit Type Treatment Note Visit Start Time 16:00 Visit Stop Time 16:45 Total Visit Minutes 45 Visit Number 104 Number of CROP PULLER Visits 0 Evaluation Information Evaluation Date 02/06/16 PT-OP-B Current Condition Start: 11/26/17 16:53 Freq: Status: Active Protocol: Document 02/11/18 16:00 DCW (Rec: 02/11/18 16:19 DCW [id number]) Current Condition History of Current Condition History of Current Condition See Therapy Source for full patient history Treatment Goals Patient/Caregiver Goals Decrease burden of care Prior Functional Status Baseline Function- ADL's Needs Assist Baseline Function- Mobility Needs Assist Current Functional Impairments (Reported) Functional Limitations- Mobility/Gait Pt ambulates 80' CGA/Min Ax1 / c FWW Pt transfers stand-pivot Min Ax1 for balance and stability PT-OP-C Subjective Start: 11/19/17 17:22 Freq: Status: Active Protocol: Document 06/30/19 16:00 DCW (Rec: 06/30/19 16:59 DCW [id number]) OP-PT Subjective Patient Comments Patient Comments Pt reports she is doing fine, but she's cold. PT-OP-D Balance Start: 11/26/17 16:53 Freq: Status: Active Protocol: Document 05/26/19 16:00 DCW (Rec: 05/26/19 17:27 DCW [id number]) OP-PT Balance Assessment Standing Balance Static Standing Balance Ability Fair Dynamic Standing Balance Ability Poor Standing Balance Comments Pt requires Mod Ax1 when standing without assistive device for 7 seconds Dorado Fall Scale Copyright Permission PT-OP-G Mobility & Gait Start: 11/26/17 16:53 Freq: Status: Active Protocol: Document 05/26/19 16:00 DCW (Rec: 05/26/19 17:27 DCW [id number]) OP Mobility Evaluation Transfers Sit to Stand Min Ax1 /c FWW Bed to Chair Transfers Min Ax1 /c FWW OP Gait Assessment Gait Gait Assistance Required: Minimum Assistance,1 Person Assist Distance (Feet) 38 Assistive Devices Assistive Device Front Wheeled Walker Gait Deviations General Gait Pattern Ataxic,Decreased Stride Length ,Decreased Feet Clearance,Wide Based Gait Factors Limiting Gait Function Factors Limiting Gait Function Abnormal Tonal Influences, Decreased Sensation,Decreased Strength,Poor Balance,Poor Safety Awareness PT-OP-M Strength Start: 11/26/17 16:53 Freq: Status: Active Protocol: Document 05/26/19 16:00 DCW (Rec: 05/26/19 17:27 DCW [id number]) Hip Strength Hip Manual Muscle Testing Right Flexion (L2) 4 Good Abduction 4 Good Adduction 5 Normal Left Flexion (L2) 4 Good Abduction 4+ Good+ Adduction 5 Normal Knee Strength Knee Manual Muscle Testing Right Flexion (S2) 4+ Good+ Extension (L3) 5 Normal Left Flexion (S2) 4 Good Extension (L3) 4+ Good+ Ankle/Foot Strength Ankle and Foot Manual Muscle Testing Right Dorsiflexion (L4) 4+ Good+ Plantarflexion (S1) 3- Fair- Left Dorsiflexion (L4) 4+ Good+ Plantarflexion (S1) 3- Fair- PT-OP-Q Treatments Start: 11/19/17 17:22 Freq: Status: Active Protocol: Document 06/30/19 16:00 DCW (Rec: 06/30/19 16:59 DCW [id number]) Cardio Equipment Recumbent Elliptical (Biodex) Duration (Minutes) 6 Resistance 4 Seat Position 8 Gym Equipment Shuttle Recovery Unilateral Squats Resistance 37# Shuttle Recovery Platform Stable Bilateral Squats Resistance 75# Shuttle Recovery Platform Stable Therapeutic Exercises Sitting Exercises 3 Sitting Exercise Name LAQ Side bilateral Resistance 5# Equipment Used Ankle weights Comments kicking balls Standing Exercises Hip Abduction Standing Exercise Name Hip Abduction @ rail Reps/Minutes 2x5 Marching Standing Exercise Name Standing Marching @ rail Reps/Minutes 2x5 Gait Training Gait Activity 1 Device Used FWW Level of Assistance Mod Ax1 /c w/c follow Surface Level Distance/Duration 30' x3 Treatment Focus Knee extension, Plantar flexor activation activity tolerance PT-OP-T Assessment and Plan Start: 11/19/17 17:22 Freq: Status: Active Protocol: Document 06/30/19 16:00 DCW (Rec: 06/30/19 16:59 DCW [id number]) Physical Therapy Assessment Impairments Impairments Activity Tolerance,Balance, Coordination,Functional Activities,Functional Mobility ,Gait,Posture,ROM,Soft Tissue Mobility,Strength,Tone, Transfers Goals Four Impairment Static Standing Balance Manager Strategy & Account Goal (LTG) Pt to stand with supervision assistance for 5 seconds without assistive device LTG Duration 08/14/19 Three Impairment Transfers Manager Strategy & Account Goal (LTG) Pt to perform stand-pivot transfer CGA with FWW LTG Duration 08/14/19 Two Impairment Gait Manager Strategy & Account Goal (LTG) Pt to ambulate 100' SBA /c FWW LTG Duration 08/14/19 One Impairment LE weakness Manager Strategy & Account Goal (LTG) Ankle Plantarflexion to 3/5 bilaterally All remaining planes to 4/5 bilaterally LTG Duration 08/14/19 Progress Towards Goals Progress Towards Goals Slow Progress due to Medical Issues Progress Comments Multiple Sclerosis Assessment Summary Assessment Pt had a better visit today than her other recent sessions , did well with ambulation and was able to fully participate in all activities. Physical Therapy Plan Frequency and Duration Frequency of Treatment 1x/Week Duration of Treatment 3 months Plan of Care Start Date 05/26/19 Plan of Care End Date 08/24/19 Therapeutic Interventions Therapeutic Interventions Aquatic Therapy,Gait Training, Home Exercise Program,Joint Mobilizations,Neuromuscular Re -education,Patient/Caregiver Education,Self-Care/Home Management,Therapeutic Activities,Therapeutic Exercises Next Visit Focus/Plan Next Note Type Treatment Note Next Visit Plan Gait training, Balance, Activity tolerance, strengthening
--- NOTE | 2019-07-21 16:45 | PT.OTN ---
Current Diagnoses Multiple sclerosis (07/21/19) Muscle weakness (generalized) (07/21/19) Ataxic gait (07/21/19) Unsteadiness on feet (07/21/19) Physical Therapy Treatment Note PT-OP-A Visit Information Start: 11/19/17 17:22 Freq: Status: Active Protocol: Document 07/21/19 16:00 DCW (Rec: 07/21/19 16:45 DCW [id number]) Out-Patient Physical Therapy Visit Information Visit Information Visit Type Treatment Note Visit Start Time 16:00 Visit Stop Time 16:45 Total Visit Minutes 45 Visit Number 105 Number of LEAD INVESTIGATOR Visits 0 Evaluation Information Evaluation Date 02/06/16 PT-OP-B Current Condition Start: 11/26/17 16:53 Freq: Status: Active Protocol: Document 02/11/18 16:00 DCW (Rec: 02/11/18 16:19 DCW [id number]) Current Condition History of Current Condition History of Current Condition See Therapy Source for full patient history Treatment Goals Patient/Caregiver Goals Decrease burden of care Prior Functional Status Baseline Function- ADL's Needs Assist Baseline Function- Mobility Needs Assist Current Functional Impairments (Reported) Functional Limitations- Mobility/Gait Pt ambulates 80' CGA/Min Ax1 / c FWW Pt transfers stand-pivot Min Ax1 for balance and stability PT-OP-C Subjective Start: 11/19/17 17:22 Freq: Status: Active Protocol: Document 07/21/19 16:00 DCW (Rec: 07/21/19 16:45 DCW [id number]) OP-PT Subjective Patient Comments Patient Comments Pt notes that she is very cold today, she has been trying to exercise while at [place] PT-OP-D Balance Start: 11/26/17 16:53 Freq: Status: Active Protocol: Document 05/26/19 16:00 DCW (Rec: 05/26/19 17:27 DCW [id number]) OP-PT Balance Assessment Standing Balance Static Standing Balance Ability Fair Dynamic Standing Balance Ability Poor Standing Balance Comments Pt requires Mod Ax1 when standing without assistive device for 7 seconds Dorado Fall Scale Copyright Permission PT-OP-G Mobility & Gait Start: 11/26/17 16:53 Freq: Status: Active Protocol: Document 05/26/19 16:00 DCW (Rec: 05/26/19 17:27 DCW [id number]) OP Mobility Evaluation Transfers Sit to Stand Min Ax1 /c FWW Bed to Chair Transfers Min Ax1 /c FWW OP Gait Assessment Gait Gait Assistance Required: Minimum Assistance,1 Person Assist Distance (Feet) 38 Assistive Devices Assistive Device Front Wheeled Walker Gait Deviations General Gait Pattern Ataxic,Decreased Stride Length ,Decreased Feet Clearance,Wide Based Gait Factors Limiting Gait Function Factors Limiting Gait Function Abnormal Tonal Influences, Decreased Sensation,Decreased Strength,Poor Balance,Poor Safety Awareness PT-OP-M Strength Start: 11/26/17 16:53 Freq: Status: Active Protocol: Document 05/26/19 16:00 DCW (Rec: 05/26/19 17:27 DCW [id number]) Hip Strength Hip Manual Muscle Testing Right Flexion (L2) 4 Good Abduction 4 Good Adduction 5 Normal Left Flexion (L2) 4 Good Abduction 4+ Good+ Adduction 5 Normal Knee Strength Knee Manual Muscle Testing Right Flexion (S2) 4+ Good+ Extension (L3) 5 Normal Left Flexion (S2) 4 Good Extension (L3) 4+ Good+ Ankle/Foot Strength Ankle and Foot Manual Muscle Testing Right Dorsiflexion (L4) 4+ Good+ Plantarflexion (S1) 3- Fair- Left Dorsiflexion (L4) 4+ Good+ Plantarflexion (S1) 3- Fair- PT-OP-Q Treatments Start: 11/19/17 17:22 Freq: Status: Active Protocol: Document 07/21/19 16:00 DCW (Rec: 07/21/19 16:45 DCW [id number]) Cardio Equipment Upper Body Ergometer (UBE) Duration (Minutes) 6 RPM 60 Height 3.5 Other Forward/Backward Gym Equipment Shuttle Recovery Unilateral Squats Resistance 37# Shuttle Recovery Platform Stable Bilateral Squats Resistance 75# Shuttle Recovery Platform Stable Therapeutic Exercises Standing Exercises Hip Abduction Standing Exercise Name Hip Abduction @ rail Reps/Minutes 2x5 Marching Standing Exercise Name Standing Marching @ rail Reps/Minutes 2x5 Gait Training Gait Activity 1 Device Used FWW Level of Assistance Mod Ax1 /c w/c follow Surface Level Distance/Duration 40' x1, 20' x2 Treatment Focus Knee extension, Plantar flexor activation activity tolerance Neuro Re-Education Treatment Coordination Activities 1 Details Cone activities Equipment Cones Speed 10# ankle weight Comments Using feet to knock over cones for coordination training/ neuromuscular re-education PT-OP-T Assessment and Plan Start: 11/19/17 17:22 Freq: Status: Active Protocol: Document 07/21/19 16:00 DCW (Rec: 07/21/19 16:45 DCW [id number]) Physical Therapy Assessment Impairments Impairments Activity Tolerance,Balance, Coordination,Functional Activities,Functional Mobility ,Gait,Posture,ROM,Soft Tissue Mobility,Strength,Tone, Transfers Goals Four Impairment Static Standing Balance [employer]iture Goal (LTG) Pt to stand with supervision assistance for 5 seconds without assistive device LTG Duration 08/14/19 Three Impairment Transfers [employer] Goal (LTG) Pt to perform stand-pivot transfer CGA with FWW LTG Duration 08/14/19 Two Impairment Gait [employer] Goal (LTG) Pt to ambulate 100' SBA /c FWW LTG Duration 08/14/19 One Impairment LE weakness Care Home Goal (LTG) Ankle Plantarflexion to 3/5 bilaterally All remaining planes to 4/5 bilaterally LTG Duration 08/14/19 Progress Towards Goals Progress Towards Goals Slow Progress due to Medical Issues Progress Comments Multiple Sclerosis Assessment Summary Assessment Pt did well today despite a three week lay-off from skilled PT over the holidays. Physical Therapy Plan Frequency and Duration Frequency of Treatment 1x/Week Duration of Treatment 3 months Plan of Care Start Date 05/26/19 Plan of Care End Date 08/24/19 Therapeutic Interventions Therapeutic Interventions Aquatic Therapy,Gait Training, Home Exercise Program,Joint Mobilizations,Neuromuscular Re -education,Patient/Caregiver Education,Self-Care/Home Management,Therapeutic Activities,Therapeutic Exercises Next Visit Focus/Plan Next Note Type Treatment Note Next Visit Plan Gait training, Balance, Activity tolerance, strengthening
--- NOTE | 2019-08-16 16:03 | PT.OTN ---
Current Diagnoses Multiple sclerosis (08/16/19) Muscle weakness (generalized) (08/16/19) Ataxic gait (08/16/19) Unsteadiness on feet (08/16/19) Physical Therapy Treatment Note PT-OP-A Visit Information Start: 11/19/17 17:22 Freq: Status: Active Protocol: Document 08/16/19 15:15 DCW (Rec: 08/16/19 16:03 DCW [id number]) Out-Patient Physical Therapy Visit Information Visit Information Visit Type Treatment Note Visit Start Time 15:15 Visit Stop Time 16:00 Total Visit Minutes 45 Visit Number 106 Number of DUMPLING MACHINE OPERATOR Visits 0 Evaluation Information Evaluation Date 02/06/16 PT-OP-B Current Condition Start: 11/26/17 16:53 Freq: Status: Active Protocol: Document 02/11/18 16:00 DCW (Rec: 02/11/18 16:19 DCW [id number]) Current Condition History of Current Condition History of Current Condition See Therapy Source for full patient history Treatment Goals Patient/Caregiver Goals Decrease burden of care Prior Functional Status Baseline Function- ADL's Needs Assist Baseline Function- Mobility Needs Assist Current Functional Impairments (Reported) Functional Limitations- Mobility/Gait Pt ambulates 80' CGA/Min Ax1 / c FWW Pt transfers stand-pivot Min Ax1 for balance and stability PT-OP-C Subjective Start: 11/19/17 17:22 Freq: Status: Active Protocol: Document 08/16/19 15:15 DCW (Rec: 08/16/19 16:03 DCW [id number]) OP-PT Subjective Patient Comments Patient Comments Pt's [id number] reports he was contacted over the weekend by pt's SNF reporting a fall in the shower when pt's knees gave out. No injuries reported. PT-OP-D Balance Start: 11/26/17 16:53 Freq: Status: Active Protocol: Document 05/26/19 16:00 DCW (Rec: 05/26/19 17:27 DCW [id number]) OP-PT Balance Assessment Standing Balance Static Standing Balance Ability Fair Dynamic Standing Balance Ability Poor Standing Balance Comments Pt requires Mod Ax1 when standing without assistive device for 7 seconds Dorado Fall Scale Copyright Permission PT-OP-G Mobility & Gait Start: 11/26/17 16:53 Freq: Status: Active Protocol: Document 05/26/19 16:00 DCW (Rec: 05/26/19 17:27 DCW [id number]) OP Mobility Evaluation Transfers Sit to Stand Min Ax1 /c FWW Bed to Chair Transfers Min Ax1 /c FWW OP Gait Assessment Gait Gait Assistance Required: Minimum Assistance,1 Person Assist Distance (Feet) 38 Assistive Devices Assistive Device Front Wheeled Walker Gait Deviations General Gait Pattern Ataxic,Decreased Stride Length ,Decreased Feet Clearance,Wide Based Gait Factors Limiting Gait Function Factors Limiting Gait Function Abnormal Tonal Influences, Decreased Sensation,Decreased Strength,Poor Balance,Poor Safety Awareness PT-OP-M Strength Start: 11/26/17 16:53 Freq: Status: Active Protocol: Document 05/26/19 16:00 DCW (Rec: 05/26/19 17:27 DCW [id number]) Hip Strength Hip Manual Muscle Testing Right Flexion (L2) 4 Good Abduction 4 Good Adduction 5 Normal Left Flexion (L2) 4 Good Abduction 4+ Good+ Adduction 5 Normal Knee Strength Knee Manual Muscle Testing Right Flexion (S2) 4+ Good+ Extension (L3) 5 Normal Left Flexion (S2) 4 Good Extension (L3) 4+ Good+ Ankle/Foot Strength Ankle and Foot Manual Muscle Testing Right Dorsiflexion (L4) 4+ Good+ Plantarflexion (S1) 3- Fair- Left Dorsiflexion (L4) 4+ Good+ Plantarflexion (S1) 3- Fair- PT-OP-Q Treatments Start: 11/19/17 17:22 Freq: Status: Active Protocol: Document 08/16/19 15:15 DCW (Rec: 08/16/19 16:03 DCW [id number]) Cardio Equipment Upper Body Ergometer (UBE) Duration (Minutes) 6 RPM 60 Height 3.5 Other Forward/Backward Gym Equipment Shuttle Recovery Unilateral Squats Resistance 37# Shuttle Recovery Platform Stable Bilateral Squats Resistance 75# Shuttle Recovery Platform Stable Gait Training Gait Activity 1 Device Used FWW Level of Assistance Mod Ax1 /c w/c follow Surface Level Distance/Duration 10' x6 Treatment Focus Knee extension, Plantar flexor activation activity tolerance Neuro Re-Education Treatment Coordination Activities 1 Details Cone activities Equipment Cones Speed 10# ankle weight Comments Using feet to knock over cones for coordination training/ neuromuscular re-education PT-OP-T Assessment and Plan Start: 11/19/17 17:22 Freq: Status: Active Protocol: Document 08/16/19 15:15 DCW (Rec: 08/16/19 16:03 DCW [id number]) Physical Therapy Assessment Impairments Impairments Activity Tolerance,Balance, Coordination,Functional Activities,Functional Mobility ,Gait,Posture,ROM,Soft Tissue Mobility,Strength,Tone, Transfers Goals Four Impairment Static Standing Balance Internet Merchant Goal (LTG) Pt to stand with supervision assistance for 5 seconds without assistive device LTG Duration 08/14/19 Three Impairment Transfers Mcfp Goal (LTG) Pt to perform stand-pivot transfer CGA with FWW LTG Duration 08/14/19 Two Impairment Gait Internet Merchant Goal (LTG) Pt to ambulate 100' SBA /c FWW LTG Duration 08/14/19 One Impairment LE weakness Internet Merchant Goal (LTG) Ankle Plantarflexion to 3/5 bilaterally All remaining planes to 4/5 bilaterally LTG Duration 08/14/19 Progress Towards Goals Progress Towards Goals Slow Progress due to Medical Issues Progress Comments Multiple Sclerosis Assessment Summary Assessment Pt struggled a lot with her ambulation today, only able to ambulate ~10' at a time, although most of her problems appeared to be due to self- limiting and low motivation. Physical Therapy Plan Frequency and Duration Frequency of Treatment 1x/Week Duration of Treatment 3 months Plan of Care Start Date 05/26/19 Plan of Care End Date 08/24/19 Therapeutic Interventions Therapeutic Interventions Aquatic Therapy,Gait Training, Home Exercise Program,Joint Mobilizations,Neuromuscular Re -education,Patient/Caregiver Education,Self-Care/Home Management,Therapeutic Activities,Therapeutic Exercises Next Visit Focus/Plan Next Note Type Treatment Note Next Visit Plan Gait training, Balance, Activity tolerance, strengthening
--- NOTE | 2019-08-24 17:09 | PT.OTN ---
Current Diagnoses Multiple sclerosis (08/24/19) Muscle weakness (generalized) (08/24/19) Ataxic gait (08/24/19) Unsteadiness on feet (08/24/19) Physical Therapy Treatment Note PT-OP-A Visit Information Start: 11/19/17 17:22 Freq: Status: Active Protocol: Document 08/24/19 16:00 DCW (Rec: 08/24/19 17:09 DCW [id number]) Out-Patient Physical Therapy Visit Information Visit Information Visit Type Treatment Note Visit Start Time 16:00 Visit Stop Time 16:45 Total Visit Minutes 45 Visit Number 107 Number of NERVE SPECIALIST Visits 0 Evaluation Information Evaluation Date 02/06/16 PT-OP-B Current Condition Start: 11/26/17 16:53 Freq: Status: Active Protocol: Document 02/11/18 16:00 DCW (Rec: 02/11/18 16:19 DCW [id number]) Current Condition History of Current Condition History of Current Condition See Therapy Source for full patient history Treatment Goals Patient/Caregiver Goals Decrease burden of care Prior Functional Status Baseline Function- ADL's Needs Assist Baseline Function- Mobility Needs Assist Current Functional Impairments (Reported) Functional Limitations- Mobility/Gait Pt ambulates 80' CGA/Min Ax1 / c FWW Pt transfers stand-pivot Min Ax1 for balance and stability PT-OP-C Subjective Start: 11/19/17 17:22 Freq: Status: Active Protocol: Document 08/24/19 16:00 DCW (Rec: 08/24/19 17:09 DCW [id number]) OP-PT Subjective Patient Comments Patient Comments Pt doing well today, although admits she is tired. PT-OP-D Balance Start: 11/26/17 16:53 Freq: Status: Active Protocol: Document 08/24/19 16:00 DCW (Rec: 08/24/19 16:28 DCW [id number]) OP-PT Balance Assessment Standing Balance Static Standing Balance Ability Fair Dynamic Standing Balance Ability Poor Standing Balance Comments Pt requires Mod Ax1 when standing without assistive device for 8 seconds Dorado Fall Scale Copyright Permission PT-OP-G Mobility & Gait Start: 11/26/17 16:53 Freq: Status: Active Protocol: Document 08/24/19 16:00 DCW (Rec: 02/12/20 16:18 DCW [id number]) OP Mobility Evaluation Transfers Sit to Stand Min Ax1 /c FWW Bed to Chair Transfers Min Ax1 /c FWW OP Gait Assessment Gait Gait Assistance Required: Minimum Assistance,1 Person Assist Distance (Feet) 41 Assistive Devices Assistive Device Front Wheeled Walker Gait Deviations General Gait Pattern Ataxic,Decreased Stride Length ,Decreased Feet Clearance,Wide Based Gait Factors Limiting Gait Function Factors Limiting Gait Function Abnormal Tonal Influences, Decreased Sensation,Decreased Strength,Poor Balance,Poor Safety Awareness PT-OP-M Strength Start: 11/26/17 16:53 Freq: Status: Active Protocol: Document 08/24/19 16:00 DCW (Rec: 08/24/19 16:18 DCW [id number]) Hip Strength Hip Manual Muscle Testing Right Flexion (L2) 4 Good Abduction 4 Good Adduction 5 Normal Left Flexion (L2) 4 Good Abduction 4+ Good+ Adduction 5 Normal Knee Strength Knee Manual Muscle Testing Right Flexion (S2) 4+ Good+ Extension (L3) 5 Normal Left Flexion (S2) 4 Good Extension (L3) 4+ Good+ Ankle/Foot Strength Ankle and Foot Manual Muscle Testing Right Dorsiflexion (L4) 4+ Good+ Plantarflexion (S1) 3- Fair- Left Dorsiflexion (L4) 4+ Good+ Plantarflexion (S1) 3- Fair- PT-OP-Q Treatments Start: 11/19/17 17:22 Freq: Status: Active Protocol: Document 08/24/19 16:00 DCW (Rec: 08/24/19 17:09 DCW [id number]) Cardio Equipment Upper Body Ergometer (UBE) Duration (Minutes) 6 RPM 60 Height 3.5 Other Forward/Backward Gym Equipment Shuttle Recovery Unilateral Squats Resistance 37# Shuttle Recovery Platform Stable Bilateral Squats Resistance 75# Shuttle Recovery Platform Stable Therapeutic Ball 1 Exercise Details Hip Abduction/Adduction Ball Size/Color Red - 55 cm Lv 3 T-band Body Position Sitting Comments Foot on ball Therapeutic Exercises Sitting Exercises 3 Sitting Exercise Name LAQ Side bilateral Resistance 5# Equipment Used Ankle weights Comments kicking balls Gait Training Gait Activity 1 Device Used FWW Level of Assistance Mod Ax1 /c w/c follow Surface Level Distance/Duration 40' x2, 20' x1 Treatment Focus Knee extension, Plantar flexor activation activity tolerance PT-OP-T Assessment and Plan Start: 11/19/17 17:22 Freq: Status: Active Protocol: Document 08/24/19 16:00 DCW (Rec: 08/24/19 17:09 DCW [id number]) Physical Therapy Assessment Impairments Impairments Activity Tolerance,Balance, Coordination,Functional Activities,Functional Mobility ,Gait,Posture,ROM,Soft Tissue Mobility,Strength,Tone, Transfers Goals Four Impairment Static Standing Balance Visual Training Aide Goal (LTG) Pt to stand with supervision assistance for 5 seconds without assistive device LTG Duration 11/22/19 Three Impairment Transfers Shelter Goal (LTG) Pt to perform stand-pivot transfer CGA with FWW LTG Duration 11/22/19 Two Impairment Gait Visual Training Aide Goal (LTG) Pt to ambulate 100' SBA /c FWW LTG Duration 11/22/19 One Impairment LE weakness Visual Training Aide Goal (LTG) Ankle Plantarflexion to 3/5 bilaterally All remaining planes to 4/5 bilaterally LTG Duration 11/22/19 Progress Towards Goals Progress Towards Goals Slow Progress due to Medical Issues Progress Comments Multiple Sclerosis Assessment Summary Assessment Pt put in more effort with her ambulation today than usual, had good quality steps, although she was not able to go the same distance that she has in the past. Pt objective measurements largely similar to her last reassessment, although with her advanced MS, this is pretty much best-case scenario. Continued therapy should be beneficial in an effort to limit both loss of function and increased burden of care. Physical Therapy Plan Frequency and Duration Frequency of Treatment 1x/Week Duration of Treatment 3 months Plan of Care Start Date 08/24/19 Plan of Care End Date 11/22/19 Therapeutic Interventions Therapeutic Interventions Aquatic Therapy,Gait Training, Home Exercise Program,Joint Mobilizations,Neuromuscular Re -education,Patient/Caregiver Education,Self-Care/Home Management,Therapeutic Activities,Therapeutic Exercises Next Visit Focus/Plan Next Note Type Treatment Note Next Visit Plan Gait training, Balance, Activity tolerance, strengthening
--- NOTE | 2019-08-24 17:09 | PT.OTN ---
Current Diagnoses Multiple sclerosis (08/24/19) Muscle weakness (generalized) (08/24/19) Ataxic gait (08/24/19) Unsteadiness on feet (08/24/19) Physical Therapy Treatment Note PT-OP-A Visit Information Start: 11/19/17 17:22 Freq: Status: Active Protocol: Document 08/24/19 16:00 DCW (Rec: 08/24/19 17:09 DCW [id number]) Out-Patient Physical Therapy Visit Information Visit Information Visit Type Treatment Note Visit Start Time 16:00 Visit Stop Time 16:45 Total Visit Minutes 45 Visit Number 107 Number of FARMWORKERS Visits 0 Evaluation Information Evaluation Date 02/06/16 PT-OP-B Current Condition Start: 11/26/17 16:53 Freq: Status: Active Protocol: Document 02/11/18 16:00 DCW (Rec: 02/11/18 16:19 DCW [id number]) Current Condition History of Current Condition History of Current Condition See Therapy Source for full patient history Treatment Goals Patient/Caregiver Goals Decrease burden of care Prior Functional Status Baseline Function- ADL's Needs Assist Baseline Function- Mobility Needs Assist Current Functional Impairments (Reported) Functional Limitations- Mobility/Gait Pt ambulates 80' CGA/Min Ax1 / c FWW Pt transfers stand-pivot Min Ax1 for balance and stability PT-OP-C Subjective Start: 11/19/17 17:22 Freq: Status: Active Protocol: Document 08/24/19 16:00 DCW (Rec: 08/24/19 17:09 DCW [id number]) OP-PT Subjective Patient Comments Patient Comments Pt doing well today, although admits she is tired. PT-OP-D Balance Start: 11/26/17 16:53 Freq: Status: Active Protocol: Document 08/24/19 16:00 DCW (Rec: 08/24/19 16:28 DCW [id number]) OP-PT Balance Assessment Standing Balance Static Standing Balance Ability Fair Dynamic Standing Balance Ability Poor Standing Balance Comments Pt requires Mod Ax1 when standing without assistive device for 8 seconds Dorado Fall Scale Copyright Permission PT-OP-G Mobility & Gait Start: 11/26/17 16:53 Freq: Status: Active Protocol: Document 08/24/19 16:00 DCW (Rec: 02/12/20 16:18 DCW [id number]) OP Mobility Evaluation Transfers Sit to Stand Min Ax1 /c FWW Bed to Chair Transfers Min Ax1 /c FWW OP Gait Assessment Gait Gait Assistance Required: Minimum Assistance,1 Person Assist Distance (Feet) 41 Assistive Devices Assistive Device Front Wheeled Walker Gait Deviations General Gait Pattern Ataxic,Decreased Stride Length ,Decreased Feet Clearance,Wide Based Gait Factors Limiting Gait Function Factors Limiting Gait Function Abnormal Tonal Influences, Decreased Sensation,Decreased Strength,Poor Balance,Poor Safety Awareness PT-OP-M Strength Start: 11/26/17 16:53 Freq: Status: Active Protocol: Document 08/24/19 16:00 DCW (Rec: 08/24/19 16:18 DCW [id number]) Hip Strength Hip Manual Muscle Testing Right Flexion (L2) 4 Good Abduction 4 Good Adduction 5 Normal Left Flexion (L2) 4 Good Abduction 4+ Good+ Adduction 5 Normal Knee Strength Knee Manual Muscle Testing Right Flexion (S2) 4+ Good+ Extension (L3) 5 Normal Left Flexion (S2) 4 Good Extension (L3) 4+ Good+ Ankle/Foot Strength Ankle and Foot Manual Muscle Testing Right Dorsiflexion (L4) 4+ Good+ Plantarflexion (S1) 3- Fair- Left Dorsiflexion (L4) 4+ Good+ Plantarflexion (S1) 3- Fair- PT-OP-Q Treatments Start: 11/19/17 17:22 Freq: Status: Active Protocol: Document 08/24/19 16:00 DCW (Rec: 08/24/19 17:09 DCW [id number]) Cardio Equipment Upper Body Ergometer (UBE) Duration (Minutes) 6 RPM 60 Height 3.5 Other Forward/Backward Gym Equipment Shuttle Recovery Unilateral Squats Resistance 37# Shuttle Recovery Platform Stable Bilateral Squats Resistance 75# Shuttle Recovery Platform Stable Therapeutic Ball 1 Exercise Details Hip Abduction/Adduction Ball Size/Color Red - 55 cm Lv 3 T-band Body Position Sitting Comments Foot on ball Therapeutic Exercises Sitting Exercises 3 Sitting Exercise Name LAQ Side bilateral Resistance 5# Equipment Used Ankle weights Comments kicking balls Gait Training Gait Activity 1 Device Used FWW Level of Assistance Mod Ax1 /c w/c follow Surface Level Distance/Duration 40' x2, 20' x1 Treatment Focus Knee extension, Plantar flexor activation activity tolerance PT-OP-T Assessment and Plan Start: 11/19/17 17:22 Freq: Status: Active Protocol: Document 08/24/19 16:00 DCW (Rec: 08/24/19 17:09 DCW [id number]) Physical Therapy Assessment Impairments Impairments Activity Tolerance,Balance, Coordination,Functional Activities,Functional Mobility ,Gait,Posture,ROM,Soft Tissue Mobility,Strength,Tone, Transfers Goals Four Impairment Static Standing Balance Nuclear Security Officer Goal (LTG) Pt to stand with supervision assistance for 5 seconds without assistive device LTG Duration 11/22/19 Three Impairment Transfers [facility] Goal (LTG) Pt to perform stand-pivot transfer CGA with FWW LTG Duration 11/22/19 Two Impairment Gait Nuclear Security Officer Goal (LTG) Pt to ambulate 100' SBA /c FWW LTG Duration 11/22/19 One Impairment LE weakness Nuclear Security Officer Goal (LTG) Ankle Plantarflexion to 3/5 bilaterally All remaining planes to 4/5 bilaterally LTG Duration 11/22/19 Progress Towards Goals Progress Towards Goals Slow Progress due to Medical Issues Progress Comments Multiple Sclerosis Assessment Summary Assessment Pt put in more effort with her ambulation today than usual, had good quality steps, although she was not able to go the same distance that she has in the past. Pt objective measurements largely similar to her last reassessment, although with her advanced MS, this is pretty much best-case scenario. Continued therapy should be beneficial in an effort to limit both loss of function and increased burden of care. Physical Therapy Plan Frequency and Duration Frequency of Treatment 1x/Week Duration of Treatment 3 months Plan of Care Start Date 08/24/19 Plan of Care End Date 11/22/19 Therapeutic Interventions Therapeutic Interventions Aquatic Therapy,Gait Training, Home Exercise Program,Joint Mobilizations,Neuromuscular Re -education,Patient/Caregiver Education,Self-Care/Home Management,Therapeutic Activities,Therapeutic Exercises Next Visit Focus/Plan Next Note Type Treatment Note Next Visit Plan Gait training, Balance, Activity tolerance, strengthening
--- NOTE | 2019-08-24 17:10 | PT.OPPOC ---
Physical, Occupational & Speech Therapy At [facility] Current Diagnoses Multiple sclerosis (08/24/19) Muscle weakness (generalized) (08/24/19) Ataxic gait (08/24/19) Unsteadiness on feet (08/24/19) Visit Care Team Role Provider Type Dariana Stratton DO Attending Provider Physician Family Provider Primary Care Provider Specialty: Family Practice Address: [address] [place] [address], [address], [facility] Email: [email or web address] Plan Of Care PT-OP-T Assessment and Plan Start: 11/19/17 17:22 Freq: Status: Active Protocol: Document 08/24/19 16:00 DCW (Rec: 08/24/19 17:09 DCW [id number]) Physical Therapy Assessment Impairments Impairments Activity Tolerance,Balance, Coordination,Functional Activities,Functional Mobility ,Gait,Posture,ROM,Soft Tissue Mobility,Strength,Tone, Transfers Goals Four Impairment Static Standing Balance Payloader Machine Operator Goal (LTG) Pt to stand with supervision assistance for 5 seconds without assistive device LTG Duration 11/22/19 Three Impairment Transfers Retirement Goal (LTG) Pt to perform stand-pivot transfer CGA with FWW LTG Duration 11/22/19 Two Impairment Gait Payloader Machine Operator Goal (LTG) Pt to ambulate 100' SBA /c FWW LTG Duration 11/22/19 One Impairment LE weakness Retirement Goal (LTG) Ankle Plantarflexion to 3/5 bilaterally All remaining planes to 4/5 bilaterally LTG Duration 11/22/19 Progress Towards Goals Progress Towards Goals Slow Progress due to Medical Issues Progress Comments Multiple Sclerosis Assessment Summary Assessment Pt put in more effort with her ambulation today than usual, had good quality steps, although she was not able to go the same distance that she has in the past. Pt objective measurements largely similar to her last reassessment, although with her advanced MS, this is pretty much best-case scenario. Continued therapy should be beneficial in an effort to limit both loss of function and increased burden of care. Physical Therapy Plan Frequency and Duration Frequency of Treatment 1x/Week Duration of Treatment 3 months Plan of Care Start Date 08/24/19 Plan of Care End Date 11/22/19 Therapeutic Interventions Therapeutic Interventions Aquatic Therapy,Gait Training, Home Exercise Program,Joint Mobilizations,Neuromuscular Re -education,Patient/Caregiver Education,Self-Care/Home Management,Therapeutic Activities,Therapeutic Exercises Next Visit Focus/Plan Next Note Type Treatment Note Next Visit Plan Gait training, Balance, Activity tolerance, strengthening Plan of Care Dates Plan of Care Start Date 08/24/19 Plan of Care End Date 11/22/19 Electronically Signed by: Daryl Robertson, PT 08/24/19 [id number] Please Sign and Return: I have reviewed this Plan of Care and certify that the skilled therapy services above are required to meet the patient?s needs. Physician Signature Date Printed Name and Credentials Clinical Instructor Signature Printed Name and Credentials
--- NOTE | 2019-08-30 16:48 | PT.OTN ---
Current Diagnoses Multiple sclerosis (08/30/19) Muscle weakness (generalized) (08/30/19) Ataxic gait (08/30/19) Unsteadiness on feet (08/30/19) Physical Therapy Treatment Note PT-OP-A Visit Information Start: 11/19/17 17:22 Freq: Status: Active Protocol: Document 08/30/19 16:00 DCW (Rec: 08/30/19 16:48 DCW [id number]) Out-Patient Physical Therapy Visit Information Visit Information Visit Type Treatment Note Visit Start Time 16:00 Visit Stop Time 16:45 Total Visit Minutes 45 Visit Number 108 Number of TECHNICAL AGRONOMIST Visits 0 Evaluation Information Evaluation Date 02/06/16 PT-OP-B Current Condition Start: 11/26/17 16:53 Freq: Status: Active Protocol: Document 02/11/18 16:00 DCW (Rec: 02/11/18 16:19 DCW [id number]) Current Condition History of Current Condition History of Current Condition See Therapy Source for full patient history Treatment Goals Patient/Caregiver Goals Decrease burden of care Prior Functional Status Baseline Function- ADL's Needs Assist Baseline Function- Mobility Needs Assist Current Functional Impairments (Reported) Functional Limitations- Mobility/Gait Pt ambulates 80' CGA/Min Ax1 / c FWW Pt transfers stand-pivot Min Ax1 for balance and stability PT-OP-C Subjective Start: 11/19/17 17:22 Freq: Status: Active Protocol: Document 08/30/19 16:00 DCW (Rec: 08/30/19 16:48 DCW [id number]) OP-PT Subjective Patient Comments Patient Comments Pt feels pretty good today. PT-OP-D Balance Start: 11/26/17 16:53 Freq: Status: Active Protocol: Document 08/24/19 16:00 DCW (Rec: 08/24/19 16:28 DCW [id number]) OP-PT Balance Assessment Standing Balance Static Standing Balance Ability Fair Dynamic Standing Balance Ability Poor Standing Balance Comments Pt requires Mod Ax1 when standing without assistive device for 8 seconds Dorado Fall Scale Copyright Permission PT-OP-G Mobility & Gait Start: 11/26/17 16:53 Freq: Status: Active Protocol: Document 08/24/19 16:00 DCW (Rec: 08/24/19 16:18 DCW [id number]) OP Mobility Evaluation Transfers Sit to Stand Min Ax1 /c FWW Bed to Chair Transfers Min Ax1 /c FWW OP Gait Assessment Gait Gait Assistance Required: Minimum Assistance,1 Person Assist Distance (Feet) 41 Assistive Devices Assistive Device Front Wheeled Walker Gait Deviations General Gait Pattern Ataxic,Decreased Stride Length ,Decreased Feet Clearance,Wide Based Gait Factors Limiting Gait Function Factors Limiting Gait Function Abnormal Tonal Influences, Decreased Sensation,Decreased Strength,Poor Balance,Poor Safety Awareness PT-OP-M Strength Start: 11/26/17 16:53 Freq: Status: Active Protocol: Document 08/24/19 16:00 DCW (Rec: 08/24/19 16:18 DCW [id number]) Hip Strength Hip Manual Muscle Testing Right Flexion (L2) 4 Good Abduction 4 Good Adduction 5 Normal Left Flexion (L2) 4 Good Abduction 4+ Good+ Adduction 5 Normal Knee Strength Knee Manual Muscle Testing Right Flexion (S2) 4+ Good+ Extension (L3) 5 Normal Left Flexion (S2) 4 Good Extension (L3) 4+ Good+ Ankle/Foot Strength Ankle and Foot Manual Muscle Testing Right Dorsiflexion (L4) 4+ Good+ Plantarflexion (S1) 3- Fair- Left Dorsiflexion (L4) 4+ Good+ Plantarflexion (S1) 3- Fair- PT-OP-Q Treatments Start: 11/19/17 17:22 Freq: Status: Active Protocol: Document 08/30/19 16:00 DCW (Rec: 08/30/19 16:48 DCW [id number]) Cardio Equipment Upper Body Ergometer (UBE) Duration (Minutes) 6 RPM 60 Height 3.5 Other Forward/Backward Gym Equipment Shuttle Recovery Unilateral Squats Resistance 37# Shuttle Recovery Platform Stable Bilateral Squats Resistance 75# Shuttle Recovery Platform Stable Therapeutic Exercises Sitting Exercises 3 Sitting Exercise Name LAQ Side bilateral Resistance 5# Equipment Used Ankle weights Standing Exercises Hamstring Curls Standing Exercise Name HS curls @ rail Resistance 4# Reps/Minutes 2x5 Hip Abduction Standing Exercise Name Hip Abduction @ rail Resistance 4# Reps/Minutes 2x5 Marching Standing Exercise Name Standing Marching @ rail Resistance 4# Reps/Minutes 2x5 Gait Training Gait Activity 1 Device Used FWW Level of Assistance Mod Ax1 /c w/c follow Surface Level Distance/Duration 40' x2 Treatment Focus Knee extension, Plantar flexor activation activity tolerance Neuro Re-Education Treatment Coordination Activities 1 Details Cone activities Equipment Cones Speed 10# ankle weight Comments Using feet to knock over cones for coordination training/ neuromuscular re-education PT-OP-T Assessment and Plan Start: 11/19/17 17:22 Freq: Status: Active Protocol: Document 08/30/19 16:00 DCW (Rec: 08/30/19 16:48 DCW [id number]) Physical Therapy Assessment Impairments Impairments Activity Tolerance,Balance, Coordination,Functional Activities,Functional Mobility ,Gait,Posture,ROM,Soft Tissue Mobility,Strength,Tone, Transfers Goals Four Impairment Static Standing Balance Accounting Supervisor Goal (LTG) Pt to stand with supervision assistance for 5 seconds without assistive device LTG Duration 11/22/19 Three Impairment Transfers Accounting Supervisor Goal (LTG) Pt to perform stand-pivot transfer CGA with FWW LTG Duration 11/22/19 Two Impairment Gait Accounting Supervisor Goal (LTG) Pt to ambulate 100' SBA /c FWW LTG Duration 11/22/19 One Impairment LE weakness Accounting Supervisor Goal (LTG) Ankle Plantarflexion to 3/5 bilaterally All remaining planes to 4/5 bilaterally LTG Duration 11/22/19 Progress Towards Goals Progress Towards Goals Slow Progress due to Medical Issues Progress Comments Multiple Sclerosis Assessment Summary Assessment Pt had some improved gait today, good steps with an acceptable distance. Pt also looked better weight-shifting during her standing exercises. Physical Therapy Plan Frequency and Duration Frequency of Treatment 1x/Week Duration of Treatment 3 months Plan of Care Start Date 08/24/19 Plan of Care End Date 11/22/19 Therapeutic Interventions Therapeutic Interventions Aquatic Therapy,Gait Training, Home Exercise Program,Joint Mobilizations,Neuromuscular Re -education,Patient/Caregiver Education,Self-Care/Home Management,Therapeutic Activities,Therapeutic Exercises Next Visit Focus/Plan Next Note Type Treatment Note Next Visit Plan Gait training, Balance, Activity tolerance, strengthening
--- NOTE | 2019-09-08 16:54 | PT.OTN ---
Current Diagnoses Multiple sclerosis (09/08/19) Muscle weakness (generalized) (09/08/19) Ataxic gait (09/08/19) Unsteadiness on feet (09/08/19) Physical Therapy Treatment Note PT-OP-A Visit Information Start: 11/19/17 17:22 Freq: Status: Active Protocol: Document 09/08/19 16:00 DCW (Rec: 09/08/19 16:54 DCW [id number]) Out-Patient Physical Therapy Visit Information Visit Information Visit Type Treatment Note Visit Start Time 16:00 Visit Stop Time 16:45 Total Visit Minutes 45 Visit Number 109 Number of PLEAT TAPER Visits 0 Evaluation Information Evaluation Date 02/06/16 PT-OP-B Current Condition Start: 11/26/17 16:53 Freq: Status: Active Protocol: Document 02/11/18 16:00 DCW (Rec: 02/11/18 16:19 DCW [id number]) Current Condition History of Current Condition History of Current Condition See Therapy Source for full patient history Treatment Goals Patient/Caregiver Goals Decrease burden of care Prior Functional Status Baseline Function- ADL's Needs Assist Baseline Function- Mobility Needs Assist Current Functional Impairments (Reported) Functional Limitations- Mobility/Gait Pt ambulates 80' CGA/Min Ax1 / c FWW Pt transfers stand-pivot Min Ax1 for balance and stability PT-OP-C Subjective Start: 11/19/17 17:22 Freq: Status: Active Protocol: Document 09/08/19 16:00 DCW (Rec: 09/08/19 16:54 DCW [id number]) OP-PT Subjective Patient Comments Patient Comments Pt reports she feels fine. PT-OP-D Balance Start: 11/26/17 16:53 Freq: Status: Active Protocol: Document 08/24/19 16:00 DCW (Rec: 08/24/19 16:28 DCW [id number]) OP-PT Balance Assessment Standing Balance Static Standing Balance Ability Fair Dynamic Standing Balance Ability Poor Standing Balance Comments Pt requires Mod Ax1 when standing without assistive device for 8 seconds Dorado Fall Scale Copyright Permission PT-OP-G Mobility & Gait Start: 11/26/17 16:53 Freq: Status: Active Protocol: Document 08/24/19 16:00 DCW (Rec: 08/24/19 16:18 DCW [id number]) OP Mobility Evaluation Transfers Sit to Stand Min Ax1 /c FWW Bed to Chair Transfers Min Ax1 /c FWW OP Gait Assessment Gait Gait Assistance Required: Minimum Assistance,1 Person Assist Distance (Feet) 41 Assistive Devices Assistive Device Front Wheeled Walker Gait Deviations General Gait Pattern Ataxic,Decreased Stride Length ,Decreased Feet Clearance,Wide Based Gait Factors Limiting Gait Function Factors Limiting Gait Function Abnormal Tonal Influences, Decreased Sensation,Decreased Strength,Poor Balance,Poor Safety Awareness PT-OP-M Strength Start: 11/26/17 16:53 Freq: Status: Active Protocol: Document 08/24/19 16:00 DCW (Rec: 08/24/19 16:18 DCW [id number]) Hip Strength Hip Manual Muscle Testing Right Flexion (L2) 4 Good Abduction 4 Good Adduction 5 Normal Left Flexion (L2) 4 Good Abduction 4+ Good+ Adduction 5 Normal Knee Strength Knee Manual Muscle Testing Right Flexion (S2) 4+ Good+ Extension (L3) 5 Normal Left Flexion (S2) 4 Good Extension (L3) 4+ Good+ Ankle/Foot Strength Ankle and Foot Manual Muscle Testing Right Dorsiflexion (L4) 4+ Good+ Plantarflexion (S1) 3- Fair- Left Dorsiflexion (L4) 4+ Good+ Plantarflexion (S1) 3- Fair- PT-OP-Q Treatments Start: 11/19/17 17:22 Freq: Status: Active Protocol: Document 09/08/19 16:00 DCW (Rec: 09/08/19 16:54 DCW [id number]) Cardio Equipment Upper Body Ergometer (UBE) Duration (Minutes) 6 RPM 60 Height 3.5 Other Forward/Backward Gym Equipment Shuttle Recovery Unilateral Squats Resistance 37# Shuttle Recovery Platform Stable Bilateral Squats Resistance 75# Shuttle Recovery Platform Stable Therapeutic Exercises Sitting Exercises 4 Sitting Exercise Name Seated Marching Side bilateral Resistance 5# Equipment Used Ankle weights 3 Sitting Exercise Name LAQ Side bilateral Resistance 5# Equipment Used Ankle weights Comments kicking balls 2 Sitting Exercise Name Hip abduction Side bilateral Resistance Lv 3 Equipment Used T-band 1 Sitting Exercise Name Hamstring Curls Side bilateral Resistance Lv 3 Equipment Used T-band Gait Training Gait Activity 1 Device Used FWW Level of Assistance Mod Ax1 /c w/c follow Surface Level Distance/Duration 10' x5 Treatment Focus Knee extension, Plantar flexor activation activity tolerance PT-OP-T Assessment and Plan Start: 11/19/17 17:22 Freq: Status: Active Protocol: Document 09/08/19 16:00 DCW (Rec: 09/08/19 16:54 DCW [id number]) Physical Therapy Assessment Impairments Impairments Activity Tolerance,Balance, Coordination,Functional Activities,Functional Mobility ,Gait,Posture,ROM,Soft Tissue Mobility,Strength,Tone, Transfers Goals Four Impairment Static Standing Balance Inserter Operator Goal (LTG) Pt to stand with supervision assistance for 5 seconds without assistive device LTG Duration 11/22/19 Three Impairment Transfers Inserter Operator Goal (LTG) Pt to perform stand-pivot transfer CGA with FWW LTG Duration 11/22/19 Two Impairment Gait Inserter Operator Goal (LTG) Pt to ambulate 100' SBA /c FWW LTG Duration 11/22/19 One Impairment LE weakness Inserter Operator Goal (LTG) Ankle Plantarflexion to 3/5 bilaterally All remaining planes to 4/5 bilaterally LTG Duration 11/22/19 Progress Towards Goals Progress Towards Goals Slow Progress due to Medical Issues Progress Comments Multiple Sclerosis Assessment Summary Assessment Pt struggled a lot today when trying to walk, fatigued very quickly and was not able to ambulate much distance at all. Pt did initially start with good steps, not allowing her knees to buckle, but after the second 10' attempt, also began with buckling knees. Physical Therapy Plan Frequency and Duration Frequency of Treatment 1x/Week Duration of Treatment 3 months Plan of Care Start Date 08/24/19 Plan of Care End Date 11/22/19 Therapeutic Interventions Therapeutic Interventions Aquatic Therapy,Gait Training, Home Exercise Program,Joint Mobilizations,Neuromuscular Re -education,Patient/Caregiver Education,Self-Care/Home Management,Therapeutic Activities,Therapeutic Exercises Next Visit Focus/Plan Next Note Type Treatment Note Next Visit Plan Gait training, Balance, Activity tolerance, strengthening
--- NOTE | 2019-09-28 12:02 | PT.OPDS ---
Current Diagnoses Multiple sclerosis (09/08/19) Muscle weakness (generalized) (09/08/19) Ataxic gait (09/08/19) Unsteadiness on feet (09/08/19) Visit Care Team Role Provider Type Dariana Stratton DO Attending Provider Physician Family Provider Primary Care Provider Specialty: Family Practice Address: [address] [place] [address] Email: [email or web address] Visit Number Visit Number 109 Discharge Summary PT-OP-B Current Condition Start: 11/26/17 16:53 Freq: Status: Active Protocol: Document 02/11/18 16:00 DCW (Rec: 02/11/18 16:19 DCW [id number]) Current Condition History of Current Condition History of Current Condition See Therapy Source for full patient history Treatment Goals Patient/Caregiver Goals Decrease burden of care Prior Functional Status Baseline Function- ADL's Needs Assist Baseline Function- Mobility Needs Assist Current Functional Impairments (Reported) Functional Limitations- Mobility/Gait Pt ambulates 80' CGA/Min Ax1 / c FWW Pt transfers stand-pivot Min Ax1 for balance and stability PT-OP-C Subjective Start: 11/19/17 17:22 Freq: Status: Active Protocol: Document 09/08/19 16:00 DCW (Rec: 09/08/19 16:54 DCW [id number]) OP-PT Subjective Patient Comments Patient Comments Pt reports she feels fine. PT-OP-D Balance Start: 11/26/17 16:53 Freq: Status: Active Protocol: Document 08/24/19 16:00 DCW (Rec: 08/24/19 16:28 DCW [id number]) OP-PT Balance Assessment Standing Balance Static Standing Balance Ability Fair Dynamic Standing Balance Ability Poor Standing Balance Comments Pt requires Mod Ax1 when standing without assistive device for 8 seconds Dorado Fall Scale Copyright Permission PT-OP-G Mobility & Gait Start: 11/26/17 16:53 Freq: Status: Active Protocol: Document 08/24/19 16:00 DCW (Rec: 08/24/19 16:18 DCW [id number]) OP Mobility Evaluation Transfers Sit to Stand Min Ax1 /c FWW Bed to Chair Transfers Min Ax1 /c FWW OP Gait Assessment Gait Gait Assistance Required: Minimum Assistance,1 Person Assist Distance (Feet) 41 Assistive Devices Assistive Device Front Wheeled Walker Gait Deviations General Gait Pattern Ataxic,Decreased Stride Length ,Decreased Feet Clearance,Wide Based Gait Factors Limiting Gait Function Factors Limiting Gait Function Abnormal Tonal Influences, Decreased Sensation,Decreased Strength,Poor Balance,Poor Safety Awareness PT-OP-M Strength Start: 11/26/17 16:53 Freq: Status: Active Protocol: Document 08/24/19 16:00 DCW (Rec: 08/24/19 16:18 DCW [id number]) Hip Strength Hip Manual Muscle Testing Right Flexion (L2) 4 Good Abduction 4 Good Adduction 5 Normal Left Flexion (L2) 4 Good Abduction 4+ Good+ Adduction 5 Normal Knee Strength Knee Manual Muscle Testing Right Flexion (S2) 4+ Good+ Extension (L3) 5 Normal Left Flexion (S2) 4 Good Extension (L3) 4+ Good+ Ankle/Foot Strength Ankle and Foot Manual Muscle Testing Right Dorsiflexion (L4) 4+ Good+ Plantarflexion (S1) 3- Fair- Left Dorsiflexion (L4) 4+ Good+ Plantarflexion (S1) 3- Fair- PT-OP-T Assessment and Plan Start: 11/19/17 17:22 Freq: Status: Active Protocol: Document 09/28/19 11:58 DCW (Rec: 09/28/19 12:02 DCW [id number]) Physical Therapy Assessment Assessment Summary Assessment Due to current concerns regarding the Coronavirus and Covid-19, pt has been quarantined in her SNF for the past three weeks, and will likely continue for a few more . Additionally, due to changes in polocy at the PT clinic, pt will not be able to be seen for at least another two weeks. After discussing with pt's sister, pt will be discharged at this time, with the understanding that she will return to skilled therapy with a new referral at a later date. Physical Therapy Plan Discharge Physical Therapy Discharge Reasons No Longer Attending PT
== END 2019-09-29 08:19 ==
LOC: PHYS 16:00
PROVIDERS: Family Provider Family Medicine; PCP Family Medicine; Visit Provider Family Medicine
DX: G35 Multiple sclerosis (principal); R26.0 Ataxic gait; R26.81 Unsteadiness on feet; M62.81 Muscle weakness (generalized)
CPT/HCPCS: 97110; 97112; 97116; 97140; 97166; 97535

== ENCOUNTER → 2019-11-30 17:35 | Outpatient (CLI) | payer OTHER, SELFPAY ==
--- NOTE | 2019-11-30 17:38 | DI.RAD.S_ITS ---
PROCEDURE: XR KNEE LT 1TO2V INDICATIONS: Pain after fall TECHNIQUE: 2 views of the knee were acquired. COMPARISON: [facility], , KNEE 3V LEFT, 04/05/2014, 11:19. [facility], , KNEE 3V LEFT, 11/15/2012, 16:45. FINDINGS: Bones: No fractures or dislocations. No suspicious bony lesions. There is moderate degenerative knee joint osteoarthritis is indicated by joint space narrowing on the frontal view. Soft tissues: No joint effusion. No suspicious soft tissue calcifications. IMPRESSION: Moderate medial compartment degenerative knee joint osteoarthritis, no fracture found. If unusual symptoms persist followup by MR or delayed plain film imaging may be warranted. Dictated by: Chanucey Dia M.D. on 12/01/2019 at 9:18 Approved by: Chauncey Dia M.D. on 12/01/2019 at 9:19
--- NOTE | 2019-11-30 17:38 | DI.RAD.S_ITS ---
PROCEDURE: XR ANKLE LT MIN 3V INDICATIONS: Pain after fall TECHNIQUE: 3 views of the ankle were acquired. COMPARISON: [facility], CR, XR ANKLE LT MIN 3V, 11/25/2018, 22:15. [facility], CR, ANKLE 3 VIEWS LEFT, 04/05/2014, 11:19. FINDINGS: Bones: No fractures or dislocations but there is an exostosis projecting inferiorly from the inferior tip of the medial malleolus, potentially impinging against the medial border of the talus immediately adjacent. Additionally, a small accessory ossicle or old avulsion fragment appears present just beneath the inferior tip of the lateral malleolus without adjacent soft tissue swelling. Ankle mortise is normally aligned. No suspicious bony lesions. Soft tissues: No tibiotalar joint effusion. Achilles tendon appears normal. IMPRESSION: No acute trauma found. Exostosis and chronic appearing accessory ossicle or old avulsion fragment as noted. Dictated by: Chauncey Dia M.D. on 12/01/2019 at 9:10 Approved by: Chauncey Dia M.D. on 12/01/2019 at 9:13
== END ==
PROVIDERS: Family Provider Family Medicine; PCP Nurse Practitioner Family; Referring Provider Nurse Practitioner Family; Visit Provider Nurse Practitioner Family
DX: M25.572 Pain in left ankle and joints of left foot (principal); M25.562 Pain in left knee; M17.12 Unilateral primary osteoarthritis, left knee; M89.9 Disorder of bone, unspecified
CPT/HCPCS: 73560; 73610

== ENCOUNTER → 2019-12-21 13:19 | Outpatient (RCR) | payer OTHER, SELFPAY ==
--- NOTE | 2019-12-20 13:06 | ST.OPDS ---
Visit Care Team Role Provider Type Dariana Stratton DO Family Provider Non-Staff Primary Care Provider Address: [address] [place] [address], [address], [place], [address] Nancy Alejandra Floyd Attending Provider Non-Staff Address: [address] [facility], [place], [address] TIE TAPE MACHINE OPERATOR Treatment Note TIE TAPE MACHINE OPERATOR Treatment Note Start: 01/05/18 17:54 Freq: Status: Active Protocol: Document 08/03/18 07:42 KAYLEY (Rec: 08/04/18 08:15 KAYLEY [id number]) Speech Pathology Treatment Note Session Time Visit Start Time 14:30 Visit Stop Time 15:15 Total Visit Minutes 45 Visit Information Visit Number 01/19 Plan of Care Dates 06/01/18 - 09/01/18 Insurance Information [facility] Advantage Setting Treatment Setting Outpatient Care Visit Type Note Type Discharge Summary General Information General Information 62-yr-old patient with oropharyngeal dysphagia, dysarthria, and cognitive impairments secondary to MS. Pt is wheelchair bound and lives at [facility]. The pt is also receiving PT and OT therapy. Recommended diet: Mechanical Soft, thin liquids from straw with chin tuck. Pt's sister is CLAUDIA. Subjective Observations/Patient Presentation Pt arrived on time with her [id number], who was present throughout the session . No new complaints. Chief Complaint(s) Speech,Swallowing,Cognitive Rehab Expectation/Goals: Patient Goals Increase speech intelligibility Rehab Expectation/Goals: Parent/Guardian Increase speech /Slag Motor Operator Goals intelligibility Patient Knowledge/Awareness of TIE TAPE MACHINE OPERATOR Role Good in Treatment Parent/Caretake Knowledge/Awareness of Good TIE TAPE MACHINE OPERATOR Role in Treatment Patient/Caregiver Compliance with Home Good Exercise Program Objective Short Term Goals 1. Pt will complete oral motor exercises with min v/v cues to increase strength and coordination of musculature for speech and swallow. Goal Met 2. Pt will use speech strategies with mod v/v cues to increase speech intelligibility in functional conversations. Goal Met 3. Pt will use compensatory swallow strategies (small sips , chin tuck) with min cues during oral intake to reduce risk of aspiration. Goal Met 4. Family/Caregivers will verbalize understanding of cuing strategies to promote target behaviors in the pt and reduce discouragement. Goal Met Shelter Goals 1. Pt will complete oral motor and swallow exercises with min cues to promote longwall shearer operator compliance with HEP for improved speech intelligibility and swallow safety. Goal Met 2. Pt will use speech strategies with min v/v cues in functional conversations to increase intelligibility and ability to express her wants and needs effectively. Goal Met 3. Pt will use compensatory swallow strategies independently with 75% accuracy to reduce risk of aspiration and promote swallow safety for least restrictive diet to meet nutritional and hydration needs. Goal Met 4. Family/Caregivers will demonstrate appropriate cueing of pt for target behaviors with 80% accuracy to promote carryover of strategies and HEP targeting treatment goals. Goal Met Treatment Activities Pt recalled tx mantra (Big mouth, big voice) independently. Visual reminder continues to be attached to pt's water bottle. Pt recalled safe swallow strategies x3 ( small bites, slow rate, chin tuck) with verbal prompts. Dysphagia: Evaluated pt's swallow with oral trials of yogurt, soft cookie, benjamin cracker and thin liquid via straw. Pt independently employed safe swallow strategies and exhibited no overt s/sx of aspiration with all trials. Dysarthria: Pt produced conversational loudness levels between 62-70 dB in spontaneous conversation (near or within normal conversational levels) and read functional phrases pertinent to her daily life with avg loudness of 73 dB, WNL. Pt was 90% intelligible to this familiar listenener with good hearing in a quiet environment. In same environment, she was less intelligible to her brother-in -law, who is hard of hearing; however, when asked to repeat herself, she did so with increased loudness and improved enunciation to successfully communicate with him. No more than one repetition was needed per occurrence. Education provided to pt/ family RE discharge plan and s /sx of decline in areas of Speech Pathology treatment that may warrant return to skilled intervention in the future as MS progresses. Pt/ family verbalized understanding. Assessment Patient Response to Treatment Good Rehab Potential Good Impairments Identified Dysarthria,Dysphagia,Speech Intelligibility Additional Impairments Identified Cognitive-Linguistic Skills Progress Towards Goals Good Progress Assessment of Overall Progress Improving Assessment of Improvement Over the course of treatment, the pt has made great improvement in recalling speech and safe swallow strategies independently. She demonstrates ability to speak WFL for short comments and questions. She exhibits significant decline in speech intelligibility with increased length and/or complexity of utterances; however, she is able to increase vocal loudness as needed to participate in such communication and is appropriately responsive when asked to repeat herself or speak more loudly. She is able to make her basic wants and needs known, and frequently teases family members with appropriate language and humor . She does require moderate cuing and benefits from visual reminders which are in place in her functional environment. She has excellent support from both her family and facility staff who assist her in completing HEP tasks and recalling strategies. The pt has also demonstrated improved swallow safety with use of safe swallow strategies , which she employs independently. Per pt/family report, she does exhibit occasional coughing during meals, particularly if she is distracted or conversing while eating. The pt verbalized awareness of these obstacles and steps to avoid them. She is safely tolerating regular texture with moisture added and thin liquids via straw. The pt has met her goals of treatment and reached the highest expected level of function in areas of dysphagia and dysarthria. Although not formally assessed or treated, the pt does exhibit occasional confusion, particularly with tracking information ( receptively and expressively) of moderate or greater length and complexity. 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 The pt is appropriate for discharge from skilled intervention at this time. She and her family are in agreement with this plan. Reviewed with Patient Goals,Progress Being Made,Home Exercise Program Patient/Caregiver Understanding Good Plan Therapeutic Contents Client Education,Home Exercise Program,Intelligibility,Oral Motor Training Provided Patient/Caregiver Instruction Home Exercise Program,Plan of Care,Questions/Concerns Therapy Recommendations Discharge to Home Exercise Program
== END ==
LOC: SP 01-05 12:38
PROVIDERS: Family Provider Family Medicine; PCP Family Medicine; Visit Provider Physician Assistant
DX: G35 Multiple sclerosis (principal); R13.12 Dysphagia, oropharyngeal phase; R47.1 Dysarthria and anarthria
CPT/HCPCS: 92507; 92522; 92526; 92610

== ENCOUNTER → 2020-09-15 15:03 | Outpatient (ROUT) | payer OTHER, SELFPAY ==
[2020-09-15 15:05] LABS: Bacteria Urine None Seen
[2020-09-15 15:08] LABS: Appearance Urine UA CLOUDY; Bilirubin Urine UA NEGATIVE (NEGATIVE); Color Urine UA YELLOW; Glucose Urine UA NEGATIVE (Negative); Ketones Urine UA NEGATIVE (NEGATIVE); Leukocyte Esterase Urine UA 3+ (NEGATIVE); Nitrite Urine UA POSITIVE (Negative); Occult Blood Urine UA 1+ (Negative); Protein Urine UA 1+ (Negative); Specific Gravity Urine UA 1.015 (1.000-1.035); Urobilinogen Urine UA 0.2 E.U./dL (0.2)
[2020-09-15 15:13] LABS: pH Urine UA 8.5 (4.5-8.0)
[2020-09-15 15:15] LABS: Amorphous Sediment Urine 2+; Culture Indicated Urine Cult Not Indicated; RBC Urine 1-5/HPF (0-5/HPF); Renal Epithelial Cells Urine 1-5/HPF (0-1/HPF); Squamous Epithelial Cell Urine 5-10 /HPF (0-5/HPF); WBC Urine 10-30/HPF (0-5/HPF)
== END ==
PROVIDERS: PCP Nurse Practitioner Family; Visit Provider Nurse Practitioner Family
DX: R53.1 Weakness (principal)
CPT/HCPCS: 81001

== ENCOUNTER → 2020-09-20 11:00 | Outpatient (ROUT) | payer OTHER, SELFPAY ==
[2020-09-20 11:32] LABS: Appearance Urine UA SL CLOUDY; Bilirubin Urine UA NEGATIVE (NEGATIVE); Color Urine UA YELLOW; Glucose Urine UA NEGATIVE (Negative); Ketones Urine UA NEGATIVE (NEGATIVE); Leukocyte Esterase Urine UA 3+ (NEGATIVE); Nitrite Urine UA POSITIVE (Negative); Occult Blood Urine UA TRACE-INTACT (Negative); Protein Urine UA NEGATIVE (Negative); Specific Gravity Urine UA 1.015 (1.000-1.035); Urobilinogen Urine UA 0.2 E.U./dL (0.2)
[2020-09-20 12:28] LABS: Amorphous Sediment Urine 1+; Bacteria Urine Many (>30); RBC Urine 0-1/HPF (0-5/HPF); Squamous Epithelial Cell Urine 1-5 /HPF (0-5/HPF); WBC Urine 10-30/HPF (0-5/HPF)
== END ==
PROVIDERS: PCP Nurse Practitioner Family; Visit Provider Nurse Practitioner Family
DX: R53.1 Weakness (principal); R39.89 Other symptoms and signs involving the genitourinary system
CPT/HCPCS: 81001; 87077; 87086; 87186

== ENCOUNTER → 2020-10-10 20:50 | Outpatient (ROUT) | payer OTHER, SELFPAY ==
[2020-10-10 20:52] LABS: RBC Urine None Seen (0-5/HPF)
[2020-10-10 20:56] LABS: Appearance Urine UA CLEAR; Bilirubin Urine UA NEGATIVE (NEGATIVE); Color Urine UA YELLOW; Glucose Urine UA NEGATIVE (Negative); Ketones Urine UA NEGATIVE (NEGATIVE); Leukocyte Esterase Urine UA NEGATIVE (NEGATIVE); Nitrite Urine UA NEGATIVE (Negative); Occult Blood Urine UA NEGATIVE (Negative); Protein Urine UA NEGATIVE (Negative); Urobilinogen Urine UA 0.2 E.U./dL (0.2)
[2020-10-10 21:03] LABS: Bacteria Urine Occasional (0-1); Culture Indicated Urine Cult Not Indicated; Mucus Urine 1+ (Negative); Squamous Epithelial Cell Urine 5-10 /HPF (0-5/HPF); WBC Urine 1-5/HPF (0-5/HPF)
== END ==
PROVIDERS: PCP Nurse Practitioner Family; Visit Provider Physician Assistant
DX: R39.89 Other symptoms and signs involving the genitourinary system (principal)
CPT/HCPCS: 81001

== ENCOUNTER → 2020-10-24 07:59 | Outpatient (ROUT) | payer OTHER, SELFPAY ==
[2020-10-24 08:39] LABS: Hematocrit 39.3 % (36-46); Hemoglobin 12.8 g/dL (12.0-16.0); Mean Corpuscular HGB Conc 32.5 % (30-36); Mean Corpuscular Hemoglobin 29.8 PG (26-34); Mean Corpuscular Volume 91.7 fL (80-100); Platelet Count 231 X10^3/uL (150-400); Red Blood Cell Count 4.28 X10^6/uL (4.0-5.2); White Blood Cell Count 7.4 X10^3/uL (4.5-11.0)
[2020-10-24 08:59] LABS: Alanine Aminotransferase 20 IU/L (<35); Albumin 3.3 g/dL (3.5-5.0); Albumin Globulin Ratio 1.1 (1.0-2.8); Alkaline Phosphatase 74 U/L (38-126); Aspartate Aminotransferase 22 IU/L (14-36); BUN Creatinine Ratio 18.1 (6-22); Bilirubin Total 0.2 mg/dL (0.2-1.3); Blood Urea Nitrogen 15 mg/dL (7-17); Carbon Dioxide 27 mmol/L (22-32); Chloride 107 mmol/L (98-107); Cholesterol 198 mg/dL (140-199); Estimated Glomerular Filt Rate > 60.0 mL/min (>60); Globulin 2.9 g/dL (1.7-4.1); Glucose 100 mg/dL (80-110); HDL Cholesterol 30 mg/dL (40-60); HEMOLYSIS < 15 (0-50); LDL Cholesterol Calculated 127 mg/dL (<100); Sodium 140 mmol/L (137-145); Total Protein 6.2 g/dL (6.3-8.2); Triglycerides 206 mg/dL (35-150)
[2020-10-24 09:29] LABS: TSH w/ Reflex to FT4 5.46 uIU/mL (0.47-4.68)
[2020-10-24 09:45] LABS: Vitamin B12 > 1000 pg/mL (239-931)
[2020-10-24 11:02] LABS: Free T4, Direct Thyroxine 1.05 ng/dL (0.78-2.19)
== END ==
PROVIDERS: PCP Nurse Practitioner Family; Visit Provider Nurse Practitioner Family
DX: E78.2 Mixed hyperlipidemia (principal); G35 Multiple sclerosis; F02.80 Dementia in other diseases classified elsewhere, unspecified severity, without behavioral disturbance, psychotic disturbance, mood disturbance, and anxiety; Z00.00 Encounter for general adult medical examination without abnormal findings; R79.89 Other specified abnormal findings of blood chemistry; E53.9 Vitamin B deficiency, unspecified
CPT/HCPCS: 36415; 80053; 80061; 82607; 84439; 84443; 85027

== ENCOUNTER → 2020-10-27 13:50 | Outpatient (ROUT) | payer OTHER, SELFPAY ==
[2020-10-27 13:52] LABS: Bacteria Urine None Seen
[2020-10-27 13:55] LABS: Appearance Urine UA CLOUDY; Bilirubin Urine UA NEGATIVE (NEGATIVE); Color Urine UA YELLOW; Glucose Urine UA NEGATIVE (Negative); Ketones Urine UA NEGATIVE (NEGATIVE); Leukocyte Esterase Urine UA 3+ (NEGATIVE); Nitrite Urine UA NEGATIVE (Negative); Occult Blood Urine UA 1+ (Negative); Protein Urine UA 1+ (Negative); Urobilinogen Urine UA 0.2 E.U./dL (0.2)
[2020-10-27 14:05] LABS: RBC Urine 1-5/HPF (0-5/HPF)
[2020-10-27 14:06] LABS: Culture Indicated Urine Cult Not Indicated; Squamous Epithelial Cell Urine 10-30 /HPF (0-5/HPF); WBC Urine 30-100/HPF (0-5/HPF)
== END ==
PROVIDERS: PCP Nurse Practitioner Family; Visit Provider Nurse Practitioner Family
DX: R41.0 Disorientation, unspecified (principal); R53.1 Weakness; N39.0 Urinary tract infection, site not specified
CPT/HCPCS: 81001

== ENCOUNTER 2021-04-11 16:00 | Outpatient (RCR) | payer OTHER, SELFPAY ==
--- NOTE | 2020-01-02 17:30 | PT.OPPOC ---
Physical, Occupational & Speech Therapy At [facility] Current Diagnoses Multiple sclerosis (01/02/20) Pain in left knee (01/02/20) Pain in left ankle and joints of left foot (01/02/20) Weakness (01/02/20) Other fatigue (01/02/20) Visit Care Team Role Provider Type JJ Escudero Attending Provider Advanced Truck Repair Service Estimator Primary Care Provider Referring Provider Specialty: Family Practice Address: [address] [place] [address], [id number] Email: [email or web address] Plan Of Care PT-OP-T Assessment and Plan Start: 01/02/20 17:36 Freq: Status: Active Protocol: Document 01/02/20 16:45 DCW (Rec: 01/03/20 09:43 DCW [id number]) Physical Therapy Assessment Rehab Potential Rehabilitation Potential Fair Evaluation Complexity Number of Personal Factors/Comorbidities 3 or More Number of Body Systems Impaired 4 or More Clinical Presentation at Evaluation Unstable Impairments Impairments Activity Tolerance,Balance, Functional Activities, Functional Mobility,Gait,Pain, Posture,ROM,Soft Tissue Mobility,Strength,Transfers Goals Four Impairment Multiple falls at [facility] Goal (LTG) Pt to report no falls over the course of two months LTG Duration 03/04/20 Three Impairment Transfers It Operations Manager Goal (LTG) Pt to perform stand-pivot transfer CGA with FWW LTG Duration 03/04/20 Two Impairment Pt unable to tolerate standing for more than 10 seconds [facility] Goal (LTG) Pt to stand using FWW /c Min Ax1 for 90 seconds LTG Duration 03/04/20 One Impairment LE weakness It Operations Manager Goal (LTG) Ankle and knee MMT to to 3+/5 bilaterally Hip MMT to 4/5 bilaterally LTG Duration 03/04/20 Assessment Summary Assessment Pt presented for a highly complex physical therapy evaluation. PT is well known to this clinic, and has been treated on and off here for a number of years secondary to weakness and deconditioning due to MS. Pt has declined in function since her most recent PT session ~4 months ago, due to both a substantial decline in activity level secondary to Covid-19 lockdown, as well as a recent fall, which resulted in significant left knee pain. Pt unable to bear weight through her left leg for any amount of time due to pain, and has a very difficult time with transfers. Pt displays decreased LE strength . Pt's left knee tests positive for medial laxity, which may be indicative of an MCL sprain or tear, and would recommend an MRI for further diagnosis. Pt has already obtained a referral for an Ortho consult, and is hoping to get scheduled soon. Physical Therapy should focus on improving functional mobility, increasing safety by decreasing falls risk, improving strength, and improving activity tolerance. Physical Therapy Plan Frequency and Duration Frequency of Treatment 1x/Week Duration of Treatment 12 weeks Plan of Care Start Date 01/02/20 Plan of Care End Date 03/26/20 Therapeutic Interventions Therapeutic Interventions Aquatic Therapy,Balance Training,Coordination Training ,Gait Training,Home Exercise Program,Joint Mobilizations, Manual Therapy,Neuromuscular Re-education,Patient/Caregiver Education,Self-Care/Home Management,Soft Tissue Mobilization,Therapeutic Activities,Therapeutic Exercises,Wheelchair Management Next Visit Focus/Plan Next Note Type Treatment Note Next Visit Plan LE strengthening, transfer training, increased activity tolerance Plan of Care Dates Plan of Care Start Date 01/02/20 Plan of Care End Date 03/26/20 Electronically Signed by: Daryl Robertson, PT 01/03/20 0912 Please Sign and Return: I have reviewed this Plan of Care and certify that the skilled therapy services above are required to meet the patient?s needs. Physician Signature Date Printed Name and Credentials Clinical Instructor Signature Printed Name and Credentials
--- NOTE | 2020-01-02 17:30 | PT.OIE ---
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) Depression (Chronic Unknown) Frequent UTI (Chronic Unknown) History of fracture (Acute 2018) Hyperlipidemia (Chronic Unknown) Multiple sclerosis (Chronic 1972) Visit Care Team Role Provider Type JJ Escudero Attending Provider Advanced Potash Flaker Primary Care Provider Referring Provider Specialty: Family Practice Address: [address] [place] [address], [facility] Email: [email or web address] Physical Therapy Initial Evaluation PT-OP-A Visit Information Start: 01/02/20 17:36 Freq: Status: Active Protocol: Document 01/02/20 16:45 DCW (Rec: 01/02/20 18:00 DC [id number]) Out-Patient Physical Therapy Visit Information Visit Information Visit Type Initial Evaluation Visit Start Time 16:45 Visit Stop Time 17:30 Total Visit Minutes 45 Visit Number 1 Number of CONSTRUCTION PROJECT ENGINEER Visits 0 Evaluation Information Evaluation Date 01/02/20 PT-OP-B Current Condition Start: 01/02/20 17:36 Freq: Status: Active Protocol: Document 01/02/20 16:45 DCW (Rec: 01/02/20 18:00 DC [id number]) Current Condition History of Current Condition Onset Date Multi-year history Current Complaints MS, fatigue, weakness, L knee pain, L ankle pain History of Current Condition Pt is a 64 year old female with a long-standing history of Multiple Sclerosis. Pt currently mobilizes in her manual wheelchair, and lives at a local care center. Pt has a long-standing history of Physical Therapy off and on at this facility over the past six years, and was working with PT on ambulation, strengthening, and transfers prior to the Covid-19 shut- down, but pt was discharged after her care facility had a mandatory shut-down, and pt was unable to attend physical therapy for ~3 months. Over this time, pt unfortunately spent most of her time lying in bed, which got even worse after she suffered multiple falls when trying to transfer, resulting in a sore left knee and ankle, and an overall refusal to do anything out of bed. Pt reports extreme pain when doing anything in standing, and she feels she has gotten substantially weaker since her last PT session. Pt's sister and [id number] also attended her session today, and report they are trying to get her in for an Ortho consult, and just left a message hoping to schedule an appointment earlier today. Prior Treatments and Tests Prior history of PT Knee x-ray: IMPRESSION: Moderate medial compartment degenerative knee joint osteoarthritis, no fracture found. If unusual symptoms persist followup by MR or delayed plain film imaging may be warranted. per Chauncey Dia M.D. on 12/01/2019 Ankle x-ray: IMPRESSION: No acute trauma found. Exostosis and chronic appearing accessory ossicle or old avulsion fragment as noted. per Chauncey Dia M.D. on Future Testing and Treatments Planned Possible MRI, Ortho consult Treatment Goals Patient/Caregiver Goals Pt wants to transfer more safely PT-OP-C Subjective Start: 01/02/20 17:36 Freq: Status: Active Protocol: Document 01/02/20 16:45 DCW (Rec: 01/02/20 18:00 DCW [id number]) OP-PT Subjective Patient Comments Patient Comments My knee really hurts with any standing. Patient Reported Progress Worse PT-OP-F Manual Assessment Start: 01/02/20 17:36 Freq: Status: Active Protocol: Document 01/02/20 16:45 DCW (Rec: 01/02/20 18:00 DCW [id number]) Manual Assessments Joint Mobility Assessment Joint Mobility Assessment Left knee laxity and pain with valgus force PT-OP-G Mobility & Gait Start: 01/02/20 17:36 Freq: Status: Active Protocol: Document 01/02/20 16:45 DCW (Rec: 01/02/20 18:00 DCW [id number]) OP Mobility Evaluation Transfers Sit to Stand Mod A x1, pt unable to fully extend knees to help support her weight, requires verbal cues for hand placement OP Gait Assessment Factors Limiting Gait Function Factors Limiting Gait Function Abnormal Tonal Influences, Decreased Activity Tolerance, Decreased Strength,Difficulty Following Directions, Incoordination,Limited Range of Motion,Pain,Poor Balance, Poor Safety Awareness Comments Gait Comments Pt barely able to stand at todays evaluation with Mod Ax1 and FWW, unable to attempt gait due to severe knee pain and weakness. PT-OP-L Special Tests Start: 01/02/20 17:36 Freq: Status: Active Protocol: Document 01/02/20 16:45 DCW (Rec: 01/02/20 18:00 DCW [id number]) Special Tests Knee Special Tests Kin Test Test Results Positive left Comments Performed in sitting Posterior Draw Test Results Negative Anterior Draw Test Results Negative Varus- 25 Degrees Test Results Negative Varus- 0 Degrees Test Results Negative Valgus- 25 Degrees Test Results Positive left Valgus- 0 Degrees Test Results Positive left PT-OP-M Strength Start: 01/02/20 17:36 Freq: Status: Active Protocol: Document 01/02/20 16:45 DCW (Rec: 01/02/20 18:00 DCW [id number]) Hip Strength Hip Manual Muscle Testing Right Flexion (L2) 4 Good Abduction 4 Good Adduction 4 Good Left Flexion (L2) 4- Good- Abduction 3+ Fair+ Adduction 4- Good- Knee Strength Knee Manual Muscle Testing Right Flexion (S2) 4+ Good+ Extension (L3) 4+ Good+ Left Flexion (S2) 3- Fair- Extension (L3) 2+ Poor+ Ankle/Foot Strength Ankle and Foot Manual Muscle Testing Right Dorsiflexion (L4) 4- Good- Plantarflexion (S1) 3- Fair- Inversion 4 Good Eversion (S1) 4 Good Left Dorsiflexion (L4) 4- Good- Plantarflexion (S1) 3- Fair- Inversion 3- Fair- Eversion (S1) 3- Fair- PT-OP-T Assessment and Plan Start: 01/02/20 17:36 Freq: Status: Active Protocol: Document 01/02/20 16:45 DCW (Rec: 01/03/20 09:43 DCW [id number]) Physical Therapy Assessment Rehab Potential Rehabilitation Potential Fair Evaluation Complexity Number of Personal Factors/Comorbidities 3 or More Number of Body Systems Impaired 4 or More Clinical Presentation at Evaluation Unstable Impairments Impairments Activity Tolerance,Balance, Functional Activities, Functional Mobility,Gait,Pain, Posture,ROM,Soft Tissue Mobility,Strength,Transfers Goals Four Impairment Multiple falls at care center Public Employment Mediator Goal (LTG) Pt to report no falls over the course of two months LTG Duration 03/04/20 Three Impairment Transfers Public Employment Mediator Goal (LTG) Pt to perform stand-pivot transfer CGA with FWW LTG Duration 03/04/20 Two Impairment Pt unable to tolerate standing for more than 10 seconds Intermediate Goal (LTG) Pt to stand using FWW /c Min Ax1 for 90 seconds LTG Duration 03/04/20 One Impairment LE weakness Intermediate Goal (LTG) Ankle and knee MMT to to 3+/5 bilaterally Hip MMT to 4/5 bilaterally LTG Duration 03/04/20 Assessment Summary Assessment Pt presented for a highly complex physical therapy evaluation. PT is well known to this clinic, and has been treated on and off here for a number of years secondary to weakness and deconditioning due to MS. Pt has declined in function since her most recent PT session ~4 months ago, due to both a substantial decline in activity level secondary to Covid-19 lockdown, as well as a recent fall, which resulted in significant left knee pain. Pt unable to bear weight through her left leg for any amount of time due to pain, and has a very difficult time with transfers. Pt displays decreased LE strength . Pt's left knee tests positive for medial laxity, which may be indicative of an MCL sprain or tear, and would recommend an MRI for further diagnosis. Pt has already obtained a referral for an Ortho consult, and is hoping to get scheduled soon. Physical Therapy should focus on improving functional mobility, increasing safety by decreasing falls risk, improving strength, and improving activity tolerance. Physical Therapy Plan Frequency and Duration Frequency of Treatment 1x/Week Duration of Treatment 12 weeks Plan of Care Start Date 01/02/20 Plan of Care End Date 03/26/20 Therapeutic Interventions Therapeutic Interventions Aquatic Therapy,Balance Training,Coordination Training ,Gait Training,Home Exercise Program,Joint Mobilizations, Manual Therapy,Neuromuscular Re-education,Patient/Caregiver Education,Self-Care/Home Management,Soft Tissue Mobilization,Therapeutic Activities,Therapeutic Exercises,Wheelchair Management Next Visit Focus/Plan Next Note Type Treatment Note Next Visit Plan LE strengthening, transfer training, increased activity tolerance
--- NOTE | 2020-01-09 17:52 | PT.OTN ---
Current Diagnoses Multiple sclerosis (01/09/20) Pain in left knee (01/09/20) Pain in left ankle and joints of left foot (01/09/20) Weakness (01/09/20) Other fatigue (01/09/20) Physical Therapy Treatment Note PT-OP-A Visit Information Start: 01/02/20 17:36 Freq: Status: Active Protocol: Document 01/09/20 16:05 DCW (Rec: 01/09/20 17:52 DCW [id number]) Out-Patient Physical Therapy Visit Information Visit Information Visit Type Treatment Note Visit Start Time 16:05 Visit Stop Time 16:45 Total Visit Minutes 40 Visit Number 2 Number of MOLDER FOAM RUBBER Visits 0 Evaluation Information Evaluation Date 01/02/20 PT-OP-B Current Condition Start: 01/02/20 17:36 Freq: Status: Active Protocol: Document 01/02/20 16:45 DCW (Rec: 01/02/20 18:00 DCW [id number]) Current Condition History of Current Condition Onset Date Multi-year history Current Complaints MS, fatigue, weakness, L knee pain, L ankle pain History of Current Condition Pt is a 64 year old female with a long-standing history of Multiple Sclerosis. Pt currently mobilizes in her manual wheelchair, and lives at a local care center. Pt has a long-standing history of Physical Therapy off and on at this facility over the past six years, and was working with PT on ambulation, strengthening, and transfers prior to the Covid-19 shut- down, but pt was discharged after her care facility had a mandatory shut-down, and pt was unable to attend physical therapy for ~3 months. Over this time, pt unfortunately spent most of her time lying in bed, which got even worse after she suffered multiple falls when trying to transfer, resulting in a sore left knee and ankle, and an overall refusal to do anything out of bed. Pt reports extreme pain when doing anything in standing, and she feels she has gotten substantially weaker since her last PT session. Pt's sister and [id number] also attended her session today, and report they are trying to get her in for an Ortho consult, and just left a message hoping to schedule an appointment earlier today. Prior Treatments and Tests Prior history of PT Knee x-ray: IMPRESSION: Moderate medial compartment degenerative knee joint osteoarthritis, no fracture found. If unusual symptoms persist followup by MR or delayed plain film imaging may be warranted. per Chauncey Dia M.D. on 12/01/2019 Ankle x-ray: IMPRESSION: No acute trauma found. Exostosis and chronic appearing accessory ossicle or old avulsion fragment as noted. per Chauncey Dia M.D. on Future Testing and Treatments Planned Possible MRI, Ortho consult Treatment Goals Patient/Caregiver Goals Pt wants to transfer more safely PT-OP-C Subjective Start: 01/02/20 17:36 Freq: Status: Active Protocol: Document 01/09/20 16:05 DCW (Rec: 01/09/20 17:52 DCW [id number]) OP-PT Subjective Patient Comments Patient Comments Pt notes her knee is still hurting a little, but not as bad as last week. Patient Reported Progress Improving PT-OP-F Manual Assessment Start: 01/02/20 17:36 Freq: Status: Active Protocol: Document 01/02/20 16:45 DCW (Rec: 01/02/20 18:00 DCW [id number]) Manual Assessments Joint Mobility Assessment Joint Mobility Assessment Left knee laxity and pain with valgus force PT-OP-G Mobility & Gait Start: 01/02/20 17:36 Freq: Status: Active Protocol: Document 01/02/20 16:45 DCW (Rec: 01/02/20 18:00 DCW [id number]) OP Mobility Evaluation Transfers Sit to Stand Mod A x1, pt unable to fully extend knees to help support her weight, requires verbal cues for hand placement OP Gait Assessment Factors Limiting Gait Function Factors Limiting Gait Function Abnormal Tonal Influences, Decreased Activity Tolerance, Decreased Strength,Difficulty Following Directions, Incoordination,Limited Range of Motion,Pain,Poor Balance, Poor Safety Awareness Comments Gait Comments Pt barely able to stand at todays evaluation with Mod Ax1 and FWW, unable to attempt gait due to severe knee pain and weakness. PT-OP-L Special Tests Start: 01/02/20 17:36 Freq: Status: Active Protocol: Document 01/02/20 16:45 DCW (Rec: 01/02/20 18:00 DCW [id number]) Special Tests Knee Special Tests Kin Test Test Results Positive left Comments Performed in sitting Posterior Draw Test Results Negative Anterior Draw Test Results Negative Varus- 25 Degrees Test Results Negative Varus- 0 Degrees Test Results Negative Valgus- 25 Degrees Test Results Positive left Valgus- 0 Degrees Test Results Positive left PT-OP-M Strength Start: 01/02/20 17:36 Freq: Status: Active Protocol: Document 01/02/20 16:45 DCW (Rec: 01/02/20 18:00 DCW [id number]) Hip Strength Hip Manual Muscle Testing Right Flexion (L2) 4 Good Abduction 4 Good Adduction 4 Good Left Flexion (L2) 4- Good- Abduction 3+ Fair+ Adduction 4- Good- Knee Strength Knee Manual Muscle Testing Right Flexion (S2) 4+ Good+ Extension (L3) 4+ Good+ Left Flexion (S2) 3- Fair- Extension (L3) 2+ Poor+ Ankle/Foot Strength Ankle and Foot Manual Muscle Testing Right Dorsiflexion (L4) 4- Good- Plantarflexion (S1) 3- Fair- Inversion 4 Good Eversion (S1) 4 Good Left Dorsiflexion (L4) 4- Good- Plantarflexion (S1) 3- Fair- Inversion 3- Fair- Eversion (S1) 3- Fair- PT-OP-Q Treatments Start: 01/02/20 17:36 Freq: Status: Active Protocol: Document 01/09/20 16:05 DCW (Rec: 01/09/20 17:52 [facility] [id number]) Cardio Equipment Upper Body Ergometer (UBE) Duration (Minutes) 5 Seat Position in W/C Height 2.5 Therapeutic Exercises Sitting Exercises 7 Sitting Exercise Name Overhead Press Side bilateral Resistance 3# 6 Sitting Exercise Name Biceps Curls Side bilateral Resistance 3# 5 Sitting Exercise Name Rows Side bilateral Resistance Lv 2 Equipment Used T-band 4 Sitting Exercise Name Shoulder Extension Side bilateral Resistance Lv 2 Equipment Used T-band 3 Sitting Exercise Name HS Curls Side bilateral Resistance Lv 2 Equipment Used T-band 2 Sitting Exercise Name Marching Side bilateral Resistance 4# 1 Sitting Exercise Name LAQ Side bilateral Resistance 4# Standing Exercises 1 Standing Exercise Name Sit<->Stand Equipment Used // bars Reps/Minutes x10 PT-OP-T Assessment and Plan Start: 01/02/20 17:36 Freq: Status: Active Protocol: Document 01/09/20 16:05 DCW (Rec: 01/09/20 17:52 [facility] [id number]) Physical Therapy Assessment Impairments Impairments Activity Tolerance,Balance, Functional Activities, Functional Mobility,Gait,Pain, Posture,ROM,Soft Tissue Mobility,Strength,Transfers Goals Four Impairment Multiple falls at care center It Compliance Manager Goal (LTG) Pt to report no falls over the course of two months LTG Duration 03/04/20 Three Impairment Transfers It Compliance Manager Goal (LTG) Pt to perform stand-pivot transfer CGA with FWW LTG Duration 03/04/20 Two Impairment Pt unable to tolerate standing for more than 10 seconds Long-Term Goal (LTG) Pt to stand using FWW /c Min Ax1 for 90 seconds LTG Duration 03/04/20 One Impairment LE weakness Long-Term Goal (LTG) Ankle and knee MMT to to 3+/5 bilaterally Hip MMT to 4/5 bilaterally LTG Duration 03/04/20 Assessment Summary Assessment Pt's sister brought an OTC knee brace today, which appeared to help with knee stability and enabled pt to perform sit<->stands at // bars with less knee pain. Pt fatigues easily, and has clearly lost strength and activity tolerance over extended lay-off secondary to Covid-19 closures. Physical Therapy Plan Frequency and Duration Frequency of Treatment 1x/Week Duration of Treatment 12 weeks Plan of Care Start Date 01/02/20 Plan of Care End Date 03/26/20 Therapeutic Interventions Therapeutic Interventions Aquatic Therapy,Balance Training,Coordination Training ,Gait Training,Home Exercise Program,Joint Mobilizations, Manual Therapy,Neuromuscular Re-education,Patient/Caregiver Education,Self-Care/Home Management,Soft Tissue Mobilization,Therapeutic Activities,Therapeutic Exercises,Wheelchair Management Next Visit Focus/Plan Next Note Type Treatment Note Next Visit Plan LE strengthening, transfer training, increased activity tolerance
--- NOTE | 2020-01-17 17:37 | PT.OTN ---
Current Diagnoses Multiple sclerosis (01/17/20) Pain in left knee (01/17/20) Pain in left ankle and joints of left foot (01/17/20) Weakness (01/17/20) Other fatigue (01/17/20) Physical Therapy Treatment Note PT-OP-A Visit Information Start: 01/02/20 17:36 Freq: Status: Active Protocol: Document 01/17/20 16:45 DCW (Rec: 01/17/20 17:36 DCW [id number]) Out-Patient Physical Therapy Visit Information Visit Information Visit Type Treatment Note Visit Start Time 16:45 Visit Stop Time 17:30 Total Visit Minutes 45 Visit Number 3 Number of TORPEDO SHOOTER Visits 0 Evaluation Information Evaluation Date 01/02/20 PT-OP-B Current Condition Start: 01/02/20 17:36 Freq: Status: Active Protocol: Document 01/02/20 16:45 DCW (Rec: 01/02/20 18:00 DCW [id number]) Current Condition History of Current Condition Onset Date Multi-year history Current Complaints MS, fatigue, weakness, L knee pain, L ankle pain History of Current Condition Pt is a 64 year old female with a long-standing history of Multiple Sclerosis. Pt currently mobilizes in her manual wheelchair, and lives at a local care center. Pt has a long-standing history of Physical Therapy off and on at this facility over the past six years, and was working with PT on ambulation, strengthening, and transfers prior to the Covid-19 shut- down, but pt was discharged after her care facility had a mandatory shut-down, and pt was unable to attend physical therapy for ~3 months. Over this time, pt unfortunately spent most of her time lying in bed, which got even worse after she suffered multiple falls when trying to transfer, resulting in a sore left knee and ankle, and an overall refusal to do anything out of bed. Pt reports extreme pain when doing anything in standing, and she feels she has gotten substantially weaker since her last PT session. Pt's sister and [id number] also attended her session today, and report they are trying to get her in for an Ortho consult, and just left a message hoping to schedule an appointment earlier today. Prior Treatments and Tests Prior history of PT Knee x-ray: IMPRESSION: Moderate medial compartment degenerative knee joint osteoarthritis, no fracture found. If unusual symptoms persist followup by MR or delayed plain film imaging may be warranted. per Chauncey Dia M.D. on 12/01/2019 Ankle x-ray: IMPRESSION: No acute trauma found. Exostosis and chronic appearing accessory ossicle or old avulsion fragment as noted. per Chauncey Dia M.D. on Future Testing and Treatments Planned Possible MRI, Ortho consult Treatment Goals Patient/Caregiver Goals Pt wants to transfer more safely PT-OP-C Subjective Start: 01/02/20 17:36 Freq: Status: Active Protocol: Document 01/17/20 16:45 DCW (Rec: 01/17/20 17:36 DCW [id number]) OP-PT Subjective Patient Comments Patient Comments Pt reports she had her ortho consult, they do not feel there is any chronic injury to her knee, and to just continue with this PT, as it is exactly what needs to be done. PT-OP-F Manual Assessment Start: 01/02/20 17:36 Freq: Status: Active Protocol: Document 01/02/20 16:45 DCW (Rec: 01/02/20 18:00 DCW [id number]) Manual Assessments Joint Mobility Assessment Joint Mobility Assessment Left knee laxity and pain with valgus force PT-OP-G Mobility & Gait Start: 01/02/20 17:36 Freq: Status: Active Protocol: Document 01/02/20 16:45 DCW (Rec: 01/02/20 18:00 DCW [id number]) OP Mobility Evaluation Transfers Sit to Stand Mod A x1, pt unable to fully extend knees to help support her weight, requires verbal cues for hand placement OP Gait Assessment Factors Limiting Gait Function Factors Limiting Gait Function Abnormal Tonal Influences, Decreased Activity Tolerance, Decreased Strength,Difficulty Following Directions, Incoordination,Limited Range of Motion,Pain,Poor Balance, Poor Safety Awareness Comments Gait Comments Pt barely able to stand at todays evaluation with Mod Ax1 and FWW, unable to attempt gait due to severe knee pain and weakness. PT-OP-L Special Tests Start: 01/02/20 17:36 Freq: Status: Active Protocol: Document 01/02/20 16:45 DCW (Rec: 01/02/20 18:00 DCW [id number]) Special Tests Knee Special Tests Kin Test Test Results Positive left Comments Performed in sitting Posterior Draw Test Results Negative Anterior Draw Test Results Negative Varus- 25 Degrees Test Results Negative Varus- 0 Degrees Test Results Negative Valgus- 25 Degrees Test Results Positive left Valgus- 0 Degrees Test Results Positive left PT-OP-M Strength Start: 01/02/20 17:36 Freq: Status: Active Protocol: Document 01/02/20 16:45 DCW (Rec: 01/02/20 18:00 DCW [id number]) Hip Strength Hip Manual Muscle Testing Right Flexion (L2) 4 Good Abduction 4 Good Adduction 4 Good Left Flexion (L2) 4- Good- Abduction 3+ Fair+ Adduction 4- Good- Knee Strength Knee Manual Muscle Testing Right Flexion (S2) 4+ Good+ Extension (L3) 4+ Good+ Left Flexion (S2) 3- Fair- Extension (L3) 2+ Poor+ Ankle/Foot Strength Ankle and Foot Manual Muscle Testing Right Dorsiflexion (L4) 4- Good- Plantarflexion (S1) 3- Fair- Inversion 4 Good Eversion (S1) 4 Good Left Dorsiflexion (L4) 4- Good- Plantarflexion (S1) 3- Fair- Inversion 3- Fair- Eversion (S1) 3- Fair- PT-OP-Q Treatments Start: 01/02/20 17:36 Freq: Status: Active Protocol: Document 01/17/20 16:45 DCW (Rec: 01/17/20 17:36 DCW [id number]) Cardio Equipment Upper Body Ergometer (UBE) Duration (Minutes) 5 Seat Position in W/C Height 2.5 Therapeutic Exercises Sitting Exercises 7 Sitting Exercise Name Overhead Press Side bilateral Resistance 3# 6 Sitting Exercise Name Biceps Curls Side bilateral Resistance 3# 5 Sitting Exercise Name Rows Side bilateral Resistance Lv 2 Equipment Used T-band 4 Sitting Exercise Name Shoulder Extension Side bilateral Resistance Lv 2 Equipment Used T-band 3 Sitting Exercise Name HS Curls Side bilateral Resistance Lv 3 Equipment Used T-band 2 Sitting Exercise Name Marching Side bilateral Resistance 4# 1 Sitting Exercise Name LAQ Side bilateral Resistance 4# Standing Exercises 2 Standing Exercise Name Standing tolerance with single UE for support 1 Standing Exercise Name Sit<->Stand Equipment Used // bars Reps/Minutes x10 PT-OP-T Assessment and Plan Start: 01/02/20 17:36 Freq: Status: Active Protocol: Document 01/17/20 16:45 DCLesli (Rec: 01/17/20 17:36 DCW [id number]) Physical Therapy Assessment Impairments Impairments Activity Tolerance,Balance, Functional Activities, Functional Mobility,Gait,Pain, Posture,ROM,Soft Tissue Mobility,Strength,Transfers Goals Four Impairment Multiple falls at care center Pearl Cutter Goal (LTG) Pt to report no falls over the course of two months LTG Duration 03/04/20 Three Impairment Transfers Snf Goal (LTG) Pt to perform stand-pivot transfer CGA with FWW LTG Duration 03/04/20 Two Impairment Pt unable to tolerate standing for more than 10 seconds Snf Goal (LTG) Pt to stand using FWW /c Min Ax1 for 90 seconds LTG Duration 03/04/20 One Impairment LE weakness Snf Goal (LTG) Ankle and knee MMT to to 3+/5 bilaterally Hip MMT to 4/5 bilaterally LTG Duration 03/04/20 Assessment Summary Assessment Pt knee doing much better today, showing improved LAQ and much easier sit<->stand transfers. Physical Therapy Plan Frequency and Duration Frequency of Treatment 1x/Week Duration of Treatment 12 weeks Plan of Care Start Date 01/02/20 Plan of Care End Date 03/26/20 Therapeutic Interventions Therapeutic Interventions Aquatic Therapy,Balance Training,Coordination Training ,Gait Training,Home Exercise Program,Joint Mobilizations, Manual Therapy,Neuromuscular Re-education,Patient/Caregiver Education,Self-Care/Home Management,Soft Tissue Mobilization,Therapeutic Activities,Therapeutic Exercises,Wheelchair Management Next Visit Focus/Plan Next Note Type Treatment Note Next Visit Plan LE strengthening, transfer training, increased activity tolerance
--- NOTE | 2020-01-23 16:49 | PT.OTN ---
Current Diagnoses Multiple sclerosis (01/23/20) Pain in left knee (01/23/20) Pain in left ankle and joints of left foot (01/23/20) Weakness (01/23/20) Other fatigue (01/23/20) Physical Therapy Treatment Note PT-OP-A Visit Information Start: 01/02/20 17:36 Freq: Status: Active Protocol: Document 01/23/20 16:00 DCW (Rec: 01/23/20 16:49 DCW [id number]) Out-Patient Physical Therapy Visit Information Visit Information Visit Type Treatment Note Visit Start Time 16:00 Visit Stop Time 16:45 Total Visit Minutes 45 Visit Number 4 Number of RN ACLS Visits 0 Evaluation Information Evaluation Date 01/02/20 PT-OP-B Current Condition Start: 01/02/20 17:36 Freq: Status: Active Protocol: Document 01/02/20 16:45 DCW (Rec: 01/02/20 18:00 DCW [id number]) Current Condition History of Current Condition Onset Date Multi-year history Current Complaints MS, fatigue, weakness, L knee pain, L ankle pain History of Current Condition Pt is a 64 year old female with a long-standing history of Multiple Sclerosis. Pt currently mobilizes in her manual wheelchair, and lives at a local care center. Pt has a long-standing history of Physical Therapy off and on at this facility over the past six years, and was working with PT on ambulation, strengthening, and transfers prior to the Covid-19 shut- down, but pt was discharged after her care facility had a mandatory shut-down, and pt was unable to attend physical therapy for ~3 months. Over this time, pt unfortunately spent most of her time lying in bed, which got even worse after she suffered multiple falls when trying to transfer, resulting in a sore left knee and ankle, and an overall refusal to do anything out of bed. Pt reports extreme pain when doing anything in standing, and she feels she has gotten substantially weaker since her last PT session. Pt's sister and [id number] also attended her session today, and report they are trying to get her in for an Ortho consult, and just left a message hoping to schedule an appointment earlier today. Prior Treatments and Tests Prior history of PT Knee x-ray: IMPRESSION: Moderate medial compartment degenerative knee joint osteoarthritis, no fracture found. If unusual symptoms persist followup by MR or delayed plain film imaging may be warranted. per Chauncey Dia M.D. on 12/01/2019 Ankle x-ray: IMPRESSION: No acute trauma found. Exostosis and chronic appearing accessory ossicle or old avulsion fragment as noted. per Chauncey Dia M.D. on Future Testing and Treatments Planned Possible MRI, Ortho consult Treatment Goals Patient/Caregiver Goals Pt wants to transfer more safely PT-OP-C Subjective Start: 01/02/20 17:36 Freq: Status: Active Protocol: Document 01/23/20 16:00 DCW (Rec: 01/23/20 16:49 DCW [id number]) OP-PT Subjective Patient Comments Patient Comments Pt notes she is not doing too well today, reports she is just tired and sore. PT-OP-F Manual Assessment Start: 01/02/20 17:36 Freq: Status: Active Protocol: Document 01/02/20 16:45 DCW (Rec: 01/02/20 18:00 DCW [id number]) Manual Assessments Joint Mobility Assessment Joint Mobility Assessment Left knee laxity and pain with valgus force PT-OP-G Mobility & Gait Start: 01/02/20 17:36 Freq: Status: Active Protocol: Document 01/02/20 16:45 DCW (Rec: 01/02/20 18:00 DCW [id number]) OP Mobility Evaluation Transfers Sit to Stand Mod A x1, pt unable to fully extend knees to help support her weight, requires verbal cues for hand placement OP Gait Assessment Factors Limiting Gait Function Factors Limiting Gait Function Abnormal Tonal Influences, Decreased Activity Tolerance, Decreased Strength,Difficulty Following Directions, Incoordination,Limited Range of Motion,Pain,Poor Balance, Poor Safety Awareness Comments Gait Comments Pt barely able to stand at todays evaluation with Mod Ax1 and FWW, unable to attempt gait due to severe knee pain and weakness. PT-OP-L Special Tests Start: 01/02/20 17:36 Freq: Status: Active Protocol: Document 01/02/20 16:45 DCW (Rec: 01/02/20 18:00 DCW [id number]) Special Tests Knee Special Tests Kin Test Test Results Positive left Comments Performed in sitting Posterior Draw Test Results Negative Anterior Draw Test Results Negative Varus- 25 Degrees Test Results Negative Varus- 0 Degrees Test Results Negative Valgus- 25 Degrees Test Results Positive left Valgus- 0 Degrees Test Results Positive left PT-OP-M Strength Start: 01/02/20 17:36 Freq: Status: Active Protocol: Document 01/02/20 16:45 DCW (Rec: 01/02/20 18:00 DCW [id number]) Hip Strength Hip Manual Muscle Testing Right Flexion (L2) 4 Good Abduction 4 Good Adduction 4 Good Left Flexion (L2) 4- Good- Abduction 3+ Fair+ Adduction 4- Good- Knee Strength Knee Manual Muscle Testing Right Flexion (S2) 4+ Good+ Extension (L3) 4+ Good+ Left Flexion (S2) 3- Fair- Extension (L3) 2+ Poor+ Ankle/Foot Strength Ankle and Foot Manual Muscle Testing Right Dorsiflexion (L4) 4- Good- Plantarflexion (S1) 3- Fair- Inversion 4 Good Eversion (S1) 4 Good Left Dorsiflexion (L4) 4- Good- Plantarflexion (S1) 3- Fair- Inversion 3- Fair- Eversion (S1) 3- Fair- PT-OP-Q Treatments Start: 01/02/20 17:36 Freq: Status: Active Protocol: Document 01/23/20 16:00 DCW (Rec: 01/23/20 16:49 DCW [id number]) Cardio Equipment Upper Body Ergometer (UBE) Duration (Minutes) 5 Seat Position in W/C Height 2.5 Therapeutic Exercises Sitting Exercises 8 Sitting Exercise Name Balloon Volley Resistance 2# 7 Sitting Exercise Name Overhead Press Side bilateral Resistance 4# Equipment Used PVC 6 Sitting Exercise Name Biceps Curls Side bilateral Resistance 4# Equipment Used PVC 5 Sitting Exercise Name Rows Side bilateral Resistance Lv 2 Equipment Used T-band 4 Sitting Exercise Name Shoulder Extension Side bilateral Resistance Lv 2 Equipment Used T-band 2 Sitting Exercise Name Marching Side bilateral Resistance 4# 1 Sitting Exercise Name LAQ Side bilateral Resistance 4# Standing Exercises 1 Standing Exercise Name Sit<->Stand Equipment Used // bars Reps/Minutes x10 PT-OP-T Assessment and Plan Start: 01/02/20 17:36 Freq: Status: Active Protocol: Document 01/23/20 16:00 DCW (Rec: 01/23/20 16:49 DCW [id number]) Physical Therapy Assessment Impairments Impairments Activity Tolerance,Balance, Functional Activities, Functional Mobility,Gait,Pain, Posture,ROM,Soft Tissue Mobility,Strength,Transfers Goals Four Impairment Multiple falls at care center Drying Oven Tender Goal (LTG) Pt to report no falls over the course of two months LTG Duration 03/04/20 Three Impairment Transfers Drying Oven Tender Goal (LTG) Pt to perform stand-pivot transfer CGA with FWW LTG Duration 03/04/20 Two Impairment Pt unable to tolerate standing for more than 10 seconds Drying Oven Tender Goal (LTG) Pt to stand using FWW /c Min Ax1 for 90 seconds LTG Duration 03/04/20 One Impairment LE weakness Drying Oven Tender Goal (LTG) Ankle and knee MMT to to 3+/5 bilaterally Hip MMT to 4/5 bilaterally LTG Duration 03/04/20 Assessment Summary Assessment Pt continues to show improvement with sit<->stand, but is still significantly weaker than she had been prior to Covid-19 shutdown. Physical Therapy Plan Frequency and Duration Frequency of Treatment 1x/Week Duration of Treatment 12 weeks Plan of Care Start Date 01/02/20 Plan of Care End Date 03/26/20 Therapeutic Interventions Therapeutic Interventions Aquatic Therapy,Balance Training,Coordination Training ,Gait Training,Home Exercise Program,Joint Mobilizations, Manual Therapy,Neuromuscular Re-education,Patient/Caregiver Education,Self-Care/Home Management,Soft Tissue Mobilization,Therapeutic Activities,Therapeutic Exercises,Wheelchair Management Next Visit Focus/Plan Next Note Type Treatment Note Next Visit Plan LE strengthening, transfer training, increased activity tolerance
--- NOTE | 2020-01-30 16:45 | PT.OTN ---
Current Diagnoses Multiple sclerosis (01/30/20) Pain in left knee (01/30/20) Pain in left ankle and joints of left foot (01/30/20) Weakness (01/30/20) Other fatigue (01/30/20) Physical Therapy Treatment Note PT-OP-A Visit Information Start: 01/02/20 17:36 Freq: Status: Active Protocol: Document 01/30/20 16:00 DCW (Rec: 01/30/20 16:45 DCW [id number]) Out-Patient Physical Therapy Visit Information Visit Information Visit Type Treatment Note Visit Start Time 16:00 Visit Stop Time 16:45 Total Visit Minutes 45 Visit Number 5 Number of WOOD TYPE CUTTER Visits 0 Evaluation Information Evaluation Date 01/02/20 PT-OP-B Current Condition Start: 01/02/20 17:36 Freq: Status: Active Protocol: Document 01/02/20 16:45 DCW (Rec: 01/02/20 18:00 DCW [id number]) Current Condition History of Current Condition Onset Date Multi-year history Current Complaints MS, fatigue, weakness, L knee pain, L ankle pain History of Current Condition Pt is a 64 year old female with a long-standing history of Multiple Sclerosis. Pt currently mobilizes in her manual wheelchair, and lives at a local care center. Pt has a long-standing history of Physical Therapy off and on at this facility over the past six years, and was working with PT on ambulation, strengthening, and transfers prior to the Covid-19 shut- down, but pt was discharged after her care facility had a mandatory shut-down, and pt was unable to attend physical therapy for ~3 months. Over this time, pt unfortunately spent most of her time lying in bed, which got even worse after she suffered multiple falls when trying to transfer, resulting in a sore left knee and ankle, and an overall refusal to do anything out of bed. Pt reports extreme pain when doing anything in standing, and she feels she has gotten substantially weaker since her last PT session. Pt's sister and [id number] also attended her session today, and report they are trying to get her in for an Ortho consult, and just left a message hoping to schedule an appointment earlier today. Prior Treatments and Tests Prior history of PT Knee x-ray: IMPRESSION: Moderate medial compartment degenerative knee joint osteoarthritis, no fracture found. If unusual symptoms persist followup by MR or delayed plain film imaging may be warranted. per Chauncey Dia M.D. on 12/01/2019 Ankle x-ray: IMPRESSION: No acute trauma found. Exostosis and chronic appearing accessory ossicle or old avulsion fragment as noted. per Chauncey Dia M.D. on Future Testing and Treatments Planned Possible MRI, Ortho consult Treatment Goals Patient/Caregiver Goals Pt wants to transfer more safely PT-OP-C Subjective Start: 01/02/20 17:36 Freq: Status: Active Protocol: Document 01/30/20 16:00 DCW (Rec: 01/30/20 16:45 DCW [id number]) OP-PT Subjective Patient Comments Patient Comments Pt becoming irritated she still needs to wear a mask, reports that it is difficult to breathe. PT-OP-F Manual Assessment Start: 01/02/20 17:36 Freq: Status: Active Protocol: Document 01/02/20 16:45 DCW (Rec: 01/02/20 18:00 DCW [id number]) Manual Assessments Joint Mobility Assessment Joint Mobility Assessment Left knee laxity and pain with valgus force PT-OP-G Mobility & Gait Start: 01/02/20 17:36 Freq: Status: Active Protocol: Document 01/02/20 16:45 DCW (Rec: 01/02/20 18:00 DCW [id number]) OP Mobility Evaluation Transfers Sit to Stand Mod A x1, pt unable to fully extend knees to help support her weight, requires verbal cues for hand placement OP Gait Assessment Factors Limiting Gait Function Factors Limiting Gait Function Abnormal Tonal Influences, Decreased Activity Tolerance, Decreased Strength,Difficulty Following Directions, Incoordination,Limited Range of Motion,Pain,Poor Balance, Poor Safety Awareness Comments Gait Comments Pt barely able to stand at todays evaluation with Mod Ax1 and FWW, unable to attempt gait due to severe knee pain and weakness. PT-OP-L Special Tests Start: 01/02/20 17:36 Freq: Status: Active Protocol: Document 01/02/20 16:45 DCW (Rec: 01/02/20 18:00 DCW [id number]) Special Tests Knee Special Tests Kin Test Test Results Positive left Comments Performed in sitting Posterior Draw Test Results Negative Anterior Draw Test Results Negative Varus- 25 Degrees Test Results Negative Varus- 0 Degrees Test Results Negative Valgus- 25 Degrees Test Results Positive left Valgus- 0 Degrees Test Results Positive left PT-OP-M Strength Start: 01/02/20 17:36 Freq: Status: Active Protocol: Document 01/02/20 16:45 DCW (Rec: 01/02/20 18:00 DCW [id number]) Hip Strength Hip Manual Muscle Testing Right Flexion (L2) 4 Good Abduction 4 Good Adduction 4 Good Left Flexion (L2) 4- Good- Abduction 3+ Fair+ Adduction 4- Good- Knee Strength Knee Manual Muscle Testing Right Flexion (S2) 4+ Good+ Extension (L3) 4+ Good+ Left Flexion (S2) 3- Fair- Extension (L3) 2+ Poor+ Ankle/Foot Strength Ankle and Foot Manual Muscle Testing Right Dorsiflexion (L4) 4- Good- Plantarflexion (S1) 3- Fair- Inversion 4 Good Eversion (S1) 4 Good Left Dorsiflexion (L4) 4- Good- Plantarflexion (S1) 3- Fair- Inversion 3- Fair- Eversion (S1) 3- Fair- PT-OP-Q Treatments Start: 01/02/20 17:36 Freq: Status: Active Protocol: Document 01/30/20 16:00 DCW (Rec: 01/30/20 16:45 DCW [id number]) Cardio Equipment Upper Body Ergometer (UBE) Duration (Minutes) 5 Seat Position in W/C Height 2.5 Therapeutic Exercises Sitting Exercises 9 Sitting Exercise Name Hip Abduction Side bilateral Resistance Lv 3 Equipment Used T-band 8 Sitting Exercise Name Balloon Volley Resistance 2# 7 Sitting Exercise Name Overhead Press Side bilateral Resistance 4# Equipment Used PVC 6 Sitting Exercise Name Biceps Curls Side bilateral Resistance 4# Equipment Used PVC 5 Sitting Exercise Name Rows Side bilateral Resistance Lv 2 Equipment Used T-band 4 Sitting Exercise Name Shoulder Extension Side bilateral Resistance Lv 2 Equipment Used T-band 3 Sitting Exercise Name HS Curls Side bilateral Resistance Lv 3 Equipment Used T-band 2 Sitting Exercise Name Marching Side bilateral Resistance 4# 1 Sitting Exercise Name LAQ Side bilateral Resistance 4# Standing Exercises 1 Standing Exercise Name Sit<->Stand Equipment Used // bars Reps/Minutes x10 PT-OP-T Assessment and Plan Start: 01/02/20 17:36 Freq: Status: Active Protocol: Document 01/30/20 16:00 DCW (Rec: 01/30/20 16:45 DCW [id number]) Physical Therapy Assessment Impairments Impairments Activity Tolerance,Balance, Functional Activities, Functional Mobility,Gait,Pain, Posture,ROM,Soft Tissue Mobility,Strength,Transfers Goals Four Impairment Multiple falls at care center Lead Driver Goal (LTG) Pt to report no falls over the course of two months LTG Duration 03/04/20 Three Impairment Transfers Half-Way Goal (LTG) Pt to perform stand-pivot transfer CGA with FWW LTG Duration 03/04/20 Two Impairment Pt unable to tolerate standing for more than 10 seconds Half-Way Goal (LTG) Pt to stand using FWW /c Min Ax1 for 90 seconds LTG Duration 03/04/20 One Impairment LE weakness Half-Way Goal (LTG) Ankle and knee MMT to to 3+/5 bilaterally Hip MMT to 4/5 bilaterally LTG Duration 03/04/20 Assessment Summary Assessment Pt had a fairly good day today , sit<->stand requiring less PT assistance. Pt still far from PLOF prior to shutdown, unable to perform any stand- pivot transfers yet to equipment, but will hopefully show enough improvement that they can soon be addressed. Physical Therapy Plan Frequency and Duration Frequency of Treatment 1x/Week Duration of Treatment 12 weeks Plan of Care Start Date 01/02/20 Plan of Care End Date 03/26/20 Therapeutic Interventions Therapeutic Interventions Aquatic Therapy,Balance Training,Coordination Training ,Gait Training,Home Exercise Program,Joint Mobilizations, Manual Therapy,Neuromuscular Re-education,Patient/Caregiver Education,Self-Care/Home Management,Soft Tissue Mobilization,Therapeutic Activities,Therapeutic Exercises,Wheelchair Management Next Visit Focus/Plan Next Note Type Treatment Note Next Visit Plan LE strengthening, transfer training, increased activity tolerance
--- NOTE | 2020-02-06 16:47 | PT.OTN ---
Current Diagnoses Multiple sclerosis (02/06/20) Pain in left knee (02/06/20) Pain in left ankle and joints of left foot (02/06/20) Weakness (02/06/20) Other fatigue (02/06/20) Physical Therapy Treatment Note PT-OP-A Visit Information Start: 01/02/20 17:36 Freq: Status: Active Protocol: Document 02/06/20 16:00 DCW (Rec: 02/06/20 16:47 DCW [id number]) Out-Patient Physical Therapy Visit Information Visit Information Visit Type Treatment Note Visit Start Time 16:00 Visit Stop Time 16:45 Total Visit Minutes 45 Visit Number 6 Number of BIZTALK DEVELOPER Visits 0 Evaluation Information Evaluation Date 01/02/20 PT-OP-B Current Condition Start: 01/02/20 17:36 Freq: Status: Active Protocol: Document 01/02/20 16:45 DCW (Rec: 01/02/20 18:00 DCW [id number]) Current Condition History of Current Condition Onset Date Multi-year history Current Complaints MS, fatigue, weakness, L knee pain, L ankle pain History of Current Condition Pt is a 64 year old female with a long-standing history of Multiple Sclerosis. Pt currently mobilizes in her manual wheelchair, and lives at a local care center. Pt has a long-standing history of Physical Therapy off and on at this facility over the past six years, and was working with PT on ambulation, strengthening, and transfers prior to the Covid-19 shut- down, but pt was discharged after her care facility had a mandatory shut-down, and pt was unable to attend physical therapy for ~3 months. Over this time, pt unfortunately spent most of her time lying in bed, which got even worse after she suffered multiple falls when trying to transfer, resulting in a sore left knee and ankle, and an overall refusal to do anything out of bed. Pt reports extreme pain when doing anything in standing, and she feels she has gotten substantially weaker since her last PT session. Pt's sister and [id number] also attended her session today, and report they are trying to get her in for an Ortho consult, and just left a message hoping to schedule an appointment earlier today. Prior Treatments and Tests Prior history of PT Knee x-ray: IMPRESSION: Moderate medial compartment degenerative knee joint osteoarthritis, no fracture found. If unusual symptoms persist followup by MR or delayed plain film imaging may be warranted. per Chauncey Dia M.D. on 12/01/2019 Ankle x-ray: IMPRESSION: No acute trauma found. Exostosis and chronic appearing accessory ossicle or old avulsion fragment as noted. per Chauncey Dia M.D. on Future Testing and Treatments Planned Possible MRI, Ortho consult Treatment Goals Patient/Caregiver Goals Pt wants to transfer more safely PT-OP-C Subjective Start: 01/02/20 17:36 Freq: Status: Active Protocol: Document 02/06/20 16:00 DCW (Rec: 02/06/20 16:47 DCW [id number]) OP-PT Subjective Patient Comments Patient Comments Pt reports she is doing well, but didn't sleep well last night. PT-OP-F Manual Assessment Start: 01/02/20 17:36 Freq: Status: Active Protocol: Document 01/02/20 16:45 DCW (Rec: 01/02/20 18:00 DCW [id number]) Manual Assessments Joint Mobility Assessment Joint Mobility Assessment Left knee laxity and pain with valgus force PT-OP-G Mobility & Gait Start: 01/02/20 17:36 Freq: Status: Active Protocol: Document 01/02/20 16:45 DCW (Rec: 01/02/20 18:00 DCW [id number]) OP Mobility Evaluation Transfers Sit to Stand Mod A x1, pt unable to fully extend knees to help support her weight, requires verbal cues for hand placement OP Gait Assessment Factors Limiting Gait Function Factors Limiting Gait Function Abnormal Tonal Influences, Decreased Activity Tolerance, Decreased Strength,Difficulty Following Directions, Incoordination,Limited Range of Motion,Pain,Poor Balance, Poor Safety Awareness Comments Gait Comments Pt barely able to stand at todays evaluation with Mod Ax1 and FWW, unable to attempt gait due to severe knee pain and weakness. PT-OP-L Special Tests Start: 01/02/20 17:36 Freq: Status: Active Protocol: Document 01/02/20 16:45 DCW (Rec: 01/02/20 18:00 DCW [id number]) Special Tests Knee Special Tests Kin Test Test Results Positive left Comments Performed in sitting Posterior Draw Test Results Negative Anterior Draw Test Results Negative Varus- 25 Degrees Test Results Negative Varus- 0 Degrees Test Results Negative Valgus- 25 Degrees Test Results Positive left Valgus- 0 Degrees Test Results Positive left PT-OP-M Strength Start: 01/02/20 17:36 Freq: Status: Active Protocol: Document 01/02/20 16:45 DCW (Rec: 01/02/20 18:00 DCW [id number]) Hip Strength Hip Manual Muscle Testing Right Flexion (L2) 4 Good Abduction 4 Good Adduction 4 Good Left Flexion (L2) 4- Good- Abduction 3+ Fair+ Adduction 4- Good- Knee Strength Knee Manual Muscle Testing Right Flexion (S2) 4+ Good+ Extension (L3) 4+ Good+ Left Flexion (S2) 3- Fair- Extension (L3) 2+ Poor+ Ankle/Foot Strength Ankle and Foot Manual Muscle Testing Right Dorsiflexion (L4) 4- Good- Plantarflexion (S1) 3- Fair- Inversion 4 Good Eversion (S1) 4 Good Left Dorsiflexion (L4) 4- Good- Plantarflexion (S1) 3- Fair- Inversion 3- Fair- Eversion (S1) 3- Fair- PT-OP-Q Treatments Start: 01/02/20 17:36 Freq: Status: Active Protocol: Document 02/06/20 16:00 DCW (Rec: 02/06/20 16:47 DCW [id number]) Cardio Equipment Upper Body Ergometer (UBE) Duration (Minutes) 6 Seat Position in W/C Height 2.5 Therapeutic Exercises Sitting Exercises 9 Sitting Exercise Name Hip Abduction Side bilateral Resistance Lv 3 Equipment Used T-band 8 Sitting Exercise Name Balloon Volley Resistance 2# 7 Sitting Exercise Name Overhead Press Side bilateral Resistance 4# Equipment Used PVC 6 Sitting Exercise Name Biceps Curls Side bilateral Resistance 4# Equipment Used PVC 3 Sitting Exercise Name HS Curls Side bilateral Resistance Lv 3 Equipment Used T-band 2 Sitting Exercise Name Marching Side bilateral Resistance 4# 1 Sitting Exercise Name LAQ Side bilateral Resistance 4# Standing Exercises 1 Standing Exercise Name Sit<->Stand Equipment Used // bars Reps/Minutes x10 Gait Training Gait Activity 1 Description Pre-gait Fwd/Bkwd weight shifting PT-OP-T Assessment and Plan Start: 01/02/20 17:36 Freq: Status: Active Protocol: Document 02/06/20 16:00 DCW (Rec: 02/06/20 16:47 DCW [id number]) Physical Therapy Assessment Impairments Impairments Activity Tolerance,Balance, Functional Activities, Functional Mobility,Gait,Pain, Posture,ROM,Soft Tissue Mobility,Strength,Transfers Goals Four Impairment Multiple falls at care center Private Secretary Goal (LTG) Pt to report no falls over the course of two months LTG Duration 03/04/20 Three Impairment Transfers Detention Goal (LTG) Pt to perform stand-pivot transfer CGA with FWW LTG Duration 03/04/20 Two Impairment Pt unable to tolerate standing for more than 10 seconds Detention Goal (LTG) Pt to stand using FWW /c Min Ax1 for 90 seconds LTG Duration 03/04/20 One Impairment LE weakness Detention Goal (LTG) Ankle and knee MMT to to 3+/5 bilaterally Hip MMT to 4/5 bilaterally LTG Duration 03/04/20 Assessment Summary Assessment Pt continue to progress with sit<->stand ability, did well with some pre-gait activity. Physical Therapy Plan Frequency and Duration Frequency of Treatment 1x/Week Duration of Treatment 12 weeks Plan of Care Start Date 01/02/20 Plan of Care End Date 03/26/20 Therapeutic Interventions Therapeutic Interventions Aquatic Therapy,Balance Training,Coordination Training ,Gait Training,Home Exercise Program,Joint Mobilizations, Manual Therapy,Neuromuscular Re-education,Patient/Caregiver Education,Self-Care/Home Management,Soft Tissue Mobilization,Therapeutic Activities,Therapeutic Exercises,Wheelchair Management Next Visit Focus/Plan Next Note Type Treatment Note Next Visit Plan LE strengthening, transfer training, increased activity tolerance
--- NOTE | 2020-02-24 12:47 | PT.OTN ---
Current Diagnoses Multiple sclerosis (02/24/20) Pain in left knee (02/24/20) Pain in left ankle and joints of left foot (02/24/20) Weakness (02/24/20) Other fatigue (02/24/20) Physical Therapy Treatment Note PT-OP-A Visit Information Start: 01/02/20 17:36 Freq: Status: Active Protocol: Document 02/24/20 12:00 DCW (Rec: 02/24/20 12:46 DCW [id number]) Out-Patient Physical Therapy Visit Information Visit Information Visit Type Treatment Note Visit Start Time 12:00 Visit Stop Time 12:45 Total Visit Minutes 45 Visit Number 7 Number of MARKETING INFORMATION COORDINATOR Visits 0 Evaluation Information Evaluation Date 01/02/20 PT-OP-B Current Condition Start: 01/02/20 17:36 Freq: Status: Active Protocol: Document 01/02/20 16:45 DCW (Rec: 01/02/20 18:00 DCW [id number]) Current Condition History of Current Condition Onset Date Multi-year history Current Complaints MS, fatigue, weakness, L knee pain, L ankle pain History of Current Condition Pt is a 64 year old female with a long-standing history of Multiple Sclerosis. Pt currently mobilizes in her manual wheelchair, and lives at a local care center. Pt has a long-standing history of Physical Therapy off and on at this facility over the past six years, and was working with PT on ambulation, strengthening, and transfers prior to the Covid-19 shut- down, but pt was discharged after her care facility had a mandatory shut-down, and pt was unable to attend physical therapy for ~3 months. Over this time, pt unfortunately spent most of her time lying in bed, which got even worse after she suffered multiple falls when trying to transfer, resulting in a sore left knee and ankle, and an overall refusal to do anything out of bed. Pt reports extreme pain when doing anything in standing, and she feels she has gotten substantially weaker since her last PT session. Pt's sister and [id number] also attended her session today, and report they are trying to get her in for an Ortho consult, and just left a message hoping to schedule an appointment earlier today. Prior Treatments and Tests Prior history of PT Knee x-ray: IMPRESSION: Moderate medial compartment degenerative knee joint osteoarthritis, no fracture found. If unusual symptoms persist followup by MR or delayed plain film imaging may be warranted. per Chauncey Dia M.D. on 12/01/2019 Ankle x-ray: IMPRESSION: No acute trauma found. Exostosis and chronic appearing accessory ossicle or old avulsion fragment as noted. per Chauncey Dia M.D. on Future Testing and Treatments Planned Possible MRI, Ortho consult Treatment Goals Patient/Caregiver Goals Pt wants to transfer more safely PT-OP-C Subjective Start: 01/02/20 17:36 Freq: Status: Active Protocol: Document 02/24/20 12:00 DCW (Rec: 02/24/20 12:46 DCW [id number]) OP-PT Subjective Patient Comments Patient Comments Pt reports she was sitting in the kitchen so her room could get cleaned, so she was unable to warm her legs up before coming in today. PT-OP-F Manual Assessment Start: 01/02/20 17:36 Freq: Status: Active Protocol: Document 01/02/20 16:45 DCW (Rec: 01/02/20 18:00 DCW [id number]) Manual Assessments Joint Mobility Assessment Joint Mobility Assessment Left knee laxity and pain with valgus force PT-OP-G Mobility & Gait Start: 01/02/20 17:36 Freq: Status: Active Protocol: Document 01/02/20 16:45 DCW (Rec: 01/02/20 18:00 DCW [id number]) OP Mobility Evaluation Transfers Sit to Stand Mod A x1, pt unable to fully extend knees to help support her weight, requires verbal cues for hand placement OP Gait Assessment Factors Limiting Gait Function Factors Limiting Gait Function Abnormal Tonal Influences, Decreased Activity Tolerance, Decreased Strength,Difficulty Following Directions, Incoordination,Limited Range of Motion,Pain,Poor Balance, Poor Safety Awareness Comments Gait Comments Pt barely able to stand at todays evaluation with Mod Ax1 and FWW, unable to attempt gait due to severe knee pain and weakness. PT-OP-L Special Tests Start: 01/02/20 17:36 Freq: Status: Active Protocol: Document 01/02/20 16:45 DCW (Rec: 01/02/20 18:00 DCW [id number]) Special Tests Knee Special Tests Kin Test Test Results Positive left Comments Performed in sitting Posterior Draw Test Results Negative Anterior Draw Test Results Negative Varus- 25 Degrees Test Results Negative Varus- 0 Degrees Test Results Negative Valgus- 25 Degrees Test Results Positive left Valgus- 0 Degrees Test Results Positive left PT-OP-M Strength Start: 01/02/20 17:36 Freq: Status: Active Protocol: Document 01/02/20 16:45 DCW (Rec: 01/02/20 18:00 DCW [id number]) Hip Strength Hip Manual Muscle Testing Right Flexion (L2) 4 Good Abduction 4 Good Adduction 4 Good Left Flexion (L2) 4- Good- Abduction 3+ Fair+ Adduction 4- Good- Knee Strength Knee Manual Muscle Testing Right Flexion (S2) 4+ Good+ Extension (L3) 4+ Good+ Left Flexion (S2) 3- Fair- Extension (L3) 2+ Poor+ Ankle/Foot Strength Ankle and Foot Manual Muscle Testing Right Dorsiflexion (L4) 4- Good- Plantarflexion (S1) 3- Fair- Inversion 4 Good Eversion (S1) 4 Good Left Dorsiflexion (L4) 4- Good- Plantarflexion (S1) 3- Fair- Inversion 3- Fair- Eversion (S1) 3- Fair- PT-OP-Q Treatments Start: 01/02/20 17:36 Freq: Status: Active Protocol: Document 02/24/20 12:00 DCW (Rec: 02/24/20 12:46 DCW [id number]) Cardio Equipment Upper Body Ergometer (UBE) Duration (Minutes) 6 Seat Position in W/C Height 2.5 Therapeutic Exercises Sitting Exercises 8 Sitting Exercise Name Balloon Volley Resistance 2# 7 Sitting Exercise Name Overhead Press Side bilateral Resistance 5# Equipment Used PVC 6 Sitting Exercise Name Biceps Curls Side bilateral Resistance 5# Equipment Used PVC 5 Sitting Exercise Name Rows Side bilateral Resistance Lv 2 Equipment Used T-band 4 Sitting Exercise Name Shoulder Extension Side bilateral Resistance Lv 2 Equipment Used T-band 2 Sitting Exercise Name Marching Side bilateral Resistance 5# 1 Sitting Exercise Name LAQ Side bilateral Resistance 5# Standing Exercises 1 Standing Exercise Name Sit<->Stand Equipment Used // bars Reps/Minutes 3x5 Neuro Re-Education Treatment Coordination Activities 1 Details Cone activities Equipment Cones Speed 10# ankle weight Comments Using feet to knock over cones for coordination training/ neuromuscular re-education PT-OP-T Assessment and Plan Start: 01/02/20 17:36 Freq: Status: Active Protocol: Document 02/24/20 12:00 DCW (Rec: 02/24/20 12:46 DCW [id number]) Physical Therapy Assessment Impairments Impairments Activity Tolerance,Balance, Functional Activities, Functional Mobility,Gait,Pain, Posture,ROM,Soft Tissue Mobility,Strength,Transfers Goals Four Impairment Multiple falls at care center Yard Switcher Goal (LTG) Pt to report no falls over the course of two months LTG Duration 03/04/20 Three Impairment Transfers Prison Goal (LTG) Pt to perform stand-pivot transfer CGA with FWW LTG Duration 03/04/20 Two Impairment Pt unable to tolerate standing for more than 10 seconds Yard Switcher Goal (LTG) Pt to stand using FWW /c Min Ax1 for 90 seconds LTG Duration 03/04/20 One Impairment LE weakness Yard Switcher Goal (LTG) Ankle and knee MMT to to 3+/5 bilaterally Hip MMT to 4/5 bilaterally LTG Duration 03/04/20 Assessment Summary Assessment Pt doing well, continues to display improved sit<->stand and coordination. Continue to work on increasing standing tolerance and pre-gait activity. Physical Therapy Plan Frequency and Duration Frequency of Treatment 1x/Week Duration of Treatment 12 weeks Plan of Care Start Date 01/02/20 Plan of Care End Date 03/26/20 Therapeutic Interventions Therapeutic Interventions Aquatic Therapy,Balance Training,Coordination Training ,Gait Training,Home Exercise Program,Joint Mobilizations, Manual Therapy,Neuromuscular Re-education,Patient/Caregiver Education,Self-Care/Home Management,Soft Tissue Mobilization,Therapeutic Activities,Therapeutic Exercises,Wheelchair Management Next Visit Focus/Plan Next Note Type Treatment Note Next Visit Plan LE strengthening, transfer training, increased activity tolerance
--- NOTE | 2020-02-29 11:18 | PT.OTN ---
Current Diagnoses Multiple sclerosis (02/29/20) Pain in left knee (02/29/20) Pain in left ankle and joints of left foot (02/29/20) Weakness (02/29/20) Other fatigue (02/29/20) Physical Therapy Treatment Note PT-OP-A Visit Information Start: 01/02/20 17:36 Freq: Status: Active Protocol: Document 02/29/20 10:30 DCW (Rec: 02/29/20 11:18 DCW [id number]) Out-Patient Physical Therapy Visit Information Visit Information Visit Type Treatment Note Visit Start Time 10:30 Visit Stop Time 11:15 Total Visit Minutes 45 Visit Number 8 Number of OPERATION MANAGER Visits 0 Evaluation Information Evaluation Date 01/02/20 PT-OP-B Current Condition Start: 01/02/20 17:36 Freq: Status: Active Protocol: Document 01/02/20 16:45 DCW (Rec: 01/02/20 18:00 DCW [id number]) Current Condition History of Current Condition Onset Date Multi-year history Current Complaints MS, fatigue, weakness, L knee pain, L ankle pain History of Current Condition Pt is a 64 year old female with a long-standing history of Multiple Sclerosis. Pt currently mobilizes in her manual wheelchair, and lives at a local care center. Pt has a long-standing history of Physical Therapy off and on at this facility over the past six years, and was working with PT on ambulation, strengthening, and transfers prior to the Covid-19 shut- down, but pt was discharged after her care facility had a mandatory shut-down, and pt was unable to attend physical therapy for ~3 months. Over this time, pt unfortunately spent most of her time lying in bed, which got even worse after she suffered multiple falls when trying to transfer, resulting in a sore left knee and ankle, and an overall refusal to do anything out of bed. Pt reports extreme pain when doing anything in standing, and she feels she has gotten substantially weaker since her last PT session. Pt's sister and [id number] also attended her session today, and report they are trying to get her in for an Ortho consult, and just left a message hoping to schedule an appointment earlier today. Prior Treatments and Tests Prior history of PT Knee x-ray: IMPRESSION: Moderate medial compartment degenerative knee joint osteoarthritis, no fracture found. If unusual symptoms persist followup by MR or delayed plain film imaging may be warranted. per Chauncey Dia M.D. on 12/01/2019 Ankle x-ray: IMPRESSION: No acute trauma found. Exostosis and chronic appearing accessory ossicle or old avulsion fragment as noted. per Chauncey Dia M.D. on Future Testing and Treatments Planned Possible MRI, Ortho consult Treatment Goals Patient/Caregiver Goals Pt wants to transfer more safely PT-OP-C Subjective Start: 01/02/20 17:36 Freq: Status: Active Protocol: Document 02/29/20 10:30 DCW (Rec: 02/29/20 11:18 DCW [id number]) OP-PT Subjective Patient Comments Patient Comments I had to wake up early for this appointment, so I'm not feeling very energetic. PT-OP-F Manual Assessment Start: 01/02/20 17:36 Freq: Status: Active Protocol: Document 01/02/20 16:45 DCW (Rec: 01/02/20 18:00 DCW [id number]) Manual Assessments Joint Mobility Assessment Joint Mobility Assessment Left knee laxity and pain with valgus force PT-OP-G Mobility & Gait Start: 01/02/20 17:36 Freq: Status: Active Protocol: Document 01/02/20 16:45 DCW (Rec: 01/02/20 18:00 DCW [id number]) OP Mobility Evaluation Transfers Sit to Stand Mod A x1, pt unable to fully extend knees to help support her weight, requires verbal cues for hand placement OP Gait Assessment Factors Limiting Gait Function Factors Limiting Gait Function Abnormal Tonal Influences, Decreased Activity Tolerance, Decreased Strength,Difficulty Following Directions, Incoordination,Limited Range of Motion,Pain,Poor Balance, Poor Safety Awareness Comments Gait Comments Pt barely able to stand at todays evaluation with Mod Ax1 and FWW, unable to attempt gait due to severe knee pain and weakness. PT-OP-L Special Tests Start: 01/02/20 17:36 Freq: Status: Active Protocol: Document 01/02/20 16:45 DCW (Rec: 01/02/20 18:00 DCW [id number]) Special Tests Knee Special Tests Kin Test Test Results Positive left Comments Performed in sitting Posterior Draw Test Results Negative Anterior Draw Test Results Negative Varus- 25 Degrees Test Results Negative Varus- 0 Degrees Test Results Negative Valgus- 25 Degrees Test Results Positive left Valgus- 0 Degrees Test Results Positive left PT-OP-M Strength Start: 01/02/20 17:36 Freq: Status: Active Protocol: Document 01/02/20 16:45 DCW (Rec: 01/02/20 18:00 DCW [id number]) Hip Strength Hip Manual Muscle Testing Right Flexion (L2) 4 Good Abduction 4 Good Adduction 4 Good Left Flexion (L2) 4- Good- Abduction 3+ Fair+ Adduction 4- Good- Knee Strength Knee Manual Muscle Testing Right Flexion (S2) 4+ Good+ Extension (L3) 4+ Good+ Left Flexion (S2) 3- Fair- Extension (L3) 2+ Poor+ Ankle/Foot Strength Ankle and Foot Manual Muscle Testing Right Dorsiflexion (L4) 4- Good- Plantarflexion (S1) 3- Fair- Inversion 4 Good Eversion (S1) 4 Good Left Dorsiflexion (L4) 4- Good- Plantarflexion (S1) 3- Fair- Inversion 3- Fair- Eversion (S1) 3- Fair- PT-OP-Q Treatments Start: 01/02/20 17:36 Freq: Status: Active Protocol: Document 02/29/20 10:30 DCW (Rec: 02/29/20 11:18 DCW [id number]) Cardio Equipment Upper Body Ergometer (UBE) Duration (Minutes) 6 Seat Position in W/C Height 2.5 Therapeutic Exercises Sitting Exercises 9 Sitting Exercise Name Hip Abduction Side bilateral Resistance Lv 3 Equipment Used T-band 8 Sitting Exercise Name Balloon Volley Resistance 2# 7 Sitting Exercise Name Overhead Press Side bilateral Resistance 9# Equipment Used PVC 6 Sitting Exercise Name Biceps Curls Side bilateral Resistance 9# Equipment Used PVC 5 Sitting Exercise Name Rows Side bilateral Resistance Lv 2 Equipment Used T-band 3 Sitting Exercise Name HS Curls Side bilateral Resistance Lv 3 Equipment Used T-band 2 Sitting Exercise Name Marching Side bilateral Resistance 5# 1 Sitting Exercise Name LAQ Side bilateral Resistance 5# Standing Exercises 1 Standing Exercise Name Sit<->Stand Equipment Used // bars Reps/Minutes 3x5 Gait Training Gait Activity 1 Description Pre-gait Fwd/Bkwd weight shifting PT-OP-T Assessment and Plan Start: 01/02/20 17:36 Freq: Status: Active Protocol: Document 02/29/20 10:30 DCW (Rec: 02/29/20 11:18 DCW [id number]) Physical Therapy Assessment Impairments Impairments Activity Tolerance,Balance, Functional Activities, Functional Mobility,Gait,Pain, Posture,ROM,Soft Tissue Mobility,Strength,Transfers Goals Four Impairment Multiple falls at care center Flatbed Owner Operator Goal (LTG) Pt to report no falls over the course of two months LTG Duration 03/04/20 Three Impairment Transfers Halfway Goal (LTG) Pt to perform stand-pivot transfer CGA with FWW LTG Duration 03/04/20 Two Impairment Pt unable to tolerate standing for more than 10 seconds Halfway Goal (LTG) Pt to stand using FWW /c Min Ax1 for 90 seconds LTG Duration 03/04/20 One Impairment LE weakness Halfway Goal (LTG) Ankle and knee MMT to to 3+/5 bilaterally Hip MMT to 4/5 bilaterally LTG Duration 03/04/20 Assessment Summary Assessment Despite complaints of fatigue, pt did well today, continues to show improvement in sit to stand, was able to tolerate pre-gait weight-shifting well today. Physical Therapy Plan Frequency and Duration Frequency of Treatment 1x/Week Duration of Treatment 12 weeks Plan of Care Start Date 01/02/20 Plan of Care End Date 03/26/20 Therapeutic Interventions Therapeutic Interventions Aquatic Therapy,Balance Training,Coordination Training ,Gait Training,Home Exercise Program,Joint Mobilizations, Manual Therapy,Neuromuscular Re-education,Patient/Caregiver Education,Self-Care/Home Management,Soft Tissue Mobilization,Therapeutic Activities,Therapeutic Exercises,Wheelchair Management Next Visit Focus/Plan Next Note Type Treatment Note Next Visit Plan LE strengthening, transfer training, increased activity tolerance
--- NOTE | 2020-03-07 11:16 | PT.OTN ---
Current Diagnoses Multiple sclerosis (03/07/20) Pain in left knee (03/07/20) Pain in left ankle and joints of left foot (03/07/20) Weakness (03/07/20) Other fatigue (03/07/20) Physical Therapy Treatment Note PT-OP-A Visit Information Start: 01/02/20 17:36 Freq: Status: Active Protocol: Document 03/07/20 10:30 DCW (Rec: 03/07/20 11:16 DCW [id number]) Out-Patient Physical Therapy Visit Information Visit Information Visit Type Treatment Note Visit Start Time 10:30 Visit Stop Time 11:15 Total Visit Minutes 45 Visit Number 9 Number of COTTON PRESSER Visits 0 Evaluation Information Evaluation Date 01/02/20 PT-OP-B Current Condition Start: 01/02/20 17:36 Freq: Status: Active Protocol: Document 01/02/20 16:45 DCW (Rec: 01/02/20 18:00 DCW [id number]) Current Condition History of Current Condition Onset Date Multi-year history Current Complaints MS, fatigue, weakness, L knee pain, L ankle pain History of Current Condition Pt is a 64 year old female with a long-standing history of Multiple Sclerosis. Pt currently mobilizes in her manual wheelchair, and lives at a local care center. Pt has a long-standing history of Physical Therapy off and on at this facility over the past six years, and was working with PT on ambulation, strengthening, and transfers prior to the Covid-19 shut- down, but pt was discharged after her care facility had a mandatory shut-down, and pt was unable to attend physical therapy for ~3 months. Over this time, pt unfortunately spent most of her time lying in bed, which got even worse after she suffered multiple falls when trying to transfer, resulting in a sore left knee and ankle, and an overall refusal to do anything out of bed. Pt reports extreme pain when doing anything in standing, and she feels she has gotten substantially weaker since her last PT session. Pt's sister and [id number] also attended her session today, and report they are trying to get her in for an Ortho consult, and just left a message hoping to schedule an appointment earlier today. Prior Treatments and Tests Prior history of PT Knee x-ray: IMPRESSION: Moderate medial compartment degenerative knee joint osteoarthritis, no fracture found. If unusual symptoms persist followup by MR or delayed plain film imaging may be warranted. per Chauncey Dia M.D. on 12/01/2019 Ankle x-ray: IMPRESSION: No acute trauma found. Exostosis and chronic appearing accessory ossicle or old avulsion fragment as noted. per Chauncey Dia M.D. on Future Testing and Treatments Planned Possible MRI, Ortho consult Treatment Goals Patient/Caregiver Goals Pt wants to transfer more safely PT-OP-C Subjective Start: 01/02/20 17:36 Freq: Status: Active Protocol: Document 03/07/20 10:30 DCW (Rec: 03/07/20 11:16 DCW [id number]) OP-PT Subjective Patient Comments Patient Comments Pt reports she is feeling a little tired today. PT-OP-F Manual Assessment Start: 01/02/20 17:36 Freq: Status: Active Protocol: Document 01/02/20 16:45 DCW (Rec: 01/02/20 18:00 DCW [id number]) Manual Assessments Joint Mobility Assessment Joint Mobility Assessment Left knee laxity and pain with valgus force PT-OP-G Mobility & Gait Start: 01/02/20 17:36 Freq: Status: Active Protocol: Document 01/02/20 16:45 DCW (Rec: 01/02/20 18:00 DCW [id number]) OP Mobility Evaluation Transfers Sit to Stand Mod A x1, pt unable to fully extend knees to help support her weight, requires verbal cues for hand placement OP Gait Assessment Factors Limiting Gait Function Factors Limiting Gait Function Abnormal Tonal Influences, Decreased Activity Tolerance, Decreased Strength,Difficulty Following Directions, Incoordination,Limited Range of Motion,Pain,Poor Balance, Poor Safety Awareness Comments Gait Comments Pt barely able to stand at todays evaluation with Mod Ax1 and FWW, unable to attempt gait due to severe knee pain and weakness. PT-OP-L Special Tests Start: 01/02/20 17:36 Freq: Status: Active Protocol: Document 01/02/20 16:45 DCW (Rec: 01/02/20 18:00 DCW [id number]) Special Tests Knee Special Tests Kin Test Test Results Positive left Comments Performed in sitting Posterior Draw Test Results Negative Anterior Draw Test Results Negative Varus- 25 Degrees Test Results Negative Varus- 0 Degrees Test Results Negative Valgus- 25 Degrees Test Results Positive left Valgus- 0 Degrees Test Results Positive left PT-OP-M Strength Start: 01/02/20 17:36 Freq: Status: Active Protocol: Document 01/02/20 16:45 DCW (Rec: 01/02/20 18:00 DCW [id number]) Hip Strength Hip Manual Muscle Testing Right Flexion (L2) 4 Good Abduction 4 Good Adduction 4 Good Left Flexion (L2) 4- Good- Abduction 3+ Fair+ Adduction 4- Good- Knee Strength Knee Manual Muscle Testing Right Flexion (S2) 4+ Good+ Extension (L3) 4+ Good+ Left Flexion (S2) 3- Fair- Extension (L3) 2+ Poor+ Ankle/Foot Strength Ankle and Foot Manual Muscle Testing Right Dorsiflexion (L4) 4- Good- Plantarflexion (S1) 3- Fair- Inversion 4 Good Eversion (S1) 4 Good Left Dorsiflexion (L4) 4- Good- Plantarflexion (S1) 3- Fair- Inversion 3- Fair- Eversion (S1) 3- Fair- PT-OP-Q Treatments Start: 01/02/20 17:36 Freq: Status: Active Protocol: Document 03/07/20 10:30 DCW (Rec: 03/07/20 11:16 DCW [id number]) Cardio Equipment Upper Body Ergometer (UBE) Duration (Minutes) 6 Seat Position in W/C Height 2.5 Therapeutic Exercises Sitting Exercises 9 Sitting Exercise Name Hip Abduction Side bilateral Resistance Lv 3 Equipment Used T-band 8 Sitting Exercise Name Balloon Volley Resistance 2# 7 Sitting Exercise Name Overhead Press Side bilateral Resistance 9# Equipment Used PVC 6 Sitting Exercise Name Biceps Curls Side bilateral Resistance 9# Equipment Used PVC 5 Sitting Exercise Name Rows Side bilateral Resistance Lv 2 Equipment Used T-band 3 Sitting Exercise Name HS Curls Side bilateral Resistance Lv 3 Equipment Used T-band Standing Exercises 1 Standing Exercise Name Sit<->Stand Equipment Used // bars Reps/Minutes 3x5 Gait Training Gait Activity 1 Description Pre-gait Fwd/Bkwd weight shifting PT-OP-T Assessment and Plan Start: 01/02/20 17:36 Freq: Status: Active Protocol: Document 03/07/20 10:30 DCW (Rec: 03/07/20 11:16 DCW [id number]) Physical Therapy Assessment Impairments Impairments Activity Tolerance,Balance, Functional Activities, Functional Mobility,Gait,Pain, Posture,ROM,Soft Tissue Mobility,Strength,Transfers Goals Four Impairment Multiple falls at care center Custodial Goal (LTG) Pt to report no falls over the course of two months LTG Duration 03/04/20 Three Impairment Transfers Special Education Curriculum Specialist Goal (LTG) Pt to perform stand-pivot transfer CGA with FWW LTG Duration 03/04/20 Two Impairment Pt unable to tolerate standing for more than 10 seconds Custodial Goal (LTG) Pt to stand using FWW /c Min Ax1 for 90 seconds LTG Duration 03/04/20 One Impairment LE weakness Special Education Curriculum Specialist Goal (LTG) Ankle and knee MMT to to 3+/5 bilaterally Hip MMT to 4/5 bilaterally LTG Duration 03/04/20 Assessment Summary Assessment Pt did fairly well today, did not require and rest breaks, had no complaints of knee pain . Was having increased difficulty performing sit<-> stands today than she had been the past few weeks. Physical Therapy Plan Frequency and Duration Frequency of Treatment 1x/Week Duration of Treatment 12 weeks Plan of Care Start Date 01/02/20 Plan of Care End Date 03/26/20 Therapeutic Interventions Therapeutic Interventions Aquatic Therapy,Balance Training,Coordination Training ,Gait Training,Home Exercise Program,Joint Mobilizations, Manual Therapy,Neuromuscular Re-education,Patient/Caregiver Education,Self-Care/Home Management,Soft Tissue Mobilization,Therapeutic Activities,Therapeutic Exercises,Wheelchair Management Next Visit Focus/Plan Next Note Type Treatment Note Next Visit Plan LE strengthening, transfer training, increased activity tolerance
--- NOTE | 2020-03-16 16:05 | PT.OTN ---
Current Diagnoses Multiple sclerosis (03/16/20) Pain in left knee (03/16/20) Pain in left ankle and joints of left foot (03/16/20) Weakness (03/16/20) Other fatigue (03/16/20) Physical Therapy Treatment Note PT-OP-A Visit Information Start: 01/02/20 17:36 Freq: Status: Active Protocol: Document 03/16/20 15:15 DCW (Rec: 03/16/20 16:05 DCW [id number]) Out-Patient Physical Therapy Visit Information Visit Information Visit Type Treatment Note Visit Start Time 15:15 Visit Stop Time 16:00 Total Visit Minutes 45 Visit Number 10 Number of FLOOR SANDER Visits 0 Evaluation Information Evaluation Date 01/02/20 PT-OP-B Current Condition Start: 01/02/20 17:36 Freq: Status: Active Protocol: Document 01/02/20 16:45 DCW (Rec: 01/02/20 18:00 DCW [id number]) Current Condition History of Current Condition Onset Date Multi-year history Current Complaints MS, fatigue, weakness, L knee pain, L ankle pain History of Current Condition Pt is a 64 year old female with a long-standing history of Multiple Sclerosis. Pt currently mobilizes in her manual wheelchair, and lives at a local care center. Pt has a long-standing history of Physical Therapy off and on at this facility over the past six years, and was working with PT on ambulation, strengthening, and transfers prior to the Covid-19 shut- down, but pt was discharged after her care facility had a mandatory shut-down, and pt was unable to attend physical therapy for ~3 months. Over this time, pt unfortunately spent most of her time lying in bed, which got even worse after she suffered multiple falls when trying to transfer, resulting in a sore left knee and ankle, and an overall refusal to do anything out of bed. Pt reports extreme pain when doing anything in standing, and she feels she has gotten substantially weaker since her last PT session. Pt's sister and [id number] also attended her session today, and report they are trying to get her in for an Ortho consult, and just left a message hoping to schedule an appointment earlier today. Prior Treatments and Tests Prior history of PT Knee x-ray: IMPRESSION: Moderate medial compartment degenerative knee joint osteoarthritis, no fracture found. If unusual symptoms persist followup by MR or delayed plain film imaging may be warranted. per Chauncey Dia M.D. on 12/01/2019 Ankle x-ray: IMPRESSION: No acute trauma found. Exostosis and chronic appearing accessory ossicle or old avulsion fragment as noted. per Chauncey Dia M.D. on Future Testing and Treatments Planned Possible MRI, Ortho consult Treatment Goals Patient/Caregiver Goals Pt wants to transfer more safely PT-OP-C Subjective Start: 01/02/20 17:36 Freq: Status: Active Protocol: Document 03/16/20 15:15 DCW (Rec: 03/16/20 16:05 DCW [id number]) OP-PT Subjective Patient Comments Patient Comments Pt notes she is cold today, and her knee hurts. PT-OP-F Manual Assessment Start: 01/02/20 17:36 Freq: Status: Active Protocol: Document 01/02/20 16:45 DCW (Rec: 01/02/20 18:00 DCW [id number]) Manual Assessments Joint Mobility Assessment Joint Mobility Assessment Left knee laxity and pain with valgus force PT-OP-G Mobility & Gait Start: 01/02/20 17:36 Freq: Status: Active Protocol: Document 01/02/20 16:45 DCW (Rec: 01/02/20 18:00 DCW [id number]) OP Mobility Evaluation Transfers Sit to Stand Mod A x1, pt unable to fully extend knees to help support her weight, requires verbal cues for hand placement OP Gait Assessment Factors Limiting Gait Function Factors Limiting Gait Function Abnormal Tonal Influences, Decreased Activity Tolerance, Decreased Strength,Difficulty Following Directions, Incoordination,Limited Range of Motion,Pain,Poor Balance, Poor Safety Awareness Comments Gait Comments Pt barely able to stand at todays evaluation with Mod Ax1 and FWW, unable to attempt gait due to severe knee pain and weakness. PT-OP-L Special Tests Start: 01/02/20 17:36 Freq: Status: Active Protocol: Document 01/02/20 16:45 DCW (Rec: 01/02/20 18:00 DCW [id number]) Special Tests Knee Special Tests Kin Test Test Results Positive left Comments Performed in sitting Posterior Draw Test Results Negative Anterior Draw Test Results Negative Varus- 25 Degrees Test Results Negative Varus- 0 Degrees Test Results Negative Valgus- 25 Degrees Test Results Positive left Valgus- 0 Degrees Test Results Positive left PT-OP-M Strength Start: 01/02/20 17:36 Freq: Status: Active Protocol: Document 01/02/20 16:45 DCW (Rec: 01/02/20 18:00 DCW [id number]) Hip Strength Hip Manual Muscle Testing Right Flexion (L2) 4 Good Abduction 4 Good Adduction 4 Good Left Flexion (L2) 4- Good- Abduction 3+ Fair+ Adduction 4- Good- Knee Strength Knee Manual Muscle Testing Right Flexion (S2) 4+ Good+ Extension (L3) 4+ Good+ Left Flexion (S2) 3- Fair- Extension (L3) 2+ Poor+ Ankle/Foot Strength Ankle and Foot Manual Muscle Testing Right Dorsiflexion (L4) 4- Good- Plantarflexion (S1) 3- Fair- Inversion 4 Good Eversion (S1) 4 Good Left Dorsiflexion (L4) 4- Good- Plantarflexion (S1) 3- Fair- Inversion 3- Fair- Eversion (S1) 3- Fair- PT-OP-Q Treatments Start: 01/02/20 17:36 Freq: Status: Active Protocol: Document 03/16/20 15:15 DCW (Rec: 03/16/20 16:05 DCW [id number]) Cardio Equipment Upper Body Ergometer (UBE) Duration (Minutes) 6 Seat Position in W/C Height 2.5 Therapeutic Exercises Sitting Exercises 8 Sitting Exercise Name Balloon Volley Resistance 2# 7 Sitting Exercise Name Overhead Press Side bilateral Resistance 9# Equipment Used PVC 6 Sitting Exercise Name Biceps Curls Side bilateral Resistance 9# Equipment Used PVC 3 Sitting Exercise Name HS Curls Side bilateral Resistance Lv 3 Equipment Used T-band 2 Sitting Exercise Name Marching Side bilateral Resistance 5# 1 Sitting Exercise Name LAQ Side bilateral Resistance 5# Standing Exercises 1 Standing Exercise Name Sit<->Stand Equipment Used // bars Reps/Minutes 3x5 Gait Training Gait Activity 1 Description Pre-gait Fwd/Bkwd weight shifting PT-OP-T Assessment and Plan Start: 01/02/20 17:36 Freq: Status: Active Protocol: Document 03/16/20 15:15 DCW (Rec: 03/16/20 16:05 DCW [id number]) Physical Therapy Assessment Impairments Impairments Activity Tolerance,Balance, Functional Activities, Functional Mobility,Gait,Pain, Posture,ROM,Soft Tissue Mobility,Strength,Transfers Goals Four Impairment Multiple falls at care center Temp Recruiter Goal (LTG) Pt to report no falls over the course of two months LTG Duration 03/04/20 Three Impairment Transfers Temp Recruiter Goal (LTG) Pt to perform stand-pivot transfer CGA with FWW LTG Duration 03/04/20 Two Impairment Pt unable to tolerate standing for more than 10 seconds Temp Recruiter Goal (LTG) Pt to stand using FWW /c Min Ax1 for 90 seconds LTG Duration 03/04/20 One Impairment LE weakness Temp Recruiter Goal (LTG) Ankle and knee MMT to to 3+/5 bilaterally Hip MMT to 4/5 bilaterally LTG Duration 03/04/20 Assessment Summary Assessment Back to showing improvement with sit<->stands and pre-gait activity, may look to amb in // bars next visit. Physical Therapy Plan Frequency and Duration Frequency of Treatment 1x/Week Duration of Treatment 12 weeks Plan of Care Start Date 01/02/20 Plan of Care End Date 03/26/20 Therapeutic Interventions Therapeutic Interventions Aquatic Therapy,Balance Training,Coordination Training ,Gait Training,Home Exercise Program,Joint Mobilizations, Manual Therapy,Neuromuscular Re-education,Patient/Caregiver Education,Self-Care/Home Management,Soft Tissue Mobilization,Therapeutic Activities,Therapeutic Exercises,Wheelchair Management Next Visit Focus/Plan Next Note Type Treatment Note Next Visit Plan LE strengthening, transfer training, increased activity tolerance
--- NOTE | 2020-03-22 16:33 | PT.OTN ---
Current Diagnoses Multiple sclerosis (03/22/20) Pain in left knee (03/22/20) Pain in left ankle and joints of left foot (03/22/20) Weakness (03/22/20) Other fatigue (03/22/20) Physical Therapy Treatment Note PT-OP-A Visit Information Start: 01/02/20 17:36 Freq: Status: Active Protocol: Document 03/22/20 16:10 DCW (Rec: 03/22/20 16:33 DCW [id number]) Out-Patient Physical Therapy Visit Information Visit Information Visit Type Treatment Note Visit Note 10 min late, left 15 min early Visit Start Time 16:10 Visit Stop Time 16:30 Total Visit Minutes 20 Visit Number 11 Number of PROCUREMENT BUYER Visits 0 Evaluation Information Evaluation Date 01/02/20 PT-OP-B Current Condition Start: 01/02/20 17:36 Freq: Status: Active Protocol: Document 01/02/20 16:45 DCW (Rec: 01/02/20 18:00 DCW [id number]) Current Condition History of Current Condition Onset Date Multi-year history Current Complaints MS, fatigue, weakness, L knee pain, L ankle pain History of Current Condition Pt is a 64 year old female with a long-standing history of Multiple Sclerosis. Pt currently mobilizes in her manual wheelchair, and lives at a local care center. Pt has a long-standing history of Physical Therapy off and on at this facility over the past six years, and was working with PT on ambulation, strengthening, and transfers prior to the Covid-19 shut- down, but pt was discharged after her care facility had a mandatory shut-down, and pt was unable to attend physical therapy for ~3 months. Over this time, pt unfortunately spent most of her time lying in bed, which got even worse after she suffered multiple falls when trying to transfer, resulting in a sore left knee and ankle, and an overall refusal to do anything out of bed. Pt reports extreme pain when doing anything in standing, and she feels she has gotten substantially weaker since her last PT session. Pt's sister and [id number] also attended her session today, and report they are trying to get her in for an Ortho consult, and just left a message hoping to schedule an appointment earlier today. Prior Treatments and Tests Prior history of PT Knee x-ray: IMPRESSION: Moderate medial compartment degenerative knee joint osteoarthritis, no fracture found. If unusual symptoms persist followup by MR or delayed plain film imaging may be warranted. per Chauncey Dia M.D. on 12/01/2019 Ankle x-ray: IMPRESSION: No acute trauma found. Exostosis and chronic appearing accessory ossicle or old avulsion fragment as noted. per Chauncey Dia M.D. on Future Testing and Treatments Planned Possible MRI, Ortho consult Treatment Goals Patient/Caregiver Goals Pt wants to transfer more safely PT-OP-C Subjective Start: 01/02/20 17:36 Freq: Status: Active Protocol: Document 03/22/20 16:10 DCW (Rec: 03/22/20 16:33 DCW [id number]) OP-PT Subjective Patient Comments Patient Comments They forgot to tell me I had therapy today. PT-OP-F Manual Assessment Start: 01/02/20 17:36 Freq: Status: Active Protocol: Document 01/02/20 16:45 DCW (Rec: 01/02/20 18:00 DCW [id number]) Manual Assessments Joint Mobility Assessment Joint Mobility Assessment Left knee laxity and pain with valgus force PT-OP-G Mobility & Gait Start: 01/02/20 17:36 Freq: Status: Active Protocol: Document 01/02/20 16:45 DCW (Rec: 01/02/20 18:00 DCW [id number]) OP Mobility Evaluation Transfers Sit to Stand Mod A x1, pt unable to fully extend knees to help support her weight, requires verbal cues for hand placement OP Gait Assessment Factors Limiting Gait Function Factors Limiting Gait Function Abnormal Tonal Influences, Decreased Activity Tolerance, Decreased Strength,Difficulty Following Directions, Incoordination,Limited Range of Motion,Pain,Poor Balance, Poor Safety Awareness Comments Gait Comments Pt barely able to stand at todays evaluation with Mod Ax1 and FWW, unable to attempt gait due to severe knee pain and weakness. PT-OP-L Special Tests Start: 01/02/20 17:36 Freq: Status: Active Protocol: Document 01/02/20 16:45 DCW (Rec: 01/02/20 18:00 DCW [id number]) Special Tests Knee Special Tests Kin Test Test Results Positive left Comments Performed in sitting Posterior Draw Test Results Negative Anterior Draw Test Results Negative Varus- 25 Degrees Test Results Negative Varus- 0 Degrees Test Results Negative Valgus- 25 Degrees Test Results Positive left Valgus- 0 Degrees Test Results Positive left PT-OP-M Strength Start: 01/02/20 17:36 Freq: Status: Active Protocol: Document 01/02/20 16:45 DCW (Rec: 01/02/20 18:00 DCW [id number]) Hip Strength Hip Manual Muscle Testing Right Flexion (L2) 4 Good Abduction 4 Good Adduction 4 Good Left Flexion (L2) 4- Good- Abduction 3+ Fair+ Adduction 4- Good- Knee Strength Knee Manual Muscle Testing Right Flexion (S2) 4+ Good+ Extension (L3) 4+ Good+ Left Flexion (S2) 3- Fair- Extension (L3) 2+ Poor+ Ankle/Foot Strength Ankle and Foot Manual Muscle Testing Right Dorsiflexion (L4) 4- Good- Plantarflexion (S1) 3- Fair- Inversion 4 Good Eversion (S1) 4 Good Left Dorsiflexion (L4) 4- Good- Plantarflexion (S1) 3- Fair- Inversion 3- Fair- Eversion (S1) 3- Fair- PT-OP-Q Treatments Start: 01/02/20 17:36 Freq: Status: Active Protocol: Document 03/22/20 16:10 DCW (Rec: 03/22/20 16:33 DCW [id number]) Cardio Equipment Upper Body Ergometer (UBE) Duration (Minutes) 2 Seat Position in W/C Height 2.5 Therapeutic Exercises Standing Exercises 1 Standing Exercise Name Sit<->Stand Equipment Used // bars Reps/Minutes 3x5 Gait Training Gait Activity 1 Description Pre-gait Fwd/Bkwd weight shifting PT-OP-T Assessment and Plan Start: 01/02/20 17:36 Freq: Status: Active Protocol: Document 03/22/20 16:10 DCW (Rec: 03/22/20 16:33 DCW [id number]) Physical Therapy Assessment Impairments Impairments Activity Tolerance,Balance, Functional Activities, Functional Mobility,Gait,Pain, Posture,ROM,Soft Tissue Mobility,Strength,Transfers Goals Four Impairment Multiple falls at care center Recovery Auditor Goal (LTG) Pt to report no falls over the course of two months LTG Duration 04/21/20 Three Impairment Transfers Assisted Goal (LTG) Pt to perform stand-pivot transfer CGA with FWW LTG Duration 04/21/20 Two Impairment Pt unable to tolerate standing for more than 10 seconds Recovery Auditor Goal (LTG) Pt to stand using FWW /c Min Ax1 for 90 seconds LTG Duration 04/21/20 One Impairment LE weakness Assisted Goal (LTG) Ankle and knee MMT to to 3+/5 bilaterally Hip MMT to 4/5 bilaterally LTG Duration 04/21/20 Assessment Summary Assessment Attempted ambulation today, pt unable to take more than one step. Struggled more with sit- >stand today, repeatedly stated that she didn't have enough time to wake up and move since they didn't warn her she had therapy today and was running late. Pt eventually stated that she wanted to go back to her room, Physical Therapy Plan Frequency and Duration Frequency of Treatment 1x/Week Duration of Treatment 12 weeks Plan of Care Start Date 01/02/20 Plan of Care End Date 03/26/20 Therapeutic Interventions Therapeutic Interventions Aquatic Therapy,Balance Training,Coordination Training ,Gait Training,Home Exercise Program,Joint Mobilizations, Manual Therapy,Neuromuscular Re-education,Patient/Caregiver Education,Self-Care/Home Management,Soft Tissue Mobilization,Therapeutic Activities,Therapeutic Exercises,Wheelchair Management Next Visit Focus/Plan Next Note Type Treatment Note Next Visit Plan LE strengthening, transfer training, increased activity tolerance
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
--- NOTE | 2020-04-05 16:54 | PT.OTN ---
Current Diagnoses Multiple sclerosis (04/05/20) Pain in left knee (04/05/20) Pain in left ankle and joints of left foot (04/05/20) Weakness (04/05/20) Other fatigue (04/05/20) Physical Therapy Treatment Note PT-OP-A Visit Information Start: 01/02/20 17:36 Freq: Status: Active Protocol: Document 04/05/20 16:00 DCW (Rec: 04/05/20 16:54 DCW [id number]) Out-Patient Physical Therapy Visit Information Visit Information Visit Type Treatment Note Visit Start Time 16:00 Visit Stop Time 16:45 Total Visit Minutes 45 Visit Number 13 Number of ROBOT TECHNICIAN Visits 0 Evaluation Information Evaluation Date 01/02/20 PT-OP-B Current Condition Start: 01/02/20 17:36 Freq: Status: Active Protocol: Document 01/02/20 16:45 DCW (Rec: 01/02/20 18:00 DCW [id number]) Current Condition History of Current Condition Onset Date Multi-year history Current Complaints MS, fatigue, weakness, L knee pain, L ankle pain History of Current Condition Pt is a 64 year old female with a long-standing history of Multiple Sclerosis. Pt currently mobilizes in her manual wheelchair, and lives at a local care center. Pt has a long-standing history of Physical Therapy off and on at this facility over the past six years, and was working with PT on ambulation, strengthening, and transfers prior to the Covid-19 shut- down, but pt was discharged after her care facility had a mandatory shut-down, and pt was unable to attend physical therapy for ~3 months. Over this time, pt unfortunately spent most of her time lying in bed, which got even worse after she suffered multiple falls when trying to transfer, resulting in a sore left knee and ankle, and an overall refusal to do anything out of bed. Pt reports extreme pain when doing anything in standing, and she feels she has gotten substantially weaker since her last PT session. Pt's sister and [id number] also attended her session today, and report they are trying to get her in for an Ortho consult, and just left a message hoping to schedule an appointment earlier today. Prior Treatments and Tests Prior history of PT Knee x-ray: IMPRESSION: Moderate medial compartment degenerative knee joint osteoarthritis, no fracture found. If unusual symptoms persist followup by MR or delayed plain film imaging may be warranted. per Chauncey Dia M.D. on 12/01/2019 Ankle x-ray: IMPRESSION: No acute trauma found. Exostosis and chronic appearing accessory ossicle or old avulsion fragment as noted. per Chauncey Dia M.D. on Future Testing and Treatments Planned Possible MRI, Ortho consult Treatment Goals Patient/Caregiver Goals Pt wants to transfer more safely PT-OP-C Subjective Start: 01/02/20 17:36 Freq: Status: Active Protocol: Document 04/05/20 16:00 DCW (Rec: 04/05/20 16:54 DCW [id number]) OP-PT Subjective Patient Comments Patient Comments Pt reports she is good this week. Pt later notes she is very tired today. PT-OP-F Manual Assessment Start: 01/02/20 17:36 Freq: Status: Active Protocol: Document 01/02/20 16:45 DCW (Rec: 01/02/20 18:00 DCW [id number]) Manual Assessments Joint Mobility Assessment Joint Mobility Assessment Left knee laxity and pain with valgus force PT-OP-G Mobility & Gait Start: 01/02/20 17:36 Freq: Status: Active Protocol: Document 03/29/20 16:00 DCW (Rec: 03/29/20 17:05 DCW [id number]) OP Mobility Evaluation Transfers Sit to Stand Min Ax1 in // bars, verbal cues for hand placement OP Gait Assessment Factors Limiting Gait Function Factors Limiting Gait Function Abnormal Tonal Influences, Decreased Activity Tolerance, Decreased Strength,Difficulty Following Directions, Incoordination,Limited Range of Motion,Pain,Poor Balance, Poor Safety Awareness Comments Gait Comments Unable to perform gait activities. Improved pre-gait weight-shift in // bars PT-OP-L Special Tests Start: 01/02/20 17:36 Freq: Status: Active Protocol: Document 01/02/20 16:45 DCW (Rec: 01/02/20 18:00 DCW [id number]) Special Tests Knee Special Tests Kin Test Test Results Positive left Comments Performed in sitting Posterior Draw Test Results Negative Anterior Draw Test Results Negative Varus- 25 Degrees Test Results Negative Varus- 0 Degrees Test Results Negative Valgus- 25 Degrees Test Results Positive left Valgus- 0 Degrees Test Results Positive left PT-OP-M Strength Start: 01/02/20 17:36 Freq: Status: Active Protocol: Document 03/29/20 16:00 DCW (Rec: 03/29/20 17:05 DCW [id number]) Hip Strength Hip Manual Muscle Testing Right Flexion (L2) 4 Good Abduction 4 Good Adduction 4 Good Left Flexion (L2) 4- Good- Abduction 3+ Fair+ Adduction 4- Good- Knee Strength Knee Manual Muscle Testing Right Flexion (S2) 4+ Good+ Extension (L3) 4+ Good+ Left Flexion (S2) 3- Fair- Extension (L3) 2+ Poor+ Ankle/Foot Strength Ankle and Foot Manual Muscle Testing Right Dorsiflexion (L4) 4- Good- Plantarflexion (S1) 3- Fair- Inversion 4 Good Eversion (S1) 4 Good Left Dorsiflexion (L4) 4- Good- Plantarflexion (S1) 3- Fair- Inversion 3- Fair- Eversion (S1) 3- Fair- PT-OP-Q Treatments Start: 01/02/20 17:36 Freq: Status: Active Protocol: Document 04/05/20 16:00 DCW (Rec: 04/05/20 16:54 DCW [id number]) Cardio Equipment Upper Body Ergometer (UBE) Duration (Minutes) 6 Seat Position in W/C Height 2.5 Therapeutic Exercises Sitting Exercises 8 Sitting Exercise Name Balloon Volley Resistance 2# 7 Sitting Exercise Name Overhead Press Side bilateral Resistance 10# Equipment Used PVC 6 Sitting Exercise Name Biceps Curls Side bilateral Resistance 10# Equipment Used PVC 5 Sitting Exercise Name Hip Abduction Side bilateral Resistance Lv 3 Equipment Used T-band 3 Sitting Exercise Name HS Curls Side bilateral Resistance Lv 3 Equipment Used T-band 2 Sitting Exercise Name Marching Side bilateral Resistance 5# 1 Sitting Exercise Name LAQ Side bilateral Resistance 5# Standing Exercises 1 Standing Exercise Name Sit<->Stand Equipment Used // bars Reps/Minutes 3x5 Gait Training Gait Activity 1 Description Pre-gait Fwd/Bkwd weight shifting Neuro Re-Education Treatment Coordination Activities 1 Details Cone activities Equipment Cones Speed 10# ankle weight Comments Using feet to knock over cones for coordination training/ neuromuscular re-education PT-OP-T Assessment and Plan Start: 01/02/20 17:36 Freq: Status: Active Protocol: Document 04/05/20 16:00 DCW (Rec: 04/05/20 16:54 DCW [id number]) Physical Therapy Assessment Impairments Impairments Activity Tolerance,Balance, Functional Activities, Functional Mobility,Gait,Pain, Posture,ROM,Soft Tissue Mobility,Strength,Transfers Goals Four Impairment Multiple falls at care center Generation Manager Goal (LTG) Pt to report no falls over the course of two months LTG Duration 05/29/20 Three Impairment Transfers Longterm Goal (LTG) Pt to perform stand-pivot transfer CGA with FWW LTG Duration 05/29/20 Two Impairment Pt unable to tolerate standing for more than 10 seconds Longterm Goal (LTG) Pt to stand using FWW /c Min Ax1 for 90 seconds LTG Duration 05/29/20 One Impairment LE weakness Longterm Goal (LTG) Ankle and knee MMT to to 3+/5 bilaterally Hip MMT to 4/5 bilaterally LTG Duration 05/29/20 Assessment Summary Assessment Pt did very well with her sit< ->stands and weight-shifting today, however that activity seemed to completely drain her energy, and she was unable to put much effort into any of her remaining exercises. Physical Therapy Plan Frequency and Duration Frequency of Treatment 1x/Week Duration of Treatment 12 weeks Plan of Care Start Date 03/29/20 Plan of Care End Date 06/21/20 Therapeutic Interventions Therapeutic Interventions Aquatic Therapy,Balance Training,Coordination Training ,Gait Training,Home Exercise Program,Joint Mobilizations, Manual Therapy,Neuromuscular Re-education,Patient/Caregiver Education,Self-Care/Home Management,Soft Tissue Mobilization,Therapeutic Activities,Therapeutic Exercises,Wheelchair Management Next Visit Focus/Plan Next Note Type Treatment Note Next Visit Plan LE strengthening, transfer training, increased activity tolerance
--- NOTE | 2020-05-01 15:15 | PT.OTN ---
Current Diagnoses Multiple sclerosis (05/01/20) Pain in left knee (05/01/20) Pain in left ankle and joints of left foot (05/01/20) Weakness (05/01/20) Other fatigue (05/01/20) Physical Therapy Treatment Note PT-OP-A Visit Information Start: 01/02/20 17:36 Freq: Status: Active Protocol: Document 05/01/20 15:15 DLM (Rec: 05/01/20 16:30 DLM [id number]) Out-Patient Physical Therapy Visit Information Visit Information Visit Type Treatment Note Visit Start Time 15:15 Visit Stop Time 16:05 Total Visit Minutes 50 Visit Number 14 Number of TRANSPORTATION MODELER Visits 0 Evaluation Information Evaluation Date 01/02/20 PT-OP-B Current Condition Start: 01/02/20 17:36 Freq: Status: Active Protocol: Document 01/02/20 16:45 DCW (Rec: 01/02/20 18:00 DCW [id number]) Current Condition History of Current Condition Onset Date Multi-year history Current Complaints MS, fatigue, weakness, L knee pain, L ankle pain History of Current Condition Pt is a 64 year old female with a long-standing history of Multiple Sclerosis. Pt currently mobilizes in her manual wheelchair, and lives at a local care center. Pt has a long-standing history of Physical Therapy off and on at this facility over the past six years, and was working with PT on ambulation, strengthening, and transfers prior to the Covid-19 shut- down, but pt was discharged after her care facility had a mandatory shut-down, and pt was unable to attend physical therapy for ~3 months. Over this time, pt unfortunately spent most of her time lying in bed, which got even worse after she suffered multiple falls when trying to transfer, resulting in a sore left knee and ankle, and an overall refusal to do anything out of bed. Pt reports extreme pain when doing anything in standing, and she feels she has gotten substantially weaker since her last PT session. Pt's sister and [id number] also attended her session today, and report they are trying to get her in for an Ortho consult, and just left a message hoping to schedule an appointment earlier today. Prior Treatments and Tests Prior history of PT Knee x-ray: IMPRESSION: Moderate medial compartment degenerative knee joint osteoarthritis, no fracture found. If unusual symptoms persist followup by MR or delayed plain film imaging may be warranted. per Chauncey Dia M.D. on 12/01/2019 Ankle x-ray: IMPRESSION: No acute trauma found. Exostosis and chronic appearing accessory ossicle or old avulsion fragment as noted. per Chauncey Dia M.D. on Future Testing and Treatments Planned Possible MRI, Ortho consult Treatment Goals Patient/Caregiver Goals Pt wants to transfer more safely PT-OP-C Subjective Start: 01/02/20 17:36 Freq: Status: Active Protocol: Document 05/01/20 15:15 DLM (Rec: 05/01/20 16:30 DLM [id number]) OP-PT Subjective Patient Comments Patient Comments She was surprised by her appt today since it is not her normal day. She has been sitting up in wheelchair or recliner at home instead of staying in bed. She is wearing brace left knee. PT-OP-F Manual Assessment Start: 01/02/20 17:36 Freq: Status: Active Protocol: Document 01/02/20 16:45 DCW (Rec: 01/02/20 18:00 DCW [id number]) Manual Assessments Joint Mobility Assessment Joint Mobility Assessment Left knee laxity and pain with valgus force PT-OP-G Mobility & Gait Start: 01/02/20 17:36 Freq: Status: Active Protocol: Document 03/29/20 16:00 DCW (Rec: 03/29/20 17:05 DCW [id number]) OP Mobility Evaluation Transfers Sit to Stand Min Ax1 in // bars, verbal cues for hand placement OP Gait Assessment Factors Limiting Gait Function Factors Limiting Gait Function Abnormal Tonal Influences, Decreased Activity Tolerance, Decreased Strength,Difficulty Following Directions, Incoordination,Limited Range of Motion,Pain,Poor Balance, Poor Safety Awareness Comments Gait Comments Unable to perform gait activities. Improved pre-gait weight-shift in // bars PT-OP-L Special Tests Start: 01/02/20 17:36 Freq: Status: Active Protocol: Document 01/02/20 16:45 DCW (Rec: 01/02/20 18:00 DCW [id number]) Special Tests Knee Special Tests Kin Test Test Results Positive left Comments Performed in sitting Posterior Draw Test Results Negative Anterior Draw Test Results Negative Varus- 25 Degrees Test Results Negative Varus- 0 Degrees Test Results Negative Valgus- 25 Degrees Test Results Positive left Valgus- 0 Degrees Test Results Positive left PT-OP-M Strength Start: 01/02/20 17:36 Freq: Status: Active Protocol: Document 03/29/20 16:00 DCW (Rec: 03/29/20 17:05 DCW [id number]) Hip Strength Hip Manual Muscle Testing Right Flexion (L2) 4 Good Abduction 4 Good Adduction 4 Good Left Flexion (L2) 4- Good- Abduction 3+ Fair+ Adduction 4- Good- Knee Strength Knee Manual Muscle Testing Right Flexion (S2) 4+ Good+ Extension (L3) 4+ Good+ Left Flexion (S2) 3- Fair- Extension (L3) 2+ Poor+ Ankle/Foot Strength Ankle and Foot Manual Muscle Testing Right Dorsiflexion (L4) 4- Good- Plantarflexion (S1) 3- Fair- Inversion 4 Good Eversion (S1) 4 Good Left Dorsiflexion (L4) 4- Good- Plantarflexion (S1) 3- Fair- Inversion 3- Fair- Eversion (S1) 3- Fair- PT-OP-Q Treatments Start: 01/02/20 17:36 Freq: Status: Active Protocol: Document 05/01/20 15:15 DLM (Rec: 05/01/20 16:30 DLM [id number]) Cardio Equipment Upper Body Ergometer (UBE) Duration (Minutes) 6 Seat Position in Wheelchair Height 2.5 Therapeutic Exercises Sitting Exercises 8 Sitting Exercise Name Balloon Volley 5 Sitting Exercise Name Hip Abduction Side bilateral Resistance Lv 3 Equipment Used T-band Reps/Minutes 10 reps Comments provided theraband for home use 3 Sitting Exercise Name HS Curls Side bilateral Resistance Lv 3 Equipment Used T-band Reps/Minutes 10 reps 2 Sitting Exercise Name Marching Side bilateral Resistance 5# Reps/Minutes 10 reps 1 Sitting Exercise Name LAQ Side bilateral Resistance 5# Reps/Minutes x 10 reps Standing Exercises 1 Standing Exercise Name Sit<->Stand Equipment Used // bars Reps/Minutes 3x5 Gait Training Gait Activity 1 Description Pre-gait Fwd/Bkwd weight shifting Level of Assistance min assist Surface parallel bars Neuro Re-Education Treatment Balance Activities 1 Details Static standing Equipment parallel bars Comments tolerated 31 sec at a time with bilateral UE support Coordination Activities 1 Details Cone activities Equipment Cones Speed 5# ankle weight each ankle Comments Using feet to knock over cones for coordination training/ neuromuscular re-education Self-Care/Home Management Treatment Education Caregiver Education Her Son was present this visit and very supportive Activities Self-Care/Home Management Activities provided L3 theraband for home use with LE ex in sitting PT-OP-T Assessment and Plan Start: 01/02/20 17:36 Freq: Status: Active Protocol: Document 05/01/20 15:15 DLM (Rec: 05/01/20 16:30 DLM [id number]) Physical Therapy Assessment Goals Four Impairment Multiple falls at care center Piled[employer] Carpenter Goal (LTG) Pt to report no falls over the course of two months LTG Duration 05/29/20 Three Impairment Transfers [facility] Goal (LTG) Pt to perform stand-pivot transfer CGA with FWW LTG Duration 05/29/20 Two Impairment Pt unable to tolerate standing for more than 10 seconds [facility]itentiary Goal (LTG) Pt to stand using FWW /c Min Ax1 for 90 seconds LTG Duration 05/29/20 One Impairment LE weakness [facility]it[facility]iary Goal (LTG) Ankle and knee MMT to to 3+/5 bilaterally Hip MMT to 4/5 bilaterally LTG Duration 05/29/20 Progress Towards Goals Progress Towards Goals Progressing Toward Goals Assessment Summary Assessment She tolerated treatment well with fatigue by the end of the visit. She expressed desire to have theraband at home to do exercises. She reports pain in left knee with weight bearing in standing. She reports right knee is bruised also today. She needed min to mod assist for sit to clinical ob parallel bars although she is more consistent are on each side of her vs in front of her . She demonstrates functional left knee ext weakness during sit to stand. Physical Therapy Plan Frequency and Duration Frequency of Treatment 1x/Week Duration of Treatment 12 weeks Plan of Care Start Date 03/29/20 Plan of Care End Date 06/21/20 Therapeutic Interventions Therapeutic Interventions Aquatic Therapy,Balance Training,Coordination Training ,Gait Training,Home Exercise Program,Joint Mobilizations, Manual Therapy,Neuromuscular Re-education,Patient/Caregiver Education,Self-Care/Home Management,Soft Tissue Mobilization,Therapeutic Activities,Therapeutic Exercises,Wheelchair Management Next Visit Focus/Plan Next Note Type Treatment Note Next Visit Plan standing with fWW, transfer training, increased activity tolerance
--- NOTE | 2020-05-10 12:41 | PT.OTN ---
Current Diagnoses Multiple sclerosis (05/10/20) Pain in left knee (05/10/20) Pain in left ankle and joints of left foot (05/10/20) Weakness (05/10/20) Other fatigue (05/10/20) Physical Therapy Treatment Note PT-OP-A Visit Information Start: 01/02/20 17:36 Freq: Status: Active Protocol: Document 05/10/20 12:00 DCW (Rec: 05/10/20 12:41 DCW [id number]) Out-Patient Physical Therapy Visit Information Visit Information Visit Type Treatment Note Visit Start Time 12:00 Visit Stop Time 12:40 Total Visit Minutes 40 Visit Number 15 Number of X RAY TECH Visits 0 Evaluation Information Evaluation Date 01/02/20 PT-OP-B Current Condition Start: 01/02/20 17:36 Freq: Status: Active Protocol: Document 01/02/20 16:45 DCW (Rec: 01/02/20 18:00 DCW [id number]) Current Condition History of Current Condition Onset Date Multi-year history Current Complaints MS, fatigue, weakness, L knee pain, L ankle pain History of Current Condition Pt is a 64 year old female with a long-standing history of Multiple Sclerosis. Pt currently mobilizes in her manual wheelchair, and lives at a local care center. Pt has a long-standing history of Physical Therapy off and on at this facility over the past six years, and was working with PT on ambulation, strengthening, and transfers prior to the Covid-19 shut- down, but pt was discharged after her care facility had a mandatory shut-down, and pt was unable to attend physical therapy for ~3 months. Over this time, pt unfortunately spent most of her time lying in bed, which got even worse after she suffered multiple falls when trying to transfer, resulting in a sore left knee and ankle, and an overall refusal to do anything out of bed. Pt reports extreme pain when doing anything in standing, and she feels she has gotten substantially weaker since her last PT session. Pt's sister and [id number] also attended her session today, and report they are trying to get her in for an Ortho consult, and just left a message hoping to schedule an appointment earlier today. Prior Treatments and Tests Prior history of PT Knee x-ray: IMPRESSION: Moderate medial compartment degenerative knee joint osteoarthritis, no fracture found. If unusual symptoms persist followup by MR or delayed plain film imaging may be warranted. per Chauncey Dia M.D. on 12/01/2019 Ankle x-ray: IMPRESSION: No acute trauma found. Exostosis and chronic appearing accessory ossicle or old avulsion fragment as noted. per Chauncey Dia M.D. on Future Testing and Treatments Planned Possible MRI, Ortho consult Treatment Goals Patient/Caregiver Goals Pt wants to transfer more safely PT-OP-C Subjective Start: 01/02/20 17:36 Freq: Status: Active Protocol: Document 05/10/20 12:00 DCW (Rec: 05/10/20 12:41 DCW [id number]) OP-PT Subjective Patient Comments Patient Comments Pt doing well today, notes it is an early appointment time today. PT-OP-F Manual Assessment Start: 01/02/20 17:36 Freq: Status: Active Protocol: Document 01/02/20 16:45 DCW (Rec: 01/02/20 18:00 DCW [id number]) Manual Assessments Joint Mobility Assessment Joint Mobility Assessment Left knee laxity and pain with valgus force PT-OP-G Mobility & Gait Start: 01/02/20 17:36 Freq: Status: Active Protocol: Document 03/29/20 16:00 DCW (Rec: 03/29/20 17:05 DCW [id number]) OP Mobility Evaluation Transfers Sit to Stand Min Ax1 in // bars, verbal cues for hand placement OP Gait Assessment Factors Limiting Gait Function Factors Limiting Gait Function Abnormal Tonal Influences, Decreased Activity Tolerance, Decreased Strength,Difficulty Following Directions, Incoordination,Limited Range of Motion,Pain,Poor Balance, Poor Safety Awareness Comments Gait Comments Unable to perform gait activities. Improved pre-gait weight-shift in // bars PT-OP-L Special Tests Start: 01/02/20 17:36 Freq: Status: Active Protocol: Document 01/02/20 16:45 DCW (Rec: 01/02/20 18:00 DCW [id number]) Special Tests Knee Special Tests Kin Test Test Results Positive left Comments Performed in sitting Posterior Draw Test Results Negative Anterior Draw Test Results Negative Varus- 25 Degrees Test Results Negative Varus- 0 Degrees Test Results Negative Valgus- 25 Degrees Test Results Positive left Valgus- 0 Degrees Test Results Positive left PT-OP-M Strength Start: 01/02/20 17:36 Freq: Status: Active Protocol: Document 03/29/20 16:00 DCW (Rec: 03/29/20 17:05 DCW [id number]) Hip Strength Hip Manual Muscle Testing Right Flexion (L2) 4 Good Abduction 4 Good Adduction 4 Good Left Flexion (L2) 4- Good- Abduction 3+ Fair+ Adduction 4- Good- Knee Strength Knee Manual Muscle Testing Right Flexion (S2) 4+ Good+ Extension (L3) 4+ Good+ Left Flexion (S2) 3- Fair- Extension (L3) 2+ Poor+ Ankle/Foot Strength Ankle and Foot Manual Muscle Testing Right Dorsiflexion (L4) 4- Good- Plantarflexion (S1) 3- Fair- Inversion 4 Good Eversion (S1) 4 Good Left Dorsiflexion (L4) 4- Good- Plantarflexion (S1) 3- Fair- Inversion 3- Fair- Eversion (S1) 3- Fair- PT-OP-Q Treatments Start: 01/02/20 17:36 Freq: Status: Active Protocol: Document 05/10/20 12:00 DCW (Rec: 05/10/20 12:41 DCW [id number]) Cardio Equipment Upper Body Ergometer (UBE) Duration (Minutes) 6 Seat Position in Wheelchair Height 2.5 Therapeutic Exercises Sitting Exercises 8 Sitting Exercise Name Balloon Volley Resistance 2# 7 Sitting Exercise Name Overhead Press Side bilateral Resistance 10# Equipment Used PVC 6 Sitting Exercise Name Biceps Curls Side bilateral Resistance 10# Equipment Used PVC 5 Sitting Exercise Name Hip Abduction Side bilateral Resistance Lv 3 Equipment Used T-band 3 Sitting Exercise Name HS Curls Side bilateral Resistance Lv 3 Equipment Used T-band 2 Sitting Exercise Name Marching Side bilateral Resistance 5# 1 Sitting Exercise Name LAQ Side bilateral Resistance 5# Standing Exercises 1 Standing Exercise Name Sit<->Stand Equipment Used // bars Reps/Minutes 1x5, 1x2 PT-OP-T Assessment and Plan Start: 01/02/20 17:36 Freq: Status: Active Protocol: Document 05/10/20 12:00 DCW (Rec: 05/10/20 12:41 DCW [id number]) Physical Therapy Assessment Impairments Impairments Activity Tolerance,Balance, Functional Activities, Functional Mobility,Gait,Pain, Posture,ROM,Soft Tissue Mobility,Strength,Transfers Goals Four Impairment Multiple falls at care center Custodial Goal (LTG) Pt to report no falls over the course of two months LTG Duration 05/29/20 Three Impairment Transfers Custodial Goal (LTG) Pt to perform stand-pivot transfer CGA with FWW LTG Duration 05/29/20 Two Impairment Pt unable to tolerate standing for more than 10 seconds Golf Course Keeper Goal (LTG) Pt to stand using FWW /c Min Ax1 for 90 seconds LTG Duration 05/29/20 One Impairment LE weakness Custodial Goal (LTG) Ankle and knee MMT to to 3+/5 bilaterally Hip MMT to 4/5 bilaterally LTG Duration 05/29/20 Assessment Summary Assessment Pt struggled much more than usual today with her sit<-> stand, significantly more limited in mobility today. Pt unable to come up with reason for this. Very fatigued by end of session. Physical Therapy Plan Frequency and Duration Frequency of Treatment 1x/Week Duration of Treatment 12 weeks Plan of Care Start Date 03/29/20 Plan of Care End Date 06/21/20 Therapeutic Interventions Therapeutic Interventions Aquatic Therapy,Balance Training,Coordination Training ,Gait Training,Home Exercise Program,Joint Mobilizations, Manual Therapy,Neuromuscular Re-education,Patient/Caregiver Education,Self-Care/Home Management,Soft Tissue Mobilization,Therapeutic Activities,Therapeutic Exercises,Wheelchair Management Next Visit Focus/Plan Next Note Type Treatment Note Next Visit Plan standing with fWW, transfer training, increased activity tolerance
--- NOTE | 2020-05-17 16:46 | PT.OTN ---
Current Diagnoses Multiple sclerosis (05/17/20) Pain in left knee (05/17/20) Pain in left ankle and joints of left foot (05/17/20) Weakness (05/17/20) Other fatigue (05/17/20) Physical Therapy Treatment Note PT-OP-A Visit Information Start: 01/02/20 17:36 Freq: Status: Active Protocol: Document 05/17/20 16:03 DCW (Rec: 05/17/20 16:45 DCW [id number]) Out-Patient Physical Therapy Visit Information Visit Information Visit Type Treatment Note Visit Start Time 16:03 Visit Stop Time 16:45 Total Visit Minutes 42 Visit Number 16 Number of STEM TEACHER Visits 0 Evaluation Information Evaluation Date 01/02/20 PT-OP-B Current Condition Start: 01/02/20 17:36 Freq: Status: Active Protocol: Document 01/02/20 16:45 DCW (Rec: 01/02/20 18:00 DCW [id number]) Current Condition History of Current Condition Onset Date Multi-year history Current Complaints MS, fatigue, weakness, L knee pain, L ankle pain History of Current Condition Pt is a 64 year old female with a long-standing history of Multiple Sclerosis. Pt currently mobilizes in her manual wheelchair, and lives at a local care center. Pt has a long-standing history of Physical Therapy off and on at this facility over the past six years, and was working with PT on ambulation, strengthening, and transfers prior to the Covid-19 shut- down, but pt was discharged after her care facility had a mandatory shut-down, and pt was unable to attend physical therapy for ~3 months. Over this time, pt unfortunately spent most of her time lying in bed, which got even worse after she suffered multiple falls when trying to transfer, resulting in a sore left knee and ankle, and an overall refusal to do anything out of bed. Pt reports extreme pain when doing anything in standing, and she feels she has gotten substantially weaker since her last PT session. Pt's sister and [id number] also attended her session today, and report they are trying to get her in for an Ortho consult, and just left a message hoping to schedule an appointment earlier today. Prior Treatments and Tests Prior history of PT Knee x-ray: IMPRESSION: Moderate medial compartment degenerative knee joint osteoarthritis, no fracture found. If unusual symptoms persist followup by MR or delayed plain film imaging may be warranted. per Chauncey Dia M.D. on 12/01/2019 Ankle x-ray: IMPRESSION: No acute trauma found. Exostosis and chronic appearing accessory ossicle or old avulsion fragment as noted. per Chauncey Dia M.D. on Future Testing and Treatments Planned Possible MRI, Ortho consult Treatment Goals Patient/Caregiver Goals Pt wants to transfer more safely PT-OP-C Subjective Start: 01/02/20 17:36 Freq: Status: Active Protocol: Document 05/17/20 16:03 DCW (Rec: 05/17/20 16:45 DCW [id number]) OP-PT Subjective Patient Comments Patient Comments Pt notes she has been sneezing a lot lately. Admits she has been in bed a lot recently, so her knees feel weak. PT-OP-F Manual Assessment Start: 01/02/20 17:36 Freq: Status: Active Protocol: Document 01/02/20 16:45 DCW (Rec: 01/02/20 18:00 DCW [id number]) Manual Assessments Joint Mobility Assessment Joint Mobility Assessment Left knee laxity and pain with valgus force PT-OP-G Mobility & Gait Start: 01/02/20 17:36 Freq: Status: Active Protocol: Document 03/29/20 16:00 DCW (Rec: 03/29/20 17:05 DCW [id number]) OP Mobility Evaluation Transfers Sit to Stand Min Ax1 in // bars, verbal cues for hand placement OP Gait Assessment Factors Limiting Gait Function Factors Limiting Gait Function Abnormal Tonal Influences, Decreased Activity Tolerance, Decreased Strength,Difficulty Following Directions, Incoordination,Limited Range of Motion,Pain,Poor Balance, Poor Safety Awareness Comments Gait Comments Unable to perform gait activities. Improved pre-gait weight-shift in // bars PT-OP-L Special Tests Start: 01/02/20 17:36 Freq: Status: Active Protocol: Document 01/02/20 16:45 DCW (Rec: 01/02/20 18:00 DCW [id number]) Special Tests Knee Special Tests Kin Test Test Results Positive left Comments Performed in sitting Posterior Draw Test Results Negative Anterior Draw Test Results Negative Varus- 25 Degrees Test Results Negative Varus- 0 Degrees Test Results Negative Valgus- 25 Degrees Test Results Positive left Valgus- 0 Degrees Test Results Positive left PT-OP-M Strength Start: 01/02/20 17:36 Freq: Status: Active Protocol: Document 03/29/20 16:00 DCW (Rec: 03/29/20 17:05 DCW [id number]) Hip Strength Hip Manual Muscle Testing Right Flexion (L2) 4 Good Abduction 4 Good Adduction 4 Good Left Flexion (L2) 4- Good- Abduction 3+ Fair+ Adduction 4- Good- Knee Strength Knee Manual Muscle Testing Right Flexion (S2) 4+ Good+ Extension (L3) 4+ Good+ Left Flexion (S2) 3- Fair- Extension (L3) 2+ Poor+ Ankle/Foot Strength Ankle and Foot Manual Muscle Testing Right Dorsiflexion (L4) 4- Good- Plantarflexion (S1) 3- Fair- Inversion 4 Good Eversion (S1) 4 Good Left Dorsiflexion (L4) 4- Good- Plantarflexion (S1) 3- Fair- Inversion 3- Fair- Eversion (S1) 3- Fair- PT-OP-Q Treatments Start: 01/02/20 17:36 Freq: Status: Active Protocol: Document 05/17/20 16:03 DCW (Rec: 05/17/20 16:45 DCW [id number]) Cardio Equipment Upper Body Ergometer (UBE) Duration (Minutes) 6 Seat Position in Wheelchair Height 2.5 Therapeutic Exercises Sitting Exercises 8 Sitting Exercise Name Balloon Volley Resistance 2# 7 Sitting Exercise Name Overhead Press Side bilateral Resistance 10# Equipment Used PVC 6 Sitting Exercise Name Biceps Curls Side bilateral Resistance 10# Equipment Used PVC 5 Sitting Exercise Name Hip Abduction Side bilateral Resistance Lv 3 Equipment Used T-band 3 Sitting Exercise Name HS Curls Side bilateral Resistance Lv 3 Equipment Used T-band 2 Sitting Exercise Name Marching Side bilateral Resistance 5# 1 Sitting Exercise Name LAQ Side bilateral Resistance 5# Standing Exercises 1 Standing Exercise Name Sit<->Stand Equipment Used // bars Reps/Minutes 3x5 PT-OP-T Assessment and Plan Start: 01/02/20 17:36 Freq: Status: Active Protocol: Document 05/17/20 16:03 DCW (Rec: 05/17/20 16:45 DCW [id number]) Physical Therapy Assessment Impairments Impairments Activity Tolerance,Balance, Functional Activities, Functional Mobility,Gait,Pain, Posture,ROM,Soft Tissue Mobility,Strength,Transfers Goals Four Impairment Multiple falls at care center Photovoltaic Power Systems Engineer Goal (LTG) Pt to report no falls over the course of two months LTG Duration 05/29/20 Three Impairment Transfers Snf Goal (LTG) Pt to perform stand-pivot transfer CGA with FWW LTG Duration 05/29/20 Two Impairment Pt unable to tolerate standing for more than 10 seconds Photovoltaic Power Systems Engineer Goal (LTG) Pt to stand using FWW /c Min Ax1 for 90 seconds LTG Duration 05/29/20 One Impairment LE weakness Photovoltaic Power Systems Engineer Goal (LTG) Ankle and knee MMT to to 3+/5 bilaterally Hip MMT to 4/5 bilaterally LTG Duration 05/29/20 Assessment Summary Assessment Pt improved today vs last week , able to participate in sit<- >stands fully, no complaints of pain or weakness with activities. Physical Therapy Plan Frequency and Duration Frequency of Treatment 1x/Week Duration of Treatment 12 weeks Plan of Care Start Date 03/29/20 Plan of Care End Date 06/21/20 Therapeutic Interventions Therapeutic Interventions Aquatic Therapy,Balance Training,Coordination Training ,Gait Training,Home Exercise Program,Joint Mobilizations, Manual Therapy,Neuromuscular Re-education,Patient/Caregiver Education,Self-Care/Home Management,Soft Tissue Mobilization,Therapeutic Activities,Therapeutic Exercises,Wheelchair Management Next Visit Focus/Plan Next Note Type Treatment Note Next Visit Plan standing with fWW, transfer training, increased activity tolerance
--- NOTE | 2020-05-24 16:54 | PT.OTN ---
Current Diagnoses Multiple sclerosis (05/24/20) Pain in left knee (05/24/20) Pain in left ankle and joints of left foot (05/24/20) Weakness (05/24/20) Other fatigue (05/24/20) Physical Therapy Treatment Note PT-OP-A Visit Information Start: 01/02/20 17:36 Freq: Status: Active Protocol: Document 05/24/20 16:00 DCW (Rec: 05/24/20 16:53 DCW [id number]) Out-Patient Physical Therapy Visit Information Visit Information Visit Type Treatment Note Visit Start Time 16:00 Visit Stop Time 16:45 Total Visit Minutes 45 Visit Number 17 Number of HEALTH RECORDS TECHNOLOGY TEACHER Visits 0 Evaluation Information Evaluation Date 01/02/20 PT-OP-B Current Condition Start: 01/02/20 17:36 Freq: Status: Active Protocol: Document 01/02/20 16:45 DCW (Rec: 01/02/20 18:00 DCW [id number]) Current Condition History of Current Condition Onset Date Multi-year history Current Complaints MS, fatigue, weakness, L knee pain, L ankle pain History of Current Condition Pt is a 64 year old female with a long-standing history of Multiple Sclerosis. Pt currently mobilizes in her manual wheelchair, and lives at a local care center. Pt has a long-standing history of Physical Therapy off and on at this facility over the past six years, and was working with PT on ambulation, strengthening, and transfers prior to the Covid-19 shut- down, but pt was discharged after her care facility had a mandatory shut-down, and pt was unable to attend physical therapy for ~3 months. Over this time, pt unfortunately spent most of her time lying in bed, which got even worse after she suffered multiple falls when trying to transfer, resulting in a sore left knee and ankle, and an overall refusal to do anything out of bed. Pt reports extreme pain when doing anything in standing, and she feels she has gotten substantially weaker since her last PT session. Pt's sister and [id number] also attended her session today, and report they are trying to get her in for an Ortho consult, and just left a message hoping to schedule an appointment earlier today. Prior Treatments and Tests Prior history of PT Knee x-ray: IMPRESSION: Moderate medial compartment degenerative knee joint osteoarthritis, no fracture found. If unusual symptoms persist followup by MR or delayed plain film imaging may be warranted. per Chauncey Dia M.D. on 12/01/2019 Ankle x-ray: IMPRESSION: No acute trauma found. Exostosis and chronic appearing accessory ossicle or old avulsion fragment as noted. per Chauncey Dia M.D. on Future Testing and Treatments Planned Possible MRI, Ortho consult Treatment Goals Patient/Caregiver Goals Pt wants to transfer more safely PT-OP-C Subjective Start: 01/02/20 17:36 Freq: Status: Active Protocol: Document 05/24/20 16:00 DCW (Rec: 05/24/20 16:53 DCW [id number]) OP-PT Subjective Patient Comments Patient Comments Pt noites she is cold today, but okay otherwise. PT-OP-F Manual Assessment Start: 01/02/20 17:36 Freq: Status: Active Protocol: Document 01/02/20 16:45 DCW (Rec: 01/02/20 18:00 DCW [id number]) Manual Assessments Joint Mobility Assessment Joint Mobility Assessment Left knee laxity and pain with valgus force PT-OP-G Mobility & Gait Start: 01/02/20 17:36 Freq: Status: Active Protocol: Document 03/29/20 16:00 DCW (Rec: 03/29/20 17:05 DCW [id number]) OP Mobility Evaluation Transfers Sit to Stand Min Ax1 in // bars, verbal cues for hand placement OP Gait Assessment Factors Limiting Gait Function Factors Limiting Gait Function Abnormal Tonal Influences, Decreased Activity Tolerance, Decreased Strength,Difficulty Following Directions, Incoordination,Limited Range of Motion,Pain,Poor Balance, Poor Safety Awareness Comments Gait Comments Unable to perform gait activities. Improved pre-gait weight-shift in // bars PT-OP-L Special Tests Start: 01/02/20 17:36 Freq: Status: Active Protocol: Document 01/02/20 16:45 DCW (Rec: 01/02/20 18:00 DCW [id number]) Special Tests Knee Special Tests Kin Test Test Results Positive left Comments Performed in sitting Posterior Draw Test Results Negative Anterior Draw Test Results Negative Varus- 25 Degrees Test Results Negative Varus- 0 Degrees Test Results Negative Valgus- 25 Degrees Test Results Positive left Valgus- 0 Degrees Test Results Positive left PT-OP-M Strength Start: 01/02/20 17:36 Freq: Status: Active Protocol: Document 03/29/20 16:00 DCW (Rec: 03/29/20 17:05 DCW [id number]) Hip Strength Hip Manual Muscle Testing Right Flexion (L2) 4 Good Abduction 4 Good Adduction 4 Good Left Flexion (L2) 4- Good- Abduction 3+ Fair+ Adduction 4- Good- Knee Strength Knee Manual Muscle Testing Right Flexion (S2) 4+ Good+ Extension (L3) 4+ Good+ Left Flexion (S2) 3- Fair- Extension (L3) 2+ Poor+ Ankle/Foot Strength Ankle and Foot Manual Muscle Testing Right Dorsiflexion (L4) 4- Good- Plantarflexion (S1) 3- Fair- Inversion 4 Good Eversion (S1) 4 Good Left Dorsiflexion (L4) 4- Good- Plantarflexion (S1) 3- Fair- Inversion 3- Fair- Eversion (S1) 3- Fair- PT-OP-Q Treatments Start: 01/02/20 17:36 Freq: Status: Active Protocol: Document 05/24/20 16:00 DCW (Rec: 05/24/20 16:53 DCW [id number]) Cardio Equipment Upper Body Ergometer (UBE) Duration (Minutes) 6 Seat Position in Wheelchair Height 2.5 Therapeutic Exercises Sitting Exercises 8 Sitting Exercise Name Balloon Volley Resistance 2# 7 Sitting Exercise Name Overhead Press Side bilateral Resistance 10# Equipment Used PVC 6 Sitting Exercise Name Biceps Curls Side bilateral Resistance 10# Equipment Used PVC 5 Sitting Exercise Name Hip Abduction Side bilateral Resistance Lv 3 Equipment Used T-band 3 Sitting Exercise Name HS Curls Side bilateral Resistance Lv 3 Equipment Used T-band 2 Sitting Exercise Name Marching Side bilateral Resistance 5# 1 Sitting Exercise Name LAQ Side bilateral Resistance 5# Standing Exercises 1 Standing Exercise Name Sit<->Stand Equipment Used // bars Reps/Minutes 2x5 Neuro Re-Education Treatment Coordination Activities 1 Details Cone activities Equipment Cones Speed 5# ankle weight each ankle Comments Using feet to knock over cones for coordination training/ neuromuscular re-education PT-OP-T Assessment and Plan Start: 01/02/20 17:36 Freq: Status: Active Protocol: Document 05/24/20 16:00 DCW (Rec: 05/24/20 16:53 DCW [id number]) Physical Therapy Assessment Impairments Impairments Activity Tolerance,Balance, Functional Activities, Functional Mobility,Gait,Pain, Posture,ROM,Soft Tissue Mobility,Strength,Transfers Goals Four Impairment Multiple falls at care center Senior Care Goal (LTG) Pt to report no falls over the course of two months LTG Duration 05/29/20 Three Impairment Transfers Patient Care Nursing Assistant Goal (LTG) Pt to perform stand-pivot transfer CGA with FWW LTG Duration 05/29/20 Two Impairment Pt unable to tolerate standing for more than 10 seconds Patient Care Nursing Assistant Goal (LTG) Pt to stand using FWW /c Min Ax1 for 90 seconds LTG Duration 05/29/20 One Impairment LE weakness Senior Care Goal (LTG) Ankle and knee MMT to to 3+/5 bilaterally Hip MMT to 4/5 bilaterally LTG Duration 05/29/20 Assessment Summary Assessment Pt had fairly poor motivation today today, wanted to stop multiple activities mid- attempt just because she did not want to be doing them. Was eventually able to convince pt to participate. Physical Therapy Plan Frequency and Duration Frequency of Treatment 1x/Week Duration of Treatment 12 weeks Plan of Care Start Date 03/29/20 Plan of Care End Date 06/21/20 Therapeutic Interventions Therapeutic Interventions Aquatic Therapy,Balance Training,Coordination Training ,Gait Training,Home Exercise Program,Joint Mobilizations, Manual Therapy,Neuromuscular Re-education,Patient/Caregiver Education,Self-Care/Home Management,Soft Tissue Mobilization,Therapeutic Activities,Therapeutic Exercises,Wheelchair Management Next Visit Focus/Plan Next Note Type Treatment Note Next Visit Plan standing with fWW, transfer training, increased activity tolerance
--- NOTE | 2020-05-31 16:48 | PT.OTN ---
Current Diagnoses Multiple sclerosis (05/31/20) Pain in left knee (05/31/20) Pain in left ankle and joints of left foot (05/31/20) Weakness (05/31/20) Other fatigue (05/31/20) Physical Therapy Treatment Note PT-OP-A Visit Information Start: 01/02/20 17:36 Freq: Status: Active Protocol: Document 05/31/20 16:00 DCW (Rec: 05/31/20 16:44 DCW [id number]) Out-Patient Physical Therapy Visit Information Visit Information Visit Type Treatment Note Visit Start Time 16:00 Visit Stop Time 16:45 Total Visit Minutes 45 Visit Number 18 Number of CONSUMER SERVICES ADVISOR Visits 0 Evaluation Information Evaluation Date 01/02/20 PT-OP-B Current Condition Start: 01/02/20 17:36 Freq: Status: Active Protocol: Document 01/02/20 16:45 DCW (Rec: 01/02/20 18:00 DCW [id number]) Current Condition History of Current Condition Onset Date Multi-year history Current Complaints MS, fatigue, weakness, L knee pain, L ankle pain History of Current Condition Pt is a 64 year old female with a long-standing history of Multiple Sclerosis. Pt currently mobilizes in her manual wheelchair, and lives at a local care center. Pt has a long-standing history of Physical Therapy off and on at this facility over the past six years, and was working with PT on ambulation, strengthening, and transfers prior to the id-19 shut- down, but pt was discharged after her care facility had a mandatory shut-down, and pt was unable to attend physical therapy for ~3 months. Over this time, pt unfortunately spent most of her time lying in bed, which got even worse after she suffered multiple falls when trying to transfer, resulting in a sore left knee and ankle, and an overall refusal to do anything out of bed. Pt reports extreme pain when doing anything in standing, and she feels she has gotten substantially weaker since her last PT session. Pt's sister and [id number] also attended her session today, and report they are trying to get her in for an Ortho consult, and just left a message hoping to schedule an appointment earlier today. Prior Treatments and Tests Prior history of PT Knee x-ray: IMPRESSION: Moderate medial compartment degenerative knee joint osteoarthritis, no fracture found. If unusual symptoms persist followup by MR or delayed plain film imaging may be warranted. per Chauncey Dia M.D. on 12/01/2019 Ankle x-ray: IMPRESSION: No acute trauma found. Exostosis and chronic appearing accessory ossicle or old avulsion fragment as noted. per Chauncey Dia M.D. on Future Testing and Treatments Planned Possible MRI, Ortho consult Treatment Goals Patient/Caregiver Goals Pt wants to transfer more safely PT-OP-C Subjective Start: 01/02/20 17:36 Freq: Status: Active Protocol: Document 05/31/20 16:00 DCW (Rec: 05/31/20 16:44 DCW [id number]) OP-PT Subjective Patient Comments Patient Comments I'm alright, but it's a little cold. PT-OP-F Manual Assessment Start: 01/02/20 17:36 Freq: Status: Active Protocol: Document 01/02/20 16:45 DCW (Rec: 01/02/20 18:00 DCW [id number]) Manual Assessments Joint Mobility Assessment Joint Mobility Assessment Left knee laxity and pain with valgus force PT-OP-G Mobility & Gait Start: 01/02/20 17:36 Freq: Status: Active Protocol: Document 03/29/20 16:00 DCW (Rec: 03/29/20 17:05 DCW [id number]) OP Mobility Evaluation Transfers Sit to Stand Min Ax1 in // bars, verbal cues for hand placement OP Gait Assessment Factors Limiting Gait Function Factors Limiting Gait Function Abnormal Tonal Influences, Decreased Activity Tolerance, Decreased Strength,Difficulty Following Directions, Incoordination,Limited Range of Motion,Pain,Poor Balance, Poor Safety Awareness Comments Gait Comments Unable to perform gait activities. Improved pre-gait weight-shift in // bars PT-OP-L Special Tests Start: 01/02/20 17:36 Freq: Status: Active Protocol: Document 01/02/20 16:45 DCW (Rec: 01/02/20 18:00 DCW [id number]) Special Tests Knee Special Tests Kin Test Test Results Positive left Comments Performed in sitting Posterior Draw Test Results Negative Anterior Draw Test Results Negative Varus- 25 Degrees Test Results Negative Varus- 0 Degrees Test Results Negative Valgus- 25 Degrees Test Results Positive left Valgus- 0 Degrees Test Results Positive left PT-OP-M Strength Start: 01/02/20 17:36 Freq: Status: Active Protocol: Document 03/29/20 16:00 DCW (Rec: 03/29/20 17:05 DCW [id number]) Hip Strength Hip Manual Muscle Testing Right Flexion (L2) 4 Good Abduction 4 Good Adduction 4 Good Left Flexion (L2) 4- Good- Abduction 3+ Fair+ Adduction 4- Good- Knee Strength Knee Manual Muscle Testing Right Flexion (S2) 4+ Good+ Extension (L3) 4+ Good+ Left Flexion (S2) 3- Fair- Extension (L3) 2+ Poor+ Ankle/Foot Strength Ankle and Foot Manual Muscle Testing Right Dorsiflexion (L4) 4- Good- Plantarflexion (S1) 3- Fair- Inversion 4 Good Eversion (S1) 4 Good Left Dorsiflexion (L4) 4- Good- Plantarflexion (S1) 3- Fair- Inversion 3- Fair- Eversion (S1) 3- Fair- PT-OP-Q Treatments Start: 01/02/20 17:36 Freq: Status: Active Protocol: Document 05/31/20 16:00 DCW (Rec: 05/31/20 16:44 DCW [id number]) Therapeutic Exercises Sitting Exercises 9 Sitting Exercise Name Hip Adduction Ball Squeeze Side bilateral 8 Sitting Exercise Name Balloon Volley Resistance 2# 7 Sitting Exercise Name Overhead Press Side bilateral Resistance 10# Equipment Used PVC 6 Sitting Exercise Name Biceps Curls Side bilateral Resistance 10# Equipment Used PVC 5 Sitting Exercise Name Hip Abduction Side bilateral Resistance Lv 3 Equipment Used T-band 3 Sitting Exercise Name HS Curls Side bilateral Resistance Lv 3 Equipment Used T-band 2 Sitting Exercise Name Marching Side bilateral Resistance 5# 1 Sitting Exercise Name LAQ Side bilateral Resistance 5# Standing Exercises 1 Standing Exercise Name Sit<->Stand Equipment Used // bars Reps/Minutes 3x5 Gait Training Gait Activity 1 Description Pre-gait Fwd/Bkwd weight shifting Level of Assistance min assist Surface parallel bars PT-OP-T Assessment and Plan Start: 01/02/20 17:36 Freq: Status: Active Protocol: Document 05/31/20 16:00 DCW (Rec: 05/31/20 16:44 DCW [id number]) Physical Therapy Assessment Impairments Impairments Activity Tolerance,Balance, Functional Activities, Functional Mobility,Gait,Pain, Posture,ROM,Soft Tissue Mobility,Strength,Transfers Goals Four Impairment Multiple falls at care center Filtering Machine Tender Helper Goal (LTG) Pt to report no falls over the course of two months LTG Duration Met Three Impairment Transfers Filtering Machine Tender Helper Goal (LTG) Pt to perform stand-pivot transfer CGA with FWW LTG Duration 06/21/20 Two Impairment Pt unable to tolerate standing for more than 10 seconds Filtering Machine Tender Helper Goal (LTG) Pt to stand using FWW /c Min Ax1 for 90 seconds LTG Duration 06/21/20 One Impairment LE weakness Filtering Machine Tender Helper Goal (LTG) Ankle and knee MMT to to 3+/5 bilaterally Hip MMT to 4/5 bilaterally LTG Duration 06/21/20 Assessment Summary Assessment Pt much better today, did very well sit<->stand, had good motivation, tolerated treatment with no requests for stopping or breaks Physical Therapy Plan Frequency and Duration Frequency of Treatment 1x/Week Duration of Treatment 12 weeks Plan of Care Start Date 03/29/20 Plan of Care End Date 06/21/20 Therapeutic Interventions Therapeutic Interventions Aquatic Therapy,Balance Training,Coordination Training ,Gait Training,Home Exercise Program,Joint Mobilizations, Manual Therapy,Neuromuscular Re-education,Patient/Caregiver Education,Self-Care/Home Management,Soft Tissue Mobilization,Therapeutic Activities,Therapeutic Exercises,Wheelchair Management Next Visit Focus/Plan Next Note Type Treatment Note Next Visit Plan standing with fWW, transfer training, increased activity tolerance
--- NOTE | 2020-06-06 16:46 | PT.OTN ---
Current Diagnoses Multiple sclerosis (06/06/20) Pain in left knee (06/06/20) Pain in left ankle and joints of left foot (06/06/20) Weakness (06/06/20) Other fatigue (06/06/20) Physical Therapy Treatment Note PT-OP-A Visit Information Start: 01/02/20 17:36 Freq: Status: Active Protocol: Document 06/06/20 16:00 DCW (Rec: 06/06/20 16:46 DCW [id number]) Out-Patient Physical Therapy Visit Information Visit Information Visit Type Treatment Note Visit Start Time 16:00 Visit Stop Time 16:45 Total Visit Minutes 45 Visit Number 19 Number of SOLAR LAB TECHNICIAN Visits 0 Evaluation Information Evaluation Date 01/02/20 PT-OP-B Current Condition Start: 01/02/20 17:36 Freq: Status: Active Protocol: Document 01/02/20 16:45 DCW (Rec: 01/02/20 18:00 DCW [id number]) Current Condition History of Current Condition Onset Date Multi-year history Current Complaints MS, fatigue, weakness, L knee pain, L ankle pain History of Current Condition Pt is a 64 year old female with a long-standing history of Multiple Sclerosis. Pt currently mobilizes in her manual wheelchair, and lives at a local care center. Pt has a long-standing history of Physical Therapy off and on at this facility over the past six years, and was working with PT on ambulation, strengthening, and transfers prior to the Covid-19 shut- down, but pt was discharged after her care facility had a mandatory shut-down, and pt was unable to attend physical therapy for ~3 months. Over this time, pt unfortunately spent most of her time lying in bed, which got even worse after she suffered multiple falls when trying to transfer, resulting in a sore left knee and ankle, and an overall refusal to do anything out of bed. Pt reports extreme pain when doing anything in standing, and she feels she has gotten substantially weaker since her last PT session. Pt's sister and [id number] also attended her session today, and report they are trying to get her in for an Ortho consult, and just left a message hoping to schedule an appointment earlier today. Prior Treatments and Tests Prior history of PT Knee x-ray: IMPRESSION: Moderate medial compartment degenerative knee joint osteoarthritis, no fracture found. If unusual symptoms persist followup by MR or delayed plain film imaging may be warranted. per Chauncey Dia M.D. on 12/01/2019 Ankle x-ray: IMPRESSION: No acute trauma found. Exostosis and chronic appearing accessory ossicle or old avulsion fragment as noted. per Chauncey Dia M.D. on Future Testing and Treatments Planned Possible MRI, Ortho consult Treatment Goals Patient/Caregiver Goals Pt wants to transfer more safely PT-OP-C Subjective Start: 01/02/20 17:36 Freq: Status: Active Protocol: Document 06/06/20 16:00 DCW (Rec: 06/06/20 16:46 DCW [id number]) OP-PT Subjective Patient Comments Patient Comments Pt reports she does not have any new complaints, no recent falls. PT-OP-F Manual Assessment Start: 01/02/20 17:36 Freq: Status: Active Protocol: Document 01/02/20 16:45 DCW (Rec: 01/02/20 18:00 DCW [id number]) Manual Assessments Joint Mobility Assessment Joint Mobility Assessment Left knee laxity and pain with valgus force PT-OP-G Mobility & Gait Start: 01/02/20 17:36 Freq: Status: Active Protocol: Document 03/29/20 16:00 DCW (Rec: 03/29/20 17:05 DCW [id number]) OP Mobility Evaluation Transfers Sit to Stand Min Ax1 in // bars, verbal cues for hand placement OP Gait Assessment Factors Limiting Gait Function Factors Limiting Gait Function Abnormal Tonal Influences, Decreased Activity Tolerance, Decreased Strength,Difficulty Following Directions, Incoordination,Limited Range of Motion,Pain,Poor Balance, Poor Safety Awareness Comments Gait Comments Unable to perform gait activities. Improved pre-gait weight-shift in // bars PT-OP-L Special Tests Start: 01/02/20 17:36 Freq: Status: Active Protocol: Document 01/02/20 16:45 DCW (Rec: 01/02/20 18:00 DCW [id number]) Special Tests Knee Special Tests Kin Test Test Results Positive left Comments Performed in sitting Posterior Draw Test Results Negative Anterior Draw Test Results Negative Varus- 25 Degrees Test Results Negative Varus- 0 Degrees Test Results Negative Valgus- 25 Degrees Test Results Positive left Valgus- 0 Degrees Test Results Positive left PT-OP-M Strength Start: 01/02/20 17:36 Freq: Status: Active Protocol: Document 03/29/20 16:00 DCW (Rec: 03/29/20 17:05 DCW [id number]) Hip Strength Hip Manual Muscle Testing Right Flexion (L2) 4 Good Abduction 4 Good Adduction 4 Good Left Flexion (L2) 4- Good- Abduction 3+ Fair+ Adduction 4- Good- Knee Strength Knee Manual Muscle Testing Right Flexion (S2) 4+ Good+ Extension (L3) 4+ Good+ Left Flexion (S2) 3- Fair- Extension (L3) 2+ Poor+ Ankle/Foot Strength Ankle and Foot Manual Muscle Testing Right Dorsiflexion (L4) 4- Good- Plantarflexion (S1) 3- Fair- Inversion 4 Good Eversion (S1) 4 Good Left Dorsiflexion (L4) 4- Good- Plantarflexion (S1) 3- Fair- Inversion 3- Fair- Eversion (S1) 3- Fair- PT-OP-Q Treatments Start: 01/02/20 17:36 Freq: Status: Active Protocol: Document 06/06/20 16:00 DCW (Rec: 06/06/20 16:46 DCW [id number]) Cardio Equipment Upper Body Ergometer (UBE) Duration (Minutes) 6 Seat Position in Wheelchair Height 2.5 Therapeutic Exercises Sitting Exercises 9 Sitting Exercise Name Hip Adduction Ball Squeeze Side bilateral 8 Sitting Exercise Name Balloon Volley Resistance 2# 7 Sitting Exercise Name Overhead Press Side bilateral Resistance 10# Equipment Used PVC 6 Sitting Exercise Name Biceps Curls Side bilateral Resistance 10# Equipment Used PVC 5 Sitting Exercise Name Hip Abduction Side bilateral Resistance Lv 3 Equipment Used T-band 3 Sitting Exercise Name HS Curls Side bilateral Resistance Lv 3 Equipment Used T-band 2 Sitting Exercise Name Marching Side bilateral Resistance 5# 1 Sitting Exercise Name LAQ Side bilateral Resistance 5# Standing Exercises 1 Standing Exercise Name Sit<->Stand Equipment Used // bars Reps/Minutes 3x5 Gait Training Gait Activity 1 Description Pre-gait Fwd/Bkwd weight shifting Level of Assistance min assist Surface parallel bars Neuro Re-Education Treatment Coordination Activities 1 Details Cone activities Equipment Cones Speed 5# ankle weight each ankle Comments Using feet to knock over cones for coordination training/ neuromuscular re-education PT-OP-T Assessment and Plan Start: 01/02/20 17:36 Freq: Status: Active Protocol: Document 06/06/20 16:00 DCW (Rec: 06/06/20 16:46 DCW [id number]) Physical Therapy Assessment Impairments Impairments Activity Tolerance,Balance, Functional Activities, Functional Mobility,Gait,Pain, Posture,ROM,Soft Tissue Mobility,Strength,Transfers Goals Four Impairment Multiple falls at care center Senior Care Goal (LTG) Pt to report no falls over the course of two months LTG Duration Met Three Impairment Transfers Senior Care Goal (LTG) Pt to perform stand-pivot transfer CGA with FWW LTG Duration 06/21/20 Two Impairment Pt unable to tolerate standing for more than 10 seconds Host/Hostess Goal (LTG) Pt to stand using FWW /c Min Ax1 for 90 seconds LTG Duration 06/21/20 One Impairment LE weakness Senior Care Goal (LTG) Ankle and knee MMT to to 3+/5 bilaterally Hip MMT to 4/5 bilaterally LTG Duration 06/21/20 Assessment Summary Assessment Pt continues streak of doing well recently, no complaints, showed slightly more control with standing weight shifts, still leads to knee buckling fairly quickly. Physical Therapy Plan Frequency and Duration Frequency of Treatment 1x/Week Duration of Treatment 12 weeks Plan of Care Start Date 03/29/20 Plan of Care End Date 06/21/20 Therapeutic Interventions Therapeutic Interventions Aquatic Therapy,Balance Training,Coordination Training ,Gait Training,Home Exercise Program,Joint Mobilizations, Manual Therapy,Neuromuscular Re-education,Patient/Caregiver Education,Self-Care/Home Management,Soft Tissue Mobilization,Therapeutic Activities,Therapeutic Exercises,Wheelchair Management Next Visit Focus/Plan Next Note Type Treatment Note Next Visit Plan standing with fWW, transfer training, increased activity tolerance
--- NOTE | 2020-06-28 16:49 | PT.OTN ---
Current Diagnoses Multiple sclerosis (06/28/20) Pain in left knee (06/28/20) Pain in left ankle and joints of left foot (06/28/20) Weakness (06/28/20) Other fatigue (06/28/20) Physical Therapy Treatment Note PT-OP-A Visit Information Start: 01/02/20 17:36 Freq: Status: Active Protocol: Document 06/28/20 16:00 DCW (Rec: 06/28/20 16:48 DCW [id number]) Out-Patient Physical Therapy Visit Information Visit Information Visit Type Progress Note Visit Start Time 16:00 Visit Stop Time 16:45 Total Visit Minutes 45 Visit Number 20 Number of FURNITURE DUSTER Visits 0 Evaluation Information Evaluation Date 01/02/20 PT-OP-B Current Condition Start: 01/02/20 17:36 Freq: Status: Active Protocol: Document 01/02/20 16:45 DCW (Rec: 01/02/20 18:00 DCW [id number]) Current Condition History of Current Condition Onset Date Multi-year history Current Complaints MS, fatigue, weakness, L knee pain, L ankle pain History of Current Condition Pt is a 64 year old female with a long-standing history of Multiple Sclerosis. Pt currently mobilizes in her manual wheelchair, and lives at a local care center. Pt has a long-standing history of Physical Therapy off and on at this facility over the past six years, and was working with PT on ambulation, strengthening, and transfers prior to the Covid-19 shut- down, but pt was discharged after her care facility had a mandatory shut-down, and pt was unable to attend physical therapy for ~3 months. Over this time, pt unfortunately spent most of her time lying in bed, which got even worse after she suffered multiple falls when trying to transfer, resulting in a sore left knee and ankle, and an overall refusal to do anything out of bed. Pt reports extreme pain when doing anything in standing, and she feels she has gotten substantially weaker since her last PT session. Pt's sister and [id number] also attended her session today, and report they are trying to get her in for an Ortho consult, and just left a message hoping to schedule an appointment earlier today. Prior Treatments and Tests Prior history of PT Knee x-ray: IMPRESSION: Moderate medial compartment degenerative knee joint osteoarthritis, no fracture found. If unusual symptoms persist followup by MR or delayed plain film imaging may be warranted. per Chauncey Dia M.D. on 12/01/2019 Ankle x-ray: IMPRESSION: No acute trauma found. Exostosis and chronic appearing accessory ossicle or old avulsion fragment as noted. per Chauncey Dia M.D. on Future Testing and Treatments Planned Possible MRI, Ortho consult Treatment Goals Patient/Caregiver Goals Pt wants to transfer more safely PT-OP-C Subjective Start: 01/02/20 17:36 Freq: Status: Active Protocol: Document 06/28/20 16:00 DCW (Rec: 06/28/20 16:48 DCW [id number]) OP-PT Subjective Patient Comments Patient Comments Pt notes she's doing alright today. PT-OP-F Manual Assessment Start: 01/02/20 17:36 Freq: Status: Active Protocol: Document 01/02/20 16:45 DCW (Rec: 01/02/20 18:00 DCW [id number]) Manual Assessments Joint Mobility Assessment Joint Mobility Assessment Left knee laxity and pain with valgus force PT-OP-G Mobility & Gait Start: 01/02/20 17:36 Freq: Status: Active Protocol: Document 03/29/20 16:00 DCW (Rec: 03/29/20 17:05 DCW [id number]) OP Mobility Evaluation Transfers Sit to Stand Min Ax1 in // bars, verbal cues for hand placement OP Gait Assessment Factors Limiting Gait Function Factors Limiting Gait Function Abnormal Tonal Influences, Decreased Activity Tolerance, Decreased Strength,Difficulty Following Directions, Incoordination,Limited Range of Motion,Pain,Poor Balance, Poor Safety Awareness Comments Gait Comments Unable to perform gait activities. Improved pre-gait weight-shift in // bars PT-OP-L Special Tests Start: 01/02/20 17:36 Freq: Status: Active Protocol: Document 01/02/20 16:45 DCW (Rec: 01/02/20 18:00 DCW [id number]) Special Tests Knee Special Tests Kin Test Test Results Positive left Comments Performed in sitting Posterior Draw Test Results Negative Anterior Draw Test Results Negative Varus- 25 Degrees Test Results Negative Varus- 0 Degrees Test Results Negative Valgus- 25 Degrees Test Results Positive left Valgus- 0 Degrees Test Results Positive left PT-OP-M Strength Start: 06/22/20 17:36 Freq: Status: Active Protocol: Document 03/29/20 16:00 DCW (Rec: 03/29/20 17:05 DCW [id number]) Hip Strength Hip Manual Muscle Testing Right Flexion (L2) 4 Good Abduction 4 Good Adduction 4 Good Left Flexion (L2) 4- Good- Abduction 3+ Fair+ Adduction 4- Good- Knee Strength Knee Manual Muscle Testing Right Flexion (S2) 4+ Good+ Extension (L3) 4+ Good+ Left Flexion (S2) 3- Fair- Extension (L3) 2+ Poor+ Ankle/Foot Strength Ankle and Foot Manual Muscle Testing Right Dorsiflexion (L4) 4- Good- Plantarflexion (S1) 3- Fair- Inversion 4 Good Eversion (S1) 4 Good Left Dorsiflexion (L4) 4- Good- Plantarflexion (S1) 3- Fair- Inversion 3- Fair- Eversion (S1) 3- Fair- PT-OP-Q Treatments Start: 01/02/20 17:36 Freq: Status: Active Protocol: Document 06/28/20 16:00 DCW (Rec: 06/28/20 16:48 DCW [id number]) Cardio Equipment Upper Body Ergometer (UBE) Duration (Minutes) 6 Seat Position in Wheelchair Height 2.5 Therapeutic Exercises Sitting Exercises 9 Sitting Exercise Name Hip Adduction Ball Squeeze Side bilateral 8 Sitting Exercise Name Balloon Volley Resistance 2# 7 Sitting Exercise Name Overhead Press Side bilateral Resistance 10# Equipment Used PVC 6 Sitting Exercise Name Biceps Curls Side bilateral Resistance 10# Equipment Used PVC 5 Sitting Exercise Name Hip Abduction Side bilateral Resistance Lv 3 Equipment Used T-band 3 Sitting Exercise Name HS Curls Side bilateral Resistance Lv 3 Equipment Used T-band 2 Sitting Exercise Name Marching Side bilateral Resistance 5# 1 Sitting Exercise Name LAQ Side bilateral Resistance 5# Standing Exercises 1 Standing Exercise Name Sit<->Stand Equipment Used // bars Reps/Minutes 3x5 Neuro Re-Education Treatment Coordination Activities 1 Details Cone activities Equipment Cones Speed 5# ankle weight each ankle Comments Using feet to knock over cones for coordination training/ neuromuscular re-education PT-OP-T Assessment and Plan Start: 01/02/20 17:36 Freq: Status: Active Protocol: Document 06/28/20 16:00 DCW (Rec: 06/28/20 16:48 DCW [id number]) Physical Therapy Assessment Impairments Impairments Activity Tolerance,Balance, Functional Activities, Functional Mobility,Gait,Pain, Posture,ROM,Soft Tissue Mobility,Strength,Transfers Goals Four Impairment Multiple falls at care center Table Games Supervisor Goal (LTG) Pt to report no falls over the course of two months LTG Duration Met Three Impairment Transfers Table Games Supervisor Goal (LTG) Pt to perform stand-pivot transfer CGA with FWW LTG Duration 09/26/20 Two Impairment Pt unable to tolerate standing for more than 10 seconds Assisted Goal (LTG) Pt to stand using FWW /c Min Ax1 for 90 seconds LTG Duration 09/26/20 One Impairment LE weakness Table Games Supervisor Goal (LTG) Ankle and knee MMT to to 3+/5 bilaterally Hip MMT to 4/5 bilaterally LTG Duration 09/26/20 Assessment Summary Assessment Pt largely unchanged since last reassessment. Pre-gait weight shift not improving much, but is a little more controlled. Activity tolerance is improving, able to complete today's session with no requests for breaks. Physical Therapy Plan Frequency and Duration Frequency of Treatment 1x/Week Duration of Treatment 12 weeks Plan of Care Start Date 06/28/20 Plan of Care End Date 09/20/20 Therapeutic Interventions Therapeutic Interventions Aquatic Therapy,Balance Training,Coordination Training ,Gait Training,Home Exercise Program,Joint Mobilizations, Manual Therapy,Neuromuscular Re-education,Patient/Caregiver Education,Self-Care/Home Management,Soft Tissue Mobilization,Therapeutic Activities,Therapeutic Exercises,Wheelchair Management Next Visit Focus/Plan Next Note Type Treatment Note Next Visit Plan standing with fWW, transfer training, increased activity tolerance
--- NOTE | 2020-06-28 16:49 | PT.OPPOC ---
Physical, Occupational & Speech Therapy At [facility] Current Diagnoses Multiple sclerosis (06/28/20) Pain in left knee (06/28/20) Pain in left ankle and joints of left foot (06/28/20) Weakness (06/28/20) Other fatigue (06/28/20) Visit Care Team Role Provider Type JJ Escudero Attending Provider Advanced Strip Presser Primary Care Provider Referring Provider Specialty: Family Practice Address: [address] [place] [address], [id number] Email: [email or web address] Plan Of Care PT-OP-T Assessment and Plan Start: 01/02/20 17:36 Freq: Status: Active Protocol: Document 06/28/20 16:00 DCW (Rec: 06/28/20 16:48 DCW [id number]) Physical Therapy Assessment Impairments Impairments Activity Tolerance,Balance, Functional Activities, Functional Mobility,Gait,Pain, Posture,ROM,Soft Tissue Mobility,Strength,Transfers Goals Four Impairment Multiple falls at care center [facility]pc Goal (LTG) Pt to report no falls over the course of two months LTG Duration Met Three Impairment Transfers [facility] Goal (LTG) Pt to perform stand-pivot transfer CGA with FWW LTG Duration 09/26/20 Two Impairment Pt unable to tolerate standing for more than 10 seconds Fpc Goal (LTG) Pt to stand using FWW /c Min Ax1 for 90 seconds LTG Duration 09/26/20 One Impairment LE weakness [facility]pc Goal (LTG) Ankle and knee MMT to to 3+/5 bilaterally Hip MMT to 4/5 bilaterally LTG Duration 09/26/20 Assessment Summary Assessment Pt largely unchanged since last reassessment. Pre-gait weight shift not improving much, but is a little more controlled. Activity tolerance is improving, able to complete today's session with no requests for breaks. Physical Therapy Plan Frequency and Duration Frequency of Treatment 1x/Week Duration of Treatment 12 weeks Plan of Care Start Date 06/28/20 Plan of Care End Date 09/20/20 Therapeutic Interventions Therapeutic Interventions Aquatic Therapy,Balance Training,Coordination Training ,Gait Training,Home Exercise Program,Joint Mobilizations, Manual Therapy,Neuromuscular Re-education,Patient/Caregiver Education,Self-Care/Home Management,Soft Tissue Mobilization,Therapeutic Activities,Therapeutic Exercises,Wheelchair Management Next Visit Focus/Plan Next Note Type Treatment Note Next Visit Plan standing with FWW, transfer training, increased activity tolerance Plan of Care Dates Plan of Care Start Date 06/28/20 Plan of Care End Date 09/20/20 Electronically Signed by: Daryl Robertson, PT 06/28/20 [id number] Please Sign and Return: I have reviewed this Plan of Care and certify that the skilled therapy services above are required to meet the patient?s needs. Physician Signature Date Printed Name and Credentials Clinical Instructor Signature Printed Name and Credentials
--- NOTE | 2020-06-28 16:50 | PT.OPPOC ---
Physical, Occupational & Speech Therapy At [facility] Current Diagnoses Multiple sclerosis (06/28/20) Pain in left knee (06/28/20) Pain in left ankle and joints of left foot (06/28/20) Weakness (06/28/20) Other fatigue (06/28/20) Visit Care Team Role Provider Type JJ Escudero Attending Provider Advanced Ice Delivery Driver Primary Care Provider Referring Provider Specialty: Family Practice Address: [address] [place] [address], [id number] Email: [email or web address] Plan Of Care PT-OP-T Assessment and Plan Start: 01/02/20 17:36 Freq: Status: Active Protocol: Document 06/28/20 16:00 DCW (Rec: 06/28/20 16:48 DCW [id number]) Physical Therapy Assessment Impairments Impairments Activity Tolerance,Balance, Functional Activities, Functional Mobility,Gait,Pain, Posture,ROM,Soft Tissue Mobility,Strength,Transfers Goals Four Impairment Multiple falls at care center [facility] Goal (LTG) Pt to report no falls over the course of two months LTG Duration Met Three Impairment Transfers [facility] Goal (LTG) Pt to perform stand-pivot transfer CGA with FWW LTG Duration 09/26/20 Two Impairment Pt unable to tolerate standing for more than 10 seconds [facility]dc Goal (LTG) Pt to stand using FWW /c Min Ax1 for 90 seconds LTG Duration 09/26/20 One Impairment LE weakness [facility] Goal (LTG) Ankle and knee MMT to to 3+/5 bilaterally Hip MMT to 4/5 bilaterally LTG Duration 09/26/20 Assessment Summary Assessment Pt largely unchanged since last reassessment. Pre-gait weight shift not improving much, but is a little more controlled. Activity tolerance is improving, able to complete today's session with no requests for breaks. Physical Therapy Plan Frequency and Duration Frequency of Treatment 1x/Week Duration of Treatment 12 weeks Plan of Care Start Date 06/28/20 Plan of Care End Date 09/20/20 Therapeutic Interventions Therapeutic Interventions Aquatic Therapy,Balance Training,Coordination Training ,Gait Training,Home Exercise Program,Joint Mobilizations, Manual Therapy,Neuromuscular Re-education,Patient/Caregiver Education,Self-Care/Home Management,Soft Tissue Mobilization,Therapeutic Activities,Therapeutic Exercises,Wheelchair Management Next Visit Focus/Plan Next Note Type Treatment Note Next Visit Plan standing with fWW, transfer training, increased activity tolerance Plan of Care Dates Plan of Care Start Date 06/28/20 Plan of Care End Date 09/20/20 Electronically Signed by: Daryl Robertson, PT 06/28/20 [id number] Please Sign and Return: I have reviewed this Plan of Care and certify that the skilled therapy services above are required to meet the patient?s needs. Physician Signature Date Printed Name and Credentials Clinical Instructor Signature Printed Name and Credentials
--- NOTE | 2020-07-04 16:46 | PT.OTN ---
Current Diagnoses Multiple sclerosis (07/04/20) Pain in left knee (07/04/20) Pain in left ankle and joints of left foot (07/04/20) Weakness (07/04/20) Other fatigue (07/04/20) Physical Therapy Treatment Note PT-OP-A Visit Information Start: 01/02/20 17:36 Freq: Status: Active Protocol: Document 07/04/20 16:00 DCW (Rec: 07/04/20 16:46 DCW [id number]) Out-Patient Physical Therapy Visit Information Visit Information Visit Type Treatment Note Visit Start Time 16:00 Visit Stop Time 16:45 Total Visit Minutes 45 Visit Number 21 Number of METER SUPERVISOR Visits 0 Evaluation Information Evaluation Date 01/02/20 PT-OP-B Current Condition Start: 01/02/20 17:36 Freq: Status: Active Protocol: Document 01/02/20 16:45 DCW (Rec: 01/02/20 18:00 DCW [id number]) Current Condition History of Current Condition Onset Date Multi-year history Current Complaints MS, fatigue, weakness, L knee pain, L ankle pain History of Current Condition Pt is a 64 year old female with a long-standing history of Multiple Sclerosis. Pt currently mobilizes in her manual wheelchair, and lives at a local care center. Pt has a long-standing history of Physical Therapy off and on at this facility over the past six years, and was working with PT on ambulation, strengthening, and transfers prior to the Covid-19 shut- down, but pt was discharged after her care facility had a mandatory shut-down, and pt was unable to attend physical therapy for ~3 months. Over this time, pt unfortunately spent most of her time lying in bed, which got even worse after she suffered multiple falls when trying to transfer, resulting in a sore left knee and ankle, and an overall refusal to do anything out of bed. Pt reports extreme pain when doing anything in standing, and she feels she has gotten substantially weaker since her last PT session. Pt's sister and [id number] also attended her session today, and report they are trying to get her in for an Ortho consult, and just left a message hoping to schedule an appointment earlier today. Prior Treatments and Tests Prior history of PT Knee x-ray: IMPRESSION: Moderate medial compartment degenerative knee joint osteoarthritis, no fracture found. If unusual symptoms persist followup by MR or delayed plain film imaging may be warranted. per Chauncey Dia M.D. on 12/01/2019 Ankle x-ray: IMPRESSION: No acute trauma found. Exostosis and chronic appearing accessory ossicle or old avulsion fragment as noted. per Chauncey Dia M.D. on Future Testing and Treatments Planned Possible MRI, Ortho consult Treatment Goals Patient/Caregiver Goals Pt wants to transfer more safely PT-OP-C Subjective Start: 01/02/20 17:36 Freq: Status: Active Protocol: Document 07/04/20 16:00 DCW (Rec: 07/04/20 16:46 DCW [id number]) OP-PT Subjective Patient Comments Patient Comments I'm fine, but I'm cold. PT-OP-F Manual Assessment Start: 01/02/20 17:36 Freq: Status: Active Protocol: Document 01/02/20 16:45 DCW (Rec: 01/02/20 18:00 DCW [id number]) Manual Assessments Joint Mobility Assessment Joint Mobility Assessment Left knee laxity and pain with valgus force PT-OP-G Mobility & Gait Start: 01/02/20 17:36 Freq: Status: Active Protocol: Document 03/29/20 16:00 DCW (Rec: 03/29/20 17:05 DCW [id number]) OP Mobility Evaluation Transfers Sit to Stand Min Ax1 in // bars, verbal cues for hand placement OP Gait Assessment Factors Limiting Gait Function Factors Limiting Gait Function Abnormal Tonal Influences, Decreased Activity Tolerance, Decreased Strength,Difficulty Following Directions, Incoordination,Limited Range of Motion,Pain,Poor Balance, Poor Safety Awareness Comments Gait Comments Unable to perform gait activities. Improved pre-gait weight-shift in // bars PT-OP-L Special Tests Start: 01/02/20 17:36 Freq: Status: Active Protocol: Document 01/02/20 16:45 DCW (Rec: 01/02/20 18:00 DCW [id number]) Special Tests Knee Special Tests Kin Test Test Results Positive left Comments Performed in sitting Posterior Draw Test Results Negative Anterior Draw Test Results Negative Varus- 25 Degrees Test Results Negative Varus- 0 Degrees Test Results Negative Valgus- 25 Degrees Test Results Positive left Valgus- 0 Degrees Test Results Positive left PT-OP-M Strength Start: 06/22/20 17:36 Freq: Status: Active Protocol: Document 03/29/20 16:00 DCW (Rec: 03/29/20 17:05 DCW [id number]) Hip Strength Hip Manual Muscle Testing Right Flexion (L2) 4 Good Abduction 4 Good Adduction 4 Good Left Flexion (L2) 4- Good- Abduction 3+ Fair+ Adduction 4- Good- Knee Strength Knee Manual Muscle Testing Right Flexion (S2) 4+ Good+ Extension (L3) 4+ Good+ Left Flexion (S2) 3- Fair- Extension (L3) 2+ Poor+ Ankle/Foot Strength Ankle and Foot Manual Muscle Testing Right Dorsiflexion (L4) 4- Good- Plantarflexion (S1) 3- Fair- Inversion 4 Good Eversion (S1) 4 Good Left Dorsiflexion (L4) 4- Good- Plantarflexion (S1) 3- Fair- Inversion 3- Fair- Eversion (S1) 3- Fair- PT-OP-Q Treatments Start: 01/02/20 17:36 Freq: Status: Active Protocol: Document 07/04/20 16:00 DCW (Rec: 07/04/20 16:46 DCW [id number]) Cardio Equipment Upper Body Ergometer (UBE) Duration (Minutes) 6 Seat Position in Wheelchair Height 2.5 Therapeutic Exercises Sitting Exercises 9 Sitting Exercise Name Hip Adduction Ball Squeeze Side bilateral 8 Sitting Exercise Name Balloon Volley Resistance 2# 7 Sitting Exercise Name Overhead Press Side bilateral Resistance 10# Equipment Used PVC 6 Sitting Exercise Name Biceps Curls Side bilateral Resistance 10# Equipment Used PVC 5 Sitting Exercise Name Hip Abduction Side bilateral Resistance Lv 3 Equipment Used T-band 4 Sitting Exercise Name Ankle Dorsiflexion Side bilateral Resistance Lv 2 Equipment Used T-band 3 Sitting Exercise Name HS Curls Side bilateral Resistance Lv 3 Equipment Used T-band 2 Sitting Exercise Name Marching Side bilateral Resistance 5# 1 Sitting Exercise Name LAQ Side bilateral Resistance 5# Standing Exercises 1 Standing Exercise Name Sit<->Stand Equipment Used // bars Reps/Minutes 3x5 Gait Training Gait Activity 1 Description Pre-gait Fwd/Bkwd weight shifting Level of Assistance min assist Surface parallel bars PT-OP-T Assessment and Plan Start: 01/02/20 17:36 Freq: Status: Active Protocol: Document 07/04/20 16:00 DCW (Rec: 12/23/20 16:46 DCW [id number]) Physical Therapy Assessment Impairments Impairments Activity Tolerance,Balance, Functional Activities, Functional Mobility,Gait,Pain, Posture,ROM,Soft Tissue Mobility,Strength,Transfers Goals Four Impairment Multiple falls at care center Residential Goal (LTG) Pt to report no falls over the course of two months LTG Duration Met Three Impairment Transfers [place] Goal (LTG) Pt to perform stand-pivot transfer CGA with FWW LTG Duration 09/26/20 Two Impairment Pt unable to tolerate standing for more than 10 seconds Residential Goal (LTG) Pt to stand using FWW /c Min Ax1 for 90 seconds LTG Duration 09/26/20 One Impairment LE weakness Residential Goal (LTG) Ankle and knee MMT to to 3+/5 bilaterally Hip MMT to 4/5 bilaterally LTG Duration 09/26/20 Assessment Summary Assessment During today's pre-gait weight shift, pt surprisingly attempted to try to walk in the // bars, was able to take two steps, but then her knees gave out and she required Max Ax1 to maintain balance until her w/c could be placed behind her. Other than that, pt did very well today with her sit<- >stands, some of her best mobility since her most recent evaluation. Physical Therapy Plan Frequency and Duration Frequency of Treatment 1x/Week Duration of Treatment 12 weeks Plan of Care Start Date 06/28/20 Plan of Care End Date 09/20/20 Therapeutic Interventions Therapeutic Interventions Aquatic Therapy,Balance Training,Coordination Training ,Gait Training,Home Exercise Program,Joint Mobilizations, Manual Therapy,Neuromuscular Re-education,Patient/Caregiver Education,Self-Care/Home Management,Soft Tissue Mobilization,Therapeutic Activities,Therapeutic Exercises,Wheelchair Management Next Visit Focus/Plan Next Note Type Treatment Note Next Visit Plan standing with fWW, transfer training, increased activity tolerance
--- NOTE | 2020-08-09 16:42 | PT.OTN ---
Current Diagnoses Multiple sclerosis (08/09/20) Pain in left knee (08/09/20) Pain in left ankle and joints of left foot (08/09/20) Weakness (08/09/20) Other fatigue (08/09/20) Physical Therapy Treatment Note PT-OP-A Visit Information Start: 01/02/20 17:36 Freq: Status: Active Protocol: Document 08/09/20 16:00 DCW (Rec: 08/09/20 16:40 DCW [id number]) Out-Patient Physical Therapy Visit Information Visit Information Visit Type Treatment Note Visit Start Time 16:00 Visit Stop Time 16:45 Total Visit Minutes 45 Visit Number 21 Number of COMMERCIAL HVAC TECHNICIAN Visits 0 Evaluation Information Evaluation Date 01/02/20 PT-OP-B Current Condition Start: 01/02/20 17:36 Freq: Status: Active Protocol: Document 01/02/20 16:45 DCW (Rec: 01/02/20 18:00 DCW [id number]) Current Condition History of Current Condition Onset Date Multi-year history Current Complaints MS, fatigue, weakness, L knee pain, L ankle pain History of Current Condition Pt is a 64 year old female with a long-standing history of Multiple Sclerosis. Pt currently mobilizes in her manual wheelchair, and lives at a local care center. Pt has a long-standing history of Physical Therapy off and on at this facility over the past six years, and was working with PT on ambulation, strengthening, and transfers prior to the Covid-19 shut- down, but pt was discharged after her care facility had a mandatory shut-down, and pt was unable to attend physical therapy for ~3 months. Over this time, pt unfortunately spent most of her time lying in bed, which got even worse after she suffered multiple falls when trying to transfer, resulting in a sore left knee and ankle, and an overall refusal to do anything out of bed. Pt reports extreme pain when doing anything in standing, and she feels she has gotten substantially weaker since her last PT session. Pt's sister and [id number] also attended her session today, and report they are trying to get her in for an Ortho consult, and just left a message hoping to schedule an appointment earlier today. Prior Treatments and Tests Prior history of PT Knee x-ray: IMPRESSION: Moderate medial compartment degenerative knee joint osteoarthritis, no fracture found. If unusual symptoms persist followup by MR or delayed plain film imaging may be warranted. per Chauncey Dia M.D. on 12/01/2019 Ankle x-ray: IMPRESSION: No acute trauma found. Exostosis and chronic appearing accessory ossicle or old avulsion fragment as noted. per Chauncey Dia M.D. on Future Testing and Treatments Planned Possible MRI, Ortho consult Treatment Goals Patient/Caregiver Goals Pt wants to transfer more safely PT-OP-C Subjective Start: 01/02/20 17:36 Freq: Status: Active Protocol: Document 08/09/20 16:00 DCW (Rec: 08/09/20 16:40 DCW [id number]) OP-PT Subjective Patient Comments Patient Comments Pt reports she is doing well today. PT-OP-F Manual Assessment Start: 01/02/20 17:36 Freq: Status: Active Protocol: Document 01/02/20 16:45 DCW (Rec: 01/02/20 18:00 DCW [id number]) Manual Assessments Joint Mobility Assessment Joint Mobility Assessment Left knee laxity and pain with valgus force PT-OP-G Mobility & Gait Start: 01/02/20 17:36 Freq: Status: Active Protocol: Document 03/29/20 16:00 DCW (Rec: 03/29/20 17:05 DCW [id number]) OP Mobility Evaluation Transfers Sit to Stand Min Ax1 in // bars, verbal cues for hand placement OP Gait Assessment Factors Limiting Gait Function Factors Limiting Gait Function Abnormal Tonal Influences, Decreased Activity Tolerance, Decreased Strength,Difficulty Following Directions, Incoordination,Limited Range of Motion,Pain,Poor Balance, Poor Safety Awareness Comments Gait Comments Unable to perform gait activities. Improved pre-gait weight-shift in // bars PT-OP-L Special Tests Start: 01/02/20 17:36 Freq: Status: Active Protocol: Document 01/02/20 16:45 DCW (Rec: 01/02/20 18:00 DCW [id number]) Special Tests Knee Special Tests Kin Test Test Results Positive left Comments Performed in sitting Posterior Draw Test Results Negative Anterior Draw Test Results Negative Varus- 25 Degrees Test Results Negative Varus- 0 Degrees Test Results Negative Valgus- 25 Degrees Test Results Positive left Valgus- 0 Degrees Test Results Positive left PT-OP-M Strength Start: 01/02/20 17:36 Freq: Status: Active Protocol: Document 03/29/20 16:00 DCW (Rec: 03/29/20 17:05 DCW [id number]) Hip Strength Hip Manual Muscle Testing Right Flexion (L2) 4 Good Abduction 4 Good Adduction 4 Good Left Flexion (L2) 4- Good- Abduction 3+ Fair+ Adduction 4- Good- Knee Strength Knee Manual Muscle Testing Right Flexion (S2) 4+ Good+ Extension (L3) 4+ Good+ Left Flexion (S2) 3- Fair- Extension (L3) 2+ Poor+ Ankle/Foot Strength Ankle and Foot Manual Muscle Testing Right Dorsiflexion (L4) 4- Good- Plantarflexion (S1) 3- Fair- Inversion 4 Good Eversion (S1) 4 Good Left Dorsiflexion (L4) 4- Good- Plantarflexion (S1) 3- Fair- Inversion 3- Fair- Eversion (S1) 3- Fair- PT-OP-Q Treatments Start: 01/02/20 17:36 Freq: Status: Active Protocol: Document 08/09/20 16:00 DCW (Rec: 08/09/20 16:40 DCW [id number]) Cardio Equipment Upper Body Ergometer (UBE) Duration (Minutes) 6 Seat Position in Wheelchair Height 2.5 Therapeutic Exercises Sitting Exercises 9 Sitting Exercise Name Hip Adduction Ball Squeeze Side bilateral 8 Sitting Exercise Name Balloon Volley Resistance 2# 7 Sitting Exercise Name Overhead Press Side bilateral Resistance 10# Equipment Used PVC 6 Sitting Exercise Name Biceps Curls Side bilateral Resistance 10# Equipment Used PVC 5 Sitting Exercise Name Hip Abduction Side bilateral Resistance Lv 3 Equipment Used T-band 4 Sitting Exercise Name Ankle DF/PF Side bilateral Resistance Lv 3 Equipment Used T-band 3 Sitting Exercise Name HS Curls Side bilateral Resistance Lv 3 Equipment Used T-band 2 Sitting Exercise Name Marching Side bilateral Resistance 5# 1 Sitting Exercise Name LAQ Side bilateral Resistance 5# Standing Exercises 1 Standing Exercise Name Sit<->Stand Equipment Used // bars Reps/Minutes 3x5 Comments Mod-Max Ax1 PT-OP-T Assessment and Plan Start: 01/02/20 17:36 Freq: Status: Active Protocol: Document 08/09/20 16:00 DCW (Rec: 08/09/20 16:40 DCW [id number]) Physical Therapy Assessment Impairments Impairments Activity Tolerance,Balance, Functional Activities, Functional Mobility,Gait,Pain, Posture,ROM,Soft Tissue Mobility,Strength,Transfers Goals Four Impairment Multiple falls at care center Supply Chain Intern Goal (LTG) Pt to report no falls over the course of two months LTG Duration Met Three Impairment Transfers Prison Goal (LTG) Pt to perform stand-pivot transfer CGA with FWW LTG Duration 09/26/20 Two Impairment Pt unable to tolerate standing for more than 10 seconds Prison Goal (LTG) Pt to stand using FWW /c Min Ax1 for 90 seconds LTG Duration 09/26/20 One Impairment LE weakness Prison Goal (LTG) Ankle and knee MMT to to 3+/5 bilaterally Hip MMT to 4/5 bilaterally LTG Duration 09/26/20 Assessment Summary Assessment Significant difficulty with sit<->stand today, reports she is doing fine with them at her place, but doesn't know why they don't work here. Physical Therapy Plan Frequency and Duration Frequency of Treatment 1x/Week Duration of Treatment 12 weeks Plan of Care Start Date 06/28/20 Plan of Care End Date 09/20/20 Therapeutic Interventions Therapeutic Interventions Aquatic Therapy,Balance Training,Coordination Training ,Gait Training,Home Exercise Program,Joint Mobilizations, Manual Therapy,Neuromuscular Re-education,Patient/Caregiver Education,Self-Care/Home Management,Soft Tissue Mobilization,Therapeutic Activities,Therapeutic Exercises,Wheelchair Management Next Visit Focus/Plan Next Note Type Treatment Note Next Visit Plan standing with fWW, transfer training, increased activity tolerance
--- NOTE | 2020-08-15 16:46 | PT.OTN ---
Current Diagnoses Multiple sclerosis (08/15/20) Pain in left knee (08/15/20) Pain in left ankle and joints of left foot (08/15/20) Weakness (08/15/20) Other fatigue (08/15/20) Physical Therapy Treatment Note PT-OP-A Visit Information Start: 01/02/20 17:36 Freq: Status: Active Protocol: Document 08/15/20 16:01 DCW (Rec: 08/15/20 16:46 DCW [id number]) Out-Patient Physical Therapy Visit Information Visit Information Visit Type Treatment Note Visit Start Time 16:01 Visit Stop Time 16:45 Total Visit Minutes 44 Visit Number 23 Number of ORNAMENTAL BRONZE WORKER Visits 0 Evaluation Information Evaluation Date 01/02/20 PT-OP-B Current Condition Start: 01/02/20 17:36 Freq: Status: Active Protocol: Document 01/02/20 16:45 DCW (Rec: 01/02/20 18:00 DCW [id number]) Current Condition History of Current Condition Onset Date Multi-year history Current Complaints MS, fatigue, weakness, L knee pain, L ankle pain History of Current Condition Pt is a 64 year old female with a long-standing history of Multiple Sclerosis. Pt currently mobilizes in her manual wheelchair, and lives at a local care center. Pt has a long-standing history of Physical Therapy off and on at this facility over the past six years, and was working with PT on ambulation, strengthening, and transfers prior to the Covid-19 shut- down, but pt was discharged after her care facility had a mandatory shut-down, and pt was unable to attend physical therapy for ~3 months. Over this time, pt unfortunately spent most of her time lying in bed, which got even worse after she suffered multiple falls when trying to transfer, resulting in a sore left knee and ankle, and an overall refusal to do anything out of bed. Pt reports extreme pain when doing anything in standing, and she feels she has gotten substantially weaker since her last PT session. Pt's sister and [id number] also attended her session today, and report they are trying to get her in for an Ortho consult, and just left a message hoping to schedule an appointment earlier today. Prior Treatments and Tests Prior history of PT Knee x-ray: IMPRESSION: Moderate medial compartment degenerative knee joint osteoarthritis, no fracture found. If unusual symptoms persist followup by MR or delayed plain film imaging may be warranted. per Chauncey Dia M.D. on 12/01/2019 Ankle x-ray: IMPRESSION: No acute trauma found. Exostosis and chronic appearing accessory ossicle or old avulsion fragment as noted. per Chauncey Dia M.D. on Future Testing and Treatments Planned Possible MRI, Ortho consult Treatment Goals Patient/Caregiver Goals Pt wants to transfer more safely PT-OP-C Subjective Start: 01/02/20 17:36 Freq: Status: Active Protocol: Document 08/15/20 16:01 DCW (Rec: 08/15/20 16:46 DCW [id number]) OP-PT Subjective Patient Comments Patient Comments Pt tired today. Pt notes she received her second Covid vaccination earlier today, and overall has not noticed any symptoms yet. PT-OP-F Manual Assessment Start: 01/02/20 17:36 Freq: Status: Active Protocol: Document 01/02/20 16:45 DCW (Rec: 01/02/20 18:00 DCW [id number]) Manual Assessments Joint Mobility Assessment Joint Mobility Assessment Left knee laxity and pain with valgus force PT-OP-G Mobility & Gait Start: 01/02/20 17:36 Freq: Status: Active Protocol: Document 03/29/20 16:00 DCW (Rec: 03/29/20 17:05 DCW [id number]) OP Mobility Evaluation Transfers Sit to Stand Min Ax1 in // bars, verbal cues for hand placement OP Gait Assessment Factors Limiting Gait Function Factors Limiting Gait Function Abnormal Tonal Influences, Decreased Activity Tolerance, Decreased Strength,Difficulty Following Directions, Incoordination,Limited Range of Motion,Pain,Poor Balance, Poor Safety Awareness Comments Gait Comments Unable to perform gait activities. Improved pre-gait weight-shift in // bars PT-OP-L Special Tests Start: 01/02/20 17:36 Freq: Status: Active Protocol: Document 01/02/20 16:45 DCW (Rec: 01/02/20 18:00 DCW [id number]) Special Tests Knee Special Tests Kin Test Test Results Positive left Comments Performed in sitting Posterior Draw Test Results Negative Anterior Draw Test Results Negative Varus- 25 Degrees Test Results Negative Varus- 0 Degrees Test Results Negative Valgus- 25 Degrees Test Results Positive left Valgus- 0 Degrees Test Results Positive left PT-OP-M Strength Start: 01/02/20 17:36 Freq: Status: Active Protocol: Document 03/29/20 16:00 DCW (Rec: 03/29/20 17:05 DCW [id number]) Hip Strength Hip Manual Muscle Testing Right Flexion (L2) 4 Good Abduction 4 Good Adduction 4 Good Left Flexion (L2) 4- Good- Abduction 3+ Fair+ Adduction 4- Good- Knee Strength Knee Manual Muscle Testing Right Flexion (S2) 4+ Good+ Extension (L3) 4+ Good+ Left Flexion (S2) 3- Fair- Extension (L3) 2+ Poor+ Ankle/Foot Strength Ankle and Foot Manual Muscle Testing Right Dorsiflexion (L4) 4- Good- Plantarflexion (S1) 3- Fair- Inversion 4 Good Eversion (S1) 4 Good Left Dorsiflexion (L4) 4- Good- Plantarflexion (S1) 3- Fair- Inversion 3- Fair- Eversion (S1) 3- Fair- PT-OP-Q Treatments Start: 01/02/20 17:36 Freq: Status: Active Protocol: Document 08/15/20 16:01 DCW (Rec: 08/15/20 16:46 DCW [id number]) Cardio Equipment Upper Body Ergometer (UBE) Duration (Minutes) 6 Seat Position in Wheelchair Height 2.5 Therapeutic Exercises Sitting Exercises 8 Sitting Exercise Name Balloon Volley Resistance 2# 7 Sitting Exercise Name Overhead Press Side bilateral Resistance 10# Equipment Used PVC 6 Sitting Exercise Name Biceps Curls Side bilateral Resistance 10# Equipment Used PVC 5 Sitting Exercise Name Hip Abduction Side bilateral Resistance Lv 3 Equipment Used T-band 4 Sitting Exercise Name Ankle DF/PF Side bilateral Resistance Lv 3 Equipment Used T-band 3 Sitting Exercise Name HS Curls Side bilateral Resistance Lv 3 Equipment Used T-band 2 Sitting Exercise Name Marching Side bilateral Resistance 5# 1 Sitting Exercise Name LAQ Side bilateral Resistance 5# Standing Exercises 1 Standing Exercise Name Sit<->Stand Equipment Used // bars Reps/Minutes 3x5 Comments Mod-Max Ax1 PT-OP-T Assessment and Plan Start: 01/02/20 17:36 Freq: Status: Active Protocol: Document 08/15/20 16:01 DCW (Rec: 08/15/20 16:46 DCW [id number]) Physical Therapy Assessment Impairments Impairments Activity Tolerance,Balance, Functional Activities, Functional Mobility,Gait,Pain, Posture,ROM,Soft Tissue Mobility,Strength,Transfers Goals Four Impairment Multiple falls at care center Care Home Goal (LTG) Pt to report no falls over the course of two months LTG Duration Met Three Impairment Transfers Bartenders Goal (LTG) Pt to perform stand-pivot transfer CGA with FWW LTG Duration 09/26/20 Two Impairment Pt unable to tolerate standing for more than 10 seconds Care Home Goal (LTG) Pt to stand using FWW /c Min Ax1 for 90 seconds LTG Duration 09/26/20 One Impairment LE weakness Care Home Goal (LTG) Ankle and knee MMT to to 3+/5 bilaterally Hip MMT to 4/5 bilaterally LTG Duration 09/26/20 Assessment Summary Assessment For second visit in row, pt had significant difficulty with sit<->stand, showing decrease in functional mobility and declining strength in legs. Hopeful pt will return to her usual functional level next week. Physical Therapy Plan Frequency and Duration Frequency of Treatment 1x/Week Duration of Treatment 12 weeks Plan of Care Start Date 06/28/20 Plan of Care End Date 09/20/20 Therapeutic Interventions Therapeutic Interventions Aquatic Therapy,Balance Training,Coordination Training ,Gait Training,Home Exercise Program,Joint Mobilizations, Manual Therapy,Neuromuscular Re-education,Patient/Caregiver Education,Self-Care/Home Management,Soft Tissue Mobilization,Therapeutic Activities,Therapeutic Exercises,Wheelchair Management Next Visit Focus/Plan Next Note Type Treatment Note Next Visit Plan standing with fWW, transfer training, increased activity tolerance
--- NOTE | 2020-08-23 16:48 | PT.OTN ---
Current Diagnoses Multiple sclerosis (08/23/20) Pain in left knee (08/23/20) Pain in left ankle and joints of left foot (08/23/20) Weakness (08/23/20) Other fatigue (08/23/20) Physical Therapy Treatment Note PT-OP-A Visit Information Start: 01/02/20 17:36 Freq: Status: Active Protocol: Document 08/23/20 16:00 DCW (Rec: 08/23/20 16:48 DCW [id number]) Out-Patient Physical Therapy Visit Information Visit Information Visit Type Treatment Note Visit Start Time 16:00 Visit Stop Time 16:45 Total Visit Minutes 45 Visit Number 24 Number of CLOTH SHEARER Visits 0 Evaluation Information Evaluation Date 01/02/20 PT-OP-B Current Condition Start: 01/02/20 17:36 Freq: Status: Active Protocol: Document 01/02/20 16:45 DCW (Rec: 01/02/20 18:00 DCW [id number]) Current Condition History of Current Condition Onset Date Multi-year history Current Complaints MS, fatigue, weakness, L knee pain, L ankle pain History of Current Condition Pt is a 64 year old female with a long-standing history of Multiple Sclerosis. Pt currently mobilizes in her manual wheelchair, and lives at a local care center. Pt has a long-standing history of Physical Therapy off and on at this facility over the past six years, and was working with PT on ambulation, strengthening, and transfers prior to the Covid-19 shut- down, but pt was discharged after her care facility had a mandatory shut-down, and pt was unable to attend physical therapy for ~3 months. Over this time, pt unfortunately spent most of her time lying in bed, which got even worse after she suffered multiple falls when trying to transfer, resulting in a sore left knee and ankle, and an overall refusal to do anything out of bed. Pt reports extreme pain when doing anything in standing, and she feels she has gotten substantially weaker since her last PT session. Pt's sister and [id number] also attended her session today, and report they are trying to get her in for an Ortho consult, and just left a message hoping to schedule an appointment earlier today. Prior Treatments and Tests Prior history of PT Knee x-ray: IMPRESSION: Moderate medial compartment degenerative knee joint osteoarthritis, no fracture found. If unusual symptoms persist followup by MR or delayed plain film imaging may be warranted. per Chauncey Dia M.D. on 12/01/2019 Ankle x-ray: IMPRESSION: No acute trauma found. Exostosis and chronic appearing accessory ossicle or old avulsion fragment as noted. per Chauncey Dia M.D. on Future Testing and Treatments Planned Possible MRI, Ortho consult Treatment Goals Patient/Caregiver Goals Pt wants to transfer more safely PT-OP-C Subjective Start: 01/02/20 17:36 Freq: Status: Active Protocol: Document 08/23/20 16:00 DCW (Rec: 08/23/20 16:47 DCW [id number]) OP-PT Subjective Patient Comments Patient Comments Pt really cold today. PT-OP-F Manual Assessment Start: 01/02/20 17:36 Freq: Status: Active Protocol: Document 01/02/20 16:45 DCW (Rec: 01/02/20 18:00 DCW [id number]) Manual Assessments Joint Mobility Assessment Joint Mobility Assessment Left knee laxity and pain with valgus force PT-OP-G Mobility & Gait Start: 01/02/20 17:36 Freq: Status: Active Protocol: Document 03/29/20 16:00 DCW (Rec: 03/29/20 17:05 DCW [id number]) OP Mobility Evaluation Transfers Sit to Stand Min Ax1 in // bars, verbal cues for hand placement OP Gait Assessment Factors Limiting Gait Function Factors Limiting Gait Function Abnormal Tonal Influences, Decreased Activity Tolerance, Decreased Strength,Difficulty Following Directions, Incoordination,Limited Range of Motion,Pain,Poor Balance, Poor Safety Awareness Comments Gait Comments Unable to perform gait activities. Improved pre-gait weight-shift in // bars PT-OP-L Special Tests Start: 01/02/20 17:36 Freq: Status: Active Protocol: Document 01/02/20 16:45 DCW (Rec: 01/02/20 18:00 DCW [id number]) Special Tests Knee Special Tests Kin Test Test Results Positive left Comments Performed in sitting Posterior Draw Test Results Negative Anterior Draw Test Results Negative Varus- 25 Degrees Test Results Negative Varus- 0 Degrees Test Results Negative Valgus- 25 Degrees Test Results Positive left Valgus- 0 Degrees Test Results Positive left PT-OP-M Strength Start: 01/02/20 17:36 Freq: Status: Active Protocol: Document 03/29/20 16:00 DCW (Rec: 03/29/20 17:05 DCW [id number]) Hip Strength Hip Manual Muscle Testing Right Flexion (L2) 4 Good Abduction 4 Good Adduction 4 Good Left Flexion (L2) 4- Good- Abduction 3+ Fair+ Adduction 4- Good- Knee Strength Knee Manual Muscle Testing Right Flexion (S2) 4+ Good+ Extension (L3) 4+ Good+ Left Flexion (S2) 3- Fair- Extension (L3) 2+ Poor+ Ankle/Foot Strength Ankle and Foot Manual Muscle Testing Right Dorsiflexion (L4) 4- Good- Plantarflexion (S1) 3- Fair- Inversion 4 Good Eversion (S1) 4 Good Left Dorsiflexion (L4) 4- Good- Plantarflexion (S1) 3- Fair- Inversion 3- Fair- Eversion (S1) 3- Fair- PT-OP-Q Treatments Start: 01/02/20 17:36 Freq: Status: Active Protocol: Document 08/23/20 16:00 DCW (Rec: 08/23/20 16:47 DCW [id number]) Therapeutic Exercises Sitting Exercises 8 Sitting Exercise Name Balloon Volley Resistance 2# 7 Sitting Exercise Name Overhead Press Side bilateral Resistance 10# Equipment Used PVC 6 Sitting Exercise Name Biceps Curls Side bilateral Resistance 10# Equipment Used PVC 5 Sitting Exercise Name Hip Abduction Side bilateral Resistance Lv 3 Equipment Used T-band 4 Sitting Exercise Name Ankle DF/PF Side bilateral Resistance Lv 3 Equipment Used T-band 3 Sitting Exercise Name HS Curls Side bilateral Resistance Lv 3 Equipment Used T-band 2 Sitting Exercise Name Marching Side bilateral Resistance 5# 1 Sitting Exercise Name LAQ Side bilateral Resistance 5# Standing Exercises 1 Standing Exercise Name Sit<->Stand Equipment Used // bars Reps/Minutes 3x5 Comments Mod-Max Ax1 PT-OP-T Assessment and Plan Start: 01/02/20 17:36 Freq: Status: Active Protocol: Document 08/23/20 16:00 DCW (Rec: 08/23/20 16:47 DCW [id number]) Physical Therapy Assessment Impairments Impairments Activity Tolerance,Balance, Functional Activities, Functional Mobility,Gait,Pain, Posture,ROM,Soft Tissue Mobility,Strength,Transfers Goals Four Impairment Multiple falls at care center Prison Goal (LTG) Pt to report no falls over the course of two months LTG Duration Met Three Impairment Transfers Prison Goal (LTG) Pt to perform stand-pivot transfer CGA with FWW LTG Duration 09/26/20 Two Impairment Pt unable to tolerate standing for more than 10 seconds Prison Goal (LTG) Pt to stand using FWW /c Min Ax1 for 90 seconds LTG Duration 09/26/20 One Impairment LE weakness Airfield Services Officer Goal (LTG) Ankle and knee MMT to to 3+/5 bilaterally Hip MMT to 4/5 bilaterally LTG Duration 09/26/20 Assessment Summary Assessment Pt still struggling more recently with all activities, no noticeable reason. Pt may benefit from follow-up with PCP or neurologist if this continues. Physical Therapy Plan Frequency and Duration Frequency of Treatment 1x/Week Duration of Treatment 12 weeks Plan of Care Start Date 06/28/20 Plan of Care End Date 09/20/20 Therapeutic Interventions Therapeutic Interventions Aquatic Therapy,Balance Training,Coordination Training ,Gait Training,Home Exercise Program,Joint Mobilizations, Manual Therapy,Neuromuscular Re-education,Patient/Caregiver Education,Self-Care/Home Management,Soft Tissue Mobilization,Therapeutic Activities,Therapeutic Exercises,Wheelchair Management Next Visit Focus/Plan Next Note Type Treatment Note Next Visit Plan standing with fWW, transfer training, increased activity tolerance
--- NOTE | 2020-08-30 16:49 | PT.OTN ---
Current Diagnoses Multiple sclerosis (08/30/20) Pain in left knee (08/30/20) Pain in left ankle and joints of left foot (08/30/20) Weakness (08/30/20) Other fatigue (08/30/20) Physical Therapy Treatment Note PT-OP-A Visit Information Start: 01/02/20 17:36 Freq: Status: Active Protocol: Document 08/30/20 16:00 DCW (Rec: 08/30/20 16:49 DCW [id number]) Out-Patient Physical Therapy Visit Information Visit Information Visit Type Treatment Note Visit Start Time 16:00 Visit Stop Time 16:45 Total Visit Minutes 45 Visit Number 25 Number of LUMBER INSPECTOR Visits 0 Evaluation Information Evaluation Date 01/02/20 PT-OP-B Current Condition Start: 01/02/20 17:36 Freq: Status: Active Protocol: Document 01/02/20 16:45 DCW (Rec: 01/02/20 18:00 DCW [id number]) Current Condition History of Current Condition Onset Date Multi-year history Current Complaints MS, fatigue, weakness, L knee pain, L ankle pain History of Current Condition Pt is a 64 year old female with a long-standing history of Multiple Sclerosis. Pt currently mobilizes in her manual wheelchair, and lives at a local care center. Pt has a long-standing history of Physical Therapy off and on at this facility over the past six years, and was working with PT on ambulation, strengthening, and transfers prior to the Covid-19 shut- down, but pt was discharged after her care facility had a mandatory shut-down, and pt was unable to attend physical therapy for ~3 months. Over this time, pt unfortunately spent most of her time lying in bed, which got even worse after she suffered multiple falls when trying to transfer, resulting in a sore left knee and ankle, and an overall refusal to do anything out of bed. Pt reports extreme pain when doing anything in standing, and she feels she has gotten substantially weaker since her last PT session. Pt's sister and [id number] also attended her session today, and report they are trying to get her in for an Ortho consult, and just left a message hoping to schedule an appointment earlier today. Prior Treatments and Tests Prior history of PT Knee x-ray: IMPRESSION: Moderate medial compartment degenerative knee joint osteoarthritis, no fracture found. If unusual symptoms persist followup by MR or delayed plain film imaging may be warranted. per Chauncey Dia M.D. on 12/01/2019 Ankle x-ray: IMPRESSION: No acute trauma found. Exostosis and chronic appearing accessory ossicle or old avulsion fragment as noted. per Chauncey Dia M.D. on Future Testing and Treatments Planned Possible MRI, Ortho consult Treatment Goals Patient/Caregiver Goals Pt wants to transfer more safely PT-OP-C Subjective Start: 01/02/20 17:36 Freq: Status: Active Protocol: Document 08/30/20 16:00 DCW (Rec: 08/30/20 16:49 DCW [id number]) OP-PT Subjective Patient Comments Patient Comments Pt reports she is doing well today. PT-OP-F Manual Assessment Start: 01/02/20 17:36 Freq: Status: Active Protocol: Document 01/02/20 16:45 DCW (Rec: 01/02/20 18:00 DCW [id number]) Manual Assessments Joint Mobility Assessment Joint Mobility Assessment Left knee laxity and pain with valgus force PT-OP-G Mobility & Gait Start: 01/02/20 17:36 Freq: Status: Active Protocol: Document 03/29/20 16:00 DCW (Rec: 03/29/20 17:05 DCW [id number]) OP Mobility Evaluation Transfers Sit to Stand Min Ax1 in // bars, verbal cues for hand placement OP Gait Assessment Factors Limiting Gait Function Factors Limiting Gait Function Abnormal Tonal Influences, Decreased Activity Tolerance, Decreased Strength,Difficulty Following Directions, Incoordination,Limited Range of Motion,Pain,Poor Balance, Poor Safety Awareness Comments Gait Comments Unable to perform gait activities. Improved pre-gait weight-shift in // bars PT-OP-L Special Tests Start: 01/02/20 17:36 Freq: Status: Active Protocol: Document 01/02/20 16:45 DCW (Rec: 01/02/20 18:00 DCW [id number]) Special Tests Knee Special Tests Kin Test Test Results Positive left Comments Performed in sitting Posterior Draw Test Results Negative Anterior Draw Test Results Negative Varus- 25 Degrees Test Results Negative Varus- 0 Degrees Test Results Negative Valgus- 25 Degrees Test Results Positive left Valgus- 0 Degrees Test Results Positive left PT-OP-M Strength Start: 01/02/20 17:36 Freq: Status: Active Protocol: Document 03/29/20 16:00 DCW (Rec: 03/29/20 17:05 DCW [id number]) Hip Strength Hip Manual Muscle Testing Right Flexion (L2) 4 Good Abduction 4 Good Adduction 4 Good Left Flexion (L2) 4- Good- Abduction 3+ Fair+ Adduction 4- Good- Knee Strength Knee Manual Muscle Testing Right Flexion (S2) 4+ Good+ Extension (L3) 4+ Good+ Left Flexion (S2) 3- Fair- Extension (L3) 2+ Poor+ Ankle/Foot Strength Ankle and Foot Manual Muscle Testing Right Dorsiflexion (L4) 4- Good- Plantarflexion (S1) 3- Fair- Inversion 4 Good Eversion (S1) 4 Good Left Dorsiflexion (L4) 4- Good- Plantarflexion (S1) 3- Fair- Inversion 3- Fair- Eversion (S1) 3- Fair- PT-OP-Q Treatments Start: 01/02/20 17:36 Freq: Status: Active Protocol: Document 08/30/20 16:00 DCW (Rec: 08/30/20 16:49 DCW [id number]) Cardio Equipment Upper Body Ergometer (UBE) Duration (Minutes) 6 Seat Position in Wheelchair Height 2.5 Therapeutic Exercises Sitting Exercises 8 Sitting Exercise Name Balloon Volley Resistance 2# 7 Sitting Exercise Name Overhead Press Side bilateral Resistance 10# Equipment Used PVC 6 Sitting Exercise Name Biceps Curls Side bilateral Resistance 10# Equipment Used PVC 5 Sitting Exercise Name Hip Abduction Side bilateral Resistance Lv 3 Equipment Used T-band 4 Sitting Exercise Name Ankle DF/PF Side bilateral Resistance Lv 3 Equipment Used T-band 3 Sitting Exercise Name HS Curls Side bilateral Resistance Lv 3 Equipment Used T-band 2 Sitting Exercise Name Marching Side bilateral Resistance 5# 1 Sitting Exercise Name LAQ Side bilateral Resistance 5# Standing Exercises 1 Standing Exercise Name Sit<->Stand Equipment Used // bars Reps/Minutes 3x5 Comments Mod-Max Ax1 PT-OP-T Assessment and Plan Start: 01/02/20 17:36 Freq: Status: Active Protocol: Document 08/30/20 16:00 DCW (Rec: 08/30/20 16:49 DCW [id number]) Physical Therapy Assessment Impairments Impairments Activity Tolerance,Balance, Functional Activities, Functional Mobility,Gait,Pain, Posture,ROM,Soft Tissue Mobility,Strength,Transfers Goals Four Impairment Multiple falls at care center Manager Research Goal (LTG) Pt to report no falls over the course of two months LTG Duration Met Three Impairment Transfers Senior Living Goal (LTG) Pt to perform stand-pivot transfer CGA with FWW LTG Duration 09/26/20 Two Impairment Pt unable to tolerate standing for more than 10 seconds Manager Research Goal (LTG) Pt to stand using FWW /c Min Ax1 for 90 seconds LTG Duration 09/26/20 One Impairment LE weakness Manager Research Goal (LTG) Ankle and knee MMT to to 3+/5 bilaterally Hip MMT to 4/5 bilaterally LTG Duration 09/26/20 Assessment Summary Assessment Pt did much better with her sit<->stands today after struggling with it the past few weeks. Physical Therapy Plan Frequency and Duration Frequency of Treatment 1x/Week Duration of Treatment 12 weeks Plan of Care Start Date 06/28/20 Plan of Care End Date 09/20/20 Therapeutic Interventions Therapeutic Interventions Aquatic Therapy,Balance Training,Coordination Training ,Gait Training,Home Exercise Program,Joint Mobilizations, Manual Therapy,Neuromuscular Re-education,Patient/Caregiver Education,Self-Care/Home Management,Soft Tissue Mobilization,Therapeutic Activities,Therapeutic Exercises,Wheelchair Management Next Visit Focus/Plan Next Note Type Treatment Note Next Visit Plan standing with fWW, transfer training, increased activity tolerance
--- NOTE | 2020-09-13 16:45 | PT.OTN ---
Current Diagnoses Multiple sclerosis (09/13/20) Pain in left knee (09/13/20) Pain in left ankle and joints of left foot (09/13/20) Weakness (09/13/20) Other fatigue (09/13/20) Physical Therapy Treatment Note PT-OP-A Visit Information Start: 01/02/20 17:36 Freq: Status: Active Protocol: Document 09/13/20 16:00 DCW (Rec: 09/13/20 16:44 DCW [id number]) Out-Patient Physical Therapy Visit Information Visit Information Visit Type Treatment Note Visit Start Time 16:00 Visit Stop Time 16:45 Total Visit Minutes 45 Visit Number 26 Number of WRAPPER DIPPER Visits 0 Evaluation Information Evaluation Date 01/02/20 PT-OP-B Current Condition Start: 01/02/20 17:36 Freq: Status: Active Protocol: Document 01/02/20 16:45 DCW (Rec: 01/02/20 18:00 DCW [id number]) Current Condition History of Current Condition Onset Date Multi-year history Current Complaints MS, fatigue, weakness, L knee pain, L ankle pain History of Current Condition Pt is a 64 year old female with a long-standing history of Multiple Sclerosis. Pt currently mobilizes in her manual wheelchair, and lives at a local care center. Pt has a long-standing history of Physical Therapy off and on at this facility over the past six years, and was working with PT on ambulation, strengthening, and transfers prior to the Covid-19 shut- down, but pt was discharged after her care facility had a mandatory shut-down, and pt was unable to attend physical therapy for ~3 months. Over this time, pt unfortunately spent most of her time lying in bed, which got even worse after she suffered multiple falls when trying to transfer, resulting in a sore left knee and ankle, and an overall refusal to do anything out of bed. Pt reports extreme pain when doing anything in standing, and she feels she has gotten substantially weaker since her last PT session. Pt's sister and [id number] also attended her session today, and report they are trying to get her in for an Ortho consult, and just left a message hoping to schedule an appointment earlier today. Prior Treatments and Tests Prior history of PT Knee x-ray: IMPRESSION: Moderate medial compartment degenerative knee joint osteoarthritis, no fracture found. If unusual symptoms persist followup by MR or delayed plain film imaging may be warranted. per Chauncey Dia M.D. on 12/01/2019 Ankle x-ray: IMPRESSION: No acute trauma found. Exostosis and chronic appearing accessory ossicle or old avulsion fragment as noted. per Chauncey Dia M.D. on Future Testing and Treatments Planned Possible MRI, Ortho consult Treatment Goals Patient/Caregiver Goals Pt wants to transfer more safely PT-OP-C Subjective Start: 01/02/20 17:36 Freq: Status: Active Protocol: Document 09/13/20 16:00 DCW (Rec: 09/13/20 16:44 DCW [id number]) OP-PT Subjective Patient Comments Patient Comments I don't think I'm going to do well today, I need to warm my legs up. PT-OP-F Manual Assessment Start: 01/02/20 17:36 Freq: Status: Active Protocol: Document 01/02/20 16:45 DCW (Rec: 01/02/20 18:00 DCW [id number]) Manual Assessments Joint Mobility Assessment Joint Mobility Assessment Left knee laxity and pain with valgus force PT-OP-G Mobility & Gait Start: 01/02/20 17:36 Freq: Status: Active Protocol: Document 03/29/20 16:00 DCW (Rec: 03/29/20 17:05 DCW [id number]) OP Mobility Evaluation Transfers Sit to Stand Min Ax1 in // bars, verbal cues for hand placement OP Gait Assessment Factors Limiting Gait Function Factors Limiting Gait Function Abnormal Tonal Influences, Decreased Activity Tolerance, Decreased Strength,Difficulty Following Directions, Incoordination,Limited Range of Motion,Pain,Poor Balance, Poor Safety Awareness Comments Gait Comments Unable to perform gait activities. Improved pre-gait weight-shift in // bars PT-OP-L Special Tests Start: 01/02/20 17:36 Freq: Status: Active Protocol: Document 01/02/20 16:45 DCW (Rec: 01/02/20 18:00 DCW [id number]) Special Tests Knee Special Tests Kin Test Test Results Positive left Comments Performed in sitting Posterior Draw Test Results Negative Anterior Draw Test Results Negative Varus- 25 Degrees Test Results Negative Varus- 0 Degrees Test Results Negative Valgus- 25 Degrees Test Results Positive left Valgus- 0 Degrees Test Results Positive left PT-OP-M Strength Start: 01/02/20 17:36 Freq: Status: Active Protocol: Document 03/29/20 16:00 DCW (Rec: 03/29/20 17:05 DCW [id number]) Hip Strength Hip Manual Muscle Testing Right Flexion (L2) 4 Good Abduction 4 Good Adduction 4 Good Left Flexion (L2) 4- Good- Abduction 3+ Fair+ Adduction 4- Good- Knee Strength Knee Manual Muscle Testing Right Flexion (S2) 4+ Good+ Extension (L3) 4+ Good+ Left Flexion (S2) 3- Fair- Extension (L3) 2+ Poor+ Ankle/Foot Strength Ankle and Foot Manual Muscle Testing Right Dorsiflexion (L4) 4- Good- Plantarflexion (S1) 3- Fair- Inversion 4 Good Eversion (S1) 4 Good Left Dorsiflexion (L4) 4- Good- Plantarflexion (S1) 3- Fair- Inversion 3- Fair- Eversion (S1) 3- Fair- PT-OP-Q Treatments Start: 01/02/20 17:36 Freq: Status: Active Protocol: Document 09/13/20 16:00 DCW (Rec: 09/13/20 16:44 DCW [id number]) Cardio Equipment Upper Body Ergometer (UBE) Duration (Minutes) 6 Seat Position in Wheelchair Height 2.5 Therapeutic Exercises Sitting Exercises 8 Sitting Exercise Name Balloon Volley Resistance 2# 7 Sitting Exercise Name Overhead Press Side bilateral Resistance 10# Equipment Used PVC 6 Sitting Exercise Name Biceps Curls Side bilateral Resistance 10# Equipment Used PVC 5 Sitting Exercise Name Hip Abduction Side bilateral Resistance Lv 3 Equipment Used T-band 4 Sitting Exercise Name Ankle DF/PF Side bilateral Resistance Lv 3 Equipment Used T-band 3 Sitting Exercise Name HS Curls Side bilateral Resistance Lv 3 Equipment Used T-band 2 Sitting Exercise Name Marching Side bilateral Resistance 5# 1 Sitting Exercise Name LAQ Side bilateral Resistance 5# Standing Exercises 1 Standing Exercise Name Sit<->Stand Equipment Used // bars Reps/Minutes 2x2 Comments Mod-Max Ax1 PT-OP-T Assessment and Plan Start: 01/02/20 17:36 Freq: Status: Active Protocol: Document 09/13/20 16:00 DCW (Rec: 09/13/20 16:44 DCW [id number]) Physical Therapy Assessment Impairments Impairments Activity Tolerance,Balance, Functional Activities, Functional Mobility,Gait,Pain, Posture,ROM,Soft Tissue Mobility,Strength,Transfers Goals Four Impairment Multiple falls at care center Machine [employer]ision Engraver Goal (LTG) Pt to report no falls over the course of two months LTG Duration Met Three Impairment Transfers Mcfp Goal (LTG) Pt to perform stand-pivot transfer CGA with FWW LTG Duration 09/26/20 Two Impairment Pt unable to tolerate standing for more than 10 seconds [employer] Engraver Goal (LTG) Pt to stand using FWW /c Min Ax1 for 90 seconds LTG Duration 09/26/20 One Impairment LE weakness Mcfp Goal (LTG) Ankle and knee MMT to to 3+/5 bilaterally Hip MMT to 4/5 bilaterally LTG Duration 09/26/20 Assessment Summary Assessment Pt again struggling with her sit<->stands, needed much more assistance to even stand up twice. Pt's sister reported she wanted to get her tested for a UTI, as pt has a history of a significant decline in function when she has a UTI. Physical Therapy Plan Frequency and Duration Frequency of Treatment 1x/Week Duration of Treatment 12 weeks Plan of Care Start Date 06/28/20 Plan of Care End Date 09/20/20 Therapeutic Interventions Therapeutic Interventions Aquatic Therapy,Balance Training,Coordination Training ,Gait Training,Home Exercise Program,Joint Mobilizations, Manual Therapy,Neuromuscular Re-education,Patient/Caregiver Education,Self-Care/Home Management,Soft Tissue Mobilization,Therapeutic Activities,Therapeutic Exercises,Wheelchair Management Next Visit Focus/Plan Next Note Type Treatment Note Next Visit Plan standing with fWW, transfer training, increased activity tolerance
--- NOTE | 2020-09-20 16:53 | PT.OTN ---
Current Diagnoses Multiple sclerosis (09/20/20) Pain in left knee (09/20/20) Pain in left ankle and joints of left foot (09/20/20) Weakness (09/20/20) Other fatigue (09/20/20) Physical Therapy Treatment Note PT-OP-A Visit Information Start: 01/02/20 17:36 Freq: Status: Active Protocol: Document 09/20/20 16:00 DCW (Rec: 09/20/20 16:53 DCW [id number]) Out-Patient Physical Therapy Visit Information Visit Information Visit Type Progress Note Visit Start Time 16:00 Visit Stop Time 16:45 Total Visit Minutes 45 Visit Number 27 Number of ALLIANCES CONSULTANT Visits 0 Evaluation Information Evaluation Date 01/02/20 PT-OP-B Current Condition Start: 01/02/20 17:36 Freq: Status: Active Protocol: Document 01/02/20 16:45 DCW (Rec: 01/02/20 18:00 DCW [id number]) Current Condition History of Current Condition Onset Date Multi-year history Current Complaints MS, fatigue, weakness, L knee pain, L ankle pain History of Current Condition Pt is a 64 year old female with a long-standing history of Multiple Sclerosis. Pt currently mobilizes in her manual wheelchair, and lives at a local care center. Pt has a long-standing history of Physical Therapy off and on at this facility over the past six years, and was working with PT on ambulation, strengthening, and transfers prior to the Covid-19 shut- down, but pt was discharged after her care facility had a mandatory shut-down, and pt was unable to attend physical therapy for ~3 months. Over this time, pt unfortunately spent most of her time lying in bed, which got even worse after she suffered multiple falls when trying to transfer, resulting in a sore left knee and ankle, and an overall refusal to do anything out of bed. Pt reports extreme pain when doing anything in standing, and she feels she has gotten substantially weaker since her last PT session. Pt's sister and [id number] also attended her session today, and report they are trying to get her in for an Ortho consult, and just left a message hoping to schedule an appointment earlier today. Prior Treatments and Tests Prior history of PT Knee x-ray: IMPRESSION: Moderate medial compartment degenerative knee joint osteoarthritis, no fracture found. If unusual symptoms persist followup by MR or delayed plain film imaging may be warranted. per Chauncey Dia M.D. on 12/01/2019 Ankle x-ray: IMPRESSION: No acute trauma found. Exostosis and chronic appearing accessory ossicle or old avulsion fragment as noted. per Chauncey Dia M.D. on Future Testing and Treatments Planned Possible MRI, Ortho consult Treatment Goals Patient/Caregiver Goals Pt wants to transfer more safely PT-OP-C Subjective Start: 01/02/20 17:36 Freq: Status: Active Protocol: Document 09/20/20 16:00 DCW (Rec: 09/20/20 16:53 DCW [id number]) OP-PT Subjective Patient Comments Patient Comments Pt's sister notes that Sabiha has a probable UTI, notes they took a second sample last night to confirm. PT-OP-F Manual Assessment Start: 01/02/20 17:36 Freq: Status: Active Protocol: Document 09/20/20 16:00 DCW (Rec: 09/20/20 16:14 DCW [id number]) Manual Assessments Joint Mobility Assessment Joint Mobility Assessment Continued increased valgus laxity PT-OP-G Mobility & Gait Start: 01/02/20 17:36 Freq: Status: Active Protocol: Document 09/20/20 16:00 DCW (Rec: 09/20/20 16:14 DCW [id number]) OP Mobility Evaluation Transfers Sit to Stand Mod Ax1 in // bars, verbal cues for hand placement OP Gait Assessment Factors Limiting Gait Function Factors Limiting Gait Function Abnormal Tonal Influences, Decreased Activity Tolerance, Decreased Strength,Difficulty Following Directions, Incoordination,Limited Range of Motion,Pain,Poor Balance, Poor Safety Awareness Comments Gait Comments Unable to perform gait activities or pre-gait weight- shift in // bars PT-OP-L Special Tests Start: 01/02/20 17:36 Freq: Status: Active Protocol: Document 01/02/20 16:45 DCW (Rec: 01/02/20 18:00 DCW [id number]) Special Tests Knee Special Tests Kin Test Test Results Positive left Comments Performed in sitting Posterior Draw Test Results Negative Anterior Draw Test Results Negative Varus- 25 Degrees Test Results Negative Varus- 0 Degrees Test Results Negative Valgus- 25 Degrees Test Results Positive left Valgus- 0 Degrees Test Results Positive left PT-OP-M Strength Start: 01/02/20 17:36 Freq: Status: Active Protocol: Document 09/20/20 16:00 DCW (Rec: 09/20/20 16:14 DCW [id number]) Hip Strength Hip Manual Muscle Testing Right Flexion (L2) 4+ Good+ Abduction 4 Good Adduction 4 Good Left Flexion (L2) 4- Good- Abduction 3+ Fair+ Adduction 4- Good- Knee Strength Knee Manual Muscle Testing Right Flexion (S2) 4+ Good+ Extension (L3) 4+ Good+ Left Flexion (S2) 3+ Fair+ Extension (L3) 3+ Fair+ Ankle/Foot Strength Ankle and Foot Manual Muscle Testing Right Dorsiflexion (L4) 4- Good- Plantarflexion (S1) 3 Fair Inversion 4 Good Eversion (S1) 4 Good Left Dorsiflexion (L4) 4- Good- Plantarflexion (S1) 3 Fair Inversion 3- Fair- Eversion (S1) 3- Fair- PT-OP-Q Treatments Start: 01/02/20 17:36 Freq: Status: Active Protocol: Document 09/20/20 16:00 DCW (Rec: 09/20/20 16:53 DCW [id number]) Cardio Equipment Upper Body Ergometer (UBE) Duration (Minutes) 6 Seat Position in Wheelchair Height 2.5 Therapeutic Exercises Sitting Exercises 8 Sitting Exercise Name Balloon Volley Resistance 2# 7 Sitting Exercise Name Overhead Press Side bilateral Resistance 10# Equipment Used PVC 6 Sitting Exercise Name Biceps Curls Side bilateral Resistance 10# Equipment Used PVC 5 Sitting Exercise Name Hip Abduction Side bilateral Resistance Lv 3 Equipment Used T-band 4 Sitting Exercise Name Ankle DF/PF Side bilateral Resistance Lv 3 Equipment Used T-band 2 Sitting Exercise Name Marching Side bilateral Resistance 5# 1 Sitting Exercise Name LAQ Side bilateral Resistance 5# Standing Exercises 1 Standing Exercise Name Sit<->Stand Equipment Used // bars Reps/Minutes 3x5 Comments Mod-Max Ax1 PT-OP-T Assessment and Plan Start: 01/02/20 17:36 Freq: Status: Active Protocol: Document 09/20/20 16:00 DCW (Rec: 09/20/20 16:53 DCW [id number]) Physical Therapy Assessment Impairments Impairments Activity Tolerance,Balance, Functional Activities, Functional Mobility,Gait,Pain, Posture,ROM,Soft Tissue Mobility,Strength,Transfers Goals Four Impairment Multiple falls at care center Loan Documents Closer Goal (LTG) Pt to report no falls over the course of two months LTG Duration Met Three Impairment Transfers Fdc Goal (LTG) Pt to perform stand-pivot transfer CGA with FWW LTG Duration 12/21/20 Two Impairment Pt unable to tolerate standing for more than 10 seconds Fdc Goal (LTG) Pt to stand using FWW /c Min Ax1 for 90 seconds LTG Duration 12/21/20 One Impairment LE weakness Loan Documents Closer Goal (LTG) Ankle and knee MMT to to 3+/5 bilaterally Hip MMT to 4/5 bilaterally LTG Duration 12/21/20 Assessment Summary Assessment Pt sighty improved with sit<-> stand today, still requiring Mod Ax1. Overall, today's session likely does not accurately project pt's true level of function, as she has a probable UTI, however, she has been relatively unchanged overall since her last reassessment. Physical Therapy Plan Frequency and Duration Frequency of Treatment 1x/Week Duration of Treatment 12 weeks Plan of Care Start Date 09/20/20 Plan of Care End Date 12/21/20 Therapeutic Interventions Therapeutic Interventions Aquatic Therapy,Balance Training,Coordination Training ,Gait Training,Home Exercise Program,Joint Mobilizations, Manual Therapy,Neuromuscular Re-education,Patient/Caregiver Education,Self-Care/Home Management,Soft Tissue Mobilization,Therapeutic Activities,Therapeutic Exercises,Wheelchair Management Next Visit Focus/Plan Next Note Type Treatment Note Next Visit Plan standing with fWW, transfer training, increased activity tolerance
--- NOTE | 2020-09-20 16:53 | PT.OPPOC ---
Physical, Occupational & Speech Therapy At [facility] Current Diagnoses Multiple sclerosis (09/20/20) Pain in left knee (09/20/20) Pain in left ankle and joints of left foot (09/20/20) Weakness (09/20/20) Other fatigue (09/20/20) Visit Care Team Role Provider Type JJ Escudero Attending Provider Advanced Teacher Pres[employer] Primary Care Provider Referring Provider Specialty: Family Practice Address: [address] [place] [address], [id number] Email: [email or web address] Plan Of Care PT-OP-T Assessment and Plan Start: 01/02/20 17:36 Freq: Status: Active Protocol: Document 09/20/20 16:00 DCW (Rec: 09/20/20 16:53 DCW [id number]) Physical Therapy Assessment Impairments Impairments Activity Tolerance,Balance, Functional Activities, Functional Mobility,Gait,Pain, Posture,ROM,Soft Tissue Mobility,Strength,Transfers Goals Four Impairment Multiple falls at care center Detention Goal (LTG) Pt to report no falls over the course of two months LTG Duration Met Three Impairment Transfers Detention Goal (LTG) Pt to perform stand-pivot transfer CGA with FWW LTG Duration 12/21/20 Two Impairment Pt unable to tolerate standing for more than 10 seconds Detention Goal (LTG) Pt to stand using FWW /c Min Ax1 for 90 seconds LTG Duration 12/21/20 One Impairment LE weakness Detention Goal (LTG) Ankle and knee MMT to to 3+/5 bilaterally Hip MMT to 4/5 bilaterally LTG Duration 12/21/20 Assessment Summary Assessment Pt sighty improved with sit<-> stand today, still requiring Mod Ax1. Overall, today's session likely does not accurately project pt's true level of function, as she has a probable UTI, however, she has been relatively unchanged overall since her last reassessment. Physical Therapy Plan Frequency and Duration Frequency of Treatment 1x/Week Duration of Treatment 12 weeks Plan of Care Start Date 09/20/20 Plan of Care End Date 12/21/20 Therapeutic Interventions Therapeutic Interventions Aquatic Therapy,Balance Training,Coordination Training ,Gait Training,Home Exercise Program,Joint Mobilizations, Manual Therapy,Neuromuscular Re-education,Patient/Caregiver Education,Self-Care/Home Management,Soft Tissue Mobilization,Therapeutic Activities,Therapeutic Exercises,Wheelchair Management Next Visit Focus/Plan Next Note Type Treatment Note Next Visit Plan standing with fWW, transfer training, increased activity tolerance Plan of Care Dates Plan of Care Start Date 09/20/20 Plan of Care End Date 12/21/20 Electronically Signed by: Daryl Robertson, PT 09/20/20 [id number] Please Sign and Return: I have reviewed this Plan of Care and certify that the skilled therapy services above are required to meet the patient?s needs. Physician Signature Date Printed Name and Credentials Clinical Instructor Signature Printed Name and Credentials
--- NOTE | 2020-09-27 16:42 | PT.OTN ---
Current Diagnoses Multiple sclerosis (09/27/20) Pain in left knee (09/27/20) Pain in left ankle and joints of left foot (09/27/20) Weakness (09/27/20) Other fatigue (09/27/20) Physical Therapy Treatment Note PT-OP-A Visit Information Start: 01/02/20 17:36 Freq: Status: Active Protocol: Document 09/27/20 16:00 DCW (Rec: 09/27/20 16:42 DCW [id number]) Out-Patient Physical Therapy Visit Information Visit Information Visit Type Treatment Note Visit Start Time 16:00 Visit Stop Time 16:45 Total Visit Minutes 45 Visit Number 28 Number of ASSISTANT PROFESSOR OF PHILOSOPHY Visits 0 Evaluation Information Evaluation Date 01/02/20 PT-OP-B Current Condition Start: 01/02/20 17:36 Freq: Status: Active Protocol: Document 01/02/20 16:45 DCW (Rec: 01/02/20 18:00 DCW [id number]) Current Condition History of Current Condition Onset Date Multi-year history Current Complaints MS, fatigue, weakness, L knee pain, L ankle pain History of Current Condition Pt is a 64 year old female with a long-standing history of Multiple Sclerosis. Pt currently mobilizes in her manual wheelchair, and lives at a local care center. Pt has a long-standing history of Physical Therapy off and on at this facility over the past six years, and was working with PT on ambulation, strengthening, and transfers prior to the Covid-19 shut- down, but pt was discharged after her care facility had a mandatory shut-down, and pt was unable to attend physical therapy for ~3 months. Over this time, pt unfortunately spent most of her time lying in bed, which got even worse after she suffered multiple falls when trying to transfer, resulting in a sore left knee and ankle, and an overall refusal to do anything out of bed. Pt reports extreme pain when doing anything in standing, and she feels she has gotten substantially weaker since her last PT session. Pt's sister and [id number] also attended her session today, and report they are trying to get her in for an Ortho consult, and just left a message hoping to schedule an appointment earlier today. Prior Treatments and Tests Prior history of PT Knee x-ray: IMPRESSION: Moderate medial compartment degenerative knee joint osteoarthritis, no fracture found. If unusual symptoms persist followup by MR or delayed plain film imaging may be warranted. per Chauncey Dia M.D. on 12/01/2019 Ankle x-ray: IMPRESSION: No acute trauma found. Exostosis and chronic appearing accessory ossicle or old avulsion fragment as noted. per Chauncey Dia M.D. on Future Testing and Treatments Planned Possible MRI, Ortho consult Treatment Goals Patient/Caregiver Goals Pt wants to transfer more safely PT-OP-C Subjective Start: 01/02/20 17:36 Freq: Status: Active Protocol: Document 09/27/20 16:00 DCW (Rec: 09/27/20 16:42 DCW [id number]) OP-PT Subjective Patient Comments Patient Comments Pt notes she did end up having a UTI, and has been placed on medication. PT-OP-F Manual Assessment Start: 01/02/20 17:36 Freq: Status: Active Protocol: Document 09/20/20 16:00 DCW (Rec: 09/20/20 16:14 DCW [id number]) Manual Assessments Joint Mobility Assessment Joint Mobility Assessment Continued increased valgus laxity PT-OP-G Mobility & Gait Start: 01/02/20 17:36 Freq: Status: Active Protocol: Document 09/20/20 16:00 DCW (Rec: 09/20/20 16:14 DCW [id number]) OP Mobility Evaluation Transfers Sit to Stand Mod Ax1 in // bars, verbal cues for hand placement OP Gait Assessment Factors Limiting Gait Function Factors Limiting Gait Function Abnormal Tonal Influences, Decreased Activity Tolerance, Decreased Strength,Difficulty Following Directions, Incoordination,Limited Range of Motion,Pain,Poor Balance, Poor Safety Awareness Comments Gait Comments Unable to perform gait activities or pre-gait weight- shift in // bars PT-OP-L Special Tests Start: 01/02/20 17:36 Freq: Status: Active Protocol: Document 01/02/20 16:45 DCW (Rec: 01/02/20 18:00 DCW [id number]) Special Tests Knee Special Tests Kin Test Test Results Positive left Comments Performed in sitting Posterior Draw Test Results Negative Anterior Draw Test Results Negative Varus- 25 Degrees Test Results Negative Varus- 0 Degrees Test Results Negative Valgus- 25 Degrees Test Results Positive left Valgus- 0 Degrees Test Results Positive left PT-OP-M Strength Start: 06/22/20 17:36 Freq: Status: Active Protocol: Document 09/20/20 16:00 DCW (Rec: 09/20/20 16:14 DCW [id number]) Hip Strength Hip Manual Muscle Testing Right Flexion (L2) 4+ Good+ Abduction 4 Good Adduction 4 Good Left Flexion (L2) 4- Good- Abduction 3+ Fair+ Adduction 4- Good- Knee Strength Knee Manual Muscle Testing Right Flexion (S2) 4+ Good+ Extension (L3) 4+ Good+ Left Flexion (S2) 3+ Fair+ Extension (L3) 3+ Fair+ Ankle/Foot Strength Ankle and Foot Manual Muscle Testing Right Dorsiflexion (L4) 4- Good- Plantarflexion (S1) 3 Fair Inversion 4 Good Eversion (S1) 4 Good Left Dorsiflexion (L4) 4- Good- Plantarflexion (S1) 3 Fair Inversion 3- Fair- Eversion (S1) 3- Fair- PT-OP-Q Treatments Start: 01/02/20 17:36 Freq: Status: Active Protocol: Document 09/27/20 16:00 DCW (Rec: 09/27/20 16:42 DCW [id number]) Cardio Equipment Upper Body Ergometer (UBE) Duration (Minutes) 6 Seat Position in Wheelchair Height 2.5 Therapeutic Exercises Sitting Exercises 9 Sitting Exercise Name Hip Adduction Ball Squeeze Side bilateral 8 Sitting Exercise Name Balloon Volley Resistance 2# 7 Sitting Exercise Name Overhead Press Side bilateral Resistance 10# Equipment Used PVC 6 Sitting Exercise Name Biceps Curls Side bilateral Resistance 10# Equipment Used PVC 5 Sitting Exercise Name Hip Abduction Side bilateral Resistance Lv 3 Equipment Used T-band 4 Sitting Exercise Name Ankle DF/PF Side bilateral Resistance Lv 3 Equipment Used T-band 3 Sitting Exercise Name HS Curls Side bilateral Resistance Lv 3 Equipment Used T-band 2 Sitting Exercise Name Marching Side bilateral Resistance 5# 1 Sitting Exercise Name LAQ Side bilateral Resistance 5# Standing Exercises 1 Standing Exercise Name Sit<->Stand Equipment Used // bars Reps/Minutes 3x5 Comments Min Ax1 PT-OP-T Assessment and Plan Start: 01/02/20 17:36 Freq: Status: Active Protocol: Document 09/27/20 16:00 DCW (Rec: 09/27/20 16:42 DCW [id number]) Physical Therapy Assessment Impairments Impairments Activity Tolerance,Balance, Functional Activities, Functional Mobility,Gait,Pain, Posture,ROM,Soft Tissue Mobility,Strength,Transfers Goals Four Impairment Multiple falls at care center [facility] Goal (LTG) Pt to report no falls over the course of two months LTG Duration Met Three Impairment Transfers Reservation Agent Goal (LTG) Pt to perform stand-pivot transfer CGA with FWW LTG Duration 12/21/20 Two Impairment Pt unable to tolerate standing for more than 10 seconds Reservation Agent Goal (LTG) Pt to stand using FWW /c Min Ax1 for 90 seconds LTG Duration 12/21/20 One Impairment LE weakness [facility] Goal (LTG) Ankle and knee MMT to to 3+/5 bilaterally Hip MMT to 4/5 bilaterally LTG Duration 12/21/20 Assessment Summary Assessment Pt showing substantial improvement in her Sit<->Stand ability from the last few weeks after undergoing treatment for her UTI. Physical Therapy Plan Frequency and Duration Frequency of Treatment 1x/Week Duration of Treatment 12 weeks Plan of Care Start Date 09/20/20 Plan of Care End Date 12/21/20 Therapeutic Interventions Therapeutic Interventions Aquatic Therapy,Balance Training,Coordination Training ,Gait Training,Home Exercise Program,Joint Mobilizations, Manual Therapy,Neuromuscular Re-education,Patient/Caregiver Education,Self-Care/Home Management,Soft Tissue Mobilization,Therapeutic Activities,Therapeutic Exercises,Wheelchair Management Next Visit Focus/Plan Next Note Type Treatment Note Next Visit Plan standing with fWW, transfer training, increased activity tolerance
--- NOTE | 2020-10-04 16:45 | PT.OTN ---
Current Diagnoses Multiple sclerosis (10/04/20) Pain in left knee (10/04/20) Pain in left ankle and joints of left foot (10/04/20) Weakness (10/04/20) Other fatigue (10/04/20) Physical Therapy Treatment Note PT-OP-A Visit Information Start: 01/02/20 17:36 Freq: Status: Active Protocol: Document 10/04/20 16:00 DCW (Rec: 10/04/20 16:44 DCW [id number]) Out-Patient Physical Therapy Visit Information Visit Information Visit Type Treatment Note Visit Start Time 16:00 Visit Stop Time 16:45 Total Visit Minutes 45 Visit Number 29 Number of NEUROLOGY STROKE PHYSICIAN Visits 0 Evaluation Information Evaluation Date 01/02/20 PT-OP-B Current Condition Start: 01/02/20 17:36 Freq: Status: Active Protocol: Document 01/02/20 16:45 DCW (Rec: 01/02/20 18:00 DCW [id number]) Current Condition History of Current Condition Onset Date Multi-year history Current Complaints MS, fatigue, weakness, L knee pain, L ankle pain History of Current Condition Pt is a 64 year old female with a long-standing history of Multiple Sclerosis. Pt currently mobilizes in her manual wheelchair, and lives at a local care center. Pt has a long-standing history of Physical Therapy off and on at this facility over the past six years, and was working with PT on ambulation, strengthening, and transfers prior to the Covid-19 shut- down, but pt was discharged after her care facility had a mandatory shut-down, and pt was unable to attend physical therapy for ~3 months. Over this time, pt unfortunately spent most of her time lying in bed, which got even worse after she suffered multiple falls when trying to transfer, resulting in a sore left knee and ankle, and an overall refusal to do anything out of bed. Pt reports extreme pain when doing anything in standing, and she feels she has gotten substantially weaker since her last PT session. Pt's sister and [id number] also attended her session today, and report they are trying to get her in for an Ortho consult, and just left a message hoping to schedule an appointment earlier today. Prior Treatments and Tests Prior history of PT Knee x-ray: IMPRESSION: Moderate medial compartment degenerative knee joint osteoarthritis, no fracture found. If unusual symptoms persist followup by MR or delayed plain film imaging may be warranted. per Chauncey Dia M.D. on 12/01/2019 Ankle x-ray: IMPRESSION: No acute trauma found. Exostosis and chronic appearing accessory ossicle or old avulsion fragment as noted. per Chauncey Dia M.D. on Future Testing and Treatments Planned Possible MRI, Ortho consult Treatment Goals Patient/Caregiver Goals Pt wants to transfer more safely PT-OP-C Subjective Start: 01/02/20 17:36 Freq: Status: Active Protocol: Document 10/04/20 16:00 DCW (Rec: 10/04/20 16:44 DCW [id number]) OP-PT Subjective Patient Comments Patient Comments Pt notes she has no complaints or concerns today. PT-OP-F Manual Assessment Start: 01/02/20 17:36 Freq: Status: Active Protocol: Document 09/20/20 16:00 DCW (Rec: 09/20/20 16:14 DCW [id number]) Manual Assessments Joint Mobility Assessment Joint Mobility Assessment Continued increased valgus laxity PT-OP-G Mobility & Gait Start: 01/02/20 17:36 Freq: Status: Active Protocol: Document 09/20/20 16:00 DCW (Rec: 09/20/20 16:14 DCW [id number]) OP Mobility Evaluation Transfers Sit to Stand Mod Ax1 in // bars, verbal cues for hand placement OP Gait Assessment Factors Limiting Gait Function Factors Limiting Gait Function Abnormal Tonal Influences, Decreased Activity Tolerance, Decreased Strength,Difficulty Following Directions, Incoordination,Limited Range of Motion,Pain,Poor Balance, Poor Safety Awareness Comments Gait Comments Unable to perform gait activities or pre-gait weight- shift in // bars PT-OP-L Special Tests Start: 01/02/20 17:36 Freq: Status: Active Protocol: Document 01/02/20 16:45 DCW (Rec: 01/02/20 18:00 DCW [id number]) Special Tests Knee Special Tests Kin Test Test Results Positive left Comments Performed in sitting Posterior Draw Test Results Negative Anterior Draw Test Results Negative Varus- 25 Degrees Test Results Negative Varus- 0 Degrees Test Results Negative Valgus- 25 Degrees Test Results Positive left Valgus- 0 Degrees Test Results Positive left PT-OP-M Strength Start: 01/02/20 17:36 Freq: Status: Active Protocol: Document 09/20/20 16:00 DCW (Rec: 09/20/20 16:14 DCW [id number]) Hip Strength Hip Manual Muscle Testing Right Flexion (L2) 4+ Good+ Abduction 4 Good Adduction 4 Good Left Flexion (L2) 4- Good- Abduction 3+ Fair+ Adduction 4- Good- Knee Strength Knee Manual Muscle Testing Right Flexion (S2) 4+ Good+ Extension (L3) 4+ Good+ Left Flexion (S2) 3+ Fair+ Extension (L3) 3+ Fair+ Ankle/Foot Strength Ankle and Foot Manual Muscle Testing Right Dorsiflexion (L4) 4- Good- Plantarflexion (S1) 3 Fair Inversion 4 Good Eversion (S1) 4 Good Left Dorsiflexion (L4) 4- Good- Plantarflexion (S1) 3 Fair Inversion 3- Fair- Eversion (S1) 3- Fair- PT-OP-Q Treatments Start: 01/02/20 17:36 Freq: Status: Active Protocol: Document 10/04/20 16:00 DCW (Rec: 10/04/20 16:44 DCW [id number]) Cardio Equipment Upper Body Ergometer (UBE) Duration (Minutes) 6 Seat Position in Wheelchair Height 2.5 Therapeutic Exercises Sitting Exercises 9 Sitting Exercise Name Hip Adduction Ball Squeeze Side bilateral 8 Sitting Exercise Name Balloon Volley Resistance 2# 7 Sitting Exercise Name Overhead Press Side bilateral Resistance 10# Equipment Used PVC 6 Sitting Exercise Name Biceps Curls Side bilateral Resistance 10# Equipment Used PVC 5 Sitting Exercise Name Hip Abduction Side bilateral Resistance Lv 3 Equipment Used T-band 4 Sitting Exercise Name Ankle DF/PF Side bilateral Resistance Lv 3 Equipment Used T-band 3 Sitting Exercise Name HS Curls Side bilateral Resistance Lv 3 Equipment Used T-band 2 Sitting Exercise Name Marching Side bilateral Resistance 5# 1 Sitting Exercise Name LAQ Side bilateral Resistance 5# Standing Exercises 1 Standing Exercise Name Sit<->Stand Equipment Used // bars Reps/Minutes 3x5 Comments Min Ax1 Neuro Re-Education Treatment Coordination Activities 1 Details Cone activities Equipment Cones Speed 5# ankle weight each ankle Comments Using feet to knock over cones for coordination training/ neuromuscular re-education PT-OP-T Assessment and Plan Start: 01/02/20 17:36 Freq: Status: Active Protocol: Document 10/04/20 16:00 DCW (Rec: 10/04/20 16:44 DCW [id number]) Physical Therapy Assessment Impairments Impairments Activity Tolerance,Balance, Functional Activities, Functional Mobility,Gait,Pain, Posture,ROM,Soft Tissue Mobility,Strength,Transfers Goals Four Impairment Multiple falls at care center Rotary Pump Operator Goal (LTG) Pt to report no falls over the course of two months LTG Duration Met Three Impairment Transfers Rotary Pump Operator Goal (LTG) Pt to perform stand-pivot transfer CGA with FWW LTG Duration 12/21/20 Two Impairment Pt unable to tolerate standing for more than 10 seconds Rotary Pump Operator Goal (LTG) Pt to stand using FWW /c Min Ax1 for 90 seconds LTG Duration 12/21/20 One Impairment LE weakness Rotary Pump Operator Goal (LTG) Ankle and knee MMT to to 3+/5 bilaterally Hip MMT to 4/5 bilaterally LTG Duration 12/21/20 Assessment Summary Assessment Pt still doing better with sit <->stand following UTI treatment. Overall, pt seems to have returned to her recent level of function. Physical Therapy Plan Frequency and Duration Frequency of Treatment 1x/Week Duration of Treatment 12 weeks Plan of Care Start Date 09/20/20 Plan of Care End Date 12/21/20 Therapeutic Interventions Therapeutic Interventions Aquatic Therapy,Balance Training,Coordination Training ,Gait Training,Home Exercise Program,Joint Mobilizations, Manual Therapy,Neuromuscular Re-education,Patient/Caregiver Education,Self-Care/Home Management,Soft Tissue Mobilization,Therapeutic Activities,Therapeutic Exercises,Wheelchair Management Next Visit Focus/Plan Next Note Type Treatment Note Next Visit Plan standing with fWW, transfer training, increased activity tolerance
--- NOTE | 2020-10-17 15:12 | PT.OTN ---
Current Diagnoses Multiple sclerosis (10/17/20) Pain in left knee (10/17/20) Pain in left ankle and joints of left foot (10/17/20) Weakness (10/17/20) Other fatigue (10/17/20) Physical Therapy Treatment Note PT-OP-A Visit Information Start: 01/02/20 17:36 Freq: Status: Active Protocol: Document 10/17/20 14:30 DCW (Rec: 10/17/20 15:12 DCW [id number]) Out-Patient Physical Therapy Visit Information Visit Information Visit Type Treatment Note Visit Start Time 14:30 Visit Stop Time 15:15 Total Visit Minutes 45 Visit Number 30 Number of SIGNAL INSPECTOR Visits 0 Evaluation Information Evaluation Date 01/02/20 PT-OP-B Current Condition Start: 01/02/20 17:36 Freq: Status: Active Protocol: Document 01/02/20 16:45 DCW (Rec: 01/02/20 18:00 DCW [id number]) Current Condition History of Current Condition Onset Date Multi-year history Current Complaints MS, fatigue, weakness, L knee pain, L ankle pain History of Current Condition Pt is a 64 year old female with a long-standing history of Multiple Sclerosis. Pt currently mobilizes in her manual wheelchair, and lives at a local care center. Pt has a long-standing history of Physical Therapy off and on at this facility over the past six years, and was working with PT on ambulation, strengthening, and transfers prior to the Covid-19 shut- down, but pt was discharged after her care facility had a mandatory shut-down, and pt was unable to attend physical therapy for ~3 months. Over this time, pt unfortunately spent most of her time lying in bed, which got even worse after she suffered multiple falls when trying to transfer, resulting in a sore left knee and ankle, and an overall refusal to do anything out of bed. Pt reports extreme pain when doing anything in standing, and she feels she has gotten substantially weaker since her last PT session. Pt's sister and [id number] also attended her session today, and report they are trying to get her in for an Ortho consult, and just left a message hoping to schedule an appointment earlier today. Prior Treatments and Tests Prior history of PT Knee x-ray: IMPRESSION: Moderate medial compartment degenerative knee joint osteoarthritis, no fracture found. If unusual symptoms persist followup by MR or delayed plain film imaging may be warranted. per Chauncey Dia M.D. on 12/01/2019 Ankle x-ray: IMPRESSION: No acute trauma found. Exostosis and chronic appearing accessory ossicle or old avulsion fragment as noted. per Chauncey Dia M.D. on Future Testing and Treatments Planned Possible MRI, Ortho consult Treatment Goals Patient/Caregiver Goals Pt wants to transfer more safely PT-OP-C Subjective Start: 01/02/20 17:36 Freq: Status: Active Protocol: Document 10/17/20 14:30 DCW (Rec: 10/17/20 15:12 DCW [id number]) OP-PT Subjective Patient Comments Patient Comments Pt reports she is doing well today. PT-OP-F Manual Assessment Start: 01/02/20 17:36 Freq: Status: Active Protocol: Document 09/20/20 16:00 DCW (Rec: 09/20/20 16:14 DCW [id number]) Manual Assessments Joint Mobility Assessment Joint Mobility Assessment Continued increased valgus laxity PT-OP-G Mobility & Gait Start: 01/02/20 17:36 Freq: Status: Active Protocol: Document 09/20/20 16:00 DCW (Rec: 09/20/20 16:14 DCW [id number]) OP Mobility Evaluation Transfers Sit to Stand Mod Ax1 in // bars, verbal cues for hand placement OP Gait Assessment Factors Limiting Gait Function Factors Limiting Gait Function Abnormal Tonal Influences, Decreased Activity Tolerance, Decreased Strength,Difficulty Following Directions, Incoordination,Limited Range of Motion,Pain,Poor Balance, Poor Safety Awareness Comments Gait Comments Unable to perform gait activities or pre-gait weight- shift in // bars PT-OP-L Special Tests Start: 01/02/20 17:36 Freq: Status: Active Protocol: Document 01/02/20 16:45 DCW (Rec: 01/02/20 18:00 DCW [id number]) Special Tests Knee Special Tests Kin Test Test Results Positive left Comments Performed in sitting Posterior Draw Test Results Negative Anterior Draw Test Results Negative Varus- 25 Degrees Test Results Negative Varus- 0 Degrees Test Results Negative Valgus- 25 Degrees Test Results Positive left Valgus- 0 Degrees Test Results Positive left PT-OP-M Strength Start: 01/02/20 17:36 Freq: Status: Active Protocol: Document 09/20/20 16:00 DCW (Rec: 09/20/20 16:14 DCW [id number]) Hip Strength Hip Manual Muscle Testing Right Flexion (L2) 4+ Good+ Abduction 4 Good Adduction 4 Good Left Flexion (L2) 4- Good- Abduction 3+ Fair+ Adduction 4- Good- Knee Strength Knee Manual Muscle Testing Right Flexion (S2) 4+ Good+ Extension (L3) 4+ Good+ Left Flexion (S2) 3+ Fair+ Extension (L3) 3+ Fair+ Ankle/Foot Strength Ankle and Foot Manual Muscle Testing Right Dorsiflexion (L4) 4- Good- Plantarflexion (S1) 3 Fair Inversion 4 Good Eversion (S1) 4 Good Left Dorsiflexion (L4) 4- Good- Plantarflexion (S1) 3 Fair Inversion 3- Fair- Eversion (S1) 3- Fair- PT-OP-Q Treatments Start: 01/02/20 17:36 Freq: Status: Active Protocol: Document 10/17/20 14:30 DCW (Rec: 10/17/20 15:12 DCW [id number]) Cardio Equipment Upper Body Ergometer (UBE) Duration (Minutes) 6 Seat Position in Wheelchair Height 2.5 Therapeutic Exercises Sitting Exercises 9 Sitting Exercise Name Hip Adduction Ball Squeeze Side bilateral 8 Sitting Exercise Name Balloon Volley Resistance 2# 7 Sitting Exercise Name Overhead Press Side bilateral Resistance 10# Equipment Used PVC 6 Sitting Exercise Name Biceps Curls Side bilateral Resistance 10# Equipment Used PVC 5 Sitting Exercise Name Hip Abduction Side bilateral Resistance Lv 3 Equipment Used T-band 4 Sitting Exercise Name Ankle DF/PF Side bilateral Resistance Lv 3 Equipment Used T-band 3 Sitting Exercise Name HS Curls Side bilateral Resistance Lv 3 Equipment Used T-band 2 Sitting Exercise Name Marching Side bilateral Resistance 5# 1 Sitting Exercise Name LAQ Side bilateral Resistance 5# Standing Exercises 1 Standing Exercise Name Sit<->Stand Equipment Used // bars Reps/Minutes 3x5 Comments Min Ax1 Neuro Re-Education Treatment Coordination Activities 1 Details Cone activities Equipment Cones Speed 5# ankle weight each ankle Comments Using feet to knock over cones for coordination training/ neuromuscular re-education PT-OP-T Assessment and Plan Start: 01/02/20 17:36 Freq: Status: Active Protocol: Document 10/17/20 14:30 DCW (Rec: 10/17/20 15:12 DCW [id number]) Physical Therapy Assessment Impairments Impairments Activity Tolerance,Balance, Functional Activities, Functional Mobility,Gait,Pain, Posture,ROM,Soft Tissue Mobility,Strength,Transfers Goals Four Impairment Multiple falls at care center Skilled Nursing Goal (LTG) Pt to report no falls over the course of two months LTG Duration Met Three Impairment Transfers Skilled Nursing Goal (LTG) Pt to perform stand-pivot transfer CGA with FWW LTG Duration 12/21/20 Two Impairment Pt unable to tolerate standing for more than 10 seconds Skilled Nursing Goal (LTG) Pt to stand using FWW /c Min Ax1 for 90 seconds LTG Duration 12/21/20 One Impairment LE weakness Skilled Nursing Goal (LTG) Ankle and knee MMT to to 3+/5 bilaterally Hip MMT to 4/5 bilaterally LTG Duration 12/21/20 Assessment Summary Assessment Pt relied a little more on therapist assistance during sit<->stand today, still doing better than recent weeks. Physical Therapy Plan Frequency and Duration Frequency of Treatment 1x/Week Duration of Treatment 12 weeks Plan of Care Start Date 09/20/20 Plan of Care End Date 12/21/20 Therapeutic Interventions Therapeutic Interventions Aquatic Therapy,Balance Training,Coordination Training ,Gait Training,Home Exercise Program,Joint Mobilizations, Manual Therapy,Neuromuscular Re-education,Patient/Caregiver Education,Self-Care/Home Management,Soft Tissue Mobilization,Therapeutic Activities,Therapeutic Exercises,Wheelchair Management Next Visit Focus/Plan Next Note Type Treatment Note Next Visit Plan standing with fWW, transfer training, increased activity tolerance
--- NOTE | 2020-10-25 16:43 | PT.OTN ---
Current Diagnoses Multiple sclerosis (10/25/20) Pain in left knee (10/25/20) Pain in left ankle and joints of left foot (10/25/20) Weakness (10/25/20) Other fatigue (10/25/20) Physical Therapy Treatment Note PT-OP-A Visit Information Start: 01/02/20 17:36 Freq: Status: Active Protocol: Document 10/25/20 16:00 DCW (Rec: 10/25/20 16:42 DCW [id number]) Out-Patient Physical Therapy Visit Information Visit Information Visit Type Treatment Note Visit Start Time 16:00 Visit Stop Time 16:45 Total Visit Minutes 45 Visit Number 31 Number of CRANBERRY GROWER Visits 0 Evaluation Information Evaluation Date 01/02/20 PT-OP-B Current Condition Start: 01/02/20 17:36 Freq: Status: Active Protocol: Document 01/02/20 16:45 DCW (Rec: 01/02/20 18:00 DCW [id number]) Current Condition History of Current Condition Onset Date Multi-year history Current Complaints MS, fatigue, weakness, L knee pain, L ankle pain History of Current Condition Pt is a 64 year old female with a long-standing history of Multiple Sclerosis. Pt currently mobilizes in her manual wheelchair, and lives at a local care center. Pt has a long-standing history of Physical Therapy off and on at this facility over the past six years, and was working with PT on ambulation, strengthening, and transfers prior to the Covid-19 shut- down, but pt was discharged after her care facility had a mandatory shut-down, and pt was unable to attend physical therapy for ~3 months. Over this time, pt unfortunately spent most of her time lying in bed, which got even worse after she suffered multiple falls when trying to transfer, resulting in a sore left knee and ankle, and an overall refusal to do anything out of bed. Pt reports extreme pain when doing anything in standing, and she feels she has gotten substantially weaker since her last PT session. Pt's sister and [id number] also attended her session today, and report they are trying to get her in for an Ortho consult, and just left a message hoping to schedule an appointment earlier today. Prior Treatments and Tests Prior history of PT Knee x-ray: IMPRESSION: Moderate medial compartment degenerative knee joint osteoarthritis, no fracture found. If unusual symptoms persist followup by MR or delayed plain film imaging may be warranted. per Chauncey Dia M.D. on 12/01/2019 Ankle x-ray: IMPRESSION: No acute trauma found. Exostosis and chronic appearing accessory ossicle or old avulsion fragment as noted. per Chauncey Dia M.D. on Future Testing and Treatments Planned Possible MRI, Ortho consult Treatment Goals Patient/Caregiver Goals Pt wants to transfer more safely PT-OP-C Subjective Start: 01/02/20 17:36 Freq: Status: Active Protocol: Document 10/25/20 16:00 DCW (Rec: 10/25/20 16:42 DCW [id number]) OP-PT Subjective Patient Comments Patient Comments Pt reports she feels okay today. PT-OP-F Manual Assessment Start: 01/02/20 17:36 Freq: Status: Active Protocol: Document 09/20/20 16:00 DCW (Rec: 09/20/20 16:14 DCW [id number]) Manual Assessments Joint Mobility Assessment Joint Mobility Assessment Continued increased valgus laxity PT-OP-G Mobility & Gait Start: 01/02/20 17:36 Freq: Status: Active Protocol: Document 09/20/20 16:00 DCW (Rec: 09/20/20 16:14 DCW [id number]) OP Mobility Evaluation Transfers Sit to Stand Mod Ax1 in // bars, verbal cues for hand placement OP Gait Assessment Factors Limiting Gait Function Factors Limiting Gait Function Abnormal Tonal Influences, Decreased Activity Tolerance, Decreased Strength,Difficulty Following Directions, Incoordination,Limited Range of Motion,Pain,Poor Balance, Poor Safety Awareness Comments Gait Comments Unable to perform gait activities or pre-gait weight- shift in // bars PT-OP-L Special Tests Start: 01/02/20 17:36 Freq: Status: Active Protocol: Document 01/02/20 16:45 DCW (Rec: 01/02/20 18:00 DCW [id number]) Special Tests Knee Special Tests Kin Test Test Results Positive left Comments Performed in sitting Posterior Draw Test Results Negative Anterior Draw Test Results Negative Varus- 25 Degrees Test Results Negative Varus- 0 Degrees Test Results Negative Valgus- 25 Degrees Test Results Positive left Valgus- 0 Degrees Test Results Positive left PT-OP-M Strength Start: 01/02/20 17:36 Freq: Status: Active Protocol: Document 09/20/20 16:00 DCW (Rec: 09/20/20 16:14 DCW [id number]) Hip Strength Hip Manual Muscle Testing Right Flexion (L2) 4+ Good+ Abduction 4 Good Adduction 4 Good Left Flexion (L2) 4- Good- Abduction 3+ Fair+ Adduction 4- Good- Knee Strength Knee Manual Muscle Testing Right Flexion (S2) 4+ Good+ Extension (L3) 4+ Good+ Left Flexion (S2) 3+ Fair+ Extension (L3) 3+ Fair+ Ankle/Foot Strength Ankle and Foot Manual Muscle Testing Right Dorsiflexion (L4) 4- Good- Plantarflexion (S1) 3 Fair Inversion 4 Good Eversion (S1) 4 Good Left Dorsiflexion (L4) 4- Good- Plantarflexion (S1) 3 Fair Inversion 3- Fair- Eversion (S1) 3- Fair- PT-OP-Q Treatments Start: 01/02/20 17:36 Freq: Status: Active Protocol: Document 10/25/20 16:00 DCW (Rec: 10/25/20 16:42 DCW [id number]) Cardio Equipment Upper Body Ergometer (UBE) Duration (Minutes) 6 Seat Position in Wheelchair Height 2.5 Therapeutic Exercises Sitting Exercises 9 Sitting Exercise Name Hip Adduction Ball Squeeze Side bilateral 8 Sitting Exercise Name Balloon Volley Resistance 2# 7 Sitting Exercise Name Overhead Press Side bilateral Resistance 10# Equipment Used PVC 6 Sitting Exercise Name Biceps Curls Side bilateral Resistance 10# Equipment Used PVC 5 Sitting Exercise Name Hip Abduction Side bilateral Resistance Lv 3 Equipment Used T-band 4 Sitting Exercise Name Ankle DF/PF Side bilateral Resistance Lv 3 Equipment Used T-band 3 Sitting Exercise Name HS Curls Side bilateral Resistance Lv 3 Equipment Used T-band 2 Sitting Exercise Name Marching Side bilateral Resistance 5# 1 Sitting Exercise Name LAQ Side bilateral Resistance 5# Standing Exercises 1 Standing Exercise Name Sit<->Stand Equipment Used // bars Reps/Minutes x2 Comments Max Ax1 PT-OP-T Assessment and Plan Start: 01/02/20 17:36 Freq: Status: Active Protocol: Document 10/25/20 16:00 DCW (Rec: 10/25/20 16:42 DCW [id number]) Physical Therapy Assessment Goals Four Impairment Multiple falls at care center Sports Equipment Racker Goal (LTG) Pt to report no falls over the course of two months LTG Duration Met Three Impairment Transfers Sports Equipment Racker Goal (LTG) Pt to perform stand-pivot transfer CGA with FWW LTG Duration 12/21/20 Two Impairment Pt unable to tolerate standing for more than 10 seconds Sports Equipment Racker Goal (LTG) Pt to stand using FWW /c Min Ax1 for 90 seconds LTG Duration 12/21/20 One Impairment LE weakness Sports Equipment Racker Goal (LTG) Ankle and knee MMT to to 3+/5 bilaterally Hip MMT to 4/5 bilaterally LTG Duration 12/21/20 Assessment Summary Assessment Pt once again performed very poorly with sit<->stands, was only able to complete two full stands with Max Ax1. Physical Therapy Plan Frequency and Duration Frequency of Treatment 1x/Week Duration of Treatment 12 weeks Plan of Care Start Date 09/20/20 Plan of Care End Date 12/21/20 Therapeutic Interventions Therapeutic Interventions Aquatic Therapy,Balance Training,Coordination Training ,Gait Training,Home Exercise Program,Joint Mobilizations, Manual Therapy,Neuromuscular Re-education,Patient/Caregiver Education,Self-Care/Home Management,Soft Tissue Mobilization,Therapeutic Activities,Therapeutic Exercises,Wheelchair Management Next Visit Focus/Plan Next Note Type Treatment Note Next Visit Plan standing with fWW, transfer training, increased activity tolerance
--- NOTE | 2020-11-01 16:50 | PT.OTN ---
Current Diagnoses Multiple sclerosis (11/01/20) Pain in left knee (11/01/20) Pain in left ankle and joints of left foot (11/01/20) Weakness (11/01/20) Other fatigue (11/01/20) Physical Therapy Treatment Note PT-OP-A Visit Information Start: 01/02/20 17:36 Freq: Status: Active Protocol: Document 11/01/20 16:00 DCW (Rec: 11/01/20 16:50 DCW [id number]) Out-Patient Physical Therapy Visit Information Visit Information Visit Type Treatment Note Visit Start Time 16:00 Visit Stop Time 16:45 Total Visit Minutes 45 Visit Number 32 Number of AIR TWIST OPERATOR Visits 0 Evaluation Information Evaluation Date 01/02/20 PT-OP-B Current Condition Start: 01/02/20 17:36 Freq: Status: Active Protocol: Document 01/02/20 16:45 DCW (Rec: 01/02/20 18:00 DCW [id number]) Current Condition History of Current Condition Onset Date Multi-year history Current Complaints MS, fatigue, weakness, L knee pain, L ankle pain History of Current Condition Pt is a 64 year old female with a long-standing history of Multiple Sclerosis. Pt currently mobilizes in her manual wheelchair, and lives at a local care center. Pt has a long-standing history of Physical Therapy off and on at this facility over the past six years, and was working with PT on ambulation, strengthening, and transfers prior to the Covid-19 shut- down, but pt was discharged after her care facility had a mandatory shut-down, and pt was unable to attend physical therapy for ~3 months. Over this time, pt unfortunately spent most of her time lying in bed, which got even worse after she suffered multiple falls when trying to transfer, resulting in a sore left knee and ankle, and an overall refusal to do anything out of bed. Pt reports extreme pain when doing anything in standing, and she feels she has gotten substantially weaker since her last PT session. Pt's sister and [id number] also attended her session today, and report they are trying to get her in for an Ortho consult, and just left a message hoping to schedule an appointment earlier today. Prior Treatments and Tests Prior history of PT Knee x-ray: IMPRESSION: Moderate medial compartment degenerative knee joint osteoarthritis, no fracture found. If unusual symptoms persist followup by MR or delayed plain film imaging may be warranted. per Chauncey Dia M.D. on 12/01/2019 Ankle x-ray: IMPRESSION: No acute trauma found. Exostosis and chronic appearing accessory ossicle or old avulsion fragment as noted. per Chauncey Dia M.D. on Future Testing and Treatments Planned Possible MRI, Ortho consult Treatment Goals Patient/Caregiver Goals Pt wants to transfer more safely PT-OP-C Subjective Start: 01/02/20 17:36 Freq: Status: Active Protocol: Document 11/01/20 16:00 DCW (Rec: 11/01/20 16:50 DCW [id number]) OP-PT Subjective Patient Comments Patient Comments Pt feeling pretty good today, no concerns currently. PT-OP-F Manual Assessment Start: 01/02/20 17:36 Freq: Status: Active Protocol: Document 09/20/20 16:00 DCW (Rec: 09/20/20 16:14 DCW [id number]) Manual Assessments Joint Mobility Assessment Joint Mobility Assessment Continued increased valgus laxity PT-OP-G Mobility & Gait Start: 01/02/20 17:36 Freq: Status: Active Protocol: Document 09/20/20 16:00 DCW (Rec: 09/20/20 16:14 DCW [id number]) OP Mobility Evaluation Transfers Sit to Stand Mod Ax1 in // bars, verbal cues for hand placement OP Gait Assessment Factors Limiting Gait Function Factors Limiting Gait Function Abnormal Tonal Influences, Decreased Activity Tolerance, Decreased Strength,Difficulty Following Directions, Incoordination,Limited Range of Motion,Pain,Poor Balance, Poor Safety Awareness Comments Gait Comments Unable to perform gait activities or pre-gait weight- shift in // bars PT-OP-L Special Tests Start: 01/02/20 17:36 Freq: Status: Active Protocol: Document 01/02/20 16:45 DCW (Rec: 01/02/20 18:00 DCW [id number]) Special Tests Knee Special Tests Kin Test Test Results Positive left Comments Performed in sitting Posterior Draw Test Results Negative Anterior Draw Test Results Negative Varus- 25 Degrees Test Results Negative Varus- 0 Degrees Test Results Negative Valgus- 25 Degrees Test Results Positive left Valgus- 0 Degrees Test Results Positive left PT-OP-M Strength Start: 01/02/20 17:36 Freq: Status: Active Protocol: Document 09/20/20 16:00 DCW (Rec: 09/20/20 16:14 DCW [id number]) Hip Strength Hip Manual Muscle Testing Right Flexion (L2) 4+ Good+ Abduction 4 Good Adduction 4 Good Left Flexion (L2) 4- Good- Abduction 3+ Fair+ Adduction 4- Good- Knee Strength Knee Manual Muscle Testing Right Flexion (S2) 4+ Good+ Extension (L3) 4+ Good+ Left Flexion (S2) 3+ Fair+ Extension (L3) 3+ Fair+ Ankle/Foot Strength Ankle and Foot Manual Muscle Testing Right Dorsiflexion (L4) 4- Good- Plantarflexion (S1) 3 Fair Inversion 4 Good Eversion (S1) 4 Good Left Dorsiflexion (L4) 4- Good- Plantarflexion (S1) 3 Fair Inversion 3- Fair- Eversion (S1) 3- Fair- PT-OP-Q Treatments Start: 01/02/20 17:36 Freq: Status: Active Protocol: Document 11/01/20 16:00 DCW (Rec: 11/01/20 16:50 DCW [id number]) Cardio Equipment Upper Body Ergometer (UBE) Duration (Minutes) 6 Seat Position in Wheelchair Height 2.5 Therapeutic Exercises Sitting Exercises 9 Sitting Exercise Name Hip Adduction Ball Squeeze Side bilateral 8 Sitting Exercise Name Balloon Volley Resistance 2# 7 Sitting Exercise Name Overhead Press Side bilateral Resistance 10# Equipment Used PVC 6 Sitting Exercise Name Biceps Curls Side bilateral Resistance 10# Equipment Used PVC 5 Sitting Exercise Name Hip Abduction Side bilateral Resistance Lv 3 Equipment Used T-band 4 Sitting Exercise Name Ankle DF/PF/Inv/Ev Side bilateral Resistance Lv 3 Equipment Used T-band 3 Sitting Exercise Name HS Curls Side bilateral Resistance Lv 3 Equipment Used T-band 2 Sitting Exercise Name Marching Side bilateral Resistance 5# 1 Sitting Exercise Name LAQ Side bilateral Resistance 5# Standing Exercises 1 Standing Exercise Name Sit<->Stand Equipment Used // bars Reps/Minutes 3x5 Comments Min Ax1 Neuro Re-Education Treatment Coordination Activities 1 Details Cone activities Equipment Cones Speed 5# ankle weight each ankle Comments Using feet to knock over cones for coordination training/ neuromuscular re-education PT-OP-T Assessment and Plan Start: 01/02/20 17:36 Freq: Status: Active Protocol: Document 11/01/20 16:00 DCW (Rec: 11/01/20 16:50 DCW [id number]) Physical Therapy Assessment Impairments Impairments Activity Tolerance,Balance, Functional Activities, Functional Mobility,Gait,Pain, Posture,ROM,Soft Tissue Mobility,Strength,Transfers Goals Four Impairment Multiple falls at care center Senior Living Goal (LTG) Pt to report no falls over the course of two months LTG Duration Met Three Impairment Transfers Histology Teacher Goal (LTG) Pt to perform stand-pivot transfer CGA with FWW LTG Duration 12/21/20 Two Impairment Pt unable to tolerate standing for more than 10 seconds Senior Living Goal (LTG) Pt to stand using FWW /c Min Ax1 for 90 seconds LTG Duration 12/21/20 One Impairment LE weakness Histology Teacher Goal (LTG) Ankle and knee MMT to to 3+/5 bilaterally Hip MMT to 4/5 bilaterally LTG Duration 12/21/20 Assessment Summary Assessment Sit<->stand much better today, no concerns with increased weakness or fatigue compared to usual. Physical Therapy Plan Frequency and Duration Frequency of Treatment 1x/Week Duration of Treatment 12 weeks Plan of Care Start Date 09/20/20 Plan of Care End Date 12/21/20 Therapeutic Interventions Therapeutic Interventions Aquatic Therapy,Balance Training,Coordination Training ,Gait Training,Home Exercise Program,Joint Mobilizations, Manual Therapy,Neuromuscular Re-education,Patient/Caregiver Education,Self-Care/Home Management,Soft Tissue Mobilization,Therapeutic Activities,Therapeutic Exercises,Wheelchair Management Next Visit Focus/Plan Next Note Type Treatment Note Next Visit Plan standing with fWW, transfer training, increased activity tolerance
--- NOTE | 2020-11-08 16:49 | PT.OTN ---
Current Diagnoses Multiple sclerosis (11/08/20) Pain in left knee (11/08/20) Pain in left ankle and joints of left foot (11/08/20) Weakness (11/08/20) Other fatigue (11/08/20) Physical Therapy Treatment Note PT-OP-A Visit Information Start: 01/02/20 17:36 Freq: Status: Active Protocol: Document 11/08/20 16:00 DCW (Rec: 11/08/20 16:49 DCW [id number]) Out-Patient Physical Therapy Visit Information Visit Information Visit Type Treatment Note Visit Start Time 16:00 Visit Stop Time 16:45 Total Visit Minutes 45 Visit Number 33 Number of GEAR GRINDER Visits 0 Evaluation Information Evaluation Date 01/02/20 PT-OP-B Current Condition Start: 01/02/20 17:36 Freq: Status: Active Protocol: Document 01/02/20 16:45 DCW (Rec: 01/02/20 18:00 DCW [id number]) Current Condition History of Current Condition Onset Date Multi-year history Current Complaints MS, fatigue, weakness, L knee pain, L ankle pain History of Current Condition Pt is a 64 year old female with a long-standing history of Multiple Sclerosis. Pt currently mobilizes in her manual wheelchair, and lives at a local care center. Pt has a long-standing history of Physical Therapy off and on at this facility over the past six years, and was working with PT on ambulation, strengthening, and transfers prior to the Covid-19 shut- down, but pt was discharged after her care facility had a mandatory shut-down, and pt was unable to attend physical therapy for ~3 months. Over this time, pt unfortunately spent most of her time lying in bed, which got even worse after she suffered multiple falls when trying to transfer, resulting in a sore left knee and ankle, and an overall refusal to do anything out of bed. Pt reports extreme pain when doing anything in standing, and she feels she has gotten substantially weaker since her last PT session. Pt's sister and [id number] also attended her session today, and report they are trying to get her in for an Ortho consult, and just left a message hoping to schedule an appointment earlier today. Prior Treatments and Tests Prior history of PT Knee x-ray: IMPRESSION: Moderate medial compartment degenerative knee joint osteoarthritis, no fracture found. If unusual symptoms persist followup by MR or delayed plain film imaging may be warranted. per Chauncey Dia M.D. on 12/01/2019 Ankle x-ray: IMPRESSION: No acute trauma found. Exostosis and chronic appearing accessory ossicle or old avulsion fragment as noted. per Chauncey Dia M.D. on Future Testing and Treatments Planned Possible MRI, Ortho consult Treatment Goals Patient/Caregiver Goals Pt wants to transfer more safely PT-OP-C Subjective Start: 01/02/20 17:36 Freq: Status: Active Protocol: Document 11/08/20 16:00 DCW (Rec: 11/08/20 16:49 DCW [id number]) OP-PT Subjective Patient Comments Patient Comments Pt doing well today. PT-OP-F Manual Assessment Start: 01/02/20 17:36 Freq: Status: Active Protocol: Document 09/20/20 16:00 DCW (Rec: 09/20/20 16:14 DCW [id number]) Manual Assessments Joint Mobility Assessment Joint Mobility Assessment Continued increased valgus laxity PT-OP-G Mobility & Gait Start: 01/02/20 17:36 Freq: Status: Active Protocol: Document 09/20/20 16:00 DCW (Rec: 09/20/20 16:14 DCW [id number]) OP Mobility Evaluation Transfers Sit to Stand Mod Ax1 in // bars, verbal cues for hand placement OP Gait Assessment Factors Limiting Gait Function Factors Limiting Gait Function Abnormal Tonal Influences, Decreased Activity Tolerance, Decreased Strength,Difficulty Following Directions, Incoordination,Limited Range of Motion,Pain,Poor Balance, Poor Safety Awareness Comments Gait Comments Unable to perform gait activities or pre-gait weight- shift in // bars PT-OP-L Special Tests Start: 01/02/20 17:36 Freq: Status: Active Protocol: Document 01/02/20 16:45 DCW (Rec: 01/02/20 18:00 DCW [id number]) Special Tests Knee Special Tests Kin Test Test Results Positive left Comments Performed in sitting Posterior Draw Test Results Negative Anterior Draw Test Results Negative Varus- 25 Degrees Test Results Negative Varus- 0 Degrees Test Results Negative Valgus- 25 Degrees Test Results Positive left Valgus- 0 Degrees Test Results Positive left PT-OP-M Strength Start: 01/02/20 17:36 Freq: Status: Active Protocol: Document 09/20/20 16:00 DCW (Rec: 09/20/20 16:14 DCW [id number]) Hip Strength Hip Manual Muscle Testing Right Flexion (L2) 4+ Good+ Abduction 4 Good Adduction 4 Good Left Flexion (L2) 4- Good- Abduction 3+ Fair+ Adduction 4- Good- Knee Strength Knee Manual Muscle Testing Right Flexion (S2) 4+ Good+ Extension (L3) 4+ Good+ Left Flexion (S2) 3+ Fair+ Extension (L3) 3+ Fair+ Ankle/Foot Strength Ankle and Foot Manual Muscle Testing Right Dorsiflexion (L4) 4- Good- Plantarflexion (S1) 3 Fair Inversion 4 Good Eversion (S1) 4 Good Left Dorsiflexion (L4) 4- Good- Plantarflexion (S1) 3 Fair Inversion 3- Fair- Eversion (S1) 3- Fair- PT-OP-Q Treatments Start: 01/02/20 17:36 Freq: Status: Active Protocol: Document 11/08/20 16:00 DCW (Rec: 11/08/20 16:49 DCW [id number]) Cardio Equipment Upper Body Ergometer (UBE) Duration (Minutes) 6 Seat Position in Wheelchair Height 2.5 Therapeutic Exercises Sitting Exercises 9 Sitting Exercise Name Hip Adduction Ball Squeeze Side bilateral 8 Sitting Exercise Name Balloon Volley Resistance 2# 7 Sitting Exercise Name Overhead Press Side bilateral Resistance 10# Equipment Used PVC 6 Sitting Exercise Name Biceps Curls Side bilateral Resistance 10# Equipment Used PVC 5 Sitting Exercise Name Hip Abduction Side bilateral Resistance Lv 3 Equipment Used T-band 4 Sitting Exercise Name Ankle DF/PF/Inv/Ev Side bilateral Resistance Lv 3 Equipment Used T-band 3 Sitting Exercise Name HS Curls Side bilateral Resistance Lv 3 Equipment Used T-band 2 Sitting Exercise Name Marching Side bilateral Resistance 5# 1 Sitting Exercise Name LAQ Side bilateral Resistance 5# Standing Exercises 1 Standing Exercise Name Sit<->Stand Equipment Used // bars Reps/Minutes 3x5 Comments Min Ax1 PT-OP-T Assessment and Plan Start: 01/02/20 17:36 Freq: Status: Active Protocol: Document 11/08/20 16:00 DCW (Rec: 11/08/20 16:49 DCW [id number]) Physical Therapy Assessment Impairments Impairments Activity Tolerance,Balance, Functional Activities, Functional Mobility,Gait,Pain, Posture,ROM,Soft Tissue Mobility,Strength,Transfers Goals Four Impairment Multiple falls at care center Utilities Operator Goal (LTG) Pt to report no falls over the course of two months LTG Duration Met Three Impairment Transfers Utilities Operator Goal (LTG) Pt to perform stand-pivot transfer CGA with FWW LTG Duration 12/21/20 Two Impairment Pt unable to tolerate standing for more than 10 seconds Utilities Operator Goal (LTG) Pt to stand using FWW /c Min Ax1 for 90 seconds LTG Duration 12/21/20 One Impairment LE weakness Utilities Operator Goal (LTG) Ankle and knee MMT to to 3+/5 bilaterally Hip MMT to 4/5 bilaterally LTG Duration 12/21/20 Assessment Summary Assessment Pt relied on therapist a little bit more today with sit <->stands. Physical Therapy Plan Frequency and Duration Frequency of Treatment 1x/Week Duration of Treatment 12 weeks Plan of Care Start Date 09/20/20 Plan of Care End Date 12/21/20 Therapeutic Interventions Therapeutic Interventions Aquatic Therapy,Balance Training,Coordination Training ,Gait Training,Home Exercise Program,Joint Mobilizations, Manual Therapy,Neuromuscular Re-education,Patient/Caregiver Education,Self-Care/Home Management,Soft Tissue Mobilization,Therapeutic Activities,Therapeutic Exercises,Wheelchair Management Next Visit Focus/Plan Next Note Type Treatment Note Next Visit Plan standing with fWW, transfer training, increased activity tolerance
--- NOTE | 2020-11-15 16:51 | PT.OTN ---
Current Diagnoses Multiple sclerosis (11/15/20) Pain in left knee (11/15/20) Pain in left ankle and joints of left foot (11/15/20) Weakness (11/15/20) Other fatigue (11/15/20) Physical Therapy Treatment Note PT-OP-A Visit Information Start: 01/02/20 17:36 Freq: Status: Active Protocol: Document 11/15/20 16:00 DCW (Rec: 11/15/20 16:51 DCW [id number]) Out-Patient Physical Therapy Visit Information Visit Information Visit Type Treatment Note Visit Start Time 16:00 Visit Stop Time 16:45 Total Visit Minutes 45 Visit Number 34 Number of MAKEUP SALES ADVISOR Visits 0 Evaluation Information Evaluation Date 01/02/20 PT-OP-B Current Condition Start: 01/02/20 17:36 Freq: Status: Active Protocol: Document 01/02/20 16:45 DCW (Rec: 01/02/20 18:00 DCW [id number]) Current Condition History of Current Condition Onset Date Multi-year history Current Complaints MS, fatigue, weakness, L knee pain, L ankle pain History of Current Condition Pt is a 64 year old female with a long-standing history of Multiple Sclerosis. Pt currently mobilizes in her manual wheelchair, and lives at a local care center. Pt has a long-standing history of Physical Therapy off and on at this facility over the past six years, and was working with PT on ambulation, strengthening, and transfers prior to the Covid-19 shut- down, but pt was discharged after her care facility had a mandatory shut-down, and pt was unable to attend physical therapy for ~3 months. Over this time, pt unfortunately spent most of her time lying in bed, which got even worse after she suffered multiple falls when trying to transfer, resulting in a sore left knee and ankle, and an overall refusal to do anything out of bed. Pt reports extreme pain when doing anything in standing, and she feels she has gotten substantially weaker since her last PT session. Pt's sister and [id number] also attended her session today, and report they are trying to get her in for an Ortho consult, and just left a message hoping to schedule an appointment earlier today. Prior Treatments and Tests Prior history of PT Knee x-ray: IMPRESSION: Moderate medial compartment degenerative knee joint osteoarthritis, no fracture found. If unusual symptoms persist followup by MR or delayed plain film imaging may be warranted. per Chauncey Dia M.D. on 12/01/2019 Ankle x-ray: IMPRESSION: No acute trauma found. Exostosis and chronic appearing accessory ossicle or old avulsion fragment as noted. per Chauncey Dia M.D. on Future Testing and Treatments Planned Possible MRI, Ortho consult Treatment Goals Patient/Caregiver Goals Pt wants to transfer more safely PT-OP-C Subjective Start: 01/02/20 17:36 Freq: Status: Active Protocol: Document 11/15/20 16:00 DCW (Rec: 11/15/20 16:51 DCW [id number]) OP-PT Subjective Patient Comments Patient Comments Pt notes she is doing pretty good today. PT-OP-F Manual Assessment Start: 01/02/20 17:36 Freq: Status: Active Protocol: Document 09/20/20 16:00 DCW (Rec: 09/20/20 16:14 DCW [id number]) Manual Assessments Joint Mobility Assessment Joint Mobility Assessment Continued increased valgus laxity PT-OP-G Mobility & Gait Start: 01/02/20 17:36 Freq: Status: Active Protocol: Document 09/20/20 16:00 DCW (Rec: 09/20/20 16:14 DCW [id number]) OP Mobility Evaluation Transfers Sit to Stand Mod Ax1 in // bars, verbal cues for hand placement OP Gait Assessment Factors Limiting Gait Function Factors Limiting Gait Function Abnormal Tonal Influences, Decreased Activity Tolerance, Decreased Strength,Difficulty Following Directions, Incoordination,Limited Range of Motion,Pain,Poor Balance, Poor Safety Awareness Comments Gait Comments Unable to perform gait activities or pre-gait weight- shift in // bars PT-OP-L Special Tests Start: 01/02/20 17:36 Freq: Status: Active Protocol: Document 01/02/20 16:45 DCW (Rec: 01/02/20 18:00 DCW [id number]) Special Tests Knee Special Tests Kin Test Test Results Positive left Comments Performed in sitting Posterior Draw Test Results Negative Anterior Draw Test Results Negative Varus- 25 Degrees Test Results Negative Varus- 0 Degrees Test Results Negative Valgus- 25 Degrees Test Results Positive left Valgus- 0 Degrees Test Results Positive left PT-OP-M Strength Start: 01/02/20 17:36 Freq: Status: Active Protocol: Document 09/20/20 16:00 DCW (Rec: 09/20/20 16:14 DCW [id number]) Hip Strength Hip Manual Muscle Testing Right Flexion (L2) 4+ Good+ Abduction 4 Good Adduction 4 Good Left Flexion (L2) 4- Good- Abduction 3+ Fair+ Adduction 4- Good- Knee Strength Knee Manual Muscle Testing Right Flexion (S2) 4+ Good+ Extension (L3) 4+ Good+ Left Flexion (S2) 3+ Fair+ Extension (L3) 3+ Fair+ Ankle/Foot Strength Ankle and Foot Manual Muscle Testing Right Dorsiflexion (L4) 4- Good- Plantarflexion (S1) 3 Fair Inversion 4 Good Eversion (S1) 4 Good Left Dorsiflexion (L4) 4- Good- Plantarflexion (S1) 3 Fair Inversion 3- Fair- Eversion (S1) 3- Fair- PT-OP-Q Treatments Start: 01/02/20 17:36 Freq: Status: Active Protocol: Document 11/15/20 16:00 DCW (Rec: 11/15/20 16:51 DCW [id number]) Cardio Equipment Upper Body Ergometer (UBE) Duration (Minutes) 6 Seat Position in Wheelchair Height 2.5 Therapeutic Exercises Sitting Exercises 9 Sitting Exercise Name Hip Adduction Ball Squeeze Side bilateral 8 Sitting Exercise Name Balloon Volley Resistance 2# 7 Sitting Exercise Name Overhead Press Side bilateral Resistance 10# Equipment Used PVC 6 Sitting Exercise Name Biceps Curls Side bilateral Resistance 10# Equipment Used PVC 5 Sitting Exercise Name Hip Abduction Side bilateral Resistance Lv 3 Equipment Used T-band 4 Sitting Exercise Name Ankle DF/PF/Inv/Ev Side bilateral Resistance Lv 3 Equipment Used T-band 3 Sitting Exercise Name HS Curls Side bilateral Resistance Lv 3 Equipment Used T-band 2 Sitting Exercise Name Marching Side bilateral Resistance 5# 1 Sitting Exercise Name LAQ Side bilateral Resistance 5# Standing Exercises 1 Standing Exercise Name Sit<->Stand Equipment Used // bars Reps/Minutes 3x5 Comments Min Ax1 Neuro Re-Education Treatment Coordination Activities 1 Details Cone activities Equipment Cones Speed 5# ankle weight each ankle Comments Using feet to knock over cones for coordination training/ neuromuscular re-education PT-OP-T Assessment and Plan Start: 01/02/20 17:36 Freq: Status: Active Protocol: Document 11/15/20 16:00 SPARKLE (Rec: 11/15/20 16:51 DCW [id number]) Physical Therapy Assessment Impairments Impairments Activity Tolerance,Balance, Functional Activities, Functional Mobility,Gait,Pain, Posture,ROM,Soft Tissue Mobility,Strength,Transfers Goals Four Impairment Multiple falls at care center Detention Goal (LTG) Pt to report no falls over the course of two months LTG Duration Met Three Impairment Transfers Detention Goal (LTG) Pt to perform stand-pivot transfer CGA with FWW LTG Duration 12/21/20 Two Impairment Pt unable to tolerate standing for more than 10 seconds Plate Glass Installer Goal (LTG) Pt to stand using FWW /c Min Ax1 for 90 seconds LTG Duration 12/21/20 One Impairment LE weakness Plate Glass Installer Goal (LTG) Ankle and knee MMT to to 3+/5 bilaterally Hip MMT to 4/5 bilaterally LTG Duration 12/21/20 Assessment Summary Assessment Pt showing slight improvement over her recent decline in sit <->stand ability. Therapist still doing some of the work, but pt able to assist more. Physical Therapy Plan Frequency and Duration Frequency of Treatment 1x/Week Duration of Treatment 12 weeks Plan of Care Start Date 09/20/20 Plan of Care End Date 12/21/20 Therapeutic Interventions Therapeutic Interventions Aquatic Therapy,Balance Training,Coordination Training ,Gait Training,Home Exercise Program,Joint Mobilizations, Manual Therapy,Neuromuscular Re-education,Patient/Caregiver Education,Self-Care/Home Management,Soft Tissue Mobilization,Therapeutic Activities,Therapeutic Exercises,Wheelchair Management Next Visit Focus/Plan Next Note Type Treatment Note Next Visit Plan standing with fWW, transfer training, increased activity tolerance
--- NOTE | 2020-11-22 16:30 | PT.OTN ---
Current Diagnoses Multiple sclerosis (11/22/20) Pain in left knee (11/22/20) Pain in left ankle and joints of left foot (11/22/20) Weakness (11/22/20) Other fatigue (11/22/20) Physical Therapy Treatment Note PT-OP-A Visit Information Start: 01/02/20 17:36 Freq: Status: Active Protocol: Document 11/22/20 16:00 DCW (Rec: 11/22/20 16:30 DCW [id number]) Out-Patient Physical Therapy Visit Information Visit Information Visit Type Treatment Note Visit Start Time 16:00 Visit Stop Time 16:25 Total Visit Minutes 25 Visit Number 35 Number of NEUROBIOLOGIST Visits 0 Evaluation Information Evaluation Date 01/02/20 PT-OP-B Current Condition Start: 01/02/20 17:36 Freq: Status: Active Protocol: Document 01/02/20 16:45 DCW (Rec: 01/02/20 18:00 DCW [id number]) Current Condition History of Current Condition Onset Date Multi-year history Current Complaints MS, fatigue, weakness, L knee pain, L ankle pain History of Current Condition Pt is a 64 year old female with a long-standing history of Multiple Sclerosis. Pt currently mobilizes in her manual wheelchair, and lives at a local care center. Pt has a long-standing history of Physical Therapy off and on at this facility over the past six years, and was working with PT on ambulation, strengthening, and transfers prior to the Covid-19 shut- down, but pt was discharged after her care facility had a mandatory shut-down, and pt was unable to attend physical therapy for ~3 months. Over this time, pt unfortunately spent most of her time lying in bed, which got even worse after she suffered multiple falls when trying to transfer, resulting in a sore left knee and ankle, and an overall refusal to do anything out of bed. Pt reports extreme pain when doing anything in standing, and she feels she has gotten substantially weaker since her last PT session. Pt's sister and [id number] also attended her session today, and report they are trying to get her in for an Ortho consult, and just left a message hoping to schedule an appointment earlier today. Prior Treatments and Tests Prior history of PT Knee x-ray: IMPRESSION: Moderate medial compartment degenerative knee joint osteoarthritis, no fracture found. If unusual symptoms persist followup by MR or delayed plain film imaging may be warranted. per Chauncey Dia M.D. on 12/01/2019 Ankle x-ray: IMPRESSION: No acute trauma found. Exostosis and chronic appearing accessory ossicle or old avulsion fragment as noted. per Chauncey Dia M.D. on Future Testing and Treatments Planned Possible MRI, Ortho consult Treatment Goals Patient/Caregiver Goals Pt wants to transfer more safely PT-OP-C Subjective Start: 01/02/20 17:36 Freq: Status: Active Protocol: Document 11/22/20 16:00 DCW (Rec: 11/22/20 16:30 DCW [id number]) OP-PT Subjective Patient Comments Patient Comments Pt notes she doesn't really feel that great today. PT-OP-F Manual Assessment Start: 01/02/20 17:36 Freq: Status: Active Protocol: Document 09/20/20 16:00 DCW (Rec: 09/20/20 16:14 DCW [id number]) Manual Assessments Joint Mobility Assessment Joint Mobility Assessment Continued increased valgus laxity PT-OP-G Mobility & Gait Start: 01/02/20 17:36 Freq: Status: Active Protocol: Document 09/20/20 16:00 DCW (Rec: 09/20/20 16:14 DCW [id number]) OP Mobility Evaluation Transfers Sit to Stand Mod Ax1 in // bars, verbal cues for hand placement OP Gait Assessment Factors Limiting Gait Function Factors Limiting Gait Function Abnormal Tonal Influences, Decreased Activity Tolerance, Decreased Strength,Difficulty Following Directions, Incoordination,Limited Range of Motion,Pain,Poor Balance, Poor Safety Awareness Comments Gait Comments Unable to perform gait activities or pre-gait weight- shift in // bars PT-OP-L Special Tests Start: 01/02/20 17:36 Freq: Status: Active Protocol: Document 01/02/20 16:45 DCW (Rec: 01/02/20 18:00 DCW [id number]) Special Tests Knee Special Tests Kin Test Test Results Positive left Comments Performed in sitting Posterior Draw Test Results Negative Anterior Draw Test Results Negative Varus- 25 Degrees Test Results Negative Varus- 0 Degrees Test Results Negative Valgus- 25 Degrees Test Results Positive left Valgus- 0 Degrees Test Results Positive left PT-OP-M Strength Start: 01/02/20 17:36 Freq: Status: Active Protocol: Document 09/20/20 16:00 DCW (Rec: 09/20/20 16:14 DCW [id number]) Hip Strength Hip Manual Muscle Testing Right Flexion (L2) 4+ Good+ Abduction 4 Good Adduction 4 Good Left Flexion (L2) 4- Good- Abduction 3+ Fair+ Adduction 4- Good- Knee Strength Knee Manual Muscle Testing Right Flexion (S2) 4+ Good+ Extension (L3) 4+ Good+ Left Flexion (S2) 3+ Fair+ Extension (L3) 3+ Fair+ Ankle/Foot Strength Ankle and Foot Manual Muscle Testing Right Dorsiflexion (L4) 4- Good- Plantarflexion (S1) 3 Fair Inversion 4 Good Eversion (S1) 4 Good Left Dorsiflexion (L4) 4- Good- Plantarflexion (S1) 3 Fair Inversion 3- Fair- Eversion (S1) 3- Fair- PT-OP-Q Treatments Start: 01/02/20 17:36 Freq: Status: Active Protocol: Document 11/22/20 16:00 DCW (Rec: 11/22/20 16:30 DCW [id number]) Cardio Equipment Upper Body Ergometer (UBE) Duration (Minutes) 6 Seat Position in Wheelchair Height 2.5 Therapeutic Exercises Sitting Exercises 8 Sitting Exercise Name Balloon Volley Resistance 2# 7 Sitting Exercise Name Overhead Press Side bilateral Resistance 10# Equipment Used PVC 6 Sitting Exercise Name Biceps Curls Side bilateral Resistance 10# Equipment Used PVC 2 Sitting Exercise Name Marching Side bilateral Resistance 5# 1 Sitting Exercise Name LAQ Side bilateral Resistance 5# Standing Exercises 1 Standing Exercise Name Sit<->Stand Equipment Used // bars Reps/Minutes x3 Comments Min Ax1 PT-OP-T Assessment and Plan Start: 01/02/20 17:36 Freq: Status: Active Protocol: Document 11/22/20 16:00 DCW (Rec: 11/22/20 16:30 DCW [id number]) Physical Therapy Assessment Assessment Summary Assessment Pt ended up requesting an early stop, appeared to be having some digestive issues. Physical Therapy Plan Frequency and Duration Frequency of Treatment 1x/Week Duration of Treatment 12 weeks Plan of Care Start Date 09/20/20 Plan of Care End Date 12/21/20 Therapeutic Interventions Therapeutic Interventions Aquatic Therapy,Balance Training,Coordination Training ,Gait Training,Home Exercise Program,Joint Mobilizations, Manual Therapy,Neuromuscular Re-education,Patient/Caregiver Education,Self-Care/Home Management,Soft Tissue Mobilization,Therapeutic Activities,Therapeutic Exercises,Wheelchair Management Next Visit Focus/Plan Next Note Type Treatment Note Next Visit Plan standing with fWW, transfer training, increased activity tolerance
--- NOTE | 2020-11-29 15:14 | PT.OTN ---
Current Diagnoses Multiple sclerosis (11/29/20) Pain in left knee (11/29/20) Pain in left ankle and joints of left foot (11/29/20) Weakness (11/29/20) Other fatigue (11/29/20) Physical Therapy Treatment Note PT-OP-A Visit Information Start: 01/02/20 17:36 Freq: Status: Active Protocol: Document 11/29/20 14:41 DCW (Rec: 11/29/20 15:14 DCW [id number]) Out-Patient Physical Therapy Visit Information Visit Information Visit Type Treatment Note Visit Note 11 min late Visit Start Time 14:41 Visit Stop Time 15:15 Total Visit Minutes 34 Visit Number 36 Number of LIGHT ARMORED RECONNAISSANCE OFFICER Visits 0 Evaluation Information Evaluation Date 01/02/20 PT-OP-B Current Condition Start: 01/02/20 17:36 Freq: Status: Active Protocol: Document 01/02/20 16:45 DCW (Rec: 01/02/20 18:00 DCW [id number]) Current Condition History of Current Condition Onset Date Multi-year history Current Complaints MS, fatigue, weakness, L knee pain, L ankle pain History of Current Condition Pt is a 64 year old female with a long-standing history of Multiple Sclerosis. Pt currently mobilizes in her manual wheelchair, and lives at a local care center. Pt has a long-standing history of Physical Therapy off and on at this facility over the past six years, and was working with PT on ambulation, strengthening, and transfers prior to the Covid-19 shut- down, but pt was discharged after her care facility had a mandatory shut-down, and pt was unable to attend physical therapy for ~3 months. Over this time, pt unfortunately spent most of her time lying in bed, which got even worse after she suffered multiple falls when trying to transfer, resulting in a sore left knee and ankle, and an overall refusal to do anything out of bed. Pt reports extreme pain when doing anything in standing, and she feels she has gotten substantially weaker since her last PT session. Pt's sister and [id number] also attended her session today, and report they are trying to get her in for an Ortho consult, and just left a message hoping to schedule an appointment earlier today. Prior Treatments and Tests Prior history of PT Knee x-ray: IMPRESSION: Moderate medial compartment degenerative knee joint osteoarthritis, no fracture found. If unusual symptoms persist followup by MR or delayed plain film imaging may be warranted. per Chauncey Dia M.D. on 12/01/2019 Ankle x-ray: IMPRESSION: No acute trauma found. Exostosis and chronic appearing accessory ossicle or old avulsion fragment as noted. per Chauncey Dia M.D. on Future Testing and Treatments Planned Possible MRI, Ortho consult Treatment Goals Patient/Caregiver Goals Pt wants to transfer more safely PT-OP-C Subjective Start: 01/02/20 17:36 Freq: Status: Active Protocol: Document 11/29/20 14:41 DCW (Rec: 11/29/20 15:14 DCW [id number]) OP-PT Subjective Patient Comments Patient Comments Pt notes she feels better today than she did last week. PT-OP-F Manual Assessment Start: 01/02/20 17:36 Freq: Status: Active Protocol: Document 09/20/20 16:00 DCW (Rec: 09/20/20 16:14 DCW [id number]) Manual Assessments Joint Mobility Assessment Joint Mobility Assessment Continued increased valgus laxity PT-OP-G Mobility & Gait Start: 01/02/20 17:36 Freq: Status: Active Protocol: Document 09/20/20 16:00 DCW (Rec: 09/20/20 16:14 DCW [id number]) OP Mobility Evaluation Transfers Sit to Stand Mod Ax1 in // bars, verbal cues for hand placement OP Gait Assessment Factors Limiting Gait Function Factors Limiting Gait Function Abnormal Tonal Influences, Decreased Activity Tolerance, Decreased Strength,Difficulty Following Directions, Incoordination,Limited Range of Motion,Pain,Poor Balance, Poor Safety Awareness Comments Gait Comments Unable to perform gait activities or pre-gait weight- shift in // bars PT-OP-L Special Tests Start: 01/02/20 17:36 Freq: Status: Active Protocol: Document 01/02/20 16:45 DCW (Rec: 01/02/20 18:00 DCW [id number]) Special Tests Knee Special Tests Kin Test Test Results Positive left Comments Performed in sitting Posterior Draw Test Results Negative Anterior Draw Test Results Negative Varus- 25 Degrees Test Results Negative Varus- 0 Degrees Test Results Negative Valgus- 25 Degrees Test Results Positive left Valgus- 0 Degrees Test Results Positive left PT-OP-M Strength Start: 01/02/20 17:36 Freq: Status: Active Protocol: Document 09/20/20 16:00 DCW (Rec: 09/20/20 16:14 DCW [id number]) Hip Strength Hip Manual Muscle Testing Right Flexion (L2) 4+ Good+ Abduction 4 Good Adduction 4 Good Left Flexion (L2) 4- Good- Abduction 3+ Fair+ Adduction 4- Good- Knee Strength Knee Manual Muscle Testing Right Flexion (S2) 4+ Good+ Extension (L3) 4+ Good+ Left Flexion (S2) 3+ Fair+ Extension (L3) 3+ Fair+ Ankle/Foot Strength Ankle and Foot Manual Muscle Testing Right Dorsiflexion (L4) 4- Good- Plantarflexion (S1) 3 Fair Inversion 4 Good Eversion (S1) 4 Good Left Dorsiflexion (L4) 4- Good- Plantarflexion (S1) 3 Fair Inversion 3- Fair- Eversion (S1) 3- Fair- PT-OP-Q Treatments Start: 01/02/20 17:36 Freq: Status: Active Protocol: Document 11/29/20 14:41 DCW (Rec: 11/29/20 15:14 DCW [id number]) Therapeutic Exercises Sitting Exercises 8 Sitting Exercise Name Balloon Volley Resistance 2# 7 Sitting Exercise Name Overhead Press Side bilateral Resistance 10# Equipment Used PVC 6 Sitting Exercise Name Biceps Curls Side bilateral Resistance 10# Equipment Used PVC 4 Sitting Exercise Name Ankle DF/PF/Inv/Ev Side bilateral Resistance Lv 3 Equipment Used T-band 3 Sitting Exercise Name HS Curls Side bilateral Resistance Lv 3 Equipment Used T-band Standing Exercises 1 Standing Exercise Name Sit<->Stand Equipment Used // bars Reps/Minutes x3 Comments Min Ax1 PT-OP-T Assessment and Plan Start: 01/02/20 17:36 Freq: Status: Active Protocol: Document 11/29/20 14:41 DCW (Rec: 11/29/20 15:14 DCW [id number]) Physical Therapy Assessment Impairments Impairments Activity Tolerance,Balance, Functional Activities, Functional Mobility,Gait,Pain, Posture,ROM,Soft Tissue Mobility,Strength,Transfers Goals Four Impairment Multiple falls at care center Credit Controller Goal (LTG) Pt to report no falls over the course of two months LTG Duration Met Three Impairment Transfers Custodial Goal (LTG) Pt to perform stand-pivot transfer CGA with FWW LTG Duration 12/21/20 Two Impairment Pt unable to tolerate standing for more than 10 seconds Credit Controller Goal (LTG) Pt to stand using FWW /c Min Ax1 for 90 seconds LTG Duration 12/21/20 One Impairment LE weakness Custodial Goal (LTG) Ankle and knee MMT to to 3+/5 bilaterally Hip MMT to 4/5 bilaterally LTG Duration 12/21/20 Assessment Summary Assessment Pt did very well today, much improved sit<->stand ability vs last week. Physical Therapy Plan Frequency and Duration Frequency of Treatment 1x/Week Duration of Treatment 12 weeks Plan of Care Start Date 09/20/20 Plan of Care End Date 12/21/20 Therapeutic Interventions Therapeutic Interventions Aquatic Therapy,Balance Training,Coordination Training ,Gait Training,Home Exercise Program,Joint Mobilizations, Manual Therapy,Neuromuscular Re-education,Patient/Caregiver Education,Self-Care/Home Management,Soft Tissue Mobilization,Therapeutic Activities,Therapeutic Exercises,Wheelchair Management Next Visit Focus/Plan Next Note Type Treatment Note Next Visit Plan standing with fWW, transfer training, increased activity tolerance
--- NOTE | 2020-12-12 15:59 | PT.OTN ---
Current Diagnoses Multiple sclerosis (12/12/20) Pain in left knee (12/12/20) Pain in left ankle and joints of left foot (12/12/20) Weakness (12/12/20) Other fatigue (12/12/20) Physical Therapy Treatment Note PT-OP-A Visit Information Start: 01/02/20 17:36 Freq: Status: Active Protocol: Document 12/12/20 15:20 DCW (Rec: 12/12/20 15:59 DCW [id number]) Out-Patient Physical Therapy Visit Information Visit Information Visit Type Treatment Note Visit Start Time 15:20 Visit Stop Time 16:00 Total Visit Minutes 40 Visit Number 37 Number of TECHNICAL PRODUCER Visits 0 Evaluation Information Evaluation Date 01/02/20 PT-OP-B Current Condition Start: 01/02/20 17:36 Freq: Status: Active Protocol: Document 01/02/20 16:45 DCW (Rec: 01/02/20 18:00 DCW [id number]) Current Condition History of Current Condition Onset Date Multi-year history Current Complaints MS, fatigue, weakness, L knee pain, L ankle pain History of Current Condition Pt is a 64 year old female with a long-standing history of Multiple Sclerosis. Pt currently mobilizes in her manual wheelchair, and lives at a local care center. Pt has a long-standing history of Physical Therapy off and on at this facility over the past six years, and was working with PT on ambulation, strengthening, and transfers prior to the Covid-19 shut- down, but pt was discharged after her care facility had a mandatory shut-down, and pt was unable to attend physical therapy for ~3 months. Over this time, pt unfortunately spent most of her time lying in bed, which got even worse after she suffered multiple falls when trying to transfer, resulting in a sore left knee and ankle, and an overall refusal to do anything out of bed. Pt reports extreme pain when doing anything in standing, and she feels she has gotten substantially weaker since her last PT session. Pt's sister and [id number] also attended her session today, and report they are trying to get her in for an Ortho consult, and just left a message hoping to schedule an appointment earlier today. Prior Treatments and Tests Prior history of PT Knee x-ray: IMPRESSION: Moderate medial compartment degenerative knee joint osteoarthritis, no fracture found. If unusual symptoms persist followup by MR or delayed plain film imaging may be warranted. per Chauncey Dia M.D. on 12/01/2019 Ankle x-ray: IMPRESSION: No acute trauma found. Exostosis and chronic appearing accessory ossicle or old avulsion fragment as noted. per Chauncey Dia M.D. on Future Testing and Treatments Planned Possible MRI, Ortho consult Treatment Goals Patient/Caregiver Goals Pt wants to transfer more safely PT-OP-C Subjective Start: 01/02/20 17:36 Freq: Status: Active Protocol: Document 12/12/20 15:20 DCW (Rec: 12/12/20 15:59 DCW [id number]) OP-PT Subjective Patient Comments Patient Comments Pt reports she is feeling pretty good today. PT-OP-F Manual Assessment Start: 01/02/20 17:36 Freq: Status: Active Protocol: Document 09/20/20 16:00 DCW (Rec: 09/20/20 16:14 DCW [id number]) Manual Assessments Joint Mobility Assessment Joint Mobility Assessment Continued increased valgus laxity PT-OP-G Mobility & Gait Start: 01/02/20 17:36 Freq: Status: Active Protocol: Document 09/20/20 16:00 DCW (Rec: 09/20/20 16:14 DCW [id number]) OP Mobility Evaluation Transfers Sit to Stand Mod Ax1 in // bars, verbal cues for hand placement OP Gait Assessment Factors Limiting Gait Function Factors Limiting Gait Function Abnormal Tonal Influences, Decreased Activity Tolerance, Decreased Strength,Difficulty Following Directions, Incoordination,Limited Range of Motion,Pain,Poor Balance, Poor Safety Awareness Comments Gait Comments Unable to perform gait activities or pre-gait weight- shift in // bars PT-OP-L Special Tests Start: 01/02/20 17:36 Freq: Status: Active Protocol: Document 01/02/20 16:45 DCW (Rec: 01/02/20 18:00 DCW [id number]) Special Tests Knee Special Tests Kin Test Test Results Positive left Comments Performed in sitting Posterior Draw Test Results Negative Anterior Draw Test Results Negative Varus- 25 Degrees Test Results Negative Varus- 0 Degrees Test Results Negative Valgus- 25 Degrees Test Results Positive left Valgus- 0 Degrees Test Results Positive left PT-OP-M Strength Start: 01/02/20 17:36 Freq: Status: Active Protocol: Document 09/20/20 16:00 DCW (Rec: 09/20/20 16:14 DCW [id number]) Hip Strength Hip Manual Muscle Testing Right Flexion (L2) 4+ Good+ Abduction 4 Good Adduction 4 Good Left Flexion (L2) 4- Good- Abduction 3+ Fair+ Adduction 4- Good- Knee Strength Knee Manual Muscle Testing Right Flexion (S2) 4+ Good+ Extension (L3) 4+ Good+ Left Flexion (S2) 3+ Fair+ Extension (L3) 3+ Fair+ Ankle/Foot Strength Ankle and Foot Manual Muscle Testing Right Dorsiflexion (L4) 4- Good- Plantarflexion (S1) 3 Fair Inversion 4 Good Eversion (S1) 4 Good Left Dorsiflexion (L4) 4- Good- Plantarflexion (S1) 3 Fair Inversion 3- Fair- Eversion (S1) 3- Fair- PT-OP-Q Treatments Start: 01/02/20 17:36 Freq: Status: Active Protocol: Document 12/12/20 15:20 DCW (Rec: 12/12/20 15:59 DCW [id number]) Cardio Equipment Upper Body Ergometer (UBE) Duration (Minutes) 6 Seat Position in Wheelchair Height 2.5 Therapeutic Exercises Sitting Exercises 8 Sitting Exercise Name Balloon Volley Resistance 2# 7 Sitting Exercise Name Overhead Press Side bilateral Resistance 10# Equipment Used PVC 6 Sitting Exercise Name Biceps Curls Side bilateral Resistance 10# Equipment Used PVC 4 Sitting Exercise Name Ankle DF/PF/Inv/Ev Side bilateral Resistance Lv 3 Equipment Used T-band 3 Sitting Exercise Name HS Curls Side bilateral Resistance Lv 3 Equipment Used T-band 2 Sitting Exercise Name Marching Side bilateral Resistance 5# 1 Sitting Exercise Name LAQ Side bilateral Resistance 5# Standing Exercises 1 Standing Exercise Name Sit<->Stand Equipment Used // bars Reps/Minutes 3x5 Comments Min Ax1 PT-OP-T Assessment and Plan Start: 01/02/20 17:36 Freq: Status: Active Protocol: Document 12/12/20 15:20 DCW (Rec: 12/12/20 15:59 DCW [id number]) Physical Therapy Assessment Impairments Impairments Activity Tolerance,Balance, Functional Activities, Functional Mobility,Gait,Pain, Posture,ROM,Soft Tissue Mobility,Strength,Transfers Goals Four Impairment Multiple falls at care center Mcc Goal (LTG) Pt to report no falls over the course of two months LTG Duration Met Three Impairment Transfers Mcc Goal (LTG) Pt to perform stand-pivot transfer CGA with FWW LTG Duration 12/21/20 Two Impairment Pt unable to tolerate standing for more than 10 seconds Mcc Goal (LTG) Pt to stand using FWW /c Min Ax1 for 90 seconds LTG Duration 12/21/20 One Impairment LE weakness Mail Forwarding System Markup Clerk Goal (LTG) Ankle and knee MMT to to 3+/5 bilaterally Hip MMT to 4/5 bilaterally LTG Duration 12/21/20 Assessment Summary Assessment Pt still doing a little better with sit<->stand than she has been, but much lower activity overall. Physical Therapy Plan Frequency and Duration Frequency of Treatment 1x/Week Duration of Treatment 12 weeks Plan of Care Start Date 09/20/20 Plan of Care End Date 12/21/20 Therapeutic Interventions Therapeutic Interventions Aquatic Therapy,Balance Training,Coordination Training ,Gait Training,Home Exercise Program,Joint Mobilizations, Manual Therapy,Neuromuscular Re-education,Patient/Caregiver Education,Self-Care/Home Management,Soft Tissue Mobilization,Therapeutic Activities,Therapeutic Exercises,Wheelchair Management Next Visit Focus/Plan Next Note Type Treatment Note Next Visit Plan standing with fWW, transfer training, increased activity tolerance
--- NOTE | 2020-12-20 17:50 | PT.OTN ---
Current Diagnoses Multiple sclerosis (12/20/20) Pain in left knee (12/20/20) Pain in left ankle and joints of left foot (12/20/20) Weakness (12/20/20) Other fatigue (12/20/20) Physical Therapy Treatment Note PT-OP-A Visit Information Start: 01/02/20 17:36 Freq: Status: Active Protocol: Document 12/20/20 16:02 DCW (Rec: 12/20/20 16:39 DCW [id number]) Out-Patient Physical Therapy Visit Information Visit Information Visit Type Progress Note Visit Start Time 16:02 Visit Stop Time 16:45 Total Visit Minutes 43 Visit Number 38 Number of TECHNOLOGY SALES CONSULTANT Visits 0 Evaluation Information Evaluation Date 01/02/20 PT-OP-B Current Condition Start: 01/02/20 17:36 Freq: Status: Active Protocol: Document 01/02/20 16:45 DCW (Rec: 01/02/20 18:00 DCW [id number]) Current Condition History of Current Condition Onset Date Multi-year history Current Complaints MS, fatigue, weakness, L knee pain, L ankle pain History of Current Condition Pt is a 64 year old female with a long-standing history of Multiple Sclerosis. Pt currently mobilizes in her manual wheelchair, and lives at a local care center. Pt has a long-standing history of Physical Therapy off and on at this facility over the past six years, and was working with PT on ambulation, strengthening, and transfers prior to the Covid-19 shut- down, but pt was discharged after her care facility had a mandatory shut-down, and pt was unable to attend physical therapy for ~3 months. Over this time, pt unfortunately spent most of her time lying in bed, which got even worse after she suffered multiple falls when trying to transfer, resulting in a sore left knee and ankle, and an overall refusal to do anything out of bed. Pt reports extreme pain when doing anything in standing, and she feels she has gotten substantially weaker since her last PT session. Pt's sister and [id number] also attended her session today, and report they are trying to get her in for an Ortho consult, and just left a message hoping to schedule an appointment earlier today. Prior Treatments and Tests Prior history of PT Knee x-ray: IMPRESSION: Moderate medial compartment degenerative knee joint osteoarthritis, no fracture found. If unusual symptoms persist followup by MR or delayed plain film imaging may be warranted. per Chauncey Dia M.D. on 12/01/2019 Ankle x-ray: IMPRESSION: No acute trauma found. Exostosis and chronic appearing accessory ossicle or old avulsion fragment as noted. per Chauncey Dia M.D. on Future Testing and Treatments Planned Possible MRI, Ortho consult Treatment Goals Patient/Caregiver Goals Pt wants to transfer more safely PT-OP-C Subjective Start: 01/02/20 17:36 Freq: Status: Active Protocol: Document 12/20/20 16:02 DCW (Rec: 12/20/20 16:39 DCW [id number]) OP-PT Subjective Patient Comments Patient Comments Pt notes she is okay today PT-OP-F Manual Assessment Start: 01/02/20 17:36 Freq: Status: Active Protocol: Document 12/20/20 16:02 DCW (Rec: 12/20/20 17:46 DCW [id number]) Manual Assessments Joint Mobility Assessment Joint Mobility Assessment Continued increased valgus laxity PT-OP-G Mobility & Gait Start: 01/02/20 17:36 Freq: Status: Active Protocol: Document 12/20/20 16:02 DCW (Rec: 12/20/20 17:46 DCW [id number]) OP Mobility Evaluation Transfers Sit to Stand Mod Ax1 in // bars, verbal cues for hand placement OP Gait Assessment Factors Limiting Gait Function Factors Limiting Gait Function Abnormal Tonal Influences, Decreased Activity Tolerance, Decreased Strength,Difficulty Following Directions, Incoordination,Limited Range of Motion,Pain,Poor Balance, Poor Safety Awareness Comments Gait Comments Unable to perform gait activities or pre-gait weight- shift in // bars PT-OP-L Special Tests Start: 01/02/20 17:36 Freq: Status: Active Protocol: Document 01/02/20 16:45 DCW (Rec: 01/02/20 18:00 DCW [id number]) Special Tests Knee Special Tests Kin Test Test Results Positive left Comments Performed in sitting Posterior Draw Test Results Negative Anterior Draw Test Results Negative Varus- 25 Degrees Test Results Negative Varus- 0 Degrees Test Results Negative Valgus- 25 Degrees Test Results Positive left Valgus- 0 Degrees Test Results Positive left PT-OP-M Strength Start: 01/02/20 17:36 Freq: Status: Active Protocol: Document 12/20/20 16:02 DCW (Rec: 12/20/20 17:46 DCW [id number]) Hip Strength Hip Manual Muscle Testing Right Flexion (L2) 4+ Good+ Abduction 4 Good Adduction 4 Good Left Flexion (L2) 4- Good- Abduction 3+ Fair+ Adduction 4- Good- Knee Strength Knee Manual Muscle Testing Right Flexion (S2) 4+ Good+ Extension (L3) 4+ Good+ Left Flexion (S2) 3+ Fair+ Extension (L3) 3+ Fair+ Ankle/Foot Strength Ankle and Foot Manual Muscle Testing Right Dorsiflexion (L4) 4- Good- Plantarflexion (S1) 3 Fair Inversion 4 Good Eversion (S1) 4 Good Left Dorsiflexion (L4) 4- Good- Plantarflexion (S1) 3 Fair Inversion 3- Fair- Eversion (S1) 3- Fair- PT-OP-Q Treatments Start: 01/02/20 17:36 Freq: Status: Active Protocol: Document 12/20/20 16:02 DCW (Rec: 12/20/20 16:39 DCW [id number]) Cardio Equipment Upper Body Ergometer (UBE) Duration (Minutes) 6 Seat Position in Wheelchair Height 2.5 Therapeutic Exercises Sitting Exercises 8 Sitting Exercise Name Balloon Volley Resistance 2# 7 Sitting Exercise Name Overhead Press Side bilateral Resistance 10# Equipment Used PVC 6 Sitting Exercise Name Biceps Curls Side bilateral Resistance 10# Equipment Used PVC 4 Sitting Exercise Name Ankle DF/PF/Inv/Ev Side bilateral Resistance Lv 3 Equipment Used T-band 3 Sitting Exercise Name HS Curls Side bilateral Resistance Lv 3 Equipment Used T-band 2 Sitting Exercise Name Marching Side bilateral Resistance 5# 1 Sitting Exercise Name LAQ Side bilateral Resistance 5# Standing Exercises 1 Standing Exercise Name Sit<->Stand Equipment Used // bars Reps/Minutes 3x5 Comments Min Ax1 PT-OP-T Assessment and Plan Start: 01/02/20 17:36 Freq: Status: Active Protocol: Document 12/20/20 16:02 DCW (Rec: 12/20/20 17:50 DCW [id number]) Physical Therapy Assessment Impairments Impairments Activity Tolerance,Balance, Functional Activities, Functional Mobility,Gait,Pain, Posture,ROM,Soft Tissue Mobility,Strength,Transfers Goals Four Impairment Multiple falls at care center Sample Builder Goal (LTG) Pt to report no falls over the course of two months LTG Duration Met Three Impairment Transfers Sample Builder Goal (LTG) Pt to perform stand-pivot transfer CGA with FWW LTG Duration 03/22/21 Two Impairment Pt unable to tolerate standing for more than 10 seconds Custodial Goal (LTG) Pt to stand using FWW /c Min Ax1 for 90 seconds LTG Duration 03/22/21 One Impairment LE weakness Sample Builder Goal (LTG) Ankle and knee MMT to to 3+/5 bilaterally Hip MMT to 4/5 bilaterally LTG Duration 03/22/21 Assessment Summary Assessment Pt largely unchanged since last reassessment, still struggling much more with sit< ->stand than she used to, and has not been able to return to any ambulation or even standing pre-gait activity. Difficult to determine if current level of function is just due to progression of her MS, a side-effect from being largely sedentary when not at PT due to being locked down at her [facility] over the past 1+ year due to covid, or secondary effects from her multiple bouts of UTIs, likely some combination of all three. Would like to continue to work with pt in an effort to make it easier for her to transfer into and out of her sister's van so they can travel more together, now that quarentine rules at her [facility] are less strict. Physical Therapy Plan Frequency and Duration Frequency of Treatment 1x/Week Duration of Treatment 12 weeks Plan of Care Start Date 12/20/20 Plan of Care End Date 03/22/21 Therapeutic Interventions Therapeutic Interventions Aquatic Therapy,Balance Training,Coordination Training ,Gait Training,Home Exercise Program,Joint Mobilizations, Manual Therapy,Neuromuscular Re-education,Patient/Caregiver Education,Self-Care/Home Management,Soft Tissue Mobilization,Therapeutic Activities,Therapeutic Exercises,Wheelchair Management Next Visit Focus/Plan Next Note Type Treatment Note Next Visit Plan standing with fWW, transfer training, increased activity tolerance
--- NOTE | 2020-12-20 17:51 | PT.OPPOC ---
Physical, Occupational & Speech Therapy At [facility] Current Diagnoses Multiple sclerosis (12/20/20) Pain in left knee (12/20/20) Pain in left ankle and joints of left foot (12/20/20) Weakness (12/20/20) Other fatigue (12/20/20) Visit Care Team Role Provider Type JJ Escudero Attending Provider Advanced Track Maintainer Primary Care Provider Referring Provider Specialty: Family Practice Address: [address] [place] [address], [id number] Email: [email or web address] Plan Of Care PT-OP-T Assessment and Plan Start: 01/02/20 17:36 Freq: Status: Active Protocol: Document 12/20/20 16:02 DCW (Rec: 12/20/20 17:50 DCW [id number]) Physical Therapy Assessment Impairments Impairments Activity Tolerance,Balance, Functional Activities, Functional Mobility,Gait,Pain, Posture,ROM,Soft Tissue Mobility,Strength,Transfers Goals Four Impairment Multiple falls at care center [facility]way Goal (LTG) Pt to report no falls over the course of two months LTG Duration Met Three Impairment Transfers Sawmilling Operator Goal (LTG) Pt to perform stand-pivot transfer CGA with FWW LTG Duration 03/22/21 Two Impairment Pt unable to tolerate standing for more than 10 seconds Halfway Goal (LTG) Pt to stand using FWW /c Min Ax1 for 90 seconds LTG Duration 03/22/21 One Impairment LE weakness Halfway Goal (LTG) Ankle and knee MMT to to 3+/5 bilaterally Hip MMT to 4/5 bilaterally LTG Duration 03/22/21 Assessment Summary Assessment Pt largely unchanged since last reassessment, still struggling much more with sit< ->stand than she used to, and has not been able to return to any ambulation or even standing pre-gait activity. Difficult to determine if current level of function is just due to progression of her MS, a side-effect from being largely sedentary when not at PT due to being locked down at her [facility] over the past 1+ year due to covid, or secondary effects from her multiple bouts of UTIs, likely some combination of all three. Would like to continue to work with pt in an effort to make it easier for her to transfer into and out of her sister's van so they can travel more together, now that quarentine rules at her [facility] are less strict. Physical Therapy Plan Frequency and Duration Frequency of Treatment 1x/Week Duration of Treatment 12 weeks Plan of Care Start Date 12/20/20 Plan of Care End Date 03/22/21 Therapeutic Interventions Therapeutic Interventions Aquatic Therapy,Balance Training,Coordination Training ,Gait Training,Home Exercise Program,Joint Mobilizations, Manual Therapy,Neuromuscular Re-education,Patient/Caregiver Education,Self-Care/Home Management,Soft Tissue Mobilization,Therapeutic Activities,Therapeutic Exercises,Wheelchair Management Next Visit Focus/Plan Next Note Type Treatment Note Next Visit Plan standing with fWW, transfer training, increased activity tolerance Plan of Care Dates Plan of Care Start Date 12/20/20 Plan of Care End Date 03/22/21 Electronically Signed by: Daryl Robertson PT 12/20/20 2755 Please Sign and Return: I have reviewed this Plan of Care and certify that the skilled therapy services above are required to meet the patient?s needs. Physician Signature Date Printed Name and Credentials Clinical Instructor Signature Printed Name and Credentials
--- NOTE | 2021-01-03 16:45 | PT.OTN ---
Current Diagnoses Multiple sclerosis (01/03/21) Pain in left knee (01/03/21) Pain in left ankle and joints of left foot (01/03/21) Weakness (01/03/21) Other fatigue (01/03/21) Physical Therapy Treatment Note PT-OP-A Visit Information Start: 01/02/20 17:36 Freq: Status: Active Protocol: Document 01/03/21 16:05 DCW (Rec: 01/03/21 16:44 DCW [id number]) Out-Patient Physical Therapy Visit Information Visit Information Visit Type Treatment Note Visit Start Time 16:05 Visit Stop Time 16:45 Total Visit Minutes 40 Visit Number 39 Number of MEDICAL TECHNOLOGIST CLINICAL Visits 0 Evaluation Information Evaluation Date 01/02/20 PT-OP-B Current Condition Start: 01/02/20 17:36 Freq: Status: Active Protocol: Document 01/02/20 16:45 DCW (Rec: 01/02/20 18:00 DCW [id number]) Current Condition History of Current Condition Onset Date Multi-year history Current Complaints MS, fatigue, weakness, L knee pain, L ankle pain History of Current Condition Pt is a 64 year old female with a long-standing history of Multiple Sclerosis. Pt currently mobilizes in her manual wheelchair, and lives at a local care center. Pt has a long-standing history of Physical Therapy off and on at this facility over the past six years, and was working with PT on ambulation, strengthening, and transfers prior to the Covid-19 shut- down, but pt was discharged after her care facility had a mandatory shut-down, and pt was unable to attend physical therapy for ~3 months. Over this time, pt unfortunately spent most of her time lying in bed, which got even worse after she suffered multiple falls when trying to transfer, resulting in a sore left knee and ankle, and an overall refusal to do anything out of bed. Pt reports extreme pain when doing anything in standing, and she feels she has gotten substantially weaker since her last PT session. Pt's sister and [id number] also attended her session today, and report they are trying to get her in for an Ortho consult, and just left a message hoping to schedule an appointment earlier today. Prior Treatments and Tests Prior history of PT Knee x-ray: IMPRESSION: Moderate medial compartment degenerative knee joint osteoarthritis, no fracture found. If unusual symptoms persist followup by MR or delayed plain film imaging may be warranted. per Chauncey Dia M.D. on 12/01/2019 Ankle x-ray: IMPRESSION: No acute trauma found. Exostosis and chronic appearing accessory ossicle or old avulsion fragment as noted. per Chauncey Dia M.D. on Future Testing and Treatments Planned Possible MRI, Ortho consult Treatment Goals Patient/Caregiver Goals Pt wants to transfer more safely PT-OP-C Subjective Start: 01/02/20 17:36 Freq: Status: Active Protocol: Document 01/03/21 16:05 DCW (Rec: 01/03/21 16:44 DCW [id number]) OP-PT Subjective Patient Comments Patient Comments Pt reports she wasn't feeling well last week, but is doing better today. PT-OP-F Manual Assessment Start: 01/02/20 17:36 Freq: Status: Active Protocol: Document 12/20/20 16:02 DCW (Rec: 12/20/20 17:46 DCW [id number]) Manual Assessments Joint Mobility Assessment Joint Mobility Assessment Continued increased valgus laxity PT-OP-G Mobility & Gait Start: 01/02/20 17:36 Freq: Status: Active Protocol: Document 12/20/20 16:02 DCW (Rec: 12/20/20 17:46 DCW [id number]) OP Mobility Evaluation Transfers Sit to Stand Mod Ax1 in // bars, verbal cues for hand placement OP Gait Assessment Factors Limiting Gait Function Factors Limiting Gait Function Abnormal Tonal Influences, Decreased Activity Tolerance, Decreased Strength,Difficulty Following Directions, Incoordination,Limited Range of Motion,Pain,Poor Balance, Poor Safety Awareness Comments Gait Comments Unable to perform gait activities or pre-gait weight- shift in // bars PT-OP-L Special Tests Start: 01/02/20 17:36 Freq: Status: Active Protocol: Document 01/02/20 16:45 DCW (Rec: 01/02/20 18:00 DCW [id number]) Special Tests Knee Special Tests Kin Test Test Results Positive left Comments Performed in sitting Posterior Draw Test Results Negative Anterior Draw Test Results Negative Varus- 25 Degrees Test Results Negative Varus- 0 Degrees Test Results Negative Valgus- 25 Degrees Test Results Positive left Valgus- 0 Degrees Test Results Positive left PT-OP-M Strength Start: 01/02/20 17:36 Freq: Status: Active Protocol: Document 12/20/20 16:02 DCW (Rec: 12/20/20 17:46 DCW [id number]) Hip Strength Hip Manual Muscle Testing Right Flexion (L2) 4+ Good+ Abduction 4 Good Adduction 4 Good Left Flexion (L2) 4- Good- Abduction 3+ Fair+ Adduction 4- Good- Knee Strength Knee Manual Muscle Testing Right Flexion (S2) 4+ Good+ Extension (L3) 4+ Good+ Left Flexion (S2) 3+ Fair+ Extension (L3) 3+ Fair+ Ankle/Foot Strength Ankle and Foot Manual Muscle Testing Right Dorsiflexion (L4) 4- Good- Plantarflexion (S1) 3 Fair Inversion 4 Good Eversion (S1) 4 Good Left Dorsiflexion (L4) 4- Good- Plantarflexion (S1) 3 Fair Inversion 3- Fair- Eversion (S1) 3- Fair- PT-OP-Q Treatments Start: 01/02/20 17:36 Freq: Status: Active Protocol: Document 01/03/21 16:05 DCW (Rec: 01/03/21 16:44 DCW [id number]) Cardio Equipment Upper Body Ergometer (UBE) Duration (Minutes) 6 Seat Position in Wheelchair Height 2.5 Therapeutic Exercises Sitting Exercises 9 Sitting Exercise Name Hip Adduction Ball Squeeze Side bilateral 8 Sitting Exercise Name Balloon Volley Resistance 2# 7 Sitting Exercise Name Overhead Press Side bilateral Resistance 10# Equipment Used PVC 6 Sitting Exercise Name Biceps Curls Side bilateral Resistance 10# Equipment Used PVC 5 Sitting Exercise Name Hip Abduction Side bilateral Resistance Lv 3 Equipment Used T-band 4 Sitting Exercise Name Ankle DF/PF/Inv/Ev Side bilateral Resistance Lv 3 Equipment Used T-band 3 Sitting Exercise Name HS Curls Side bilateral Resistance Lv 3 Equipment Used T-band 2 Sitting Exercise Name Marching Side bilateral Resistance 5# 1 Sitting Exercise Name LAQ Side bilateral Resistance 5# Standing Exercises 1 Standing Exercise Name Sit<->Stand Equipment Used // bars Reps/Minutes 3x5 Comments Min Ax1 PT-OP-T Assessment and Plan Start: 01/02/20 17:36 Freq: Status: Active Protocol: Document 01/03/21 16:05 DCW (Rec: 01/03/21 16:44 DCW [id number]) Physical Therapy Assessment Impairments Impairments Activity Tolerance,Balance, Functional Activities, Functional Mobility,Gait,Pain, Posture,ROM,Soft Tissue Mobility,Strength,Transfers Goals Four Impairment Multiple falls at care center Correction Goal (LTG) Pt to report no falls over the course of two months LTG Duration Met Three Impairment Transfers Machine Rough Rounder Goal (LTG) Pt to perform stand-pivot transfer CGA with FWW LTG Duration 03/22/21 Two Impairment Pt unable to tolerate standing for more than 10 seconds Correction Goal (LTG) Pt to stand using FWW /c Min Ax1 for 90 seconds LTG Duration 03/22/21 One Impairment LE weakness Correction Goal (LTG) Ankle and knee MMT to to 3+/5 bilaterally Hip MMT to 4/5 bilaterally LTG Duration 03/22/21 Assessment Summary Assessment Pt's sister notes her goal for pt is to improve sit<->stand so they are able to take her for rides in the car, however at pt's current level of function, they are unable to transfer her. Pt has not really been pushing herself much recently, and it is unclear if it is an issue with motivation or part of the disease process. Physical Therapy Plan Frequency and Duration Frequency of Treatment 1x/Week Duration of Treatment 12 weeks Plan of Care Start Date 12/20/20 Plan of Care End Date 03/22/21 Therapeutic Interventions Therapeutic Interventions Aquatic Therapy,Balance Training,Coordination Training ,Gait Training,Home Exercise Program,Joint Mobilizations, Manual Therapy,Neuromuscular Re-education,Patient/Caregiver Education,Self-Care/Home Management,Soft Tissue Mobilization,Therapeutic Activities,Therapeutic Exercises,Wheelchair Management Next Visit Focus/Plan Next Note Type Treatment Note Next Visit Plan standing with fWW, transfer training, increased activity tolerance
--- NOTE | 2021-01-10 16:45 | PT.OTN ---
Current Diagnoses Multiple sclerosis (01/10/21) Pain in left knee (01/10/21) Pain in left ankle and joints of left foot (01/10/21) Weakness (01/10/21) Other fatigue (01/10/21) Physical Therapy Treatment Note PT-OP-A Visit Information Start: 01/02/20 17:36 Freq: Status: Active Protocol: Document 01/10/21 16:00 DCW (Rec: 01/10/21 16:45 DCW [id number]) Out-Patient Physical Therapy Visit Information Visit Information Visit Type Treatment Note Visit Start Time 16:00 Visit Stop Time 16:45 Total Visit Minutes 45 Visit Number 40 Number of SQL REPORT DEVELOPER Visits 0 Evaluation Information Evaluation Date 01/02/20 PT-OP-B Current Condition Start: 01/02/20 17:36 Freq: Status: Active Protocol: Document 01/02/20 16:45 DCW (Rec: 01/02/20 18:00 DCW [id number]) Current Condition History of Current Condition Onset Date Multi-year history Current Complaints MS, fatigue, weakness, L knee pain, L ankle pain History of Current Condition Pt is a 64 year old female with a long-standing history of Multiple Sclerosis. Pt currently mobilizes in her manual wheelchair, and lives at a local care center. Pt has a long-standing history of Physical Therapy off and on at this facility over the past six years, and was working with PT on ambulation, strengthening, and transfers prior to the Covid-19 shut- down, but pt was discharged after her care facility had a mandatory shut-down, and pt was unable to attend physical therapy for ~3 months. Over this time, pt unfortunately spent most of her time lying in bed, which got even worse after she suffered multiple falls when trying to transfer, resulting in a sore left knee and ankle, and an overall refusal to do anything out of bed. Pt reports extreme pain when doing anything in standing, and she feels she has gotten substantially weaker since her last PT session. Pt's sister and [id number] also attended her session today, and report they are trying to get her in for an Ortho consult, and just left a message hoping to schedule an appointment earlier today. Prior Treatments and Tests Prior history of PT Knee x-ray: IMPRESSION: Moderate medial compartment degenerative knee joint osteoarthritis, no fracture found. If unusual symptoms persist followup by MR or delayed plain film imaging may be warranted. per Chauncey Dia M.D. on 12/01/2019 Ankle x-ray: IMPRESSION: No acute trauma found. Exostosis and chronic appearing accessory ossicle or old avulsion fragment as noted. per Chauncey Dia M.D. on Future Testing and Treatments Planned Possible MRI, Ortho consult Treatment Goals Patient/Caregiver Goals Pt wants to transfer more safely PT-OP-C Subjective Start: 01/02/20 17:36 Freq: Status: Active Protocol: Document 01/10/21 16:00 DCW (Rec: 01/10/21 16:45 DCW [id number]) OP-PT Subjective Patient Comments Patient Comments Pt feeling pretty good today. PT-OP-F Manual Assessment Start: 01/02/20 17:36 Freq: Status: Active Protocol: Document 12/20/20 16:02 DCW (Rec: 12/20/20 17:46 DCW [id number]) Manual Assessments Joint Mobility Assessment Joint Mobility Assessment Continued increased valgus laxity PT-OP-G Mobility & Gait Start: 01/02/20 17:36 Freq: Status: Active Protocol: Document 12/20/20 16:02 DCW (Rec: 12/20/20 17:46 DCW [id number]) OP Mobility Evaluation Transfers Sit to Stand Mod Ax1 in // bars, verbal cues for hand placement OP Gait Assessment Factors Limiting Gait Function Factors Limiting Gait Function Abnormal Tonal Influences, Decreased Activity Tolerance, Decreased Strength,Difficulty Following Directions, Incoordination,Limited Range of Motion,Pain,Poor Balance, Poor Safety Awareness Comments Gait Comments Unable to perform gait activities or pre-gait weight- shift in // bars PT-OP-L Special Tests Start: 01/02/20 17:36 Freq: Status: Active Protocol: Document 01/02/20 16:45 DCW (Rec: 01/02/20 18:00 DCW [id number]) Special Tests Knee Special Tests Kin Test Test Results Positive left Comments Performed in sitting Posterior Draw Test Results Negative Anterior Draw Test Results Negative Varus- 25 Degrees Test Results Negative Varus- 0 Degrees Test Results Negative Valgus- 25 Degrees Test Results Positive left Valgus- 0 Degrees Test Results Positive left PT-OP-M Strength Start: 01/02/20 17:36 Freq: Status: Active Protocol: Document 12/20/20 16:02 DCW (Rec: 12/20/20 17:46 DCW [id number]) Hip Strength Hip Manual Muscle Testing Right Flexion (L2) 4+ Good+ Abduction 4 Good Adduction 4 Good Left Flexion (L2) 4- Good- Abduction 3+ Fair+ Adduction 4- Good- Knee Strength Knee Manual Muscle Testing Right Flexion (S2) 4+ Good+ Extension (L3) 4+ Good+ Left Flexion (S2) 3+ Fair+ Extension (L3) 3+ Fair+ Ankle/Foot Strength Ankle and Foot Manual Muscle Testing Right Dorsiflexion (L4) 4- Good- Plantarflexion (S1) 3 Fair Inversion 4 Good Eversion (S1) 4 Good Left Dorsiflexion (L4) 4- Good- Plantarflexion (S1) 3 Fair Inversion 3- Fair- Eversion (S1) 3- Fair- PT-OP-Q Treatments Start: 01/02/20 17:36 Freq: Status: Active Protocol: Document 01/10/21 16:00 DCW (Rec: 01/10/21 16:45 DCW [id number]) Cardio Equipment Upper Body Ergometer (UBE) Duration (Minutes) 6 Seat Position in Wheelchair Height 2.5 Therapeutic Exercises Sitting Exercises 9 Sitting Exercise Name Hip Adduction Ball Squeeze Side bilateral 8 Sitting Exercise Name Balloon Volley Resistance 2# 7 Sitting Exercise Name Overhead Press Side bilateral Resistance 10# Equipment Used PVC 6 Sitting Exercise Name Biceps Curls Side bilateral Resistance 10# Equipment Used PVC 5 Sitting Exercise Name Hip Abduction Side bilateral Resistance Lv 3 Equipment Used T-band 4 Sitting Exercise Name Ankle DF/PF/Inv/Ev Side bilateral Resistance Lv 3 Equipment Used T-band 3 Sitting Exercise Name HS Curls Side bilateral Resistance Lv 3 Equipment Used T-band 2 Sitting Exercise Name Marching Side bilateral Resistance 5# 1 Sitting Exercise Name LAQ Side bilateral Resistance 5# Standing Exercises 1 Standing Exercise Name Sit<->Stand Equipment Used // bars Reps/Minutes 3x5 Comments Min Ax1 PT-OP-T Assessment and Plan Start: 01/02/20 17:36 Freq: Status: Active Protocol: Document 01/10/21 16:00 DCW (Rec: 01/10/21 16:45 DCW [id number]) Physical Therapy Assessment Impairments Impairments Activity Tolerance,Balance, Functional Activities, Functional Mobility,Gait,Pain, Posture,ROM,Soft Tissue Mobility,Strength,Transfers Goals Four Impairment Multiple falls at care center Mine Exploration Engineer Goal (LTG) Pt to report no falls over the course of two months LTG Duration Met Three Impairment Transfers Mine Exploration Engineer Goal (LTG) Pt to perform stand-pivot transfer CGA with FWW LTG Duration 03/22/21 Two Impairment Pt unable to tolerate standing for more than 10 seconds Custodial Goal (LTG) Pt to stand using FWW /c Min Ax1 for 90 seconds LTG Duration 03/22/21 One Impairment LE weakness Mine Exploration Engineer Goal (LTG) Ankle and knee MMT to to 3+/5 bilaterally Hip MMT to 4/5 bilaterally LTG Duration 03/22/21 Assessment Summary Assessment Pt still struggling more with her left side, increased weakness in both LE and UE, although pt will do better with exercise if she is reminded to do more with it. Physical Therapy Plan Frequency and Duration Frequency of Treatment 1x/Week Duration of Treatment 12 weeks Plan of Care Start Date 12/20/20 Plan of Care End Date 03/22/21 Therapeutic Interventions Therapeutic Interventions Aquatic Therapy,Balance Training,Coordination Training ,Gait Training,Home Exercise Program,Joint Mobilizations, Manual Therapy,Neuromuscular Re-education,Patient/Caregiver Education,Self-Care/Home Management,Soft Tissue Mobilization,Therapeutic Activities,Therapeutic Exercises,Wheelchair Management Next Visit Focus/Plan Next Note Type Treatment Note Next Visit Plan standing with fWW, transfer training, increased activity tolerance
--- NOTE | 2021-01-18 12:01 | PT.OTN ---
Current Diagnoses Multiple sclerosis (01/18/21) Pain in left knee (01/18/21) Pain in left ankle and joints of left foot (01/18/21) Weakness (01/18/21) Other fatigue (01/18/21) Physical Therapy Treatment Note PT-OP-A Visit Information Start: 01/02/20 17:36 Freq: Status: Active Protocol: Document 01/18/21 11:15 DCW (Rec: 01/18/21 12:01 DCW [id number]) Out-Patient Physical Therapy Visit Information Visit Information Visit Type Treatment Note Visit Start Time 11:15 Visit Stop Time 12:00 Total Visit Minutes 45 Visit Number 41 Number of ENTRANCE GUARD Visits 0 Evaluation Information Evaluation Date 01/02/20 PT-OP-B Current Condition Start: 01/02/20 17:36 Freq: Status: Active Protocol: Document 01/02/20 16:45 DCW (Rec: 01/02/20 18:00 DCW [id number]) Current Condition History of Current Condition Onset Date Multi-year history Current Complaints MS, fatigue, weakness, L knee pain, L ankle pain History of Current Condition Pt is a 64 year old female with a long-standing history of Multiple Sclerosis. Pt currently mobilizes in her manual wheelchair, and lives at a local care center. Pt has a long-standing history of Physical Therapy off and on at this facility over the past six years, and was working with PT on ambulation, strengthening, and transfers prior to the Covid-19 shut- down, but pt was discharged after her care facility had a mandatory shut-down, and pt was unable to attend physical therapy for ~3 months. Over this time, pt unfortunately spent most of her time lying in bed, which got even worse after she suffered multiple falls when trying to transfer, resulting in a sore left knee and ankle, and an overall refusal to do anything out of bed. Pt reports extreme pain when doing anything in standing, and she feels she has gotten substantially weaker since her last PT session. Pt's sister and [id number] also attended her session today, and report they are trying to get her in for an Ortho consult, and just left a message hoping to schedule an appointment earlier today. Prior Treatments and Tests Prior history of PT Knee x-ray: IMPRESSION: Moderate medial compartment degenerative knee joint osteoarthritis, no fracture found. If unusual symptoms persist followup by MR or delayed plain film imaging may be warranted. per Chauncey Dia M.D. on 12/01/2019 Ankle x-ray: IMPRESSION: No acute trauma found. Exostosis and chronic appearing accessory ossicle or old avulsion fragment as noted. per Chauncey Dia M.D. on Future Testing and Treatments Planned Possible MRI, Ortho consult Treatment Goals Patient/Caregiver Goals Pt wants to transfer more safely PT-OP-C Subjective Start: 01/02/20 17:36 Freq: Status: Active Protocol: Document 01/18/21 11:15 DCW (Rec: 01/18/21 12:01 DCW [id number]) OP-PT Subjective Patient Comments Patient Comments Pt feels a little off today, but still pretty good overall . PT-OP-F Manual Assessment Start: 01/02/20 17:36 Freq: Status: Active Protocol: Document 12/20/20 16:02 DCW (Rec: 12/20/20 17:46 DCW [id number]) Manual Assessments Joint Mobility Assessment Joint Mobility Assessment Continued increased valgus laxity PT-OP-G Mobility & Gait Start: 01/02/20 17:36 Freq: Status: Active Protocol: Document 12/20/20 16:02 DCW (Rec: 12/20/20 17:46 DCW [id number]) OP Mobility Evaluation Transfers Sit to Stand Mod Ax1 in // bars, verbal cues for hand placement OP Gait Assessment Factors Limiting Gait Function Factors Limiting Gait Function Abnormal Tonal Influences, Decreased Activity Tolerance, Decreased Strength,Difficulty Following Directions, Incoordination,Limited Range of Motion,Pain,Poor Balance, Poor Safety Awareness Comments Gait Comments Unable to perform gait activities or pre-gait weight- shift in // bars PT-OP-L Special Tests Start: 01/02/20 17:36 Freq: Status: Active Protocol: Document 01/02/20 16:45 DCW (Rec: 01/02/20 18:00 DCW [id number]) Special Tests Knee Special Tests Kin Test Test Results Positive left Comments Performed in sitting Posterior Draw Test Results Negative Anterior Draw Test Results Negative Varus- 25 Degrees Test Results Negative Varus- 0 Degrees Test Results Negative Valgus- 25 Degrees Test Results Positive left Valgus- 0 Degrees Test Results Positive left PT-OP-M Strength Start: 01/02/20 17:36 Freq: Status: Active Protocol: Document 12/20/20 16:02 DCW (Rec: 12/20/20 17:46 DCW [id number]) Hip Strength Hip Manual Muscle Testing Right Flexion (L2) 4+ Good+ Abduction 4 Good Adduction 4 Good Left Flexion (L2) 4- Good- Abduction 3+ Fair+ Adduction 4- Good- Knee Strength Knee Manual Muscle Testing Right Flexion (S2) 4+ Good+ Extension (L3) 4+ Good+ Left Flexion (S2) 3+ Fair+ Extension (L3) 3+ Fair+ Ankle/Foot Strength Ankle and Foot Manual Muscle Testing Right Dorsiflexion (L4) 4- Good- Plantarflexion (S1) 3 Fair Inversion 4 Good Eversion (S1) 4 Good Left Dorsiflexion (L4) 4- Good- Plantarflexion (S1) 3 Fair Inversion 3- Fair- Eversion (S1) 3- Fair- PT-OP-Q Treatments Start: 01/02/20 17:36 Freq: Status: Active Protocol: Document 01/18/21 11:15 DCW (Rec: 01/18/21 12:01 DCW [id number]) Cardio Equipment Upper Body Ergometer (UBE) Duration (Minutes) 6 Seat Position in Wheelchair Height 2.5 Therapeutic Exercises Sitting Exercises 9 Sitting Exercise Name Hip Adduction Ball Squeeze Side bilateral 8 Sitting Exercise Name Balloon Volley Resistance 2# 7 Sitting Exercise Name Overhead Press Side bilateral Resistance 10# Equipment Used PVC 6 Sitting Exercise Name Biceps Curls Side bilateral Resistance 10# Equipment Used PVC 5 Sitting Exercise Name Hip Abduction Side bilateral Resistance Lv 3 Equipment Used T-band 4 Sitting Exercise Name Ankle DF/PF/Inv/Ev Side bilateral Resistance Lv 3 Equipment Used T-band 3 Sitting Exercise Name HS Curls Side bilateral Resistance Lv 3 Equipment Used T-band 2 Sitting Exercise Name Marching Side bilateral Resistance 5# 1 Sitting Exercise Name LAQ Side bilateral Resistance 5# Neuro Re-Education Treatment Coordination Activities 1 Details Cone activities Equipment Cones Speed 5# ankle weight each ankle Comments Using feet to knock over cones for coordination training/ neuromuscular re-education PT-OP-T Assessment and Plan Start: 01/02/20 17:36 Freq: Status: Active Protocol: Document 01/18/21 11:15 DCW (Rec: 01/18/21 12:01 DCW [id number]) Physical Therapy Assessment Impairments Impairments Activity Tolerance,Balance, Functional Activities, Functional Mobility,Gait,Pain, Posture,ROM,Soft Tissue Mobility,Strength,Transfers Goals Four Impairment Multiple falls at care center Nursing Home Goal (LTG) Pt to report no falls over the course of two months LTG Duration Met Three Impairment Transfers Smooth Plater Goal (LTG) Pt to perform stand-pivot transfer CGA with FWW LTG Duration 03/22/21 Two Impairment Pt unable to tolerate standing for more than 10 seconds Nursing Home Goal (LTG) Pt to stand using FWW /c Min Ax1 for 90 seconds LTG Duration 03/22/21 One Impairment LE weakness Nursing Home Goal (LTG) Ankle and knee MMT to to 3+/5 bilaterally Hip MMT to 4/5 bilaterally LTG Duration 03/22/21 Assessment Summary Assessment Pt did fairly well today, fewer rest breaks and some improved mobility of left leg during activity. Physical Therapy Plan Frequency and Duration Frequency of Treatment 1x/Week Duration of Treatment 12 weeks Plan of Care Start Date 12/20/20 Plan of Care End Date 03/22/21 Therapeutic Interventions Therapeutic Interventions Aquatic Therapy,Balance Training,Coordination Training ,Gait Training,Home Exercise Program,Joint Mobilizations, Manual Therapy,Neuromuscular Re-education,Patient/Caregiver Education,Self-Care/Home Management,Soft Tissue Mobilization,Therapeutic Activities,Therapeutic Exercises,Wheelchair Management Next Visit Focus/Plan Next Note Type Treatment Note Next Visit Plan standing with fWW, transfer training, increased activity tolerance
--- NOTE | 2021-01-29 16:00 | PT.OTN ---
Current Diagnoses Multiple sclerosis (01/29/21) Pain in left knee (01/29/21) Pain in left ankle and joints of left foot (01/29/21) Weakness (01/29/21) Other fatigue (01/29/21) Physical Therapy Treatment Note PT-OP-A Visit Information Start: 01/02/20 17:36 Freq: Status: Active Protocol: Document 01/29/21 15:15 DCW (Rec: 01/29/21 16:00 DCW [id number]) Out-Patient Physical Therapy Visit Information Visit Information Visit Type Treatment Note Visit Start Time 15:15 Visit Stop Time 16:00 Total Visit Minutes 45 Visit Number 42 Number of INSPECTOR QUALITY ASSURANCE Visits 0 Evaluation Information Evaluation Date 01/02/20 PT-OP-B Current Condition Start: 01/02/20 17:36 Freq: Status: Active Protocol: Document 01/02/20 16:45 DCW (Rec: 01/02/20 18:00 DCW [id number]) Current Condition History of Current Condition Onset Date Multi-year history Current Complaints MS, fatigue, weakness, L knee pain, L ankle pain History of Current Condition Pt is a 64 year old female with a long-standing history of Multiple Sclerosis. Pt currently mobilizes in her manual wheelchair, and lives at a local care center. Pt has a long-standing history of Physical Therapy off and on at this facility over the past six years, and was working with PT on ambulation, strengthening, and transfers prior to the Covid-19 shut- down, but pt was discharged after her care facility had a mandatory shut-down, and pt was unable to attend physical therapy for ~3 months. Over this time, pt unfortunately spent most of her time lying in bed, which got even worse after she suffered multiple falls when trying to transfer, resulting in a sore left knee and ankle, and an overall refusal to do anything out of bed. Pt reports extreme pain when doing anything in standing, and she feels she has gotten substantially weaker since her last PT session. Pt's sister and [id number] also attended her session today, and report they are trying to get her in for an Ortho consult, and just left a message hoping to schedule an appointment earlier today. Prior Treatments and Tests Prior history of PT Knee x-ray: IMPRESSION: Moderate medial compartment degenerative knee joint osteoarthritis, no fracture found. If unusual symptoms persist followup by MR or delayed plain film imaging may be warranted. per Chauncey Dia M.D. on 12/01/2019 Ankle x-ray: IMPRESSION: No acute trauma found. Exostosis and chronic appearing accessory ossicle or old avulsion fragment as noted. per Chauncey Dia M.D. on Future Testing and Treatments Planned Possible MRI, Ortho consult Treatment Goals Patient/Caregiver Goals Pt wants to transfer more safely PT-OP-C Subjective Start: 01/02/20 17:36 Freq: Status: Active Protocol: Document 01/29/21 15:15 DCW (Rec: 01/29/21 16:00 DCW [id number]) OP-PT Subjective Patient Comments Patient Comments Pt feeling okay today. PT-OP-F Manual Assessment Start: 01/02/20 17:36 Freq: Status: Active Protocol: Document 12/20/20 16:02 DCW (Rec: 12/20/20 17:46 DCW [id number]) Manual Assessments Joint Mobility Assessment Joint Mobility Assessment Continued increased valgus laxity PT-OP-G Mobility & Gait Start: 01/02/20 17:36 Freq: Status: Active Protocol: Document 12/20/20 16:02 DCW (Rec: 12/20/20 17:46 DCW [id number]) OP Mobility Evaluation Transfers Sit to Stand Mod Ax1 in // bars, verbal cues for hand placement OP Gait Assessment Factors Limiting Gait Function Factors Limiting Gait Function Abnormal Tonal Influences, Decreased Activity Tolerance, Decreased Strength,Difficulty Following Directions, Incoordination,Limited Range of Motion,Pain,Poor Balance, Poor Safety Awareness Comments Gait Comments Unable to perform gait activities or pre-gait weight- shift in // bars PT-OP-L Special Tests Start: 01/02/20 17:36 Freq: Status: Active Protocol: Document 01/02/20 16:45 DCW (Rec: 01/02/20 18:00 DCW [id number]) Special Tests Knee Special Tests Kin Test Test Results Positive left Comments Performed in sitting Posterior Draw Test Results Negative Anterior Draw Test Results Negative Varus- 25 Degrees Test Results Negative Varus- 0 Degrees Test Results Negative Valgus- 25 Degrees Test Results Positive left Valgus- 0 Degrees Test Results Positive left PT-OP-M Strength Start: 01/02/20 17:36 Freq: Status: Active Protocol: Document 12/20/20 16:02 DCW (Rec: 12/20/20 17:46 DCW [id number]) Hip Strength Hip Manual Muscle Testing Right Flexion (L2) 4+ Good+ Abduction 4 Good Adduction 4 Good Left Flexion (L2) 4- Good- Abduction 3+ Fair+ Adduction 4- Good- Knee Strength Knee Manual Muscle Testing Right Flexion (S2) 4+ Good+ Extension (L3) 4+ Good+ Left Flexion (S2) 3+ Fair+ Extension (L3) 3+ Fair+ Ankle/Foot Strength Ankle and Foot Manual Muscle Testing Right Dorsiflexion (L4) 4- Good- Plantarflexion (S1) 3 Fair Inversion 4 Good Eversion (S1) 4 Good Left Dorsiflexion (L4) 4- Good- Plantarflexion (S1) 3 Fair Inversion 3- Fair- Eversion (S1) 3- Fair- PT-OP-Q Treatments Start: 01/02/20 17:36 Freq: Status: Active Protocol: Document 01/29/21 15:15 DCW (Rec: 01/29/21 16:00 DCW [id number]) Cardio Equipment Upper Body Ergometer (UBE) Duration (Minutes) 6 Seat Position in Wheelchair Height 2.5 Therapeutic Exercises Sitting Exercises 9 Sitting Exercise Name Hip Adduction Ball Squeeze Side bilateral 8 Sitting Exercise Name Balloon Volley Resistance 2# 7 Sitting Exercise Name Overhead Press Side bilateral Resistance 10# Equipment Used PVC 6 Sitting Exercise Name Biceps Curls Side bilateral Resistance 10# Equipment Used PVC 5 Sitting Exercise Name Hip Abduction Side bilateral Resistance Lv 3 Equipment Used T-band 4 Sitting Exercise Name Ankle DF/PF/Inv/Ev Side bilateral Resistance Lv 3 Equipment Used T-band 3 Sitting Exercise Name HS Curls Side bilateral Resistance Lv 3 Equipment Used T-band 2 Sitting Exercise Name Marching Side bilateral Resistance 5# 1 Sitting Exercise Name LAQ Side bilateral Resistance 5# Neuro Re-Education Treatment Coordination Activities 1 Details Cone activities Equipment Cones Speed 5# ankle weight each ankle Comments Using feet to knock over cones for coordination training/ neuromuscular re-education PT-OP-T Assessment and Plan Start: 01/02/20 17:36 Freq: Status: Active Protocol: Document 01/29/21 15:15 DCW (Rec: 01/29/21 16:00 DCW [id number]) Physical Therapy Assessment Assessment Summary Assessment Pt had slightly easier time today with L UE strengthening, especially overhead press. Physical Therapy Plan Frequency and Duration Frequency of Treatment 1x/Week Duration of Treatment 12 weeks Plan of Care Start Date 12/20/20 Plan of Care End Date 03/22/21 Therapeutic Interventions Therapeutic Interventions Aquatic Therapy,Balance Training,Coordination Training ,Gait Training,Home Exercise Program,Joint Mobilizations, Manual Therapy,Neuromuscular Re-education,Patient/Caregiver Education,Self-Care/Home Management,Soft Tissue Mobilization,Therapeutic Activities,Therapeutic Exercises,Wheelchair Management Next Visit Focus/Plan Next Note Type Treatment Note Next Visit Plan standing with fWW, transfer training, increased activity tolerance
--- NOTE | 2021-02-05 16:01 | PT.OTN ---
Current Diagnoses Multiple sclerosis (02/05/21) Pain in left knee (02/05/21) Pain in left ankle and joints of left foot (02/05/21) Weakness (02/05/21) Other fatigue (02/05/21) Physical Therapy Treatment Note PT-OP-A Visit Information Start: 01/02/20 17:36 Freq: Status: Active Protocol: Document 02/05/21 15:15 DCW (Rec: 02/05/21 16:01 DCW [id number]) Out-Patient Physical Therapy Visit Information Visit Information Visit Type Treatment Note Visit Start Time 15:15 Visit Stop Time 16:00 Total Visit Minutes 45 Visit Number 43 Number of INSURANCE SPECIAL AGENT Visits 0 Evaluation Information Evaluation Date 01/02/20 PT-OP-B Current Condition Start: 01/02/20 17:36 Freq: Status: Active Protocol: Document 01/02/20 16:45 DCW (Rec: 01/02/20 18:00 DCW [id number]) Current Condition History of Current Condition Onset Date Multi-year history Current Complaints MS, fatigue, weakness, L knee pain, L ankle pain History of Current Condition Pt is a 64 year old female with a long-standing history of Multiple Sclerosis. Pt currently mobilizes in her manual wheelchair, and lives at a local care center. Pt has a long-standing history of Physical Therapy off and on at this facility over the past six years, and was working with PT on ambulation, strengthening, and transfers prior to the Covid-19 shut- down, but pt was discharged after her care facility had a mandatory shut-down, and pt was unable to attend physical therapy for ~3 months. Over this time, pt unfortunately spent most of her time lying in bed, which got even worse after she suffered multiple falls when trying to transfer, resulting in a sore left knee and ankle, and an overall refusal to do anything out of bed. Pt reports extreme pain when doing anything in standing, and she feels she has gotten substantially weaker since her last PT session. Pt's sister and [id number] also attended her session today, and report they are trying to get her in for an Ortho consult, and just left a message hoping to schedule an appointment earlier today. Prior Treatments and Tests Prior history of PT Knee x-ray: IMPRESSION: Moderate medial compartment degenerative knee joint osteoarthritis, no fracture found. If unusual symptoms persist followup by MR or delayed plain film imaging may be warranted. per Chauncey Dia M.D. on 12/01/2019 Ankle x-ray: IMPRESSION: No acute trauma found. Exostosis and chronic appearing accessory ossicle or old avulsion fragment as noted. per Chauncey Dia M.D. on Future Testing and Treatments Planned Possible MRI, Ortho consult Treatment Goals Patient/Caregiver Goals Pt wants to transfer more safely PT-OP-C Subjective Start: 01/02/20 17:36 Freq: Status: Active Protocol: Document 02/05/21 15:15 DCW (Rec: 02/05/21 16:01 DCW [id number]) OP-PT Subjective Patient Comments Patient Comments Pt feeling good today, notes no pain in her left knee. PT-OP-F Manual Assessment Start: 01/02/20 17:36 Freq: Status: Active Protocol: Document 12/20/20 16:02 DCW (Rec: 12/20/20 17:46 DCW [id number]) Manual Assessments Joint Mobility Assessment Joint Mobility Assessment Continued increased valgus laxity PT-OP-G Mobility & Gait Start: 01/02/20 17:36 Freq: Status: Active Protocol: Document 12/20/20 16:02 DCW (Rec: 12/20/20 17:46 DCW [id number]) OP Mobility Evaluation Transfers Sit to Stand Mod Ax1 in // bars, verbal cues for hand placement OP Gait Assessment Factors Limiting Gait Function Factors Limiting Gait Function Abnormal Tonal Influences, Decreased Activity Tolerance, Decreased Strength,Difficulty Following Directions, Incoordination,Limited Range of Motion,Pain,Poor Balance, Poor Safety Awareness Comments Gait Comments Unable to perform gait activities or pre-gait weight- shift in // bars PT-OP-L Special Tests Start: 01/02/20 17:36 Freq: Status: Active Protocol: Document 01/02/20 16:45 DCW (Rec: 01/02/20 18:00 DCW [id number]) Special Tests Knee Special Tests Kin Test Test Results Positive left Comments Performed in sitting Posterior Draw Test Results Negative Anterior Draw Test Results Negative Varus- 25 Degrees Test Results Negative Varus- 0 Degrees Test Results Negative Valgus- 25 Degrees Test Results Positive left Valgus- 0 Degrees Test Results Positive left PT-OP-M Strength Start: 01/02/20 17:36 Freq: Status: Active Protocol: Document 12/20/20 16:02 DCW (Rec: 12/20/20 17:46 DCW [id number]) Hip Strength Hip Manual Muscle Testing Right Flexion (L2) 4+ Good+ Abduction 4 Good Adduction 4 Good Left Flexion (L2) 4- Good- Abduction 3+ Fair+ Adduction 4- Good- Knee Strength Knee Manual Muscle Testing Right Flexion (S2) 4+ Good+ Extension (L3) 4+ Good+ Left Flexion (S2) 3+ Fair+ Extension (L3) 3+ Fair+ Ankle/Foot Strength Ankle and Foot Manual Muscle Testing Right Dorsiflexion (L4) 4- Good- Plantarflexion (S1) 3 Fair Inversion 4 Good Eversion (S1) 4 Good Left Dorsiflexion (L4) 4- Good- Plantarflexion (S1) 3 Fair Inversion 3- Fair- Eversion (S1) 3- Fair- PT-OP-Q Treatments Start: 01/02/20 17:36 Freq: Status: Active Protocol: Document 02/05/21 15:15 DCW (Rec: 02/05/21 16:01 DCW [id number]) Cardio Equipment Upper Body Ergometer (UBE) Duration (Minutes) 6 Seat Position in Wheelchair Height 2.5 Therapeutic Exercises Sitting Exercises 9 Sitting Exercise Name Hip Adduction Ball Squeeze Side bilateral 8 Sitting Exercise Name Balloon Volley Resistance 2# 7 Sitting Exercise Name Overhead Press Side bilateral Resistance 10# Equipment Used PVC 6 Sitting Exercise Name Biceps Curls Side bilateral Resistance 10# Equipment Used PVC 5 Sitting Exercise Name Hip Abduction Side bilateral Resistance Lv 3 Equipment Used T-band 4 Sitting Exercise Name Ankle DF/PF/Inv/Ev Side bilateral Resistance Lv 3 Equipment Used T-band 3 Sitting Exercise Name HS Curls Side bilateral Resistance Lv 3 Equipment Used T-band 2 Sitting Exercise Name Marching Side bilateral Resistance 5# 1 Sitting Exercise Name LAQ Side bilateral Resistance 5# Neuro Re-Education Treatment Coordination Activities 1 Details Cone activities Equipment Cones Speed 5# ankle weight each ankle Comments Using feet to knock over cones for coordination training/ neuromuscular re-education PT-OP-T Assessment and Plan Start: 01/02/20 17:36 Freq: Status: Active Protocol: Document 02/05/21 15:15 DCW (Rec: 02/05/21 16:01 DCW [id number]) Physical Therapy Assessment Impairments Impairments Activity Tolerance,Balance, Functional Activities, Functional Mobility,Gait,Pain, Posture,ROM,Soft Tissue Mobility,Strength,Transfers Goals Four Impairment Multiple falls at care center Retirement Goal (LTG) Pt to report no falls over the course of two months LTG Duration Met Three Impairment Transfers Retirement Goal (LTG) Pt to perform stand-pivot transfer CGA with FWW LTG Duration 03/22/21 Two Impairment Pt unable to tolerate standing for more than 10 seconds Retirement Goal (LTG) Pt to stand using FWW /c Min Ax1 for 90 seconds LTG Duration 03/22/21 One Impairment LE weakness Retirement Goal (LTG) Ankle and knee MMT to to 3+/5 bilaterally Hip MMT to 4/5 bilaterally LTG Duration 03/22/21 Assessment Summary Assessment Pt doing well today, still not doing any sit->stand seconrady to recent therapist back injury, but should be able to return to that next week. Physical Therapy Plan Frequency and Duration Frequency of Treatment 1x/Week Duration of Treatment 12 weeks Plan of Care Start Date 12/20/20 Plan of Care End Date 03/22/21 Therapeutic Interventions Therapeutic Interventions Aquatic Therapy,Balance Training,Coordination Training ,Gait Training,Home Exercise Program,Joint Mobilizations, Manual Therapy,Neuromuscular Re-education,Patient/Caregiver Education,Self-Care/Home Management,Soft Tissue Mobilization,Therapeutic Activities,Therapeutic Exercises,Wheelchair Management Next Visit Focus/Plan Next Note Type Treatment Note Next Visit Plan standing with fWW, transfer training, increased activity tolerance
--- NOTE | 2021-02-12 16:01 | PT.OTN ---
Current Diagnoses Multiple sclerosis (02/12/21) Pain in left knee (02/12/21) Pain in left ankle and joints of left foot (02/12/21) Weakness (02/12/21) Other fatigue (02/12/21) Physical Therapy Treatment Note PT-OP-A Visit Information Start: 01/02/20 17:36 Freq: Status: Active Protocol: Document 02/12/21 15:15 DCW (Rec: 02/12/21 16:01 DCW [id number]) Out-Patient Physical Therapy Visit Information Visit Information Visit Type Treatment Note Visit Start Time 15:15 Visit Stop Time 16:00 Total Visit Minutes 45 Visit Number 44 Number of STUNNER Visits 0 Evaluation Information Evaluation Date 01/02/20 PT-OP-B Current Condition Start: 01/02/20 17:36 Freq: Status: Active Protocol: Document 01/02/20 16:45 DCW (Rec: 01/02/20 18:00 DCW [id number]) Current Condition History of Current Condition Onset Date Multi-year history Current Complaints MS, fatigue, weakness, L knee pain, L ankle pain History of Current Condition Pt is a 64 year old female with a long-standing history of Multiple Sclerosis. Pt currently mobilizes in her manual wheelchair, and lives at a local care center. Pt has a long-standing history of Physical Therapy off and on at this facility over the past six years, and was working with PT on ambulation, strengthening, and transfers prior to the Covid-19 shut- down, but pt was discharged after her care facility had a mandatory shut-down, and pt was unable to attend physical therapy for ~3 months. Over this time, pt unfortunately spent most of her time lying in bed, which got even worse after she suffered multiple falls when trying to transfer, resulting in a sore left knee and ankle, and an overall refusal to do anything out of bed. Pt reports extreme pain when doing anything in standing, and she feels she has gotten substantially weaker since her last PT session. Pt's sister and [id number] also attended her session today, and report they are trying to get her in for an Ortho consult, and just left a message hoping to schedule an appointment earlier today. Prior Treatments and Tests Prior history of PT Knee x-ray: IMPRESSION: Moderate medial compartment degenerative knee joint osteoarthritis, no fracture found. If unusual symptoms persist followup by MR or delayed plain film imaging may be warranted. per Chauncey Dia M.D. on 12/01/2019 Ankle x-ray: IMPRESSION: No acute trauma found. Exostosis and chronic appearing accessory ossicle or old avulsion fragment as noted. per Chauncey Dia M.D. on Future Testing and Treatments Planned Possible MRI, Ortho consult Treatment Goals Patient/Caregiver Goals Pt wants to transfer more safely PT-OP-C Subjective Start: 01/02/20 17:36 Freq: Status: Active Protocol: Document 02/12/21 15:15 DCW (Rec: 02/12/21 16:01 DCW [id number]) OP-PT Subjective Patient Comments Patient Comments Pt feels pretty good today, not having any issues. PT-OP-F Manual Assessment Start: 01/02/20 17:36 Freq: Status: Active Protocol: Document 12/20/20 16:02 DCW (Rec: 12/20/20 17:46 DCW [id number]) Manual Assessments Joint Mobility Assessment Joint Mobility Assessment Continued increased valgus laxity PT-OP-G Mobility & Gait Start: 01/02/20 17:36 Freq: Status: Active Protocol: Document 12/20/20 16:02 DCW (Rec: 12/20/20 17:46 DCW [id number]) OP Mobility Evaluation Transfers Sit to Stand Mod Ax1 in // bars, verbal cues for hand placement OP Gait Assessment Factors Limiting Gait Function Factors Limiting Gait Function Abnormal Tonal Influences, Decreased Activity Tolerance, Decreased Strength,Difficulty Following Directions, Incoordination,Limited Range of Motion,Pain,Poor Balance, Poor Safety Awareness Comments Gait Comments Unable to perform gait activities or pre-gait weight- shift in // bars PT-OP-L Special Tests Start: 01/02/20 17:36 Freq: Status: Active Protocol: Document 01/02/20 16:45 DCW (Rec: 01/02/20 18:00 DCW [id number]) Special Tests Knee Special Tests Kin Test Test Results Positive left Comments Performed in sitting Posterior Draw Test Results Negative Anterior Draw Test Results Negative Varus- 25 Degrees Test Results Negative Varus- 0 Degrees Test Results Negative Valgus- 25 Degrees Test Results Positive left Valgus- 0 Degrees Test Results Positive left PT-OP-M Strength Start: 01/02/20 17:36 Freq: Status: Active Protocol: Document 12/20/20 16:02 DCW (Rec: 12/20/20 17:46 DCW [id number]) Hip Strength Hip Manual Muscle Testing Right Flexion (L2) 4+ Good+ Abduction 4 Good Adduction 4 Good Left Flexion (L2) 4- Good- Abduction 3+ Fair+ Adduction 4- Good- Knee Strength Knee Manual Muscle Testing Right Flexion (S2) 4+ Good+ Extension (L3) 4+ Good+ Left Flexion (S2) 3+ Fair+ Extension (L3) 3+ Fair+ Ankle/Foot Strength Ankle and Foot Manual Muscle Testing Right Dorsiflexion (L4) 4- Good- Plantarflexion (S1) 3 Fair Inversion 4 Good Eversion (S1) 4 Good Left Dorsiflexion (L4) 4- Good- Plantarflexion (S1) 3 Fair Inversion 3- Fair- Eversion (S1) 3- Fair- PT-OP-Q Treatments Start: 01/02/20 17:36 Freq: Status: Active Protocol: Document 02/12/21 15:15 DCW (Rec: 02/12/21 16:01 DCW [id number]) Therapeutic Exercises Sitting Exercises 9 Sitting Exercise Name Hip Adduction Ball Squeeze Side bilateral 8 Sitting Exercise Name Balloon Volley Resistance 2# 7 Sitting Exercise Name Overhead Press Side bilateral Resistance 10# Equipment Used PVC 6 Sitting Exercise Name Biceps Curls Side bilateral Resistance 10# Equipment Used PVC 5 Sitting Exercise Name Hip Abduction Side bilateral Resistance Lv 3 Equipment Used T-band 4 Sitting Exercise Name Ankle DF/PF/Inv/Ev Side bilateral Resistance Lv 3 Equipment Used T-band 3 Sitting Exercise Name HS Curls Side bilateral Resistance Lv 3 Equipment Used T-band 2 Sitting Exercise Name Marching Side bilateral Resistance 5# 1 Sitting Exercise Name LAQ Side bilateral Resistance 5# Standing Exercises 1 Standing Exercise Name Sit<->Stand Equipment Used // bars Reps/Minutes 3x5 Comments Min Ax1 PT-OP-T Assessment and Plan Start: 01/02/20 17:36 Freq: Status: Active Protocol: Document 02/12/21 15:15 DCW (Rec: 02/12/21 16:01 DCW [id number]) Physical Therapy Assessment Impairments Impairments Activity Tolerance,Balance, Functional Activities, Functional Mobility,Gait,Pain, Posture,ROM,Soft Tissue Mobility,Strength,Transfers Goals Four Impairment Multiple falls at care center Latex Foam Worker Goal (LTG) Pt to report no falls over the course of two months LTG Duration Met Three Impairment Transfers Latex Foam Worker Goal (LTG) Pt to perform stand-pivot transfer CGA with FWW LTG Duration 03/22/21 Two Impairment Pt unable to tolerate standing for more than 10 seconds Latex Foam Worker Goal (LTG) Pt to stand using FWW /c Min Ax1 for 90 seconds LTG Duration 03/22/21 One Impairment LE weakness Latex Foam Worker Goal (LTG) Ankle and knee MMT to to 3+/5 bilaterally Hip MMT to 4/5 bilaterally LTG Duration 03/22/21 Assessment Summary Assessment Pt tolerated treatment well today, did very well with sit< ->stand after not performing them for 4 weeks. Physical Therapy Plan Frequency and Duration Frequency of Treatment 1x/Week Duration of Treatment 12 weeks Plan of Care Start Date 12/20/20 Plan of Care End Date 03/22/21 Therapeutic Interventions Therapeutic Interventions Aquatic Therapy,Balance Training,Coordination Training ,Gait Training,Home Exercise Program,Joint Mobilizations, Manual Therapy,Neuromuscular Re-education,Patient/Caregiver Education,Self-Care/Home Management,Soft Tissue Mobilization,Therapeutic Activities,Therapeutic Exercises,Wheelchair Management Next Visit Focus/Plan Next Note Type Treatment Note Next Visit Plan standing with fWW, transfer training, increased activity tolerance
--- NOTE | 2021-03-21 16:46 | PT.OTN ---
Current Diagnoses Multiple sclerosis (03/26/21) Pain in left knee (03/26/21) Pain in left ankle and joints of left foot (03/26/21) Weakness (03/26/21) Other fatigue (03/26/21) Physical Therapy Treatment Note PT-OP-A Visit Information Start: 01/02/20 17:36 Freq: Status: Active Protocol: Document 03/21/21 16:00 DCW (Rec: 03/21/21 16:46 DCW [id number]) Out-Patient Physical Therapy Visit Information Visit Information Visit Type Treatment Note Visit Start Time 16:00 Visit Stop Time 16:45 Total Visit Minutes 45 Visit Number 45 Number of CRTS Visits 0 Evaluation Information Evaluation Date 01/02/20 PT-OP-B Current Condition Start: 01/02/20 17:36 Freq: Status: Active Protocol: Document 01/02/20 16:45 DCW (Rec: 01/02/20 18:00 DCW [id number]) Current Condition History of Current Condition Onset Date Multi-year history Current Complaints MS, fatigue, weakness, L knee pain, L ankle pain History of Current Condition Pt is a 64 year old female with a long-standing history of Multiple Sclerosis. Pt currently mobilizes in her manual wheelchair, and lives at a local care center. Pt has a long-standing history of Physical Therapy off and on at this facility over the past six years, and was working with PT on ambulation, strengthening, and transfers prior to the Covid-19 shut- down, but pt was discharged after her care facility had a mandatory shut-down, and pt was unable to attend physical therapy for ~3 months. Over this time, pt unfortunately spent most of her time lying in bed, which got even worse after she suffered multiple falls when trying to transfer, resulting in a sore left knee and ankle, and an overall refusal to do anything out of bed. Pt reports extreme pain when doing anything in standing, and she feels she has gotten substantially weaker since her last PT session. Pt's sister and [id number] also attended her session today, and report they are trying to get her in for an Ortho consult, and just left a message hoping to schedule an appointment earlier today. Prior Treatments and Tests Prior history of PT Knee x-ray: IMPRESSION: Moderate medial compartment degenerative knee joint osteoarthritis, no fracture found. If unusual symptoms persist followup by MR or delayed plain film imaging may be warranted. per Chauncey Dia M.D. on 12/01/2019 Ankle x-ray: IMPRESSION: No acute trauma found. Exostosis and chronic appearing accessory ossicle or old avulsion fragment as noted. per Chauncey Dia M.D. on Future Testing and Treatments Planned Possible MRI, Ortho consult Treatment Goals Patient/Caregiver Goals Pt wants to transfer more safely PT-OP-C Subjective Start: 01/02/20 17:36 Freq: Status: Active Protocol: Document 03/21/21 16:00 DCW (Rec: 03/21/21 16:46 DCW [id number]) OP-PT Subjective Patient Comments Patient Comments Pt admits her left knee has been feeling pretty good, because I haven't been doing much. PT-OP-F Manual Assessment Start: 01/02/20 17:36 Freq: Status: Active Protocol: Document 03/21/21 16:00 DCW (Rec: 03/21/21 16:07 DCW [id number]) Manual Assessments Joint Mobility Assessment Joint Mobility Assessment Continued increased L valgus laxity PT-OP-G Mobility & Gait Start: 01/02/20 17:36 Freq: Status: Active Protocol: Document 03/21/21 16:00 DCW (Rec: 03/21/21 16:07 DCW [id number]) OP Mobility Evaluation Transfers Sit to Stand Mod Ax1 in // bars, verbal cues for hand placement OP Gait Assessment Factors Limiting Gait Function Factors Limiting Gait Function Abnormal Tonal Influences, Decreased Activity Tolerance, Decreased Strength,Difficulty Following Directions, Incoordination,Limited Range of Motion,Pain,Poor Balance, Poor Safety Awareness Comments Gait Comments Unable to perform gait activities or pre-gait weight- shift in // bars PT-OP-L Special Tests Start: 01/02/20 17:36 Freq: Status: Active Protocol: Document 01/02/20 16:45 DCW (Rec: 01/02/20 18:00 DCW [id number]) Special Tests Knee Special Tests Kin Test Test Results Positive left Comments Performed in sitting Posterior Draw Test Results Negative Anterior Draw Test Results Negative Varus- 25 Degrees Test Results Negative Varus- 0 Degrees Test Results Negative Valgus- 25 Degrees Test Results Positive left Valgus- 0 Degrees Test Results Positive left PT-OP-M Strength Start: 01/02/20 17:36 Freq: Status: Active Protocol: Document 03/21/21 16:00 DCW (Rec: 03/21/21 16:07 DCW [id number]) Hip Strength Hip Manual Muscle Testing Right Flexion (L2) 4+ Good+ Abduction 4 Good Adduction 4 Good Left Flexion (L2) 4- Good- Abduction 3+ Fair+ Adduction 4- Good- Knee Strength Knee Manual Muscle Testing Right Flexion (S2) 4+ Good+ Extension (L3) 4+ Good+ Left Flexion (S2) 3+ Fair+ Extension (L3) 3+ Fair+ Ankle/Foot Strength Ankle and Foot Manual Muscle Testing Right Dorsiflexion (L4) 4- Good- Plantarflexion (S1) 3 Fair Inversion 4 Good Eversion (S1) 4 Good Left Dorsiflexion (L4) 4- Good- Plantarflexion (S1) 3 Fair Inversion 3- Fair- Eversion (S1) 3- Fair- PT-OP-Q Treatments Start: 01/02/20 17:36 Freq: Status: Active Protocol: Document 03/21/21 16:00 DCW (Rec: 03/21/21 16:46 DCW [id number]) Cardio Equipment Upper Body Ergometer (UBE) Duration (Minutes) 6 Seat Position in Wheelchair Height 2.5 Therapeutic Exercises Sitting Exercises 9 Sitting Exercise Name Hip Adduction Ball Squeeze Side bilateral 8 Sitting Exercise Name Balloon Volley Resistance 2# 7 Sitting Exercise Name Overhead Press Side bilateral Resistance 10# Equipment Used PVC 6 Sitting Exercise Name Biceps Curls Side bilateral Resistance 10# Equipment Used PVC 5 Sitting Exercise Name Hip Abduction Side bilateral Resistance Lv 3 Equipment Used T-band 4 Sitting Exercise Name Ankle DF/PF/Inv/Ev Side bilateral Resistance Lv 3 Equipment Used T-band 3 Sitting Exercise Name HS Curls Side bilateral Resistance Lv 3 Equipment Used T-band 2 Sitting Exercise Name Marching Side bilateral Resistance 5# 1 Sitting Exercise Name LAQ Side bilateral Resistance 5# Standing Exercises 1 Standing Exercise Name Sit<->Stand Equipment Used // bars Reps/Minutes 3x5 Comments Min Ax1 PT-OP-T Assessment and Plan Start: 01/02/20 17:36 Freq: Status: Active Protocol: Document 03/21/21 16:00 DCW (Rec: 03/21/21 16:46 DCW [id number]) Physical Therapy Assessment Impairments Impairments Activity Tolerance,Balance, Functional Activities, Functional Mobility,Gait,Pain, Posture,ROM,Soft Tissue Mobility,Strength,Transfers Goals Four Impairment Multiple falls at care center Phlebotomist Lab Assistant Goal (LTG) Pt to report no falls over the course of two months LTG Duration Met Three Impairment Transfers Fpc Goal (LTG) Pt to perform stand-pivot transfer CGA with FWW LTG Duration 03/22/21 Two Impairment Pt unable to tolerate standing for more than 10 seconds Fpc Goal (LTG) Pt to stand using FWW /c Min Ax1 for 90 seconds LTG Duration 03/22/21 One Impairment LE weakness Phlebotomist Lab Assistant Goal (LTG) Ankle and knee MMT to to 3+/5 bilaterally Hip MMT to 4/5 bilaterally LTG Duration 03/22/21 Assessment Summary Assessment Pt largely unchanged since her last reassessment, still unable to perform sit<->stand and stand-pivot transfers well enough for her sister to take her anywhere in their vehicle . Pt has not been seen over the last month due to scheduling difficulties and low motivation. Physical Therapy Plan Frequency and Duration Frequency of Treatment 1x/Week Duration of Treatment 12 weeks Plan of Care Start Date 03/21/21 Plan of Care End Date 06/14/21 Therapeutic Interventions Therapeutic Interventions Aquatic Therapy,Balance Training,Coordination Training ,Gait Training,Home Exercise Program,Joint Mobilizations, Manual Therapy,Neuromuscular Re-education,Patient/Caregiver Education,Self-Care/Home Management,Soft Tissue Mobilization,Therapeutic Activities,Therapeutic Exercises,Wheelchair Management Next Visit Focus/Plan Next Note Type Treatment Note Next Visit Plan standing with fWW, transfer training, increased activity tolerance
--- NOTE | 2021-03-21 16:46 | PT.OPPOC ---
Physical, Occupational & Speech Therapy At [facility] Current Diagnoses Multiple sclerosis (03/26/21) Pain in left knee (03/26/21) Pain in left ankle and joints of left foot (03/26/21) Weakness (03/26/21) Other fatigue (03/26/21) Visit Care Team Role Provider Type JJ Escudero Attending Provider Advanced Emergency Department Clinician Primary Care Provider Referring Provider Specialty: Family Practice Address: [address] [place] [address], [id number] Email: [email or web address] Plan Of Care PT-OP-T Assessment and Plan Start: 01/02/20 17:36 Freq: Status: Active Protocol: Document 03/21/21 16:00 DCW (Rec: 03/21/21 16:46 DCW [id number]) Physical Therapy Assessment Impairments Impairments Activity Tolerance,Balance, Functional Activities, Functional Mobility,Gait,Pain, Posture,ROM,Soft Tissue Mobility,Strength,Transfers Goals Four Impairment Multiple falls at care center Shelter Goal (LTG) Pt to report no falls over the course of two months LTG Duration Met Three Impairment Transfers Shelter Goal (LTG) Pt to perform stand-pivot transfer CGA with FWW LTG Duration 03/22/21 Two Impairment Pt unable to tolerate standing for more than 10 seconds Shelter Goal (LTG) Pt to stand using FWW /c Min Ax1 for 90 seconds LTG Duration 03/22/21 One Impairment LE weakness Shelter Goal (LTG) Ankle and knee MMT to to 3+/5 bilaterally Hip MMT to 4/5 bilaterally LTG Duration 03/22/21 Assessment Summary Assessment Pt largely unchanged since her last reassessment, still unable to perform sit<->stand and stand-pivot transfers well enough for her sister to take her anywhere in their vehicle . Pt has not been seen over the last month due to scheduling difficulties and low motivation. Physical Therapy Plan Frequency and Duration Frequency of Treatment 1x/Week Duration of Treatment 12 weeks Plan of Care Start Date 03/21/21 Plan of Care End Date 06/14/21 Therapeutic Interventions Therapeutic Interventions Aquatic Therapy,Balance Training,Coordination Training ,Gait Training,Home Exercise Program,Joint Mobilizations, Manual Therapy,Neuromuscular Re-education,Patient/Caregiver Education,Self-Care/Home Management,Soft Tissue Mobilization,Therapeutic Activities,Therapeutic Exercises,Wheelchair Management Next Visit Focus/Plan Next Note Type Treatment Note Next Visit Plan standing with fWW, transfer training, increased activity tolerance Plan of Care Dates Plan of Care Start Date 03/21/21 Plan of Care End Date 06/14/21 Electronically Signed by: Daryl Robertson, PT 03/26/21 1072 Please Sign and Return: I have reviewed this Plan of Care and certify that the skilled therapy services above are required to meet the patient?s needs. Physician Signature Date Printed Name and Credentials Clinical Instructor Signature Printed Name and Credentials
--- NOTE | 2021-03-21 16:46 | PT.OTN ---
Current Diagnoses Multiple sclerosis (03/21/21) Pain in left knee (03/21/21) Pain in left ankle and joints of left foot (03/21/21) Weakness (03/21/21) Other fatigue (03/21/21) Physical Therapy Treatment Note PT-OP-A Visit Information Start: 01/02/20 17:36 Freq: Status: Active Protocol: Document 03/21/21 16:00 DCW (Rec: 03/21/21 16:46 DCW [id number]) Out-Patient Physical Therapy Visit Information Visit Information Visit Type Treatment Note Visit Start Time 16:00 Visit Stop Time 16:45 Total Visit Minutes 45 Visit Number 45 Number of DENTAL EQUIPMENT INSTALLER AND SERVICER Visits 0 Evaluation Information Evaluation Date 01/02/20 PT-OP-B Current Condition Start: 01/02/20 17:36 Freq: Status: Active Protocol: Document 01/02/20 16:45 DCW (Rec: 01/02/20 18:00 DCW [id number]) Current Condition History of Current Condition Onset Date Multi-year history Current Complaints MS, fatigue, weakness, L knee pain, L ankle pain History of Current Condition Pt is a 64 year old female with a long-standing history of Multiple Sclerosis. Pt currently mobilizes in her manual wheelchair, and lives at a local care center. Pt has a long-standing history of Physical Therapy off and on at this facility over the past six years, and was working with PT on ambulation, strengthening, and transfers prior to the Covid-19 shut- down, but pt was discharged after her care facility had a mandatory shut-down, and pt was unable to attend physical therapy for ~3 months. Over this time, pt unfortunately spent most of her time lying in bed, which got even worse after she suffered multiple falls when trying to transfer, resulting in a sore left knee and ankle, and an overall refusal to do anything out of bed. Pt reports extreme pain when doing anything in standing, and she feels she has gotten substantially weaker since her last PT session. Pt's sister and [id number] also attended her session today, and report they are trying to get her in for an Ortho consult, and just left a message hoping to schedule an appointment earlier today. Prior Treatments and Tests Prior history of PT Knee x-ray: IMPRESSION: Moderate medial compartment degenerative knee joint osteoarthritis, no fracture found. If unusual symptoms persist followup by MR or delayed plain film imaging may be warranted. per Chauncey Dia M.D. on 12/01/2019 Ankle x-ray: IMPRESSION: No acute trauma found. Exostosis and chronic appearing accessory ossicle or old avulsion fragment as noted. per Chauncey Dia M.D. on Future Testing and Treatments Planned Possible MRI, Ortho consult Treatment Goals Patient/Caregiver Goals Pt wants to transfer more safely PT-OP-C Subjective Start: 01/02/20 17:36 Freq: Status: Active Protocol: Document 03/21/21 16:00 DCW (Rec: 03/21/21 16:46 DCW [id number]) OP-PT Subjective Patient Comments Patient Comments Pt admits her left knee has been feeling pretty good, because I haven't been doing much. PT-OP-F Manual Assessment Start: 01/02/20 17:36 Freq: Status: Active Protocol: Document 03/21/21 16:00 DCW (Rec: 03/21/21 16:07 DCW [id number]) Manual Assessments Joint Mobility Assessment Joint Mobility Assessment Continued increased L valgus laxity PT-OP-G Mobility & Gait Start: 01/02/20 17:36 Freq: Status: Active Protocol: Document 03/21/21 16:00 DCW (Rec: 03/21/21 16:07 DCW [id number]) OP Mobility Evaluation Transfers Sit to Stand Mod Ax1 in // bars, verbal cues for hand placement OP Gait Assessment Factors Limiting Gait Function Factors Limiting Gait Function Abnormal Tonal Influences, Decreased Activity Tolerance, Decreased Strength,Difficulty Following Directions, Incoordination,Limited Range of Motion,Pain,Poor Balance, Poor Safety Awareness Comments Gait Comments Unable to perform gait activities or pre-gait weight- shift in // bars PT-OP-L Special Tests Start: 01/02/20 17:36 Freq: Status: Active Protocol: Document 01/02/20 16:45 DCW (Rec: 01/02/20 18:00 DCW [id number]) Special Tests Knee Special Tests Kin Test Test Results Positive left Comments Performed in sitting Posterior Draw Test Results Negative Anterior Draw Test Results Negative Varus- 25 Degrees Test Results Negative Varus- 0 Degrees Test Results Negative Valgus- 25 Degrees Test Results Positive left Valgus- 0 Degrees Test Results Positive left PT-OP-M Strength Start: 01/02/20 17:36 Freq: Status: Active Protocol: Document 03/21/21 16:00 DCW (Rec: 03/21/21 16:07 DCW [id number]) Hip Strength Hip Manual Muscle Testing Right Flexion (L2) 4+ Good+ Abduction 4 Good Adduction 4 Good Left Flexion (L2) 4- Good- Abduction 3+ Fair+ Adduction 4- Good- Knee Strength Knee Manual Muscle Testing Right Flexion (S2) 4+ Good+ Extension (L3) 4+ Good+ Left Flexion (S2) 3+ Fair+ Extension (L3) 3+ Fair+ Ankle/Foot Strength Ankle and Foot Manual Muscle Testing Right Dorsiflexion (L4) 4- Good- Plantarflexion (S1) 3 Fair Inversion 4 Good Eversion (S1) 4 Good Left Dorsiflexion (L4) 4- Good- Plantarflexion (S1) 3 Fair Inversion 3- Fair- Eversion (S1) 3- Fair- PT-OP-Q Treatments Start: 01/02/20 17:36 Freq: Status: Active Protocol: Document 03/21/21 16:00 DCW (Rec: 03/21/21 16:46 DCW [id number]) Cardio Equipment Upper Body Ergometer (UBE) Duration (Minutes) 6 Seat Position in Wheelchair Height 2.5 Therapeutic Exercises Sitting Exercises 9 Sitting Exercise Name Hip Adduction Ball Squeeze Side bilateral 8 Sitting Exercise Name Balloon Volley Resistance 2# 7 Sitting Exercise Name Overhead Press Side bilateral Resistance 10# Equipment Used PVC 6 Sitting Exercise Name Biceps Curls Side bilateral Resistance 10# Equipment Used PVC 5 Sitting Exercise Name Hip Abduction Side bilateral Resistance Lv 3 Equipment Used T-band 4 Sitting Exercise Name Ankle DF/PF/Inv/Ev Side bilateral Resistance Lv 3 Equipment Used T-band 3 Sitting Exercise Name HS Curls Side bilateral Resistance Lv 3 Equipment Used T-band 2 Sitting Exercise Name Marching Side bilateral Resistance 5# 1 Sitting Exercise Name LAQ Side bilateral Resistance 5# Standing Exercises 1 Standing Exercise Name Sit<->Stand Equipment Used // bars Reps/Minutes 3x5 Comments Min Ax1 PT-OP-T Assessment and Plan Start: 01/02/20 17:36 Freq: Status: Active Protocol: Document 03/21/21 16:00 DCW (Rec: 03/21/21 16:46 DCW [id number]) Physical Therapy Assessment Impairments Impairments Activity Tolerance,Balance, Functional Activities, Functional Mobility,Gait,Pain, Posture,ROM,Soft Tissue Mobility,Strength,Transfers Goals Four Impairment Multiple falls at care center Tag Marker Goal (LTG) Pt to report no falls over the course of two months LTG Duration Met Three Impairment Transfers Senior Living Goal (LTG) Pt to perform stand-pivot transfer CGA with FWW LTG Duration 03/22/21 Two Impairment Pt unable to tolerate standing for more than 10 seconds Senior Living Goal (LTG) Pt to stand using FWW /c Min Ax1 for 90 seconds LTG Duration 03/22/21 One Impairment LE weakness Tag Marker Goal (LTG) Ankle and knee MMT to to 3+/5 bilaterally Hip MMT to 4/5 bilaterally LTG Duration 03/22/21 Assessment Summary Assessment Pt largely unchanged since her last reassessment, still unable to perform sit<->stand and stand-pivot transfers well enough for her sister to take her anywhere in their vehicle . Pt has not been seen over the last month due to scheduling difficulties and low motivation. Physical Therapy Plan Frequency and Duration Frequency of Treatment 1x/Week Duration of Treatment 12 weeks Plan of Care Start Date 12/20/20 Plan of Care End Date 03/22/21 Therapeutic Interventions Therapeutic Interventions Aquatic Therapy,Balance Training,Coordination Training ,Gait Training,Home Exercise Program,Joint Mobilizations, Manual Therapy,Neuromuscular Re-education,Patient/Caregiver Education,Self-Care/Home Management,Soft Tissue Mobilization,Therapeutic Activities,Therapeutic Exercises,Wheelchair Management Next Visit Focus/Plan Next Note Type Treatment Note Next Visit Plan standing with fWW, transfer training, increased activity tolerance
--- NOTE | 2021-03-26 16:47 | PT.OTN ---
Current Diagnoses Multiple sclerosis (03/26/21) Pain in left knee (03/26/21) Pain in left ankle and joints of left foot (03/26/21) Weakness (03/26/21) Other fatigue (03/26/21) Physical Therapy Treatment Note PT-OP-A Visit Information Start: 01/02/20 17:36 Freq: Status: Active Protocol: Document 03/26/21 16:00 DCW (Rec: 03/26/21 16:47 DCW [id number]) Out-Patient Physical Therapy Visit Information Visit Information Visit Type Treatment Note Visit Start Time 16:00 Visit Stop Time 16:45 Total Visit Minutes 45 Visit Number 46 Number of A OPERATOR Visits 0 Evaluation Information Evaluation Date 01/02/20 PT-OP-B Current Condition Start: 01/02/20 17:36 Freq: Status: Active Protocol: Document 01/02/20 16:45 DCW (Rec: 01/02/20 18:00 DCW [id number]) Current Condition History of Current Condition Onset Date Multi-year history Current Complaints MS, fatigue, weakness, L knee pain, L ankle pain History of Current Condition Pt is a 64 year old female with a long-standing history of Multiple Sclerosis. Pt currently mobilizes in her manual wheelchair, and lives at a local care center. Pt has a long-standing history of Physical Therapy off and on at this facility over the past six years, and was working with PT on ambulation, strengthening, and transfers prior to the Covid-19 shut- down, but pt was discharged after her care facility had a mandatory shut-down, and pt was unable to attend physical therapy for ~3 months. Over this time, pt unfortunately spent most of her time lying in bed, which got even worse after she suffered multiple falls when trying to transfer, resulting in a sore left knee and ankle, and an overall refusal to do anything out of bed. Pt reports extreme pain when doing anything in standing, and she feels she has gotten substantially weaker since her last PT session. Pt's sister and [id number] also attended her session today, and report they are trying to get her in for an Ortho consult, and just left a message hoping to schedule an appointment earlier today. Prior Treatments and Tests Prior history of PT Knee x-ray: IMPRESSION: Moderate medial compartment degenerative knee joint osteoarthritis, no fracture found. If unusual symptoms persist followup by MR or delayed plain film imaging may be warranted. per Chauncey Dia M.D. on 12/01/2019 Ankle x-ray: IMPRESSION: No acute trauma found. Exostosis and chronic appearing accessory ossicle or old avulsion fragment as noted. per Chauncey Dia M.D. on Future Testing and Treatments Planned Possible MRI, Ortho consult Treatment Goals Patient/Caregiver Goals Pt wants to transfer more safely PT-OP-C Subjective Start: 01/02/20 17:36 Freq: Status: Active Protocol: Document 03/26/21 16:00 DCW (Rec: 03/26/21 16:47 DCW [id number]) OP-PT Subjective Patient Comments Patient Comments Pt reports she is doing okay today. PT-OP-F Manual Assessment Start: 01/02/20 17:36 Freq: Status: Active Protocol: Document 03/21/21 16:00 DCW (Rec: 03/21/21 16:07 DCW [id number]) Manual Assessments Joint Mobility Assessment Joint Mobility Assessment Continued increased L valgus laxity PT-OP-G Mobility & Gait Start: 01/02/20 17:36 Freq: Status: Active Protocol: Document 03/21/21 16:00 DCW (Rec: 03/21/21 16:07 DCW [id number]) OP Mobility Evaluation Transfers Sit to Stand Mod Ax1 in // bars, verbal cues for hand placement OP Gait Assessment Factors Limiting Gait Function Factors Limiting Gait Function Abnormal Tonal Influences, Decreased Activity Tolerance, Decreased Strength,Difficulty Following Directions, Incoordination,Limited Range of Motion,Pain,Poor Balance, Poor Safety Awareness Comments Gait Comments Unable to perform gait activities or pre-gait weight- shift in // bars PT-OP-L Special Tests Start: 01/02/20 17:36 Freq: Status: Active Protocol: Document 01/02/20 16:45 DCW (Rec: 01/02/20 18:00 DCW [id number]) Special Tests Knee Special Tests Kin Test Test Results Positive left Comments Performed in sitting Posterior Draw Test Results Negative Anterior Draw Test Results Negative Varus- 25 Degrees Test Results Negative Varus- 0 Degrees Test Results Negative Valgus- 25 Degrees Test Results Positive left Valgus- 0 Degrees Test Results Positive left PT-OP-M Strength Start: 01/02/20 17:36 Freq: Status: Active Protocol: Document 03/21/21 16:00 DCW (Rec: 03/21/21 16:07 DCW [id number]) Hip Strength Hip Manual Muscle Testing Right Flexion (L2) 4+ Good+ Abduction 4 Good Adduction 4 Good Left Flexion (L2) 4- Good- Abduction 3+ Fair+ Adduction 4- Good- Knee Strength Knee Manual Muscle Testing Right Flexion (S2) 4+ Good+ Extension (L3) 4+ Good+ Left Flexion (S2) 3+ Fair+ Extension (L3) 3+ Fair+ Ankle/Foot Strength Ankle and Foot Manual Muscle Testing Right Dorsiflexion (L4) 4- Good- Plantarflexion (S1) 3 Fair Inversion 4 Good Eversion (S1) 4 Good Left Dorsiflexion (L4) 4- Good- Plantarflexion (S1) 3 Fair Inversion 3- Fair- Eversion (S1) 3- Fair- PT-OP-Q Treatments Start: 01/02/20 17:36 Freq: Status: Active Protocol: Document 03/26/21 16:00 DCW (Rec: 03/26/21 16:47 DCW [id number]) Cardio Equipment Upper Body Ergometer (UBE) Duration (Minutes) 6 Seat Position in Wheelchair Height 2.5 Therapeutic Exercises Sitting Exercises 9 Sitting Exercise Name Hip Adduction Ball Squeeze Side bilateral 8 Sitting Exercise Name Balloon Volley Resistance 2# 7 Sitting Exercise Name Overhead Press Side bilateral Resistance 10# Equipment Used PVC 6 Sitting Exercise Name Biceps Curls Side bilateral Resistance 10# Equipment Used PVC 5 Sitting Exercise Name Hip Abduction Side bilateral Resistance Lv 3 Equipment Used T-band 4 Sitting Exercise Name Ankle DF/PF/Inv/Ev Side bilateral Resistance Lv 3 Equipment Used T-band 3 Sitting Exercise Name HS Curls Side bilateral Resistance Lv 3 Equipment Used T-band 2 Sitting Exercise Name Marching Side bilateral Resistance 5# 1 Sitting Exercise Name LAQ Side bilateral Resistance 5# Standing Exercises 1 Standing Exercise Name Sit<->Stand Equipment Used // bars Reps/Minutes 3x5 Comments Min Ax1 PT-OP-T Assessment and Plan Start: 01/02/20 17:36 Freq: Status: Active Protocol: Document 03/26/21 16:00 DCW (Rec: 03/26/21 16:47 DCW [id number]) Physical Therapy Assessment Impairments Impairments Activity Tolerance,Balance, Functional Activities, Functional Mobility,Gait,Pain, Posture,ROM,Soft Tissue Mobility,Strength,Transfers Goals Four Impairment Multiple falls at care center [facility] Goal (LTG) Pt to report no falls over the course of two months LTG Duration Met Three Impairment Transfers [facility] Goal (LTG) Pt to perform stand-pivot transfer CGA with FWW LTG Duration 03/22/21 Two Impairment Pt unable to tolerate standing for more than 10 seconds [facility] Goal (LTG) Pt to stand using FWW /c Min Ax1 for 90 seconds LTG Duration 03/22/21 One Impairment LE weakness Lens Blocker Goal (LTG) Ankle and knee MMT to to 3+/5 bilaterally Hip MMT to 4/5 bilaterally LTG Duration 03/22/21 Assessment Summary Assessment Pt performed fairly well today , did note she was feeling fatigued today, appeared slightly more lethargic. Physical Therapy Plan Frequency and Duration Frequency of Treatment 1x/Week Duration of Treatment 12 weeks Plan of Care Start Date 03/21/21 Plan of Care End Date 06/14/21 Therapeutic Interventions Therapeutic Interventions Aquatic Therapy,Balance Training,Coordination Training ,Gait Training,Home Exercise Program,Joint Mobilizations, Manual Therapy,Neuromuscular Re-education,Patient/Caregiver Education,Self-Care/Home Management,Soft Tissue Mobilization,Therapeutic Activities,Therapeutic Exercises,Wheelchair Management Next Visit Focus/Plan Next Note Type Treatment Note Next Visit Plan standing with fWW, transfer training, increased activity tolerance
--- NOTE | 2021-04-04 16:57 | PT.OTN ---
Current Diagnoses Multiple sclerosis (04/04/21) Pain in left knee (04/04/21) Pain in left ankle and joints of left foot (04/04/21) Weakness (04/04/21) Other fatigue (04/04/21) Physical Therapy Treatment Note PT-OP-A Visit Information Start: 01/02/20 17:36 Freq: Status: Active Protocol: Document 04/04/21 16:00 DCW (Rec: 04/04/21 16:57 DCW [id number]) Out-Patient Physical Therapy Visit Information Visit Information Visit Type Treatment Note Visit Start Time 16:00 Visit Stop Time 16:45 Total Visit Minutes 45 Visit Number 47 Number of PROPERTY AND EQUIPMENT CLERK Visits 0 Evaluation Information Evaluation Date 01/02/20 PT-OP-B Current Condition Start: 01/02/20 17:36 Freq: Status: Active Protocol: Document 01/02/20 16:45 DCW (Rec: 01/02/20 18:00 DCW [id number]) Current Condition History of Current Condition Onset Date Multi-year history Current Complaints MS, fatigue, weakness, L knee pain, L ankle pain History of Current Condition Pt is a 64 year old female with a long-standing history of Multiple Sclerosis. Pt currently mobilizes in her manual wheelchair, and lives at a local care center. Pt has a long-standing history of Physical Therapy off and on at this facility over the past six years, and was working with PT on ambulation, strengthening, and transfers prior to the Covid-19 shut- down, but pt was discharged after her care facility had a mandatory shut-down, and pt was unable to attend physical therapy for ~3 months. Over this time, pt unfortunately spent most of her time lying in bed, which got even worse after she suffered multiple falls when trying to transfer, resulting in a sore left knee and ankle, and an overall refusal to do anything out of bed. Pt reports extreme pain when doing anything in standing, and she feels she has gotten substantially weaker since her last PT session. Pt's sister and [id number] also attended her session today, and report they are trying to get her in for an Ortho consult, and just left a message hoping to schedule an appointment earlier today. Prior Treatments and Tests Prior history of PT Knee x-ray: IMPRESSION: Moderate medial compartment degenerative knee joint osteoarthritis, no fracture found. If unusual symptoms persist followup by MR or delayed plain film imaging may be warranted. per Chauncey Dia M.D. on 12/01/2019 Ankle x-ray: IMPRESSION: No acute trauma found. Exostosis and chronic appearing accessory ossicle or old avulsion fragment as noted. per Chauncey Dia M.D. on Future Testing and Treatments Planned Possible MRI, Ortho consult Treatment Goals Patient/Caregiver Goals Pt wants to transfer more safely PT-OP-C Subjective Start: 01/02/20 17:36 Freq: Status: Active Protocol: Document 04/04/21 16:00 DCW (Rec: 04/04/21 16:57 DCW [id number]) OP-PT Subjective Patient Comments Patient Comments Pt reports she is fine today , but didn't know she had therapy today, so she is a little stiff. PT-OP-F Manual Assessment Start: 01/02/20 17:36 Freq: Status: Active Protocol: Document 03/21/21 16:00 DCW (Rec: 03/21/21 16:07 DCW [id number]) Manual Assessments Joint Mobility Assessment Joint Mobility Assessment Continued increased L valgus laxity PT-OP-G Mobility & Gait Start: 01/02/20 17:36 Freq: Status: Active Protocol: Document 03/21/21 16:00 DCW (Rec: 03/21/21 16:07 DCW [id number]) OP Mobility Evaluation Transfers Sit to Stand Mod Ax1 in // bars, verbal cues for hand placement OP Gait Assessment Factors Limiting Gait Function Factors Limiting Gait Function Abnormal Tonal Influences, Decreased Activity Tolerance, Decreased Strength,Difficulty Following Directions, Incoordination,Limited Range of Motion,Pain,Poor Balance, Poor Safety Awareness Comments Gait Comments Unable to perform gait activities or pre-gait weight- shift in // bars PT-OP-L Special Tests Start: 01/02/20 17:36 Freq: Status: Active Protocol: Document 01/02/20 16:45 DCW (Rec: 01/02/20 18:00 DCW [id number]) Special Tests Knee Special Tests Kin Test Test Results Positive left Comments Performed in sitting Posterior Draw Test Results Negative Anterior Draw Test Results Negative Varus- 25 Degrees Test Results Negative Varus- 0 Degrees Test Results Negative Valgus- 25 Degrees Test Results Positive left Valgus- 0 Degrees Test Results Positive left PT-OP-M Strength Start: 01/02/20 17:36 Freq: Status: Active Protocol: Document 03/21/21 16:00 DCW (Rec: 03/21/21 16:07 DCW [id number]) Hip Strength Hip Manual Muscle Testing Right Flexion (L2) 4+ Good+ Abduction 4 Good Adduction 4 Good Left Flexion (L2) 4- Good- Abduction 3+ Fair+ Adduction 4- Good- Knee Strength Knee Manual Muscle Testing Right Flexion (S2) 4+ Good+ Extension (L3) 4+ Good+ Left Flexion (S2) 3+ Fair+ Extension (L3) 3+ Fair+ Ankle/Foot Strength Ankle and Foot Manual Muscle Testing Right Dorsiflexion (L4) 4- Good- Plantarflexion (S1) 3 Fair Inversion 4 Good Eversion (S1) 4 Good Left Dorsiflexion (L4) 4- Good- Plantarflexion (S1) 3 Fair Inversion 3- Fair- Eversion (S1) 3- Fair- PT-OP-Q Treatments Start: 01/02/20 17:36 Freq: Status: Active Protocol: Document 04/04/21 16:00 DCW (Rec: 04/04/21 16:57 DCW [id number]) Cardio Equipment Upper Body Ergometer (UBE) Duration (Minutes) 6 Seat Position in Wheelchair Height 2.5 Therapeutic Exercises Sitting Exercises 9 Sitting Exercise Name Hip Adduction Ball Squeeze Side bilateral 8 Sitting Exercise Name Balloon Volley Resistance 2# 7 Sitting Exercise Name Overhead Press Side bilateral Resistance 10# Equipment Used PVC 6 Sitting Exercise Name Biceps Curls Side bilateral Resistance 10# Equipment Used PVC 5 Sitting Exercise Name Hip Abduction Side bilateral Resistance Lv 3 Equipment Used T-band 4 Sitting Exercise Name Ankle DF/PF/Inv/Ev Side bilateral Resistance Lv 3 Equipment Used T-band 3 Sitting Exercise Name HS Curls Side bilateral Resistance Lv 3 Equipment Used T-band 2 Sitting Exercise Name Marching Side bilateral Resistance 5# 1 Sitting Exercise Name LAQ Side bilateral Resistance 5# Standing Exercises 1 Standing Exercise Name Sit<->Stand Equipment Used // bars Reps/Minutes 3x5 Comments Min Ax1 PT-OP-T Assessment and Plan Start: 01/02/20 17:36 Freq: Status: Active Protocol: Document 04/04/21 16:00 DCW (Rec: 04/04/21 16:57 DCW [id number]) Physical Therapy Assessment Impairments Impairments Activity Tolerance,Balance, Functional Activities, Functional Mobility,Gait,Pain, Posture,ROM,Soft Tissue Mobility,Strength,Transfers Goals Four Impairment Multiple falls at care center [facility] Goal (LTG) Pt to report no falls over the course of two months LTG Duration Met Three Impairment Transfers [facility] Goal (LTG) Pt to perform stand-pivot transfer CGA with FWW LTG Duration 03/22/21 Two Impairment Pt unable to tolerate standing for more than 10 seconds Clay Modeler Goal (LTG) Pt to stand using FWW /c Min Ax1 for 90 seconds LTG Duration 03/22/21 One Impairment LE weakness Clay Modeler Goal (LTG) Ankle and knee MMT to to 3+/5 bilaterally Hip MMT to 4/5 bilaterally LTG Duration 03/22/21 Assessment Summary Assessment Pt tolerated treatment a bit better today than what she has been, improved sit<->stands with decreased assistance from PT. Physical Therapy Plan Frequency and Duration Frequency of Treatment 1x/Week Duration of Treatment 12 weeks Plan of Care Start Date 03/21/21 Plan of Care End Date 06/14/21 Therapeutic Interventions Therapeutic Interventions Aquatic Therapy,Balance Training,Coordination Training ,Gait Training,Home Exercise Program,Joint Mobilizations, Manual Therapy,Neuromuscular Re-education,Patient/Caregiver Education,Self-Care/Home Management,Soft Tissue Mobilization,Therapeutic Activities,Therapeutic Exercises,Wheelchair Management Next Visit Focus/Plan Next Note Type Treatment Note Next Visit Plan standing with fWW, transfer training, increased activity tolerance
--- NOTE | 2021-04-11 16:44 | PT.OTN ---
Current Diagnoses Multiple sclerosis (04/11/21) Pain in left knee (04/11/21) Pain in left ankle and joints of left foot (04/11/21) Weakness (04/11/21) Other fatigue (04/11/21) Physical Therapy Treatment Note PT-OP-A Visit Information Start: 01/02/20 17:36 Freq: Status: Active Protocol: Document 04/11/21 16:04 DCW (Rec: 04/11/21 16:44 DCW [id number]) Out-Patient Physical Therapy Visit Information Visit Information Visit Type Treatment Note Visit Start Time 16:04 Visit Stop Time 16:45 Total Visit Minutes 41 Visit Number 48 Number of SIDE SEAM MACHINE OPERATOR Visits 0 Evaluation Information Evaluation Date 01/02/20 PT-OP-B Current Condition Start: 01/02/20 17:36 Freq: Status: Active Protocol: Document 01/02/20 16:45 DCW (Rec: 01/02/20 18:00 DCW [id number]) Current Condition History of Current Condition Onset Date Multi-year history Current Complaints MS, fatigue, weakness, L knee pain, L ankle pain History of Current Condition Pt is a 64 year old female with a long-standing history of Multiple Sclerosis. Pt currently mobilizes in her manual wheelchair, and lives at a local care center. Pt has a long-standing history of Physical Therapy off and on at this facility over the past six years, and was working with PT on ambulation, strengthening, and transfers prior to the Covid-19 shut- down, but pt was discharged after her care facility had a mandatory shut-down, and pt was unable to attend physical therapy for ~3 months. Over this time, pt unfortunately spent most of her time lying in bed, which got even worse after she suffered multiple falls when trying to transfer, resulting in a sore left knee and ankle, and an overall refusal to do anything out of bed. Pt reports extreme pain when doing anything in standing, and she feels she has gotten substantially weaker since her last PT session. Pt's sister and [id number] also attended her session today, and report they are trying to get her in for an Ortho consult, and just left a message hoping to schedule an appointment earlier today. Prior Treatments and Tests Prior history of PT Knee x-ray: IMPRESSION: Moderate medial compartment degenerative knee joint osteoarthritis, no fracture found. If unusual symptoms persist followup by MR or delayed plain film imaging may be warranted. per Chauncey Dia M.D. on 12/01/2019 Ankle x-ray: IMPRESSION: No acute trauma found. Exostosis and chronic appearing accessory ossicle or old avulsion fragment as noted. per Chauncey Dia M.D. on Future Testing and Treatments Planned Possible MRI, Ortho consult Treatment Goals Patient/Caregiver Goals Pt wants to transfer more safely PT-OP-C Subjective Start: 01/02/20 17:36 Freq: Status: Active Protocol: Document 04/11/21 16:04 DCW (Rec: 04/11/21 16:44 DCW [id number]) OP-PT Subjective Patient Comments Patient Comments Pt appears to be in an unusually accounting representative mood today. PT-OP-F Manual Assessment Start: 01/02/20 17:36 Freq: Status: Active Protocol: Document 03/21/21 16:00 DCW (Rec: 03/21/21 16:07 DCW [id number]) Manual Assessments Joint Mobility Assessment Joint Mobility Assessment Continued increased L valgus laxity PT-OP-G Mobility & Gait Start: 01/02/20 17:36 Freq: Status: Active Protocol: Document 03/21/21 16:00 DCW (Rec: 03/21/21 16:07 DCW [id number]) OP Mobility Evaluation Transfers Sit to Stand Mod Ax1 in // bars, verbal cues for hand placement OP Gait Assessment Factors Limiting Gait Function Factors Limiting Gait Function Abnormal Tonal Influences, Decreased Activity Tolerance, Decreased Strength,Difficulty Following Directions, Incoordination,Limited Range of Motion,Pain,Poor Balance, Poor Safety Awareness Comments Gait Comments Unable to perform gait activities or pre-gait weight- shift in // bars PT-OP-L Special Tests Start: 01/02/20 17:36 Freq: Status: Active Protocol: Document 01/02/20 16:45 DCW (Rec: 01/02/20 18:00 DCW [id number]) Special Tests Knee Special Tests Kin Test Test Results Positive left Comments Performed in sitting Posterior Draw Test Results Negative Anterior Draw Test Results Negative Varus- 25 Degrees Test Results Negative Varus- 0 Degrees Test Results Negative Valgus- 25 Degrees Test Results Positive left Valgus- 0 Degrees Test Results Positive left PT-OP-M Strength Start: 01/02/20 17:36 Freq: Status: Active Protocol: Document 03/21/21 16:00 DCW (Rec: 03/21/21 16:07 DCW [id number]) Hip Strength Hip Manual Muscle Testing Right Flexion (L2) 4+ Good+ Abduction 4 Good Adduction 4 Good Left Flexion (L2) 4- Good- Abduction 3+ Fair+ Adduction 4- Good- Knee Strength Knee Manual Muscle Testing Right Flexion (S2) 4+ Good+ Extension (L3) 4+ Good+ Left Flexion (S2) 3+ Fair+ Extension (L3) 3+ Fair+ Ankle/Foot Strength Ankle and Foot Manual Muscle Testing Right Dorsiflexion (L4) 4- Good- Plantarflexion (S1) 3 Fair Inversion 4 Good Eversion (S1) 4 Good Left Dorsiflexion (L4) 4- Good- Plantarflexion (S1) 3 Fair Inversion 3- Fair- Eversion (S1) 3- Fair- PT-OP-Q Treatments Start: 01/02/20 17:36 Freq: Status: Active Protocol: Document 04/11/21 16:04 DCW (Rec: 04/11/21 16:44 DCW [id number]) Cardio Equipment Upper Body Ergometer (UBE) Duration (Minutes) 6 Seat Position in Wheelchair Height 2.5 Therapeutic Exercises Sitting Exercises 9 Sitting Exercise Name Hip Adduction Ball Squeeze Side bilateral 8 Sitting Exercise Name Balloon Volley Resistance 2# 7 Sitting Exercise Name Overhead Press Side bilateral Resistance 10# Equipment Used PVC 6 Sitting Exercise Name Biceps Curls Side bilateral Resistance 10# Equipment Used PVC 5 Sitting Exercise Name Hip Abduction Side bilateral Resistance Lv 3 Equipment Used T-band 4 Sitting Exercise Name Ankle DF/PF/Inv/Ev Side bilateral Resistance Lv 3 Equipment Used T-band 3 Sitting Exercise Name HS Curls Side bilateral Resistance Lv 3 Equipment Used T-band 2 Sitting Exercise Name Marching Side bilateral Resistance 5# 1 Sitting Exercise Name LAQ Side bilateral Resistance 5# Standing Exercises 1 Standing Exercise Name Sit<->Stand Equipment Used // bars Reps/Minutes 3x5 Comments Min Ax1 PT-OP-T Assessment and Plan Start: 01/02/20 17:36 Freq: Status: Active Protocol: Document 04/11/21 16:04 DCW (Rec: 04/11/21 16:44 DCW [id number]) Physical Therapy Assessment Impairments Impairments Activity Tolerance,Balance, Functional Activities, Functional Mobility,Gait,Pain, Posture,ROM,Soft Tissue Mobility,Strength,Transfers Goals Four Impairment Multiple falls at care center [facility] Goal (LTG) Pt to report no falls over the course of two months LTG Duration Met Three Impairment Transfers [facility] Goal (LTG) Pt to perform stand-pivot transfer CGA with FWW LTG Duration 03/22/21 Two Impairment Pt unable to tolerate standing for more than 10 seconds Assistant Professor Sculpture Goal (LTG) Pt to stand using FWW /c Min Ax1 for 90 seconds LTG Duration 03/22/21 One Impairment LE weakness Assistant Professor Sculpture Goal (LTG) Ankle and knee MMT to to 3+/5 bilaterally Hip MMT to 4/5 bilaterally LTG Duration 03/22/21 Assessment Summary Assessment Pt still doing better with sit <->stand, after initial improved mood, was rather lethargic today. Physical Therapy Plan Frequency and Duration Frequency of Treatment 1x/Week Duration of Treatment 12 weeks Plan of Care Start Date 03/21/21 Plan of Care End Date 06/14/21 Therapeutic Interventions Therapeutic Interventions Aquatic Therapy,Balance Training,Coordination Training ,Gait Training,Home Exercise Program,Joint Mobilizations, Manual Therapy,Neuromuscular Re-education,Patient/Caregiver Education,Self-Care/Home Management,Soft Tissue Mobilization,Therapeutic Activities,Therapeutic Exercises,Wheelchair Management Next Visit Focus/Plan Next Note Type Treatment Note Next Visit Plan standing with fWW, transfer training, increased activity tolerance
--- NOTE | 2021-05-17 14:52 | PT.OPDS ---
Current Diagnoses Multiple sclerosis (04/11/21) Pain in left knee (04/11/21) Pain in left ankle and joints of left foot (04/11/21) Weakness (04/11/21) Other fatigue (04/11/21) Visit Care Team Role Provider Type JJ Escudero Attending Provider Advanced Newspaper Photographer Primary Care Provider Referring Provider Specialty: [facility] Address: [address] [place] [address], [facility] Email: [email or web address] Visit Number Visit Number [id number] Discharge Summary PT-OP-B Current Condition Start: 01/02/20 17:36 Freq: Status: Active Protocol: Document 01/02/20 16:45 DCW (Rec: 01/02/20 18:00 DCW [id number]) Current Condition History of Current Condition Onset Date Multi-year history Current Complaints MS, fatigue, weakness, L knee pain, L ankle pain History of Current Condition Pt is a 64 year old female with a long-standing history of Multiple Sclerosis. Pt currently mobilizes in her manual wheelchair, and lives at a local care [facility]. Pt has a long-standing history of Physical Therapy off and on at this facility over the past six years, and was working with PT on ambulation, strengthening, and transfers prior to the Covid-19 shut- down, but pt was discharged after her care facility had a mandatory shut-down, and pt was unable to attend physical therapy for ~3 months. Over this time, pt unfortunately spent most of her time lying in bed, which got even worse after she suffered multiple falls when trying to transfer, resulting in a sore left knee and ankle, and an overall refusal to do anything out of bed. Pt reports extreme pain when doing anything in standing, and she feels she has gotten substantially weaker since her last PT session. Pt's sister and [id number] also attended her session today, and report they are trying to get her in for an Ortho consult, and just left a message hoping to schedule an appointment earlier today. Prior Treatments and Tests Prior history of PT Knee x-ray: IMPRESSION: Moderate medial compartment degenerative knee joint osteoarthritis, no fracture found. If unusual symptoms persist followup by MR or delayed plain film imaging may be warranted. per Chauncey Dia M.D. on 12/01/2019 Ankle x-ray: IMPRESSION: No acute trauma found. Exostosis and chronic appearing accessory ossicle or old avulsion fragment as noted. per Chauncey Dia M.D. 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 PT-OP-F Manual Assessment Start: 01/02/20 17:36 Freq: Status: Active Protocol: Document 03/21/21 16:00 DCW (Rec: 03/21/21 16:07 DCW [id number]) Manual Assessments Joint Mobility Assessment Joint Mobility Assessment Continued increased L valgus laxity PT-OP-G Mobility & Gait Start: 01/02/20 17:36 Freq: Status: Active Protocol: Document 03/21/21 16:00 DCW (Rec: 03/21/21 16:07 DCW [id number]) OP Mobility Evaluation Transfers Sit to Stand Mod Ax1 in // bars, verbal cues for hand placement OP Gait Assessment Factors Limiting Gait Function Factors Limiting Gait Function Abnormal Tonal Influences, Decreased Activity Tolerance, Decreased Strength,Difficulty Following Directions, Incoordination,Limited Range of Motion,Pain,Poor Balance, Poor Safety Awareness Comments Gait Comments Unable to perform gait activities or pre-gait weight- shift in // bars PT-OP-L Special Tests Start: 01/02/20 17:36 Freq: Status: Active Protocol: Document 01/02/20 16:45 DCW (Rec: 01/02/20 18:00 DCW [id number]) Special Tests Knee Special Tests Kin Test Test Results Positive left Comments Performed in sitting Posterior Draw Test Results Negative Anterior Draw Test Results Negative Varus- 25 Degrees Test Results Negative Varus- 0 Degrees Test Results Negative Valgus- 25 Degrees Test Results Positive left Valgus- 0 Degrees Test Results Positive left PT-OP-M Strength Start: 01/02/20 17:36 Freq: Status: Active Protocol: Document 03/21/21 16:00 DCW (Rec: 03/21/21 16:07 DCW [id number]) Hip Strength Hip Manual Muscle Testing Right Flexion (L2) 4+ Good+ Abduction 4 Good Adduction 4 Good Left Flexion (L2) 4- Good- Abduction 3+ Fair+ Adduction 4- Good- Knee Strength Knee Manual Muscle Testing Right Flexion (S2) 4+ Good+ Extension (L3) 4+ Good+ Left Flexion (S2) 3+ Fair+ Extension (L3) 3+ Fair+ Ankle/Foot Strength Ankle and Foot Manual Muscle Testing Right Dorsiflexion (L4) 4- Good- Plantarflexion (S1) 3 Fair Inversion 4 Good Eversion (S1) 4 Good Left Dorsiflexion (L4) 4- Good- Plantarflexion (S1) 3 Fair Inversion 3- Fair- Eversion (S1) 3- Fair- PT-OP-T Assessment and Plan Start: 01/02/20 17:36 Freq: Status: Active Protocol: Document 05/17/21 14:50 DCW (Rec: 05/17/21 14:52 DCW [id number]) Physical Therapy Assessment Assessment Summary Assessment Pt did not show up to her appointment today, has been somewhat resistant to therapy recently. Spoke with pt's sister, who is DPOA, agreeable to discharge at this time. Sister will either try to get PT at pt's SNF, or wait until pt can attend therapy more regularly here.
== END 2021-05-22 13:26 ==
LOC: PHYS 16:00
PROVIDERS: PCP Nurse Practitioner Family; Referring Provider Nurse Practitioner Family; Visit Provider Nurse Practitioner Family
DX: M25.562 Pain in left knee (principal); M25.572 Pain in left ankle and joints of left foot; G35 Multiple sclerosis; R53.1 Weakness; R53.83 Other fatigue
CPT/HCPCS: 97110; 97112; 97163; 97530

== ENCOUNTER → 2021-05-08 09:01 | Outpatient (ROUT) | payer OTHER, SELFPAY ==
[2021-05-08 09:50] LABS: Alanine Aminotransferase 25 IU/L (<35); Albumin 3.3 g/dL (3.5-5.0); Albumin Globulin Ratio 1.2 (1.0-2.8); Alkaline Phosphatase 68 U/L (38-126); Aspartate Aminotransferase 22 IU/L (14-36); BUN Creatinine Ratio 24.1 (6-22); Bilirubin Total 0.4 mg/dL (0.2-1.3); Blood Urea Nitrogen 19 mg/dL (7-17); Calcium 8.8 mg/dL (8.4-10.2); Carbon Dioxide 28 mmol/L (22-32); Chloride 106 mmol/L (98-107); Cholesterol 195 mg/dL (140-199); Estimated Glomerular Filt Rate > 60.0 mL/min (>60); Globulin 2.8 g/dL (1.7-4.1); Glucose 83 mg/dL (80-110); HDL Cholesterol 30 mg/dL (40-60); HEMOLYSIS < 15 (0-50); LDL Cholesterol Calculated 133 mg/dL (<100); Potassium 4.1 mmol/L (3.4-5.1); Sodium 139 mmol/L (137-145); Total Protein 6.1 g/dL (6.3-8.2); Triglycerides 160 mg/dL (35-150)
[2021-05-08 10:16] LABS: TSH w/ Reflex to FT4 3.65 uIU/mL (0.47-4.68)
== END ==
PROVIDERS: PCP Nurse Practitioner Family; Visit Provider Nurse Practitioner Family
DX: E88.09 Other disorders of plasma-protein metabolism, not elsewhere classified (principal); R79.89 Other specified abnormal findings of blood chemistry; E78.2 Mixed hyperlipidemia
CPT/HCPCS: 36415; 80053; 80061; 84443

== ENCOUNTER → 2021-06-15 17:56 | Outpatient (ROUT) | payer OTHER, SELFPAY ==
[2021-06-15 18:05] LABS: Appearance Urine UA CLOUDY; Bilirubin Urine UA NEGATIVE (NEGATIVE); Color Urine UA YELLOW; Glucose Urine UA NEGATIVE (Negative); Ketones Urine UA TRACE (NEGATIVE); Leukocyte Esterase Urine UA 3+ (NEGATIVE); Nitrite Urine UA NEGATIVE (Negative); Occult Blood Urine UA TRACE-LYSED (Negative); Protein Urine UA TRACE (Negative); Urobilinogen Urine UA 0.2 E.U./dL (0.2)
[2021-06-15 18:27] LABS: Bacteria Urine Many (>30); Culture Indicated Urine Specimen Cultured; RBC Urine None Seen (0-5/HPF); Squamous Epithelial Cell Urine 1-5 /HPF (0-5/HPF); Transitional Epi Cells Urine 5-10/HPF (0-5/HPF); WBC Urine >100/HPF (0-5/HPF)
== END ==
PROVIDERS: PCP Nurse Practitioner Family; Visit Provider Nurse Practitioner Family
DX: R30.0 Dysuria (principal)
CPT/HCPCS: 81001; 87077; 87086

== ENCOUNTER → 2021-12-03 06:46 | Outpatient (CLI) | payer OTHER, SELFPAY ==
[2021-12-03 08:38] LABS: Add Manual Diff / Slide Review NO; Basophils Absolute Auto 100 /uL (0-100); Basophils Percent Auto 0.9 % (0-2); Eosinophils Absolute Auto 200 /uL (0-450); Eosinophils Percent Auto 2.3 % (2-4); Hematocrit 45.9 % (36-46); Hemoglobin 15.2 g/dL (12.0-16.0); Lymphocytes Absolute Auto 2600 /uL (1100-4500); Lymphocytes Percent Auto 30.5 % (25-40); Mean Corpuscular HGB Conc 33.1 % (30-36); Mean Corpuscular Hemoglobin 30.3 PG (26-34); Mean Corpuscular Volume 91.8 fL (80-100); Monocytes Absolute Auto 600 /uL (0-900); Monocytes Percent Auto 7.6 % (3-14); Neutrophils Absolute Auto 5000 /uL (1500-7000); Neutrophils Percent Auto 58.7 % (50-75); Platelet Count 213 X10^3/uL (150-400); Red Cell Distribution Width 14.9 % (11.6-14.8); White Blood Cell Count 8.5 X10^3/uL (4.5-11.0)
[2021-12-03 09:10] LABS: Alanine Aminotransferase 22 IU/L (<35); Albumin Globulin Ratio 1.2 (1.0-2.8); Alkaline Phosphatase 87 U/L (38-126); Aspartate Aminotransferase 24 IU/L (14-36); BUN Creatinine Ratio 22.7 (6-22); Bilirubin Total 0.3 mg/dL (0.2-1.3); Blood Urea Nitrogen 20 mg/dL (7-17); Carbon Dioxide 33 mmol/L (22-32); Chloride 106 mmol/L (98-107); Cholesterol 268 mg/dL (140-199); Estimated Glomerular Filt Rate > 60 mL/min (>60); Globulin 3.4 g/dL (1.7-4.1); Glucose 114 mg/dL (80-110); HDL Cholesterol 39 mg/dL (40-60); HEMOLYSIS < 15 (0-50); LDL Cholesterol Calculated 166 mg/dL (<100); Potassium 3.9 mmol/L (3.4-5.1); Sodium 143 mmol/L (137-145); Total Protein 7.4 g/dL (6.3-8.2); Triglycerides 315 mg/dL (35-150)
[2021-12-03 09:33] LABS: Thyroid Stimulating Hormone 7.04 uIU/mL (0.47-4.68)
== END ==
PROVIDERS: Family Provider Family Medicine; PCP Family Medicine; Referring Provider Family Medicine; Visit Provider Family Medicine
DX: G35 Multiple sclerosis (principal); E78.2 Mixed hyperlipidemia; Z13.29 Encounter for screening for other suspected endocrine disorder; Z00.00 Encounter for general adult medical examination without abnormal findings
CPT/HCPCS: 36415; 80053; 80061; 84443; 85025

== ENCOUNTER → 2021-12-19 11:01 | Outpatient (ROUT) | payer OTHER, SELFPAY ==
[2021-12-19 11:20] LABS: Appearance Urine UA CLOUDY; Bilirubin Urine UA NEGATIVE (NEGATIVE); Color Urine UA YELLOW; Glucose Urine UA NEGATIVE (Negative); Ketones Urine UA NEGATIVE (NEGATIVE); Leukocyte Esterase Urine UA 3+ (NEGATIVE); Nitrite Urine UA NEGATIVE (Negative); Occult Blood Urine UA TRACE-LYSED (Negative); Protein Urine UA NEGATIVE (Negative); Urobilinogen Urine UA 0.2 E.U./dL (0.2)
[2021-12-19 11:29] LABS: Amorphous Sediment Urine 1+; Bacteria Urine Few (2-10); RBC Urine 5-10/HPF (0-5/HPF); WBC Urine 5-10/HPF (0-5/HPF)
[2021-12-19 11:30] LABS: Culture Indicated Urine Specimen Cultured
== END ==
PROVIDERS: Family Provider Family Medicine; PCP Family Medicine; Visit Provider Family Medicine
DX: N39.0 Urinary tract infection, site not specified (principal)
CPT/HCPCS: 81001; 87086; 87899

== ENCOUNTER → 2022-01-06 16:49 | Outpatient (CLI) | payer OTHER, SELFPAY ==
[2022-01-06 18:11] LABS: Free T3, Triiodothyronine Free 3.06 pg/mL (2.77-5.27); Free T4, Direct Thyroxine 1.19 ng/dL (0.78-2.19)
[2022-01-06 18:25] LABS: TSH w/ Reflex to FT4 2.48 uIU/mL (0.47-4.68); Thyroid Stimulating Hormone 2.51 uIU/mL (0.47-4.68)
== END ==
PROVIDERS: Family Provider Family Medicine; PCP Pediatrics; Referring Provider Pediatrics; Visit Provider Pediatrics
DX: I10 Essential (primary) hypertension (principal); Z13.29 Encounter for screening for other suspected endocrine disorder
CPT/HCPCS: 36415; 84439; 84443; 84481

== ENCOUNTER 2022-06-03 16:00 | Outpatient (RCR) | payer OTHER, SELFPAY ==
--- NOTE | 2021-12-25 16:08 | PT-OP ANOTE ---
Addendum entered and electronically signed by Jacquie Bernal PT 12/31/21 08:45: Pt arrived late and was able to participate in evaluation. Original Note: Pt no-showed initial eval today. [facility] was not working yesterday for reminders.
--- NOTE | 2021-12-25 17:00 | PT.OPPOC ---
Physical, Occupational & Speech Therapy At [facility] Current Diagnoses Multiple sclerosis (12/25/21) Personal history of (healed) traumatic fracture (12/25/21) Visit Care Team Role Provider Type Teri Singh MD Attending Provider Physician Family Provider Primary Care Provider Referring Provider Specialty: [facility] Practice Address: [address] [place] [address], [facility] Phone: Fax: Email: [email or web address] Plan Of Care PT-OP-T Assessment and Plan Start: 12/23/21 17:38 Freq: Status: Active Protocol: Document 12/25/21 16:45 AW (Rec: 12/31/21 08:54 AW [id number]) Physical Therapy Assessment Rehab Potential Rehabilitation Potential Fair Evaluation Complexity Number of Personal Factors/Comorbidities 3 or More Number of Body Systems Impaired 4 or More Clinical Presentation at Evaluation Unstable Impairments Impairments Activity Tolerance,Balance, Functional Activities, Functional Mobility,Gait,Pain, Posture,ROM,Soft Tissue Mobility,Strength,Transfers Other Concerns Barriers to Rehabilitation MS progression, chronicity of deficits, severely sedentary are expected to affect rehab outcomes Goals Three Impairment unable to transfer Care Home Goal (LTG) Pt will perform stand pivot transfer with FWW mod A x 1 LTG Duration 03/27/22 Two Impairment unable to stand Short Term Goal (STG) Pt will complete one rep sit to stand max A x 1 using FWW STG Duration 02/05/22 Care Home Goal (LTG) Pt will stand using FWW mod A x 1 for 60 seconds LTG Duration 03/27/22 One Impairment LE weakness Warm In Goal (LTG) Ankle and knee MMT improves to 4-/5 bilaterally. Hip MMT improves to 4/5 bilaterally. LTG Duration 03/27/22 Assessment Summary Assessment Sabiha is a 66 yo woman with MS who attends outpatient physical therapy with severe deconditioning and bilateral knee pain. She has been treated here in this clinic over the years and at last encounter was able to manager infrastructure parallel bars min assist. She is now unable to stand with max assist x 2 and is primarily mobilized with melissa lift at her care facility. Prognosis is guarded but pt wishes to be able to stand and transfer so she can get in a car and go for a ride with her family. Physical therapy should focus on improving strength and activity tolerance with the goal of transferring with FWW. Physical Therapy Plan Frequency and Duration Frequency of Treatment 2x/Week Duration of Treatment 3 months Plan of Care Start Date 12/25/21 Plan of Care End Date 03/27/22 Therapeutic Interventions Therapeutic Interventions Aquatic Therapy,Balance Training,Coordination Training ,Gait Training,Home Exercise Program,Manual Therapy, Neuromuscular Re-education, Patient/Caregiver Education, Self-Care/Home Management,Soft Tissue Mobilization, Therapeutic Activities, Therapeutic Exercises, Wheelchair Management Modalities Cold Pack/Ice Massage,Hot Packs Next Visit Focus/Plan Next Note Type Treatment Note Next Visit Plan LE strengthening in seated position. Initiate pre- standing progression - weightbearing. Plan of Care Dates Plan of Care Start Date 12/25/21 Plan of Care End Date 03/27/22 Electronically Signed by: Jacquie Bernal, KANDICE 12/31/21 0856 If you are in agreement with this Plan of Care, please return a signed and dated copy. I have reviewed this Plan of Care and certify that the skilled therapy services above are required to meet the patient?s needs. Physician Signature Date Printed Name and Credentials Clinical Instructor Signature Printed Name and Credentials
--- NOTE | 2021-12-25 17:00 | PT.OIE ---
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) Depression (Unknown) Frequent UTI (Unknown) History of fracture (2019) Hyperlipidemia (Unknown) Multiple sclerosis (1972) Vitamin B deficiency Visit Care Team Role Provider Type Teri Singh MD Attending Provider Physician Family Provider Primary Care Provider Referring Provider Specialty: Family Practice Address: [address] [place] [address], [id number] Phone: Fax: Email: [email or web address] Physical Therapy Initial Evaluation PT-OP-A Visit Information Start: 12/23/21 17:38 Freq: Status: Active Protocol: Document 12/25/21 16:45 AW (Rec: 12/25/21 17:16 AW [id number]) Out-Patient Physical Therapy Visit Information Visit Information Visit Type Initial Evaluation Visit Start Time 16:15 Visit Stop Time 16:55 Total Visit Minutes 40 Visit Number 1 Number of SCHOOL HEALTH ASSISTANT Visits 0 Evaluation Information Evaluation Date 12/25/21 Precautions Precautions not ambulatory PT-OP-B Current Condition Start: 12/23/21 17:38 Freq: Status: Active Protocol: Document 12/25/21 16:45 AW (Rec: 12/25/21 17:16 AW [id number]) Current Condition History of Current Condition Onset Date multi-year history Current Complaints MS; bilateral knee pain; generalized weakness and impaired mobility History of Current Condition Sabiha lives at a local assisted living. She is confused and does not know why she is here. Her sister arrives usp through this assessment and notes pt currently has a UTI which likely increases her confusion . Pt is mostly in bed during the day. She gets her meals in bed or in her recliner. Her chair puts her in a flexed position. Facility staff use a emlissa lift to transfer her. Pt and her sister believe she was able to transfer with FWW and assist about a year ago. She has a supportive sister ( Shaina) and brother in law who live nearby. Sabiha receives total assist for ADL' s including dressing, bathing, and pt uses disposable briefs and gets changed in bed or in her recliner. Pandemic restrictions severely reduced her activity level. Prior Treatments and Tests Pt has worked with PT at this clinic over the years. At last discharge, she was able to complete sit to hris administrator the parallel bars min A x 1. Treatment Goals Patient/Caregiver Goals Stand and transfer with a walker. Especially would like to be able to transfer in and out of a [employer] van to be able to go for a drive with family. Prior Functional Status Baseline Function- ADL's Needs Assist Baseline Function- Mobility Needs Assist Baseline Function- Gait Pt is not ambulatory. Baseline Function- Other Per prior PT notes, pt was able to sit<>stand using parallel bars min A x 1 ~9 months ago. Current Functional Impairments (Reported) Functional Limitations- Mobility/Gait Pt requires melissa lift for transfers. Unable to stand with max A x 2 Personal Factors Other Personal Factors That May Effect MS, cognitive impairment, and Therapy/Recovery chronicity of deficits will be barriers to rehab. Pt does have supportive family who can assist her to complete exercise at home. PT-OP-F Manual Assessment Start: 12/23/21 17:38 Freq: Status: Active Protocol: Document 12/25/21 16:45 AW (Rec: 12/30/21 17:42 AW [id number]) Manual Assessments Joint Mobility Assessment Joint Mobility Assessment Left knee laxity and pain with valgus-directed force PT-OP-G Mobility & Gait Start: 12/23/21 17:38 Freq: Status: Active Protocol: Document 12/25/21 16:45 AW (Rec: 12/30/21 17:44 AW [id number]) OP Mobility Evaluation Transfers Sit to Stand Unable with max A x 2. Pt needs cues and manual facilitation for knee extension but is unable to fully extend. Cues needed for hand placement OP Gait Assessment Comments Gait Comments Unable to stand with max A x2. Unable to ambulate. Pt reports severe knee pain with any weightbearing. PT-OP-J Posture/Palpation/Skin Start: 12/23/21 17:38 Freq: Status: Active Protocol: Document 12/25/21 16:45 AW (Rec: 12/30/21 17:49 AW [id number]) Posture Evaluation Comments Posture Comments Pt sits with flexed trunk in a wheelchair at this encounter. Per pt and her sister, this mimics her posture in bed and in her recliner. She has enough trunk strength to sit edge of chair with fair control and able to withstand mild to moderate perturbations . PT-OP-M Strength Start: 12/23/21 17:38 Freq: Status: Active Protocol: Document 12/25/21 16:45 AW (Rec: 12/30/21 17:47 AW [id number]) Hip Strength Hip Manual Muscle Testing B Flexion (L2) 3+ Fair+ Abduction 3+ Fair+ Adduction 3+ Fair+ Knee Strength Knee Manual Muscle Testing B Flexion (S2) 3+ Fair+ Extension (L3) 3 Fair Ankle/Foot Strength Ankle and Foot Manual Muscle Testing B Dorsiflexion (L4) 3+ Fair+ Plantarflexion (S1) 3- Fair- Inversion 3+ Fair+ Eversion (S1) 3+ Fair+ PT-OP-Q Treatments Start: 12/23/21 17:38 Freq: Status: Active Protocol: Document 12/25/21 16:45 AW (Rec: 12/31/21 08:54 AW [id number]) Therapeutic Exercises Sitting Exercises heel raise Sitting Exercise Name heel raise Side bilateral Resistance AROM Reps/Minutes x10 Comments HEP HS curl Sitting Exercise Name HS curl Side bilateral Resistance TB1 Reps/Minutes x10 with sister assisting Comments HEP LAQ Sitting Exercise Name LAQ Side bilateral Resistance AROM Reps/Minutes x10 Comments HEP Self-Care/Home Management Treatment Education Patient Education Fall Risk,Home Exercise Program,Safety Other Education Educated pt on evaluation findings and realistic expectations for therapy in light of severely sedentary baseline and chronicity of deficits. Pt and her sister understood. PT-OP-T Assessment and Plan Start: 12/23/21 17:38 Freq: Status: Active Protocol: Document 12/25/21 16:45 AW (Rec: 12/31/21 08:54 AW [id number]) Physical Therapy Assessment Rehab Potential Rehabilitation Potential Fair Evaluation Complexity Number of Personal Factors/Comorbidities 3 or More Number of Body Systems Impaired 4 or More Clinical Presentation at Evaluation Unstable Impairments Impairments Activity Tolerance,Balance, Functional Activities, Functional Mobility,Gait,Pain, Posture,ROM,Soft Tissue Mobility,Strength,Transfers Other Concerns Barriers to Rehabilitation MS progression, chronicity of deficits, severely sedentary are expected to affect rehab outcomes Goals Three Impairment unable to transfer Guest Services Assistant Goal (LTG) Pt will perform stand pivot transfer with FWW mod A x 1 LTG Duration 03/27/22 Two Impairment unable to stand Short Term Goal (STG) Pt will complete one rep sit to stand max A x 1 using FWW STG Duration 02/05/22 Usp Goal (LTG) Pt will stand using FWW mod A x 1 for 60 seconds LTG Duration 03/27/22 One Impairment LE weakness Usp Goal (LTG) Ankle and knee MMT improves to 4-/5 bilaterally. Hip MMT improves to 4/5 bilaterally. LTG Duration 03/27/22 Assessment Summary Assessment Sabiha is a 66 yo woman with MS who attends outpatient physical therapy with severe deconditioning and bilateral knee pain. She has been treated here in this clinic over the years and at last encounter was able to hris administrator parallel bars min assist. She is now unable to stand with max assist x 2 and is primarily mobilized with melissa lift at her care facility. Prognosis is guarded but pt wishes to be able to stand and transfer so she can get in a car and go for a ride with her family. Physical therapy should focus on improving strength and activity tolerance with the goal of transferring with FWW. Physical Therapy Plan Frequency and Duration Frequency of Treatment 2x/Week Duration of Treatment 3 months Plan of Care Start Date 12/25/21 Plan of Care End Date 03/27/22 Therapeutic Interventions Therapeutic Interventions Aquatic Therapy,Balance Training,Coordination Training ,Gait Training,Home Exercise Program,Manual Therapy, Neuromuscular Re-education, Patient/Caregiver Education, Self-Care/Home Management,Soft Tissue Mobilization, Therapeutic Activities, Therapeutic Exercises, Wheelchair Management Modalities Cold Pack/Ice Massage,Hot Packs Next Visit Focus/Plan Next Note Type Treatment Note Next Visit Plan LE strengthening in seated position. Initiate pre- standing progression - weightbearing.
--- NOTE | 2022-01-02 17:25 | PT.OTN ---
Current Diagnoses Multiple sclerosis (01/02/22) Personal history of (healed) traumatic fracture (01/02/22) Physical Therapy Treatment Note PT-OP-A Visit Information Start: 12/23/21 17:38 Freq: Status: Active Protocol: Document 01/02/22 15:38 AW (Rec: 01/02/22 17:25 AW [id number]) Out-Patient Physical Therapy Visit Information Visit Information Visit Type Treatment Note Visit Start Time 15:15 Visit Stop Time 16:00 Total Visit Minutes 45 Visit Number 2 Number of MICROFILM MOUNTER Visits 0 Evaluation Information Evaluation Date 12/25/21 Precautions Precautions not ambulatory PT-OP-B Current Condition Start: 12/23/21 17:38 Freq: Status: Active Protocol: Document 12/25/21 16:45 AW (Rec: 12/25/21 17:16 AW [id number]) Current Condition History of Current Condition Onset Date multi-year history Current Complaints MS; bilateral knee pain; generalized weakness and impaired mobility History of Current Condition Sabiha lives at a local assisted living. She is confused and does not know why she is here. Her sister arrives senior living through this assessment and notes pt currently has a UTI which likely increases her confusion . Pt is mostly in bed during the day. She gets her meals in bed or in her recliner. Her chair puts her in a flexed position. Facility staff use a melissa lift to transfer her. Pt and her sister believe she was able to transfer with FWW and assist about a year ago. She has a supportive sister ( Shaina) and brother in law who live nearby. Sabiha receives total assist for ADL' s including dressing, bathing, and pt uses disposable briefs and gets changed in bed or in her recliner. Pandemic restrictions severely reduced her activity level. Prior Treatments and Tests Pt has worked with PT at this clinic over the years. At last discharge, she was able to complete sit to fryline attendant the parallel bars min A x 1. Treatment Goals Patient/Caregiver Goals Stand and transfer with a walker. Especially would like to be able to transfer in and out of a [employer] van to be able to go for a drive with family. Prior Functional Status Baseline Function- ADL's Needs Assist Baseline Function- Mobility Needs Assist Baseline Function- Gait Pt is not ambulatory. Baseline Function- Other Per prior PT notes, pt was able to sit<>stand using parallel bars min A x 1 ~9 months ago. Current Functional Impairments (Reported) Functional Limitations- Mobility/Gait Pt requires melissa lift for transfers. Unable to stand with max A x 2 Personal Factors Other Personal Factors That May Effect MS, cognitive impairment, and Therapy/Recovery chronicity of deficits will be barriers to rehab. Pt does have supportive family who can assist her to complete exercise at home. PT-OP-C Subjective Start: 12/23/21 17:38 Freq: Status: Active Protocol: Document 01/02/22 15:38 AW (Rec: 01/02/22 17:25 AW [id number]) OP-PT Subjective Patient Comments Patient Comments Pt arrives with her sister. Both report pt has barely been out of bed since last PT visit PT-OP-F Manual Assessment Start: 12/23/21 17:38 Freq: Status: Active Protocol: Document 12/25/21 16:45 AW (Rec: 12/30/21 17:42 AW [id number]) Manual Assessments Joint Mobility Assessment Joint Mobility Assessment Left knee laxity and pain with valgus-directed force PT-OP-G Mobility & Gait Start: 12/23/21 17:38 Freq: Status: Active Protocol: Document 12/25/21 16:45 AW (Rec: 12/30/21 17:44 AW [id number]) OP Mobility Evaluation Transfers Sit to Stand Unable with max A x 2. Pt needs cues and manual facilitation for knee extension but is unable to fully extend. Cues needed for hand placement OP Gait Assessment Comments Gait Comments Unable to stand with max A x2. Unable to ambulate. Pt reports severe knee pain with any weightbearing. PT-OP-J Posture/Palpation/Skin Start: 12/23/21 17:38 Freq: Status: Active Protocol: Document 12/25/21 16:45 AW (Rec: 12/30/21 17:49 AW [id number]) Posture Evaluation Comments Posture Comments Pt sits with flexed trunk in a wheelchair at this encounter. Per pt and her sister, this mimics her posture in bed and in her recliner. She has enough trunk strength to sit edge of chair with fair control and able to withstand mild to moderate perturbations . PT-OP-M Strength Start: 12/23/21 17:38 Freq: Status: Active Protocol: Document 12/25/21 16:45 AW (Rec: 12/30/21 17:47 AW [id number]) Hip Strength Hip Manual Muscle Testing B Flexion (L2) 3+ Fair+ Abduction 3+ Fair+ Adduction 3+ Fair+ Knee Strength Knee Manual Muscle Testing B Flexion (S2) 3+ Fair+ Extension (L3) 3 Fair Ankle/Foot Strength Ankle and Foot Manual Muscle Testing B Dorsiflexion (L4) 3+ Fair+ Plantarflexion (S1) 3- Fair- Inversion 3+ Fair+ Eversion (S1) 3+ Fair+ PT-OP-Q Treatments Start: 12/23/21 17:38 Freq: Status: Active Protocol: Document 01/02/22 15:38 AW (Rec: 01/02/22 17:25 AW [id number]) Therapeutic Exercises Sitting Exercises seated hip extension Sitting Exercise Name seated hip extension Resistance 2 block on ground Comments pt pushes foot into block resisted GH external rotation Sitting Exercise Name resisted GH ER Side bilateral Resistance TB2 Comments HEP resisted hip abduction Sitting Exercise Name resisted hip abduction Side bilateral Resistance TB2 Comments HEP resisted DF Sitting Exercise Name resisted DF Side bilateral Resistance TB2 Comments HEP heel raise Sitting Exercise Name heel raise Side bilateral Resistance AROM Reps/Minutes x10 Comments HEP HS curl Sitting Exercise Name HS curl Side bilateral Resistance TB2 Reps/Minutes x10 with sister assisting Comments HEP LAQ Sitting Exercise Name LAQ Side bilateral Resistance 2# Reps/Minutes x10 Comments HEP Self-Care/Home Management Treatment Education Patient Education Home Exercise Program Other Education Added seated hip abduction, dorsiflexion, and shoulder ER for HEP PT-OP-T Assessment and Plan Start: 12/23/21 17:38 Freq: Status: Active Protocol: Document 01/02/22 15:38 AW (Rec: 01/02/22 17:25 AW [id number]) Physical Therapy Assessment Goals Three Impairment unable to transfer Bluing Oven Tender Goal (LTG) Pt will perform stand pivot transfer with FWW mod A x 1 LTG Duration 03/27/22 Two Impairment unable to stand Short Term Goal (STG) Pt will complete one rep sit to stand max A x 1 using FWW STG Duration 02/05/22 Bluing Oven Tender Goal (LTG) Pt will stand using FWW mod A x 1 for 60 seconds LTG Duration 03/27/22 One Impairment LE weakness Assisted Goal (LTG) Ankle and knee MMT improves to 4-/5 bilaterally. Hip MMT improves to 4/5 bilaterally. LTG Duration 03/27/22 Assessment Summary Assessment Sabiha's rehab course will be challenging due to current degree of sedentary behavior. Since PT evaluation, she has been largely left in the bed. She was transferred via melissa to her wheelchair today. Her wheelchair puts her in a slumped position as does her recliner at the care facility. Focused today on seated strength. Pt was able to propel herself in w/c using UE 's when she left. Physical Therapy Plan Frequency and Duration Frequency of Treatment 2x/Week Duration of Treatment 3 months Plan of Care Start Date 12/25/21 Plan of Care End Date 03/27/22 Therapeutic Interventions Therapeutic Interventions Aquatic Therapy,Balance Training,Coordination Training ,Gait Training,Home Exercise Program,Manual Therapy, Neuromuscular Re-education, Patient/Caregiver Education, Self-Care/Home Management,Soft Tissue Mobilization, Therapeutic Activities, Therapeutic Exercises, Wheelchair Management Modalities Cold Pack/Ice Massage,Hot Packs Next Visit Focus/Plan Next Note Type Treatment Note Next Visit Plan LE strengthening in seated position. Progress UE strength . Initiate pre-standing progression - weightbearing.
--- NOTE | 2022-01-06 16:42 | PT.OTN ---
Current Diagnoses Multiple sclerosis (01/02/22) Personal history of (healed) traumatic fracture (01/02/22) Physical Therapy Treatment Note PT-OP-A Visit Information Start: 12/23/21 17:38 Freq: Status: Active Protocol: Document 01/06/22 16:03 DCW (Rec: 01/06/22 16:42 DCW [id number]) Out-Patient Physical Therapy Visit Information Visit Information Visit Type Treatment Note Visit Start Time 16:03 Visit Stop Time 16:45 Total Visit Minutes 42 Visit Number 3 Number of MINISTER Visits 0 Evaluation Information Evaluation Date 12/25/21 Precautions Precautions not ambulatory PT-OP-B Current Condition Start: 12/23/21 17:38 Freq: Status: Active Protocol: Document 12/25/21 16:45 AW (Rec: 12/25/21 17:16 AW [id number]) Current Condition History of Current Condition Onset Date multi-year history Current Complaints MS; bilateral knee pain; generalized weakness and impaired mobility History of Current Condition Sabiha lives at a local assisted living. She is confused and does not know why she is here. Her sister arrives alf through this assessment and notes pt currently has a UTI which likely increases her confusion . Pt is mostly in bed during the day. She gets her meals in bed or in her recliner. Her chair puts her in a flexed position. Facility staff use a melissa lift to transfer her. Pt and her sister believe she was able to transfer with FWW and assist about a year ago. She has a supportive sister ( Shaina) and brother in law who live nearby. Sabiha receives total assist for ADL' s including dressing, bathing, and pt uses disposable briefs and gets changed in bed or in her recliner. Pandemic restrictions severely reduced her activity level. Prior Treatments and Tests Pt has worked with PT at this clinic over the years. At last discharge, she was able to complete sit to business partner the parallel bars min A x 1. Treatment Goals Patient/Caregiver Goals Stand and transfer with a walker. Especially would like to be able to transfer in and out of a [employer] van to be able to go for a drive with family. Prior Functional Status Baseline Function- ADL's Needs Assist Baseline Function- Mobility Needs Assist Baseline Function- Gait Pt is not ambulatory. Baseline Function- Other Per prior PT notes, pt was able to sit<>stand using parallel bars min A x 1 ~9 months ago. Current Functional Impairments (Reported) Functional Limitations- Mobility/Gait Pt requires melissa lift for transfers. Unable to stand with max A x 2 Personal Factors Other Personal Factors That May Effect MS, cognitive impairment, and Therapy/Recovery chronicity of deficits will be barriers to rehab. Pt does have supportive family who can assist her to complete exercise at home. PT-OP-C Subjective Start: 12/23/21 17:38 Freq: Status: Active Protocol: Document 01/06/22 16:03 DCW (Rec: 01/06/22 16:42 DCW [id number]) OP-PT Subjective Patient Comments Patient Comments I'm nervous about today, it's like I'm starting all over again. PT-OP-F Manual Assessment Start: 12/23/21 17:38 Freq: Status: Active Protocol: Document 12/25/21 16:45 AW (Rec: 12/30/21 17:42 AW [id number]) Manual Assessments Joint Mobility Assessment Joint Mobility Assessment Left knee laxity and pain with valgus-directed force PT-OP-G Mobility & Gait Start: 12/23/21 17:38 Freq: Status: Active Protocol: Document 12/25/21 16:45 AW (Rec: 12/30/21 17:44 AW [id number]) OP Mobility Evaluation Transfers Sit to Stand Unable with max A x 2. Pt needs cues and manual facilitation for knee extension but is unable to fully extend. Cues needed for hand placement OP Gait Assessment Comments Gait Comments Unable to stand with max A x2. Unable to ambulate. Pt reports severe knee pain with any weightbearing. PT-OP-J Posture/Palpation/Skin Start: 12/23/21 17:38 Freq: Status: Active Protocol: Document 12/25/21 16:45 AW (Rec: 12/30/21 17:49 AW [id number]) Posture Evaluation Comments Posture Comments Pt sits with flexed trunk in a wheelchair at this encounter. Per pt and her sister, this mimics her posture in bed and in her recliner. She has enough trunk strength to sit edge of chair with fair control and able to withstand mild to moderate perturbations . PT-OP-M Strength Start: 12/23/21 17:38 Freq: Status: Active Protocol: Document 12/25/21 16:45 AW (Rec: 12/30/21 17:47 AW [id number]) Hip Strength Hip Manual Muscle Testing B Flexion (L2) 3+ Fair+ Abduction 3+ Fair+ Adduction 3+ Fair+ Knee Strength Knee Manual Muscle Testing B Flexion (S2) 3+ Fair+ Extension (L3) 3 Fair Ankle/Foot Strength Ankle and Foot Manual Muscle Testing B Dorsiflexion (L4) 3+ Fair+ Plantarflexion (S1) 3- Fair- Inversion 3+ Fair+ Eversion (S1) 3+ Fair+ PT-OP-Q Treatments Start: 12/23/21 17:38 Freq: Status: Active Protocol: Document 01/06/22 16:03 DCW (Rec: 01/06/22 16:42 DCW [id number]) Gym Equipment Therapeutic Ball 1 Exercise Details Hip Abduction/Adduction Ball Size/Color Red - 55 cm Lv 1 T-band Body Position Sitting Comments Foot on ball Therapeutic Exercises Sitting Exercises Elbow extension Sitting Exercise Name Elbow extension Side bilateral Resistance TB 1 ER/IR Sitting Exercise Name Seated hip ER/IR Side bilateral Resistance TB 1 Marching Sitting Exercise Name Marching Side bilateral Resistance 2# Leg press Sitting Exercise Name Leg press in w/c Side bilateral Resistance TB 2 Chest press Sitting Exercise Name Chest press Side bilateral Resistance PVC /c 2# Biceps Curls Sitting Exercise Name Curls Side bilateral Resistance TB 2 Rows Sitting Exercise Name Rows Side bilateral Resistance TB 2 resisted GH external rotation Sitting Exercise Name resisted GH ER/IR Side bilateral Resistance TB2 Comments HEP resisted hip abduction Sitting Exercise Name resisted hip abduction Side bilateral Resistance TB2 Comments HEP resisted DF Sitting Exercise Name resisted DF Side bilateral Resistance TB2 Comments HEP heel raise Sitting Exercise Name heel raise Side bilateral Resistance AROM Reps/Minutes x10 Comments HEP HS curl Sitting Exercise Name HS curl Side bilateral Resistance TB2 Reps/Minutes x10 with sister assisting Comments HEP LAQ Sitting Exercise Name LAQ Side bilateral Resistance 2# Reps/Minutes x10 Comments HEP PT-OP-T Assessment and Plan Start: 12/23/21 17:38 Freq: Status: Active Protocol: Document 01/06/22 16:03 DCW (Rec: 01/06/22 16:42 DCW [id number]) Physical Therapy Assessment Goals Three Impairment unable to transfer Retirement Goal (LTG) Pt will perform stand pivot transfer with FWW mod A x 1 LTG Duration 03/27/22 Two Impairment unable to stand Short Term Goal (STG) Pt will complete one rep sit to stand max A x 1 using FWW STG Duration 02/05/22 Final Assembly And Packing Supervisor Goal (LTG) Pt will stand using FWW mod A x 1 for 60 seconds LTG Duration 03/27/22 One Impairment LE weakness Final Assembly And Packing Supervisor Goal (LTG) Ankle and knee MMT improves to 4-/5 bilaterally. Hip MMT improves to 4/5 bilaterally. LTG Duration 03/27/22 Assessment Summary Assessment Pt's sister notes that she has been planning to go into help with Sabiha's HEP on off days from PT, but has not really started yet. Pt tolerated treatment fairly well, minimal need for rest breaks. Physical Therapy Plan Frequency and Duration Frequency of Treatment 2x/Week Duration of Treatment 3 months Plan of Care Start Date 12/25/21 Plan of Care End Date 03/27/22 Therapeutic Interventions Therapeutic Interventions Aquatic Therapy,Balance Training,Coordination Training ,Gait Training,Home Exercise Program,Manual Therapy, Neuromuscular Re-education, Patient/Caregiver Education, Self-Care/Home Management,Soft Tissue Mobilization, Therapeutic Activities, Therapeutic Exercises, Wheelchair Management Modalities Cold Pack/Ice Massage,Hot Packs Next Visit Focus/Plan Next Note Type Treatment Note Next Visit Plan LE strengthening in seated position. Progress UE strength . Initiate pre-standing progression - weightbearing.
--- NOTE | 2022-01-09 16:44 | PT.OTN ---
Current Diagnoses Multiple sclerosis (01/09/22) Personal history of (healed) traumatic fracture (01/09/22) Physical Therapy Treatment Note PT-OP-A Visit Information Start: 12/23/21 17:38 Freq: Status: Active Protocol: Document 01/09/22 16:00 DCW (Rec: 01/09/22 16:44 DCW [id number]) Out-Patient Physical Therapy Visit Information Visit Information Visit Type Treatment Note Visit Start Time 16:00 Visit Stop Time 16:45 Total Visit Minutes 45 Visit Number 4 Number of ESTIMATE CLERK Visits 0 Evaluation Information Evaluation Date 12/25/21 Precautions Precautions not ambulatory PT-OP-B Current Condition Start: 12/23/21 17:38 Freq: Status: Active Protocol: Document 12/25/21 16:45 AW (Rec: 12/25/21 17:16 AW [id number]) Current Condition History of Current Condition Onset Date multi-year history Current Complaints MS; bilateral knee pain; generalized weakness and impaired mobility History of Current Condition Sabiha lives at a local assisted living. She is confused and does not know why she is here. Her sister arrives longterm through this assessment and notes pt currently has a UTI which likely increases her confusion . Pt is mostly in bed during the day. She gets her meals in bed or in her recliner. Her chair puts her in a flexed position. Facility staff use a melissa lift to transfer her. Pt and her sister believe she was able to transfer with FWW and assist about a year ago. She has a supportive sister ( Shaina) and brother in law who live nearby. Sabiha receives total assist for ADL' s including dressing, bathing, and pt uses disposable briefs and gets changed in bed or in her recliner. Pandemic restrictions severely reduced her activity level. Prior Treatments and Tests Pt has worked with PT at this clinic over the years. At last discharge, she was able to complete sit to dip stand loader the parallel bars min A x 1. Treatment Goals Patient/Caregiver Goals Stand and transfer with a walker. Especially would like to be able to transfer in and out of a [employer] van to be able to go for a drive with family. Prior Functional Status Baseline Function- ADL's Needs Assist Baseline Function- Mobility Needs Assist Baseline Function- Gait Pt is not ambulatory. Baseline Function- Other Per prior PT notes, pt was able to sit<>stand using parallel bars min A x 1 ~9 months ago. Current Functional Impairments (Reported) Functional Limitations- Mobility/Gait Pt requires melissa lift for transfers. Unable to stand with max A x 2 Personal Factors Other Personal Factors That May Effect MS, cognitive impairment, and Therapy/Recovery chronicity of deficits will be barriers to rehab. Pt does have supportive family who can assist her to complete exercise at home. PT-OP-C Subjective Start: 12/23/21 17:38 Freq: Status: Active Protocol: Document 01/09/22 16:00 DCW (Rec: 01/09/22 16:44 DCW [id number]) OP-PT Subjective Patient Comments Patient Comments Pt's sister notes that pt was able to transfer into wheelchair today standing with walker, but notes that when this was attempted yesterday, her legs collapsed and they needed to use a standing lift. PT-OP-F Manual Assessment Start: 12/23/21 17:38 Freq: Status: Active Protocol: Document 12/25/21 16:45 AW (Rec: 12/30/21 17:42 AW [id number]) Manual Assessments Joint Mobility Assessment Joint Mobility Assessment Left knee laxity and pain with valgus-directed force PT-OP-G Mobility & Gait Start: 12/23/21 17:38 Freq: Status: Active Protocol: Document 12/25/21 16:45 AW (Rec: 12/30/21 17:44 AW [id number]) OP Mobility Evaluation Transfers Sit to Stand Unable with max A x 2. Pt needs cues and manual facilitation for knee extension but is unable to fully extend. Cues needed for hand placement OP Gait Assessment Comments Gait Comments Unable to stand with max A x2. Unable to ambulate. Pt reports severe knee pain with any weightbearing. PT-OP-J Posture/Palpation/Skin Start: 12/23/21 17:38 Freq: Status: Active Protocol: Document 12/25/21 16:45 AW (Rec: 12/30/21 17:49 AW [id number]) Posture Evaluation Comments Posture Comments Pt sits with flexed trunk in a wheelchair at this encounter. Per pt and her sister, this mimics her posture in bed and in her recliner. She has enough trunk strength to sit edge of chair with fair control and able to withstand mild to moderate perturbations . PT-OP-M Strength Start: 12/23/21 17:38 Freq: Status: Active Protocol: Document 12/25/21 16:45 AW (Rec: 12/30/21 17:47 AW [id number]) Hip Strength Hip Manual Muscle Testing B Flexion (L2) 3+ Fair+ Abduction 3+ Fair+ Adduction 3+ Fair+ Knee Strength Knee Manual Muscle Testing B Flexion (S2) 3+ Fair+ Extension (L3) 3 Fair Ankle/Foot Strength Ankle and Foot Manual Muscle Testing B Dorsiflexion (L4) 3+ Fair+ Plantarflexion (S1) 3- Fair- Inversion 3+ Fair+ Eversion (S1) 3+ Fair+ PT-OP-Q Treatments Start: 12/23/21 17:38 Freq: Status: Active Protocol: Document 01/09/22 16:00 DCW (Rec: 01/09/22 16:44 DCW [id number]) Cardio Equipment Upper Body Ergometer (UBE) Duration (Minutes) 5 RPM 60 Seat Position w/c Height 1.5 Gym Equipment Therapeutic Ball 1 Exercise Details Hip Abduction/Adduction Ball Size/Color Red - 55 cm Lv 1 T-band Body Position Sitting Comments Foot on ball Therapeutic Exercises Sitting Exercises Elbow extension Sitting Exercise Name Elbow extension Side bilateral Resistance TB 3 ER/IR Sitting Exercise Name Seated hip ER/IR Side bilateral Resistance TB 3 Marching Sitting Exercise Name Marching Side bilateral Resistance 2# Leg press Sitting Exercise Name Leg press in w/c Side bilateral Resistance TB 3 Chest press Sitting Exercise Name Chest press Side bilateral Resistance PVC /c 4# Biceps Curls Sitting Exercise Name Curls Side bilateral Resistance TB 3 Rows Sitting Exercise Name Rows Side bilateral Resistance TB 3 resisted hip abduction Sitting Exercise Name resisted hip abduction Side bilateral Resistance TB 3 Comments HEP resisted DF Sitting Exercise Name resisted DF Side bilateral Resistance TB3 Comments HEP HS curl Sitting Exercise Name HS curl Side bilateral Resistance TB3 Reps/Minutes x10 Comments HEP LAQ Sitting Exercise Name LAQ Side bilateral Resistance 2# Reps/Minutes x10 Comments HEP PT-OP-T Assessment and Plan Start: 12/23/21 17:38 Freq: Status: Active Protocol: Document 01/09/22 16:00 DCW (Rec: 01/09/22 16:44 DCW [id number]) Physical Therapy Assessment Goals Three Impairment unable to transfer Skilled Nursing Goal (LTG) Pt will perform stand pivot transfer with FWW mod A x 1 LTG Duration 03/27/22 Two Impairment unable to stand Short Term Goal (STG) Pt will complete one rep sit to stand max A x 1 using FWW STG Duration 02/05/22 Skilled Nursing Goal (LTG) Pt will stand using FWW mod A x 1 for 60 seconds LTG Duration 03/27/22 One Impairment LE weakness Treasurer Goal (LTG) Ankle and knee MMT improves to 4-/5 bilaterally. Hip MMT improves to 4/5 bilaterally. LTG Duration 03/27/22 Assessment Summary Assessment Pt's sister spent today's visit taking notes on all performed exercises so she can hopefully replicate on days that she is not in PT. Pt tolerated well, did not require rest breaks, appears to be more motivated than she has at prior courses of PT. Physical Therapy Plan Frequency and Duration Frequency of Treatment 2x/Week Duration of Treatment 3 months Plan of Care Start Date 12/25/21 Plan of Care End Date 03/27/22 Therapeutic Interventions Therapeutic Interventions Aquatic Therapy,Balance Training,Coordination Training ,Gait Training,Home Exercise Program,Manual Therapy, Neuromuscular Re-education, Patient/Caregiver Education, Self-Care/Home Management,Soft Tissue Mobilization, Therapeutic Activities, Therapeutic Exercises, Wheelchair Management Modalities Cold Pack/Ice Massage,Hot Packs Next Visit Focus/Plan Next Note Type Treatment Note Next Visit Plan LE strengthening in seated position. Progress UE strength . Initiate pre-standing progression - weightbearing.
--- NOTE | 2022-01-14 16:43 | PT.OTN ---
Current Diagnoses Multiple sclerosis (01/14/22) Personal history of (healed) traumatic fracture (01/14/22) Physical Therapy Treatment Note PT-OP-A Visit Information Start: 12/23/21 17:38 Freq: Status: Active Protocol: Document 01/14/22 16:00 DCW (Rec: 01/14/22 16:43 DCW [id number]) Out-Patient Physical Therapy Visit Information Visit Information Visit Type Treatment Note Visit Start Time 16:00 Visit Stop Time 16:45 Total Visit Minutes 45 Visit Number 5 Number of DIRECTOR OF MARKETING [employer] PERFORMANCE ADS Visits 0 Evaluation Information Evaluation Date 12/25/21 Precautions Precautions not ambulatory PT-OP-B Current Condition Start: 12/23/21 17:38 Freq: Status: Active Protocol: Document 12/25/21 16:45 AW (Rec: 12/25/21 17:16 AW [id number]) Current Condition History of Current Condition Onset Date multi-year history Current Complaints MS; bilateral knee pain; generalized weakness and impaired mobility History of Current Condition Sabiha lives at a local assisted living. She is confused and does not know why she is here. Her sister arrives [facility] through this assessment and notes pt currently has a UTI which likely increases her confusion . Pt is mostly in bed during the day. She gets her meals in bed or in her recliner. Her chair puts her in a flexed position. Facility staff use a melissa lift to transfer her. Pt and her sister believe she was able to transfer with FWW and assist about a year ago. She has a supportive sister ( Shaina) and brother in law who live nearby. Sabiha receives total assist for ADL' s including dressing, bathing, and pt uses disposable briefs and gets changed in bed or in her recliner. Pandemic restrictions severely reduced her activity level. Prior Treatments and Tests Pt has worked with PT at this clinic over the years. At last discharge, she was able to complete sit to servicing manager the parallel bars min A x 1. Treatment Goals Patient/Caregiver Goals Stand and transfer with a walker. Especially would like to be able to transfer in and out of a [employer] van to be able to go for a drive with family. Prior Functional Status Baseline Function- ADL's Needs Assist Baseline Function- Mobility Needs Assist Baseline Function- Gait Pt is not ambulatory. Baseline Function- Other Per prior PT notes, pt was able to sit<>stand using parallel bars min A x 1 ~9 months ago. Current Functional Impairments (Reported) Functional Limitations- Mobility/Gait Pt requires melissa lift for transfers. Unable to stand with max A x 2 Personal Factors Other Personal Factors That May Effect MS, cognitive impairment, and Therapy/Recovery chronicity of deficits will be barriers to rehab. Pt does have supportive family who can assist her to complete exercise at home. PT-OP-C Subjective Start: 12/23/21 17:38 Freq: Status: Active Protocol: Document 01/14/22 16:00 DCW (Rec: 01/14/22 16:43 DCW [id number]) OP-PT Subjective Patient Comments Patient Comments Pt and sister note that they took yesterday off from the HEP, but otherwise have been consistent with it. PT-OP-F Manual Assessment Start: 12/23/21 17:38 Freq: Status: Active Protocol: Document 12/25/21 16:45 AW (Rec: 12/30/21 17:42 AW [id number]) Manual Assessments Joint Mobility Assessment Joint Mobility Assessment Left knee laxity and pain with valgus-directed force PT-OP-G Mobility & Gait Start: 12/23/21 17:38 Freq: Status: Active Protocol: Document 12/25/21 16:45 AW (Rec: 12/30/21 17:44 AW [id number]) OP Mobility Evaluation Transfers Sit to Stand Unable with max A x 2. Pt needs cues and manual facilitation for knee extension but is unable to fully extend. Cues needed for hand placement OP Gait Assessment Comments Gait Comments Unable to stand with max A x2. Unable to ambulate. Pt reports severe knee pain with any weightbearing. PT-OP-J Posture/Palpation/Skin Start: 12/23/21 17:38 Freq: Status: Active Protocol: Document 12/25/21 16:45 AW (Rec: 12/30/21 17:49 AW [id number]) Posture Evaluation Comments Posture Comments Pt sits with flexed trunk in a wheelchair at this encounter. Per pt and her sister, this mimics her posture in bed and in her recliner. She has enough trunk strength to sit edge of chair with fair control and able to withstand mild to moderate perturbations . PT-OP-M Strength Start: 12/23/21 17:38 Freq: Status: Active Protocol: Document 12/25/21 16:45 AW (Rec: 12/30/21 17:47 AW [id number]) Hip Strength Hip Manual Muscle Testing B Flexion (L2) 3+ Fair+ Abduction 3+ Fair+ Adduction 3+ Fair+ Knee Strength Knee Manual Muscle Testing B Flexion (S2) 3+ Fair+ Extension (L3) 3 Fair Ankle/Foot Strength Ankle and Foot Manual Muscle Testing B Dorsiflexion (L4) 3+ Fair+ Plantarflexion (S1) 3- Fair- Inversion 3+ Fair+ Eversion (S1) 3+ Fair+ PT-OP-Q Treatments Start: 12/23/21 17:38 Freq: Status: Active Protocol: Document 01/14/22 16:00 DCW (Rec: 01/14/22 16:43 DCW [id number]) Cardio Equipment Upper Body Ergometer (UBE) Duration (Minutes) 6 RPM 60 Seat Position w/c Height 1.5 Gym Equipment Therapeutic Ball 1 Exercise Details Hip Abduction/Adduction Ball Size/Color Red - 55 cm Lv 1 T-band Body Position Sitting Comments Foot on ball Therapeutic Exercises Sitting Exercises Elbow extension Sitting Exercise Name Elbow extension Side bilateral Resistance TB 3 Marching Sitting Exercise Name Marching Side bilateral Resistance 5# Leg press Sitting Exercise Name Leg press in w/c Side bilateral Resistance TB 3 Chest press Sitting Exercise Name Chest press Side bilateral Resistance PVC /c 5# Biceps Curls Sitting Exercise Name Curls Side bilateral Resistance 5# Rows Sitting Exercise Name Rows Side bilateral Resistance TB 3 resisted GH external rotation Sitting Exercise Name resisted GH ER/IR Side bilateral Resistance TB 3 Comments HEP resisted hip abduction Sitting Exercise Name resisted hip abduction Side bilateral Resistance TB 3 Comments HEP resisted DF Sitting Exercise Name resisted DF Side bilateral Resistance TB3 Comments HEP heel raise Sitting Exercise Name heel raise Side bilateral Resistance AROM Reps/Minutes x10 Comments HEP HS curl Sitting Exercise Name HS curl Side bilateral Resistance TB3 Reps/Minutes x10 Comments HEP LAQ Sitting Exercise Name LAQ Side bilateral Resistance 5# Reps/Minutes x10 Comments HEP Therapeutic Activity Therapeutic Activity sit<->stand Name Sit<->stand at // bars Comments Mod Ax1 PT-OP-T Assessment and Plan Start: 12/23/21 17:38 Freq: Status: Active Protocol: Document 01/14/22 16:00 DCW (Rec: 01/14/22 16:43 DCW [id number]) Physical Therapy Assessment Goals Three Impairment unable to transfer Die Maker Goal (LTG) Pt will perform stand pivot transfer with FWW mod A x 1 LTG Duration 03/27/22 Two Impairment unable to stand Short Term Goal (STG) Pt will complete one rep sit to stand max A x 1 using FWW STG Duration 02/05/22 Die Maker Goal (LTG) Pt will stand using FWW mod A x 1 for 60 seconds LTG Duration 03/27/22 One Impairment LE weakness Die Maker Goal (LTG) Ankle and knee MMT improves to 4-/5 bilaterally. Hip MMT improves to 4/5 bilaterally. LTG Duration 03/27/22 Assessment Summary Assessment Pt did well today, able to perform sit<->stand transfers, required 30-40% assistance, unable to remain standing for any length of time, but still an improvement for her mobility. Doing well with HEP recently. Physical Therapy Plan Frequency and Duration Frequency of Treatment 2x/Week Duration of Treatment 3 months Plan of Care Start Date 12/25/21 Plan of Care End Date 03/27/22 Therapeutic Interventions Therapeutic Interventions Aquatic Therapy,Balance Training,Coordination Training ,Gait Training,Home Exercise Program,Manual Therapy, Neuromuscular Re-education, Patient/Caregiver Education, Self-Care/Home Management,Soft Tissue Mobilization, Therapeutic Activities, Therapeutic Exercises, Wheelchair Management Modalities Cold Pack/Ice Massage,Hot Packs Next Visit Focus/Plan Next Note Type Treatment Note Next Visit Plan LE strengthening in seated position. Progress UE strength . Initiate pre-standing progression - weightbearing.
--- NOTE | 2022-01-16 15:58 | PT.OTN ---
Current Diagnoses Multiple sclerosis (01/16/22) Personal history of (healed) traumatic fracture (01/16/22) Physical Therapy Treatment Note PT-OP-A Visit Information Start: 12/23/21 17:38 Freq: Status: Active Protocol: Document 01/16/22 15:15 DCW (Rec: 01/16/22 15:58 DCW [id number]) Out-Patient Physical Therapy Visit Information Visit Information Visit Type Treatment Note Visit Start Time 15:15 Visit Stop Time 16:00 Total Visit Minutes 45 Visit Number 6 Number of ANIMAL TREATMENT INVESTIGATOR Visits 0 Evaluation Information Evaluation Date 12/25/21 Precautions Precautions not ambulatory PT-OP-B Current Condition Start: 12/23/21 17:38 Freq: Status: Active Protocol: Document 12/25/21 16:45 AW (Rec: 12/25/21 17:16 AW [id number]) Current Condition History of Current Condition Onset Date multi-year history Current Complaints MS; bilateral knee pain; generalized weakness and impaired mobility History of Current Condition Sabiha lives at a local assisted living. She is confused and does not know why she is here. Her sister arrives half-way through this assessment and notes pt currently has a UTI which likely increases her confusion . Pt is mostly in bed during the day. She gets her meals in bed or in her recliner. Her chair puts her in a flexed position. Facility staff use a melissa lift to transfer her. Pt and her sister believe she was able to transfer with FWW and assist about a year ago. She has a supportive sister ( Shaina) and brother in law who live nearby. Sabiha receives total assist for ADL' s including dressing, bathing, and pt uses disposable briefs and gets changed in bed or in her recliner. Pandemic restrictions severely reduced her activity level. Prior Treatments and Tests Pt has worked with PT at this clinic over the years. At last discharge, she was able to complete sit to fingernail former the parallel bars min A x 1. Treatment Goals Patient/Caregiver Goals Stand and transfer with a walker. Especially would like to be able to transfer in and out of a [employer] van to be able to go for a drive with family. Prior Functional Status Baseline Function- ADL's Needs Assist Baseline Function- Mobility Needs Assist Baseline Function- Gait Pt is not ambulatory. Baseline Function- Other Per prior PT notes, pt was able to sit<>stand using parallel bars min A x 1 ~9 months ago. Current Functional Impairments (Reported) Functional Limitations- Mobility/Gait Pt requires melissa lift for transfers. Unable to stand with max A x 2 Personal Factors Other Personal Factors That May Effect MS, cognitive impairment, and Therapy/Recovery chronicity of deficits will be barriers to rehab. Pt does have supportive family who can assist her to complete exercise at home. PT-OP-C Subjective Start: 12/23/21 17:38 Freq: Status: Active Protocol: Document 01/16/22 15:15 DCW (Rec: 01/16/22 15:58 DCW [id number]) OP-PT Subjective Patient Comments Patient Comments Pt reports she is doing alright today. PT-OP-F Manual Assessment Start: 12/23/21 17:38 Freq: Status: Active Protocol: Document 12/25/21 16:45 AW (Rec: 12/30/21 17:42 AW [id number]) Manual Assessments Joint Mobility Assessment Joint Mobility Assessment Left knee laxity and pain with valgus-directed force PT-OP-G Mobility & Gait Start: 12/23/21 17:38 Freq: Status: Active Protocol: Document 12/25/21 16:45 AW (Rec: 12/30/21 17:44 AW [id number]) OP Mobility Evaluation Transfers Sit to Stand Unable with max A x 2. Pt needs cues and manual facilitation for knee extension but is unable to fully extend. Cues needed for hand placement OP Gait Assessment Comments Gait Comments Unable to stand with max A x2. Unable to ambulate. Pt reports severe knee pain with any weightbearing. PT-OP-J Posture/Palpation/Skin Start: 12/23/21 17:38 Freq: Status: Active Protocol: Document 12/25/21 16:45 AW (Rec: 12/30/21 17:49 AW [id number]) Posture Evaluation Comments Posture Comments Pt sits with flexed trunk in a wheelchair at this encounter. Per pt and her sister, this mimics her posture in bed and in her recliner. She has enough trunk strength to sit edge of chair with fair control and able to withstand mild to moderate perturbations . PT-OP-M Strength Start: 12/23/21 17:38 Freq: Status: Active Protocol: Document 12/25/21 16:45 AW (Rec: 12/30/21 17:47 AW [id number]) Hip Strength Hip Manual Muscle Testing B Flexion (L2) 3+ Fair+ Abduction 3+ Fair+ Adduction 3+ Fair+ Knee Strength Knee Manual Muscle Testing B Flexion (S2) 3+ Fair+ Extension (L3) 3 Fair Ankle/Foot Strength Ankle and Foot Manual Muscle Testing B Dorsiflexion (L4) 3+ Fair+ Plantarflexion (S1) 3- Fair- Inversion 3+ Fair+ Eversion (S1) 3+ Fair+ PT-OP-Q Treatments Start: 12/23/21 17:38 Freq: Status: Active Protocol: Document 01/16/22 15:15 DCW (Rec: 01/16/22 15:58 DCW [id number]) Cardio Equipment Upper Body Ergometer (UBE) Duration (Minutes) 6 RPM 60 Seat Position w/c Height 2 Gym Equipment Therapeutic Ball 1 Exercise Details Hip Abduction/Adduction Ball Size/Color Red - 55 cm Lv 3 T-band Body Position Sitting Comments Foot on ball Therapeutic Exercises Sitting Exercises Balloon Volley Sitting Exercise Name Balloon Volley Side bilateral Resistance 2# weights on wrists Elbow extension Sitting Exercise Name Elbow extension Side bilateral Resistance TB 3 Marching Sitting Exercise Name Marching Side bilateral Resistance 5# Leg press Sitting Exercise Name Leg press in w/c Side bilateral Resistance TB 3 Chest press Sitting Exercise Name Chest press Side bilateral Resistance PVC /c 5# Biceps Curls Sitting Exercise Name Curls Side bilateral Resistance 5# Rows Sitting Exercise Name Rows Side bilateral Resistance TB 3 resisted hip abduction Sitting Exercise Name resisted hip abduction Side bilateral Resistance TB 3 Comments HEP resisted DF Sitting Exercise Name resisted DF Side bilateral Resistance TB3 Comments HEP heel raise Sitting Exercise Name heel raise Side bilateral Resistance AROM Reps/Minutes x10 Comments HEP HS curl Sitting Exercise Name HS curl Side bilateral Resistance TB3 Reps/Minutes x10 Comments HEP LAQ Sitting Exercise Name LAQ Side bilateral Resistance 5# Reps/Minutes x10 Comments HEP Therapeutic Activity Therapeutic Activity sit<->stand Name Sit<->stand at // bars Comments Mod Ax1 PT-OP-T Assessment and Plan Start: 12/23/21 17:38 Freq: Status: Active Protocol: Document 01/16/22 15:15 DCW (Rec: 01/16/22 15:58 DCW [id number]) Physical Therapy Assessment Goals Three Impairment unable to transfer Breaker Table Worker Goal (LTG) Pt will perform stand pivot transfer with FWW mod A x 1 LTG Duration 03/27/22 Two Impairment unable to stand Short Term Goal (STG) Pt will complete one rep sit to stand max A x 1 using FWW STG Duration 02/05/22 Breaker Table Worker Goal (LTG) Pt will stand using FWW mod A x 1 for 60 seconds LTG Duration 03/27/22 One Impairment LE weakness Breaker Table Worker Goal (LTG) Ankle and knee MMT improves to 4-/5 bilaterally. Hip MMT improves to 4/5 bilaterally. LTG Duration 03/27/22 Assessment Summary Assessment Worked more today on sit<-> stand, required slightly more assistance from therapist, responded well to VCs for pushing through LEs. Physical Therapy Plan Frequency and Duration Frequency of Treatment 2x/Week Duration of Treatment 3 months Plan of Care Start Date 12/25/21 Plan of Care End Date 03/27/22 Therapeutic Interventions Therapeutic Interventions Aquatic Therapy,Balance Training,Coordination Training ,Gait Training,Home Exercise Program,Manual Therapy, Neuromuscular Re-education, Patient/Caregiver Education, Self-Care/Home Management,Soft Tissue Mobilization, Therapeutic Activities, Therapeutic Exercises, Wheelchair Management Modalities Cold Pack/Ice Massage,Hot Packs Next Visit Focus/Plan Next Note Type Treatment Note Next Visit Plan LE strengthening in seated position. Progress UE strength . Initiate pre-standing progression - weightbearing.
--- NOTE | 2022-01-20 16:54 | PT.OTN ---
Current Diagnoses Multiple sclerosis (01/20/22) Personal history of (healed) traumatic fracture (01/20/22) Physical Therapy Treatment Note PT-OP-A Visit Information Start: 12/23/21 17:38 Freq: Status: Active Protocol: Document 01/20/22 16:08 DCW (Rec: 01/20/22 16:54 DCW [id number]) Out-Patient Physical Therapy Visit Information Visit Information Visit Type Treatment Note Visit Start Time 16:08 Visit Stop Time 16:50 Total Visit Minutes 42 Visit Number 7 Number of DEVELOPER PROVER UPHOLSTERING Visits 0 Evaluation Information Evaluation Date 12/25/21 Precautions Precautions not ambulatory PT-OP-B Current Condition Start: 12/23/21 17:38 Freq: Status: Active Protocol: Document 12/25/21 16:45 AW (Rec: 12/25/21 17:16 AW [id number]) Current Condition History of Current Condition Onset Date multi-year history Current Complaints MS; bilateral knee pain; generalized weakness and impaired mobility History of Current Condition Sabiha lives at a local assisted living. She is confused and does not know why she is here. Her sister arrives care home through this assessment and notes pt currently has a UTI which likely increases her confusion . Pt is mostly in bed during the day. She gets her meals in bed or in her recliner. Her chair puts her in a flexed position. Facility staff use a melissa lift to transfer her. Pt and her sister believe she was able to transfer with FWW and assist about a year ago. She has a supportive sister ( Shaina) and brother in law who live nearby. Sabiha receives total assist for ADL' s including dressing, bathing, and pt uses disposable briefs and gets changed in bed or in her recliner. Pandemic restrictions severely reduced her activity level. Prior Treatments and Tests Pt has worked with PT at this clinic over the years. At last discharge, she was able to complete sit to manager of maintenance the parallel bars min A x 1. Treatment Goals Patient/Caregiver Goals Stand and transfer with a walker. Especially would like to be able to transfer in and out of a [employer] van to be able to go for a drive with family. Prior Functional Status Baseline Function- ADL's Needs Assist Baseline Function- Mobility Needs Assist Baseline Function- Gait Pt is not ambulatory. Baseline Function- Other Per prior PT notes, pt was able to sit<>stand using parallel bars min A x 1 ~9 months ago. Current Functional Impairments (Reported) Functional Limitations- Mobility/Gait Pt requires melissa lift for transfers. Unable to stand with max A x 2 Personal Factors Other Personal Factors That May Effect MS, cognitive impairment, and Therapy/Recovery chronicity of deficits will be barriers to rehab. Pt does have supportive family who can assist her to complete exercise at home. PT-OP-C Subjective Start: 12/23/21 17:38 Freq: Status: Active Protocol: Document 01/20/22 16:08 DCW (Rec: 01/20/22 16:54 DCW [id number]) OP-PT Subjective Patient Comments Patient Comments PT notes she's doing well, hasn't been too bothered by the heat today. PT-OP-F Manual Assessment Start: 12/23/21 17:38 Freq: Status: Active Protocol: Document 12/25/21 16:45 AW (Rec: 12/30/21 17:42 AW [id number]) Manual Assessments Joint Mobility Assessment Joint Mobility Assessment Left knee laxity and pain with valgus-directed force PT-OP-G Mobility & Gait Start: 12/23/21 17:38 Freq: Status: Active Protocol: Document 12/25/21 16:45 AW (Rec: 12/30/21 17:44 AW [id number]) OP Mobility Evaluation Transfers Sit to Stand Unable with max A x 2. Pt needs cues and manual facilitation for knee extension but is unable to fully extend. Cues needed for hand placement OP Gait Assessment Comments Gait Comments Unable to stand with max A x2. Unable to ambulate. Pt reports severe knee pain with any weightbearing. PT-OP-J Posture/Palpation/Skin Start: 12/23/21 17:38 Freq: Status: Active Protocol: Document 12/25/21 16:45 AW (Rec: 12/30/21 17:49 AW [id number]) Posture Evaluation Comments Posture Comments Pt sits with flexed trunk in a wheelchair at this encounter. Per pt and her sister, this mimics her posture in bed and in her recliner. She has enough trunk strength to sit edge of chair with fair control and able to withstand mild to moderate perturbations . PT-OP-M Strength Start: 12/23/21 17:38 Freq: Status: Active Protocol: Document 12/25/21 16:45 AW (Rec: 12/30/21 17:47 AW [id number]) Hip Strength Hip Manual Muscle Testing B Flexion (L2) 3+ Fair+ Abduction 3+ Fair+ Adduction 3+ Fair+ Knee Strength Knee Manual Muscle Testing B Flexion (S2) 3+ Fair+ Extension (L3) 3 Fair Ankle/Foot Strength Ankle and Foot Manual Muscle Testing B Dorsiflexion (L4) 3+ Fair+ Plantarflexion (S1) 3- Fair- Inversion 3+ Fair+ Eversion (S1) 3+ Fair+ PT-OP-Q Treatments Start: 12/23/21 17:38 Freq: Status: Active Protocol: Document 01/20/22 16:08 DCW (Rec: 01/20/22 16:54 DCW [id number]) Cardio Equipment Upper Body Ergometer (UBE) Duration (Minutes) 6 RPM 60 Seat Position w/c Height 2.5 Therapeutic Exercises Sitting Exercises Balloon Volley Sitting Exercise Name Balloon Volley Side bilateral Resistance 2# weights on wrists Elbow extension Sitting Exercise Name Elbow extension Side bilateral Resistance TB 3 Marching Sitting Exercise Name Marching Side bilateral Resistance 5# Leg press Sitting Exercise Name Leg press in w/c Side bilateral Resistance TB 3 Chest press Sitting Exercise Name Chest press Side bilateral Resistance PVC /c 5# Biceps Curls Sitting Exercise Name Curls Side bilateral Resistance 5# Rows Sitting Exercise Name Rows Side bilateral Resistance TB 3 resisted hip abduction Sitting Exercise Name resisted hip abduction Side bilateral Resistance TB 3 Comments HEP resisted DF Sitting Exercise Name resisted DF Side bilateral Resistance TB3 Comments HEP heel raise Sitting Exercise Name heel raise Side bilateral Resistance AROM Reps/Minutes x10 Comments HEP HS curl Sitting Exercise Name HS curl Side bilateral Resistance TB3 Reps/Minutes x10 Comments HEP LAQ Sitting Exercise Name LAQ Side bilateral Resistance 5# Reps/Minutes x10 Comments HEP Therapeutic Activity Therapeutic Activity sit<->stand Name Sit<->stand at // bars Comments Mod Ax1 PT-OP-T Assessment and Plan Start: 12/23/21 17:38 Freq: Status: Active Protocol: Document 01/20/22 16:08 DCW (Rec: 01/20/22 16:54 DCW [id number]) Physical Therapy Assessment Goals Three Impairment unable to transfer Skilled Nursing Goal (LTG) Pt will perform stand pivot transfer with FWW mod A x 1 LTG Duration 03/27/22 Two Impairment unable to stand Short Term Goal (STG) Pt will complete one rep sit to stand max A x 1 using FWW STG Duration 02/05/22 Construction Coordinator Goal (LTG) Pt will stand using FWW mod A x 1 for 60 seconds LTG Duration 03/27/22 One Impairment LE weakness Skilled Nursing Goal (LTG) Ankle and knee MMT improves to 4-/5 bilaterally. Hip MMT improves to 4/5 bilaterally. LTG Duration 03/27/22 Assessment Summary Assessment Transfers continue to improve, pt showing increased strength with hip extension, will try to work more toward car transfers as pt tolerates. Physical Therapy Plan Frequency and Duration Frequency of Treatment 2x/Week Duration of Treatment 3 months Plan of Care Start Date 12/25/21 Plan of Care End Date 03/27/22 Therapeutic Interventions Therapeutic Interventions Aquatic Therapy,Balance Training,Coordination Training ,Gait Training,Home Exercise Program,Manual Therapy, Neuromuscular Re-education, Patient/Caregiver Education, Self-Care/Home Management,Soft Tissue Mobilization, Therapeutic Activities, Therapeutic Exercises, Wheelchair Management Modalities Cold Pack/Ice Massage,Hot Packs Next Visit Focus/Plan Next Note Type Treatment Note Next Visit Plan LE strengthening in seated position. Progress UE strength . Initiate pre-standing progression - weightbearing.
--- NOTE | 2022-01-23 16:50 | PT.OTN ---
Current Diagnoses Multiple sclerosis (01/23/22) Personal history of (healed) traumatic fracture (01/23/22) Physical Therapy Treatment Note PT-OP-A Visit Information Start: 12/23/21 17:38 Freq: Status: Active Protocol: Document 01/23/22 16:05 DCW (Rec: 01/23/22 16:50 DCW [id number]) Out-Patient Physical Therapy Visit Information Visit Information Visit Type Treatment Note Visit Start Time 16:05 Visit Stop Time 16:45 Total Visit Minutes 40 Visit Number 8 Number of ENVIRONMENTAL FIELD TECHNICIAN Visits 0 Evaluation Information Evaluation Date 12/25/21 Precautions Precautions not ambulatory PT-OP-B Current Condition Start: 12/23/21 17:38 Freq: Status: Active Protocol: Document 12/25/21 16:45 AW (Rec: 12/25/21 17:16 AW [id number]) Current Condition History of Current Condition Onset Date multi-year history Current Complaints MS; bilateral knee pain; generalized weakness and impaired mobility History of Current Condition Sabiha lives at a local assisted living. She is confused and does not know why she is here. Her sister arrives correction through this assessment and notes pt currently has a UTI which likely increases her confusion . Pt is mostly in bed during the day. She gets her meals in bed or in her recliner. Her chair puts her in a flexed position. Facility staff use a melissa lift to transfer her. Pt and her sister believe she was able to transfer with FWW and assist about a year ago. She has a supportive sister ( Shaina) and brother in law who live nearby. Sabiha receives total assist for ADL' s including dressing, bathing, and pt uses disposable briefs and gets changed in bed or in her recliner. Pandemic restrictions severely reduced her activity level. Prior Treatments and Tests Pt has worked with PT at this clinic over the years. At last discharge, she was able to complete sit to manufacturing maintenance mechanic the parallel bars min A x 1. Treatment Goals Patient/Caregiver Goals Stand and transfer with a walker. Especially would like to be able to transfer in and out of a [employer] van to be able to go for a drive with family. Prior Functional Status Baseline Function- ADL's Needs Assist Baseline Function- Mobility Needs Assist Baseline Function- Gait Pt is not ambulatory. Baseline Function- Other Per prior PT notes, pt was able to sit<>stand using parallel bars min A x 1 ~9 months ago. Current Functional Impairments (Reported) Functional Limitations- Mobility/Gait Pt requires melissa lift for transfers. Unable to stand with max A x 2 Personal Factors Other Personal Factors That May Effect MS, cognitive impairment, and Therapy/Recovery chronicity of deficits will be barriers to rehab. Pt does have supportive family who can assist her to complete exercise at home. PT-OP-C Subjective Start: 12/23/21 17:38 Freq: Status: Active Protocol: Document 01/23/22 16:05 DCW (Rec: 01/23/22 16:50 DCW [id number]) OP-PT Subjective Patient Comments Patient Comments Pt reports she is feeling alright today. PT-OP-F Manual Assessment Start: 12/23/21 17:38 Freq: Status: Active Protocol: Document 12/25/21 16:45 AW (Rec: 12/30/21 17:42 AW [id number]) Manual Assessments Joint Mobility Assessment Joint Mobility Assessment Left knee laxity and pain with valgus-directed force PT-OP-G Mobility & Gait Start: 12/23/21 17:38 Freq: Status: Active Protocol: Document 12/25/21 16:45 AW (Rec: 12/30/21 17:44 AW [id number]) OP Mobility Evaluation Transfers Sit to Stand Unable with max A x 2. Pt needs cues and manual facilitation for knee extension but is unable to fully extend. Cues needed for hand placement OP Gait Assessment Comments Gait Comments Unable to stand with max A x2. Unable to ambulate. Pt reports severe knee pain with any weightbearing. PT-OP-J Posture/Palpation/Skin Start: 12/23/21 17:38 Freq: Status: Active Protocol: Document 12/25/21 16:45 AW (Rec: 12/30/21 17:49 AW [id number]) Posture Evaluation Comments Posture Comments Pt sits with flexed trunk in a wheelchair at this encounter. Per pt and her sister, this mimics her posture in bed and in her recliner. She has enough trunk strength to sit edge of chair with fair control and able to withstand mild to moderate perturbations . PT-OP-M Strength Start: 12/23/21 17:38 Freq: Status: Active Protocol: Document 12/25/21 16:45 AW (Rec: 12/30/21 17:47 AW [id number]) Hip Strength Hip Manual Muscle Testing B Flexion (L2) 3+ Fair+ Abduction 3+ Fair+ Adduction 3+ Fair+ Knee Strength Knee Manual Muscle Testing B Flexion (S2) 3+ Fair+ Extension (L3) 3 Fair Ankle/Foot Strength Ankle and Foot Manual Muscle Testing B Dorsiflexion (L4) 3+ Fair+ Plantarflexion (S1) 3- Fair- Inversion 3+ Fair+ Eversion (S1) 3+ Fair+ PT-OP-Q Treatments Start: 12/23/21 17:38 Freq: Status: Active Protocol: Document 01/23/22 16:05 DCW (Rec: 01/23/22 16:50 DCW [id number]) Cardio Equipment Upper Body Ergometer (UBE) Duration (Minutes) 6 RPM 60 Seat Position w/c Height 2.5 Therapeutic Exercises Sitting Exercises Seated Crunches Sitting Exercise Name Forward crunch against resistance Resistance Lv 3 Equipment Used T-band Balloon Volley Sitting Exercise Name Balloon Volley Side bilateral Resistance 4# weights on wrists Elbow extension Sitting Exercise Name Elbow extension Side bilateral Resistance TB 3 Marching Sitting Exercise Name Marching Side bilateral Resistance 5# Leg press Sitting Exercise Name Leg press in w/c Side bilateral Resistance TB 3 Chest press Sitting Exercise Name Chest press Side bilateral Resistance PVC /c 5# Biceps Curls Sitting Exercise Name Curls Side bilateral Resistance 5# Rows Sitting Exercise Name Rows Side bilateral Resistance TB 3 resisted GH external rotation Sitting Exercise Name resisted GH ER/IR Side bilateral Resistance TB 3 Comments HEP resisted hip abduction Sitting Exercise Name resisted hip abduction Side bilateral Resistance TB 3 Comments HEP resisted DF Sitting Exercise Name resisted DF Side bilateral Resistance TB3 Comments HEP heel raise Sitting Exercise Name heel raise Side bilateral Resistance AROM Reps/Minutes x10 Comments HEP HS curl Sitting Exercise Name HS curl Side bilateral Resistance TB3 Reps/Minutes x10 Comments HEP LAQ Sitting Exercise Name LAQ Side bilateral Resistance 5# Reps/Minutes x10 Comments HEP Therapeutic Activity Therapeutic Activity sit<->stand Name Sit<->stand at // bars Comments Mod Ax1 PT-OP-T Assessment and Plan Start: 12/23/21 17:38 Freq: Status: Active Protocol: Document 01/23/22 16:05 DCW (Rec: 01/23/22 16:50 DCW [id number]) Physical Therapy Assessment Goals Three Impairment unable to transfer Shelter Goal (LTG) Pt will perform stand pivot transfer with FWW mod A x 1 LTG Duration 03/27/22 Two Impairment unable to stand Short Term Goal (STG) Pt will complete one rep sit to stand max A x 1 using FWW STG Duration 02/05/22 Shelter Goal (LTG) Pt will stand using FWW mod A x 1 for 60 seconds LTG Duration 03/27/22 One Impairment LE weakness Shelter Goal (LTG) Ankle and knee MMT improves to 4-/5 bilaterally. Hip MMT improves to 4/5 bilaterally. LTG Duration 03/27/22 Assessment Summary Assessment Pt required the least amount of assistance with her standing today, hopeful to work toward stand-pivot transfers using FWW in order to get onto the leg press. Physical Therapy Plan Frequency and Duration Frequency of Treatment 2x/Week Duration of Treatment 3 months Plan of Care Start Date 12/25/21 Plan of Care End Date 03/27/22 Therapeutic Interventions Therapeutic Interventions Aquatic Therapy,Balance Training,Coordination Training ,Gait Training,Home Exercise Program,Manual Therapy, Neuromuscular Re-education, Patient/Caregiver Education, Self-Care/Home Management,Soft Tissue Mobilization, Therapeutic Activities, Therapeutic Exercises, Wheelchair Management Modalities Cold Pack/Ice Massage,Hot Packs Next Visit Focus/Plan Next Note Type Treatment Note Next Visit Plan LE strengthening in seated position. Progress UE strength . Initiate pre-standing progression - weightbearing.
--- NOTE | 2022-01-29 15:59 | PT.OTN ---
Current Diagnoses Multiple sclerosis (01/29/22) Personal history of (healed) traumatic fracture (01/29/22) Physical Therapy Treatment Note PT-OP-A Visit Information Start: 12/23/21 17:38 Freq: Status: Active Protocol: Document 01/29/22 15:16 AW (Rec: 01/29/22 15:59 AW [id number]) Out-Patient Physical Therapy Visit Information Visit Information Visit Type Treatment Note Visit Start Time 15:16 Visit Stop Time 15:59 Total Visit Minutes 43 Visit Number 9 Number of PERSONAL BANKER Visits 0 Evaluation Information Evaluation Date 12/25/21 Precautions Precautions not ambulatory PT-OP-B Current Condition Start: 12/23/21 17:38 Freq: Status: Active Protocol: Document 12/25/21 16:45 AW (Rec: 12/25/21 17:16 AW [id number]) Current Condition History of Current Condition Onset Date multi-year history Current Complaints MS; bilateral knee pain; generalized weakness and impaired mobility History of Current Condition Sabiha lives at a local assisted living. She is confused and does not know why she is here. Her sister arrives mcc through this assessment and notes pt currently has a UTI which likely increases her confusion . Pt is mostly in bed during the day. She gets her meals in bed or in her recliner. Her chair puts her in a flexed position. Facility staff use a melissa lift to transfer her. Pt and her sister believe she was able to transfer with FWW and assist about a year ago. She has a supportive sister ( Shaina) and brother in law who live nearby. Sabiha receives total assist for ADL' s including dressing, bathing, and pt uses disposable briefs and gets changed in bed or in her recliner. Pandemic restrictions severely reduced her activity level. Prior Treatments and Tests Pt has worked with PT at this clinic over the years. At last discharge, she was able to complete sit to housing quality standard inspector the parallel bars min A x 1. Treatment Goals Patient/Caregiver Goals Stand and transfer with a walker. Especially would like to be able to transfer in and out of a [employer] van to be able to go for a drive with family. Prior Functional Status Baseline Function- ADL's Needs Assist Baseline Function- Mobility Needs Assist Baseline Function- Gait Pt is not ambulatory. Baseline Function- Other Per prior PT notes, pt was able to sit<>stand using parallel bars min A x 1 ~9 months ago. Current Functional Impairments (Reported) Functional Limitations- Mobility/Gait Pt requires melissa lift for transfers. Unable to stand with max A x 2 Personal Factors Other Personal Factors That May Effect MS, cognitive impairment, and Therapy/Recovery chronicity of deficits will be barriers to rehab. Pt does have supportive family who can assist her to complete exercise at home. PT-OP-C Subjective Start: 12/23/21 17:38 Freq: Status: Active Protocol: Document 01/29/22 15:16 AW (Rec: 01/29/22 15:59 AW [id number]) OP-PT Subjective Patient Comments Patient Comments I'm pretty good I guess. They couldn't find my seat cushion so I'm sitting lower today. PT-OP-F Manual Assessment Start: 12/23/21 17:38 Freq: Status: Active Protocol: Document 12/25/21 16:45 AW (Rec: 12/30/21 17:42 AW [id number]) Manual Assessments Joint Mobility Assessment Joint Mobility Assessment Left knee laxity and pain with valgus-directed force PT-OP-G Mobility & Gait Start: 12/23/21 17:38 Freq: Status: Active Protocol: Document 12/25/21 16:45 AW (Rec: 12/30/21 17:44 AW [id number]) OP Mobility Evaluation Transfers Sit to Stand Unable with max A x 2. Pt needs cues and manual facilitation for knee extension but is unable to fully extend. Cues needed for hand placement OP Gait Assessment Comments Gait Comments Unable to stand with max A x2. Unable to ambulate. Pt reports severe knee pain with any weightbearing. PT-OP-J Posture/Palpation/Skin Start: 12/23/21 17:38 Freq: Status: Active Protocol: Document 12/25/21 16:45 AW (Rec: 12/30/21 17:49 AW [id number]) Posture Evaluation Comments Posture Comments Pt sits with flexed trunk in a wheelchair at this encounter. Per pt and her sister, this mimics her posture in bed and in her recliner. She has enough trunk strength to sit edge of chair with fair control and able to withstand mild to moderate perturbations . PT-OP-M Strength Start: 12/23/21 17:38 Freq: Status: Active Protocol: Document 12/25/21 16:45 AW (Rec: 12/30/21 17:47 AW [id number]) Hip Strength Hip Manual Muscle Testing B Flexion (L2) 3+ Fair+ Abduction 3+ Fair+ Adduction 3+ Fair+ Knee Strength Knee Manual Muscle Testing B Flexion (S2) 3+ Fair+ Extension (L3) 3 Fair Ankle/Foot Strength Ankle and Foot Manual Muscle Testing B Dorsiflexion (L4) 3+ Fair+ Plantarflexion (S1) 3- Fair- Inversion 3+ Fair+ Eversion (S1) 3+ Fair+ PT-OP-Q Treatments Start: 12/23/21 17:38 Freq: Status: Active Protocol: Document 01/29/22 15:16 AW (Rec: 01/29/22 15:59 AW [id number]) Cardio Equipment Upper Body Ergometer (UBE) Duration (Minutes) 6 RPM 60 Seat Position w/c Height 2.5 Therapeutic Exercises Sitting Exercises Marching Sitting Exercise Name Marching Side bilateral Resistance 5# Leg press Sitting Exercise Name Leg press in w/c Side bilateral Resistance TB 3 Chest press Sitting Exercise Name Chest press Side bilateral Resistance PVC /c 5# Biceps Curls Sitting Exercise Name Curls Side bilateral Resistance 5# resisted GH external rotation Sitting Exercise Name resisted GH ER/IR Side bilateral Resistance TB 3 Comments HEP resisted hip abduction Sitting Exercise Name resisted hip abduction Side bilateral Resistance TB 3 Comments HEP resisted DF Sitting Exercise Name resisted DF Side bilateral Resistance TB3 Comments HEP heel raise Sitting Exercise Name heel raise Side bilateral Resistance AROM Reps/Minutes x10 Comments HEP HS curl Sitting Exercise Name HS curl Side bilateral Resistance TB3 Reps/Minutes x10 Comments HEP LAQ Sitting Exercise Name LAQ Side bilateral Resistance 5# Reps/Minutes x10 Comments HEP PT-OP-T Assessment and Plan Start: 12/23/21 17:38 Freq: Status: Active Protocol: Document 01/29/22 15:16 AW (Rec: 01/29/22 15:59 AW [id number]) Physical Therapy Assessment Goals Three Impairment unable to transfer Detention Goal (LTG) Pt will perform stand pivot transfer with FWW mod A x 1 LTG Duration 03/27/22 Two Impairment unable to stand Short Term Goal (STG) Pt will complete one rep sit to stand max A x 1 using FWW STG Duration 02/05/22 Ultimate Hoops Referee Goal (LTG) Pt will stand using FWW mod A x 1 for 60 seconds LTG Duration 03/27/22 One Impairment LE weakness Ultimate Hoops Referee Goal (LTG) Ankle and knee MMT improves to 4-/5 bilaterally. Hip MMT improves to 4/5 bilaterally. LTG Duration 03/27/22 Assessment Summary Assessment Pt arrived with no cushion on her wheelchair today so deferred sit to stand. Pt worked hard with all other exercises, requiring only cues for pacing. Physical Therapy Plan Frequency and Duration Frequency of Treatment 2x/Week Duration of Treatment 3 months Plan of Care Start Date 12/25/21 Plan of Care End Date 03/27/22 Therapeutic Interventions Therapeutic Interventions Aquatic Therapy,Balance Training,Coordination Training ,Gait Training,Home Exercise Program,Manual Therapy, Neuromuscular Re-education, Patient/Caregiver Education, Self-Care/Home Management,Soft Tissue Mobilization, Therapeutic Activities, Therapeutic Exercises, Wheelchair Management Modalities Cold Pack/Ice Massage,Hot Packs Next Visit Focus/Plan Next Note Type Treatment Note Next Visit Plan LE strengthening in seated position. Progress UE strength . Initiate pre-standing progression - weightbearing.
--- NOTE | 2022-02-05 15:57 | PT.OTN ---
Current Diagnoses Multiple sclerosis (02/05/22) Personal history of (healed) traumatic fracture (02/05/22) Physical Therapy Treatment Note PT-OP-A Visit Information Start: 12/23/21 17:38 Freq: Status: Active Protocol: Document 02/05/22 14:41 AW (Rec: 02/05/22 15:57 AW [id number]) Out-Patient Physical Therapy Visit Information Visit Information Visit Type Progress Note Visit Start Time 15:15 Visit Stop Time 15:55 Total Visit Minutes 40 Visit Number 10 Number of FISH FILLETER Visits 0 Evaluation Information Evaluation Date 12/25/21 Precautions Precautions not ambulatory PT-OP-B Current Condition Start: 12/23/21 17:38 Freq: Status: Active Protocol: Document 12/25/21 16:45 AW (Rec: 12/25/21 17:16 AW [id number]) Current Condition History of Current Condition Onset Date multi-year history Current Complaints MS; bilateral knee pain; generalized weakness and impaired mobility History of Current Condition Sabiha lives at a local assisted living. She is confused and does not know why she is here. Her sister arrives mcc through this assessment and notes pt currently has a UTI which likely increases her confusion . Pt is mostly in bed during the day. She gets her meals in bed or in her recliner. Her chair puts her in a flexed position. Facility staff use a melissa lift to transfer her. Pt and her sister believe she was able to transfer with FWW and assist about a year ago. She has a supportive sister ( Shaina) and brother in law who live nearby. Sabiha receives total assist for ADL' s including dressing, bathing, and pt uses disposable briefs and gets changed in bed or in her recliner. Pandemic restrictions severely reduced her activity level. Prior Treatments and Tests Pt has worked with PT at this clinic over the years. At last discharge, she was able to complete sit to precision assembly inspector the parallel bars min A x 1. Treatment Goals Patient/Caregiver Goals Stand and transfer with a walker. Especially would like to be able to transfer in and out of a [employer] van to be able to go for a drive with family. Prior Functional Status Baseline Function- ADL's Needs Assist Baseline Function- Mobility Needs Assist Baseline Function- Gait Pt is not ambulatory. Baseline Function- Other Per prior PT notes, pt was able to sit<>stand using parallel bars min A x 1 ~9 months ago. Current Functional Impairments (Reported) Functional Limitations- Mobility/Gait Pt requires melissa lift for transfers. Unable to stand with max A x 2 Personal Factors Other Personal Factors That May Effect MS, cognitive impairment, and Therapy/Recovery chronicity of deficits will be barriers to rehab. Pt does have supportive family who can assist her to complete exercise at home. PT-OP-C Subjective Start: 12/23/21 17:38 Freq: Status: Active Protocol: Document 02/05/22 14:41 AW (Rec: 02/05/22 15:57 AW [id number]) OP-PT Subjective Patient Comments Patient Comments I've been staying in my room because it's cooler there. PT-OP-F Manual Assessment Start: 12/23/21 17:38 Freq: Status: Active Protocol: Document 12/25/21 16:45 AW (Rec: 12/30/21 17:42 AW [id number]) Manual Assessments Joint Mobility Assessment Joint Mobility Assessment Left knee laxity and pain with valgus-directed force PT-OP-G Mobility & Gait Start: 12/23/21 17:38 Freq: Status: Active Protocol: Document 12/25/21 16:45 AW (Rec: 12/30/21 17:44 AW [id number]) OP Mobility Evaluation Transfers Sit to Stand Unable with max A x 2. Pt needs cues and manual facilitation for knee extension but is unable to fully extend. Cues needed for hand placement OP Gait Assessment Comments Gait Comments Unable to stand with max A x2. Unable to ambulate. Pt reports severe knee pain with any weightbearing. PT-OP-J Posture/Palpation/Skin Start: 12/23/21 17:38 Freq: Status: Active Protocol: Document 12/25/21 16:45 AW (Rec: 12/30/21 17:49 AW [id number]) Posture Evaluation Comments Posture Comments Pt sits with flexed trunk in a wheelchair at this encounter. Per pt and her sister, this mimics her posture in bed and in her recliner. She has enough trunk strength to sit edge of chair with fair control and able to withstand mild to moderate perturbations . PT-OP-M Strength Start: 12/23/21 17:38 Freq: Status: Active Protocol: Document 12/25/21 16:45 AW (Rec: 12/30/21 17:47 AW [id number]) Hip Strength Hip Manual Muscle Testing B Flexion (L2) 3+ Fair+ Abduction 3+ Fair+ Adduction 3+ Fair+ Knee Strength Knee Manual Muscle Testing B Flexion (S2) 3+ Fair+ Extension (L3) 3 Fair Ankle/Foot Strength Ankle and Foot Manual Muscle Testing B Dorsiflexion (L4) 3+ Fair+ Plantarflexion (S1) 3- Fair- Inversion 3+ Fair+ Eversion (S1) 3+ Fair+ PT-OP-Q Treatments Start: 12/23/21 17:38 Freq: Status: Active Protocol: Document 02/05/22 14:41 AW (Rec: 02/05/22 15:57 AW [id number]) Cardio Equipment Upper Body Ergometer (UBE) Duration (Minutes) 6 RPM 60 Seat Position w/c Height 2.5 Therapeutic Exercises Sitting Exercises GH abduction Sitting Exercise Name GH abduction Side bilateral Resistance 3# Reps/Minutes x10 Comments partial ROM LUE Seated Crunches Sitting Exercise Name Forward crunch against resistance Resistance Lv 3 Equipment Used T-band Elbow extension Sitting Exercise Name Elbow extension Side bilateral Resistance TB 3 Marching Sitting Exercise Name Marching Side bilateral Resistance 5# Leg press Sitting Exercise Name Leg press in w/c Side bilateral Resistance TB 3 Chest press Sitting Exercise Name Chest press Side bilateral Resistance PVC /c 5# Biceps Curls Sitting Exercise Name Curls Side bilateral Resistance 5# Rows Sitting Exercise Name Rows Side bilateral Resistance TB 3 resisted GH external rotation Sitting Exercise Name resisted GH ER/IR Side bilateral Resistance TB 3 Comments HEP resisted hip abduction Sitting Exercise Name resisted hip abduction Side bilateral Resistance TB 3 Comments HEP resisted DF Sitting Exercise Name resisted DF Side bilateral Resistance TB3 Comments HEP heel raise Sitting Exercise Name heel raise Side bilateral Resistance AROM Reps/Minutes x10 Comments HEP HS curl Sitting Exercise Name HS curl Side bilateral Resistance TB3 Reps/Minutes x10 Comments HEP LAQ Sitting Exercise Name LAQ Side bilateral Resistance 5# Reps/Minutes x10 Comments HEP PT-OP-T Assessment and Plan Start: 12/23/21 17:38 Freq: Status: Active Protocol: Document 02/05/22 14:41 AW (Rec: 02/05/22 15:57 AW [id number]) Physical Therapy Assessment Goals Three Impairment unable to transfer Tunnel Drier Operator Goal (LTG) Pt will perform stand pivot transfer with FWW mod A x 1 LTG Duration 03/27/22 Two Impairment unable to stand Short Term Goal (STG) Pt will complete one rep sit to stand max A x 1 using FWW STG Duration 02/05/22 Tunnel Drier Operator Goal (LTG) Pt will stand using FWW mod A x 1 for 60 seconds LTG Duration 03/27/22 One Impairment LE weakness Tunnel Drier Operator Goal (LTG) Ankle and knee MMT improves to 4-/5 bilaterally. Hip MMT improves to 4/5 bilaterally. LTG Duration 03/27/22 Assessment Summary Assessment Sabiha needs cues for pacing in most exercises but can sustain controlled movement once the pattern is set. Physical Therapy Plan Frequency and Duration Frequency of Treatment 2x/Week Duration of Treatment 3 months Plan of Care Start Date 12/25/21 Plan of Care End Date 03/27/22 Therapeutic Interventions Therapeutic Interventions Aquatic Therapy,Balance Training,Coordination Training ,Gait Training,Home Exercise Program,Manual Therapy, Neuromuscular Re-education, Patient/Caregiver Education, Self-Care/Home Management,Soft Tissue Mobilization, Therapeutic Activities, Therapeutic Exercises, Wheelchair Management Modalities Cold Pack/Ice Massage,Hot Packs Next Visit Focus/Plan Next Note Type Treatment Note Next Visit Plan LE strengthening in seated position. Progress UE strength . Initiate pre-standing progression - weightbearing.
--- NOTE | 2022-02-18 17:27 | PT.OTN ---
Current Diagnoses Multiple sclerosis (02/18/22) Personal history of (healed) traumatic fracture (02/18/22) Physical Therapy Treatment Note PT-OP-A Visit Information Start: 12/23/21 17:38 Freq: Status: Active Protocol: Document 02/18/22 16:01 NBM (Rec: 02/18/22 17:26 NBM [id number]) Out-Patient Physical Therapy Visit Information Visit Information Visit Type Treatment Note Visit Note sister present throughout treatment Visit Start Time 16:00 Visit Stop Time 16:46 Total Visit Minutes 46 Visit Number 11 Number of PSYCHIATRIC SECURITY NURSE Visits 1 Precautions Precautions not ambulatory PT-OP-B Current Condition Start: 12/23/21 17:38 Freq: Status: Active Protocol: Document 12/25/21 16:45 AW (Rec: 12/25/21 17:16 AW [id number]) Current Condition History of Current Condition Onset Date multi-year history Current Complaints MS; bilateral knee pain; generalized weakness and impaired mobility History of Current Condition Sabiha lives at a local assisted living. She is confused and does not know why she is here. Her sister arrives assisted through this assessment and notes pt currently has a UTI which likely increases her confusion . Pt is mostly in bed during the day. She gets her meals in bed or in her recliner. Her chair puts her in a flexed position. Facility staff use a melissa lift to transfer her. Pt and her sister believe she was able to transfer with FWW and assist about a year ago. She has a supportive sister ( Shaina) and brother in law who live nearby. Sabiha receives total assist for ADL' s including dressing, bathing, and pt uses disposable briefs and gets changed in bed or in her recliner. Pandemic restrictions severely reduced her activity level. Prior Treatments and Tests Pt has worked with PT at this clinic over the years. At last discharge, she was able to complete sit to labeling specialist the parallel bars min A x 1. Treatment Goals Patient/Caregiver Goals Stand and transfer with a walker. Especially would like to be able to transfer in and out of a [employer] van to be able to go for a drive with family. Prior Functional Status Baseline Function- ADL's Needs Assist Baseline Function- Mobility Needs Assist Baseline Function- Gait Pt is not ambulatory. Baseline Function- Other Per prior PT notes, pt was able to sit<>stand using parallel bars min A x 1 ~9 months ago. Current Functional Impairments (Reported) Functional Limitations- Mobility/Gait Pt requires melissa lift for transfers. Unable to stand with max A x 2 Personal Factors Other Personal Factors That May Effect MS, cognitive impairment, and Therapy/Recovery chronicity of deficits will be barriers to rehab. Pt does have supportive family who can assist her to complete exercise at home. PT-OP-C Subjective Start: 12/23/21 17:38 Freq: Status: Active Protocol: Document 02/18/22 16:01 NBM (Rec: 02/18/22 17:26 NBM [id number]) OP-PT Subjective Patient Comments Patient Comments Pt reports no changes since last visit. She states she did not use melissa lift to come to appointment. Sister notes pt' s condition has improved a lot since coming to Physical Therapy. PT-OP-F Manual Assessment Start: 12/23/21 17:38 Freq: Status: Active Protocol: Document 12/25/21 16:45 AW (Rec: 12/30/21 17:42 AW [id number]) Manual Assessments Joint Mobility Assessment Joint Mobility Assessment Left knee laxity and pain with valgus-directed force PT-OP-G Mobility & Gait Start: 12/23/21 17:38 Freq: Status: Active Protocol: Document 12/25/21 16:45 AW (Rec: 12/30/21 17:44 AW [id number]) OP Mobility Evaluation Transfers Sit to Stand Unable with max A x 2. Pt needs cues and manual facilitation for knee extension but is unable to fully extend. Cues needed for hand placement OP Gait Assessment Comments Gait Comments Unable to stand with max A x2. Unable to ambulate. Pt reports severe knee pain with any weightbearing. PT-OP-J Posture/Palpation/Skin Start: 12/23/21 17:38 Freq: Status: Active Protocol: Document 12/25/21 16:45 AW (Rec: 12/30/21 17:49 AW [id number]) Posture Evaluation Comments Posture Comments Pt sits with flexed trunk in a wheelchair at this encounter. Per pt and her sister, this mimics her posture in bed and in her recliner. She has enough trunk strength to sit edge of chair with fair control and able to withstand mild to moderate perturbations . PT-OP-M Strength Start: 12/23/21 17:38 Freq: Status: Active Protocol: Document 12/25/21 16:45 AW (Rec: 12/30/21 17:47 AW [id number]) Hip Strength Hip Manual Muscle Testing B Flexion (L2) 3+ Fair+ Abduction 3+ Fair+ Adduction 3+ Fair+ Knee Strength Knee Manual Muscle Testing B Flexion (S2) 3+ Fair+ Extension (L3) 3 Fair Ankle/Foot Strength Ankle and Foot Manual Muscle Testing B Dorsiflexion (L4) 3+ Fair+ Plantarflexion (S1) 3- Fair- Inversion 3+ Fair+ Eversion (S1) 3+ Fair+ PT-OP-Q Treatments Start: 12/23/21 17:38 Freq: Status: Active Protocol: Document 02/18/22 16:01 JAY (Rec: 02/18/22 17:26 [facility] [id number]) Cardio Equipment Upper Body Ergometer (UBE) Duration (Minutes) 6 RPM 60 Seat Position w/c Height 2.5 Other fwd/bwd Gym Equipment Therapeutic Ball 1 Exercise Details Hip Abduction/Adduction Ball Size/Color Red - 55 cm Lv 3 T-band Body Position Sitting Comments Foot on ball Therapeutic Exercises Sitting Exercises Elbow extension Sitting Exercise Name Elbow extension Side bilateral Resistance TB 3 ER/IR Sitting Exercise Name Seated hip ER/IR Side bilateral Resistance TB 3 Leg press Sitting Exercise Name Leg press in w/c Side bilateral Resistance TB 3 Chest press Sitting Exercise Name Chest press Side bilateral Resistance PVC /c 5# Biceps Curls Sitting Exercise Name Curls Side bilateral Resistance 5# resisted hip abduction Sitting Exercise Name resisted hip abduction Side bilateral Resistance TB 3 Comments HEP resisted DF Sitting Exercise Name resisted DF Side bilateral Resistance TB3 Comments HEP heel raise Sitting Exercise Name heel raise Side bilateral Resistance AROM Reps/Minutes x10 Comments HEP HS curl Sitting Exercise Name HS curl Side bilateral Resistance TB3 Reps/Minutes x10 Comments HEP LAQ Sitting Exercise Name LAQ Side bilateral Resistance 5# Reps/Minutes x10 Comments HEP Therapeutic Activity Therapeutic Activity sit<->stand Name Pt declined PT-OP-T Assessment and Plan Start: 12/23/21 17:38 Freq: Status: Active Protocol: Document 02/18/22 16:01 NBM (Rec: 02/18/22 17:26 [facility] [id number]) Physical Therapy Assessment Goals Three Impairment unable to transfer Manager Poker Goal (LTG) Pt will perform stand pivot transfer with FWW mod A x 1 LTG Duration 03/27/22 Two Impairment unable to stand Short Term Goal (STG) Pt will complete one rep sit to stand max A x 1 using FWW STG Duration 02/05/22 Manager Poker Goal (LTG) Pt will stand using FWW mod A x 1 for 60 seconds LTG Duration 03/27/22 One Impairment LE weakness Alf Goal (LTG) Ankle and knee MMT improves to 4-/5 bilaterally. Hip MMT improves to 4/5 bilaterally. LTG Duration 03/27/22 Assessment Summary Assessment Sabiha presents in wheelchair w / weakness L>R; sister present throughout treatment. Treatment focus today on LE stregthening. Pt consistently requires initial cues for slower pacing with eccentric movements, then maintains controlled movement with improved self-awareness. Physical Therapy Plan Next Visit Focus/Plan Next Note Type Treatment Note Next Visit Plan LE strengthening in seated position. Progress UE strength . Initiate pre-standing progression - weightbearing.
--- NOTE | 2022-02-25 17:40 | PT.OTN ---
Current Diagnoses Multiple sclerosis (02/25/22) Personal history of (healed) traumatic fracture (02/25/22) Physical Therapy Treatment Note PT-OP-A Visit Information Start: 12/23/21 17:38 Freq: Status: Active Protocol: Document 02/25/22 15:54 NBM (Rec: 02/25/22 17:40 NBM [id number]) Out-Patient Physical Therapy Visit Information Visit Information Visit Type Treatment Note Visit Note sister present throughout treatment Visit Start Time 16:00 Visit Stop Time 16:55 Total Visit Minutes 55 Visit Number 12 Number of BEND UP Visits 2 Precautions Precautions not ambulatory PT-OP-B Current Condition Start: 12/23/21 17:38 Freq: Status: Active Protocol: Document 12/25/21 16:45 AW (Rec: 12/25/21 17:16 AW [id number]) Current Condition History of Current Condition Onset Date multi-year history Current Complaints MS; bilateral knee pain; generalized weakness and impaired mobility History of Current Condition Sabiha lives at a local assisted living. She is confused and does not know why she is here. Her sister arrives care home through this assessment and notes pt currently has a UTI which likely increases her confusion . Pt is mostly in bed during the day. She gets her meals in bed or in her recliner. Her chair puts her in a flexed position. Facility staff use a melissa lift to transfer her. Pt and her sister believe she was able to transfer with FWW and assist about a year ago. She has a supportive sister ( Shaina) and brother in law who live nearby. Sabiha receives total assist for ADL' s including dressing, bathing, and pt uses disposable briefs and gets changed in bed or in her recliner. Pandemic restrictions severely reduced her activity level. Prior Treatments and Tests Pt has worked with PT at this clinic over the years. At last discharge, she was able to complete sit to machine installer the parallel bars min A x 1. Treatment Goals Patient/Caregiver Goals Stand and transfer with a walker. Especially would like to be able to transfer in and out of a [employer] van to be able to go for a drive with family. Prior Functional Status Baseline Function- ADL's Needs Assist Baseline Function- Mobility Needs Assist Baseline Function- Gait Pt is not ambulatory. Baseline Function- Other Per prior PT notes, pt was able to sit<>stand using parallel bars min A x 1 ~9 months ago. Current Functional Impairments (Reported) Functional Limitations- Mobility/Gait Pt requires melissa lift for transfers. Unable to stand with max A x 2 Personal Factors Other Personal Factors That May Effect MS, cognitive impairment, and Therapy/Recovery chronicity of deficits will be barriers to rehab. Pt does have supportive family who can assist her to complete exercise at home. PT-OP-C Subjective Start: 12/23/21 17:38 Freq: Status: Active Protocol: Document 02/25/22 15:54 NBM (Rec: 02/25/22 17:40 NBM [id number]) OP-PT Subjective Patient Comments Patient Comments Pt reports feeling good today. Two caregivers helped her from bed to w/c today, melissa not used. She is afraid of falling if she tries to stand. PT-OP-F Manual Assessment Start: 12/23/21 17:38 Freq: Status: Active Protocol: Document 12/25/21 16:45 AW (Rec: 12/30/21 17:42 AW [id number]) Manual Assessments Joint Mobility Assessment Joint Mobility Assessment Left knee laxity and pain with valgus-directed force PT-OP-G Mobility & Gait Start: 12/23/21 17:38 Freq: Status: Active Protocol: Document 12/25/21 16:45 AW (Rec: 12/30/21 17:44 AW [id number]) OP Mobility Evaluation Transfers Sit to Stand Unable with max A x 2. Pt needs cues and manual facilitation for knee extension but is unable to fully extend. Cues needed for hand placement OP Gait Assessment Comments Gait Comments Unable to stand with max A x2. Unable to ambulate. Pt reports severe knee pain with any weightbearing. PT-OP-J Posture/Palpation/Skin Start: 12/23/21 17:38 Freq: Status: Active Protocol: Document 12/25/21 16:45 AW (Rec: 12/30/21 17:49 AW [id number]) Posture Evaluation Comments Posture Comments Pt sits with flexed trunk in a wheelchair at this encounter. Per pt and her sister, this mimics her posture in bed and in her recliner. She has enough trunk strength to sit edge of chair with fair control and able to withstand mild to moderate perturbations . PT-OP-M Strength Start: 12/23/21 17:38 Freq: Status: Active Protocol: Document 12/25/21 16:45 AW (Rec: 12/30/21 17:47 AW [id number]) Hip Strength Hip Manual Muscle Testing B Flexion (L2) 3+ Fair+ Abduction 3+ Fair+ Adduction 3+ Fair+ Knee Strength Knee Manual Muscle Testing B Flexion (S2) 3+ Fair+ Extension (L3) 3 Fair Ankle/Foot Strength Ankle and Foot Manual Muscle Testing B Dorsiflexion (L4) 3+ Fair+ Plantarflexion (S1) 3- Fair- Inversion 3+ Fair+ Eversion (S1) 3+ Fair+ PT-OP-Q Treatments Start: 12/23/21 17:38 Freq: Status: Active Protocol: Document 02/25/22 15:54 NBM (Rec: 02/25/22 17:40 NBM [id number]) Cardio Equipment Upper Body Ergometer (UBE) Duration (Minutes) 6 RPM 60 Seat Position w/c Height 2.5 Other fwd/bwd Therapeutic Exercises Sitting Exercises GH abduction Sitting Exercise Name GH abduction Side bilateral Resistance 3# Reps/Minutes x10 Comments partial ROM LUE Balloon Volley Sitting Exercise Name Balloon Volley Side bilateral Resistance 4# weights on wrists Elbow extension Sitting Exercise Name Elbow extension Side bilateral Resistance TB 3 Comments arm rests removed ER/IR Sitting Exercise Name Seated hip ER/IR Side bilateral Resistance TB 3 Marching Sitting Exercise Name Marching Side bilateral Resistance 5# Leg press Sitting Exercise Name Leg press in w/c Side bilateral Resistance TB 3 Chest press Sitting Exercise Name Chest press Side bilateral Resistance PVC /c 5# Biceps Curls Sitting Exercise Name Curls Side bilateral Resistance 5# Rows Sitting Exercise Name Rows Side bilateral Resistance TB 3 seated hip extension Sitting Exercise Name seated hip extension Resistance 2 block on ground Comments pt pushes foot into block resisted DF Sitting Exercise Name resisted DF Side bilateral Resistance TB3 heel raise Sitting Exercise Name heel raise Side bilateral Resistance AROM Equipment Used 5# Reps/Minutes x10 HS curl Sitting Exercise Name HS curl Side bilateral Resistance TB3 Reps/Minutes x10 LAQ Sitting Exercise Name LAQ Side bilateral Resistance 5# Reps/Minutes x10 Therapeutic Activity Therapeutic Activity weightshifting progression Name seated fwd weight shift Reps/Minutes x 3 Comments Pt cued for scooting to edge of chair, foot placement, nose over toes. Pt then attempted Sit to Stand w/ MaxA and maciel ASSISTANT COMMUNITY MANAGER at parallel bars but was unable to lift more than ~1-2 in. sit<->stand Name attempted Comments w/c brakes do not sufficiently lock. Caregiver stood behind w/c to block while BEND UP blocked wheels and provided MaxA to pt. Pt used // bars for UE support. Wheelchair Management Treatment Wheelchair Activity self-propulsion Activity Description Manual propulsion w/ UE Equipment Used w/c Level of Assistance SBA Surface carpet, tile, carpet Distance/Duration 50' x 2 PT-OP-T Assessment and Plan Start: 12/23/21 17:38 Freq: Status: Active Protocol: Document 02/25/22 15:54 NB (Rec: 02/25/22 17:40 [facility] [id number]) Physical Therapy Assessment Goals Three Impairment unable to transfer Rehabilitation Team Lead Goal (LTG) Pt will perform stand pivot transfer with FWW mod A x 1 LTG Duration 03/27/22 Two Impairment unable to stand Short Term Goal (STG) Pt will complete one rep sit to stand max A x 1 using FWW STG Duration 02/05/22 Rehabilitation Team Lead Goal (LTG) Pt will stand using FWW mod A x 1 for 60 seconds LTG Duration 03/27/22 One Impairment LE weakness Shelter Goal (LTG) Ankle and knee MMT improves to 4-/5 bilaterally. Hip MMT improves to 4/5 bilaterally. LTG Duration 03/27/22 Assessment Summary Assessment Sabiha is initially apprehensive to attempt a sit to stand today but agreeable w / weightshifting progression and encouragement. She requires max cues for sit-to- stand sequencing and is unable to perform a [id number] w/ MaxA. Pt is able to perform fwd weightshifting w/ bilateral upper extremities holding parallel bars anteriorly. Pt is able to self -propel wheelchair w/ upper extremities 2 x 50 ft. She requires max cues throughout treatment session for slower pacing w/ exercises. Pt is encouraged to have wheelchair brakes serviced as the wheelchair still moves when both brakes are set. Physical Therapy Plan Next Visit Focus/Plan Next Note Type Treatment Note Next Visit Plan Assess w/c brakes. Progress seated fwd weightshifting w/ UE on thighs instead of // bars. POC: LE strengthening in seated position. Progress UE strength. Initiate pre- standing progression - weightbearing.
--- NOTE | 2022-03-03 16:45 | PT.OTN ---
Current Diagnoses Multiple sclerosis (03/03/22) Personal history of (healed) traumatic fracture (03/03/22) Physical Therapy Treatment Note PT-OP-A Visit Information Start: 12/23/21 17:38 Freq: Status: Active Protocol: Document 03/03/22 16:00 DCW (Rec: 03/03/22 16:45 DCW [id number]) Out-Patient Physical Therapy Visit Information Visit Information Visit Type Treatment Note Visit Note sister present throughout treatment Visit Start Time 16:00 Visit Stop Time 16:45 Total Visit Minutes 45 Visit Number 13 Number of CONVEYOR TECHNICIAN Visits 0 Precautions Precautions not ambulatory PT-OP-B Current Condition Start: 12/23/21 17:38 Freq: Status: Active Protocol: Document 12/25/21 16:45 AW (Rec: 12/25/21 17:16 AW [id number]) Current Condition History of Current Condition Onset Date multi-year history Current Complaints MS; bilateral knee pain; generalized weakness and impaired mobility History of Current Condition Sabiha lives at a local assisted living. She is confused and does not know why she is here. Her sister arrives [facility] through this assessment and notes pt currently has a UTI which likely increases her confusion . Pt is mostly in bed during the day. She gets her meals in bed or in her recliner. Her chair puts her in a flexed position. Facility staff use a melissa lift to transfer her. Pt and her sister believe she was able to transfer with FWW and assist about a year ago. She has a supportive sister ( Shaina) and brother in law who live nearby. Sabiha receives total assist for ADL' s including dressing, bathing, and pt uses disposable briefs and gets changed in bed or in her recliner. Pandemic restrictions severely reduced her activity level. Prior Treatments and Tests Pt has worked with PT at this clinic over the years. At last discharge, she was able to complete sit to acting manager the parallel bars min A x 1. Treatment Goals Patient/Caregiver Goals Stand and transfer with a walker. Especially would like to be able to transfer in and out of a [employer] van to be able to go for a drive with family. Prior Functional Status Baseline Function- ADL's Needs Assist Baseline Function- Mobility Needs Assist Baseline Function- Gait Pt is not ambulatory. Baseline Function- Other Per prior PT notes, pt was able to sit<>stand using parallel bars min A x 1 ~9 months ago. Current Functional Impairments (Reported) Functional Limitations- Mobility/Gait Pt requires melissa lift for transfers. Unable to stand with max A x 2 Personal Factors Other Personal Factors That May Effect MS, cognitive impairment, and Therapy/Recovery chronicity of deficits will be barriers to rehab. Pt does have supportive family who can assist her to complete exercise at home. PT-OP-C Subjective Start: 12/23/21 17:38 Freq: Status: Active Protocol: Document 03/03/22 16:00 DCW (Rec: 03/03/22 16:45 DCW [id number]) OP-PT Subjective Patient Comments Patient Comments Pt reports she is okay today . NOtes she didn't use a melissa for transfer today. PT-OP-F Manual Assessment Start: 12/23/21 17:38 Freq: Status: Active Protocol: Document 12/25/21 16:45 AW (Rec: 12/30/21 17:42 AW [id number]) Manual Assessments Joint Mobility Assessment Joint Mobility Assessment Left knee laxity and pain with valgus-directed force PT-OP-G Mobility & Gait Start: 12/23/21 17:38 Freq: Status: Active Protocol: Document 12/25/21 16:45 AW (Rec: 12/30/21 17:44 AW [id number]) OP Mobility Evaluation Transfers Sit to Stand Unable with max A x 2. Pt needs cues and manual facilitation for knee extension but is unable to fully extend. Cues needed for hand placement OP Gait Assessment Comments Gait Comments Unable to stand with max A x2. Unable to ambulate. Pt reports severe knee pain with any weightbearing. PT-OP-J Posture/Palpation/Skin Start: 12/23/21 17:38 Freq: Status: Active Protocol: Document 12/25/21 16:45 AW (Rec: 12/30/21 17:49 AW [id number]) Posture Evaluation Comments Posture Comments Pt sits with flexed trunk in a wheelchair at this encounter. Per pt and her sister, this mimics her posture in bed and in her recliner. She has enough trunk strength to sit edge of chair with fair control and able to withstand mild to moderate perturbations . PT-OP-M Strength Start: 12/23/21 17:38 Freq: Status: Active Protocol: Document 12/25/21 16:45 AW (Rec: 12/30/21 17:47 AW [id number]) Hip Strength Hip Manual Muscle Testing B Flexion (L2) 3+ Fair+ Abduction 3+ Fair+ Adduction 3+ Fair+ Knee Strength Knee Manual Muscle Testing B Flexion (S2) 3+ Fair+ Extension (L3) 3 Fair Ankle/Foot Strength Ankle and Foot Manual Muscle Testing B Dorsiflexion (L4) 3+ Fair+ Plantarflexion (S1) 3- Fair- Inversion 3+ Fair+ Eversion (S1) 3+ Fair+ PT-OP-Q Treatments Start: 12/23/21 17:38 Freq: Status: Active Protocol: Document 03/03/22 16:00 DCW (Rec: 03/03/22 16:45 DCW [id number]) Cardio Equipment Upper Body Ergometer (UBE) Duration (Minutes) 6 RPM 60 Seat Position w/c Height 2.5 Other fwd/bwd Therapeutic Exercises Sitting Exercises Seated Crunches Sitting Exercise Name Forward crunch against resistance Resistance Lv 3 Equipment Used T-band Balloon Volley Sitting Exercise Name Balloon Volley Side bilateral Resistance 4# weights on wrists Elbow extension Sitting Exercise Name Elbow extension Side bilateral Resistance TB 3 Comments arm rests removed ER/IR Sitting Exercise Name Seated hip ER/IR Side bilateral Resistance TB 3 Marching Sitting Exercise Name Marching Side bilateral Resistance 5# Chest press Sitting Exercise Name Chest press Side bilateral Resistance PVC /c 5# Biceps Curls Sitting Exercise Name Curls Side bilateral Resistance PVC /c 5# Rows Sitting Exercise Name Rows Side bilateral Resistance TB 3 resisted hip abduction Sitting Exercise Name resisted hip abduction Side bilateral Resistance TB 3 Comments HEP resisted DF Sitting Exercise Name resisted DF Side bilateral Resistance TB3 heel raise Sitting Exercise Name heel raise Side bilateral Resistance AROM Equipment Used 5# Reps/Minutes x10 HS curl Sitting Exercise Name HS curl Side bilateral Resistance TB3 Reps/Minutes x10 LAQ Sitting Exercise Name LAQ Side bilateral Resistance 5# Reps/Minutes x10 Therapeutic Activity Therapeutic Activity sit<->stand Name Sit<->stand at // bars Comments Mod Ax1 /c gait belt PT-OP-T Assessment and Plan Start: 12/23/21 17:38 Freq: Status: Active Protocol: Document 03/03/22 16:00 DCW (Rec: 03/03/22 16:45 DCW [id number]) Physical Therapy Assessment Goals Three Impairment unable to transfer Usp Goal (LTG) Pt will perform stand pivot transfer with FWW mod A x 1 LTG Duration 03/27/22 Two Impairment unable to stand Short Term Goal (STG) Pt will complete one rep sit to stand max A x 1 using FWW STG Duration 02/05/22 Usp Goal (LTG) Pt will stand using FWW mod A x 1 for 60 seconds LTG Duration 03/27/22 One Impairment LE weakness Usp Goal (LTG) Ankle and knee MMT improves to 4-/5 bilaterally. Hip MMT improves to 4/5 bilaterally. LTG Duration 03/27/22 Assessment Summary Assessment Pt more willing to stand at // bars today, Mod Ax1. Continue focusing on general strengthening, improving activity tolerance, and mobility. Physical Therapy Plan Frequency and Duration Frequency of Treatment 2x/Week Duration of Treatment 3 months Plan of Care Start Date 12/25/21 Plan of Care End Date 03/27/22 Next Visit Focus/Plan Next Note Type Treatment Note Next Visit Plan Assess w/c brakes. Progress seated fwd weightshifting w/ UE on thighs instead of // bars. POC: LE strengthening in seated position. Progress UE strength. Initiate pre- standing progression - weightbearing.
--- NOTE | 2022-03-10 16:47 | PT.OTN ---
Current Diagnoses Multiple sclerosis (03/10/22) Personal history of (healed) traumatic fracture (03/10/22) Physical Therapy Treatment Note PT-OP-A Visit Information Start: 12/23/21 17:38 Freq: Status: Active Protocol: Document 03/10/22 16:00 DCW (Rec: 03/10/22 16:45 DCW [id number]) Out-Patient Physical Therapy Visit Information Visit Information Visit Type Treatment Note Visit Note sister present throughout treatment Visit Start Time 16:00 Visit Stop Time 16:45 Total Visit Minutes 45 Visit Number 14 Number of SAW SETTER Visits 0 Evaluation Information Evaluation Date 12/25/21 Precautions Precautions not ambulatory PT-OP-B Current Condition Start: 12/23/21 17:38 Freq: Status: Active Protocol: Document 12/25/21 16:45 AW (Rec: 12/25/21 17:16 AW [id number]) Current Condition History of Current Condition Onset Date multi-year history Current Complaints MS; bilateral knee pain; generalized weakness and impaired mobility History of Current Condition Sabiha lives at a local assisted living. She is confused and does not know why she is here. Her sister arrives half-way through this assessment and notes pt currently has a UTI which likely increases her confusion . Pt is mostly in bed during the day. She gets her meals in bed or in her recliner. Her chair puts her in a flexed position. Facility staff use a melissa lift to transfer her. Pt and her sister believe she was able to transfer with FWW and assist about a year ago. She has a supportive sister ( Shaina) and brother in law who live nearby. Sabiha receives total assist for ADL' s including dressing, bathing, and pt uses disposable briefs and gets changed in bed or in her recliner. Pandemic restrictions severely reduced her activity level. Prior Treatments and Tests Pt has worked with PT at this clinic over the years. At last discharge, she was able to complete sit to labor standards director the parallel bars min A x 1. Treatment Goals Patient/Caregiver Goals Stand and transfer with a walker. Especially would like to be able to transfer in and out of a [employer] van to be able to go for a drive with family. Prior Functional Status Baseline Function- ADL's Needs Assist Baseline Function- Mobility Needs Assist Baseline Function- Gait Pt is not ambulatory. Baseline Function- Other Per prior PT notes, pt was able to sit<>stand using parallel bars min A x 1 ~9 months ago. Current Functional Impairments (Reported) Functional Limitations- Mobility/Gait Pt requires melissa lift for transfers. Unable to stand with max A x 2 Personal Factors Other Personal Factors That May Effect MS, cognitive impairment, and Therapy/Recovery chronicity of deficits will be barriers to rehab. Pt does have supportive family who can assist her to complete exercise at home. PT-OP-C Subjective Start: 12/23/21 17:38 Freq: Status: Active Protocol: Document 03/10/22 16:00 DCW (Rec: 03/10/22 16:45 DCW [id number]) OP-PT Subjective Patient Comments Patient Comments Pt notes she is doing well today, no difficulty with transfers recently. PT-OP-F Manual Assessment Start: 12/23/21 17:38 Freq: Status: Active Protocol: Document 12/25/21 16:45 AW (Rec: 12/30/21 17:42 AW [id number]) Manual Assessments Joint Mobility Assessment Joint Mobility Assessment Left knee laxity and pain with valgus-directed force PT-OP-G Mobility & Gait Start: 12/23/21 17:38 Freq: Status: Active Protocol: Document 12/25/21 16:45 AW (Rec: 12/30/21 17:44 AW [id number]) OP Mobility Evaluation Transfers Sit to Stand Unable with max A x 2. Pt needs cues and manual facilitation for knee extension but is unable to fully extend. Cues needed for hand placement OP Gait Assessment Comments Gait Comments Unable to stand with max A x2. Unable to ambulate. Pt reports severe knee pain with any weightbearing. PT-OP-J Posture/Palpation/Skin Start: 12/23/21 17:38 Freq: Status: Active Protocol: Document 12/25/21 16:45 AW (Rec: 12/30/21 17:49 AW [id number]) Posture Evaluation Comments Posture Comments Pt sits with flexed trunk in a wheelchair at this encounter. Per pt and her sister, this mimics her posture in bed and in her recliner. She has enough trunk strength to sit edge of chair with fair control and able to withstand mild to moderate perturbations . PT-OP-M Strength Start: 12/23/21 17:38 Freq: Status: Active Protocol: Document 12/25/21 16:45 AW (Rec: 12/30/21 17:47 AW [id number]) Hip Strength Hip Manual Muscle Testing B Flexion (L2) 3+ Fair+ Abduction 3+ Fair+ Adduction 3+ Fair+ Knee Strength Knee Manual Muscle Testing B Flexion (S2) 3+ Fair+ Extension (L3) 3 Fair Ankle/Foot Strength Ankle and Foot Manual Muscle Testing B Dorsiflexion (L4) 3+ Fair+ Plantarflexion (S1) 3- Fair- Inversion 3+ Fair+ Eversion (S1) 3+ Fair+ PT-OP-Q Treatments Start: 12/23/21 17:38 Freq: Status: Active Protocol: Document 03/10/22 16:00 DCW (Rec: 03/10/22 16:45 DCW [id number]) Cardio Equipment Upper Body Ergometer (UBE) Duration (Minutes) 6 RPM 60 Seat Position w/c Height 2.5 Other fwd/bwd Therapeutic Exercises Sitting Exercises Seated Crunches Sitting Exercise Name Forward crunch against resistance Resistance Lv 3 Equipment Used T-band Balloon Volley Sitting Exercise Name Balloon Volley Side bilateral Resistance 4# weights on wrists Marching Sitting Exercise Name Marching Side bilateral Resistance 5# Leg press Sitting Exercise Name Leg press in w/c Side bilateral Resistance TB 3 Chest press Sitting Exercise Name Chest press Side bilateral Resistance PVC /c 5# Biceps Curls Sitting Exercise Name Curls Side bilateral Resistance PVC /c 5# Rows Sitting Exercise Name Rows Side bilateral Resistance TB 3 resisted hip abduction Sitting Exercise Name resisted hip abduction Side bilateral Resistance TB 3 resisted DF Sitting Exercise Name resisted DF Side bilateral Resistance TB3 heel raise Sitting Exercise Name heel raise Side bilateral Resistance AROM Equipment Used 5# Reps/Minutes x10 HS curl Sitting Exercise Name HS curl Side bilateral Resistance TB3 Reps/Minutes x10 LAQ Sitting Exercise Name LAQ Side bilateral Resistance 5# Reps/Minutes x10 Therapeutic Activity Therapeutic Activity sit<->stand Name Sit<->stand at // bars Reps/Minutes 3x5 Comments Mod Ax1 /c gait belt PT-OP-T Assessment and Plan Start: 12/23/21 17:38 Freq: Status: Active Protocol: Document 03/10/22 16:00 DCW (Rec: 03/10/22 16:45 DCW [id number]) Physical Therapy Assessment Goals Three Impairment unable to transfer Senior Care Goal (LTG) Pt will perform stand pivot transfer with FWW mod A x 1 LTG Duration 03/27/22 Two Impairment unable to stand Short Term Goal (STG) Pt will complete one rep sit to stand max A x 1 using FWW STG Duration 02/05/22 Glass Mould Cleaner Goal (LTG) Pt will stand using FWW mod A x 1 for 60 seconds LTG Duration 03/27/22 One Impairment LE weakness Senior Care Goal (LTG) Ankle and knee MMT improves to 4-/5 bilaterally. Hip MMT improves to 4/5 bilaterally. LTG Duration 03/27/22 Assessment Summary Assessment Pt did much better sit<->stand transfers in the // bars today, decreased assistance required from therapist. Pt showing some improvement with UE strength through improved form with shoulder press. Unable to find appropriate tools to fix w/c brakes today. Physical Therapy Plan Frequency and Duration Frequency of Treatment 2x/Week Duration of Treatment 3 months Plan of Care Start Date 12/25/21 Plan of Care End Date 03/27/22 Next Visit Focus/Plan Next Note Type Treatment Note Next Visit Plan Assess w/c brakes. Progress seated fwd weightshifting w/ UE on thighs instead of // bars. POC: LE strengthening in seated position. Progress UE strength. Initiate pre- standing progression - weightbearing.
--- NOTE | 2022-03-18 16:45 | PT.OTN ---
Current Diagnoses Multiple sclerosis (03/18/22) Personal history of (healed) traumatic fracture (03/18/22) Physical Therapy Treatment Note PT-OP-A Visit Information Start: 12/23/21 17:38 Freq: Status: Active Protocol: Document 03/18/22 16:00 DCW (Rec: 03/18/22 16:45 DCW [id number]) Out-Patient Physical Therapy Visit Information Visit Information Visit Type Treatment Note Visit Note sister present throughout treatment Visit Start Time 16:00 Visit Stop Time 16:45 Total Visit Minutes 45 Visit Number 15 Number of REAL ESTATE SALESPERSON Visits 0 Evaluation Information Evaluation Date 12/25/21 Precautions Precautions not ambulatory PT-OP-B Current Condition Start: 12/23/21 17:38 Freq: Status: Active Protocol: Document 12/25/21 16:45 AW (Rec: 12/25/21 17:16 AW [id number]) Current Condition History of Current Condition Onset Date multi-year history Current Complaints MS; bilateral knee pain; generalized weakness and impaired mobility History of Current Condition Sabiha lives at a local assisted living. She is confused and does not know why she is here. Her sister arrives [facility] through this assessment and notes pt currently has a UTI which likely increases her confusion . Pt is mostly in bed during the day. She gets her meals in bed or in her recliner. Her chair puts her in a flexed position. Facility staff use a melissa lift to transfer her. Pt and her sister believe she was able to transfer with FWW and assist about a year ago. She has a supportive sister ( Shaina) and brother in law who live nearby. Sabiha receives total assist for ADL' s including dressing, bathing, and pt uses disposable briefs and gets changed in bed or in her recliner. Pandemic restrictions severely reduced her activity level. Prior Treatments and Tests Pt has worked with PT at this clinic over the years. At last discharge, she was able to complete sit to patient intake representative the parallel bars min A x 1. Treatment Goals Patient/Caregiver Goals Stand and transfer with a walker. Especially would like to be able to transfer in and out of a [employer] van to be able to go for a drive with family. Prior Functional Status Baseline Function- ADL's Needs Assist Baseline Function- Mobility Needs Assist Baseline Function- Gait Pt is not ambulatory. Baseline Function- Other Per prior PT notes, pt was able to sit<>stand using parallel bars min A x 1 ~9 months ago. Current Functional Impairments (Reported) Functional Limitations- Mobility/Gait Pt requires melissa lift for transfers. Unable to stand with max A x 2 Personal Factors Other Personal Factors That May Effect MS, cognitive impairment, and Therapy/Recovery chronicity of deficits will be barriers to rehab. Pt does have supportive family who can assist her to complete exercise at home. PT-OP-C Subjective Start: 12/23/21 17:38 Freq: Status: Active Protocol: Document 03/18/22 16:00 DCW (Rec: 03/18/22 16:45 DCW [id number]) OP-PT Subjective Patient Comments Patient Comments Pt reports her transfers have been fine, notes no concerns . PT-OP-F Manual Assessment Start: 12/23/21 17:38 Freq: Status: Active Protocol: Document 12/25/21 16:45 AW (Rec: 12/30/21 17:42 AW [id number]) Manual Assessments Joint Mobility Assessment Joint Mobility Assessment Left knee laxity and pain with valgus-directed force PT-OP-G Mobility & Gait Start: 12/23/21 17:38 Freq: Status: Active Protocol: Document 12/25/21 16:45 AW (Rec: 12/30/21 17:44 AW [id number]) OP Mobility Evaluation Transfers Sit to Stand Unable with max A x 2. Pt needs cues and manual facilitation for knee extension but is unable to fully extend. Cues needed for hand placement OP Gait Assessment Comments Gait Comments Unable to stand with max A x2. Unable to ambulate. Pt reports severe knee pain with any weightbearing. PT-OP-J Posture/Palpation/Skin Start: 12/23/21 17:38 Freq: Status: Active Protocol: Document 12/25/21 16:45 AW (Rec: 12/30/21 17:49 AW [id number]) Posture Evaluation Comments Posture Comments Pt sits with flexed trunk in a wheelchair at this encounter. Per pt and her sister, this mimics her posture in bed and in her recliner. She has enough trunk strength to sit edge of chair with fair control and able to withstand mild to moderate perturbations . PT-OP-M Strength Start: 12/23/21 17:38 Freq: Status: Active Protocol: Document 12/25/21 16:45 AW (Rec: 12/30/21 17:47 AW [id number]) Hip Strength Hip Manual Muscle Testing B Flexion (L2) 3+ Fair+ Abduction 3+ Fair+ Adduction 3+ Fair+ Knee Strength Knee Manual Muscle Testing B Flexion (S2) 3+ Fair+ Extension (L3) 3 Fair Ankle/Foot Strength Ankle and Foot Manual Muscle Testing B Dorsiflexion (L4) 3+ Fair+ Plantarflexion (S1) 3- Fair- Inversion 3+ Fair+ Eversion (S1) 3+ Fair+ PT-OP-Q Treatments Start: 12/23/21 17:38 Freq: Status: Active Protocol: Document 03/18/22 16:00 DCW (Rec: 03/18/22 16:45 DCW [id number]) Cardio Equipment Upper Body Ergometer (UBE) Duration (Minutes) 6 RPM 60 Seat Position w/c Height 2.5 Other fwd/bwd Therapeutic Exercises Sitting Exercises Seated Crunches Sitting Exercise Name Forward crunch against resistance Resistance Lv 3 Equipment Used T-band Balloon Volley Sitting Exercise Name Balloon Volley Side bilateral Resistance 5# weights on wrists Elbow extension Sitting Exercise Name Elbow extension Side bilateral Resistance TB 3 Comments arm rests removed Marching Sitting Exercise Name Marching Side bilateral Resistance 5# Leg press Sitting Exercise Name Leg press in w/c Side bilateral Resistance TB 3 Chest press Sitting Exercise Name Chest press Side bilateral Resistance PVC /c 5# Biceps Curls Sitting Exercise Name Curls Side bilateral Resistance PVC /c 5# Rows Sitting Exercise Name Rows Side bilateral Resistance TB 3 resisted hip abduction Sitting Exercise Name resisted hip abduction Side bilateral Resistance TB 3 resisted DF Sitting Exercise Name resisted DF Side bilateral Resistance TB3 heel raise Sitting Exercise Name heel raise Side bilateral Resistance AROM Equipment Used 5# Reps/Minutes x10 HS curl Sitting Exercise Name HS curl Side bilateral Resistance TB3 Reps/Minutes x10 LAQ Sitting Exercise Name LAQ Side bilateral Resistance 5# Reps/Minutes x10 Therapeutic Activity Therapeutic Activity sit<->stand Name Sit<->stand at // bars Reps/Minutes 3x5 Comments Mod Ax1 /c gait belt PT-OP-T Assessment and Plan Start: 12/23/21 17:38 Freq: Status: Active Protocol: Document 03/18/22 16:00 DCW (Rec: 03/18/22 16:45 DCW [id number]) Physical Therapy Assessment Goals Three Impairment unable to transfer Long-Term Goal (LTG) Pt will perform stand pivot transfer with FWW mod A x 1 LTG Duration 03/27/22 Two Impairment unable to stand Short Term Goal (STG) Pt will complete one rep sit to stand max A x 1 using FWW STG Duration 02/05/22 Long-Term Goal (LTG) Pt will stand using FWW mod A x 1 for 60 seconds LTG Duration 03/27/22 One Impairment LE weakness Long-Term Goal (LTG) Ankle and knee MMT improves to 4-/5 bilaterally. Hip MMT improves to 4/5 bilaterally. LTG Duration 03/27/22 Assessment Summary Assessment Pt has not been quite as compliant with HEP this past week, but overall is still reportedly doing fairly well with her transfers. Sit<-> stand went well today, although did have one instance of her knee not being able to push enough and was unable to stand until she readjusted. Physical Therapy Plan Frequency and Duration Frequency of Treatment 2x/Week Duration of Treatment 3 months Plan of Care Start Date 12/25/21 Plan of Care End Date 03/27/22 Next Visit Focus/Plan Next Note Type Treatment Note Next Visit Plan Progress seated fwd weightshifting w/ UE on thighs instead of // bars. POC: LE strengthening in seated position. Progress UE strength. Initiate pre- standing progression - weightbearing.
--- NOTE | 2022-04-03 17:30 | PT.OTN ---
Current Diagnoses Multiple sclerosis (04/03/22) Personal history of (healed) traumatic fracture (04/03/22) Physical Therapy Treatment Note PT-OP-A Visit Information Start: 12/23/21 17:38 Freq: Status: Active Protocol: Document 04/03/22 16:03 DCW (Rec: 04/03/22 16:45 DCW [id number]) Out-Patient Physical Therapy Visit Information Visit Information Visit Type Treatment Note Visit Note [id number] present throughout treatment Visit Start Time 16:03 Visit Stop Time 16:45 Total Visit Minutes 42 Visit Number 16 Number of ADJUNCT FACULTY MATHEMATICS DEPARTMENT Visits 0 Evaluation Information Evaluation Date 12/25/21 Precautions Precautions not ambulatory PT-OP-B Current Condition Start: 12/23/21 17:38 Freq: Status: Active Protocol: Document 12/25/21 16:45 AW (Rec: 12/25/21 17:16 AW [id number]) Current Condition History of Current Condition Onset Date multi-year history Current Complaints MS; bilateral knee pain; generalized weakness and impaired mobility History of Current Condition Sabiha lives at a local assisted living. She is confused and does not know why she is here. Her sister arrives longterm through this assessment and notes pt currently has a UTI which likely increases her confusion . Pt is mostly in bed during the day. She gets her meals in bed or in her recliner. Her chair puts her in a flexed position. Facility staff use a melissa lift to transfer her. Pt and her sister believe she was able to transfer with FWW and assist about a year ago. She has a supportive sister ( Shaina) and brother in law who live nearby. Sabiha receives total assist for ADL' s including dressing, bathing, and pt uses disposable briefs and gets changed in bed or in her recliner. Pandemic restrictions severely reduced her activity level. Prior Treatments and Tests Pt has worked with PT at this clinic over the years. At last discharge, she was able to complete sit to public health clinical nurse specialist the parallel bars min A x 1. Treatment Goals Patient/Caregiver Goals Stand and transfer with a walker. Especially would like to be able to transfer in and out of a [employer] van to be able to go for a drive with family. Prior Functional Status Baseline Function- ADL's Needs Assist Baseline Function- Mobility Needs Assist Baseline Function- Gait Pt is not ambulatory. Baseline Function- Other Per prior PT notes, pt was able to sit<>stand using parallel bars min A x 1 ~9 months ago. Current Functional Impairments (Reported) Functional Limitations- Mobility/Gait Pt requires melissa lift for transfers. Unable to stand with max A x 2 Personal Factors Other Personal Factors That May Effect MS, cognitive impairment, and Therapy/Recovery chronicity of deficits will be barriers to rehab. Pt does have supportive family who can assist her to complete exercise at home. PT-OP-C Subjective Start: 12/23/21 17:38 Freq: Status: Active Protocol: Document 04/03/22 16:03 DCW (Rec: 04/03/22 16:45 DCW [id number]) OP-PT Subjective Patient Comments Patient Comments Pt reports she hasn't been up much today. PT-OP-F Manual Assessment Start: 12/23/21 17:38 Freq: Status: Active Protocol: Document 04/03/22 16:03 DCW (Rec: 04/03/22 17:24 DCW [id number]) Manual Assessments Joint Mobility Assessment Joint Mobility Assessment Left knee laxity and pain with valgus-directed force PT-OP-G Mobility & Gait Start: 12/23/21 17:38 Freq: Status: Active Protocol: Document 04/03/22 16:03 DCW (Rec: 04/03/22 17:24 DCW [id number]) OP Mobility Evaluation Transfers Sit to Stand Max Ax1 /c UE use of // bars. 3 sets of 5 OP Gait Assessment Comments Gait Comments Unable to ambulate. Stands at // bar for 1-2 seconds max PT-OP-J Posture/Palpation/Skin Start: 12/23/21 17:38 Freq: Status: Active Protocol: Document 04/03/22 16:03 DCW (Rec: 04/03/22 17:24 DCW [id number]) Posture Evaluation Comments Posture Comments Pt sacral sits in wheel chair, and per reports, in recliner and bed at home. PT-OP-M Strength Start: 12/23/21 17:38 Freq: Status: Active Protocol: Document 04/03/22 16:03 DCW (Rec: 04/03/22 17:24 DCW [id number]) Hip Strength Hip Manual Muscle Testing B Flexion (L2) 3+ Fair+ Abduction 4- Good- Adduction 3+ Fair+ Knee Strength Knee Manual Muscle Testing B Flexion (S2) 3+ Fair+ Extension (L3) 3+ Fair+ Ankle/Foot Strength Ankle and Foot Manual Muscle Testing B Dorsiflexion (L4) 3+ Fair+ Plantarflexion (S1) 3- Fair- Inversion 3+ Fair+ Eversion (S1) 3+ Fair+ PT-OP-Q Treatments Start: 12/23/21 17:38 Freq: Status: Active Protocol: Document 04/03/22 16:03 DCW (Rec: 04/03/22 16:45 DCW [id number]) Cardio Equipment Upper Body Ergometer (UBE) Duration (Minutes) 6 RPM 60 Seat Position w/c Height 2.5 Other fwd/bwd Therapeutic Exercises Sitting Exercises Seated Crunches Sitting Exercise Name Forward crunch against resistance Resistance Lv 3 Equipment Used T-band Balloon Volley Sitting Exercise Name Balloon Volley Side bilateral Resistance 5# weights on wrists Marching Sitting Exercise Name Marching Side bilateral Resistance 5# Leg press Sitting Exercise Name Leg press in w/c Side bilateral Resistance TB 3 Chest press Sitting Exercise Name Chest press Side bilateral Resistance PVC /c 5# Biceps Curls Sitting Exercise Name Curls Side bilateral Resistance PVC /c 5# resisted hip abduction Sitting Exercise Name resisted hip abduction Side bilateral Resistance TB 3 resisted DF Sitting Exercise Name 4-way ankle flexion Side bilateral Resistance TB3 heel raise Sitting Exercise Name heel raise Side bilateral Resistance AROM Equipment Used 5# Reps/Minutes x10 HS curl Sitting Exercise Name HS curl Side bilateral Resistance TB3 Reps/Minutes x10 LAQ Sitting Exercise Name LAQ Side bilateral Resistance 5# Reps/Minutes x10 Therapeutic Activity Therapeutic Activity sit<->stand Name Sit<->stand at // bars Reps/Minutes 3x5 Comments Mod Ax1 /c gait belt PT-OP-T Assessment and Plan Start: 12/23/21 17:38 Freq: Status: Active Protocol: Document 04/03/22 16:03 DCW (Rec: 04/03/22 16:45 DCW [id number]) Physical Therapy Assessment Goals Three Impairment unable to transfer Busperson Goal (LTG) Pt will perform stand pivot transfer with FWW mod A x 1 LTG Duration 07/02/22 Two Impairment unable to stand Short Term Goal (STG) Pt will complete one rep sit to stand max A x 1 using FWW STG Duration 06/01/22 - Improving Busperson Goal (LTG) Pt will stand using FWW mod A x 1 for 60 seconds LTG Duration 07/02/22 One Impairment LE weakness Busperson Goal (LTG) Ankle and knee MMT improves to 4-/5 bilaterally. Hip MMT improves to 4/5 bilaterally. LTG Duration 07/02/22 - Improving Assessment Summary Assessment Pt has made some progress since initial evaluation, mainly her ability to perform sit<->stand with Mod-max Ax1 when using UEs in // bars. Pt 's biggest limiting factor is her completely sedentary lifstyle, pt participates in minimal activity at home, pt's sister has to help direct HEP and is only successful occasionally. If pt does continue to show progress, may get to the point where she can at least better weight- shift in standing and perform vehicle transfers so her sister can take her out more. Physical Therapy Plan Frequency and Duration Frequency of Treatment 2x/Week Duration of Treatment 3 months Plan of Care Start Date 04/03/22 Plan of Care End Date 07/02/22 Therapeutic Interventions Therapeutic Interventions Aquatic Therapy,Balance Training,Coordination Training ,Gait Training,Home Exercise Program,Manual Therapy, Neuromuscular Re-education, Patient/Caregiver Education, Self-Care/Home Management,Soft Tissue Mobilization, Therapeutic Activities, Therapeutic Exercises, Wheelchair Management Modalities Cold Pack/Ice Massage,Hot Packs Next Visit Focus/Plan Next Note Type Treatment Note Next Visit Plan Progress seated fwd weightshifting w/ UE on thighs instead of // bars. POC: LE strengthening in seated position. Progress UE strength. Initiate pre- standing progression - weightbearing.
--- NOTE | 2022-04-03 17:30 | PT.OPPOC ---
Physical, Occupational & Speech Therapy At [facility] Current Diagnoses Multiple sclerosis (04/03/22) Personal history of (healed) traumatic fracture (04/03/22) Visit Care Team Role Provider Type Teri Singh MD Attending Provider Physician Family Provider Primary Care Provider Referring Provider Specialty: Family Practice Address: [address] [place] [address], [facility] Phone: Fax: Email: [email or web address] Plan Of Care PT-OP-T Assessment and Plan Start: 12/23/21 17:38 Freq: Status: Active Protocol: Document 04/03/22 16:03 DCW (Rec: 04/03/22 16:45 DCW [id number]) Physical Therapy Assessment Goals Three Impairment unable to transfer Dish Network Installer Goal (LTG) Pt will perform stand pivot transfer with FWW mod A x 1 LTG Duration 07/02/22 Two Impairment unable to stand Short Term Goal (STG) Pt will complete one rep sit to stand max A x 1 using FWW STG Duration 06/01/22 - Improving Dish Network Installer Goal (LTG) Pt will stand using FWW mod A x 1 for 60 seconds LTG Duration 07/02/22 One Impairment LE weakness Assisted Goal (LTG) Ankle and knee MMT improves to 4-/5 bilaterally. Hip MMT improves to 4/5 bilaterally. LTG Duration 07/02/22 - Improving Assessment Summary Assessment Pt has made some progress since initial evaluation, mainly her ability to perform sit<->stand with Mod-max Ax1 when using UEs in // bars. Pt 's biggest limiting factor is her completely sedentary lifstyle, pt participates in minimal activity at home, pt's sister has to help direct HEP and is only successful occasionally. If pt does continue to show progress, may get to the point where she can at least better weight- shift in standing and perform vehicle transfers so her sister can take her out more. Physical Therapy Plan Frequency and Duration Frequency of Treatment 2x/Week Duration of Treatment 3 months Plan of Care Start Date 04/03/22 Plan of Care End Date 07/02/22 Therapeutic Interventions Therapeutic Interventions Aquatic Therapy,Balance Training,Coordination Training ,Gait Training,Home Exercise Program,Manual Therapy, Neuromuscular Re-education, Patient/Caregiver Education, Self-Care/Home Management,Soft Tissue Mobilization, Therapeutic Activities, Therapeutic Exercises, Wheelchair Management Modalities Cold Pack/Ice Massage,Hot Packs Next Visit Focus/Plan Next Note Type Treatment Note Next Visit Plan Progress seated fwd weightshifting w/ UE on thighs instead of // bars. POC: LE strengthening in seated position. Progress UE strength. Initiate pre- standing progression - weightbearing. Plan of Care Dates Plan of Care Start Date 04/03/22 Plan of Care End Date 07/02/22 Electronically Signed by: Daryl Robertson, PT 04/03/22 [id number] If you are in agreement with this Plan of Care, please return a signed and dated copy. I have reviewed this Plan of Care and certify that the skilled therapy services above are required to meet the patient?s needs. Physician Signature Date Printed Name and Credentials Clinical Instructor Signature Printed Name and Credentials
--- NOTE | 2022-04-30 17:04 | PT.OTN ---
Current Diagnoses Multiple sclerosis (04/30/22) Personal history of (healed) traumatic fracture (04/30/22) Physical Therapy Treatment Note PT-OP-A Visit Information Start: 12/23/21 17:38 Freq: Status: Active Protocol: Document 04/30/22 16:05 AW (Rec: 04/30/22 17:04 AW [id number]) Out-Patient Physical Therapy Visit Information Visit Information Visit Type Treatment Note Visit Start Time 16:06 Visit Stop Time 16:46 Total Visit Minutes 40 Visit Number 17 Number of BAG BUILDER Visits 0 Evaluation Information Evaluation Date 12/25/21 Precautions Precautions not ambulatory PT-OP-B Current Condition Start: 12/23/21 17:38 Freq: Status: Active Protocol: Document 12/25/21 16:45 AW (Rec: 12/25/21 17:16 AW [id number]) Current Condition History of Current Condition Onset Date multi-year history Current Complaints MS; bilateral knee pain; generalized weakness and impaired mobility History of Current Condition Sabiha lives at a local assisted living. She is confused and does not know why she is here. Her sister arrives detention through this assessment and notes pt currently has a UTI which likely increases her confusion . Pt is mostly in bed during the day. She gets her meals in bed or in her recliner. Her chair puts her in a flexed position. Facility staff use a melissa lift to transfer her. Pt and her sister believe she was able to transfer with FWW and assist about a year ago. She has a supportive sister ( Shaina) and brother in law who live nearby. Sabiha receives total assist for ADL' s including dressing, bathing, and pt uses disposable briefs and gets changed in bed or in her recliner. Pandemic restrictions severely reduced her activity level. Prior Treatments and Tests Pt has worked with PT at this clinic over the years. At last discharge, she was able to complete sit to terminal block assembler the parallel bars min A x 1. Treatment Goals Patient/Caregiver Goals Stand and transfer with a walker. Especially would like to be able to transfer in and out of a [employer] van to be able to go for a drive with family. Prior Functional Status Baseline Function- ADL's Needs Assist Baseline Function- Mobility Needs Assist Baseline Function- Gait Pt is not ambulatory. Baseline Function- Other Per prior PT notes, pt was able to sit<>stand using parallel bars min A x 1 ~9 months ago. Current Functional Impairments (Reported) Functional Limitations- Mobility/Gait Pt requires melissa lift for transfers. Unable to stand with max A x 2 Personal Factors Other Personal Factors That May Effect MS, cognitive impairment, and Therapy/Recovery chronicity of deficits will be barriers to rehab. Pt does have supportive family who can assist her to complete exercise at home. PT-OP-C Subjective Start: 12/23/21 17:38 Freq: Status: Active Protocol: Document 04/30/22 16:05 AW (Rec: 04/30/22 17:04 AW [id number]) OP-PT Subjective Patient Comments Patient Comments Sabiha is tired and cold today. PT-OP-F Manual Assessment Start: 12/23/21 17:38 Freq: Status: Active Protocol: Document 04/03/22 16:03 DCW (Rec: 04/03/22 17:24 DCW [id number]) Manual Assessments Joint Mobility Assessment Joint Mobility Assessment Left knee laxity and pain with valgus-directed force PT-OP-G Mobility & Gait Start: 12/23/21 17:38 Freq: Status: Active Protocol: Document 04/03/22 16:03 DCW (Rec: 04/03/22 17:24 DCW [id number]) OP Mobility Evaluation Transfers Sit to Stand Max Ax1 /c UE use of // bars. 3 sets of 5 OP Gait Assessment Comments Gait Comments Unable to ambulate. Stands at // bar for 1-2 seconds max PT-OP-J Posture/Palpation/Skin Start: 12/23/21 17:38 Freq: Status: Active Protocol: Document 04/03/22 16:03 DCW (Rec: 04/03/22 17:24 DCW [id number]) Posture Evaluation Comments Posture Comments Pt sacral sits in wheel chair, and per reports, in recliner and bed at home. PT-OP-M Strength Start: 12/23/21 17:38 Freq: Status: Active Protocol: Document 04/03/22 16:03 DCW (Rec: 04/03/22 17:24 DCW [id number]) Hip Strength Hip Manual Muscle Testing B Flexion (L2) 3+ Fair+ Abduction 4- Good- Adduction 3+ Fair+ Knee Strength Knee Manual Muscle Testing B Flexion (S2) 3+ Fair+ Extension (L3) 3+ Fair+ Ankle/Foot Strength Ankle and Foot Manual Muscle Testing B Dorsiflexion (L4) 3+ Fair+ Plantarflexion (S1) 3- Fair- Inversion 3+ Fair+ Eversion (S1) 3+ Fair+ PT-OP-Q Treatments Start: 12/23/21 17:38 Freq: Status: Active Protocol: Document 04/30/22 16:05 AW (Rec: 04/30/22 17:04 AW [id number]) Cardio Equipment Upper Body Ergometer (UBE) Duration (Minutes) 6 RPM 60 Seat Position w/c Height 2.5 Other fwd/bwd Therapeutic Exercises Sitting Exercises Seated Crunches Sitting Exercise Name Forward crunch against resistance Resistance Lv 3 Equipment Used T-band Marching Sitting Exercise Name Marching Side bilateral Resistance 5# Leg press Sitting Exercise Name Leg press in w/c Side bilateral Resistance TB 3 Chest press Sitting Exercise Name Chest press Side bilateral Resistance PVC /c 5# Biceps Curls Sitting Exercise Name Curls Side bilateral Resistance PVC /c 5# resisted hip abduction Sitting Exercise Name resisted hip abduction Side bilateral Resistance TB 3 resisted DF Sitting Exercise Name 4-way ankle flexion Side bilateral Resistance TB3 heel raise Sitting Exercise Name heel raise Side bilateral Resistance AROM Equipment Used 5# Reps/Minutes x10 HS curl Sitting Exercise Name HS curl Side bilateral Resistance TB3 Reps/Minutes x10 LAQ Sitting Exercise Name LAQ Side bilateral Resistance 5# Reps/Minutes x10 Therapeutic Activity Therapeutic Activity sit<->stand Name Sit<->stand at // bars Reps/Minutes 3x5 Comments Mod/max Ax1 /c gait belt PT-OP-T Assessment and Plan Start: 12/23/21 17:38 Freq: Status: Active Protocol: Document 04/30/22 16:05 AW (Rec: 04/30/22 17:04 [id number]) Physical Therapy Assessment Goals Three Impairment unable to transfer Usp Goal (LTG) Pt will perform stand pivot transfer with FWW mod A x 1 LTG Duration 07/02/22 Two Impairment unable to stand Short Term Goal (STG) Pt will complete one rep sit to stand max A x 1 using FWW STG Duration 06/01/22 - Improving Usp Goal (LTG) Pt will stand using FWW mod A x 1 for 60 seconds LTG Duration 07/02/22 One Impairment LE weakness Electric System Operator Goal (LTG) Ankle and knee MMT improves to 4-/5 bilaterally. Hip MMT improves to 4/5 bilaterally. LTG Duration 07/02/22 - Improving Assessment Summary Assessment Sabiha has not been seen for four weeks but her activity tolerance seems unaffected. She showed good effort today. Sit to stand did require more assist but she was able to stand and remained standing ~ 10 seconds on the final rep. Physical Therapy Plan Frequency and Duration Frequency of Treatment 2x/Week Plan of Care Start Date 04/03/22 Plan of Care End Date 07/02/22 Therapeutic Interventions Therapeutic Interventions Aquatic Therapy,Balance Training,Coordination Training ,Gait Training,Home Exercise Program,Manual Therapy, Neuromuscular Re-education, Patient/Caregiver Education, Self-Care/Home Management,Soft Tissue Mobilization, Therapeutic Activities, Therapeutic Exercises, Wheelchair Management Modalities Cold Pack/Ice Massage,Hot Packs Next Visit Focus/Plan Next Note Type Treatment Note Next Visit Plan Progress seated fwd weightshifting w/ UE on thighs instead of // bars. POC: LE strengthening in seated position. Progress UE strength. Initiate pre- standing progression - weightbearing.
--- NOTE | 2022-05-21 16:50 | PT.OTN ---
Current Diagnoses Multiple sclerosis (05/21/22) Personal history of (healed) traumatic fracture (05/21/22) Physical Therapy Treatment Note PT-OP-A Visit Information Start: 12/23/21 17:38 Freq: Status: Active Protocol: Document 05/21/22 16:00 DCW (Rec: 05/21/22 16:50 DCW [id number]) Out-Patient Physical Therapy Visit Information Visit Information Visit Type Treatment Note Visit Start Time 16:00 Visit Stop Time 16:45 Total Visit Minutes 45 Visit Number 18 Number of LEAD RELAY TESTER Visits 0 Evaluation Information Evaluation Date 12/25/21 Precautions Precautions not ambulatory PT-OP-B Current Condition Start: 12/23/21 17:38 Freq: Status: Active Protocol: Document 12/25/21 16:45 AW (Rec: 12/25/21 17:16 AW [id number]) Current Condition History of Current Condition Onset Date multi-year history Current Complaints MS; bilateral knee pain; generalized weakness and impaired mobility History of Current Condition Sabiha lives at a local assisted living. She is confused and does not know why she is here. Her sister arrives group home through this assessment and notes pt currently has a UTI which likely increases her confusion . Pt is mostly in bed during the day. She gets her meals in bed or in her recliner. Her chair puts her in a flexed position. Facility staff use a melissa lift to transfer her. Pt and her sister believe she was able to transfer with FWW and assist about a year ago. She has a supportive sister ( Shaina) and brother in law who live nearby. Sabiha receives total assist for ADL' s including dressing, bathing, and pt uses disposable briefs and gets changed in bed or in her recliner. Pandemic restrictions severely reduced her activity level. Prior Treatments and Tests Pt has worked with PT at this clinic over the years. At last discharge, she was able to complete sit to delinquent tax collector assistant the parallel bars min A x 1. Treatment Goals Patient/Caregiver Goals Stand and transfer with a walker. Especially would like to be able to transfer in and out of a [employer] van to be able to go for a drive with family. Prior Functional Status Baseline Function- ADL's Needs Assist Baseline Function- Mobility Needs Assist Baseline Function- Gait Pt is not ambulatory. Baseline Function- Other Per prior PT notes, pt was able to sit<>stand using parallel bars min A x 1 ~9 months ago. Current Functional Impairments (Reported) Functional Limitations- Mobility/Gait Pt requires melissa lift for transfers. Unable to stand with max A x 2 Personal Factors Other Personal Factors That May Effect MS, cognitive impairment, and Therapy/Recovery chronicity of deficits will be barriers to rehab. Pt does have supportive family who can assist her to complete exercise at home. PT-OP-C Subjective Start: 12/23/21 17:38 Freq: Status: Active Protocol: Document 05/21/22 16:00 DCW (Rec: 05/21/22 16:50 DCW [id number]) OP-PT Subjective Patient Comments Patient Comments Pt notes she is feeling alright today. PT-OP-F Manual Assessment Start: 12/23/21 17:38 Freq: Status: Active Protocol: Document 04/03/22 16:03 DCW (Rec: 04/03/22 17:24 DCW [id number]) Manual Assessments Joint Mobility Assessment Joint Mobility Assessment Left knee laxity and pain with valgus-directed force PT-OP-G Mobility & Gait Start: 12/23/21 17:38 Freq: Status: Active Protocol: Document 04/03/22 16:03 DCW (Rec: 04/03/22 17:24 DCW [id number]) OP Mobility Evaluation Transfers Sit to Stand Max Ax1 /c UE use of // bars. 3 sets of 5 OP Gait Assessment Comments Gait Comments Unable to ambulate. Stands at // bar for 1-2 seconds max PT-OP-J Posture/Palpation/Skin Start: 12/23/21 17:38 Freq: Status: Active Protocol: Document 04/03/22 16:03 DCW (Rec: 04/03/22 17:24 DCW [id number]) Posture Evaluation Comments Posture Comments Pt sacral sits in wheel chair, and per reports, in recliner and bed at home. PT-OP-M Strength Start: 12/23/21 17:38 Freq: Status: Active Protocol: Document 04/03/22 16:03 DCW (Rec: 04/03/22 17:24 DCW [id number]) Hip Strength Hip Manual Muscle Testing B Flexion (L2) 3+ Fair+ Abduction 4- Good- Adduction 3+ Fair+ Knee Strength Knee Manual Muscle Testing B Flexion (S2) 3+ Fair+ Extension (L3) 3+ Fair+ Ankle/Foot Strength Ankle and Foot Manual Muscle Testing B Dorsiflexion (L4) 3+ Fair+ Plantarflexion (S1) 3- Fair- Inversion 3+ Fair+ Eversion (S1) 3+ Fair+ PT-OP-Q Treatments Start: 12/23/21 17:38 Freq: Status: Active Protocol: Document 05/21/22 16:00 DCW (Rec: 05/21/22 16:50 DCW [id number]) Cardio Equipment Upper Body Ergometer (UBE) Duration (Minutes) 6 RPM 60 Seat Position w/c Height 2.5 Other fwd/bwd Therapeutic Exercises Sitting Exercises Seated Crunches Sitting Exercise Name Forward crunch against resistance Resistance Lv 3 Equipment Used T-band Balloon Volley Sitting Exercise Name Balloon Volley Side bilateral Resistance 5# weights on wrists Elbow extension Sitting Exercise Name Elbow extension Side bilateral Resistance TB 3 Comments arm rests removed Marching Sitting Exercise Name Marching Side bilateral Resistance 5# Chest press Sitting Exercise Name Chest press Side bilateral Resistance PVC /c 5# Biceps Curls Sitting Exercise Name Curls Side bilateral Resistance PVC /c 5# Rows Sitting Exercise Name Rows Side bilateral Resistance TB 3 seated hip extension Sitting Exercise Name seated hip extension Side bilateral Resistance Lv 3 resisted hip abduction Sitting Exercise Name resisted hip abduction Side bilateral Resistance TB 3 resisted DF Sitting Exercise Name 4-way ankle flexion Side bilateral Resistance TB3 heel raise Sitting Exercise Name heel raise Side bilateral Resistance AROM Equipment Used 5# Reps/Minutes x10 HS curl Sitting Exercise Name HS curl Side bilateral Resistance TB3 Reps/Minutes x10 LAQ Sitting Exercise Name LAQ Side bilateral Resistance 5# Reps/Minutes x10 Therapeutic Activity Therapeutic Activity sit<->stand Name Sit<->stand at // bars Reps/Minutes 3x5 Comments Mod/max Ax1 /c gait belt PT-OP-T Assessment and Plan Start: 12/23/21 17:38 Freq: Status: Active Protocol: Document 05/21/22 16:00 DCW (Rec: 05/21/22 16:50 DCW [id number]) Physical Therapy Assessment Goals Three Impairment unable to transfer Fpc Goal (LTG) Pt will perform stand pivot transfer with FWW mod A x 1 LTG Duration 07/02/22 Two Impairment unable to stand Short Term Goal (STG) Pt will complete one rep sit to stand max A x 1 using FWW STG Duration 06/01/22 - Improving Bottle Inspector Goal (LTG) Pt will stand using FWW mod A x 1 for 60 seconds LTG Duration 07/02/22 One Impairment LE weakness Fpc Goal (LTG) Ankle and knee MMT improves to 4-/5 bilaterally. Hip MMT improves to 4/5 bilaterally. LTG Duration 07/02/22 - Improving Assessment Summary Assessment Pt tolerated treatment fairly well today, able to perform slightly more activities within the same time limit, did not require any rest breaks. Physical Therapy Plan Frequency and Duration Frequency of Treatment 2x/Week Plan of Care Start Date 04/03/22 Plan of Care End Date 07/02/22 Therapeutic Interventions Therapeutic Interventions Aquatic Therapy,Balance Training,Coordination Training ,Gait Training,Home Exercise Program,Manual Therapy, Neuromuscular Re-education, Patient/Caregiver Education, Self-Care/Home Management,Soft Tissue Mobilization, Therapeutic Activities, Therapeutic Exercises, Wheelchair Management Modalities Cold Pack/Ice Massage,Hot Packs Next Visit Focus/Plan Next Note Type Treatment Note Next Visit Plan Progress seated fwd weightshifting w/ UE on thighs instead of // bars. POC: LE strengthening in seated position. Progress UE strength. Initiate pre- standing progression - weightbearing.
--- NOTE | 2022-06-03 16:58 | PT.OTN ---
Current Diagnoses Multiple sclerosis (06/03/22) Personal history of (healed) traumatic fracture (06/03/22) Physical Therapy Treatment Note PT-OP-A Visit Information Start: 12/23/21 17:38 Freq: Status: Active Protocol: Document 06/03/22 16:00 DCW (Rec: 06/03/22 16:58 DCW [id number]) Out-Patient Physical Therapy Visit Information Visit Information Visit Type Treatment Note Visit Start Time 16:00 Visit Stop Time 16:45 Total Visit Minutes 45 Visit Number 19 Number of ACCOUNT SUPPORT MANAGER Visits 0 Evaluation Information Evaluation Date 12/25/21 Precautions Precautions not ambulatory PT-OP-B Current Condition Start: 12/23/21 17:38 Freq: Status: Active Protocol: Document 12/25/21 16:45 AW (Rec: 12/25/21 17:16 AW [id number]) Current Condition History of Current Condition Onset Date multi-year history Current Complaints MS; bilateral knee pain; generalized weakness and impaired mobility History of Current Condition Sabiha lives at a local assisted living. She is confused and does not know why she is here. Her sister arrives longterm through this assessment and notes pt currently has a UTI which likely increases her confusion . Pt is mostly in bed during the day. She gets her meals in bed or in her recliner. Her chair puts her in a flexed position. Facility staff use a melissa lift to transfer her. Pt and her sister believe she was able to transfer with FWW and assist about a year ago. She has a supportive sister ( Shaina) and brother in law who live nearby. Sabiha receives total assist for ADL' s including dressing, bathing, and pt uses disposable briefs and gets changed in bed or in her recliner. Pandemic restrictions severely reduced her activity level. Prior Treatments and Tests Pt has worked with PT at this clinic over the years. At last discharge, she was able to complete sit to assistant store manager trainee the parallel bars min A x 1. Treatment Goals Patient/Caregiver Goals Stand and transfer with a walker. Especially would like to be able to transfer in and out of a [employer] van to be able to go for a drive with family. Prior Functional Status Baseline Function- ADL's Needs Assist Baseline Function- Mobility Needs Assist Baseline Function- Gait Pt is not ambulatory. Baseline Function- Other Per prior PT notes, pt was able to sit<>stand using parallel bars min A x 1 ~9 months ago. Current Functional Impairments (Reported) Functional Limitations- Mobility/Gait Pt requires melissa lift for transfers. Unable to stand with max A x 2 Personal Factors Other Personal Factors That May Effect MS, cognitive impairment, and Therapy/Recovery chronicity of deficits will be barriers to rehab. Pt does have supportive family who can assist her to complete exercise at home. PT-OP-C Subjective Start: 12/23/21 17:38 Freq: Status: Active Protocol: Document 06/03/22 16:00 DCW (Rec: 06/03/22 16:58 DCW [id number]) OP-PT Subjective Patient Comments Patient Comments Pt's sister notes that at pt's CUSTODIAL, they have stopped using the Melissa lift on her all the time, they feel she is able to assist more with transfers recently. PT-OP-F Manual Assessment Start: 12/23/21 17:38 Freq: Status: Active Protocol: Document 04/03/22 16:03 DCW (Rec: 04/03/22 17:24 DCW [id number]) Manual Assessments Joint Mobility Assessment Joint Mobility Assessment Left knee laxity and pain with valgus-directed force PT-OP-G Mobility & Gait Start: 12/23/21 17:38 Freq: Status: Active Protocol: Document 04/03/22 16:03 DCW (Rec: 04/03/22 17:24 DCW [id number]) OP Mobility Evaluation Transfers Sit to Stand Max Ax1 /c UE use of // bars. 3 sets of 5 OP Gait Assessment Comments Gait Comments Unable to ambulate. Stands at // bar for 1-2 seconds max PT-OP-J Posture/Palpation/Skin Start: 12/23/21 17:38 Freq: Status: Active Protocol: Document 04/03/22 16:03 DCW (Rec: 04/03/22 17:24 DCW [id number]) Posture Evaluation Comments Posture Comments Pt sacral sits in wheel chair, and per reports, in recliner and bed at home. PT-OP-M Strength Start: 12/23/21 17:38 Freq: Status: Active Protocol: Document 04/03/22 16:03 DCW (Rec: 04/03/22 17:24 DCW [id number]) Hip Strength Hip Manual Muscle Testing B Flexion (L2) 3+ Fair+ Abduction 4- Good- Adduction 3+ Fair+ Knee Strength Knee Manual Muscle Testing B Flexion (S2) 3+ Fair+ Extension (L3) 3+ Fair+ Ankle/Foot Strength Ankle and Foot Manual Muscle Testing B Dorsiflexion (L4) 3+ Fair+ Plantarflexion (S1) 3- Fair- Inversion 3+ Fair+ Eversion (S1) 3+ Fair+ PT-OP-Q Treatments Start: 12/23/21 17:38 Freq: Status: Active Protocol: Document 06/03/22 16:00 DCW (Rec: 06/03/22 16:58 [facility] [id number]) Cardio Equipment Upper Body Ergometer (UBE) Duration (Minutes) 6 RPM 60 Seat Position w/c Height 2.5 Other fwd/bwd Therapeutic Exercises Sitting Exercises Balloon Volley Sitting Exercise Name Balloon Volley Side bilateral Resistance 5# weights on wrists Elbow extension Sitting Exercise Name Elbow extension Side bilateral Resistance TB 3 Comments arm rests removed Marching Sitting Exercise Name Marching Side bilateral Resistance 5# Chest press Sitting Exercise Name Chest press Side bilateral Resistance PVC /c 5# Biceps Curls Sitting Exercise Name Curls Side bilateral Resistance PVC /c 5# Rows Sitting Exercise Name Rows Side bilateral Resistance TB 3 resisted hip abduction Sitting Exercise Name resisted hip abduction Side bilateral Resistance TB 3 resisted DF Sitting Exercise Name 4-way ankle flexion Side bilateral Resistance TB3 heel raise Sitting Exercise Name heel raise Side bilateral Resistance AROM Equipment Used 5# Reps/Minutes x10 HS curl Sitting Exercise Name HS curl Side bilateral Resistance TB3 Reps/Minutes x10 LAQ Sitting Exercise Name LAQ Side bilateral Resistance 5# Reps/Minutes x10 Therapeutic Activity Therapeutic Activity sit<->stand Name Sit<->stand at // bars Reps/Minutes 3x5 Comments Mod/max Ax1 /c gait belt PT-OP-T Assessment and Plan Start: 12/23/21 17:38 Freq: Status: Active Protocol: Document 06/03/22 16:00 DCW (Rec: 06/03/22 16:58 [facility] [id number]) Physical Therapy Assessment Goals Three Impairment unable to transfer Nursing Home Goal (LTG) Pt will perform stand pivot transfer with FWW mod A x 1 LTG Duration 07/02/22 Two Impairment unable to stand Short Term Goal (STG) Pt will complete one rep sit to stand max A x 1 using FWW STG Duration 06/01/22 - Improving Nursing Home Goal (LTG) Pt will stand using FWW mod A x 1 for 60 seconds LTG Duration 07/02/22 One Impairment LE weakness Nursing Home Goal (LTG) Ankle and knee MMT improves to 4-/5 bilaterally. Hip MMT improves to 4/5 bilaterally. LTG Duration 07/02/22 - Improving Assessment Summary Assessment Pt started out with strong sit <->stand transfers, but after the first two or three, suddenly required significantly more assistance. Physical Therapy Plan Frequency and Duration Frequency of Treatment 2x/Week Plan of Care Start Date 04/03/22 Plan of Care End Date 07/02/22 Therapeutic Interventions Therapeutic Interventions Aquatic Therapy,Balance Training,Coordination Training ,Gait Training,Home Exercise Program,Manual Therapy, Neuromuscular Re-education, Patient/Caregiver Education, Self-Care/Home Management,Soft Tissue Mobilization, Therapeutic Activities, Therapeutic Exercises, Wheelchair Management Modalities Cold Pack/Ice Massage,Hot Packs Next Visit Focus/Plan Next Note Type Treatment Note Next Visit Plan Progress seated fwd weightshifting w/ UE on thighs instead of // bars. POC: LE strengthening in seated position. Progress UE strength. Initiate pre- standing progression - weightbearing.
--- NOTE | 2023-02-18 12:00 | PT.OPDS ---
Current Diagnoses Multiple sclerosis (06/03/22) Personal history of (healed) traumatic fracture (06/03/22) Visit Care Team Role Provider Type Teri Singh MD Attending Provider Physician Family Provider Primary Care Provider Referring Provider Specialty: [facility] Address: [address] [place] [address], [id number] Phone: Fax: Email: [email or web address] Visit Number Visit Number 19 Discharge Summary PT-OP-B Current Condition Start: 12/23/21 17:38 Freq: Status: Active Protocol: Document 12/25/21 16:45 AW (Rec: 12/25/21 17:16 AW [id number]) Current Condition History of Current Condition Onset Date multi-year history Current Complaints MS; bilateral knee pain; generalized weakness and impaired mobility History of Current Condition Sabiha lives at a local assisted living. She is confused and does not know why she is here. Her sister arrives prison through this assessment and notes pt currently has a UTI which likely increases her confusion . Pt is mostly in bed during the day. She gets her meals in bed or in her recliner. Her chair puts her in a flexed position. Facility staff use a alvina lift to transfer her. Pt and her sister believe she was able to transfer with FWW and assist about a year ago. She has a supportive sister ( Shaina) and brother in law who live nearby. Sabiha receives total assist for ADL' s including dressing, bathing, and pt uses disposable briefs and gets changed in bed or in her recliner. Pandemic restrictions severely reduced her activity level. Prior Treatments and Tests Pt has worked with PT at this clinic over the years. At last discharge, she was able to complete sit to investigation officer the parallel bars min A x 1. Treatment Goals Patient/Caregiver Goals Stand and transfer with a walker. Especially would like to be able to transfer in and out of a [employer] van to be able to go for a drive with family. Prior Functional Status Baseline Function- ADL's Needs Assist Baseline Function- Mobility Needs Assist Baseline Function- Gait Pt is not ambulatory. Baseline Function- Other Per prior PT notes, pt was able to sit<>stand using parallel bars min A x 1 ~9 months ago. Current Functional Impairments (Reported) Functional Limitations- Mobility/Gait Pt requires alvina lift for transfers. Unable to stand with max A x 2 Personal Factors Other Personal Factors That May Effect MS, cognitive impairment, and Therapy/Recovery chronicity of deficits will be barriers to rehab. Pt does have supportive family who can assist her to complete exercise at home. PT-OP-C Subjective Start: 12/23/21 17:38 Freq: Status: Active Protocol: Document 06/03/22 16:00 DCW (Rec: 06/03/22 16:58 DCW [id number]) OP-PT Subjective Patient Comments Patient Comments Pt's sister notes that at pt's [facility], they have stopped using the Alvina lift on her all the time, they feel she is able to assist more with transfers recently. PT-OP-F Manual Assessment Start: 12/23/21 17:38 Freq: Status: Active Protocol: Document 04/03/22 16:03 DCW (Rec: 04/03/22 17:24 DCW [id number]) Manual Assessments Joint Mobility Assessment Joint Mobility Assessment Left knee laxity and pain with valgus-directed force PT-OP-G Mobility & Gait Start: 12/23/21 17:38 Freq: Status: Active Protocol: Document 04/03/22 16:03 DCW (Rec: 04/03/22 17:24 DCW [id number]) OP Mobility Evaluation Transfers Sit to Stand Max Ax1 /c UE use of // bars. 3 sets of 5 OP Gait Assessment Comments Gait Comments Unable to ambulate. Stands at // bar for 1-2 seconds max PT-OP-J Posture/Palpation/Skin Start: 12/23/21 17:38 Freq: Status: Active Protocol: Document 04/03/22 16:03 DCW (Rec: 04/03/22 17:24 DCW [id number]) Posture Evaluation Comments Posture Comments Pt sacral sits in wheel chair, and per reports, in recliner and bed at home. PT-OP-M Strength Start: 12/23/21 17:38 Freq: Status: Active Protocol: Document 04/03/22 16:03 DCW (Rec: 04/03/22 17:24 DCW [id number]) Hip Strength Hip Manual Muscle Testing B Flexion (L2) 3+ Fair+ Abduction 4- Good- Adduction 3+ Fair+ Knee Strength Knee Manual Muscle Testing B Flexion (S2) 3+ Fair+ Extension (L3) 3+ Fair+ Ankle/Foot Strength Ankle and Foot Manual Muscle Testing B Dorsiflexion (L4) 3+ Fair+ Plantarflexion (S1) 3- Fair- Inversion 3+ Fair+ Eversion (S1) 3+ Fair+ PT-OP-T Assessment and Plan Start: 12/23/21 17:38 Freq: Status: Active Protocol: Document 02/18/23 11:59 DCW (Rec: 02/18/23 12:00 DCW [id number]) Physical Therapy Assessment Assessment Summary Assessment Pt returning for services with a new referral, this case discharged at this time. Physical Therapy Plan Discharge Physical Therapy Discharge Reasons No Longer Attending PT
== END 2023-02-20 09:37 | disposition home or self-care (01) ==
LOC: PHYS 16:00
PROVIDERS: Family Provider Family Medicine; PCP Family Medicine; Referring Provider Family Medicine; Visit Provider Family Medicine
DX: Z87.81 Personal history of (healed) traumatic fracture (principal); G35 Multiple sclerosis
CPT/HCPCS: 97110; 97162; 97530

== ENCOUNTER 2022-08-04 12:37 | Inpatient (IN) | payer OTHER, SELFPAY ==
[2022-08-04] VITALS (29 sets, daily range): BP systolic 107–168; BP diastolic 55–122; PULSE 93–116; RESP 16–49; TEMP 34.7–37.1; O2SAT 89–98; BMI 32.1; BMI 36.8
[2022-08-04 13:54] LABS: Add Manual Diff / Slide Review NO; Basophils Absolute Auto 0 /uL (0-100); Basophils Percent Auto 0.1 % (0-2); Eosinophils Absolute Auto 0 /uL (0-450); Hematocrit 45.9 % (36-46); Hemoglobin 15.2 g/dL (12.0-16.0); Lymphocytes Absolute Auto 600 /uL (1100-4500); Lymphocytes Percent Auto 3.2 % (25-40); Mean Corpuscular Hemoglobin 30.2 PG (26-34); Mean Corpuscular Volume 91.5 fL (80-100); Monocytes Absolute Auto 600 /uL (0-900); Monocytes Percent Auto 3.2 % (3-14); Neutrophils Absolute Auto 17700 /uL (1500-7000); Neutrophils Percent Auto 93.5 % (50-75); Platelet Count 204 X10^3/uL (150-400); Red Blood Cell Count 5.02 X10^6/uL (4.0-5.2); Red Cell Distribution Width 14.9 % (11.6-14.8); White Blood Cell Count 18.9 X10^3/uL (4.5-11.0)
--- NOTE | 2022-08-04 14:06 | ED_ITS ---
HPI - Abdominal Pain General Chief Complaint: Abdominal Pain Stated Complaint: Stomach pain Time Seen by Provider: 08/04/22 13:28 Mode of arrival: Wheelchair History of Present Illness HPI narrative: Patient is a 67-year-old female history of multiple sclerosis wheelchair-bound frequent UTIs and uses a catheter presents today with abdominal pain. And maybe some left leg pain. She does reside over at [facility]. She overall is extremely poor historian. Related Data Home Medications Medication Instructions Recorded Confirmed VITAMIN D (Vitamin D3) 2,000 unit PO QDAY ##0 02/21/16 08/04/22 ibuprofen 200 mg tablet 400 mg PO Q4HP PRN Pain (Scale 02/21/16 08/04/22 Score 4-6) ##0 Saccharomyces boulardii 250 mg 250 mg PO DAILY 08/04/22 08/04/22 capsule (Florastor) calcium carbonate 600 mg-vitamin 1 cap PO QDAY 08/04/22 08/04/22 D3 10 mcg (400 unit) capsule fluoxetine 40 mg capsule 40 mg PO DAILY 08/04/22 08/04/22 quetiapine 25 mg tablet 25 mg PO BID 08/04/22 08/04/22 trazodone 50 mg tablet 50 mg PO BEDTIME 08/04/22 08/04/22 Previous Rx's Medication Instructions Recorded cyanocobalamin (vitamin B-12) 1,000 mcg PO QDAY #30 tabs 02/02/18 1,000 mcg tablet,extended release Allergies Allergy/AdvReac Type Severity Reaction Status Date / Time Sulfa (Sulfonamide Allergy Severe Rash, Verified 08/04/22 12:56 Antibiotics) itching sulfadiazine Allergy Mild RASH Verified 08/04/22 12:56 Review of Systems Review of Systems ROS Unobtainable: All systems reviewed & are unremarkable except as noted in HPI and below 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) Depression (Unknown) Frequent UTI (Unknown) History of fracture (2019) Hyperlipidemia (Unknown) Multiple sclerosis (1971) Vitamin B deficiency Family History Sister Age: 61 Fibromyalgia Social History household members: none Smoking Status: Never smoker alcohol intake: current Smoking Status: Never smoker alcohol intake frequency: other Substance Use Type: does not use Exam Initial Vital Signs Initial Vital Signs: Vital Signs Temperature 94.4 F L 08/04/22 12:52 Pulse Rate 116 H 08/04/22 12:52 Respiratory Rate 16 08/04/22 12:52 Blood Pressure 167/79 H 08/04/22 12:52 Pulse Oximetry 95 08/04/22 12:52 Oxygen Delivery Method 08/04/22 12:52 GENERAL: Alert 67-year-old female awake and HEENT: Head atraumatic,EOMI, pupils reactive, face symmetric, [moist] mucous membranes CARDIOVASCULAR: Regular rate and rhythm without murmurs, rubs or gallops. RESPIRATORY: Breath sounds equal bilaterally, no wheezes rales or rhonchi. ABDOMEN: Soft, nontender. Normoactive bowel sounds all 4 quadrants. No guarding or rebound. EXTREMITIES: Normal range of motion, no clubbing or edema. Neurovascularly intact NEUROLOGICAL: Can move lower extremities but overall very weak SKIN: Warm, dry, no laceration, no petechiae, no rashes or lesions. Course Orders Ordered: ED Orders 08/04/22 12:03 Troponin & CK Cardiac Panel Stat 08/04/22 12:56 EKG-12 Lead Stat 08/04/22 13:43 Complete Blood Count AUTO DIFF Stat Comprehensive Metabolic Panel Stat Lactate (Lactic Acid) Stat Lipase Stat 08/04/22 14:40 UA Complete [Urinalysis and Microscopic] Stat Urine Culture Stat 08/04/22 15:03 Blood Culture Stat Procalcitonin Stat 08/04/22 15:08 Covid-19 + FLU A/B + RSV - PCR Stat 08/04/22 15:15 CT abdomen pelvis w con Stat 08/04/22 17:02 Consult to Physician Stat Sodium Chloride (Normal Saline 0.9%) 2,469.81 mls @ 823.27 mls/hr 30 ml/kg infuse over 3 hr (2469.81 ml) IV NOW ONE Stop: 08/04/22 20:01 Last Admin: 08/04/22 17:50 Dose: Not Given Documented By: BS Ondansetron HCl (Ondansetron 4 Mg Odt) 4 mg PO NOW PRN PRN Reason: Nausea And Vomiting Ondansetron HCl (Ondansetron 4 Mg/2 Ml Inj) 4 mg IV NOW PRN PRN Reason: Nausea And Vomiting Last Admin: 08/04/22 16:05 Dose: 4 mg Documented By: ALICIA Discontinued Medications Sodium Chloride (Normal Saline 0.9%) 1,000 mls @ 1,000 mls/hr IV BOLUS ONE Stop: 08/04/22 15:05 Last Infusion: 08/04/22 15:51 Dose: 0 mls/hr Documented By: Admin: 08/04/22 14:23 Dose: 1,000 mls/hr Documented By: ALICIA Piperacillin Sod/Tazobactam (Sod 4.5 gm/ Sodium Chloride) 100 mls @ 200 mls/hr IV NOW ONE Stop: 08/04/22 14:40 Last Infusion: 08/04/22 16:45 Dose: 0 mls/hr Documented By: Admin: 08/04/22 15:50 Dose: 200 mls/hr Documented By: ALICIA Sodium Chloride (Normal Saline 0.9%) 1,000 mls @ 1,000 mls/hr IV BOLUS ONE Stop: 08/04/22 15:38 Last Infusion: 08/04/22 18:18 Dose: 1,000 mls/hr Documented By: Infusion: 08/04/22 18:07 Dose: 0 mls/hr Documented By: Infusion: 08/04/22 17:22 Dose: 1,000 mls/hr Documented By: Infusion: 08/04/22 15:51 Dose: 0 mls/hr Documented By: Admin: 08/04/22 15:50 Dose: 1,000 mls/hr Documented By: ALICIA Sodium Chloride (Normal Saline 0.9%) 469.81 mls @ 823.27 mls/hr IV BOLUS ONE Stop: 08/04/22 18:20 Last Infusion: 08/04/22 18:18 Dose: 823.27 mls/hr Documented By: Infusion: 08/04/22 18:07 Dose: 0 mls/hr Documented By: Admin: 08/04/22 17:50 Dose: 823.27 mls/hr Documented By: ALICIA Ketorolac Tromethamine (Ketorolac 30 Mg/Ml Vial) 15 mg IV NOW ONE Stop: 08/04/22 16:02 Last Admin: 08/04/22 16:05 Dose: 15 mg Documented By: ALICIA Sodium Chloride (Sodium Chloride 0.9% 100 Ml) 469.81 ml IV NOW ONE Stop: 08/04/22 17:42 Last Admin: 08/04/22 17:42 Dose: Not Given Documented By: ALICIA Vital Signs Vital signs: Vital Signs - 8 hr 08/04/22 12:52 08/04/22 14:08 08/04/22 14:09 Temperature 94.4 F L Pulse Rate 116 H 109 H 110 H Respiratory Rate 16 27 H 24 Blood Pressure 167/79 H Pulse Oximetry 95 93 93 Oxygen Delivery Method Room Air Oxygen Flow Rate 08/04/22 14:09 08/04/22 14:30 08/04/22 14:30 Temperature Pulse Rate 107 H Respiratory Rate 35 H Blood Pressure 153/69 H 153/71 H Pulse Oximetry 93 Oxygen Delivery Method Oxygen Flow Rate 08/04/22 15:00 08/04/22 15:00 08/04/22 15:32 Temperature Pulse Rate 106 H 101 H Respiratory Rate 33 H Blood Pressure 141/64 H Pulse Oximetry 98 Oxygen Delivery Method Oxygen Flow Rate 08/04/22 15:33 08/04/22 15:33 08/04/22 16:00 Temperature Pulse Rate 101 H Respiratory Rate 22 Blood Pressure 137/71 148/113 H Pulse Oximetry 95 Oxygen Delivery Method Oxygen Flow Rate 08/04/22 16:00 08/04/22 16:10 08/04/22 16:10 Temperature Pulse Rate 109 H 103 H Respiratory Rate 30 H 29 H Blood Pressure 145/85 H Pulse Oximetry 91 91 Oxygen Delivery Method Oxygen Flow Rate 08/04/22 16:30 08/04/22 16:30 08/04/22 16:45 Temperature Pulse Rate 99 H 103 H Respiratory Rate 35 H 44 H Blood Pressure 161/122 H Pulse Oximetry 91 89 L Oxygen Delivery Method Room Air Room Air Oxygen Flow Rate 08/04/22 16:45 08/04/22 17:00 Temperature Pulse Rate 94 H Respiratory Rate 28 H Blood Pressure 168/98 H Pulse Oximetry 98 Oxygen Delivery Method Nasal Cannula Oxygen Flow Rate 2 MDM - Abdominal Pain Lab Data Result diagrams: 08/04/22 13:43 08/04/22 13:43 Labs: Lab Results 08/04/22 08/04/22 08/04/22 Range/Units 12:03 13:43 13:43 WBC 18.9 H (4.5-11.0) X10^3/uL RBC 5.02 (4.0-5.2) X10^6/uL Hgb 15.2 (12.0-16.0) g/dL Hct 45.9 (36-46) % MCV 91.5 (80-100) fL MCH 30.2 (26-34) PG MCHC 33.0 (30-36) % RDW 14.9 H (11.6-14.8) % Plt Count 204 (150-400) X10^3/uL Neut % (Auto) 93.5 H (50-75) % Lymph % (Auto) 3.2 L (25-40) % [place] % (Auto) 3.2 (3-14) % Eos % (Auto) 0.0 L (2-4) % Baso % (Auto) 0.1 (0-2) % Neut # (Auto) 23900 H (1539-0262) /uL Lymph # (Auto) 600 L (2951-4322) /uL [place] # (Auto) 600 (0-900) /uL Eos # (Auto) 0 (0-450) /uL Baso # (Auto) 0 (0-100) /uL Sodium 141 (137-145) mmol/L Potassium 4.1 (3.4-5.1) mmol/L Chloride 106 (98-107) mmol/L Carbon Dioxide 22 (22-32) mmol/L BUN 19 H (7-17) mg/dL Creatinine 0.97 (0.52-1.04) mg/dL Estimated GFR > 60 (>60) mL/min BUN/Creatinine Ratio 19.6 (6-22) Glucose 188 H (80-110) mg/dL Lactate (0.7-2.1) mmol/L Calcium 9.8 (8.4-10.2) mg/dL Total Bilirubin 0.6 (0.2-1.3) mg/dL AST 27 (14-36) IU/L ALT 28 (<35) IU/L Alkaline Phosphatase 87 (38-126) U/L Total Creatine Kinase 24 L (30-135) U/L CK-MB (CK-2) TNP CK-MB (CK-2) Rel Index TNP Troponin I < 0.012 (0.01-0.034) ng/mL Total Protein 7.1 (6.3-8.2) g/dL Albumin 3.9 (3.5-5.0) g/dL Globulin 3.2 (1.7-4.1) g/dL Albumin/Globulin Ratio 1.2 (1.0-2.8) Lipase 49 (23-300) U/L Procalcitonin (<0.5) ng/mL Urine Color Urine Appearance Urine pH (4.5-8.0) Ur Specific [place] (1.000-1.035) Urine Protein (Negative) Urine Glucose (UA) (Negative) g/dL Urine Ketones (NEGATIVE) Urine Occult Blood (Negative) Urine Nitrate (Negative) Urine Bilirubin (NEGATIVE) Urine Urobilinogen (0.2) E.U./dL Ur Leukocyte Esterase (NEGATIVE) Urine RBC (0-5/HPF) Urine WBC (0-5/HPF) Ur Squamous Epith Cells (0-5/HPF) Urine Bacteria (None) Ur Culture Indicated? SARS-CoV-2 (PCR) (Negative) Influenza A (RT-PCR) (NEGATIVE) Influenza B (RT-PCR) (NEGATIVE) RSV (PCR) (Negative) 08/04/22 08/04/22 08/04/22 Range/Units 13:43 14:40 15:03 WBC (4.5-11.0) X10^3/uL RBC (4.0-5.2) X10^6/uL Hgb (12.0-16.0) g/dL Hct (36-46) % MCV (80-100) fL MCH (26-34) PG MCHC (30-36) % RDW (11.6-14.8) % Plt Count (150-400) X10^3/uL Neut % (Auto) (50-75) % Lymph % (Auto) (25-40) % [place] % (Auto) (3-14) % Eos % (Auto) (2-4) % Baso % (Auto) (0-2) % Neut # (Auto) (9547-0459) /uL Lymph # (Auto) (5201-2973) /uL [place] # (Auto) (0-900) /uL Eos # (Auto) (0-450) /uL Baso # (Auto) (0-100) /uL Sodium (137-145) mmol/L Potassium (3.4-5.1) mmol/L Chloride (98-107) mmol/L Carbon Dioxide (22-32) mmol/L BUN (7-17) mg/dL Creatinine (0.52-1.04) mg/dL Estimated GFR (>60) mL/min BUN/Creatinine Ratio (6-22) Glucose (80-110) mg/dL Lactate 3.0 H (0.7-2.1) mmol/L Calcium (8.4-10.2) mg/dL Total Bilirubin (0.2-1.3) mg/dL AST (14-36) IU/L ALT (<35) IU/L Alkaline Phosphatase (38-126) U/L Total Creatine Kinase (30-135) U/L CK-MB (CK-2) CK-MB (CK-2) Rel Index Troponin I (0.01-0.034) ng/mL Total Protein (6.3-8.2) g/dL Albumin (3.5-5.0) g/dL Globulin (1.7-4.1) g/dL Albumin/Globulin Ratio (1.0-2.8) Lipase (23-300) U/L Procalcitonin 1.18 H (<0.5) ng/mL Urine Color Lt. yellow Urine Appearance Cloudy Urine pH 6.0 (4.5-8.0) Ur Specific [place] 1.020 (1.000-1.035) Urine Protein Negative (Negative) Urine Glucose (UA) Negative (Negative) g/dL Urine Ketones Negative (NEGATIVE) Urine Occult Blood 2+ H (Negative) Urine Nitrate Negative (Negative) Urine Bilirubin Negative (NEGATIVE) Urine Urobilinogen 0.2 (0.2) E.U./dL Ur Leukocyte Esterase 2+ H (NEGATIVE) Urine RBC 5-10/hpf H (0-5/HPF) Urine WBC 5-10/hpf H (0-5/HPF) Ur Squamous Epith Cells 1-5 /hpf (0-5/HPF) Urine Bacteria Few (2-10) H (None) Ur Culture Indicated? Specimen cultured SARS-CoV-2 (PCR) (Negative) Influenza A (RT-PCR) (NEGATIVE) Influenza B (RT-PCR) (NEGATIVE) RSV (PCR) (Negative) 08/04/22 08/04/22 Range/Units 15:08 16:24 WBC (4.5-11.0) X10^3/uL RBC (4.0-5.2) X10^6/uL Hgb (12.0-16.0) g/dL Hct (36-46) % MCV (80-100) fL MCH (26-34) PG MCHC (30-36) % RDW (11.6-14.8) % Plt Count (150-400) X10^3/uL Neut % (Auto) (50-75) % Lymph % (Auto) (25-40) % [place] % (Auto) (3-14) % Eos % (Auto) (2-4) % Baso % (Auto) (0-2) % Neut # (Auto) (3233-0624) /uL Lymph # (Auto) (9810-6672) /uL [place] # (Auto) (0-900) /uL Eos # (Auto) (0-450) /uL Baso # (Auto) (0-100) /uL Sodium (137-145) mmol/L Potassium (3.4-5.1) mmol/L Chloride (98-107) mmol/L Carbon Dioxide (22-32) mmol/L BUN (7-17) mg/dL Creatinine (0.52-1.04) mg/dL Estimated GFR (>60) mL/min BUN/Creatinine Ratio (6-22) Glucose (80-110) mg/dL Lactate 4.3 H* (0.7-2.1) mmol/L Calcium (8.4-10.2) mg/dL Total Bilirubin (0.2-1.3) mg/dL AST (14-36) IU/L ALT (<35) IU/L Alkaline Phosphatase (38-126) U/L Total Creatine Kinase (30-135) U/L CK-MB (CK-2) CK-MB (CK-2) Rel Index Troponin I (0.01-0.034) ng/mL Total Protein (6.3-8.2) g/dL Albumin (3.5-5.0) g/dL Globulin (1.7-4.1) g/dL Albumin/Globulin Ratio (1.0-2.8) Lipase (23-300) U/L Procalcitonin (<0.5) ng/mL Urine Color Urine Appearance Urine pH (4.5-8.0) Ur Specific [place] (1.000-1.035) Urine Protein (Negative) Urine Glucose (UA) (Negative) g/dL Urine Ketones (NEGATIVE) Urine Occult Blood (Negative) Urine Nitrate (Negative) Urine Bilirubin (NEGATIVE) Urine Urobilinogen (0.2) E.U./dL Ur Leukocyte Esterase (NEGATIVE) Urine RBC (0-5/HPF) Urine WBC (0-5/HPF) Ur Squamous Epith Cells (0-5/HPF) Urine Bacteria (None) Ur Culture Indicated? SARS-CoV-2 (PCR) Negative (Negative) Influenza A (RT-PCR) Flu a negative (NEGATIVE) Influenza B (RT-PCR) Flu b negative (NEGATIVE) RSV (PCR) Negative (Negative) Imaging Data CT scan - abdomen/pelvis: Radiologist's Impression: CT Scan Report Signed Patient: Sabiha Pierson MR#: [id number] : 1955 Acct:[id number] Age/Sex: 67 / F Date of Service: 08/04/22 Loc: ED Accession Number: [id number] ?? Procedure: CT abdomen pelvis w con Ordering Provider: Astrid Veliz D.O. PROCEDURE:? CT ABDOMEN PELVIS W CON ? INDICATIONS:? ab pain ? TECHNIQUE:? After the administration of intravenous contrast, axial sections acquired from the lung bases to the pubic symphysis.? Coronal and sagittal reformats were performed.? For radiation dose reduction, the following was used:? automated exposure control, adjustment of mA and/or kV according to patient size.? ? COMPARISON:? [facility], CT, ABDOMEN/PELVIS WITH CONTRAST, 02/21/2016, 1:22. ? FINDINGS:? Image quality:? Excellent.? ? Lung bases:? Unremarkable. Heart:? No significant findings. ? ABDOMEN: Liver:? Unremarkable.? ? Gallbladder:? Unremarkable.? ? Biliary ducts:? Unremarkable.? ? Pancreas:? Unremarkable.? ? Spleen:? Unremarkable.? ? Adrenal Glands:? Unremarkable.? ? Kidneys and Ureters:? Right kidney is within normal limits.? There is mild left renal enlargement and moderate left perinephric fat stranding.? Mild left hydronephrosis and left ureteral dilatation.? 2 mm distal left ureteral calculus. ? Stomach and Bowel:? Stomach, small bowel loops, and colon are unremarkable.? Appendix not seen.? No evidence of appendicitis.? Moderate fat stranding within the central mesenteric root, as before. Peritoneum:? No abnormal intraperitoneal fluid.? No free air.? ? Ventral Wall: ? No hernias.? Abdominal Nodes:? No retroperitoneal or mesenteric adenopathy by size criteria.? Vessels:? Aorta and inferior vena cava are normal in size.? ? PELVIS: Pelvic Organs:? Increased right adnexal cyst measuring 60 mm diameter. Bladder:? Decompressed.? Gerber catheter present. Pelvic Nodes: No enlarged lymph nodes.? Miscellaneous: No hernias are seen. ? ? ? Bones:? Unremarkable.? IMPRESSION:? 1. Distal left ureteral calculus associated with mild left hydronephrosis. 2. Mesenteritis. 3. Appendix not seen.? No evidence of appendicitis. 4. Increased right adnexal cyst.? Gynecological consultation recommended. ? ? Dictated by: Mily Villegas M.D. on 08/04/2022 at 16:05 ? ? ECG Data Interpretation: Sinus tachycardia rate 115 NC interval 176 QRS 80 QTC [address] changes PVC noted MDM Narrative Medical decision making narrative: Patient is 67-year-old female home urinary catheterizations and wheelchair-bound presents today with decreasing mental status found to have UTI and a left-sided 2 mm nephrolithiasis. There is very mild hydro on CT. She is leukocytosis 18.4 lactate of 3.0 actually worsens some fluid to 4.3. Procalcitonin elevated at 1.18. Vitals are stable over though her blood pressure is steadily decreasing. She is tachycardic and afebrile currently. Concern for sepsis. Sepsis orders are fluid along with Zosyn. 1615 Dr. Boyd urology updated on patient's symptoms and test results at this time nothing emergent for Urology to do without significant hydronephrosis. Agrees that if pressure can tolerate it start tamsulosin. 1630 Dr. Yanez updated on patient's symptoms test results Neurology recommendation and heavily accepts After fluids and antibiotics patient actually is re-evaluated and overall much more with it. Pain seems to be improved after Toradol. She is no significant sign of renal failure. She continues to get sepsis IV fluids. Her heart rate has improved. Not requiring vasopressors at this time. MDM CC: Abdominal pain confusion Complicating co-morbidities: MS wheelchair-bound frequent urinary catheterization Corroborating data: Chart Data collected from: [ ] Medical records reviewed: [ ] Differential considered: Sepsis, diverticulitis, bacteremia, for lithiasis, perforation, obstruction Exam documented above, pertinent findings include: Week confused Lab Test results independently reviewed as above. Pertinent findings: As described above Independently reviewed EKG as above Imaging studies independently reviewed: Consultations: Urology and hospitalist Treatments: Sepsis fluids and Zosyn Re-evaluations: Improved mental status Discussion: As above Diagnosis: Sepsis UTI nephrolithiasis Disposition: see below, along with detailed discharge instructions that have been reviewed with patient as well as indications for ED re-evaluation and additional outpatient follow up Discharge Plan Departure Patient Disposition: Admitted As Inpatient Clinical Impression: UTI (urinary tract infection), Sepsis, Kidney stone on left side Admit Date/Time: 08/04/22 17:18 Admit Provider: Yelitza Lagunas
[2022-08-04] MEDS: SODIUM CHLORIDE 0.9% 1,000 ML 1000 ML IV ×2 (14:23→15:50)
[2022-08-04 14:26] LABS: Alanine Aminotransferase 28 IU/L (<35); Albumin 3.9 g/dL (3.5-5.0); Albumin Globulin Ratio 1.2 (1.0-2.8); Alkaline Phosphatase 87 U/L (38-126); Aspartate Aminotransferase 27 IU/L (14-36); BUN Creatinine Ratio 19.6 (6-22); Bilirubin Total 0.6 mg/dL (0.2-1.3); Blood Urea Nitrogen 19 mg/dL (7-17); Calcium 9.8 mg/dL (8.4-10.2); Carbon Dioxide 22 mmol/L (22-32); Chloride 106 mmol/L (98-107); Estimated Glomerular Filt Rate > 60 mL/min (>60); Globulin 3.2 g/dL (1.7-4.1); Glucose 188 mg/dL (80-110); HEMOLYSIS 23 (0-50); Lipase 49 U/L (23-300); Potassium 4.1 mmol/L (3.4-5.1); Sodium 141 mmol/L (137-145); Total Protein 7.1 g/dL (6.3-8.2)
[2022-08-04 14:27] LABS: Troponin I < 0.012 ng/mL (0.01-0.034)
--- NOTE | 2022-08-04 15:15 | DI.CT.S_ITS ---
PROCEDURE: CT ABDOMEN PELVIS W CON INDICATIONS: ab pain TECHNIQUE: After the administration of intravenous contrast, axial sections acquired from the lung bases to the pubic symphysis. Coronal and sagittal reformats were performed. For radiation dose reduction, the following was used: automated exposure control, adjustment of mA and/or kV according to patient size. COMPARISON: [facility], CT, ABDOMEN/PELVIS WITH CONTRAST, 02/21/2016, 1:22. FINDINGS: Image quality: Excellent. Lung bases: Unremarkable. Heart: No significant findings. ABDOMEN: Liver: Unremarkable. Gallbladder: Unremarkable. Biliary ducts: Unremarkable. Pancreas: Unremarkable. Spleen: Unremarkable. Adrenal Glands: Unremarkable. Kidneys and Ureters: Right kidney is within normal limits. There is mild left renal enlargement and moderate left perinephric fat stranding. Mild left hydronephrosis and left ureteral dilatation. 2 mm distal left ureteral calculus. Stomach and Bowel: Stomach, small bowel loops, and colon are unremarkable. Appendix not seen. No evidence of appendicitis. Moderate fat stranding within the central mesenteric root, as before. Peritoneum: No abnormal intraperitoneal fluid. No free air. Ventral Wall: No hernias. Abdominal Nodes: No retroperitoneal or mesenteric adenopathy by size criteria. Vessels: Aorta and inferior vena cava are normal in size. PELVIS: Pelvic Organs: Increased right adnexal cyst measuring 60 mm diameter. Bladder: Decompressed. Gerber catheter present. Pelvic Nodes: No enlarged lymph nodes. Miscellaneous: No hernias are seen. Bones: Unremarkable. IMPRESSION: 1. Distal left ureteral calculus associated with mild left hydronephrosis. 2. Mesenteritis. 3. Appendix not seen. No evidence of appendicitis. 4. Increased right adnexal cyst. Gynecological consultation recommended. Dictated by: Mily Villegas M.D. on 08/04/2022 at 16:05 Approved by: Mily Villegas M.D. on 08/04/2022 at 16:07
[2022-08-04 15:18] LABS: Bilirubin Urine UA NEGATIVE (NEGATIVE); Color Urine UA LT. YELLOW; Glucose Urine UA NEGATIVE (Negative); Ketones Urine UA NEGATIVE (NEGATIVE); Leukocyte Esterase Urine UA 2+ (NEGATIVE); Nitrite Urine UA NEGATIVE (Negative); Occult Blood Urine UA 2+ (Negative); Protein Urine UA NEGATIVE (Negative); Urobilinogen Urine UA 0.2 E.U./dL (0.2)
[2022-08-04 15:27] LABS: Appearance Urine UA CLOUDY
[2022-08-04 15:28] LABS: Creatine Kinase 24 U/L (30-135)
[2022-08-04 15:46] LABS: Bacteria Urine Few (2-10); Culture Indicated Urine Specimen Cultured; RBC Urine 5-10/HPF (0-5/HPF); Squamous Epithelial Cell Urine 1-5 /HPF (0-5/HPF); WBC Urine 5-10/HPF (0-5/HPF)
[2022-08-04 15:46] LABS: Procalcitonin 1.18 ng/mL (<0.5)
[2022-08-04] MEDS: PIPERACILLIN/TAZO 4.5 GM in SODIUM CHLORIDE 0.9% 100 ML IV (15:50)
[2022-08-04] MEDS: KETOROLAC 30 MG/ML VIAL 15 MG IV (16:05)
[2022-08-04] MEDS: ONDANSETRON 4 MG/2 ML INJ IV (16:05)
[2022-08-04 16:06] LABS: Influenza A - CEPHEID Flu A NEGATIVE (NEGATIVE); Influenza B - CEPHEID Flu B NEGATIVE (NEGATIVE); Respiratory Syncytial Virus Negative (Negative)
[2022-08-04 16:08] LABS: COVID-19 CEPHEID 4-PLEX PCR Negative (Negative)
[2022-08-04 16:09] LABS: Reflexed Lactate in 2 Hours Y
[2022-08-04 16:49] LABS: Lactate 2HR (Lactic Acid Rflx) 4.3 mmol/L (0.7-2.1)
[2022-08-04] MEDS: SODIUM CHLORIDE 0.9% 823.27 ML IV (17:50)
[2022-08-04] MEDS: ONDANSETRON 4 MG ODT PO (19:42)
[2022-08-04] MEDS: cefTRIAXone 2,000 MG in SODIUM CHLORIDE 0.9% 100 ML 200 MG IV (21:00)
[2022-08-04] MEDS: DOCUSATE 100 MG CAPSULE PO (21:01)
--- NOTE | 2022-08-04 21:01 | P.HP_ITS ---
History of Present Illness History of Present Illness Date Patient Seen: 08/04/22 Time Patient Seen: 21:02 Chief complaint: Stomach pain Narrative: Sabiha Pierson is a 67 y.o. female with secondary progressive multiple sclerosis who reportedly self catheterizes herself presented to the Ed w/abdominal pain. States she does not know why she is here in the unit. Denies fatigue, headache, n/v but then state a little and has a emesis bag next to her, denies shortness of breath, abdominal pain, dysurea, diarrhea or constipation. She states she has slight case of MS, uses a wheelchair because it is easier. She is unable to provide any history and appears confused. CT of the abdomen and pelvis reports a distal left ureteral calculus with mild left hydronephrosis and an increased right adnexal cyst recommending gynecological follow-up. She is afebrile, blood pressure 131/68 heart rate 109 respiratory rate 20 oxygen saturation of 91% on 2 L she weighs 94.5 kg with a BMI of 36.8. She does have an elevated white count at 18 with a left shift, glucose was 188 lactate was 4.3, procalcitonin was 1.18. UA was positive for a UTI and COVID-19 PCR is negative. 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) Depression (Unknown) Frequent UTI (Unknown) History of fracture (2019) Hyperlipidemia (Unknown) Multiple sclerosis (1972) Vitamin B deficiency Family & Social History Family History Sister Age: 61 Fibromyalgia Social History: household members none Prior Living Arrangements Assisted Living Safety & Behavioral: Feels Safe in Current Yes Environment Been Physically Hurt or No Threatened By a Person Tobacco & Substance use: Smoking Status Never smoker alcohol intake current alcohol intake frequency holiday/special occasion Substance Use Type does not use Meds Home Medications and Allergies Home Medications Medication Instructions Recorded Confirmed Type VITAMIN D (Vitamin D3) 2,000 unit PO QDAY ##0 02/21/16 08/04/22 History ibuprofen 200 mg tablet 400 mg PO Q4HP PRN Pain (Scale 02/21/16 08/04/22 History Score 4-6) ##0 cyanocobalamin (vitamin B-12) 1,000 mcg PO QDAY #30 tabs 02/02/18 08/04/22 Rx 1,000 mcg tablet,extended release Saccharomyces boulardii 250 mg 250 mg PO DAILY 08/04/22 08/04/22 History capsule (Florastor) calcium carbonate 600 mg-vitamin 1 cap PO QDAY 08/04/22 08/04/22 History D3 10 mcg (400 unit) capsule fluoxetine 40 mg capsule 40 mg PO DAILY 08/04/22 08/04/22 History quetiapine 25 mg tablet 25 mg PO BID 08/04/22 08/04/22 History trazodone 50 mg tablet 50 mg PO BEDTIME 08/04/22 08/04/22 History Allergies Allergy/AdvReac Type Severity Reaction Status Date / Time Sulfa (Sulfonamide Allergy Severe Rash, Verified 08/04/22 12:56 Antibiotics) itching sulfadiazine Allergy Mild RASH Verified 08/04/22 12:56 Review of Systems Review of Systems ROS: Yes All systems reviewed with the patient and are negative except as otherwise documented Exam Vital Signs (past 8 hours): - 08/04/22 14:08 08/04/22 14:09 08/04/22 14:09 Pulse Rate 109 H 110 H Respiratory Rate 27 H 24 Blood Pressure 153/69 H Pulse Oximetry 93 93 Oxygen Delivery Method Oxygen Flow Rate 08/04/22 14:30 08/04/22 14:30 08/04/22 15:00 Pulse Rate 107 H Respiratory Rate 35 H Blood Pressure 153/71 H 141/64 H Pulse Oximetry 93 Oxygen Delivery Method Oxygen Flow Rate 08/04/22 15:00 08/04/22 15:32 08/04/22 15:33 Pulse Rate 106 H 101 H 101 H Respiratory Rate 33 H 22 Blood Pressure Pulse Oximetry 98 95 Oxygen Delivery Method Oxygen Flow Rate 08/04/22 15:33 08/04/22 16:00 08/04/22 16:00 Pulse Rate 109 H Respiratory Rate 30 H Blood Pressure 137/71 148/113 H Pulse Oximetry 91 Oxygen Delivery Method Oxygen Flow Rate 08/04/22 16:10 08/04/22 16:10 08/04/22 16:30 Pulse Rate 103 H Respiratory Rate 29 H Blood Pressure 145/85 H 161/122 H Pulse Oximetry 91 Oxygen Delivery Method Oxygen Flow Rate 08/04/22 16:30 08/04/22 16:45 08/04/22 16:45 Pulse Rate 99 H 103 H Respiratory Rate 35 H 44 H Blood Pressure 168/98 H Pulse Oximetry 91 89 L Oxygen Delivery Method Room Air Room Air Oxygen Flow Rate 08/04/22 17:00 08/04/22 17:21 08/04/22 17:21 Pulse Rate 94 H 97 H Respiratory Rate 28 H 30 H Blood Pressure 121/76 Pulse Oximetry 98 97 Oxygen Delivery Method Nasal Cannula Oxygen Flow Rate 2 08/04/22 17:30 08/04/22 17:30 Pulse Rate 94 H Respiratory Rate 30 H Blood Pressure 122/57 L Pulse Oximetry 98 Oxygen Delivery Method Nasal Cannula Oxygen Flow Rate 2 Oxygen Delivery Method Nasal Cannula Oxygen Flow Rate 2 Narrative Exam Narrative: Gen: Alert, oriented, obese 59 y.o. female, NAD HEENT: normocephalic, atraumatic, conjunctiva clear, sclera non-icteric, oral mucosa pink and moist Neck: supple, full ROM, no JVD, trachea is midline Resp: Lungs CTA, non-labored breathing CV: RRR, no murmur or rubs Abd: soft, non-tender, normoactive BTs Skin: no lesions or rashes, dry and intact Neuro: Alert and oriented X 4 w/no focal deficits. Speech clear and coherent. Extremities: Weak and wheelchair-bound, negative Ortiz?s sign Psyche: normal mood and affect. Objective Labs 08/04/22 13:43 08/04/22 13:43 Labs: Laboratory Results - last 24 hr 08/04/22 08/04/22 08/04/22 12:03 13:43 13:43 WBC 18.9 H RBC 5.02 Hgb 15.2 Hct 45.9 MCV 91.5 MCH 30.2 MCHC 33.0 RDW 14.9 H Plt Count 204 Neut % (Auto) 93.5 H Lymph % (Auto) 3.2 L [place] % (Auto) 3.2 Eos % (Auto) 0.0 L Baso % (Auto) 0.1 Neut # (Auto) 12154 H Lymph # (Auto) 600 L [place] # (Auto) 600 Eos # (Auto) 0 Baso # (Auto) 0 Sodium 141 Potassium 4.1 Chloride 106 Carbon Dioxide 22 BUN 19 H Creatinine 0.97 Estimated GFR > 60 BUN/Creatinine Ratio 19.6 Glucose 188 H Lactate Calcium 9.8 Total Bilirubin 0.6 AST 27 ALT 28 Alkaline Phosphatase 87 Total Creatine Kinase 24 L CK-MB (CK-2) TNP CK-MB (CK-2) Rel Index TNP Troponin I < 0.012 Total Protein 7.1 Albumin 3.9 Globulin 3.2 Albumin/Globulin Ratio 1.2 Lipase 49 Procalcitonin Urine Color Urine Appearance Urine pH Ur Specific [place] Urine Protein Urine Glucose (UA) Urine Ketones Urine Occult Blood Urine Nitrate Urine Bilirubin Urine Urobilinogen Ur Leukocyte Esterase Urine RBC Urine WBC Ur Squamous Epith Cells Urine Bacteria Ur Culture Indicated? SARS-CoV-2 (PCR) Influenza A (RT-PCR) Influenza B (RT-PCR) RSV (PCR) 08/04/22 08/04/22 08/04/22 13:43 14:40 15:03 WBC RBC Hgb Hct MCV MCH MCHC RDW Plt Count Neut % (Auto) Lymph % (Auto) [place] % (Auto) Eos % (Auto) Baso % (Auto) Neut # (Auto) Lymph # (Auto) [place] # (Auto) Eos # (Auto) Baso # (Auto) Sodium Potassium Chloride Carbon Dioxide BUN Creatinine Estimated GFR BUN/Creatinine Ratio Glucose Lactate 3.0 H Calcium Total Bilirubin AST ALT Alkaline Phosphatase Total Creatine Kinase CK-MB (CK-2) CK-MB (CK-2) Rel Index Troponin I Total Protein Albumin Globulin Albumin/Globulin Ratio Lipase Procalcitonin 1.18 H Urine Color Lt. yellow Urine Appearance Cloudy Urine pH 6.0 Ur Specific [place] 1.020 Urine Protein Negative Urine Glucose (UA) Negative Urine Ketones Negative Urine Occult Blood 2+ H Urine Nitrate Negative Urine Bilirubin Negative Urine Urobilinogen 0.2 Ur Leukocyte Esterase 2+ H Urine RBC 5-10/hpf H Urine WBC 5-10/hpf H Ur Squamous Epith Cells 1-5 /hpf Urine Bacteria Few (2-10) H Ur Culture Indicated? Specimen cultured SARS-CoV-2 (PCR) Influenza A (RT-PCR) Influenza B (RT-PCR) RSV (PCR) 08/04/22 08/04/22 15:08 16:24 WBC RBC Hgb Hct MCV MCH MCHC RDW Plt Count Neut % (Auto) Lymph % (Auto) [place] % (Auto) Eos % (Auto) Baso % (Auto) Neut # (Auto) Lymph # (Auto) [place] # (Auto) Eos # (Auto) Baso # (Auto) Sodium Potassium Chloride Carbon Dioxide BUN Creatinine Estimated GFR BUN/Creatinine Ratio Glucose Lactate 4.3 H* Calcium Total Bilirubin AST ALT Alkaline Phosphatase Total Creatine Kinase CK-MB (CK-2) CK-MB (CK-2) Rel Index Troponin I Total Protein Albumin Globulin Albumin/Globulin Ratio Lipase Procalcitonin Urine Color Urine Appearance Urine pH Ur Specific [place] Urine Protein Urine Glucose (UA) Urine Ketones Urine Occult Blood Urine Nitrate Urine Bilirubin Urine Urobilinogen Ur Leukocyte Esterase Urine RBC Urine WBC Ur Squamous Epith Cells Urine Bacteria Ur Culture Indicated? SARS-CoV-2 (PCR) Negative Influenza A (RT-PCR) Flu a negative Influenza B (RT-PCR) Flu b negative RSV (PCR) Negative Assessment & Plan Assessment & Plan narrative: Sabiha Pierson is admitted to the inpatient unit for treatment of mild left hydronephrosis associated with a urinary tract infection. Sepsis secondary to Mild left hydronephrosis associated with a urinary tract infection acute, present on admission * Per the ED note, they consulted w/Urology, recommended medical management w/tamsulosin. No intervention unless considered a severe hydronephrosis * She was administered IV zosyn in the ED. * She is initiated a loading dose of IV ceftriaxone 2 g today and will continue 1 g daily * She has a elevated WBC and an elevated lactate combined with tachycardia meeting criteria for sepsis Secondary multiple sclerosis, chronic * Continue home dose of quetiapine 25 mg p.o. b.i.d. Depression, chronic * Continue home dose trazodone 50 mg p.o. at bedtime Other independent historians: None Discussion of results, plan of care with independent HCP/other ED provider Reviewed outside records: Neurology, Physical therapy VTE Prophylaxis: Wells risk score 0 X Enoxaparin 40 mg subQ once daily Bilatera l SCDs Patient is admitted to the inpatient service due to the severity of disease, risks of further disease progression and this stay is expected to exceed 2 midnights. FEN: IV fluids: NS at 100 ml/hour, diet: general diet w/aspiration precautions, labs: CBC, C/BMP, liver enzymes, Mag, PT/INR Consultants None Dispo: probable d/c back to [facility] Code status: Full Code per POLST [X] I have utilized all available immediate resources to obtain, update, or review of the patient's current medications VTE Deep Vein Thrombosis/Pulmonary Embolism Present on Admission: No MIPS - Admit I confirm the patient?s Advance Care Plan is present, Code status is documented, Surrogate decision maker is in patient?s record: Yes MIPS - DC The patient has current or prior documentation of left ventricular ejection fraction (LVEF) less than 40%, or moderate or severely depressed left ventricular systolic function.: No COVID-19 COVID-19 status: Negative Result date/Date tested (Pos, Neg/Pending): 08/04/22 Quality VTE Deep Vein Thrombosis/Pulmonary Embolism Present on Admission: No
[2022-08-04] MEDS: SODIUM CHLORIDE 0.9% 1,000 ML 100 ML IV (21:02)
[2022-08-04] MEDS: QUETIAPINE 25 MG TABLET PO (21:12)
[2022-08-04] MEDS: TAMSULOSIN 0.4 MG CAPSULE PO (21:12)
[2022-08-05] MEDS: ONDANSETRON 4 MG/2 ML INJ IV ×2 (00:55→06:41)
[2022-08-05 04:40] LABS: Acinetobacter baumannii Not Detected (Not Detect); E. coli Not Detected (Not Detect); Enterobacter cloacae complex Not Detected (Not Detect); Enterobacteriaceae species Detected (Not Detect); Enterococcus species Not Detected (Not Detect); KPC (carbapenem-resist gene) Not Detected (Not Detect); Listeria monocytogenes Not Detected (Not Detect); Proteus species Detected (Not Detect); Serratia marcescens Not Detected (Not Detect); Staphylococcus species Not Detected (Not Detect); Streptococcus agalactiae (Gr B Not Detected (Not Detect); Streptococcus pneumonia Not Detected (Not Detect); Streptococcus pyogenes (Gr A) Not Detected (Not Detect); Streptococcus species Not Detected (Not Detect)
[2022-08-05 04:41] LABS: Candida albicans Not Detected (Not Detect); Candida glabrata Not Detected (Not Detect); Candida krusei Not Detected (Not Detect); Candida parapsilosis Not Detected (Not Detect); Candida tropicalis Not Detected (Not Detect); Haemophilus influenzae Not Detected (Not Detect); Neisseria meningitidis Not Detected (Not Detect); Pseudomonas aeruginosa Not Detected (Not Detect)
[2022-08-05 05:00] VITALS: BP 108/52; PULSE 96; RESP 16; TEMP 36.7; O2SAT 95
[2022-08-05 05:01] VITALS: TEMP 36.7
[2022-08-05] MEDS: ACETAMINOPHEN 325 MG TABLET 650 MG PO ×2 (05:01→16:09)
[2022-08-05 05:02] LABS: Add Manual Diff / Slide Review NO; Basophils Absolute Auto 100 /uL (0-100); Basophils Percent Auto 0.2 % (0-2); Eosinophils Absolute Auto 0 /uL (0-450); Hematocrit 37.5 % (36-46); Hemoglobin 12.4 g/dL (12.0-16.0); Lymphocytes Absolute Auto 1500 /uL (1100-4500); Lymphocytes Percent Auto 6.9 % (25-40); Mean Corpuscular Hemoglobin 30.2 PG (26-34); Mean Corpuscular Volume 91.7 fL (80-100); Monocytes Absolute Auto 1700 /uL (0-900); Monocytes Percent Auto 7.8 % (3-14); Neutrophils Absolute Auto 18000 /uL (1500-7000); Neutrophils Percent Auto 85.1 % (50-75); Platelet Count 169 X10^3/uL (150-400); Red Blood Cell Count 4.09 X10^6/uL (4.0-5.2); White Blood Cell Count 21.2 X10^3/uL (4.5-11.0)
[2022-08-05 05:08] LABS: Alanine Aminotransferase 22 IU/L (<35); Albumin 2.7 g/dL (3.5-5.0); Albumin Globulin Ratio 0.9 (1.0-2.8); Alkaline Phosphatase 51 U/L (38-126); Aspartate Aminotransferase 25 IU/L (14-36); BUN Creatinine Ratio 15.5 (6-22); Bilirubin Total 0.5 mg/dL (0.2-1.3); Blood Urea Nitrogen 15 mg/dL (7-17); Calcium 7.8 mg/dL (8.4-10.2); Carbon Dioxide 26 mmol/L (22-32); Chloride 111 mmol/L (98-107); Estimated Glomerular Filt Rate > 60 mL/min (>60); Glucose 101 mg/dL (80-110); HEMOLYSIS 45 (0-50); Magnesium 1.6 mg/dL (1.6-2.3); Potassium 4.3 mmol/L (3.4-5.1); Sodium 141 mmol/L (137-145); Total Protein 5.7 g/dL (6.3-8.2)
[2022-08-05] MEDS: METOCLOPRAMIDE 10 MG/2 ML INJ IV (05:52)
[2022-08-05] MEDS: KETOROLAC 30 MG/ML VIAL 15 MG IV (06:03)
[2022-08-05 07:00] VITALS: O2SAT 94
--- NOTE | 2022-08-05 07:13 | PC.NURSE ---
Addendum entered by Tameka Littlejohn R.N. 08/05/22 07:19: Navdeep's contact info is [phone] ext [phone] Original Note: [id number] Navdeep from [facility] called for an update on patient which I provided. Navdeep clarified that patient normally knows the month and year and where she is, that she does not typically have headaches, and that she does NOT SELF CATH.
[2022-08-05 08:00] VITALS: BP 103/56; PULSE 94; TEMP 36.8; O2SAT 95
[2022-08-05] MEDS: MEROPENEM 500 MG in SODIUM CHLORIDE 0.9% 100 ML 200 MG IV ×3 (09:30→21:36)
[2022-08-05] MEDS: FUROSEMIDE 20 MG/2 ML VIAL IV (09:30)
--- NOTE | 2022-08-05 09:34 | DI.RAD.S_ITS ---
PROCEDURE: XR CHEST 1V INDICATIONS: wet lungs on exam TECHNIQUE: One view of the chest was acquired. COMPARISON: [facility], , CHEST 1 VIEW, 02/21/2016, 10:34. FINDINGS: Surgical changes and devices: None. Lungs and pleura: Asymmetric elevation of the right hemidiaphragm. Low lung volumes overall. Diffuse interstitial thickening, right worse than left. No visible pleural effusions. No definite dense consolidations although the left retrocardiac region is not well seen. Mediastinum: Probable mild cardiomegaly. Filling of the AP windows likely secondary to low lung volumes. Central vasculature is not well seen. Aortic contour appears normal. Bones and chest wall: No suspicious bony lesions. Overlying soft tissues appear unremarkable. IMPRESSION: 1. Decreased lung volumes accentuate cardiomediastinal and bronchovascular structures. 2. Interstitial thickening and indistinct central vessels suggest CHF. 3. Probable mild cardiomegaly. 4. Left retrocardiac opacity difficult to exclude given technique. Dictated by: Анна Newman M.D. on 08/05/2022 at 9:32 Approved by: Анна Newman M.D. on 08/05/2022 at 9:35
[2022-08-05] MEDS: TAMSULOSIN 0.4 MG CAPSULE PO (10:17)
[2022-08-05] MEDS: ENOXAPARIN 40 MG/0.4 ML SYRINGE SUBCUT (10:17)
[2022-08-05] MEDS: DOCUSATE 100 MG CAPSULE PO ×2 (10:18→21:34)
[2022-08-05] MEDS: QUETIAPINE 25 MG TABLET PO ×2 (10:18→21:34)
--- NOTE | 2022-08-05 11:39 | CM.DANOTE ---
DCP: Case received, EMR reviewed and met with patient. Introduced self and role briefly. Due to some noted confusion, was able to obtain information from nurseMar, at [facility], regarding patient's baseline activity level at their facility. DCP assessment completed with information currently available. Patient is a 67 year old female who admitted yesterday afternoon to the care of the hospitalist team. PCP: Dr. Wong, facility [facility], [facility]. Payer: confirmed: [employer]. Patient came to the hospital via wheelchair secondary to having decreased mental status. Patient was noted to have a urinary tract infection, and mild left hydronephrosis. Patient has history of multiple sclerosis, and resides at [facility]. Patient was awake in her room. Was able to get further information from nurse/med Mar manriquez. Confirmed that she resides at [facility] in the assisted living section, not memory care. She does not have a catheter at her baseline. She is full care, hoier lift, assist with toileting and showers, and is in her wheel-chair at baseline. She does feed herself. P: DCP to continue to follow. Plan is back to [facility] when stable, will most likely need to contact director community organization, [place], to see if she will need updated assessment, primarily if she is still here on Thursday, due to staffing during the weekend. Lisette Hauser RN/[employer] Filling Machine Operator Discharge Planning/Care Management CM Discharge Assessment Start: 08/05/22 11:36 Freq: Status: Active Protocol: Document 08/05/22 11:37 (Rec: 08/05/22 11:39 [id number]) Discharge Planning Assessment Assigned Addiction Social Worker Lisette Hauser RN/[employer] Filling Machine Operator Advance Directives? Yes: POLST Advance Directives on File Yes History Provided By Patient,Medical Record Prior Living Arrangements Assisted Living Household Members none Type of transporation used prior to Relies on Others admit Facility Name Admitted From: [facility] Willing to Return to Facility? Yes Independent with ADL's No Is patient alert and oriented? Yes Needs Assistance With Bathing,Grooming,Meal Prep, Toileting,Managing Medications ,Home Chores / Shopping Comment At patient's baseline, is able to feed herself, per staff at [facility] Caregiver for Another No DME Already Rented / Owned Wheelchair,Other Comment Hoier lift for transfers Barriers to Discharge No Discharge Plan Home Transportation Arrangement Nat Referrals Initiated None needed Whiteboard Updated in Patient Room with Yes name and ext. # of Addiction Social Worker Review Status In Process Next Review Type Continued Stay Review
[2022-08-05] MEDS: MAGNESIUM CHLORIDE 64 MG TABLET 128 MG PO (12:30)
--- NOTE | 2022-08-05 12:51 | P.PN_ITS ---
Subjective Subjective Date Patient Seen: 08/05/22 Interval history: 67-year-old with progressive MS, Alvina lift dependent, resident of [facility] presented to ED because of abdominal pain. CT showed 2 mm distal left ureteral calculus with mild hydronephrosis and an increased right adnexal cyst. She appeared septic with elevated WBC and lactate and infected looking urine. Patient notes improvement in abdominal pain. Her serum PCR is positive for Enterobacter and Proteus. Her blood cultures 2/2 are growing Proteus. She was fluid resuscitated in ED and sounds wet on exam. WBC is actually higher at 21.2. Exam Vital Signs (past 8 hours): - 08/05/22 05:01 08/05/22 05:00 08/05/22 08:00 Temperature 98.1 F 98.1 F 98.3 F Pulse Rate 96 H 94 H Respiratory Rate 16 Blood Pressure 108/52 L 103/56 L Pulse Oximetry 95 95 Oxygen Delivery Method Oxygen Flow Rate 1 1 08/05/22 07:00 08/05/22 07:00 Temperature Pulse Rate Respiratory Rate Blood Pressure Pulse Oximetry 94 Oxygen Delivery Method Room Air Room Air Oxygen Flow Rate Fraction of Inspired Oxygen 24 SaO2/FiO2 Ratio 395 Oxygen Delivery Method Room Air Oxygen Flow Rate 1 Narrative Exam Narrative: General: Alert, pleasant female, NAD Lungs: Breathing nonlabored, bilateral crackles in mid to lower lobes, no wheeze Heart: Regular rhythm Abdomen: Soft, NT Extremities: No pretibial edema Neuro: Affect pleasant, oriented to person and place, speech normal Objective Labs 08/05/22 04:44 08/05/22 04:44 Labs: Laboratory Results - last 24 hr 08/04/22 08/04/22 08/04/22 12:03 13:43 13:43 WBC 18.9 H RBC 5.02 Hgb 15.2 Hct 45.9 MCV 91.5 MCH 30.2 MCHC 33.0 RDW 14.9 H Plt Count 204 Neut % (Auto) 93.5 H Lymph % (Auto) 3.2 L [place] % (Auto) 3.2 Eos % (Auto) 0.0 L Baso % (Auto) 0.1 Neut # (Auto) 47286 H Lymph # (Auto) 600 L [place] # (Auto) 600 Eos # (Auto) 0 Baso # (Auto) 0 Sodium 141 Potassium 4.1 Chloride 106 Carbon Dioxide 22 BUN 19 H Creatinine 0.97 Estimated GFR > 60 BUN/Creatinine Ratio 19.6 Glucose 188 H Lactate Calcium 9.8 Magnesium Total Bilirubin 0.6 AST 27 ALT 28 Alkaline Phosphatase 87 Total Creatine Kinase 24 L CK-MB (CK-2) TNP CK-MB (CK-2) Rel Index TNP Troponin I < 0.012 Total Protein 7.1 Albumin 3.9 Globulin 3.2 Albumin/Globulin Ratio 1.2 Lipase 49 Procalcitonin Urine Color Urine Appearance Urine pH Ur Specific [place] Urine Protein Urine Glucose (UA) Urine Ketones Urine Occult Blood Urine Nitrate Urine Bilirubin Urine Urobilinogen Ur Leukocyte Esterase Urine RBC Urine WBC Ur Squamous Epith Cells Urine Bacteria Ur Culture Indicated? Nasal Screen MRSA (PCR) A. baumannii (PCR) Susie albicans (PCR) C. glabrata (PCR) C. krusei (PCR) C. parapsilosis (PCR) C. tropicalis (PCR) SARS-CoV-2 (PCR) Enterobacteriac sp PCR E. cloacae complex PCR Enterococcus sp PCR E. coli (PCR) H. influenzae (PCR) Influenza A (RT-PCR) Influenza B (RT-PCR) Klebsiella oxytoca PCR Klebsiella pneumoniae List. monocytogenes PCR N. meningitidis (PCR) Proteus species (PCR) RSV (PCR) Serratia marcescens PCR Staphylococcus sp PCR Staph aureus (PCR) mecA-Methicil Res Gene Streptococcus sp PCR Group A Strep (PCR) Strep agalactiae (PCR) Strep pneumoniae (PCR) P. aeruginosa (PCR) Faustina/B-Vanco Res Genes KPC-Carbap Res Gene PCR 08/04/22 08/04/22 08/04/22 13:43 14:40 15:03 WBC RBC Hgb Hct MCV MCH MCHC RDW Plt Count Neut % (Auto) Lymph % (Auto) [place] % (Auto) Eos % (Auto) Baso % (Auto) Neut # (Auto) Lymph # (Auto) [place] # (Auto) Eos # (Auto) Baso # (Auto) Sodium Potassium Chloride Carbon Dioxide BUN Creatinine Estimated GFR BUN/Creatinine Ratio Glucose Lactate 3.0 H Calcium Magnesium Total Bilirubin AST ALT Alkaline Phosphatase Total Creatine Kinase CK-MB (CK-2) CK-MB (CK-2) Rel Index Troponin I Total Protein Albumin Globulin Albumin/Globulin Ratio Lipase Procalcitonin 1.18 H Urine Color Lt. yellow Urine Appearance Cloudy Urine pH 6.0 Ur Specific [place] 1.020 Urine Protein Negative Urine Glucose (UA) Negative Urine Ketones Negative Urine Occult Blood 2+ H Urine Nitrate Negative Urine Bilirubin Negative Urine Urobilinogen 0.2 Ur Leukocyte Esterase 2+ H Urine RBC 5-10/hpf H Urine WBC 5-10/hpf H Ur Squamous Epith Cells 1-5 /hpf Urine Bacteria Few (2-10) H Ur Culture Indicated? Specimen cultured Nasal Screen MRSA (PCR) A. baumannii (PCR) Susie albicans (PCR) C. glabrata (PCR) C. krusei (PCR) C. parapsilosis (PCR) C. tropicalis (PCR) SARS-CoV-2 (PCR) Enterobacteriac sp PCR E. cloacae complex PCR Enterococcus sp PCR E. coli (PCR) H. influenzae (PCR) Influenza A (RT-PCR) Influenza B (RT-PCR) Klebsiella oxytoca PCR Klebsiella pneumoniae List. monocytogenes PCR N. meningitidis (PCR) Proteus species (PCR) RSV (PCR) Serratia marcescens PCR Staphylococcus sp PCR Staph aureus (PCR) mecA-Methicil Res Gene Streptococcus sp PCR Group A Strep (PCR) Strep agalactiae (PCR) Strep pneumoniae (PCR) P. aeruginosa (PCR) Faustina/B-Vanco Res Genes KPC-Carbap Res Gene PCR 08/04/22 08/04/22 08/04/22 15:08 16:24 18:25 WBC RBC Hgb Hct MCV MCH MCHC RDW Plt Count Neut % (Auto) Lymph % (Auto) [place] % (Auto) Eos % (Auto) Baso % (Auto) Neut # (Auto) Lymph # (Auto) [place] # (Auto) Eos # (Auto) Baso # (Auto) Sodium Potassium Chloride Carbon Dioxide BUN Creatinine Estimated GFR BUN/Creatinine Ratio Glucose Lactate 4.3 H* Calcium Magnesium Total Bilirubin AST ALT Alkaline Phosphatase Total Creatine Kinase CK-MB (CK-2) CK-MB (CK-2) Rel Index Troponin I Total Protein Albumin Globulin Albumin/Globulin Ratio Lipase Procalcitonin Urine Color Urine Appearance Urine pH Ur Specific [place] Urine Protein Urine Glucose (UA) Urine Ketones Urine Occult Blood Urine Nitrate Urine Bilirubin Urine Urobilinogen Ur Leukocyte Esterase Urine RBC Urine WBC Ur Squamous Epith Cells Urine Bacteria Ur Culture Indicated? Nasal Screen MRSA (PCR) Negative for mrsa A. baumannii (PCR) Susie albicans (PCR) C. glabrata (PCR) C. krusei (PCR) C. parapsilosis (PCR) C. tropicalis (PCR) SARS-CoV-2 (PCR) Negative Enterobacteriac sp PCR E. cloacae complex PCR Enterococcus sp PCR E. coli (PCR) H. influenzae (PCR) Influenza A (RT-PCR) Flu a negative Influenza B (RT-PCR) Flu b negative Klebsiella oxytoca PCR Klebsiella pneumoniae List. monocytogenes PCR N. meningitidis (PCR) Proteus species (PCR) RSV (PCR) Negative Serratia marcescens PCR Staphylococcus sp PCR Staph aureus (PCR) mecA-Methicil Res Gene Streptococcus sp PCR Group A Strep (PCR) Strep agalactiae (PCR) Strep pneumoniae (PCR) P. aeruginosa (PCR) Faustina/B-Vanco Res Genes KPC-Carbap Res Gene PCR 08/04/22 08/05/22 08/05/22 23:07 04:44 04:44 WBC 21.2 H RBC 4.09 Hgb 12.4 Hct 37.5 MCV 91.7 MCH 30.2 MCHC 33.0 RDW 15.0 H Plt Count 169 Neut % (Auto) 85.1 H Lymph % (Auto) 6.9 L [place] % (Auto) 7.8 Eos % (Auto) 0.0 L Baso % (Auto) 0.2 Neut # (Auto) 81506 H Lymph # (Auto) 1500 [place] # (Auto) 1700 H Eos # (Auto) 0 Baso # (Auto) 100 Sodium 141 Potassium 4.3 Chloride 111 H Carbon Dioxide 26 BUN 15 Creatinine 0.97 Estimated GFR > 60 BUN/Creatinine Ratio 15.5 Glucose 101 Lactate 2.0 Calcium 7.8 L Magnesium 1.6 Total Bilirubin 0.5 AST 25 ALT 22 Alkaline Phosphatase 51 Total Creatine Kinase CK-MB (CK-2) CK-MB (CK-2) Rel Index Troponin I Total Protein 5.7 L Albumin 2.7 L Globulin 3.0 Albumin/Globulin Ratio 0.9 L Lipase Procalcitonin Urine Color Urine Appearance Urine pH Ur Specific [place] Urine Protein Urine Glucose (UA) Urine Ketones Urine Occult Blood Urine Nitrate Urine Bilirubin Urine Urobilinogen Ur Leukocyte Esterase Urine RBC Urine WBC Ur Squamous Epith Cells Urine Bacteria Ur Culture Indicated? Nasal Screen MRSA (PCR) A. baumannii (PCR) Susie albicans (PCR) C. glabrata (PCR) C. krusei (PCR) C. parapsilosis (PCR) C. tropicalis (PCR) SARS-CoV-2 (PCR) Enterobacteriac sp PCR E. cloacae complex PCR Enterococcus sp PCR E. coli (PCR) H. influenzae (PCR) Influenza A (RT-PCR) Influenza B (RT-PCR) Klebsiella oxytoca PCR Klebsiella pneumoniae List. monocytogenes PCR N. meningitidis (PCR) Proteus species (PCR) RSV (PCR) Serratia marcescens PCR Staphylococcus sp PCR Staph aureus (PCR) mecA-Methicil Res Gene Streptococcus sp PCR Group A Strep (PCR) Strep agalactiae (PCR) Strep pneumoniae (PCR) P. aeruginosa (PCR) Faustina/B-Vanco Res Genes KPC-Carbap Res Gene PCR 08/05/22 13:43 WBC RBC Hgb Hct MCV MCH MCHC RDW Plt Count Neut % (Auto) Lymph % (Auto) [place] % (Auto) Eos % (Auto) Baso % (Auto) Neut # (Auto) Lymph # (Auto) [place] # (Auto) Eos # (Auto) Baso # (Auto) Sodium Potassium Chloride Carbon Dioxide BUN Creatinine Estimated GFR BUN/Creatinine Ratio Glucose Lactate Calcium Magnesium Total Bilirubin AST ALT Alkaline Phosphatase Total Creatine Kinase CK-MB (CK-2) CK-MB (CK-2) Rel Index Troponin I Total Protein Albumin Globulin Albumin/Globulin Ratio Lipase Procalcitonin Urine Color Urine Appearance Urine pH Ur Specific [place] Urine Protein Urine Glucose (UA) Urine Ketones Urine Occult Blood Urine Nitrate Urine Bilirubin Urine Urobilinogen Ur Leukocyte Esterase Urine RBC Urine WBC Ur Squamous Epith Cells Urine Bacteria Ur Culture Indicated? Nasal Screen MRSA (PCR) A. baumannii (PCR) Not detected Susie albicans (PCR) Not detected C. glabrata (PCR) Not detected C. krusei (PCR) Not detected C. parapsilosis (PCR) Not detected C. tropicalis (PCR) Not detected SARS-CoV-2 (PCR) Enterobacteriac sp PCR Detected H E. cloacae complex PCR Not detected Enterococcus sp PCR Not detected E. coli (PCR) Not detected H. influenzae (PCR) Not detected Influenza A (RT-PCR) Influenza B (RT-PCR) Klebsiella oxytoca PCR Not detected Klebsiella pneumoniae Not detected List. monocytogenes PCR Not detected N. meningitidis (PCR) Not detected Proteus species (PCR) Detected H RSV (PCR) Serratia marcescens PCR Not detected Staphylococcus sp PCR Not detected Staph aureus (PCR) Not detected mecA-Methicil Res Gene Not Reportable Streptococcus sp PCR Not detected Group A Strep (PCR) Not detected Strep agalactiae (PCR) Not detected Strep pneumoniae (PCR) Not detected P. 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 Severe sepsis with Gram-negative bacteremia secondary to urinary source -presented tachycardic, elevated WBC and lactate, mildly hypoxic with sat 89% and evidence of urinary infection -blood cultures 2/2 positive for Proteus, sensitivities pending -urine culture positive for GNR -however, PCR positive for Enterobacter and Proteus -increase in WBC on 08/05 concerning for potential ESBL Enterobacter organism -changed antibiotic to meropenem 1 g q.8 hours as of 08/05/2022, (prior received Rocephin x1, then oral Cipro) -trend WBC and tailor antibiotic pending final sensitivities and clinical response 2. Complicated UTI, distal left ureteral stone with mild left hydro -patient does not self-catheterize as had been reported in HPI -CT scan with evidence of 2 mm distal left ureteral stone with mild left hydro -CT findings were discussed with Urology by ED doc, recommended medical management with antibiotics and to start tamsulosin -urology to see patient -tamsulosin 0.4 mg q.d. initiated per Urology recommendation -Tylenol as needed, metoclopramide as needed nausea/vomiting 3. Acute pulmonary edema secondary to fluid resuscitation for sepsis -significant crackles on exam and chest x-ray showing findings consistent with CHF -Lasix 20 mg IV x1 ordered on 08/05/2022 -discontinued IV fluids 4. Depression -continue fluoxetine 5. Progressive multiple sclerosis -[facility] DVT prophylaxis: Enoxaparin Time Spent With Patient Critical Care time: I spent a total of [] minutes of critical care time on this patient's care today; this time is exclusive of procedural time. Quality VTE Deep Vein Thrombosis/Pulmonary Embolism Present on Admission: No
--- NOTE | 2022-08-05 17:07 | DI.CT.S_ITS ---
PROCEDURE: CT PEL WO CON INDICATIONS: Left ureteral calculus and possible urosepsis. TECHNIQUE: Noncontrast 3 mm axial sections acquired through the bony pelvis, with coronal and sagittal reformatting. COMPARISON: [facility], CT, CT ABDOMEN PELVIS W CON, 08/04/2022, 15:20. FINDINGS: Image quality: Good Lower abdomen: No bowel obstruction. Nonspecific partially seen mesenteric fat stranding. No pathologic ascites. Bladder: Under distended with Gerber in place, not well evaluated No discrete ureter calculus is identified. However, there is still mild left ureter dilation. There is also fat stranding in the distal left ureter in the region of the left adnexa. No evidence of right ureter dilation. Reproductive organs: A right adnexal cyst measuring up to 6 cm is present, as before. Rectum: There is a rectal stool ball Vessels and lymph nodes: No pathologic adenopathy by size criteria, or aneurysmal vessel. Pelvic wall: Anterior abdominal wall likely injection sites. Bones: No acute or suspicious osseous abnormality. There are degenerative changes. IMPRESSION: No discrete, obstructing radiopaque calculus identified. There is persistent left mild ureter stranding. In addition, there is fat stranding/inflammation surrounding the left distal ureter, around the region of the left adnexa. Please correlate with urinalysis. This could also be further evaluated with ureteroscopy. The bladder is under distended with wall thickening and Gerber in place, not well evaluated. Right adnexal cyst again seen, consider further evaluation with ultrasound or MRI versus gynecologic consultation. Dictated by: Bo Anderson M.D. on 08/06/2022 at 9:57 Approved by: Bo Anderson M.D. on 08/06/2022 at 10:02
[2022-08-05 19:00] VITALS: O2SAT 94
[2022-08-05 20:00] VITALS: BP 110/56; PULSE 101; RESP 20; TEMP 36.6; O2SAT 93
[2022-08-05] MEDS: TRAZODONE 50 MG TABLET PO (21:34)
[2022-08-06] MEDS: MEROPENEM 500 MG in SODIUM CHLORIDE 0.9% 100 ML 200 MG IV (03:06)
[2022-08-06 05:35] LABS: Add Manual Diff / Slide Review NO; Alanine Aminotransferase 27 IU/L (<35); Albumin 3.1 g/dL (3.5-5.0); Alkaline Phosphatase 75 U/L (38-126); Aspartate Aminotransferase 31 IU/L (14-36); BUN Creatinine Ratio 12.2 (6-22); Basophils Absolute Auto 0 /uL (0-100); Basophils Percent Auto 0.3 % (0-2); Bilirubin Total 0.4 mg/dL (0.2-1.3); Blood Urea Nitrogen 9 mg/dL (7-17); Carbon Dioxide 26 mmol/L (22-32); Chloride 110 mmol/L (98-107); Eosinophils Absolute Auto 100 /uL (0-450); Eosinophils Percent Auto 0.7 % (2-4); Estimated Glomerular Filt Rate > 60 mL/min (>60); Globulin 3.2 g/dL (1.7-4.1); Glucose 94 mg/dL (80-110); HEMOLYSIS 17 (0-50); Hematocrit 40.1 % (36-46); Hemoglobin 13.6 g/dL (12.0-16.0); Lymphocytes Absolute Auto 600 /uL (1100-4500); Lymphocytes Percent Auto 8.1 % (25-40); Magnesium 1.8 mg/dL (1.6-2.3); Mean Corpuscular HGB Conc 33.9 % (30-36); Mean Corpuscular Hemoglobin 30.9 PG (26-34); Mean Corpuscular Volume 91.1 fL (80-100); Monocytes Absolute Auto 800 /uL (0-900); Monocytes Percent Auto 10.4 % (3-14); Neutrophils Absolute Auto 6400 /uL (1500-7000); Neutrophils Percent Auto 80.5 % (50-75); Platelet Count 137 X10^3/uL (150-400); Potassium 3.3 mmol/L (3.4-5.1); Red Cell Distribution Width 14.8 % (11.6-14.8); Sodium 143 mmol/L (137-145); Total Protein 6.3 g/dL (6.3-8.2)
[2022-08-06 07:00] VITALS: BP 125/58; PULSE 91; RESP 17; TEMP 36.2; O2SAT 94; O2SAT 95
[2022-08-06] MEDS: POTASSIUM CHLORIDE 20 MEQ TAB 40 MEQ PO ×2 (08:26→14:33)
[2022-08-06] MEDS: TAMSULOSIN 0.4 MG CAPSULE PO (08:27)
[2022-08-06] MEDS: QUETIAPINE 25 MG TABLET PO ×2 (08:27→21:25)
[2022-08-06] MEDS: DOCUSATE 100 MG CAPSULE PO ×2 (08:27→21:25)
[2022-08-06] MEDS: FLUoxetine 20 MG CAPSULE 40 MG PO (08:27)
--- NOTE | 2022-08-06 10:27 | CM.DPC ---
Addendum entered by Lisette Hauser R.N. 08/06/22 13:27: Spoke to patient's sister, Shaina, who is patient's DPOA, with update. Let her know that patient will need alf secondary to infection, prolonged IV ABO, which [facility] can't do. She was concerned about COVID cases at [facility], let her know that there are no current cases, at this time they are not accepting positive COVID patients. She asked if the nurse can update her , Ruy, as she has additional questions of the need for IV ABO. Update nurse, Laquita. Patient is getting PICC line in today, it is undetermined as of yet which IV ABO that she will be going on. Addendum entered by Lisette Hauser R.N. 08/06/22 10:46: Ursula at [facility] is reviewing. Called Janice, manager of case at [place], and updated her for skilled need for IV ABO. She gave auth number of: [id number]. Called Ursula back and gave her the auth number. Patient most likely would go tomorrow, depends upon when PICC line can go in. Patient unable to comprehend, attempted to reach out to Shaina TAYLOR, left her a message to call back. Will need to complete PASSR. Original Note: DCP Cont: Discussed patient during team rounds. It is noted that patient will need to have extended IV ABO, due to blood cultures, therefor, will need skilled before going back to [facility]. Called nursing care partner, Enrico, at [facility], and updated him. Left a message with Ursula, in admissions at [facility] to review. Patient may be getting PICC line today. P: DCP to continue to follow. Patient will need alf before going back to [facility], will check in with patient to see if her DPOA can be updated. Lisette Hauser, RN/Lead Android Developer
--- NOTE | 2022-08-06 10:55 | P.PN_ITS ---
Subjective Subjective Date Patient Seen: 08/06/22 Interval history: Patient feeling better and has no complaints. PICC being placed today for IV abx. Still on meropenem to cover proteus. Exam Vital Signs (past 8 hours): - 08/06/22 07:00 Temperature 97.1 F L Pulse Rate 91 H Respiratory Rate 17 Blood Pressure 125/58 L Pulse Oximetry 95 Oxygen Flow Rate 1 Fraction of Inspired Oxygen 24 SaO2/FiO2 Ratio 395 Oxygen Delivery Method Room Air Oxygen Flow Rate 1 Narrative Exam Narrative: General: Alert, pleasant female, NAD Lungs: Breathing nonlabored, bilateral crackles in mid to lower lobes, no wheeze Heart: Regular rhythm Abdomen: Soft, NT Extremities: No pretibial edema Neuro: Affect pleasant, oriented to person and place, speech normal Objective Labs 08/06/22 04:12 08/06/22 04:12 Labs: Laboratory Results - last 24 hr 08/06/22 08/06/22 04:12 04:12 WBC 8.0 D RBC 4.40 Hgb 13.6 Hct 40.1 MCV 91.1 MCH 30.9 MCHC 33.9 RDW 14.8 Plt Count 137 L Neut % (Auto) 80.5 H Lymph % (Auto) 8.1 L [place] % (Auto) 10.4 Eos % (Auto) 0.7 L Baso % (Auto) 0.3 Neut # (Auto) 6400 Lymph # (Auto) 600 L [place] # (Auto) 800 Eos # (Auto) 100 Baso # (Auto) 0 Sodium 143 Potassium 3.3 L Chloride 110 H Carbon Dioxide 26 BUN 9 Creatinine 0.74 Estimated GFR > 60 BUN/Creatinine Ratio 12.2 Glucose 94 Calcium 8.0 L Magnesium 1.8 Total Bilirubin 0.4 AST 31 ALT 27 Alkaline Phosphatase 75 Total Protein 6.3 Albumin 3.1 L Globulin 3.2 Albumin/Globulin Ratio 1.0 [facility] Medical History 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 Severe sepsis with Gram-negative bacteremia secondary to urinary source, sepsis resolved -presented tachycardic, elevated WBC and lactate, mildly hypoxic with sat 89% and evidence of urinary infection -blood cultures 2/2 positive for Proteus, sensitive to carbepenems. Will avoid 3rd gen cephalosporins due to resistance. -increase in WBC on 08/05 concerning for potential ESBL Enterobacter organism -changed antibiotic to meropenem 1 g q.8 hours as of 08/05/2022, (prior received Rocephin x1, then oral Cipro) -leukocytosis now resolved -will likely change to ertapenem 1g q24 for dosing at [facility] to last duration of 2 weeks 2. Complicated UTI, distal left ureteral stone with mild left hydro -patient does not self-catheterize as had been reported in HPI -CT scan with evidence of 2 mm distal left ureteral stone with mild left hydro -CT findings were discussed with Urology by ED doc, recommended medical management with antibiotics and to start tamsulosin -repeat CT on 08/06 showed no stone so it likely passed 3. Acute pulmonary edema secondary to fluid resuscitation for sepsis -significant crackles on exam and chest x-ray showing findings consistent with CHF -Lasix 20 mg IV x1 ordered on 08/05/2022 -discontinued IV fluids 4. Depression -continue fluoxetine 5. Progressive multiple sclerosis -[facility] DVT prophylaxis: Enoxaparin Dispo: [facility] on 08/07 for 2 weeks of IV abx. Time Spent With Patient Critical Care time: I spent a total of [] minutes of critical care time on this patient's care today; this time is exclusive of procedural time. Quality VTE Deep Vein Thrombosis/Pulmonary Embolism Present on Admission: No
[2022-08-06] MEDS: MEROPENEM 1 GM in SODIUM CHLORIDE 0.9% 100 ML IV ×2 (11:42→18:38)
[2022-08-06] MEDS: ACETAMINOPHEN 325 MG TABLET 650 MG PO (17:01)
[2022-08-06] MEDS: ONDANSETRON 4 MG/2 ML INJ IV (17:01)
[2022-08-06 18:51] LABS: COVID19 -Nasal RAPID Negative (Negative)
[2022-08-06 19:00] VITALS: O2SAT 88
[2022-08-06 20:00] VITALS: BP 132/60; PULSE 98; RESP 16; TEMP 37.1; O2SAT 94
[2022-08-06] MEDS: TRAZODONE 50 MG TABLET PO (21:25)
[2022-08-07] MEDS: MEROPENEM 1 GM in SODIUM CHLORIDE 0.9% 100 ML IV (03:17)
[2022-08-07] MEDS: ACETAMINOPHEN 325 MG TABLET 650 MG PO (05:06)
[2022-08-07] MEDS: ONDANSETRON 4 MG/2 ML INJ IV (05:11)
[2022-08-07 06:38] LABS: BUN Creatinine Ratio 11.4 (6-22); Blood Urea Nitrogen 8 mg/dL (7-17); Calcium 8.3 mg/dL (8.4-10.2); Carbon Dioxide 29 mmol/L (22-32); Chloride 108 mmol/L (98-107); Estimated Glomerular Filt Rate > 60 mL/min (>60); Glucose 113 mg/dL (80-110); HEMOLYSIS < 15 (0-50); Magnesium 1.9 mg/dL (1.6-2.3); Potassium 4.1 mmol/L (3.4-5.1); Sodium 143 mmol/L (137-145)
[2022-08-07 07:57] VITALS: O2SAT 93
[2022-08-07] MEDS: FLUoxetine 20 MG CAPSULE 40 MG PO (08:38)
[2022-08-07] MEDS: QUETIAPINE 25 MG TABLET PO (08:38)
[2022-08-07] MEDS: DOCUSATE 100 MG CAPSULE PO (08:38)
[2022-08-07] MEDS: ERTAPENEM 1 GM in SODIUM CHLORIDE 0.9% 100 ML IV (08:38)
[2022-08-07] MEDS: ENOXAPARIN 40 MG/0.4 ML SYRINGE SUBCUT (08:38)
[2022-08-07] MEDS: TAMSULOSIN 0.4 MG CAPSULE PO (08:39)
--- NOTE | 2022-08-07 08:57 | PM.DS.1 ---
History of Present Illness History of Present Illness Date Patient Seen: 08/07/22 Time Patient Seen: 21:02 Chief complaint: Stomach pain Narrative: Sabiha Pierson is a 67 y.o. female with secondary progressive multiple sclerosis who reportedly self catheterizes herself presented to the Ed w/abdominal pain. States she does not know why she is here in the unit. Denies fatigue, headache, n/v but then state a little and has a emesis bag next to her, denies shortness of breath, abdominal pain, dysurea, diarrhea or constipation. She states she has slight case of MS, uses a wheelchair because it is easier. She is unable to provide any history and appears confused. CT of the abdomen and pelvis reports a distal left ureteral calculus with mild left hydronephrosis and an increased right adnexal cyst recommending gynecological follow-up. She is afebrile, blood pressure 131/68 heart rate 109 respiratory rate 20 oxygen saturation of 91% on 2 L she weighs 94.5 kg with a BMI of 36.8. She does have an elevated white count at 18 with a left shift, glucose was 188 lactate was 4.3, procalcitonin was 1.18. UA was positive for a UTI and COVID-19 PCR is negative. Discharge Providers Provider Date of admission: 08/04/22 17:18 Discharge Date: 08/07/22 Primary care physician: Rashaun Wong MD Consults: 08/04/22 17:02 Consult to Physician Stat Comment: Consulting Provider: Sterling Boyd Reason for consultation: sepsis left kidney stone Has provider been notified: Yes Discharge provider: Nomi Bhatti DO Summary Hospital Course Discharge Diagnosis: 1. Severe sepsis with Gram-negative bacteremia secondary to urinary source, sepsis resolved -presented tachycardic, elevated WBC and lactate, mildly hypoxic with sat 89% and evidence of urinary infection -blood cultures 2/2 positive for Proteus, sensitive to carbepenems. Will avoid 3rd gen cephalosporins due to resistance. -increase in WBC on 08/05 concerning for potential ESBL Enterobacter organism -changed antibiotic to meropenem 1 g q.8 hours as of 08/05/2022, (prior received Rocephin x1, then oral Cipro) -leukocytosis now resolved -changed to ertapenem 1g q24 for dosing at [facility] to last duration of 2 weeks with final dose on Aug 19, 2022 2. Complicated UTI, distal left ureteral stone with mild left hydro -patient does not self-catheterize as had been reported in HPI -CT scan with evidence of 2 mm distal left ureteral stone with mild left hydro -CT findings were discussed with Urology by ED doc, recommended medical management with antibiotics and to start tamsulosin -repeat CT on 08/06 showed no stone so it likely passed 3. Acute pulmonary edema secondary to fluid resuscitation for sepsis -significant crackles on exam and chest x-ray showing findings consistent with CHF -Lasix 20 mg IV x1 ordered on 08/05/2022 -discontinued IV fluids 4.? Depression -continue fluoxetine 5.? Progressive multiple sclerosis -patient nonambulatory at Assisted Facility Hospital Course: Admitted for sepsis due to urinary source and started on IV abx. Blood and urine cultures grew proteus and patient put on meropenem due to potential cephalosporin resistance. She will complete 2 weeks of ertapenem to finish on 08/19/[address] [facility]. Had a kidney stone which passed with flomax. Time Spent with Patient Time spent: Greater than 30 minutes Exam Vital Signs (past 8 hours): - 08/07/22 07:57 Pulse Oximetry 93 Oxygen Delivery Method Nasal Cannula Oxygen Flow Rate 1 Fraction of Inspired Oxygen 24 SaO2/FiO2 Ratio 395 Oxygen Delivery Method Nasal Cannula Oxygen Flow Rate 1 Narrative Exam Narrative: General: Alert, pleasant female, NAD Lungs: Breathing nonlabored, bilateral crackles in mid to lower lobes, no wheeze Heart: Regular rhythm Abdomen: Soft, NT Extremities: No pretibial edema Neuro: Affect pleasant, oriented to person and place, speech normal Objective Labs 08/06/22 04:12 08/07/22 06:00 Labs: Laboratory Results - last 24 hr 08/06/22 08/07/22 08/07/22 18:11 06:00 06:00 Sodium 143 Potassium 4.1 Chloride 108 H Carbon Dioxide 29 BUN 8 Creatinine 0.70 Estimated GFR > 60 BUN/Creatinine Ratio 11.4 Glucose 113 H Calcium 8.3 L Magnesium 1.9 SARS-CoV-2 (PCR) Negative [facility] Medical History 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 Discharge orders & Medications Prescriptions: New ertapenem [Invanz] 1 gram Recon Soln 1 g IV Q24H 12 Days Qty: 12 0RF Rx Instructions: starting on 08/08 Continued VITAMIN D (Vitamin D3) 2,000 unit PO QDAY Qty: 0 ibuprofen 200 MG tablet 400 mg PO Q4HP PRN (Reason: Pain (Scale Score 4-6)) Qty: 0 cyanocobalamin (vitamin B-12) 1,000 mcg tablet extended release 1,000 mcg PO QDAY Qty: 30 6RF Saccharomyces boulardii [Florastor] 250 mg capsule 250 mg PO DAILY Label Comments: TAKE 1 CAPSULE BY MOUTH DAILY fluoxetine 40 mg capsule 40 mg PO DAILY quetiapine 25 mg tablet 25 mg PO BID trazodone 50 mg tablet 50 mg PO BEDTIME calcium carbonate-vitamin D3 600 mg-10 mcg (400 unit) capsule 1 cap PO QDAY Follow up/Referrals: Rashaun Wong MD [Primary Care Provider] - 2 Weeks Visit Report/Discharge Packet Stand Alone Forms: Patient Portal/API Discharge Data Primary Care Provider: Rashaun Wong Quality VTE Deep Vein Thrombosis/Pulmonary Embolism Present on Admission: No
[2022-08-07 09:00] VITALS: BP 133/60; PULSE 88; RESP 18; TEMP 36.3; O2SAT 96
--- NOTE | 2022-08-07 10:04 | DI.RAD.S_ITS ---
PROCEDURE: XR CHEST FOR PICC 1V INDICATIONS: picc placement COMPARISON: [facility], CR, XR CHEST 1V, 08/05/2022, 9:31. FINDINGS: PICC was placed by the intravenous therapy team from the right side. Fluoroscopic spot film demonstrates the tip of PICC projecting to the area of SVC right atrial junction. Patchy bilateral infiltrates, increased compared to the previous study. IMPRESSION: Tip of PICC projects to the area of SVC right atrial junction. Worsening bilateral patchy infiltrates. Dictated by: Kashif Rivera M.D. on 08/07/2022 at 10:53 Approved by: Kashif Rivera M.D. on 08/07/2022 at 10:54
== END 2022-08-07 10:55 | DRG 871 ==
LOC: ED 16:27 → AC 17:19 → ICU 18:20
PROVIDERS: Nurse Practitioner Family; Student in an Organized Health Care Education/Training Program; Admitting Provider Neuromusculoskeletal Medicine, Sports Medicine; Emergency Provider Emergency Medicine; Family Provider Family Medicine; PCP Pediatrics; Referring Provider Emergency Medicine; Visit Provider Neuromusculoskeletal Medicine, Sports Medicine
DX: A41.9 Sepsis, unspecified organism (principal); I50.31 Acute diastolic (congestive) heart failure; N39.0 Urinary tract infection, site not specified; N13.2 Hydronephrosis with renal and ureteral calculous obstruction; R65.20 Severe sepsis without septic shock; G35 Multiple sclerosis; F32.A Depression, unspecified; B96.4 Proteus (mirabilis) (morganii) as the cause of diseases classified elsewhere; Z20.822 Contact with and (suspected) exposure to COVID-19
CPT/HCPCS: 0241U; 36415; 36592; 71045; 72192; 74177; 80048; 80053; 81001; 82550; 83605; 83690; 83735; 84145; 84484; 85025; 87040; 87077; 87086; 87150; 87186; 87635; 87797; 93005; 96365; 96375; 99285; C9803; J0696; J1335; J1650; J1885; J1940; J2185; J2405; J2543; J2765; Q9967

== ENCOUNTER → 2022-08-14 13:41 | Outpatient (ROUT) | payer OTHER, SELFPAY ==
[2022-08-04 17:23] VITALS: BMI 36.8
[2022-08-14 14:39] LABS: Clostridium Difficile Tox PCR Negative for C. diff (Negative)
== END ==
PROVIDERS: Family Provider Family Medicine; PCP Pediatrics; Visit Provider Internal Medicine
DX: R19.7 Diarrhea, unspecified (principal)
CPT/HCPCS: 87493

== ENCOUNTER 2023-05-04 16:15 | Outpatient (RCR) | payer OTHER, SELFPAY ==
[2022-08-04 17:23] VITALS: BMI 36.8
--- NOTE | 2023-03-10 09:59 | PT.OIE ---
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) Depression (Unknown) Frequent UTI (Unknown) Hyperlipidemia (Unknown) Multiple sclerosis (1972) Muscular deconditioning Vitamin B deficiency Visit Care Team Role Provider Type Vasiliy Rubio DO Attending Provider Physician Family Provider Primary Care Provider Referring Provider Specialty: [facility] Practice Address: [address] [place] [address], [address], [facility] Email: [email or web address] Physical Therapy Initial Evaluation PT-OP-A Visit Information Start: 03/09/23 16:06 Freq: Status: Active Protocol: Document 03/09/23 16:06 AB (Rec: 03/09/23 17:37 AB [id number]) Out-Patient Physical Therapy Visit Information Visit Information Visit Type Initial Evaluation Visit Start Time 16:15 Visit Stop Time 17:00 Total Visit Minutes 45 Visit Number 1 Number of [employer] Visits 0 Evaluation Information Evaluation Date 03/09/23 Precautions Precautions Secondary progressive MS PT-OP-B Current Condition Start: 03/09/23 16:06 Freq: Status: Active Protocol: Document 03/09/23 16:06 AB (Rec: 03/09/23 17:37 AB [id number]) Current Condition History of Current Condition Onset Date Chronic Current Complaints Denies pain currently History of Current Condition The pt and the pt's sister ( CLAUDAI) report over the last year she has become unmotivated to continue with her PT exercises or to move out of her chair in general. Because of her lack of activity, she has lost the ability to transfer out of her chair or perform any functional mobility. However, she is able to propel her wheelchair for short distances and at a slow speed. Currently she requires assistance for all of her ADLs due to her weakness. Prior Treatments and Tests PT 1 year ago Treatment Goals Patient/Caregiver Goals To be able to stand up, transfer from wheel chair and walk. Prior Functional Status Baseline Function- ADL's Needs Assist Baseline Function- Mobility Needs Assist Baseline Function- Gait Has used W/C for 3-4 years Current Functional Impairments (Reported) Functional Limitations- ADL's Requires assisstance for all ADLs Functional Limitations- Mobility/Gait Uses wheelchair for locomotion ; able to propel W/C for 200ft Functional Limitations- Recreation/ Does not participate in any Hobbies activities due to level of function PT-OP-C Subjective Start: 03/09/23 16:06 Freq: Status: Active Protocol: Document 03/09/23 16:06 AB (Rec: 03/09/23 17:37 AB [id number]) OP-PT Subjective Patient Comments Patient Comments See hx of current condition PT-OP-G Mobility & Gait Start: 03/09/23 16:06 Freq: Status: Active Protocol: Document 03/09/23 16:06 AB (Rec: 03/09/23 17:37 AB [id number]) OP Mobility Evaluation Bed Mobility Rolling Unable to perform Supine to and from Sit Unable to perform Transfers Sit to Stand Dependent Bed to Chair Transfers Dependent Wheelchair Management Type of Wheelchair standard 22x18 PT-OP-M Strength Start: 03/09/23 16:06 Freq: Status: Active Protocol: Document 03/09/23 16:06 AB (Rec: 03/09/23 17:37 AB [id number]) Shoulder Strength Shoulder Manual Muscle Testing Right Flexion 4 Good Extension 4 Good Abduction (C5) 4- Good- Left Flexion 4 Good Extension 4 Good Abduction (C5) 4- Good- Elbow/Forearm Strength Elbow and Forearm Manual Muscle Testing Right Flexion (C6) 4 Good Extension (C7) 4 Good Left Flexion (C6) 4 Good Extension (C7) 4 Good Hip Strength Hip Manual Muscle Testing Right Flexion (L2) 4- Good- Extension (S1) 3 Fair Abduction 3 Fair Adduction 3+ Fair+ External Rotation 3+ Fair+ Internal Rotation 3+ Fair+ Left Flexion (L2) 4- Good- Extension (S1) 3 Fair Abduction 3 Fair Adduction 3+ Fair+ External Rotation 3+ Fair+ Internal Rotation 3+ Fair+ Knee Strength Knee Manual Muscle Testing Right Flexion (S2) 3+ Fair+ Extension (L3) 4- Good- Left Flexion (S2) 3+ Fair+ Extension (L3) 4- Good- Ankle/Foot Strength Ankle and Foot Manual Muscle Testing Right Dorsiflexion (L4) 3+ Fair+ Plantarflexion (S1) 3+ Fair+ Left Dorsiflexion (L4) 3+ Fair+ Plantarflexion (S1) 3+ Fair+ PT-OP-Q Treatments Start: 03/09/23 16:06 Freq: Status: Active Protocol: Document 03/09/23 16:06 AB (Rec: 03/09/23 17:37 AB [id number]) Therapeutic Exercises Sitting Exercises Glute sets Side bilateral Reps/Minutes 1x10, 3 sec hold Hip ADD Sitting Exercise Name Hip ADD pillow squeeze Side bilateral Equipment Used pillow Reps/Minutes 1x10 3 sec hold Marching Side bilateral Resistance level 2 teal TB Reps/Minutes 1x10ea Clamshells Side bilateral Resistance level 2 teal TB Reps/Minutes 2x15 HS curls Side bilateral Resistance level 2 teal TB Reps/Minutes 1x10ea LAQs Side bilateral Resistance level 2 teal TB Reps/Minutes 2x10 ea Comments 1st set without TB, 2nd set with TB Ankle PF Side bilateral Resistance level 2 teal TB Reps/Minutes 1x10 ea PT-OP-T Assessment and Plan Start: 03/09/23 16:06 Freq: Status: Active Protocol: Document 03/09/23 16:06 AB (Rec: 03/09/23 17:37 AB [id number]) Physical Therapy Assessment Rehab Potential Rehabilitation Potential Fair Evaluation Complexity Number of Personal Factors/Comorbidities 3 or More Number of Body Systems Impaired 1-2 Clinical Presentation at Evaluation Stable Impairments Impairments Activity Tolerance,Balance, Functional Activities, Functional Mobility,Gait,ROM, Strength,Transfers Other Concerns Barriers to Rehabilitation level of motivation, PLOF Goals Four Impairment Functional mobility Short Term Goal (STG) Pt to be able to perform a stand pivot transfer with FWW and CGA in order to show improving level of function and to increase her independence. STG Duration 6 Skilled Nursing Goal (LTG) Pt to be able to perform a stand step transfer with FWW and CGA in order to show improving level of function and to increase her independence. LTG Duration 12 Three Impairment Functional mobility Short Term Goal (STG) Pt to be able to perform 1 STS with use of UEs in order to show improving strength and improving ability to perform functional mobility to increase her level of function . STG Duration 6 First Leveler Goal (LTG) Pt to be able to perform 3 STS with use of UEs in order to show improving strength and improving ability to perform functional mobility to increase her level of function . LTG Duration 12 Two Impairment LE Strength Short Term Goal (STG) Pt's gross LE MMT scores to improve to 4/5 or better to show improving strength in order to increase ability to perform functional mobility. STG Duration 6 Skilled Nursing Goal (LTG) Pt's gross LE MMT scores to improve to 4+/5 or better to show improving strength in order to increase ability to perform functional mobility. LTG Duration 12 One Impairment HEP Short Term Goal (STG) Pt to show independence with HEP as demonstrated by being able to recall 50% of exercises with proper form in order to progress in therapy and improve outcomes. STG Duration 2 Skilled Nursing Goal (LTG) Pt to show independence with HEP as demonstrated by being able to recall 80% or more of exercises with proper form in order to progress in therapy and improve outcomes. LTG Duration 4 Assessment Summary Assessment Sabiha Pierson is a 67 year old female patient presenting to outpatient PT clinic with complaints of weakness leading to decreased ability to perform functional mobility, which has worsened over the last year. Today's PT examination revealed significant LE weakness which is affecting her ability to perform functional mobility including bed mobility, STS, transfers and ambulation. However, the pt is able to propel wheelchair for household distances though she does so slowly. Based on today's findings, the pt would benefit from skilled PT to improve her deficits and to increase her level of function . Her rehab potential is guarded due to her motivation, PLOF, chronic nature of symptoms and medical comorbidities. Physical Therapy Plan Frequency and Duration Frequency of Treatment 2x/Week Duration of treatment (weeks) 12 Plan of Care Start Date 03/09/23 Plan of Care End Date 06/01/23 Therapeutic Interventions Therapeutic Interventions Balance Training,Gait Training ,Home Exercise Program,Manual Therapy,Neuromuscular Re- education,Patient/Caregiver Education,Self-Care/Home Management,Soft Tissue Mobilization,Taping, Therapeutic Activities, Therapeutic Exercises, Wheelchair Management Modalities Cold Pack/Ice Massage,Electric Stimulation,Hot Packs Next Visit Focus/Plan Next Note Type Treatment Note Next Visit Plan Review HEP. Perform therapeutic activities such as STS and possibly pre gait exercises.
--- NOTE | 2023-03-10 09:59 | PT.OPPOC ---
Physical, Occupational & Speech Therapy At [facility] Current Diagnoses Multiple sclerosis (03/09/23) Visit Care Team Role Provider Type Vasiliy Rubio DO Attending Provider Physician Family Provider Primary Care Provider Referring Provider Specialty: Family Practice Address: [address] [place] [address], [address], [address] Email: [email or web address] Plan Of Care PT-OP-T Assessment and Plan Start: 03/09/23 16:06 Freq: Status: Active Protocol: Document 03/09/23 16:06 AB (Rec: 03/09/23 17:37 AB [id number]) Physical Therapy Assessment Rehab Potential Rehabilitation Potential Fair Evaluation Complexity Number of Personal Factors/Comorbidities 3 or More Number of Body Systems Impaired 1-2 Clinical Presentation at Evaluation Stable Impairments Impairments Activity Tolerance,Balance, Functional Activities, Functional Mobility,Gait,ROM, Strength,Transfers Other Concerns Barriers to Rehabilitation level of motivation, PLOF Goals Four Impairment Functional mobility Short Term Goal (STG) Pt to be able to perform a stand pivot transfer with FWW and CGA in order to show improving level of function and to increase her independence. STG Duration 6 Long-Term Goal (LTG) Pt to be able to perform a stand step transfer with FWW and CGA in order to show improving level of function and to increase her independence. LTG Duration 12 Three Impairment Functional mobility Short Term Goal (STG) Pt to be able to perform 1 STS with use of UEs in order to show improving strength and improving ability to perform functional mobility to increase her level of function . STG Duration 6 Furniture Shampooer Goal (LTG) Pt to be able to perform 3 STS with use of UEs in order to show improving strength and improving ability to perform functional mobility to increase her level of function . LTG Duration 12 Two Impairment LE Strength Short Term Goal (STG) Pt's gross LE MMT scores to improve to 4/5 or better to show improving strength in order to increase ability to perform functional mobility. STG Duration 6 Furniture Shampooer Goal (LTG) Pt's gross LE MMT scores to improve to 4+/5 or better to show improving strength in order to increase ability to perform functional mobility. LTG Duration 12 One Impairment HEP Short Term Goal (STG) Pt to show independence with HEP as demonstrated by being able to recall 50% of exercises with proper form in order to progress in therapy and improve outcomes. STG Duration 2 Furniture Shampooer Goal (LTG) Pt to show independence with HEP as demonstrated by being able to recall 80% or more of exercises with proper form in order to progress in therapy and improve outcomes. LTG Duration 4 Assessment Summary Assessment Sabiha Pierson is a 67 year old female patient presenting to outpatient PT clinic with complaints of weakness leading to decreased ability to perform functional mobility, which has worsened over the last year. Today's PT examination revealed significant LE weakness which is affecting her ability to perform functional mobility including bed mobility, STS, transfers and ambulation. However, the pt is able to propel wheelchair for household distances though she does so slowly. Based on today's findings, the pt would benefit from skilled PT to improve her deficits and to increase her level of function . Her rehab potential is guarded due to her motivation, PLOF, chronic nature of symptoms and medical comorbidities. Physical Therapy Plan Frequency and Duration Frequency of Treatment 2x/Week Duration of treatment (weeks) 12 Plan of Care Start Date 03/09/23 Plan of Care End Date 06/01/23 Therapeutic Interventions Therapeutic Interventions Balance Training,Gait Training ,Home Exercise Program,Manual Therapy,Neuromuscular Re- education,Patient/Caregiver Education,Self-Care/Home Management,Soft Tissue Mobilization,Taping, Therapeutic Activities, Therapeutic Exercises, Wheelchair Management Modalities Cold Pack/Ice Massage,Electric Stimulation,Hot Packs Next Visit Focus/Plan Next Note Type Treatment Note Next Visit Plan Review HEP. Perform therapeutic activities such as STS and possibly pre gait exercises. Plan of Care Dates Plan of Care Start Date 03/09/23 Plan of Care End Date 06/01/23 Electronically Signed by: Keaton Baker, PT 03/10/23 0959 If you are in agreement with this Plan of Care, please return a signed and dated copy. I have reviewed this Plan of Care and certify that the skilled therapy services above are required to meet the patient?s needs. Physician Signature Date Printed Name and Credentials Clinical Instructor Signature Printed Name and Credentials
--- NOTE | 2023-03-11 18:12 | PT.OTN ---
Current Diagnoses Multiple sclerosis (03/11/23) Physical Therapy Treatment Note PT-OP-A Visit Information Start: 03/09/23 16:06 Freq: Status: Active Protocol: Document 03/11/23 17:58 AB (Rec: 03/11/23 18:12 AB [id number]) Out-Patient Physical Therapy Visit Information Visit Information Visit Type Treatment Note Visit Start Time 16:15 Visit Stop Time 17:00 Total Visit Minutes 45 Visit Number 1 Number of [employer] Visits 0 PT-OP-B Current Condition Start: 03/09/23 16:06 Freq: Status: Active Protocol: Document 03/09/23 16:06 AB (Rec: 03/09/23 17:37 AB [id number]) Current Condition History of Current Condition Onset Date Chronic Current Complaints Denies pain currently History of Current Condition The pt and the pt's sister ( CLAUDIA) report over the last year she has become unmotivated to continue with her PT exercises or to move out of her chair in general. Because of her lack of activity, she has lost the ability to transfer out of her chair or perform any functional mobility. However, she is able to propel her wheelchair for short distances and at a slow speed. Currently she requires assistance for all of her ADLs due to her weakness. Prior Treatments and Tests PT 1 year ago Treatment Goals Patient/Caregiver Goals To be able to stand up, transfer from wheel chair and walk. Prior Functional Status Baseline Function- ADL's Needs Assist Baseline Function- Mobility Needs Assist Baseline Function- Gait Has used W/C for 3-4 years Current Functional Impairments (Reported) Functional Limitations- ADL's Requires assisstance for all ADLs Functional Limitations- Mobility/Gait Uses wheelchair for locomotion ; able to propel W/C for 200ft Functional Limitations- Recreation/ Does not participate in any Hobbies activities due to level of function PT-OP-C Subjective Start: 03/09/23 16:06 Freq: Status: Active Protocol: Document 03/11/23 17:58 AB (Rec: 03/11/23 18:12 AB [id number]) OP-PT Subjective Patient Comments Patient Comments The pt and the pt's sister report she was not able to complete her HEP, only some of them, due to lack of motivation. The pt denies any symptoms currently. PT-OP-G Mobility & Gait Start: 03/09/23 16:06 Freq: Status: Active Protocol: Document 03/09/23 16:06 AB (Rec: 03/09/23 17:37 AB [id number]) OP Mobility Evaluation Bed Mobility Rolling Unable to perform Supine to and from Sit Unable to perform Transfers Sit to Stand Dependent Bed to Chair Transfers Dependent Wheelchair Management Type of Wheelchair standard 22x18 PT-OP-M Strength Start: 03/09/23 16:06 Freq: Status: Active Protocol: Document 03/09/23 16:06 AB (Rec: 03/09/23 17:37 AB [id number]) Shoulder Strength Shoulder Manual Muscle Testing Right Flexion 4 Good Extension 4 Good Abduction (C5) 4- Good- Left Flexion 4 Good Extension 4 Good Abduction (C5) 4- Good- Elbow/Forearm Strength Elbow and Forearm Manual Muscle Testing Right Flexion (C6) 4 Good Extension (C7) 4 Good Left Flexion (C6) 4 Good Extension (C7) 4 Good Hip Strength Hip Manual Muscle Testing Right Flexion (L2) 4- Good- Extension (S1) 3 Fair Abduction 3 Fair Adduction 3+ Fair+ External Rotation 3+ Fair+ Internal Rotation 3+ Fair+ Left Flexion (L2) 4- Good- Extension (S1) 3 Fair Abduction 3 Fair Adduction 3+ Fair+ External Rotation 3+ Fair+ Internal Rotation 3+ Fair+ Knee Strength Knee Manual Muscle Testing Right Flexion (S2) 3+ Fair+ Extension (L3) 4- Good- Left Flexion (S2) 3+ Fair+ Extension (L3) 4- Good- Ankle/Foot Strength Ankle and Foot Manual Muscle Testing Right Dorsiflexion (L4) 3+ Fair+ Plantarflexion (S1) 3+ Fair+ Left Dorsiflexion (L4) 3+ Fair+ Plantarflexion (S1) 3+ Fair+ PT-OP-Q Treatments Start: 03/09/23 16:06 Freq: Status: Active Protocol: Document 03/11/23 17:58 AB (Rec: 03/11/23 18:12 AB [id number]) Therapeutic Activity Therapeutic Activity Stand pivot transfer Comments Attempted to transfer from wheelchair to recumbent ellipitcal, however this failed, and the pt was assisted to the floor. See assessment for more details. Wheelchair Management Treatment Wheelchair Activity W/c education Activity Description Pt and pt's sister were educated on condition of breaks and of wheels self-propulsion Activity Description 5 Equipment Used manual wheelchair Level of Assistance SBA Surface even Distance/Duration 100 Comments To and from gym at the beginning and end of the session PT-OP-T Assessment and Plan Start: 03/09/23 16:06 Freq: Status: Active Protocol: Document 03/11/23 17:58 AB (Rec: 03/11/23 18:12 AB [id number]) Physical Therapy Assessment Rehab Potential Rehabilitation Potential Fair Evaluation Complexity Number of Personal Factors/Comorbidities 3 or More Number of Body Systems Impaired 1-2 Clinical Presentation at Evaluation Stable Impairments Impairments Activity Tolerance,Balance, Functional Activities, Functional Mobility,Gait,ROM, Strength,Transfers Goals Four Impairment Functional mobility Short Term Goal (STG) Pt to be able to perform a stand pivot transfer with FWW and CGA in order to show improving level of function and to increase her independence. STG Duration 6 Assisted Goal (LTG) Pt to be able to perform a stand step transfer with FWW and CGA in order to show improving level of function and to increase her independence. LTG Duration 12 Three Impairment Functional mobility Short Term Goal (STG) Pt to be able to perform 1 STS with use of UEs in order to show improving strength and improving ability to perform functional mobility to increase her level of function . STG Duration 6 Spray Blender Goal (LTG) Pt to be able to perform 3 STS with use of UEs in order to show improving strength and improving ability to perform functional mobility to increase her level of function . LTG Duration 12 Two Impairment LE Strength Short Term Goal (STG) Pt's gross LE MMT scores to improve to 4/5 or better to show improving strength in order to increase ability to perform functional mobility. STG Duration 6 Assisted Goal (LTG) Pt's gross LE MMT scores to improve to 4+/5 or better to show improving strength in order to increase ability to perform functional mobility. LTG Duration 12 One Impairment HEP Short Term Goal (STG) Pt to show independence with HEP as demonstrated by being able to recall 50% of exercises with proper form in order to progress in therapy and improve outcomes. STG Duration 2 Spray Blender Goal (LTG) Pt to show independence with HEP as demonstrated by being able to recall 80% or more of exercises with proper form in order to progress in therapy and improve outcomes. LTG Duration 4 Assessment Summary Assessment After talking to the pt about her current symptoms and her HEP, a transfer from her w/c to recumbent elliptical was attempted. After donning gait belt, educating and explaining transfer steps and technique to the pt, placing w/c brakes and proper set up for transfer , the transfer was attempted, however the pt was unable to swing her hips to the recumbent elliptical. Upon attempting to return to w/c, the w/c slid behind the pt due to faulty breaks, and the PT assisted the pt to the floor. Once safely on the floor, the pt was asked whether injuries were sustained or if she required medical assistance, however the pt denied both. The physical therapy nurse brought the Alvina lift in order to assist the pt back to her wheelchair. The pt was safely and successfully transferred from the floor to her wheelchair. The pt again denied any injuries or pain when asked but the PT and the physical therapy nurse. The pt and the pt's sister were educated on the faulty w/c brakes in order to take precautions, as it appears that the tires are too worn for the brakes to create enough friction, since the brakes do not appear to be loose. The pt was again asked whether she had any pain or injuries and she denied all. The pt was able to propel herself out of the clinic with her sister with her. This incident was documented in an incident report. Physical Therapy Plan Frequency and Duration Frequency of Treatment 2x/Week Duration of treatment (weeks) 12 Plan of Care Start Date 03/09/23 Plan of Care End Date 06/01/23 Therapeutic Interventions Therapeutic Interventions Balance Training,Gait Training ,Home Exercise Program,Manual Therapy,Neuromuscular Re- education,Patient/Caregiver Education,Self-Care/Home Management,Soft Tissue Mobilization,Taping, Therapeutic Activities, Therapeutic Exercises, Wheelchair Management Modalities Cold Pack/Ice Massage,Electric Stimulation,Hot Packs Next Visit Focus/Plan Next Note Type Treatment Note Next Visit Plan Review HEP. Perform therapeutic activities such as STS and possibly pre gait exercises.
--- NOTE | 2023-03-18 17:20 | PT.OTN ---
Current Diagnoses Multiple sclerosis (03/18/23) Physical Therapy Treatment Note PT-OP-A Visit Information Start: 03/09/23 16:06 Freq: Status: Active Protocol: Document 03/18/23 16:25 AB (Rec: 03/18/23 17:20 AB [id number]) Out-Patient Physical Therapy Visit Information Visit Information Visit Type Treatment Note Visit Start Time 16:15 Visit Stop Time 17:00 Total Visit Minutes 45 Visit Number 3 Number of TRICOT KNITTER Visits 0 Precautions Precautions Secondary progressive MS PT-OP-B Current Condition Start: 03/09/23 16:06 Freq: Status: Active Protocol: Document 03/09/23 16:06 AB (Rec: 03/09/23 17:37 AB [id number]) Current Condition History of Current Condition Onset Date Chronic Current Complaints Denies pain currently History of Current Condition The pt and the pt's sister ( CLAUDIA) report over the last year she has become unmotivated to continue with her PT exercises or to move out of her chair in general. Because of her lack of activity, she has lost the ability to transfer out of her chair or perform any functional mobility. However, she is able to propel her wheelchair for short distances and at a slow speed. Currently she requires assistance for all of her ADLs due to her weakness. Prior Treatments and Tests PT 1 year ago Treatment Goals Patient/Caregiver Goals To be able to stand up, transfer from wheel chair and walk. Prior Functional Status Baseline Function- ADL's Needs Assist Baseline Function- Mobility Needs Assist Baseline Function- Gait Has used W/C for 3-4 years Current Functional Impairments (Reported) Functional Limitations- ADL's Requires assisstance for all ADLs Functional Limitations- Mobility/Gait Uses wheelchair for locomotion ; able to propel W/C for 200ft Functional Limitations- Recreation/ Does not participate in any Hobbies activities due to level of function PT-OP-C Subjective Start: 03/09/23 16:06 Freq: Status: Active Protocol: Document 03/18/23 16:25 AB (Rec: 03/18/23 17:20 AB [id number]) OP-PT Subjective Patient Comments Patient Comments The pt reports she did not have any pain or injuries upon arriving home after last visit. She denies any new symptoms. The pt also reports she has been able to more of her exercises but is unable to report how often she is performing them. PT-OP-G Mobility & Gait Start: 03/09/23 16:06 Freq: Status: Active Protocol: Document 03/09/23 16:06 AB (Rec: 03/09/23 17:37 AB [id number]) OP Mobility Evaluation Bed Mobility Rolling Unable to perform Supine to and from Sit Unable to perform Transfers Sit to Stand Dependent Bed to Chair Transfers Dependent Wheelchair Management Type of Wheelchair standard 22x18 PT-OP-M Strength Start: 03/09/23 16:06 Freq: Status: Active Protocol: Document 03/09/23 16:06 AB (Rec: 03/09/23 17:37 AB [id number]) Shoulder Strength Shoulder Manual Muscle Testing Right Flexion 4 Good Extension 4 Good Abduction (C5) 4- Good- Left Flexion 4 Good Extension 4 Good Abduction (C5) 4- Good- Elbow/Forearm Strength Elbow and Forearm Manual Muscle Testing Right Flexion (C6) 4 Good Extension (C7) 4 Good Left Flexion (C6) 4 Good Extension (C7) 4 Good Hip Strength Hip Manual Muscle Testing Right Flexion (L2) 4- Good- Extension (S1) 3 Fair Abduction 3 Fair Adduction 3+ Fair+ External Rotation 3+ Fair+ Internal Rotation 3+ Fair+ Left Flexion (L2) 4- Good- Extension (S1) 3 Fair Abduction 3 Fair Adduction 3+ Fair+ External Rotation 3+ Fair+ Internal Rotation 3+ Fair+ Knee Strength Knee Manual Muscle Testing Right Flexion (S2) 3+ Fair+ Extension (L3) 4- Good- Left Flexion (S2) 3+ Fair+ Extension (L3) 4- Good- Ankle/Foot Strength Ankle and Foot Manual Muscle Testing Right Dorsiflexion (L4) 3+ Fair+ Plantarflexion (S1) 3+ Fair+ Left Dorsiflexion (L4) 3+ Fair+ Plantarflexion (S1) 3+ Fair+ PT-OP-Q Treatments Start: 03/09/23 16:06 Freq: Status: Active Protocol: Document 03/18/23 16:25 AB (Rec: 03/18/23 17:20 AB [id number]) Therapeutic Exercises Sitting Exercises TB rows Side bilateral Resistance level 2 TB Reps/Minutes 2x15 Elbow extension Side bilateral Resistance level 2 TB Reps/Minutes 2x10 ea W/c pushups Side bilateral Reps/Minutes 2x10 Glute sets Side bilateral Reps/Minutes 2x15, 3 sec hold Hip ADD Sitting Exercise Name Hip ADD pillow squeeze Side bilateral Equipment Used small blue ball Reps/Minutes 2x15 3 sec hold Marching Side bilateral Resistance level 2 teal TB Reps/Minutes 2x10ea Clamshells Side bilateral Resistance level 2 teal TB Reps/Minutes 2x15 HS curls Side bilateral Resistance level 2 teal TB Reps/Minutes 2x10ea LAQs Side bilateral Reps/Minutes 2x10 ea Comments unable to perform with TB today Ankle PF Side bilateral Resistance level 2 teal TB Reps/Minutes 2x15 PT-OP-T Assessment and Plan Start: 03/09/23 16:06 Freq: Status: Active Protocol: Document 03/18/23 16:25 AB (Rec: 03/18/23 17:20 AB [id number]) Physical Therapy Assessment Goals Four Impairment Functional mobility Short Term Goal (STG) Pt to be able to perform a stand pivot transfer with FWW and CGA in order to show improving level of function and to increase her independence. STG Duration 6 Group Home Goal (LTG) Pt to be able to perform a stand step transfer with FWW and CGA in order to show improving level of function and to increase her independence. LTG Duration 12 Three Impairment Functional mobility Short Term Goal (STG) Pt to be able to perform 1 STS with use of UEs in order to show improving strength and improving ability to perform functional mobility to increase her level of function . STG Duration 6 Group Home Goal (LTG) Pt to be able to perform 3 STS with use of UEs in order to show improving strength and improving ability to perform functional mobility to increase her level of function . LTG Duration 12 Two Impairment LE Strength Short Term Goal (STG) Pt's gross LE MMT scores to improve to 4/5 or better to show improving strength in order to increase ability to perform functional mobility. STG Duration 6 Broke Beater Goal (LTG) Pt's gross LE MMT scores to improve to 4+/5 or better to show improving strength in order to increase ability to perform functional mobility. LTG Duration 12 One Impairment HEP Short Term Goal (STG) Pt to show independence with HEP as demonstrated by being able to recall 50% of exercises with proper form in order to progress in therapy and improve outcomes. STG Duration 2 Group Home Goal (LTG) Pt to show independence with HEP as demonstrated by being able to recall 80% or more of exercises with proper form in order to progress in therapy and improve outcomes. LTG Duration 4 Assessment Summary Assessment The focus of today's session was on reviewing HEP, as there wasn't time for this last session. The pt was unable to perform marching and LAQs with TB, therefore this was removed in favor of performing exercises through her full ROM. UE strengthening exercises were added today to improve her ability to perform functional mobility. The pt had good tolerance, and denied any symptoms. She requires intermittent cues to perform exercises with control due to muscular weakness, especially exercises using TB for resistance. The pt continues to benefit from skilled PT to increase her level of function . Physical Therapy Plan Frequency and Duration Frequency of Treatment 2x/Week Duration of treatment (weeks) 12 Plan of Care Start Date 03/09/23 Plan of Care End Date 06/01/23 Therapeutic Interventions Therapeutic Interventions Balance Training,Gait Training ,Home Exercise Program,Manual Therapy,Neuromuscular Re- education,Patient/Caregiver Education,Self-Care/Home Management,Soft Tissue Mobilization,Taping, Therapeutic Activities, Therapeutic Exercises, Wheelchair Management Modalities Cold Pack/Ice Massage,Electric Stimulation,Hot Packs Next Visit Focus/Plan Next Note Type Treatment Note Next Visit Plan Perform therapeutic activities such as STS and possibly pre gait exercises.
--- NOTE | 2023-03-23 18:01 | PT.OTN ---
Current Diagnoses Multiple sclerosis (03/23/23) Physical Therapy Treatment Note PT-OP-A Visit Information Start: 03/09/23 16:06 Freq: Status: Active Protocol: Document 03/23/23 17:53 AB (Rec: 03/23/23 18:01 AB [id number]) Out-Patient Physical Therapy Visit Information Visit Information Visit Type Treatment Note Visit Note Pt arrived 20 mins late due to transportation issues at [facility]. Visit Start Time 16:35 Visit Stop Time 17:00 Total Visit Minutes 25 Visit Number 3 Number of SUPERINTENDENT METERS Visits 0 PT-OP-B Current Condition Start: 03/09/23 16:06 Freq: Status: Active Protocol: Document 03/09/23 16:06 AB (Rec: 03/09/23 17:37 AB [id number]) Current Condition History of Current Condition Onset Date Chronic Current Complaints Denies pain currently History of Current Condition The pt and the pt's sister ( CLAUDIA) report over the last year she has become unmotivated to continue with her PT exercises or to move out of her chair in general. Because of her lack of activity, she has lost the ability to transfer out of her chair or perform any functional mobility. However, she is able to propel her wheelchair for short distances and at a slow speed. Currently she requires assistance for all of her ADLs due to her weakness. Prior Treatments and Tests PT 1 year ago Treatment Goals Patient/Caregiver Goals To be able to stand up, transfer from wheel chair and walk. Prior Functional Status Baseline Function- ADL's Needs Assist Baseline Function- Mobility Needs Assist Baseline Function- Gait Has used W/C for 3-4 years Current Functional Impairments (Reported) Functional Limitations- ADL's Requires assisstance for all ADLs Functional Limitations- Mobility/Gait Uses wheelchair for locomotion ; able to propel W/C for 200ft Functional Limitations- Recreation/ Does not participate in any Hobbies activities due to level of function PT-OP-C Subjective Start: 03/09/23 16:06 Freq: Status: Active Protocol: Document 03/23/23 17:53 AB (Rec: 03/23/23 18:01 AB [id number]) OP-PT Subjective Patient Comments Patient Comments The pt reports she has been much better at completing her HEP. She denies any symptoms today. PT-OP-G Mobility & Gait Start: 03/09/23 16:06 Freq: Status: Active Protocol: Document 03/09/23 16:06 AB (Rec: 03/09/23 17:37 AB [id number]) OP Mobility Evaluation Bed Mobility Rolling Unable to perform Supine to and from Sit Unable to perform Transfers Sit to Stand Dependent Bed to Chair Transfers Dependent Wheelchair Management Type of Wheelchair standard 22x18 PT-OP-M Strength Start: 03/09/23 16:06 Freq: Status: Active Protocol: Document 03/09/23 16:06 AB (Rec: 03/09/23 17:37 AB [id number]) Shoulder Strength Shoulder Manual Muscle Testing Right Flexion 4 Good Extension 4 Good Abduction (C5) 4- Good- Left Flexion 4 Good Extension 4 Good Abduction (C5) 4- Good- Elbow/Forearm Strength Elbow and Forearm Manual Muscle Testing Right Flexion (C6) 4 Good Extension (C7) 4 Good Left Flexion (C6) 4 Good Extension (C7) 4 Good Hip Strength Hip Manual Muscle Testing Right Flexion (L2) 4- Good- Extension (S1) 3 Fair Abduction 3 Fair Adduction 3+ Fair+ External Rotation 3+ Fair+ Internal Rotation 3+ Fair+ Left Flexion (L2) 4- Good- Extension (S1) 3 Fair Abduction 3 Fair Adduction 3+ Fair+ External Rotation 3+ Fair+ Internal Rotation 3+ Fair+ Knee Strength Knee Manual Muscle Testing Right Flexion (S2) 3+ Fair+ Extension (L3) 4- Good- Left Flexion (S2) 3+ Fair+ Extension (L3) 4- Good- Ankle/Foot Strength Ankle and Foot Manual Muscle Testing Right Dorsiflexion (L4) 3+ Fair+ Plantarflexion (S1) 3+ Fair+ Left Dorsiflexion (L4) 3+ Fair+ Plantarflexion (S1) 3+ Fair+ PT-OP-Q Treatments Start: 03/09/23 16:06 Freq: Status: Active Protocol: Document 03/23/23 17:53 AB (Rec: 03/23/23 18:01 AB [id number]) Cardio Equipment Recumbent Stepper (Sci-Fit) Duration (Minutes) 6 Resistance 0 Seat Position wheelchair Therapeutic Activity Therapeutic Activity Standing Name Standing in // bars using lift Reps/Minutes 2x5 min Comments Extended amount of time required to don sling. Worked on having pt push through legs to increase tolerance to weight bearing. PT-OP-T Assessment and Plan Start: 03/09/23 16:06 Freq: Status: Active Protocol: Document 03/23/23 17:53 AB (Rec: 03/23/23 18:01 AB [id number]) Physical Therapy Assessment Goals Four Impairment Functional mobility Short Term Goal (STG) Pt to be able to perform a stand pivot transfer with FWW and CGA in order to show improving level of function and to increase her independence. STG Duration 6 Correction Goal (LTG) Pt to be able to perform a stand step transfer with FWW and CGA in order to show improving level of function and to increase her independence. LTG Duration 12 Three Impairment Functional mobility Short Term Goal (STG) Pt to be able to perform 1 STS with use of UEs in order to show improving strength and improving ability to perform functional mobility to increase her level of function . STG Duration 6 Early Childhood Education Specialist Goal (LTG) Pt to be able to perform 3 STS with use of UEs in order to show improving strength and improving ability to perform functional mobility to increase her level of function . LTG Duration 12 Two Impairment LE Strength Short Term Goal (STG) Pt's gross LE MMT scores to improve to 4/5 or better to show improving strength in order to increase ability to perform functional mobility. STG Duration 6 Correction Goal (LTG) Pt's gross LE MMT scores to improve to 4+/5 or better to show improving strength in order to increase ability to perform functional mobility. LTG Duration 12 One Impairment HEP Short Term Goal (STG) Pt to show independence with HEP as demonstrated by being able to recall 50% of exercises with proper form in order to progress in therapy and improve outcomes. STG Duration 2 Correction Goal (LTG) Pt to show independence with HEP as demonstrated by being able to recall 80% or more of exercises with proper form in order to progress in therapy and improve outcomes. LTG Duration 4 Assessment Summary Assessment The pt was able to successfully use recumbent stepper with BLE and BUE to improve strength and endurance , though she required one short break due to fatigue. Today's session focused on trialing standing in // bars with lift in order to improve tolerance to standing/weight bearing. The pt had difficulty pushing through LEs even with assistance from lift. However , this should be tried again with adjustments to lift to improve fit for the pt. She would also benefit from addition of core strengthening exercises to improve her ability to perform functional mobility.
--- NOTE | 2023-04-01 17:30 | PT.OTN ---
Current Diagnoses Multiple sclerosis (04/01/23) Physical Therapy Treatment Note PT-OP-A Visit Information Start: 03/09/23 16:06 Freq: Status: Active Protocol: Document 04/01/23 16:15 AB (Rec: 04/06/23 11:38 AB [id number]) Out-Patient Physical Therapy Visit Information Visit Information Visit Type Treatment Note Visit Start Time 16:15 Visit Stop Time 17:00 Total Visit Minutes 45 Visit Number 4 PT-OP-B Current Condition Start: 03/09/23 16:06 Freq: Status: Active Protocol: Document 03/09/23 16:06 AB (Rec: 03/09/23 17:37 AB [id number]) Current Condition History of Current Condition Onset Date Chronic Current Complaints Denies pain currently History of Current Condition The pt and the pt's sister ( CLAUDIA) report over the last year she has become unmotivated to continue with her PT exercises or to move out of her chair in general. Because of her lack of activity, she has lost the ability to transfer out of her chair or perform any functional mobility. However, she is able to propel her wheelchair for short distances and at a slow speed. Currently she requires assistance for all of her ADLs due to her weakness. Prior Treatments and Tests PT 1 year ago Treatment Goals Patient/Caregiver Goals To be able to stand up, transfer from wheel chair and walk. Prior Functional Status Baseline Function- ADL's Needs Assist Baseline Function- Mobility Needs Assist Baseline Function- Gait Has used W/C for 3-4 years Current Functional Impairments (Reported) Functional Limitations- ADL's Requires assisstance for all ADLs Functional Limitations- Mobility/Gait Uses wheelchair for locomotion ; able to propel W/C for 200ft Functional Limitations- Recreation/ Does not participate in any Hobbies activities due to level of function PT-OP-C Subjective Start: 03/09/23 16:06 Freq: Status: Active Protocol: Document 04/01/23 16:15 AB (Rec: 04/06/23 11:38 AB [id number]) OP-PT Subjective Patient Comments Patient Comments The pt reports no significant change since her last visit. PT-OP-G Mobility & Gait Start: 03/09/23 16:06 Freq: Status: Active Protocol: Document 03/09/23 16:06 AB (Rec: 03/09/23 17:37 AB [id number]) OP Mobility Evaluation Bed Mobility Rolling Unable to perform Supine to and from Sit Unable to perform Transfers Sit to Stand Dependent Bed to Chair Transfers Dependent Wheelchair Management Type of Wheelchair standard 22x18 PT-OP-M Strength Start: 03/09/23 16:06 Freq: Status: Active Protocol: Document 03/09/23 16:06 AB (Rec: 03/09/23 17:37 AB [id number]) Shoulder Strength Shoulder Manual Muscle Testing Right Flexion 4 Good Extension 4 Good Abduction (C5) 4- Good- Left Flexion 4 Good Extension 4 Good Abduction (C5) 4- Good- Elbow/Forearm Strength Elbow and Forearm Manual Muscle Testing Right Flexion (C6) 4 Good Extension (C7) 4 Good Left Flexion (C6) 4 Good Extension (C7) 4 Good Hip Strength Hip Manual Muscle Testing Right Flexion (L2) 4- Good- Extension (S1) 3 Fair Abduction 3 Fair Adduction 3+ Fair+ External Rotation 3+ Fair+ Internal Rotation 3+ Fair+ Left Flexion (L2) 4- Good- Extension (S1) 3 Fair Abduction 3 Fair Adduction 3+ Fair+ External Rotation 3+ Fair+ Internal Rotation 3+ Fair+ Knee Strength Knee Manual Muscle Testing Right Flexion (S2) 3+ Fair+ Extension (L3) 4- Good- Left Flexion (S2) 3+ Fair+ Extension (L3) 4- Good- Ankle/Foot Strength Ankle and Foot Manual Muscle Testing Right Dorsiflexion (L4) 3+ Fair+ Plantarflexion (S1) 3+ Fair+ Left Dorsiflexion (L4) 3+ Fair+ Plantarflexion (S1) 3+ Fair+ PT-OP-Q Treatments Start: 03/09/23 16:06 Freq: Status: Active Protocol: Document 04/01/23 16:15 AB (Rec: 04/06/23 11:38 AB [id number]) Cardio Equipment Recumbent Stepper (Sci-Fit) Duration (Minutes) 5 Resistance 0 Seat Position wheelchair Therapeutic Exercises Sitting Exercises Cross body reaching Side bilateral Reps/Minutes 2x10 Comments Pt reaches to opposite front wheel Side crunches Side bilateral Reps/Minutes 2x10 Comments Pt reaches down laterally to front wheel Trunk flex/ext Reps/Minutes 2x10 Comments Pt and PT hold on to bar, PT provides resistance to both motions Therapeutic Activity Therapeutic Activity Standing Name Standing in // bars using lift Reps/Minutes 2x5 min Comments Extended amount of time required to don sling. Worked on having pt push through legs to increase tolerance to weight bearing. However, unable to perform much standing due to not being able to don sling correctly, as pt does not have the trunk or UE strength to lean forward far enough. PT-OP-T Assessment and Plan Start: 03/09/23 16:06 Freq: Status: Active Protocol: Document 04/01/23 16:15 AB (Rec: 04/06/23 11:38 AB [id number]) Physical Therapy Assessment Goals Four Impairment Functional mobility Short Term Goal (STG) Pt to be able to perform a stand pivot transfer with FWW and CGA in order to show improving level of function and to increase her independence. STG Duration 6 [employer] Commerce Architect Goal (LTG) Pt to be able to perform a stand step transfer with FWW and CGA in order to show improving level of function and to increase her independence. LTG Duration 12 Three Impairment Functional mobility Short Term Goal (STG) Pt to be able to perform 1 STS with use of UEs in order to show improving strength and improving ability to perform functional mobility to increase her level of function . STG Duration 6 [facility] Goal (LTG) Pt to be able to perform 3 STS with use of UEs in order to show improving strength and improving ability to perform functional mobility to increase her level of function . LTG Duration 12 Two Impairment LE Strength Short Term Goal (STG) Pt's gross LE MMT scores to improve to 4/5 or better to show improving strength in order to increase ability to perform functional mobility. STG Duration 6 [facility] Goal (LTG) Pt's gross LE MMT scores to improve to 4+/5 or better to show improving strength in order to increase ability to perform functional mobility. LTG Duration 12 One Impairment HEP Short Term Goal (STG) Pt to show independence with HEP as demonstrated by being able to recall 50% of exercises with proper form in order to progress in therapy and improve outcomes. STG Duration 2 [facility] Goal (LTG) Pt to show independence with HEP as demonstrated by being able to recall 80% or more of exercises with proper form in order to progress in therapy and improve outcomes. LTG Duration 4 Assessment Summary Assessment Standing with lift was again attempted today, but was unsuccessful again, as it is difficult to don the sling due to poor core and UE strength. The remainder of the session, focused on improving core/UE strength, in order to improve her ability to perform functional mobility. The pt would benefit from additional core and UE strengthening exercises. Physical Therapy Plan Frequency and Duration Frequency of Treatment 2x/Week Duration of treatment (weeks) 12 Plan of Care Start Date 03/09/23 Plan of Care End Date 06/01/23 Therapeutic Interventions Therapeutic Interventions Balance Training,Gait Training ,Home Exercise Program,Manual Therapy,Neuromuscular Re- education,Patient/Caregiver Education,Self-Care/Home Management,Soft Tissue Mobilization,Taping, Therapeutic Activities, Therapeutic Exercises, Wheelchair Management Modalities Cold Pack/Ice Massage,Electric Stimulation,Hot Packs Next Visit Focus/Plan Next Note Type Treatment Note Next Visit Plan Add core and UE strengthening exercises as able.
--- NOTE | 2023-04-20 17:15 | PT.OTN ---
Current Diagnoses Multiple sclerosis (04/20/23) Physical Therapy Treatment Note PT-OP-A Visit Information Start: 03/09/23 16:06 Freq: Status: Active Protocol: Document 04/20/23 16:30 AB (Rec: 04/22/23 10:48 AB [id number]) Out-Patient Physical Therapy Visit Information Visit Information Visit Type Treatment Note Visit Note Pt arrived 15 minutes late due to transportation issues. Visit Start Time 16:30 Visit Stop Time 17:00 Total Visit Minutes 30 Visit Number 5 Evaluation Information Evaluation Date 03/09/23 PT-OP-B Current Condition Start: 03/09/23 16:06 Freq: Status: Active Protocol: Document 03/09/23 16:06 AB (Rec: 03/09/23 17:37 AB [id number]) Current Condition History of Current Condition Onset Date Chronic Current Complaints Denies pain currently History of Current Condition The pt and the pt's sister ( CLAUDIA) report over the last year she has become unmotivated to continue with her PT exercises or to move out of her chair in general. Because of her lack of activity, she has lost the ability to transfer out of her chair or perform any functional mobility. However, she is able to propel her wheelchair for short distances and at a slow speed. Currently she requires assistance for all of her ADLs due to her weakness. Prior Treatments and Tests PT 1 year ago Treatment Goals Patient/Caregiver Goals To be able to stand up, transfer from wheel chair and walk. Prior Functional Status Baseline Function- ADL's Needs Assist Baseline Function- Mobility Needs Assist Baseline Function- Gait Has used W/C for 3-4 years Current Functional Impairments (Reported) Functional Limitations- ADL's Requires assistance for all ADLs Functional Limitations- Mobility/Gait Uses wheelchair for locomotion ; able to propel W/C for 200ft Functional Limitations- Recreation/ Does not participate in any Hobbies activities due to level of function PT-OP-C Subjective Start: 03/09/23 16:06 Freq: Status: Active Protocol: Document 04/20/23 16:30 AB (Rec: 04/22/23 10:48 AB [id number]) OP-PT Subjective Patient Comments Patient Comments The pt again reports no significant changes since last visit, and reports she continues to perform her HEP. PT-OP-G Mobility & Gait Start: 03/09/23 16:06 Freq: Status: Active Protocol: Document 03/09/23 16:06 AB (Rec: 03/09/23 17:37 AB [id number]) OP Mobility Evaluation Bed Mobility Rolling Unable to perform Supine to and from Sit Unable to perform Transfers Sit to Stand Dependent Bed to Chair Transfers Dependent Wheelchair Management Type of Wheelchair standard 22x18 PT-OP-M Strength Start: 03/09/23 16:06 Freq: Status: Active Protocol: Document 03/09/23 16:06 AB (Rec: 03/09/23 17:37 AB [id number]) Shoulder Strength Shoulder Manual Muscle Testing Right Flexion 4 Good Extension 4 Good Abduction (C5) 4- Good- Left Flexion 4 Good Extension 4 Good Abduction (C5) 4- Good- Elbow/Forearm Strength Elbow and Forearm Manual Muscle Testing Right Flexion (C6) 4 Good Extension (C7) 4 Good Left Flexion (C6) 4 Good Extension (C7) 4 Good Hip Strength Hip Manual Muscle Testing Right Flexion (L2) 4- Good- Extension (S1) 3 Fair Abduction 3 Fair Adduction 3+ Fair+ External Rotation 3+ Fair+ Internal Rotation 3+ Fair+ Left Flexion (L2) 4- Good- Extension (S1) 3 Fair Abduction 3 Fair Adduction 3+ Fair+ External Rotation 3+ Fair+ Internal Rotation 3+ Fair+ Knee Strength Knee Manual Muscle Testing Right Flexion (S2) 3+ Fair+ Extension (L3) 4- Good- Left Flexion (S2) 3+ Fair+ Extension (L3) 4- Good- Ankle/Foot Strength Ankle and Foot Manual Muscle Testing Right Dorsiflexion (L4) 3+ Fair+ Plantarflexion (S1) 3+ Fair+ Left Dorsiflexion (L4) 3+ Fair+ Plantarflexion (S1) 3+ Fair+ PT-OP-Q Treatments Start: 03/09/23 16:06 Freq: Status: Active Protocol: Document 04/20/23 16:30 AB (Rec: 04/22/23 10:48 AB [id number]) Cardio Equipment Recumbent Stepper (Sci-Fit) Duration (Minutes) 5 Resistance 0 Seat Position wheelchair Therapeutic Exercises Sitting Exercises Shoulder flexion Side bilateral Resistance 5# DB Reps/Minutes 2x10 TB ext Side bilateral Resistance org TB Equipment Used 2x15 Side crunches Side bilateral Reps/Minutes 2x10 Comments Pt reaches down laterally to front wheel Trunk flex/ext Reps/Minutes 2x10 Comments Pt and PT hold on to bar, PT provides resistance to both motions TB rows Side bilateral Resistance org TB, [place] grn TB Reps/Minutes 1x15, 1x15 PT-OP-T Assessment and Plan Start: 03/09/23 16:06 Freq: Status: Active Protocol: Document 04/20/23 16:30 AB (Rec: 04/22/23 10:48 AB [id number]) Physical Therapy Assessment Goals Four Impairment Functional mobility Short Term Goal (STG) Pt to be able to perform a stand pivot transfer with FWW and CGA in order to show improving level of function and to increase her independence. STG Duration 6 Senior Care Goal (LTG) Pt to be able to perform a stand step transfer with FWW and CGA in order to show improving level of function and to increase her independence. LTG Duration 12 Three Impairment Functional mobility Short Term Goal (STG) Pt to be able to perform 1 STS with use of UEs in order to show improving strength and improving ability to perform functional mobility to increase her level of function . STG Duration 6 Senior Care Goal (LTG) Pt to be able to perform 3 STS with use of UEs in order to show improving strength and improving ability to perform functional mobility to increase her level of function . LTG Duration 12 Two Impairment LE Strength Short Term Goal (STG) Pt's gross LE MMT scores to improve to 4/5 or better to show improving strength in order to increase ability to perform functional mobility. STG Duration 6 Senior Care Goal (LTG) Pt's gross LE MMT scores to improve to 4+/5 or better to show improving strength in order to increase ability to perform functional mobility. LTG Duration 12 One Impairment HEP Short Term Goal (STG) Pt to show independence with HEP as demonstrated by being able to recall 50% of exercises with proper form in order to progress in therapy and improve outcomes. STG Duration 2 [employer] Goal (LTG) Pt to show independence with HEP as demonstrated by being able to recall 80% or more of exercises with proper form in order to progress in therapy and improve outcomes. LTG Duration 4 Assessment Summary Assessment The pt arrived 15 minutes late due to transportation issues. The focus of today's session was on improving UE and core strength with therex listed above. The pt requires cues to avoid compensations as she begins to fatigue, specifically she begins to compensate with trunk when performing UE exercises, and compensates with UEs when performing core exercises, even though she reports not feeling very fatigued from exercises. The pt would benefit from addition of UE therex to HEP, based on her form when performing these exercises next visit. Physical Therapy Plan Frequency and Duration Frequency of Treatment 2x/Week Duration of treatment (weeks) 12 Plan of Care Start Date 03/09/23 Plan of Care End Date 06/01/23 Therapeutic Interventions Therapeutic Interventions Balance Training,Gait Training ,Home Exercise Program,Manual Therapy,Neuromuscular Re- education,Patient/Caregiver Education,Self-Care/Home Management,Soft Tissue Mobilization,Taping, Therapeutic Activities, Therapeutic Exercises, Wheelchair Management Modalities Cold Pack/Ice Massage,Electric Stimulation,Hot Packs Next Visit Focus/Plan Next Note Type Treatment Note Next Visit Plan Add core and UE strengthening exercises as able.
--- NOTE | 2023-05-04 17:18 | PT.OTN ---
Current Diagnoses Multiple sclerosis (05/04/23) Physical Therapy Treatment Note PT-OP-A Visit Information Start: 03/09/23 16:06 Freq: Status: Active Protocol: Document 05/04/23 16: AB (Rec: 05/04/23 17:18 AB [id number]) Out-Patient Physical Therapy Visit Information Visit Information Visit Type Treatment Note Visit Start Time 14:17 Visit Stop Time 17:00 Total Visit Minutes 42 Visit Number 6 Evaluation Information Evaluation Date 03/09/23 PT-OP-B Current Condition Start: 03/09/23 16:06 Freq: Status: Active Protocol: Document 03/09/23 16:06 AB (Rec: 03/09/23 17:37 AB [id number]) Current Condition History of Current Condition Onset Date Chronic Current Complaints Denies pain currently History of Current Condition The pt and the pt's sister ( CLAUDIA) report over the last year she has become unmotivated to continue with her PT exercises or to move out of her chair in general. Because of her lack of activity, she has lost the ability to transfer out of her chair or perform any functional mobility. However, she is able to propel her wheelchair for short distances and at a slow speed. Currently she requires assistance for all of her ADLs due to her weakness. Prior Treatments and Tests PT 1 year ago Treatment Goals Patient/Caregiver Goals To be able to stand up, transfer from wheel chair and walk. Prior Functional Status Baseline Function- ADL's Needs Assist Baseline Function- Mobility Needs Assist Baseline Function- Gait Has used W/C for 3-4 years Current Functional Impairments (Reported) Functional Limitations- ADL's Requires assisstance for all ADLs Functional Limitations- Mobility/Gait Uses wheelchair for locomotion ; able to propel W/C for 200ft Functional Limitations- Recreation/ Does not participate in any Hobbies activities due to level of function PT-OP-C Subjective Start: 03/09/23 16:06 Freq: Status: Active Protocol: Document 05/04/23 16:23 AB (Rec: 05/04/23 17:18 AB [id number]) OP-PT Subjective Patient Comments Patient Comments The pt states she is doing well and denies any symptoms currently. PT-OP-G Mobility & Gait Start: 03/09/23 16:06 Freq: Status: Active Protocol: Document 03/09/23 16:06 AB (Rec: 08/28/23 17:37 AB [id number]) OP Mobility Evaluation Bed Mobility Rolling Unable to perform Supine to and from Sit Unable to perform Transfers Sit to Stand Dependent Bed to Chair Transfers Dependent Wheelchair Management Type of Wheelchair standard 22x18 PT-OP-M Strength Start: 03/09/23 16:06 Freq: Status: Active Protocol: Document 03/09/23 16:06 AB (Rec: 03/09/23 17:37 AB [id number]) Shoulder Strength Shoulder Manual Muscle Testing Right Flexion 4 Good Extension 4 Good Abduction (C5) 4- Good- Left Flexion 4 Good Extension 4 Good Abduction (C5) 4- Good- Elbow/Forearm Strength Elbow and Forearm Manual Muscle Testing Right Flexion (C6) 4 Good Extension (C7) 4 Good Left Flexion (C6) 4 Good Extension (C7) 4 Good Hip Strength Hip Manual Muscle Testing Right Flexion (L2) 4- Good- Extension (S1) 3 Fair Abduction 3 Fair Adduction 3+ Fair+ External Rotation 3+ Fair+ Internal Rotation 3+ Fair+ Left Flexion (L2) 4- Good- Extension (S1) 3 Fair Abduction 3 Fair Adduction 3+ Fair+ External Rotation 3+ Fair+ Internal Rotation 3+ Fair+ Knee Strength Knee Manual Muscle Testing Right Flexion (S2) 3+ Fair+ Extension (L3) 4- Good- Left Flexion (S2) 3+ Fair+ Extension (L3) 4- Good- Ankle/Foot Strength Ankle and Foot Manual Muscle Testing Right Dorsiflexion (L4) 3+ Fair+ Plantarflexion (S1) 3+ Fair+ Left Dorsiflexion (L4) 3+ Fair+ Plantarflexion (S1) 3+ Fair+ PT-OP-Q Treatments Start: 03/09/23 16:06 Freq: Status: Active Protocol: Document 05/04/23 16:23 AB (Rec: 05/04/23 17:18 AB [id number]) Therapeutic Exercises Sitting Exercises balloon toss Side bilateral Equipment Used balloon, dowel (2nd set) Reps/Minutes 3x1min Comments focus on coordination and control, reaching outside of KINZA Ball toss Sitting Exercise Name basketball chest pass Side bilateral Equipment Used basketball Reps/Minutes 2x15 throws Comments Focus on improving power through UEs and core OH press Side bilateral Resistance 1# DB Reps/Minutes 2x10 ea bicep curls Side bilateral Resistance 3# DB Reps/Minutes 2x10 Shoulder flexion Side bilateral Resistance 3# DB Reps/Minutes 2x10 TB ext Side bilateral Resistance org TB, blue TB Equipment Used 1x25, 1x15 TB rows Side bilateral Resistance ruby grn TB, blue TB Reps/Minutes 1x20, 1x20 PT-OP-T Assessment and Plan Start: 03/09/23 16:06 Freq: Status: Active Protocol: Document 05/04/23 16:23 AB (Rec: 05/04/23 17:18 AB [id number]) Physical Therapy Assessment Goals Four Impairment Functional mobility Short Term Goal (STG) Pt to be able to perform a stand pivot transfer with FWW and CGA in order to show improving level of function and to increase her independence. STG Duration 6 Timber Killer Goal (LTG) Pt to be able to perform a stand step transfer with FWW and CGA in order to show improving level of function and to increase her independence. LTG Duration 12 Three Impairment Functional mobility Short Term Goal (STG) Pt to be able to perform 1 STS with use of UEs in order to show improving strength and improving ability to perform functional mobility to increase her level of function . STG Duration 6 Timber Killer Goal (LTG) Pt to be able to perform 3 STS with use of UEs in order to show improving strength and improving ability to perform functional mobility to increase her level of function . LTG Duration 12 Two Impairment LE Strength Short Term Goal (STG) Pt's gross LE MMT scores to improve to 4/5 or better to show improving strength in order to increase ability to perform functional mobility. STG Duration 6 Timber Killer Goal (LTG) Pt's gross LE MMT scores to improve to 4+/5 or better to show improving strength in order to increase ability to perform functional mobility. LTG Duration 12 One Impairment HEP Short Term Goal (STG) Pt to show independence with HEP as demonstrated by being able to recall 50% of exercises with proper form in order to progress in therapy and improve outcomes. STG Duration 2 Custodial Goal (LTG) Pt to show independence with HEP as demonstrated by being able to recall 80% or more of exercises with proper form in order to progress in therapy and improve outcomes. LTG Duration 4 Assessment Summary Assessment The pt was progressed today by adding resistance to UE exercises. However, she requires verbal cues to avoid control eccentric portion of exercises both with theraband and with dumbbells. Significant difference is noted in her LUE compared to her RUE, as she her LUE quickly fatigues and she has trouble performing exercises through full ROM. Ball toss and balloon toss were added to improve power and control/ coordination respectively of UEs and core. The pt continues to benefit from skilled PT at this time to improve her deficits in order to improve to her highest level of function. Physical Therapy Plan Frequency and Duration Frequency of Treatment 2x/Week Duration of treatment (weeks) 12 Plan of Care Start Date 03/09/23 Plan of Care End Date 06/01/23 Therapeutic Interventions Therapeutic Interventions Balance Training,Gait Training ,Home Exercise Program,Manual Therapy,Neuromuscular Re- education,Patient/Caregiver Education,Self-Care/Home Management,Soft Tissue Mobilization,Taping, Therapeutic Activities, Therapeutic Exercises, Wheelchair Management Modalities Cold Pack/Ice Massage,Electric Stimulation,Hot Packs Next Visit Focus/Plan Next Note Type Treatment Note Next Visit Plan Add core and UE strengthening exercises as able.
--- NOTE | 2023-05-11 16:58 | PT-IP ANOTE ---
Pt is a no call/no show for today's appointment. PT called pt's contact number and left a voicemail regarding no show and that today was the pt's last scheduled visit. PT asked for a call back to schedule additional visits.
--- NOTE | 2023-05-27 15:24 | PT.OPDS ---
Current Diagnoses Multiple sclerosis (05/04/23) Visit Care Team Role Provider Type Vasiliy Rubio DO Attending Provider Physician Family Provider Primary Care Provider Referring Provider Specialty: [facility] Address: [address] [place] [address], [facility] [address], [place], [facility] Email: [email or web address] Visit Number Visit Number 6 Discharge Summary PT-OP-B Current Condition Start: 03/09/23 16:06 Freq: Status: Active Protocol: Document 03/09/23 16:06 AB (Rec: 03/09/23 17:37 AB [id number]) Current Condition History of Current Condition Onset Date Chronic Current Complaints Denies pain currently History of Current Condition The pt and the pt's sister ( CLAUDIA) report over the last year she has become unmotivated to continue with her PT exercises or to move out of her chair in general. Because of her lack of activity, she has lost the ability to transfer out of her chair or perform any functional mobility. However, she is able to propel her wheelchair for short distances and at a slow speed. Currently she requires assistance for all of her ADLs due to her weakness. Prior Treatments and Tests PT 1 year ago Treatment Goals Patient/Caregiver Goals To be able to stand up, transfer from wheel chair and walk. Prior Functional Status Baseline Function- ADL's Needs Assist Baseline Function- Mobility Needs Assist Baseline Function- Gait Has used W/C for 3-4 years Current Functional Impairments (Reported) Functional Limitations- ADL's Requires assisstance for all ADLs Functional Limitations- Mobility/Gait Uses wheelchair for locomotion ; able to propel W/C for 200ft Functional Limitations- Recreation/ Does not participate in any Hobbies activities due to level of function PT-OP-C Subjective Start: 03/09/23 16:06 Freq: Status: Active Protocol: Document 05/04/23 16:23 AB (Rec: 05/04/23 17:18 AB [id number]) OP-PT Subjective Patient Comments Patient Comments The pt states she is doing well and denies any symptoms currently. PT-OP-G Mobility & Gait Start: 03/09/23 16:06 Freq: Status: Active Protocol: Document 03/09/23 16:06 AB (Rec: 03/09/23 17:37 AB [id number]) OP Mobility Evaluation Bed Mobility Rolling Unable to perform Supine to and from Sit Unable to perform Transfers Sit to Stand Dependent Bed to Chair Transfers Dependent Wheelchair Management Type of Wheelchair standard 22x18 PT-OP-M Strength Start: 03/09/23 16:06 Freq: Status: Active Protocol: Document 03/09/23 16:06 AB (Rec: 03/09/23 17:37 AB [id number]) Shoulder Strength Shoulder Manual Muscle Testing Right Flexion 4 Good Extension 4 Good Abduction (C5) 4- Good- Left Flexion 4 Good Extension 4 Good Abduction (C5) 4- Good- Elbow/Forearm Strength Elbow and Forearm Manual Muscle Testing Right Flexion (C6) 4 Good Extension (C7) 4 Good Left Flexion (C6) 4 Good Extension (C7) 4 Good Hip Strength Hip Manual Muscle Testing Right Flexion (L2) 4- Good- Extension (S1) 3 Fair Abduction 3 Fair Adduction 3+ Fair+ External Rotation 3+ Fair+ Internal Rotation 3+ Fair+ Left Flexion (L2) 4- Good- Extension (S1) 3 Fair Abduction 3 Fair Adduction 3+ Fair+ External Rotation 3+ Fair+ Internal Rotation 3+ Fair+ Knee Strength Knee Manual Muscle Testing Right Flexion (S2) 3+ Fair+ Extension (L3) 4- Good- Left Flexion (S2) 3+ Fair+ Extension (L3) 4- Good- Ankle/Foot Strength Ankle and Foot Manual Muscle Testing Right Dorsiflexion (L4) 3+ Fair+ Plantarflexion (S1) 3+ Fair+ Left Dorsiflexion (L4) 3+ Fair+ Plantarflexion (S1) 3+ Fair+ PT-OP-T Assessment and Plan Start: 03/09/23 16:06 Freq: Status: Active Protocol: Document 05/27/23 15:23 AB (Rec: 05/27/23 15:24 [id number]) Physical Therapy Plan Discharge Physical Therapy Discharge Reasons No Longer Attending PT Discharge Comments Pt was a no call/no show for her last scheduled PT visit. PT called pt and left VM, but did not receive a call back. Therefore PT is discharging the pt at this time.
== END 2023-05-28 13:03 | disposition home or self-care (01) ==
LOC: PHYS 16:15
PROVIDERS: Family Provider Family Medicine; PCP Family Medicine; Referring Provider Family Medicine; Visit Provider Family Medicine
DX: G35 Multiple sclerosis (principal)
CPT/HCPCS: 97110; 97162; 97530; 97542

== ENCOUNTER → 2023-06-01 18:37 | Outpatient (ROUT) | payer OTHER, SELFPAY ==
[2022-08-04 17:23] VITALS: BMI 36.8
[2023-06-01 18:48] LABS: Appearance Urine UA SL CLOUDY; Bilirubin Urine UA NEGATIVE (NEGATIVE); Color Urine UA YELLOW; Glucose Urine UA NEGATIVE (Negative); Ketones Urine UA NEGATIVE (NEGATIVE); Leukocyte Esterase Urine UA 2+ (NEGATIVE); Nitrite Urine UA POSITIVE (Negative); Occult Blood Urine UA NEGATIVE (Negative); Protein Urine UA NEGATIVE (Negative); Urobilinogen Urine UA 0.2 E.U./dL (0.2)
[2023-06-01 18:50] LABS: pH Urine UA 8.5 (4.5-8.0)
[2023-06-01 19:05] LABS: RBC Urine 0-1/HPF (0-5/HPF); WBC Urine 5-10/HPF (0-5/HPF)
[2023-06-01 19:06] LABS: Bacteria Urine Many (>30); Squamous Epithelial Cell Urine 1-5 /HPF (0-5/HPF); Urine Comments WBC CLUMPS PRESENT
[2023-06-01 19:28] LABS: Culture Indicated Urine Specimen Cultured
== END ==
PROVIDERS: Family Provider Family Medicine; PCP Family Medicine; Visit Provider Family Medicine
DX: Z13.89 Encounter for screening for other disorder (principal)
CPT/HCPCS: 81001; 87077; 87086; 87186

== ENCOUNTER → 2023-08-26 13:28 | Outpatient (ROUT) | payer OTHER, SELFPAY ==
[2022-08-04 17:23] VITALS: BMI 36.8
== END ==
PROVIDERS: Family Provider Family Medicine; PCP Family Medicine; Visit Provider Family Medicine
DX: N39.0 Urinary tract infection, site not specified (principal)
CPT/HCPCS: 87077; 87086; 87186

== ENCOUNTER 2023-10-11 12:46 | Emergency (ER) | payer OTHER, SELFPAY ==
[2022-08-04 17:23] VITALS: BMI 36.8
[2023-10-11] VITALS (13 sets, daily range): BP systolic 120–154; BP diastolic 56–63; PULSE 94–109; RESP 16–43; TEMP 35.9; O2SAT 87–99
--- NOTE | 2023-10-11 13:18 | PC.NURSE ---
patient was straight cathed and she produced scant amount of cloudy pink tinged urine. Advancing the cath was slightly painful for the patient but she tolerated the procedure well. The patient denies pain during urination, frequency, odor or any other s/sx of UTI. The family states that much of her UTI symptoms present as cognitive changes. The patient's family reports that he patient is now needing full transfer assistance after the pandemic started.
--- NOTE | 2023-10-11 13:25 | DI.RAD.S_ITS ---
PROCEDURE: XR CHEST 1V INDICATIONS: suspected sepsis TECHNIQUE: One view of the chest was acquired. COMPARISON: [facility], CR, XR CHEST FOR PICC 1V, 08/07/2022, 10:06. [facility], CR, XR CHEST 1V, 08/05/2022, 9:31. FINDINGS: Surgical changes and devices: None. Lungs and pleura: Low lung volumes. Left midlung opacity and possible left basilar opacity.. No pleural effusions or pneumothorax. Mediastinum: Mediastinal contours appear normal. Heart size is mildly enlarged, stable. Bones and chest wall: No suspicious bony lesions. Overlying soft tissues appear unremarkable. IMPRESSION: Low lung volumes. Left midlung opacity and possible left basilar opacity. Dictated by: Denton Jaramillo M.D. on 10/11/2023 at 14:03 Approved by: Denton Jaramillo M.D. on 10/11/2023 at 14:05
[2023-10-11 13:27] LABS: Bacteria Urine Many (>30); RBC Urine 5-10/HPF (0-5/HPF); Squamous Epithelial Cell Urine 10-30 /HPF (0-5/HPF); Transitional Epi Cells Urine 0-1/HPF (0-5/HPF); Urine Volume Low Vol <1mL unspun; WBC Urine 30-100/HPF (0-5/HPF)
[2023-10-11 13:28] LABS: Culture Indicated Urine Specimen Cultured
[2023-10-11 13:51] LABS: Add Manual Diff / Slide Review NO; Basophils Absolute Auto 100 /uL (0-100); Basophils Percent Auto 0.3 % (0-2); Eosinophils Absolute Auto 0 /uL (0-450); Eosinophils Percent Auto 0.2 % (2-4); Hematocrit 46.7 % (36-46); Hemoglobin 15.3 g/dL (12.0-16.0); Lymphocytes Absolute Auto 800 /uL (1100-4500); Lymphocytes Percent Auto 4.8 % (25-40); Mean Corpuscular HGB Conc 32.8 % (30-36); Mean Corpuscular Hemoglobin 30.3 PG (26-34); Mean Corpuscular Volume 92.6 fL (80-100); Monocytes Absolute Auto 1200 /uL (0-900); Monocytes Percent Auto 7.2 % (3-14); Neutrophils Absolute Auto 14700 /uL (1500-7000); Neutrophils Percent Auto 87.5 % (50-75); Platelet Count 241 X10^3/uL (150-400); Red Blood Cell Count 5.04 X10^6/uL (4.0-5.2); White Blood Cell Count 16.8 X10^3/uL (4.5-11.0)
[2023-10-11] MEDS: SODIUM CHLORIDE 0.9% 1,000 ML 1000 ML IV (13:52)
--- NOTE | 2023-10-11 13:52 | ED_ITS ---
HPI - Female Genitourinary General Chief complaint: Urogenital-Female Stated complaint: states uti Time Seen by Provider: 10/11/23 13:26 Source: patient and family Mode of arrival: Wheelchair History of Present Illness HPI Narrative: Patient is a 68-year-old female history of multiple sclerosis, depression, frequent UTIs dementia presents today with increased confusion. She is here with her sister who states that she regularly gets UTI she in fact was admitted here in July 2022 with a UTI and a left sided kidney stone. Family denies that she self catheterize although there are reports that she use to it does not seem like she does anymore. There were thoughts that she was confused last week sister thought she was probably having UTI last week but never put on antibiotics for her evaluated. She did not eat very much yesterday in his more confused today. Patient actually has no complaints accepts some minimal abdominal pain. She is known to be mildly hypoxic 89 90% on room air. However she denies any chest pain or shortness of breath. No fever cough. Sister states that she never gets a fever and frequently has UTIs. Related Data Home Medications Medication Instructions Recorded Confirmed VITAMIN D (Vitamin D3) 2,000 unit PO QDAY ##0 02/21/16 09/18/23 ibuprofen 200 mg tablet 400 mg PO Q4HP PRN Pain (Scale 02/21/16 09/18/23 Score 4-6) ##0 docusate calcium 240 mg capsule 240 mg PO DAILY 12/01/22 09/18/23 Previous Rx's Medication Instructions Recorded cyanocobalamin (vitamin B-12) 1,000 mcg PO QDAY #30 tabs 02/02/18 1,000 mcg tablet,extended release fluoxetine 40 mg capsule 40 mg PO DAILY #90 caps 12/01/22 nystatin 100,000 unit/gram topical 1 applic topical BID PRN rash #30 12/16/22 powder grams calcium carbonate 600 mg-vitamin See Rx Instructions .Route 01/02/23 D3 10 mcg (400 unit) tablet .COMPLEX #90 tabs CRANBERRY 450MG W/VITC See Rx Instructions .Route 01/07/23 .COMPLEX #180 caps bupropion HCl 150 mg 24 hr tablet, 150 mg PO QAM #30 tabs 03/25/23 extended release (Wellbutrin XL) quetiapine 25 mg tablet (Seroquel) 25 mg PO DAILY #30 tabs 07/29/23 cefpodoxime 100 mg tablet 100 mg PO BID #14 tabs 08/31/23 d-mannose 500 mg capsule 1,000 mg (2 x 500 mg) PO DAILY 09/18/23 #180 caps trazodone 50 mg tablet 25 mg (1/2 x 50 mg) PO ONCE PM #45 09/18/23 tabs Allergies Allergy/AdvReac Type Severity Reaction Status Date / Time Sulfa (Sulfonamide Allergy Severe Rash, Verified 09/18/23 13:55 Antibiotics) itching sulfadiazine Allergy Mild RASH Verified 09/18/23 13:55 Patient History Medical History (Updated 10/11/23 @ 15:42 by Astrid Veliz DO) Muscular deconditioning Vitamin B deficiency Hyperlipidemia (Unknown) 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) Frequent UTI (Unknown) Depression (Unknown) Multiple sclerosis (1972) Family History Sister Age: 62 Fibromyalgia alcohol intake frequency: holidays/special occasions only Substance Use Type: does not use Exam Initial Vital Signs Initial Vital Signs: Vital Signs Temperature 96.7 F L 10/11/23 12:49 Pulse Rate 107 H 10/11/23 12:49 Respiratory Rate 16 10/11/23 12:49 Blood Pressure 127/58 L 10/11/23 12:49 Pulse Oximetry 96 10/11/23 12:49 Oxygen Delivery Method Room Air 10/11/23 12:49 GENERAL: Alert 68-year-old female HEENT: Head atraumatic,EOMI, pupils reactive, face symmetric, moist mucous membranes CARDIOVASCULAR: Regular rate and rhythm without murmurs, rubs or gallops. RESPIRATORY: Breath sounds equal bilaterally, no wheezes rales or rhonchi. ABDOMEN: Soft, minimal suprapubic pain no guarding no rebound : No CVA tenderness EXTREMITIES: Normal range of motion, no clubbing or edema. Neurovascularly intact NEUROLOGICAL: Alert and oriented x3 at baseline SKIN: Warm, dry, no laceration, no petechiae, no rashes or lesions. Course Orders Ordered: ED Orders 10/11/23 13:15 Urine Culture Stat Urine Microscopic Stat 10/11/23 13:25 XR chest 1V Stat RT Consult Eval and Treat NOW 10/11/23 13:38 Complete Blood Count AUTO DIFF Stat Comprehensive Metabolic Panel Stat Lactate (Lactic Acid) Stat Lipase Stat PTT Partial Thromboplastin Ricki Stat Procalcitonin Stat Prothrombin Time INR Stat 10/11/23 13:40 EKG-12 Lead Stat 10/11/23 14:03 CT abdomen pelvis w con Stat 10/11/23 14:05 Blood Culture Stat 10/11/23 15:23 UA Complete [Urinalysis and Microscopic] Stat Discontinued Medications Sodium Chloride (Normal Saline 0.9%) 1,000 mls @ 1,000 mls/hr IV BOLUS ONE Stop: 10/11/23 14:24 Last Infusion: 10/11/23 14:51 Dose: Infused Documented By: Admin: 10/11/23 13:52 Dose: 1,000 mls/hr Documented By: EMA Ceftriaxone Sodium 1,000 mg/ (Sodium Chloride) 100 mls @ 200 mls/hr IV NOW ONE Stop: 10/11/23 14:04 Last Infusion: 10/11/23 15:10 Dose: Infused Documented By: Admin: 10/11/23 14:12 Dose: 200 mls/hr Documented By: EMA Sodium Chloride (Normal Saline 0.9%) 2,381.37 mls @ 793.79 mls/hr 30 ml/kg infuse over 3 hr (2381.37 ml) IV NOW ONE Stop: 10/11/23 17:03 Last Infusion: 10/11/23 16:46 Dose: 793.79 mls/hr Documented By: Admin: 10/11/23 14:50 Dose: 793.79 mls/hr Documented By: EMA Ondansetron HCl (Ondansetron 4 Mg/2 Ml Inj) 4 mg IV NOW PRN PRN Reason: Nausea And Vomiting Ondansetron HCl (Ondansetron 4 Mg Odt) 4 mg SL NOW PRN PRN Reason: Nausea And Vomiting Vital Signs Vital signs: Vital Signs - 8 hr 10/11/23 12:49 10/11/23 13:18 10/11/23 13:19 Temperature 96.7 F L Pulse Rate 107 H 107 H Respiratory Rate 16 Blood Pressure 127/58 L 124/56 L Pulse Oximetry 96 93 Oxygen Delivery Method Room Air Oxygen Flow Rate 10/11/23 13:19 10/11/23 13:30 10/11/23 13:51 Temperature Pulse Rate 104 H 103 H 99 H Respiratory Rate 21 22 Blood Pressure Pulse Oximetry 92 92 90 L Oxygen Delivery Method Oxygen Flow Rate 10/11/23 13:51 10/11/23 14:00 10/11/23 14:29 Temperature Pulse Rate 104 H 94 H Respiratory Rate 22 Blood Pressure 136/62 Pulse Oximetry 98 99 Oxygen Delivery Method Nasal Cannula Oxygen Flow Rate 1 10/11/23 14:29 10/11/23 14:30 10/11/23 14:30 Temperature Pulse Rate 95 H Respiratory Rate 24 Blood Pressure 123/62 122/61 Pulse Oximetry 99 Oxygen Delivery Method Oxygen Flow Rate 10/11/23 15:00 10/11/23 15:00 10/11/23 15:30 Temperature Pulse Rate 97 H 96 H Respiratory Rate 24 22 Blood Pressure 124/58 L Pulse Oximetry 96 96 Oxygen Delivery Method Nasal Cannula Oxygen Flow Rate 2 10/11/23 15:30 10/11/23 16:00 10/11/23 16:00 Temperature Pulse Rate 100 H Respiratory Rate 30 H Blood Pressure 120/62 124/58 L Pulse Oximetry 90 L Oxygen Delivery Method Oxygen Flow Rate 10/11/23 16:30 10/11/23 16:31 10/11/23 16:31 Temperature Pulse Rate 104 H 109 H Respiratory Rate 34 H 43 H Blood Pressure 154/63 H Pulse Oximetry 90 L 87 L Oxygen Delivery Method Room Air Oxygen Flow Rate MDM - Female Genitourinary Lab Data 10/11/23 13:38 10/11/23 13:38 Labs: Lab Results 10/11/23 10/11/23 10/11/23 Range/Units 13:15 13:38 15:23 WBC 16.8 H (4.5-11.0) X10^3/uL RBC 5.04 (4.0-5.2) X10^6/uL Hgb 15.3 (12.0-16.0) g/dL Hct 46.7 H (36-46) % MCV 92.6 (80-100) fL MCH 30.3 (26-34) PG MCHC 32.8 (30-36) % RDW 15.0 H (11.6-14.8) % Plt Count 241 (150-400) X10^3/uL Neut % (Auto) 87.5 H (50-75) % Lymph % (Auto) 4.8 L (25-40) % [place] % (Auto) 7.2 (3-14) % Eos % (Auto) 0.2 L (2-4) % Baso % (Auto) 0.3 (0-2) % Neut # (Auto) 47718 H (5591-2194) /uL Lymph # (Auto) 800 L (2750-6794) /uL [place] # (Auto) 1200 H (0-900) /uL Eos # (Auto) 0 (0-450) /uL Baso # (Auto) 100 (0-100) /uL PT 11.1 (9.4-12.5) SECONDS INR 1.0 (0.9-1.3) APTT 35 (25.1-36.5) SECONDS Sodium 140 (137-145) mmol/L Potassium 4.1 (3.4-5.1) mmol/L Chloride 105 (98-107) mmol/L Carbon Dioxide 26 (22-32) mmol/L BUN 20 H (7-17) mg/dL Creatinine 0.97 (0.52-1.04) mg/dL Estimated GFR > 60 (>60) mL/min BUN/Creatinine Ratio 20.6 (6-22) Glucose 138 H (80-110) mg/dL Lactate 3.7 H (0.7-2.1) mmol/L Calcium 9.2 (8.4-10.2) mg/dL Total Bilirubin 0.5 (0.2-1.3) mg/dL AST 23 (14-36) IU/L ALT 20 (<35) IU/L Alkaline Phosphatase 73 (38-126) U/L Total Protein 7.6 (6.3-8.2) g/dL Albumin 4.1 (3.5-5.0) g/dL Globulin 3.5 (1.7-4.1) g/dL Albumin/Globulin Ratio 1.2 (1.0-2.8) Lipase 51 (23-300) U/L Procalcitonin 0.06 (<0.5) ng/mL Urine Color Yellow Urine Appearance Clear Urine pH 6.5 (4.5-8.0) Ur Specific [place] <=1.005 (1.000-1.035) Urine Protein Negative (Negative) Urine Glucose (UA) Negative (Negative) g/dL Urine Ketones Negative (NEGATIVE) Urine Occult Blood Trace-intact (Negative) Urine Nitrate Negative (Negative) Urine Bilirubin Negative (NEGATIVE) Urine Urobilinogen 0.2 (0.2) E.U./dL Ur Leukocyte Esterase Trace H (NEGATIVE) Urine RBC 5-10/hpf H None seen D (0-5/HPF) Urine WBC 30-100/hpf H 0-1/hpf D (0-5/HPF) Ur Squamous Epith Cells 10-30 /hpf H D 0-1 /hpf D (0-5/HPF) Ur Transition Epith Cell 0-1/hpf None seen (0-5/HPF) Urine Bacteria Many (>30) H Few (2-10) H D (None) Ur Culture Indicated? Specimen cultured Specimen cultured Vol Urine Centrifuged Low vol <1ml unspun A 10ml (spun) Imaging Data CT scan - abdomen/pelvis: Radiologist's Impression: PROCEDURE: CT ABDOMEN PELVIS W CON INDICATIONS: ab pain hx kidney stone TECHNIQUE: After the administration of intravenous contrast, axial sections acquired from the lung bases to the pubic symphysis. Coronal and sagittal reformats were performed. For radiation dose reduction, the following was used: automated exposure control, adjustment of mA and/or kV according to patient size. COMPARISON: [facility], CT, CT ABDOMEN PELVIS W CON, 08/04/2022, 15:20. FINDINGS: Image quality: Mild motion degradation. Lower Chest: Stable right middle lobe subpleural nodule measuring 4 millimeters mild dependent atelectasis. Normal heart size. ABDOMEN: Liver: No solid mass. Gallbladder: No radiopaque gallstones or wall thickening. Biliary ducts: No biliary dilation. Pancreas: No ductal dilation. Spleen: Size is within normal limits. Adrenal Glands: Stable right adrenal nodule measuring 1.2 centimeters. Kidneys and Ureters: Obstructing stone within the left distal ureter measuring 5 x 3 millimeters. There is mild upstream hydroureteronephrosis Stomach and Bowel: Normal colonic caliber, without significant wall thickening. Stool ball within the rectum measuring approximately 6 centimeters. Peritoneum: No abnormal intraperitoneal fluid. No free air. Stable mesenteric stranding Ventral Wall: No significant ventral hernia. Abdominal Nodes: No retroperitoneal or mesenteric adenopathy by size criteria. Vessels: Aorta and inferior vena cava are normal in size. Atherosclerotic vascular calcifications. PELVIS: Pelvic Organs: Similar right adnexal cyst measuring approximately 6 centimeters.. Bladder: No bladder wall thickening, accounting for underdistention. Pelvic Nodes: No enlarged lymph nodes. Miscellaneous: No inguinal hernias are seen. Bones: No aggressive osseous abnormality. Decreased osseous mineralization. Degenerative changes of the spine. IMPRESSION: 1. Obstructing 5 millimeter stone within the left distal ureter resulting in mild upstream hydroureteronephrosis. 2. Stool ball within the rectum measuring up to 6 centimeters, correlate with impaction. 3. Stable mesenteric stranding compared to prior, may represent mesenteritis. 4. Right adnexal cyst measuring approximately 6 centimeters is stable compared to prior, recommend gynecologic consultation if not previously obtained. 5. Stable right adrenal nodule measuring 1.2 centimeters. Dictated by: Denton Jaramillo M.D. on 10/11/2023 at 14:33 Chest x-ray: Radiologist's Impression: PROCEDURE: XR CHEST 1V INDICATIONS: suspected sepsis TECHNIQUE: One view of the chest was acquired. COMPARISON: [facility], CR, XR CHEST FOR PICC 1V, 08/07/2022, 10:06. [facility], CR, XR CHEST 1V, 08/05/2022, 9:31. FINDINGS: Surgical changes and devices: None. Lungs and pleura: Low lung volumes. Left midlung opacity and possible left basilar opacity.. No pleural effusions or pneumothorax. Mediastinum: Mediastinal contours appear normal. Heart size is mildly enlarged, stable. Bones and chest wall: No suspicious bony lesions. Overlying soft tissues appear unremarkable. IMPRESSION: Low lung volumes. Left midlung opacity and possible left basilar opacity. Dictated by: Denton Jaramillo M.D. on 10/11/2023 at 14:03 Approved by: Denton Jaramillo M.D. on 10/11/2023 at 14:05 ECG Data Interpretation: Sinus rhythm rate 101 FL interval 160 QRS 92 QTC 503 MDM Narrative Medical decision making narrative: MDM CC: Weakness confusion Complicating co-morbidities: Multiple sclerosis, frequent UTI Corroborating data: [ ] Data collected from: Family Medical records reviewed: Previously admitted July 2022 with left-sided kidney stone. At that time she had Gram-negative bacteremia with elevated white count lactate and mildly hypoxic. To positive blood cultures for Proteus sensitive to carbapenems. She was changed ultimately to ertapenem and discharge to [facility] for 2 weeks. No urology intervention at that time. Differential considered: Sepsis Exam documented above, pertinent findings include: Appears mildly weak no obvious sign of shortness of breath mild tenderness suprapubic area no significant back pain Lab Test results independently reviewed as above. Pertinent findings: WBC 16.8, hemoglobin 15.3, hematocrit 46.7, platelets 241, sodium 140, potassium 4.1, chloride 105, carbon dioxide 26, BUN 20, creatinine 0.97, glucose 138, lactate 3.7, procalcitonin 0.06 Independently reviewed EKG as above Imaging studies independently reviewed: Consultations: 1500 Dr. Lau urology, at [facility] recommends urgent transfer for stent. Dr. Wolf Hospitalist accepts patient, ok to arrange transport Treatments: Sepsis fluids, Rocephin based on cultures from 08/26/2023 1. Proteus mirabilis M.I.C. RX --------- --- * Ampicillin >=32 R * Ampicillin/Sulbactam 16 I * Cefazolin 8 R * Cefepime <=1 S * Ceftazidime <=1 S * Ceftriaxone <=1 S * Ciprofloxacin >=4 R * Ertapenem <=0.5 S * Gentamicin <=1 S * Imipenem 4 R * Levofloxacin 2 R * Nitrofurantoin R * Tobramycin <=1 S * Trimethoprim/Sulfamethoxazole >=320 R * Piperacillin/Tazobactam <=4 S Re-evaluations: [ ] Discussion: Patient 68-year-old female history of MS frequent UTIs presents today with confusion. Sisters concerning for UTI. Initial urine had very small amount, repeat urinalysis from a Gerber catheter does show few bacteria trace leukocytes no nitrates. However blood work is obviously concerning for infection with elevated leukocytosis and lactate. She has a 5 mm kidney stone. Unclear if this is a new kidney stone or stone that is not passed from over a year ago. Discussion with Urology recommends that she be transferred for urgent stent placement. Patient is mildly hypoxic 89-90% on room air. This happened last time when she had UTI as well. No obvious cause x-ray is clear she has in no sort of respiratory distress. Pulmonary embolism considered however think unlikely [facility] has a accepted patient Sister updated recommendation she is her DPOA Critical Care Time Critical Care Time Critical Care Time: Yes Total Critical Care Time: 45 Attestation: The high probability of a clinically significant, sudden or life threatening deterioration of the [cardiovascular] system(s) required my full and direct attention, intervention and personal management. The aggregate critical care time was [45] minutes. This time is in addition to time spent performing reported procedures but includes the following: [x] Data Review and interpretation [x] Patient assessment and monitoring of vital signs [x] Documentation [x] Medication orders and management Discharge Plan Departure Patient Disposition: [facility] Clinical Impression: Sepsis, Kidney stone on left side, Acute UTI Prescriptions: No Action VITAMIN D (Vitamin D3) 2,000 unit PO QDAY Qty: 0 ibuprofen 200 MG tablet 400 mg PO Q4HP PRN (Reason: Pain (Scale Score 4-6)) Qty: 0 cyanocobalamin (vitamin B-12) 1,000 mcg tablet extended release 1,000 mcg PO QDAY Qty: 30 6RF nystatin 100,000 unit/gram powder 1 applic topical BID PRN (Reason: rash) Qty: 30 11RF calcium carbonate-vitamin D3 600 mg-10 mcg (400 unit) tablet See Rx Instructions .ROUTE .COMPLEX Qty: 90 3RF Dose Instruction: TAKE 1 TABLET BY MOUTH EVERY DAY Rx Instructions: TAKE 1 TABLET BY MOUTH EVERY DAY CRANBERRY 450MG W/VITC See Rx Instructions .ROUTE .COMPLEX Qty: 180 3RF Dose Instruction: TAKE 2 CAPSULES BY MOUTH DAILY Rx Instructions: TAKE 2 CAPSULES BY MOUTH DAILY quetiapine [Seroquel] 25 mg tablet 25 mg PO DAILY Qty: 30 5RF cefpodoxime 100 mg tablet 100 mg PO BID Qty: 14 0RF Rx Instructions: must administer with a meal/food docusate calcium 240 mg capsule 240 mg PO DAILY fluoxetine 40 mg capsule 40 mg PO DAILY Qty: 90 3RF bupropion HCl [Wellbutrin XL] 150 mg tablet extended release 24 hr 150 mg PO QAM Qty: 30 11RF trazodone 50 mg tablet 25 mg PO ONCE PM Qty: 45 3RF d-mannose 500 mg capsule 1,000 mg PO DAILY Qty: 180 3RF Referrals: Vasiliy Rubio DO [Primary Care Provider] -
[2023-10-11 13:57] LABS: Prothrombin Time 11.1 SECONDS (9.4-12.5)
[2023-10-11 13:59] LABS: PTT Partial Thromboplastin Tim 35 SECONDS (25.1-36.5)
[2023-10-11 14:01] LABS: Alanine Aminotransferase 20 IU/L (<35); Albumin 4.1 g/dL (3.5-5.0); Albumin Globulin Ratio 1.2 (1.0-2.8); Alkaline Phosphatase 73 U/L (38-126); Aspartate Aminotransferase 23 IU/L (14-36); BUN Creatinine Ratio 20.6 (6-22); Bilirubin Total 0.5 mg/dL (0.2-1.3); Blood Urea Nitrogen 20 mg/dL (7-17); Calcium 9.2 mg/dL (8.4-10.2); Carbon Dioxide 26 mmol/L (22-32); Chloride 105 mmol/L (98-107); Estimated Glomerular Filt Rate > 60 mL/min (>60); Globulin 3.5 g/dL (1.7-4.1); Glucose 138 mg/dL (80-110); HEMOLYSIS < 15 (0-50); Lactate (Lactic Acid) 3.7 mmol/L (0.7-2.1); Lipase 51 U/L (23-300); Potassium 4.1 mmol/L (3.4-5.1); Sodium 140 mmol/L (137-145); Total Protein 7.6 g/dL (6.3-8.2)
--- NOTE | 2023-10-11 14:03 | DI.CT.S_ITS ---
PROCEDURE: CT ABDOMEN PELVIS W CON INDICATIONS: ab pain hx kidney stone TECHNIQUE: After the administration of intravenous contrast, axial sections acquired from the lung bases to the pubic symphysis. Coronal and sagittal reformats were performed. For radiation dose reduction, the following was used: automated exposure control, adjustment of mA and/or kV according to patient size. COMPARISON: [facility], CT, CT ABDOMEN PELVIS W CON, 08/04/2022, 15:20. FINDINGS: Image quality: Mild motion degradation. Lower Chest: Stable right middle lobe subpleural nodule measuring 4 millimeters mild dependent atelectasis. Normal heart size. ABDOMEN: Liver: No solid mass. Gallbladder: No radiopaque gallstones or wall thickening. Biliary ducts: No biliary dilation. Pancreas: No ductal dilation. Spleen: Size is within normal limits. Adrenal Glands: Stable right adrenal nodule measuring 1.2 centimeters. Kidneys and Ureters: Obstructing stone within the left distal ureter measuring 5 x 3 millimeters. There is mild upstream hydroureteronephrosis Stomach and Bowel: Normal colonic caliber, without significant wall thickening. Stool ball within the rectum measuring approximately 6 centimeters. Peritoneum: No abnormal intraperitoneal fluid. No free air. Stable mesenteric stranding Ventral Wall: No significant ventral hernia. Abdominal Nodes: No retroperitoneal or mesenteric adenopathy by size criteria. Vessels: Aorta and inferior vena cava are normal in size. Atherosclerotic vascular calcifications. PELVIS: Pelvic Organs: Similar right adnexal cyst measuring approximately 6 centimeters.. Bladder: No bladder wall thickening, accounting for underdistention. Pelvic Nodes: No enlarged lymph nodes. Miscellaneous: No inguinal hernias are seen. Bones: No aggressive osseous abnormality. Decreased osseous mineralization. Degenerative changes of the spine. IMPRESSION: 1. Obstructing 5 millimeter stone within the left distal ureter resulting in mild upstream hydroureteronephrosis. 2. Stool ball within the rectum measuring up to 6 centimeters, correlate with impaction. 3. Stable mesenteric stranding compared to prior, may represent mesenteritis. 4. Right adnexal cyst measuring approximately 6 centimeters is stable compared to prior, recommend gynecologic consultation if not previously obtained. 5. Stable right adrenal nodule measuring 1.2 centimeters. Dictated by: Denton Jaramillo M.D. on 10/11/2023 at 14:33 Approved by: Denton Jaramillo M.D. on 10/11/2023 at 14:40
[2023-10-11] MEDS: cefTRIAXone 1,000 MG in SODIUM CHLORIDE 0.9% 100 ML 200 MG IV (14:12)
[2023-10-11 14:18] LABS: Procalcitonin 0.06 ng/mL (<0.5)
--- NOTE | 2023-10-11 14:25 | PC.NURSE ---
patient's family expressed concern for the patient's healthcare at [facility]. They stated that they have frequent turnover and the patient does not always get the best [place] care since the patient has had this UTi issue in the past. An HEAD BANDER AND LINER OPERATOR consult was offered and they stated that they would consult the veneer gluer at [facility].
[2023-10-11] MEDS: SODIUM CHLORIDE 0.9% 2,381.37 ML 793.79 ML IV (14:50)
[2023-10-11 15:20] LABS: Reflexed Lactate in 2 Hours Y
[2023-10-11 15:29] LABS: Appearance Urine UA CLEAR; Bilirubin Urine UA NEGATIVE (NEGATIVE); Color Urine UA YELLOW; Glucose Urine UA NEGATIVE (Negative); Ketones Urine UA NEGATIVE (NEGATIVE); Leukocyte Esterase Urine UA TRACE (NEGATIVE); Nitrite Urine UA NEGATIVE (Negative); Occult Blood Urine UA TRACE-INTACT (Negative); Protein Urine UA NEGATIVE (Negative); Specific Gravity Urine UA <=1.005 (1.000-1.035); Urobilinogen Urine UA 0.2 E.U./dL (0.2); pH Urine UA 6.5 (4.5-8.0)
[2023-10-11 15:36] LABS: Urine Volume 10mL (spun)
[2023-10-11 15:37] LABS: Bacteria Urine Few (2-10); Culture Indicated Urine Specimen Cultured; RBC Urine None Seen (0-5/HPF); Squamous Epithelial Cell Urine 0-1 /HPF (0-5/HPF); Transitional Epi Cells Urine None Seen (0-5/HPF); WBC Urine 0-1/HPF (0-5/HPF)
--- NOTE | 2023-10-11 15:49 | PC.NURSE ---
Accepted, [place]uit[place] Accepting, Room OSC 1028 Report to Cyn Irizarry @ [phone] [place] ETA 1612
== END 2023-10-11 16:49 | disposition short-term general hospital (02) ==
PROVIDERS: Emergency Provider Emergency Medicine; Family Provider Family Medicine; PCP Family Medicine
DX: N20.0 Calculus of kidney (principal); N39.0 Urinary tract infection, site not specified; A41.9 Sepsis, unspecified organism
CPT/HCPCS: 36415; 51701; 51798; 71045; 74177; 80053; 81001; 81015; 83605; 83690; 84145; 85025; 85610; 85730; 87040; 87077; 87086; 87186; 93005; 93010; 96365; 99285; 99291; J0696; Q9967

== ENCOUNTER 2023-11-10 11:23 | Emergency (ER) | payer OTHER, SELFPAY ==
[2022-08-04 17:23] VITALS: BMI 36.8
[2023-11-10] VITALS (20 sets, daily range): BP systolic 92–143; BP diastolic 55–74; PULSE 75–123; RESP 15–29; TEMP 36.9; O2SAT 91–97
--- NOTE | 2023-11-10 11:43 | DI.RAD.S_ITS ---
PROCEDURE: XR CHEST 1V INDICATIONS: suspected sepsis TECHNIQUE: One view of the chest was acquired. COMPARISON: [facility], CR, XR CHEST 1 VIEW, 10/12/2023, 19:03. [facility], CR, XR CHEST 1V, 10/11/2023, 13:48. [facility], CR, XR CHEST FOR PICC 1V, 08/07/2022, 10:06. FINDINGS: Surgical changes and devices: None. Lungs and pleura: Low lung volumes. No dense consolidation or pleural effusion Mediastinum: Cardiomediastinal contours are unchanged. Heart size is at the upper limit of normal Bones and chest wall: Degenerative findings IMPRESSION: Low lung volumes on single view radiograph, limiting evaluation. No acute abnormality Dictated by: Bo Anderson M.D. on 11/10/2023 at 13:09 Approved by: Bo Anderson M.D. on 11/10/2023 at 13:10
[2023-11-10 12:56] LABS: Add Manual Diff / Slide Review NO; Basophils Absolute Auto 0 /uL (0-100); Basophils Percent Auto 0.5 % (0-2); Eosinophils Absolute Auto 200 /uL (0-450); Eosinophils Percent Auto 2.8 % (2-4); Hematocrit 45.6 % (36-46); Hemoglobin 14.9 g/dL (12.0-16.0); Lymphocytes Absolute Auto 2100 /uL (1100-4500); Lymphocytes Percent Auto 25.5 % (25-40); Mean Corpuscular HGB Conc 32.7 % (30-36); Mean Corpuscular Hemoglobin 30.3 PG (26-34); Mean Corpuscular Volume 92.7 fL (80-100); Monocytes Absolute Auto 700 /uL (0-900); Neutrophils Absolute Auto 5200 /uL (1500-7000); Neutrophils Percent Auto 63.2 % (50-75); Platelet Count 231 X10^3/uL (150-400); Red Blood Cell Count 4.91 X10^6/uL (4.0-5.2); Red Cell Distribution Width 15.3 % (11.6-14.8); White Blood Cell Count 8.3 X10^3/uL (4.5-11.0)
[2023-11-10] MEDS: SODIUM CHLORIDE 0.9% 1,000 ML 1000 ML IV ×2 (13:03→15:19)
[2023-11-10 13:10] LABS: INR 0.9 (0.9-1.3); Prothrombin Time 10.7 SECONDS (9.4-12.5)
[2023-11-10 13:12] LABS: PTT Partial Thromboplastin Tim 39 SECONDS (25.1-36.5)
[2023-11-10 13:14] LABS: Alanine Aminotransferase 20 IU/L (<35); Albumin 4.3 g/dL (3.5-5.0); Albumin Globulin Ratio 1.3 (1.0-2.8); Alkaline Phosphatase 86 U/L (38-126); Aspartate Aminotransferase 25 IU/L (14-36); Bilirubin Total 0.8 mg/dL (0.2-1.3); Blood Urea Nitrogen 12 mg/dL (7-17); Calcium 9.5 mg/dL (8.4-10.2); Carbon Dioxide 29 mmol/L (22-32); Chloride 107 mmol/L (98-107); Estimated Glomerular Filt Rate > 60 mL/min (>60); Globulin 3.3 g/dL (1.7-4.1); Glucose 112 mg/dL (80-110); HEMOLYSIS < 15 (0-50); Lactate (Lactic Acid) 2.2 mmol/L (0.7-2.1); Lipase 31 U/L (23-300); Potassium 4.4 mmol/L (3.4-5.1); Sodium 140 mmol/L (137-145); Total Protein 7.6 g/dL (6.3-8.2)
[2023-11-10 13:31] LABS: Procalcitonin 0.05 ng/mL (<0.5)
--- NOTE | 2023-11-10 14:02 | ED_ITS ---
HPI - General Adult General Chief complaint: Abdominal Pain Stated complaint: POSS UTI Time Seen by Provider: 11/10/23 13:54 Source: patient Mode of arrival: Wheelchair Limitations: no limitations History of Present Illness HPI narrative: 68-year-old female MS, depression, frequent UTIs, dimension who is brought for increased confusion. Patient had recent hospitalization on October 10 initially seen here and transferred to [facility] for obstructing kidney stone on the left where she had a ureteral stent placed. Patient that time had flank pain. Today she is describing abdominal pain but on the left side no flank pain. Family notes she seems little more confused they are describing in the past 24+ hours. Patient is alert she does not answer questions appropriately. Patient has not had any reported fevers. She denies chest pain or shortness of breath, no nausea or vomiting. She indicates it hurts in the left lower quadrant. Denies any flank pain, does have some pain in the right with palpation. Patient normally uses a brief for urination she denies any dysuria or new urgency or frequency. She states she has been having bowel movements no reports of black or bloody stools. Patient and family notes that to have a urine sample she likely requires cath urine. Her ureteral stent was supposed rescheduled. She is following with Dr. Vallejo. She was also noted to have an ovarian cyst and has been scheduled to follow up with Ob but that had to be rescheduled as they could not get the ultrasound because patient could not walk to the table. Related Data Home Medications Medication Instructions Recorded Confirmed VITAMIN D (Vitamin D3) 2,000 unit PO QDAY ##0 02/21/16 10/21/23 ibuprofen 200 mg tablet 400 mg PO Q4HP PRN Pain (Scale 02/21/16 10/21/23 Score 4-6) ##0 docusate calcium 240 mg capsule 240 mg PO DAILY 12/01/22 10/21/23 Previous Rx's Medication Instructions Recorded cyanocobalamin (vitamin B-12) 1,000 mcg PO QDAY #30 tabs 02/02/18 1,000 mcg tablet,extended release nystatin 100,000 unit/gram topical 1 applic topical BID PRN rash #30 12/16/22 powder grams calcium carbonate 600 mg-vitamin See Rx Instructions .Route 01/02/23 D3 10 mcg (400 unit) tablet .COMPLEX #90 tabs CRANBERRY 450MG W/VITC See Rx Instructions .Route 01/07/23 .COMPLEX #180 caps bupropion HCl 150 mg 24 hr tablet, 150 mg PO QAM #30 tabs 03/25/23 extended release (Wellbutrin XL) quetiapine 25 mg tablet (Seroquel) 25 mg PO DAILY #30 tabs 07/29/23 cefpodoxime 100 mg tablet 100 mg PO BID #14 tabs 08/31/23 d-mannose 500 mg capsule 1,000 mg (2 x 500 mg) PO DAILY 09/18/23 #180 caps trazodone 50 mg tablet 25 mg (1/2 x 50 mg) PO ONCE PM #45 09/18/23 tabs polyethylene glycol 3350 17 17 g PO DAILY PRN constipation 10/21/23 gram/dose oral powder (Miralax) #238 grams sennosides 8.6 mg tablet (Senna 8.6 mg PO DAILY PRN constipation 10/21/23 Lax) #90 tabs fluoxetine 40 mg capsule 40 mg PO DAILY #90 caps 10/27/23 cefdinir 300 mg capsule 300 mg PO BID 7 days #14 caps 11/10/23 Allergies Allergy/AdvReac Type Severity Reaction Status Date / Time Sulfa (Sulfonamide Allergy Severe Rash, Verified 10/21/23 15:17 Antibiotics) itching sulfadiazine Allergy Mild RASH Verified 10/21/23 15:17 Review of Systems Review of Systems ROS Unobtainable: All systems reviewed & are unremarkable except as noted in HPI and below Patient History Medical History Muscular deconditioning Vitamin B deficiency Hyperlipidemia (Unknown) 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) Frequent UTI (Unknown) Depression (Unknown) Multiple sclerosis (1972) Family History Sister Age: 63 Fibromyalgia Social History household members: none Smoking Status: Never smoker alcohol intake: current Smoking Status: Never smoker alcohol intake frequency: holidays/special occasions only Substance Use Type: does not use Exam Narrative Exam Narrative: GENERAL: Alert and oriented x three, elderly female in mild distress HEENT: Head normocephalic, atraumatic, EOMI, pupils reactive, face symmetric, moist mucous membranes NECK: Supple, full range of motion CARDIOVASCULAR: Regular rate and rhythm without murmurs, rubs or gallops. No JVD. No edema bilateral lower extremities. RESPIRATORY: Breath sounds equal bilaterally, no wheezes rales or rhonchi. No tachypnea or accessory muscle use. ABDOMEN: Soft, positive for left lower quadrant tenderness. Normoactive bowel sounds all 4 quadrants. No guarding or rebound, rigidity, no mass, no rash or skin changes. : No CVA tenderness bilaterally. EXTREMITIES: Normal range of motion, no clubbing or edema. Neurovascularly intact NEUROLOGICAL: Cranial nerves II through XII grossly intact. Moving all extremities, patient is generally weak. SKIN: Warm, dry, no petechiae, no rashes or lesions. Initial Vital Signs Initial Vital Signs: Vital Signs Temperature 98.5 F 11/10/23 11:29 Pulse Rate 104 H 11/10/23 11:29 Respiratory Rate 18 11/10/23 11:29 Blood Pressure 113/55 L 11/10/23 11:29 Pulse Oximetry 97 11/10/23 11:29 Oxygen Delivery Method Room Air 11/10/23 11:29 Course Orders Ordered: ED Orders 11/10/23 11:43 XR chest 1V Stat EKG-12 Lead Stat RT Consult Eval and Treat NOW 11/10/23 12:28 Complete Blood Count AUTO DIFF Stat Comprehensive Metabolic Panel Stat Lactate (Lactic Acid) Stat Lipase Stat PTT Partial Thromboplastin Ricki Stat Procalcitonin Stat Prothrombin Time INR Stat 11/10/23 12:39 Blood Culture Stat 11/10/23 14:27 CT kidney ureter bladder (KUB) Stat US pelvic complete Stat 11/10/23 15:35 UA Complete [Urinalysis and Microscopic] Stat Urine Culture Stat Discontinued Medications Acetaminophen (Acetaminophen 325 Mg Tablet) 975 mg PO NOW ONE Stop: 11/10/23 14:28 Last Admin: 11/10/23 14:55 Dose: 975 mg Documented By: NORMA Sodium Chloride (Normal Saline 0.9%) 1,000 mls @ 1,000 mls/hr IV BOLUS ONE Stop: 11/10/23 12:41 Last Infusion: 11/10/23 14:14 Dose: Infused Documented By: Admin: 11/10/23 13:03 Dose: 1,000 mls/hr Documented By: NORMA Sodium Chloride (Normal Saline 0.9%) 1,000 mls @ 1,000 mls/hr IV BOLUS ONE Stop: 11/10/23 16:13 Last Infusion: 11/10/23 16:19 Dose: Infused Documented By: Admin: 11/10/23 15:19 Dose: 1,000 mls/hr Documented By: NORMA Ceftriaxone Sodium 1,000 mg/ (Sodium Chloride) 100 mls @ 200 mls/hr IV NOW ONE Stop: 11/10/23 16:55 Last Infusion: 11/10/23 18:32 Dose: Infused Documented By: Admin: 11/10/23 17:50 Dose: 200 mls/hr Documented By: NORMA Ondansetron HCl (Ondansetron 4 Mg/2 Ml Inj) 4 mg IV NOW PRN PRN Reason: Nausea And Vomiting Ondansetron HCl (Ondansetron 4 Mg Odt) 4 mg SL NOW PRN PRN Reason: Nausea And Vomiting Sodium Chloride (Sodium Chloride 0.9% Flush) 10 ml IV BID ISABELLA Sodium Chloride (Sodium Chloride 0.9% Flush) 10 ml IV PRN PRN PRN Reason: Flush Vital Signs Vital signs: Vital Signs - 8 hr 11/10/23 11:29 11/10/23 11:54 11/10/23 11:55 Temperature 98.5 F Pulse Rate 104 H 123 H Respiratory Rate 18 Blood Pressure 113/55 L 133/64 Pulse Oximetry 97 97 Oxygen Delivery Method Room Air 11/10/23 11:55 11/10/23 12:00 11/10/23 12:00 Temperature Pulse Rate 123 H 113 H Respiratory Rate Blood Pressure 117/57 L Pulse Oximetry 97 97 Oxygen Delivery Method 11/10/23 12:30 11/10/23 12:30 11/10/23 13:00 Temperature Pulse Rate 100 H 83 Respiratory Rate Blood Pressure 106/63 Pulse Oximetry 95 97 Oxygen Delivery Method 11/10/23 13:02 11/10/23 13:02 11/10/23 13:30 Temperature Pulse Rate 84 77 Respiratory Rate 29 H 23 Blood Pressure 92/65 Pulse Oximetry 96 93 Oxygen Delivery Method 11/10/23 13:30 11/10/23 14:00 11/10/23 14:00 Temperature Pulse Rate 79 Respiratory Rate 17 Blood Pressure 134/60 127/60 Pulse Oximetry 93 Oxygen Delivery Method 11/10/23 14:30 11/10/23 14:30 11/10/23 15:00 Temperature Pulse Rate 94 H 88 Respiratory Rate 21 25 H Blood Pressure 130/63 Pulse Oximetry 94 94 Oxygen Delivery Method 11/10/23 15:12 11/10/23 15:12 11/10/23 15:30 Temperature Pulse Rate 80 80 Respiratory Rate 17 Blood Pressure 110/56 L Pulse Oximetry 95 94 Oxygen Delivery Method 11/10/23 15:30 11/10/23 16:00 11/10/23 16:00 Temperature Pulse Rate 79 Respiratory Rate 15 Blood Pressure 127/58 L 131/63 Pulse Oximetry 92 Oxygen Delivery Method 11/10/23 16:30 11/10/23 16:30 11/10/23 17:00 Temperature Pulse Rate 75 85 Respiratory Rate 22 Blood Pressure 116/56 L Pulse Oximetry 91 Oxygen Delivery Method 11/10/23 17:01 11/10/23 17:01 11/10/23 17:30 Temperature Pulse Rate 81 98 H Respiratory Rate Blood Pressure 127/66 Pulse Oximetry 94 94 Oxygen Delivery Method 11/10/23 17:31 11/10/23 17:31 11/10/23 18:00 Temperature Pulse Rate 96 H 85 Respiratory Rate Blood Pressure 138/74 Pulse Oximetry 94 92 Oxygen Delivery Method 11/10/23 18:00 Temperature Pulse Rate Respiratory Rate Blood Pressure 143/63 H Pulse Oximetry Oxygen Delivery Method Medical Decision Making Lab Data 11/10/23 12:28 11/10/23 12:28 Labs: Lab Results 11/10/23 11/10/23 11/10/23 Range/Units 12:28 14:50 15:35 WBC 8.3 (4.5-11.0) X10^3/uL RBC 4.91 (4.0-5.2) X10^6/uL Hgb 14.9 (12.0-16.0) g/dL Hct 45.6 (36-46) % MCV 92.7 (80-100) fL MCH 30.3 (26-34) PG MCHC 32.7 (30-36) % RDW 15.3 H (11.6-14.8) % Plt Count 231 (150-400) X10^3/uL Neut % (Auto) 63.2 (50-75) % Lymph % (Auto) 25.5 (25-40) % [place] % (Auto) 8.0 (3-14) % Eos % (Auto) 2.8 (2-4) % Baso % (Auto) 0.5 (0-2) % Neut # (Auto) 5200 (2962-4593) /uL Lymph # (Auto) 2100 (1794-9317) /uL [place] # (Auto) 700 (0-900) /uL Eos # (Auto) 200 (0-450) /uL Baso # (Auto) 0 (0-100) /uL PT 10.7 (9.4-12.5) SECONDS INR 0.9 (0.9-1.3) APTT 39 H (25.1-36.5) SECONDS Sodium 140 (137-145) mmol/L Potassium 4.4 (3.4-5.1) mmol/L Chloride 107 (98-107) mmol/L Carbon Dioxide 29 (22-32) mmol/L BUN 12 (7-17) mg/dL Creatinine 0.86 (0.52-1.04) mg/dL Estimated GFR > 60 (>60) mL/min BUN/Creatinine Ratio 14.0 (6-22) Glucose 112 H (80-110) mg/dL Lactate 2.2 H 1.8 (0.7-2.1) mmol/L Calcium 9.5 (8.4-10.2) mg/dL Total Bilirubin 0.8 (0.2-1.3) mg/dL AST 25 (14-36) IU/L ALT 20 (<35) IU/L Alkaline Phosphatase 86 (38-126) U/L Total Protein 7.6 (6.3-8.2) g/dL Albumin 4.3 (3.5-5.0) g/dL Globulin 3.3 (1.7-4.1) g/dL Albumin/Globulin Ratio 1.3 (1.0-2.8) Lipase 31 (23-300) U/L Procalcitonin 0.05 (<0.5) ng/mL Urine Color Yellow Urine Appearance Cloudy Urine pH 6.0 (4.5-8.0) Ur Specific [place] 1.010 (1.000-1.035) Urine Protein 1+ H (Negative) Urine Glucose (UA) Negative (Negative) g/dL Urine Ketones Negative (NEGATIVE) Urine Occult Blood 3+ H (Negative) Urine Nitrate Positive H (Negative) Urine Bilirubin Negative (NEGATIVE) Urine Urobilinogen 0.2 (0.2) E.U./dL Ur Leukocyte Esterase 3+ H (NEGATIVE) Urine RBC 10-30/hpf H (0-5/HPF) Urine WBC >100/hpf H (0-5/HPF) Ur Squamous Epith Cells 10-30 /hpf H D (0-5/HPF) Urine Bacteria Many (>30) H (None) Ur Culture Indicated? Specimen cultured Vol Urine Centrifuged 10ml (spun) Imaging Data Chest x-ray: Radiologist's Impression: Sabiha Pierson??68??F??1955 ? Allergy/Adv: Sulfa (Sulfonamide Antibiotics), sulfadiazine (More??) Close Chest X-Ray (Signed) Bo Anderson - 11/10/23 Abdomen/Pelvis CT (Signed) Denton Jaramillo - 10/11/23 Chest X-Ray (Signed) Denton Jaramillo - 10/11/23 Chest X-Ray (Signed) Christian Riveraderic - 08/07/[address] (Signed) Bo Anderson - 08/05/22 Chest X-Ray (Signed) Анна Newman - 08/05/22 Abdomen/Pelvis CT (Signed) Mily Villegas - 08/04/22 Knee X-Ray (Signed) Chauncey Dia - 11/30/19 Ankle X-Ray (Signed) Chauncey Dia - 11/30/19 Foot X-Ray (Signed) Chauncey Dia - 03/16/19 Ankle MRI (Signed) Mitchel Cardona - 01/06/19 Ankle X-Ray (Signed) Desiree Becerril - 11/25/[address] (Signed) Desiree Becerril - 09/16/18 Launch?[address] [address] XRay Report Signed Patient: Sabiha Pierson MR#: [id number] : 1955 Acct:[id number] Age/Sex: 68 / F Date of Service: 11/10/23 Loc: ED Accession Number: [id number] Procedure: XR chest 1V Ordering Provider: Annita Montgomery D.O. PROCEDURE: XR CHEST 1V INDICATIONS: suspected sepsis TECHNIQUE: One view of the chest was acquired. COMPARISON: [facility], CR, XR CHEST 1 VIEW, 10/12/2023, 19:03. [facility], CR, XR CHEST 1V, 10/11/2023, 13:48. [facility], CR, XR CHEST FOR PICC 1V, 08/07/2022, 10:06. FINDINGS: Surgical changes and devices: None. Lungs and pleura: Low lung volumes. No dense consolidation or pleural effusion Mediastinum: Cardiomediastinal contours are unchanged. Heart size is at the upper limit of normal Bones and chest wall: Degenerative findings IMPRESSION: Low lung volumes on single view radiograph, limiting evaluation. No acute abnormality Dictated by: Bo Anderson M.D. on 11/10/2023 at 13:09 Approved by: Bo Anderson M.D. on 11/10/2023 at 13:10 pelvic us: Radiologist's Impression: [place] [address] Ultrasound Report Signed Patient: Sabiha Pierson MR#: [id number] : 1955 Acct:[id number] Age/Sex: 68 / F Date of Service: 11/10/23 Loc: ED Accession Number: [id number] Procedure: US pelvic complete Ordering Provider: Annita Montgomery D.O. PROCEDURE: US PELVIC COMPLETE INDICATIONS: FOLLOW-UP OVARIAN CYST ON CT TECHNIQUE: Real-time scanning was performed of the pelvic organs, with image documentation. Additional endovaginal scanning was necessary due to incomplete visualization of the adnexal and endometrial structures by transabdominal scanning. COMPARISON: [facility], CT, CT KIDNEY URETER BLADDER (KUB), 11/10/2023, 14:34. [facility], CT, CT ABDOMEN PELVIS WITHOUT CONTRAST, 10/13/2023, 14:37. FINDINGS: Uterus: Uterus is anteverted and normal in size at 3.7 x 1.7 x 3.4 cm. The myometrium is homogeneous. The endometrium measures 2.2 mm combined thickness. No endometrial mass or fluid is seen. Ovaries: Bilateral ovaries are not visualized. Simple appearing cystic structure is noted in right adnexa measures 6.6 x 6.0 x 5.7 cm in size. No internal vascularity. No adnexal masses are seen. Other: No pathologic free abdominal or pelvic fluid. IMPRESSION: 1. Likely simple cyst in right adnexa is seen. Bilateral ovaries are not visualized. No solid adnexal mass. 2. Normal appearing uterus and endometrium. We strive to produce accurate, complete, and clear reports of imaging services. To assist us in improving patient care, this report was composed using standard report templates and voice recognition software. Therefore, it may contain abnormal punctuation, insertions and/or omissions. Occasional wrong-word or sound-alike substitutions may occur. Though we review the report and make efforts to correct it, we do recommend that the report be read carefully in proper context to recognize any text inaccuracies. Dictated by: Mitchel Cardona M.D. on 11/10/2023 at 16:55 Approved by: Mitchel Cardona M.D. on 11/10/2023 at 16:57 [facility] Narrative Medical decision making narrative: 68-year-old female known MS with complaint of increased confusion she is alert and appropriate to answer questions. Slightly tachycardic upon arrival but improved after fluids afebrile. Patient had recent UTI with kidney stone and was transferred for sepsis with a obstructive down. Labs show white count 8.3 hemoglobin of 14 platelets of 231, electrolytes are appropriate lactate was 2.2 repeat is 1.8 creatinine is normal, LFTs are negative procalcitonin is normal. Shows protein 3+ blood positive nitrates bilirubin 3+ leuks 10-30 RBCs 100 WBCs 10-30 squamous many bacteria. Patient's most recent urine culture showed Proteus mirabilis greater than 100,000, does have sensitivity to Rocephin CT KUB shows Gerber catheter in vaginal cavity bladder is underdistended. Right adnexal cystic lesion seen measuring 6.4 cm no acute or osseous findings slightly increased left pelvic ectasia ureteral stent appears expected position no obstructive stone. Patient did have urine out when catheter was placed but does not need to be in place so was removed she does not usually use 1 and was not retaining. Ultrasound does show cyst the ovary she has follow up in place with OBGYN. Spoke with Dr. Vallejo Urology at [facility] patient is felt appropriate for discharge she has normal vitals, normal labs without any signs of sepsis based on old culture and sensitivities from 10/11/2023 which I discussed with Urology they recommend cefdinir 300 mg p.o. b.i.d. x7 days Spoke with patient and family they feel comfortable with this plan. Discussed return precautions they asked if they can have a no in discharge papers about increasing her fluid intake. We did remove the Gerber catheter if she does not normally have one. Discharge Plan Departure Patient Disposition: Home Clinical Impression: Acute UTI, Retained ureteral stent, Ovarian cyst Activity Restrictions/Additional Instructions: Please follow up with Urology, I spoke to Dr. Vallejo today. Your ureteral stent does appear to be in place, you did have your ultrasound performed which shows the ovarian cyst on the right side this does need to be followed up at your appointment scheduled with gynecology. Make sure you are drinking six, 8 oz bottles of water daily You received a dose of IV antibiotic here in the department. They recommend we start you on antibiotics please take cefdinir 300 mg 1 tablet twice daily for 7 days. Prescription sent to [place] in [place]. Please return for increasing changes in mental status fevers, increasing weakness, chest pain or shortness of breath, persistent vomiting or other new or concerning changes. Prescriptions: New cefdinir 300 mg capsule 300 mg PO BID 7 Days Qty: 14 0RF No Action VITAMIN D (Vitamin D3) 2,000 unit PO QDAY Qty: 0 ibuprofen 200 MG tablet 400 mg PO Q4HP PRN (Reason: Pain (Scale Score 4-6)) Qty: 0 cyanocobalamin (vitamin B-12) 1,000 mcg tablet extended release 1,000 mcg PO QDAY Qty: 30 6RF nystatin 100,000 unit/gram powder 1 applic topical BID PRN (Reason: rash) Qty: 30 11RF calcium carbonate-vitamin D3 600 mg-10 mcg (400 unit) tablet See Rx Instructions .ROUTE .COMPLEX Qty: 90 3RF Dose Instruction: TAKE 1 TABLET BY MOUTH EVERY DAY Rx Instructions: TAKE 1 TABLET BY MOUTH EVERY DAY CRANBERRY 450MG W/VITC See Rx Instructions .ROUTE .COMPLEX Qty: 180 3RF Dose Instruction: TAKE 2 CAPSULES BY MOUTH DAILY Rx Instructions: TAKE 2 CAPSULES BY MOUTH DAILY quetiapine [Seroquel] 25 mg tablet 25 mg PO DAILY Qty: 30 5RF cefpodoxime 100 mg tablet 100 mg PO BID Qty: 14 0RF Rx Instructions: must administer with a meal/food fluoxetine 40 mg capsule 40 mg PO DAILY Qty: 90 3RF docusate calcium 240 mg capsule 240 mg PO DAILY bupropion HCl [Wellbutrin XL] 150 mg tablet extended release 24 hr 150 mg PO QAM Qty: 30 11RF trazodone 50 mg tablet 25 mg PO ONCE PM Qty: 45 3RF d-mannose 500 mg capsule 1,000 mg PO DAILY Qty: 180 3RF polyethylene glycol 3350 [Miralax] 17 gram/dose powder 17 g PO DAILY PRN (Reason: constipation) Qty: 238 11RF sennosides [Senna Lax] 8.6 mg tablet 8.6 mg PO DAILY PRN (Reason: constipation) Qty: 90 3RF Referrals: Vasiliy Rubio DO [Primary Care Provider] - Stand Alone Forms: Patient Portal/API
--- NOTE | 2023-11-10 14:27 | DI.US.S_ITS ---
PROCEDURE: US PELVIC COMPLETE INDICATIONS: FOLLOW-UP OVARIAN CYST ON CT TECHNIQUE: Real-time scanning was performed of the pelvic organs, with image documentation. Additional endovaginal scanning was necessary due to incomplete visualization of the adnexal and endometrial structures by transabdominal scanning. COMPARISON: , CT, CT KIDNEY URETER BLADDER (KUB), 11/10/2023, 14:34. [facility], CT, CT ABDOMEN PELVIS WITHOUT CONTRAST, 10/13/2023, 14:37. FINDINGS: Uterus: Uterus is anteverted and normal in size at 3.7 x 1.7 x 3.4 cm. The myometrium is homogeneous. The endometrium measures 2.2 mm combined thickness. No endometrial mass or fluid is seen. Ovaries: Bilateral ovaries are not visualized. Simple appearing cystic structure is noted in right adnexa measures 6.6 x 6.0 x 5.7 cm in size. No internal vascularity. No adnexal masses are seen. Other: No pathologic free abdominal or pelvic fluid. IMPRESSION: 1. Likely simple cyst in right adnexa is seen. Bilateral ovaries are not visualized. No solid adnexal mass. 2. Normal appearing uterus and endometrium. We strive to produce accurate, complete, and clear reports of imaging services. To assist us in improving patient care, this report was composed using standard report templates and voice recognition software. Therefore, it may contain abnormal punctuation, insertions and/or omissions. Occasional wrong-word or sound-alike substitutions may occur. Though we review the report and make efforts to correct it, we do recommend that the report be read carefully in proper context to recognize any text inaccuracies. Dictated by: Mitchel Cardona M.D. on 11/10/2023 at 16:55 Approved by: Mitchel Cardona M.D. on 11/10/2023 at 16:57
--- NOTE | 2023-11-10 14:27 | DI.CT.S_ITS ---
PROCEDURE: CT KIDNEY URETER BLADDER (KUB) INDICATIONS: L abd pain, ureteral stent, confusion TECHNIQUE: Axial sections were acquired from the lung bases to the pubic symphysis. Coronal and sagittal reformats were performed. For radiation dose reduction, the following was used: automated exposure control, adjustment of mA and/or kV according to patient size. COMPARISON: [facility], CT, CT ABDOMEN PELVIS WITHOUT CONTRAST, 10/13/2023, 14:37. [facility], CT, KIDNEY/ URETER/BLADDER, 05/11/2014, 8:14. FINDINGS: Image quality: Diagnostic Lower chest: Scattered scarring and atelectasis and possible peripheral reticulation. Normal heart size. Liver: Solid organs are not well evaluated in the absence of intravenous contrast. No contour deforming mass. Gallbladder and biliary system: Possible gallbladder sludge. No pathologic biliary dilation Pancreas: [id number] parenchymal atrophy. No ductal dilation Spleen: Nonenlarged Adrenals: No discrete left nodule. A small right adrenal nodule is again seen, possibly an adenoma. This could be confirmed on adrenal protocol imaging if needed. Kidneys: No contour deforming mass. Slightly increased left pelviectasis. Stent is in place, with the proximal pigtail in the renal pelvis and the distal pigtail in the bladder. No right hydronephrosis. No calcified obstructing stone. Vessels and lymph nodes: No abdominal aortic aneurysm. No pathologic lymph nodes by size criteria. Bowel and peritoneum: No evidence of small bowel obstruction. No pathologic ascites or drainable abscess. 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 The bladder is under distended. Right adnexal cystic lesion again seen measuring about 6.4 cm, for which MRI could be used to further evaluate if needed. Bones: No acute or suspicious osseous finding. There are degenerative changes. IMPRESSION: Slightly increased left pelviectasis. Ureteral stent appears to be in expected position. No obstructing calcified stone. The Gerber balloon appears to be in the vagina. Other stable and incidental findings and options for further evaluation above, including a right adrenal nodule and right adnexal cystic lesion. Dictated by: Bo Anderson M.D. on 11/10/2023 at 15:48 Approved by: Bo Anderson M.D. on 11/10/2023 at 15:55
[2023-11-10 14:28] LABS: Reflexed Lactate in 2 Hours Y
[2023-11-10] MEDS: ACETAMINOPHEN 325 MG TABLET 975 MG PO (14:55)
[2023-11-10 15:19] LABS: Lactate 2HR (Lactic Acid Rflx) 1.8 mmol/L (0.7-2.1)
[2023-11-10 15:41] LABS: Bilirubin Urine UA NEGATIVE (NEGATIVE); Color Urine UA YELLOW; Glucose Urine UA NEGATIVE (Negative); Ketones Urine UA NEGATIVE (NEGATIVE); Leukocyte Esterase Urine UA 3+ (NEGATIVE); Nitrite Urine UA POSITIVE (Negative); Occult Blood Urine UA 3+ (Negative); Protein Urine UA 1+ (Negative); Urobilinogen Urine UA 0.2 E.U./dL (0.2)
[2023-11-10 15:49] LABS: Appearance Urine UA CLOUDY
[2023-11-10 15:54] LABS: Bacteria Urine Many (>30); RBC Urine 10-30/HPF (0-5/HPF); Squamous Epithelial Cell Urine 10-30 /HPF (0-5/HPF); Urine Volume 10mL (spun); WBC Urine >100/HPF (0-5/HPF)
[2023-11-10 15:55] LABS: Culture Indicated Urine Specimen Cultured
[2023-11-10] MEDS: cefTRIAXone 1,000 MG in SODIUM CHLORIDE 0.9% 100 ML 200 MG IV (17:50)
== END 2023-11-10 19:12 | disposition home or self-care (01) ==
PROVIDERS: Emergency Provider Emergency Medicine; Family Provider Family Medicine; PCP Family Medicine
DX: N39.0 Urinary tract infection, site not specified (principal); N83.201 Unspecified ovarian cyst, right side; R00.0 Tachycardia, unspecified; R10.32 Left lower quadrant pain; Z96.0 Presence of urogenital implants
CPT/HCPCS: 36415; 71045; 74176; 76830; 76856; 80053; 81001; 83605; 83690; 84145; 85025; 85610; 85730; 87040; 87086; 96361; 96365; 99284; 99285; J0696

== ENCOUNTER 2023-11-14 07:06 | Inpatient (IN) | payer OTHER, SELFPAY ==
[2022-08-04 17:23] VITALS: BMI 36.8
[2023-11-14] VITALS (22 sets, daily range): BP systolic 98–143; BP diastolic 31–86; PULSE 90–118; RESP 14–41; TEMP 36.5–37.8; O2SAT 81–100; BMI 31.8; BMI 33.7
--- NOTE | 2023-11-14 | PATH_ITS ---
[facility] Accession Number: [id number] . 01 Material submitted: . gallbladder - GALLBLADDER . 01 Diagnosis: Gallbladder, cholecystectomy: Cholelithiasis with acute cholecystitis and marked mucosal erosion. Negative for malignancy. TXN 11/20/2023 1241 Local . 01 Electronically signed: . Kit Mendoza MD, Pathologist NPI- [id number] . 01 Gross description: . Received in formalin with two identifiers and gallbladder, is a disrupted gallbladder measuring 8.7 x 4.5 x 2.7 cm with several full thickness defects measuring up to 1.1 cm in greatest dimension. The presumed cystic duct margin is inked blue, and no pericystic lymph node is identified. The lumen contains two yellow crystalline calculi measuring up to 1.3 cm in greatest dimension grossly obstructing the presumed cystic duct. Minimal viscous bile is identified. The mucosa is green and velvety with yellow areas of discoloration and no polyps or lesions identified. The morales average 0.3 cm thick. Development Analyst sections to include the presumed cystic duct margin and full thickness sections are submitted in A1. ([id number]) /MRV 11/17/2023 1714 Local . 01 Pathologist provided ICD-10: K81.0 . 01 CPT . 879999 Performed at: [address], [place], [place] [id number] MD Ag Munoz MD Phone: [phone]
--- NOTE | 2023-11-14 07:24 | DI.RAD.S_ITS ---
PROCEDURE: XR CHEST 1V INDICATIONS: suspected sepsis TECHNIQUE: One view of the chest was acquired. COMPARISON: [facility], CT, CT KIDNEY URETER BLADDER (KUB), 11/10/2023, 14:34. [facility], CR, XR CHEST 1V, 11/10/2023, 12:21. FINDINGS: Surgical changes and devices: None. Lungs and pleura: Shallow inspiration. There is right hemidiaphragm elevation. Left basilar opacity is most likely atelectasis. No pleural effusions or pneumothorax. Mediastinum: Mediastinal contours appear normal. Heart size is normal. Bones and chest wall: No suspicious bony lesions. Overlying soft tissues appear unremarkable. IMPRESSION: 1. Shallow inspiration and left basilar atelectasis. 2. Right hemidiaphragm elevation. Dictated by: José Miguel Fermin M.D. on 11/14/2023 at 7:51 Approved by: José Miguel Fermin M.D. on 11/14/2023 at 7:52
--- NOTE | 2023-11-14 07:28 | ED.ABDPAIN ---
HPI - Abdominal Pain General Chief Complaint: Abdominal Pain Stated Complaint: abd pain Time Seen by Provider: 11/14/23 07:21 Source: patient and EMS Mode of arrival: EMS History of Present Illness HPI narrative: Patient is a 68-year-old female history of multiple sclerosis frequent UTIs dementia living at long-term care facility recent hospitalization at [facility] October 10 with sepsis and left ureteral kidney stone with stent, presents to day with right lower quadrant pain. It appears that she was here on November 09 discharged with a UTI on cefdinir, which is appropriate based on culture. She denies any nausea or vomiting. She is noted to be tachycardic and hypoxic requiring 2 L oxygen. Denies any shortness of breath or cough. It is noted from hospitalization records that she required 2 L of oxygen while [facility] with an on clear explanation possibly pneumonia. She has not normally on oxygen. She is currently afebrile. Related Data Home Medications Medication Instructions Recorded Confirmed VITAMIN D (Vitamin D3) 2,000 unit PO QDAY ##0 02/21/16 10/21/23 ibuprofen 200 mg tablet 400 mg PO Q4HP PRN Pain (Scale 02/21/16 10/21/23 Score 4-6) ##0 docusate calcium 240 mg capsule 240 mg PO DAILY 12/01/22 10/21/23 Previous Rx's Medication Instructions Recorded cyanocobalamin (vitamin B-12) 1,000 mcg PO QDAY #30 tabs 02/02/18 1,000 mcg tablet,extended release nystatin 100,000 unit/gram topical 1 applic topical BID PRN rash #30 12/16/22 powder grams calcium carbonate 600 mg-vitamin See Rx Instructions .Route 01/02/23 D3 10 mcg (400 unit) tablet .COMPLEX #90 tabs CRANBERRY 450MG W/VITC See Rx Instructions .Route 01/07/23 .COMPLEX #180 caps bupropion HCl 150 mg 24 hr tablet, 150 mg PO QAM #30 tabs 03/25/23 extended release (Wellbutrin XL) quetiapine 25 mg tablet (Seroquel) 25 mg PO DAILY #30 tabs 07/29/23 d-mannose 500 mg capsule 1,000 mg (2 x 500 mg) PO DAILY 09/18/23 #180 caps trazodone 50 mg tablet 25 mg (1/2 x 50 mg) PO ONCE PM #45 09/18/23 tabs polyethylene glycol 3350 17 17 g PO DAILY PRN constipation 10/21/23 gram/dose oral powder (Miralax) #238 grams sennosides 8.6 mg tablet (Senna 8.6 mg PO DAILY PRN constipation 10/21/23 Lax) #90 tabs fluoxetine 40 mg capsule 40 mg PO DAILY #90 caps 10/27/23 nitrofurantoin 100 mg PO BID 7 days #14 caps 11/12/23 monohydrate/macrocrystals 100 mg capsule (Macrobid) ondansetron 4 mg disintegrating 4 mg PO TID PRN nausea and 11/12/23 tablet vomiting #30 tabs Allergies Allergy/AdvReac Type Severity Reaction Status Date / Time Sulfa (Sulfonamide Allergy Severe Rash, Verified 11/14/23 07:24 Antibiotics) itching sulfadiazine Allergy Mild RASH Verified 11/14/23 07:24 Patient History Medical History Muscular deconditioning Vitamin B deficiency Hyperlipidemia (Unknown) 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) Frequent UTI (Unknown) Depression (Unknown) Multiple sclerosis (1972) Family History Sister Age: 63 Fibromyalgia Social History household members: none Smoking Status: Never smoker alcohol intake: current Smoking Status: Never smoker alcohol intake frequency: holidays/special occasions only Substance Use Type: does not use Exam Initial Vital Signs Initial Vital Signs: Vital Signs Temperature 98 F 11/14/23 07:19 Pulse Rate 98 H 11/14/23 07:19 Respiratory Rate 16 11/14/23 07:19 Blood Pressure 143/71 H 11/14/23 07:19 Pulse Oximetry 87 L 11/14/23 07:19 Oxygen Delivery Method Room Air 11/14/23 07:19 GENERAL: Alert 68-year-old female appears weak and in no acute distress. HEENT: Head atraumatic,EOMI, pupils reactive, face symmetric, moist mucous membranes CARDIOVASCULAR: Regular rate and rhythm without murmurs, rubs or gallops. RESPIRATORY: Decreased breath sounds on right greater than left ABDOMEN: Soft, right upper/lower quadrant tenderness no guarding or rebound : No CVA tenderness EXTREMITIES: Normal range of motion, no clubbing or edema. Neurovascularly intact NEUROLOGICAL: Alert and oriented x4.Normal gait and speech. SKIN: Warm, dry, no laceration, no petechiae, no rashes or lesions. Course Orders Ordered: ED Orders 11/14/23 07:00 BNP [NT-proBNP (BNP-Adult 18+)] Stat Complete Blood Count AUTO DIFF Stat Comprehensive Metabolic Panel Stat Lactate (Lactic Acid) Stat Lipase Stat PTT Partial Thromboplastin Ricki Stat Procalcitonin Stat Prothrombin Time INR Stat Troponin & CK Cardiac Panel Stat 11/14/23 07:24 XR chest 1V Stat EKG-12 Lead Stat RT Consult Eval and Treat NOW 11/14/23 07:25 Respiratory Panel (Film Array) Stat 11/14/23 07:29 CT abdomen pelvis w con Stat 11/14/23 07:40 Blood Culture Stat 11/14/23 07:42 CBC Auto Diff [Complete Blood Count AUTO DIFF] Stat 11/14/23 08:06 Ictotest Urine Stat Urinalysis and Microscopic Stat Urine Culture Stat 11/14/23 08:55 US abdomen limited Stat Acetaminophen (Acetaminophen 325 Mg Tablet) 975 mg PO Q6HR PRN PRN Reason: Fever/Mild Pain (1-3) Hydromorphone HCl (Hydromorphone 0.5 Mg Inj) 0.5 mg IV Q4H PRN PRN Reason: Pain, Moderate (4-6) Hydromorphone HCl (Hydromorphone 1 Mg Inj) 0 mg IV Q5MIN PRN PRN Reason: Pain, Mild (1-3) Sodium Chloride (Normal Saline 0.9%) 1,000 mls @ 100 mls/hr IV CONT ISABELLA Stop: 11/14/23 23:44 Last Infusion: 11/14/23 13:23 Dose: 100 mls/hr Documented By: Infusion: 11/14/23 13:15 Dose: 100 mls/hr Documented By: MARY LOU Admin: 11/14/23 12:38 Dose: 100 mls/hr Documented By: MARY LOU Piperacillin Sod/Tazobactam (Sod 3.375 gm/ Sodium Chloride) 100 mls @ 25 mls/hr IV Q8H [facility] Last Infusion: 11/14/23 13:23 Dose: Infused Documented By: Infusion: 11/14/23 13:15 Dose: 25 mls/hr Documented By: MARY LOU Admin: 11/14/23 12:37 Dose: 25 mls/hr Documented By: MARY LOU Lactated Ringer's (Lactated Ringers) 1,000 mls @ 42 mls/hr IV CONT ISABELLA Melatonin (Melatonin 3 Mg Tablet) 6 mg PO BEDTIME PRN PRN Reason: Insomnia Naloxone HCl (Naloxone 0.4 Mg/Ml Vial) 0.2 mg IV Q2MIN PRN PRN Reason: Opiate Reversal Ondansetron HCl (Ondansetron 4 Mg/2 Ml Inj) 4 mg IV NOW PRN PRN Reason: Nausea And Vomiting Ondansetron HCl (Ondansetron 4 Mg Odt) 4 mg SL NOW PRN PRN Reason: Nausea And Vomiting Ondansetron HCl (Ondansetron 4 Mg/2 Ml Inj) 4 mg IV Q4HR PRN PRN Reason: Nausea And Vomiting Ondansetron HCl (Ondansetron 4 Mg/2 Ml Inj) 4 mg IV NOW PRN PRN Reason: Nausea And Vomiting Oxycodone HCl (Oxycodone Ir 5 Mg Tablet) 5 mg PO Q4HR PRN PRN Reason: Pain, Moderate (4-6) Oxycodone HCl (Oxycodone Ir 5 Mg Tablet) 5 mg PO PACUNOW PRN PRN Reason: Mild or moderate pain Discontinued Medications Bupivacaine HCl/Epinephrine Bitart (Bupivacaine 0.5% W/ Epi (Pf) 30 Ml Vial) 30 ml INJ NOW ONE Stop: 11/14/23 14:41 Last Admin: 11/14/23 14:40 Dose: 30 ml Documented By: Sodium Chloride (Normal Saline 0.9%) 1,000 mls @ 1,000 mls/hr IV BOLUS ONE Stop: 11/14/23 08:23 Last Infusion: 11/14/23 08:59 Dose: Infused Documented By: MARY LOU Admin: 11/14/23 07:46 Dose: 1,000 mls/hr Documented By: MARY LOU Sodium Chloride (Normal Saline 0.9%) 1,641 mls @ 547 mls/hr 30 ml/kg infuse over 3 hr (1641 ml) IV NOW ONE Stop: 11/14/23 10:55 Last Infusion: 11/14/23 12:37 Dose: Infused Documented By: MARY LOU Admin: 11/14/23 09:29 Dose: 547 mls/hr Documented By: MARY LOU Piperacillin Sod/Tazobactam (Sod 4.5 gm/ Sodium Chloride) 100 mls @ 200 mls/hr IV NOW ONE Stop: 11/14/23 07:57 Last Infusion: 11/14/23 08:59 Dose: Infused Documented By: MARY LOU Admin: 11/14/23 08:04 Dose: 200 mls/hr Documented By: BRIGITTE Vital Signs Vital signs: Vital Signs - 8 hr 11/14/23 09:16 11/14/23 09:30 11/14/23 10:00 Temperature 99.9 F H 100.0 F H Pulse Rate 99 H 104 H 99 H Respiratory Rate 24 31 H 24 Pulse Oximetry 94 95 11/14/23 10:30 Temperature 99.9 F H Pulse Rate 99 H Respiratory Rate 31 H Pulse Oximetry 93 MDM - Abdominal Pain Lab Data 11/14/23 07:42 11/14/23 07:00 Labs: Lab Results 11/14/23 11/14/23 11/14/23 Range/Units 07:00 07:25 07:42 WBC 42.9 H* 43.2 H* (4.5-11.0) X10^3/uL RBC 5.04 4.85 (4.0-5.2) X10^6/uL Hgb 15.2 14.7 (12.0-16.0) g/dL Hct 45.7 43.9 (36-46) % MCV 90.8 90.7 (80-100) fL MCH 30.2 30.3 (26-34) PG MCHC 33.2 33.5 (30-36) % RDW 14.9 H 15.0 H (11.6-14.8) % Plt Count 250 234 (150-400) X10^3/uL Neut % (Auto) Not Reportable 87.0 H Lymph % (Auto) Not Reportable 1.9 L Linn % (Auto) Not Reportable 11.0 Eos % (Auto) Not Reportable 0.0 L Baso % (Auto) Not Reportable 0.1 Neut # (Auto) 36685 H (3381-6177) /uL Lymph # (Auto) Not Reportable 800 L Linn # (Auto) Not Reportable 4800 H Eos # (Auto) 0 (0-450) /uL Baso # (Auto) Not Reportable 0 Total Counted 100 Seg Neutrophils % 81.0 H (38-70) % Band Neutrophils % 5.0 (3-7) % Lymphocytes % (Manual) 2.0 L (25-45) % Monocytes % (Manual) 12.0 H (2-11) % Neutrophils # (Manual) 12305 H (4582-9773) /uL RBC Morphology Normal morphology PT 13.9 H (9.4-12.5) SECONDS INR 1.2 (0.9-1.3) APTT 30 (25.1-36.5) SECONDS Sodium 134 L (137-145) mmol/L Potassium 4.0 (3.4-5.1) mmol/L Chloride 99 (98-107) mmol/L Carbon Dioxide 28 (22-32) mmol/L BUN 16 (7-17) mg/dL Creatinine 0.65 (0.52-1.04) mg/dL Estimated GFR > 60 (>60) mL/min BUN/Creatinine Ratio 24.6 H (6-22) Glucose 133 H (80-110) mg/dL Lactate 1.7 (0.7-2.1) mmol/L Calcium 9.8 (8.4-10.2) mg/dL Total Bilirubin 1.8 H (0.2-1.3) mg/dL AST 37 H (14-36) IU/L ALT 28 (<35) IU/L Alkaline Phosphatase 91 (38-126) U/L Total Creatine Kinase 33 (30-135) U/L Troponin I < 0.012 (0.01-0.034) ng/mL NT-Pro-B Natriuret Pep 2900 H (<125) pg/mL Total Protein 7.2 (6.3-8.2) g/dL Albumin 3.9 (3.5-5.0) g/dL Globulin 3.3 (1.7-4.1) g/dL Albumin/Globulin Ratio 1.2 (1.0-2.8) Lipase < 10 L D (23-300) U/L Procalcitonin 0.85 H (<0.5) ng/mL Urine Color Urine Appearance Urine pH (4.5-8.0) Ur Specific [place] (1.000-1.035) Urine Protein (Negative) Urine Glucose (UA) (Negative) g/dL Urine Ketones (NEGATIVE) Urine Occult Blood (Negative) Urine Nitrate (Negative) Urine Bilirubin (NEGATIVE) Ur Bilirubin Confirm (Negative) Urine Urobilinogen (0.2) E.U./dL Ur Leukocyte Esterase (NEGATIVE) Urine RBC (0-5/HPF) Urine WBC (0-5/HPF) Ur Squamous Epith Cells (0-5/HPF) Urine Bacteria (None) Ur Culture Indicated? Vol Urine Centrifuged Chlamy pneumoniae PCR Not detected (Not Detect) Adenovirus (PCR) Not detected (Not Detect) B.parapertussis DNA PCR Not detected (Not Detecte) Coronavirus OC43 (PCR) Not detected (Not Detect) Coronavirus HKU1 (PCR) Not detected (Not Detect) Coronavirus 229E (PCR) Not detected (Not Detect) SARS-CoV-2 (PCR) Not detected (Not Detecte) Coronavirus NL63 (PCR) Not detected (Not Detect) Human Metapneumovir PCR Not detected (Not Detect) Influenza Type A (PCR) Not detected (Not Detect) Influenza Type B (PCR) Not detected (Not Detect) M. pneumoniae (PCR) Not detected (Not Detect) Parainfluenza 1 (PCR) Not detected (Not Detect) Parainfluenza 2 (PCR) Not detected (Not Detect) Parainfluenza 3 (PCR) Not detected (Not Detect) Parainfluenza 4 (PCR) Not detected (Not Detect) RSV (PCR) Not detected (Not Detect) Entero/Rhino (PCR) Not detected (Not Detect) 11/14/23 Range/Units 08:06 WBC (4.5-11.0) X10^3/uL RBC (4.0-5.2) X10^6/uL Hgb (12.0-16.0) g/dL Hct (36-46) % MCV (80-100) fL MCH (26-34) PG MCHC (30-36) % RDW (11.6-14.8) % Plt Count (150-400) X10^3/uL Neut % (Auto) Lymph % (Auto) Linn % (Auto) Eos % (Auto) Baso % (Auto) Neut # (Auto) (0545-8196) /uL Lymph # (Auto) Linn # (Auto) Eos # (Auto) (0-450) /uL Baso # (Auto) Total Counted Seg Neutrophils % (38-70) % Band Neutrophils % (3-7) % Lymphocytes % (Manual) (25-45) % Monocytes % (Manual) (2-11) % Neutrophils # (Manual) (8523-5803) /uL RBC Morphology PT (9.4-12.5) SECONDS INR (0.9-1.3) APTT (25.1-36.5) SECONDS Sodium (137-145) mmol/L Potassium (3.4-5.1) mmol/L Chloride (98-107) mmol/L Carbon Dioxide (22-32) mmol/L BUN (7-17) mg/dL Creatinine (0.52-1.04) mg/dL Estimated GFR (>60) mL/min BUN/Creatinine Ratio (6-22) Glucose (80-110) mg/dL Lactate (0.7-2.1) mmol/L Calcium (8.4-10.2) mg/dL Total Bilirubin (0.2-1.3) mg/dL AST (14-36) IU/L ALT (<35) IU/L Alkaline Phosphatase (38-126) U/L Total Creatine Kinase (30-135) U/L Troponin I (0.01-0.034) ng/mL NT-Pro-B Natriuret Pep (<125) pg/mL Total Protein (6.3-8.2) g/dL Albumin (3.5-5.0) g/dL Globulin (1.7-4.1) g/dL Albumin/Globulin Ratio (1.0-2.8) Lipase (23-300) U/L Procalcitonin (<0.5) ng/mL Urine Color Red Urine Appearance Cloudy Urine pH 6.5 (4.5-8.0) Ur Specific [place] 1.025 (1.000-1.035) Urine Protein 3+ H (Negative) Urine Glucose (UA) Negative (Negative) g/dL Urine Ketones Trace H (NEGATIVE) Urine Occult Blood 3+ H (Negative) Urine Nitrate Positive H (Negative) Urine Bilirubin 2+ H (NEGATIVE) Ur Bilirubin Confirm Positive H (Negative) Urine Urobilinogen 1.0 (0.2) E.U./dL Ur Leukocyte Esterase 2+ H (NEGATIVE) Urine RBC >100/hpf H (0-5/HPF) Urine WBC 5-10/hpf H (0-5/HPF) Ur Squamous Epith Cells None seen D (0-5/HPF) Urine Bacteria Few (2-10) H (None) Ur Culture Indicated? Specimen cultured Vol Urine Centrifuged 3 Chlamy pneumoniae PCR (Not Detect) Adenovirus (PCR) (Not Detect) B.parapertussis DNA PCR (Not Detecte) Coronavirus OC43 (PCR) (Not Detect) Coronavirus HKU1 (PCR) (Not Detect) Coronavirus 229E (PCR) (Not Detect) SARS-CoV-2 (PCR) (Not Detecte) Coronavirus NL63 (PCR) (Not Detect) Human Metapneumovir PCR (Not Detect) Influenza Type A (PCR) (Not Detect) Influenza Type B (PCR) (Not Detect) M. pneumoniae (PCR) (Not Detect) Parainfluenza 1 (PCR) (Not Detect) Parainfluenza 2 (PCR) (Not Detect) Parainfluenza 3 (PCR) (Not Detect) Parainfluenza 4 (PCR) (Not Detect) RSV (PCR) (Not Detect) Entero/Rhino (PCR) (Not Detect) Imaging Data Chest x-ray: Radiologist's Impression: PROCEDURE: XR CHEST 1V INDICATIONS: suspected sepsis TECHNIQUE: One view of the chest was acquired. COMPARISON: [facility], CT, CT KIDNEY URETER BLADDER (KUB), 11/10/2023, 14:34. [facility], CR, XR CHEST 1V, 11/10/2023, 12:21. FINDINGS: Surgical changes and devices: None. Lungs and pleura: Shallow inspiration. There is right hemidiaphragm elevation. Left basilar opacity is most likely atelectasis. No pleural effusions or pneumothorax. Mediastinum: Mediastinal contours appear normal. Heart size is normal. Bones and chest wall: No suspicious bony lesions. Overlying soft tissues appear unremarkable. IMPRESSION: 1. Shallow inspiration and left basilar atelectasis. 2. Right hemidiaphragm elevation. Dictated by: José Miguel Fermin M.D. on 11/14/2023 at 7:51 CT scan - abdomen/pelvis: Radiologist's Impression: PROCEDURE: CT ABDOMEN PELVIS W CON INDICATIONS: rlq pain TECHNIQUE: After the administration of intravenous contrast, axial sections acquired from the lung bases to the pubic symphysis. Coronal and sagittal reformats were performed. For radiation dose reduction, the following was used: automated exposure control, adjustment of mA and/or kV according to patient size. COMPARISON: [facility], CT, CT KIDNEY URETER BLADDER (KUB), 11/10/2023, 14:34. [facility], CT, CT ABDOMEN PELVIS WITHOUT CONTRAST, 10/13/2023, 14:37. [facility], CR, XR CHEST 1V, 11/14/2023, 7:33. [facility], CT, CT ABDOMEN PELVIS W CON, 10/11/2023, 14:16. FINDINGS: Image quality: Diagnostic. Lower Chest: Lingula infiltrate, atelectasis or scarring. Right hemidiaphragm elevation and right basilar consolidation or atelectasis. There is a 3 mm nodule in the right middle lobe. Heart size is prominent. Trace pericardial effusion. Small hiatal hernia and mild concentric thickening of GE junction. ABDOMEN: Liver: No solid mass. Normal size. Mild hepatic steatosis. Gallbladder: Mildly distended. No radiopaque gallstones. There is pericholecystic stranding suspicious for acute cholecystitis. Biliary ducts: No biliary dilation. Pancreas: No ductal dilation. Spleen: Size is within normal limits. Adrenal Glands: There is a 1.5 cm right adrenal nodule. Kidneys and Ureters: There is a left side ureteral stent. Mild left hydronephrosis is present, unchanged. No hydronephrosis. No solid mass. No complex renal cystic lesion which requires follow up. Stomach and Bowel: Appendix is mildly enlarged measuring 8 mm. No periappendiceal stranding to suggest acute appendicitis. Normal colonic caliber, without significant wall thickening. A moderate amount of stool in colon and rectum. 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 Small free fluid in the right pericolic gutter. No free air. Ventral Wall: No significant ventral hernia. Abdominal Nodes: No retroperitoneal or mesenteric adenopathy by size criteria. Vessels: Aorta and inferior vena cava are normal in size. PELVIS: Pelvic Organs: Unremarkable. Bladder: There is a Gerber catheter within the urinary bladder. Pelvic Nodes: No enlarged lymph nodes. Miscellaneous: No inguinal hernias are seen. Bones: No aggressive osseous abnormality. IMPRESSION: 1. Mildly distended gallbladder. No radiopaque gallstones. There is pericholecystic stranding, suspicious for acute cholecystitis. Recommend gallbladder ultrasound or HIDA scan for further evaluation. 2. Mild thickening of the duodenum. Differential diagnoses are duodenitis versus spread of inflammation/infection from adjacent gallbladder infection. 3. Mild enlargement of appendix. No other secondary signs for acute appendicitis. 4. There is a 5.9 x 6.3 cm cystic mass in the right adnexa, probably arising from the right ovary. It appears stable since the last CT. Consider pelvic ultrasound for follow-up. 5. There is a small amount of free fluid in the lesser sac and the right pericolic gutter. 6. Mild left hydronephrosis. There is a left ureteral stent. In addition, there is a Gerber catheter 7. A 1.5 cm right adrenal nodule. Recommend adrenal protocol CT or MRI for follow-up evaluation. 8. Lingular infiltrate, atelectasis or scarring. Dictated by: José Miguel Fermin M.D. on 11/14/2023 at 8:37 US - abdomen: Radiologist's Impression: PROCEDURE: US ABDOMEN LIMITED INDICATIONS: ruq TECHNIQUE: Real-time focused scanning was performed of the abdomen, with image documentation. COMPARISON: [facility], CR, XR CHEST 1V, 11/14/2023, 7:33. [facility], CT, CT ABDOMEN PELVIS W CON, 11/14/2023, 8:20. FINDINGS: The liver is overall not well seen. No focal liver abnormality is seen. Layering sludge can be seen within the gallbladder. There is an area of focal gallbladder wall thickening that measures up to 9 mm. There is pericholecystic fluid. The sonographic Alvarez sign is positive. There is no biliary dilatation, the common bile duct measures 6-7 mm. The pancreas is not well seen, secondary to overlying bowel gas. IMPRESSION: Strong suspicion for cholecystitis, with layering sludge, a thickened gallbladder wall with pericholecystic fluid and a positive sonographic Alvarez sign. Dictated by: David Costa M.D. on 11/14/2023 at 9:02 [facility] Narrative Medical decision making narrative: MDM CC: Right-sided abdominal Complicating co-morbidities: Multiple sclerosis, frequent UTIs recent kidney stone with left-sided stent Medical records reviewed: Recent ED visit and [facility] Differential considered: Cholecystitis choledocholithiasis pancreatitis appendicitis diverticulitis Exam documented above, pertinent findings include: Patient is tachycardic with mild hypoxia requiring 1-2 L she is quite tender on the right side positive Alvarez's sign seems more tender upper than lower she is awake alert and seems appropriate. Lab Test results independently reviewed as above. Pertinent findings: WBC 42.9 with repeat of 43.2, previously 8.3 on November 09 hemoglobin 14.7 hematocrit 43.9, significant left shift, sodium 134 potassium 4.0, chloride 99, carbon dioxide 28 BUN 16 creatinine 0.65, glucose 133, lactate 1.7, BNP 2900 trop negative procalcitonin 0.85, bilirubin 1.8, AST 37 ALT 28 previously bilirubin was 0.8 AST 25 and ALT 20 Imaging studies independently reviewed: Chest x-ray atelectasis on the left right hemidiaphragm elevation, abdominal CT mildly distended gallbladder no radiopaque stones pericholecystic stranding suspicious for acute cholecystitis mild thickening of the duodenum mild enlargement of appendix without secondary signs of acute appendicitis cystic mass 5.9 x 6.3 cm right adnexa Ultrasound suspicion for cholecystitis with layering sludge and thickened gallbladder wall pericholecystic fluid Consultations: Dr. Otero consulted in regards for acute cholecystitis. Recommend speaking with family he will come down to the ED and review imaging and speak with patient Dr. Bhatti in ED to see and evaluate patient. He will discuss with family. Treatments: Zosyn sepsis fluids, Re-evaluations: Patient does seem to be doing better after IV fluids and antibiotics. Discussion: Patient is medically complicated 68-year-old female presenting today with right-sided abdominal pain. She was seen evaluated here 5 days ago. She had a white count of 8 at that time but now significantly higher elevation of 42 confirmed by repeat with WBC of 43. She also has mild elevation of bilirubin 1.8 previously 8.0 with slight elevation of AST. She is tender on the right side. Imaging report does confirm acute cholecystitis both by ultrasound and CT. She is given Zosyn. She is got low-grade temp. It also appears that she has a UTI with hematuria nitrates which he frequently gets. She is given sepsis fluids as well She is noted to be mildly hypoxic with oxygen requirement of 1-2 L. After reports of previous hospitalization it appears that this has happened before. PE was considered however with no real shortness of breath it is thought that hypoxia maybe secondary to multiple comorbidities and pain. BNP is also noted to be elevated 2900 but she does not seem to be fluid overloaded and no prior history of congestive heart failure Discussion with Dr. Bhatti will likely scan for PE after OR. Discharge Plan Departure Patient Disposition: Admitted As Inpatient Clinical Impression: Acute cholecystitis, Sepsis, Acute UTI Admit Date/Time: 11/14/23 10:52 Admit Provider: Nomi Bhatti
[2023-11-14 07:32] LABS: Hematocrit 45.7 % (36-46); Hemoglobin 15.2 g/dL (12.0-16.0); Mean Corpuscular HGB Conc 33.2 % (30-36); Mean Corpuscular Hemoglobin 30.2 PG (26-34); Mean Corpuscular Volume 90.8 fL (80-100); Platelet Count 250 X10^3/uL (150-400); Red Blood Cell Count 5.04 X10^6/uL (4.0-5.2); Red Cell Distribution Width 14.9 % (11.6-14.8)
[2023-11-14 07:33] LABS: INR 1.2 (0.9-1.3); Prothrombin Time 13.9 SECONDS (9.4-12.5)
[2023-11-14 07:35] LABS: Add Manual Diff / Slide Review YES; White Blood Cell Count 42.9 X10^3/uL (4.5-11.0)
[2023-11-14 07:36] LABS: PTT Partial Thromboplastin Tim 30 SECONDS (25.1-36.5)
[2023-11-14 07:37] LABS: Creatine Kinase 33 U/L (30-135)
[2023-11-14 07:38] LABS: Alanine Aminotransferase 28 IU/L (<35); Albumin 3.9 g/dL (3.5-5.0); Albumin Globulin Ratio 1.2 (1.0-2.8); Alkaline Phosphatase 91 U/L (38-126); Aspartate Aminotransferase 37 IU/L (14-36); BUN Creatinine Ratio 24.6 (6-22); Bilirubin Total 1.8 mg/dL (0.2-1.3); Blood Urea Nitrogen 16 mg/dL (7-17); Calcium 9.8 mg/dL (8.4-10.2); Carbon Dioxide 28 mmol/L (22-32); Chloride 99 mmol/L (98-107); Estimated Glomerular Filt Rate > 60 mL/min (>60); Globulin 3.3 g/dL (1.7-4.1); Glucose 133 mg/dL (80-110); HEMOLYSIS 30 (0-50); Lactate (Lactic Acid) 1.7 mmol/L (0.7-2.1); Lipase < 10 U/L (23-300); Sodium 134 mmol/L (137-145); Total Protein 7.2 g/dL (6.3-8.2)
[2023-11-14] MEDS: SODIUM CHLORIDE 0.9% 1,000 ML 1000 ML IV (07:46)
[2023-11-14 07:49] LABS: NT-proBNP (BNP-Adult 18+) 2900 pg/mL (<125); Troponin I < 0.012 ng/mL (0.01-0.034)
[2023-11-14 07:54] LABS: Add Manual Diff / Slide Review NO; Basophils Absolute Auto 0 /uL (0-100); Basophils Percent Auto 0.1 % (0-2); Eosinophils Absolute Auto 0 /uL (0-450); Hematocrit 43.9 % (36-46); Hemoglobin 14.7 g/dL (12.0-16.0); Lymphocytes Absolute Auto 800 /uL (1100-4500); Lymphocytes Percent Auto 1.9 % (25-40); Mean Corpuscular HGB Conc 33.5 % (30-36); Mean Corpuscular Hemoglobin 30.3 PG (26-34); Mean Corpuscular Volume 90.7 fL (80-100); Monocytes Absolute Auto 4800 /uL (0-900); Neutrophils Absolute Auto 37500 /uL (1500-7000); Platelet Count 234 X10^3/uL (150-400); Red Blood Cell Count 4.85 X10^6/uL (4.0-5.2)
[2023-11-14 07:54] LABS: Procalcitonin 0.85 ng/mL (<0.5)
[2023-11-14 07:56] LABS: White Blood Cell Count 43.2 X10^3/uL (4.5-11.0)
[2023-11-14 08:01] LABS: Neutrophils Absolute Manual 36894 /uL (3000-5900); RBC Morphology Normal Morphology; Total Cells Counted 100
[2023-11-14] MEDS: PIPERACILLIN/TAZO 4.5 GM in SODIUM CHLORIDE 0.9% 100 ML IV (08:04)
[2023-11-14 08:33] LABS: Adenovirus Not Detected (Not Detect); B. parapertussis Not Detected (Not Detecte); Bordetella pertussis Not Detected (Not Detect); Chlamydophila pneumoniae Not Detected (Not Detect); Coronavirus 229E Not Detected (Not Detect); Coronavirus HKU1 Not Detected (Not Detect); Coronavirus NL 63 Not Detected (Not Detect); Coronavirus OC43 Not Detected (Not Detect); Human Metapneumovirus Not Detected (Not Detect); Human Rhinovirus/Enterovirus Not Detected (Not Detect); Influenza A Not Detected (Not Detect); Influenza B Not Detected (Not Detect); Mycoplasma pneumoniae Not Detected (Not Detect); Parainfluenza Virus 1 Not Detected (Not Detect); Parainfluenza Virus 2 Not Detected (Not Detect); Parainfluenza Virus 3 Not Detected (Not Detect); Parainfluenza Virus 4 Not Detected (Not Detect); Respiratory Syncytial Virus Not Detected (Not Detect); SARS- CoV-2 Not Detected (Not Detecte)
[2023-11-14 08:38] LABS: Appearance Urine UA CLOUDY; Bilirubin Urine UA 2+ (NEGATIVE); Color Urine UA RED; Glucose Urine UA NEGATIVE (Negative); Ketones Urine UA TRACE (NEGATIVE); Leukocyte Esterase Urine UA 2+ (NEGATIVE); Nitrite Urine UA POSITIVE (Negative); Occult Blood Urine UA 3+ (Negative); Protein Urine UA 3+ (Negative); Specific Gravity Urine UA 1.025 (1.000-1.035); pH Urine UA 6.5 (4.5-8.0)
[2023-11-14 08:40] LABS: Bacteria Urine Few (2-10); Culture Indicated Urine Specimen Cultured; Ictotest Urine Positive (Negative); RBC Urine >100/HPF (0-5/HPF); Squamous Epithelial Cell Urine None Seen (0-5/HPF); Urine Volume 3; WBC Urine 5-10/HPF (0-5/HPF)
--- NOTE | 2023-11-14 08:55 | DI.US.S_ITS ---
PROCEDURE: US ABDOMEN LIMITED INDICATIONS: ruq TECHNIQUE: Real-time focused scanning was performed of the abdomen, with image documentation. COMPARISON: [facility], CR, XR CHEST 1V, 11/14/2023, 7:33. [facility], CT, CT ABDOMEN PELVIS W CON, 11/14/2023, 8:20. FINDINGS: The liver is overall not well seen. No focal liver abnormality is seen. Layering sludge can be seen within the gallbladder. There is an area of focal gallbladder wall thickening that measures up to 9 mm. There is pericholecystic fluid. The sonographic Alvarez sign is positive. There is no biliary dilatation, the common bile duct measures 6-7 mm. The pancreas is not well seen, secondary to overlying bowel gas. IMPRESSION: Strong suspicion for cholecystitis, with layering sludge, a thickened gallbladder wall with pericholecystic fluid and a positive sonographic Alvarez sign. Dictated by: David Costa M.D. on 11/14/2023 at 9:02 Approved by: David Costa M.D. on 11/14/2023 at 9:04
[2023-11-14] MEDS: SODIUM CHLORIDE 0.9% 1,641 ML 547 ML IV (09:29)
--- NOTE | 2023-11-14 11:03 | PM.CN ---
History of Present Illness Consult details Date Patient Seen: 11/14/23 Time Patient Seen: 11:03 Chief complaint: abd pain Narrative: Sabiha is a 68-year-old woman with MS with delayed cognitive who presented from a long-term care facility today with abdominal pain. A CT scan and an ultrasound have demonstrated inflammation around the gallbladder along with sludge. Her white blood cell count was noted to be over 40,000. She was recently treated at [facility] for a kidney stone. Meds Home Medications and Allergies Home Medications Medication Instructions Recorded Confirmed Type VITAMIN D (Vitamin D3) 2,000 unit PO QDAY ##0 02/21/16 10/21/23 History ibuprofen 200 mg tablet 400 mg PO Q4HP PRN Pain (Scale 02/21/16 10/21/23 History Score 4-6) ##0 cyanocobalamin (vitamin B-12) 1,000 mcg PO QDAY #30 tabs 02/02/18 10/21/23 Rx 1,000 mcg tablet,extended release docusate calcium 240 mg capsule 240 mg PO DAILY 12/01/22 10/21/23 History nystatin 100,000 unit/gram topical 1 applic topical BID PRN rash #30 12/16/22 10/21/23 Rx powder grams calcium carbonate 600 mg-vitamin See Rx Instructions .Route 01/02/23 10/21/23 Rx D3 10 mcg (400 unit) tablet .COMPLEX #90 tabs CRANBERRY 450MG W/VITC See Rx Instructions .Route 01/07/23 10/21/23 Rx .COMPLEX #180 caps bupropion HCl 150 mg 24 hr tablet, 150 mg PO QAM #30 tabs 03/25/23 10/21/23 Rx extended release (Wellbutrin XL) quetiapine 25 mg tablet (Seroquel) 25 mg PO DAILY #30 tabs 07/29/23 10/21/23 Rx d-mannose 500 mg capsule 1,000 mg (2 x 500 mg) PO DAILY 09/18/23 10/21/23 Rx #180 caps trazodone 50 mg tablet 25 mg (1/2 x 50 mg) PO ONCE PM #45 09/18/23 10/21/23 Rx tabs polyethylene glycol 3350 17 17 g PO DAILY PRN constipation 10/21/23 10/21/23 Rx gram/dose oral powder (Miralax) #238 grams sennosides 8.6 mg tablet (Senna 8.6 mg PO DAILY PRN constipation 10/21/23 10/21/23 Rx Lax) #90 tabs fluoxetine 40 mg capsule 40 mg PO DAILY #90 caps 10/27/23 Rx nitrofurantoin 100 mg PO BID 7 days #14 caps 11/12/23 Rx monohydrate/macrocrystals 100 mg capsule (Macrobid) ondansetron 4 mg disintegrating 4 mg PO TID PRN nausea and 11/12/23 Rx tablet vomiting #30 tabs Allergies Allergy/AdvReac Type Severity Reaction Status Date / Time Sulfa (Sulfonamide Allergy Severe Rash, Verified 11/14/23 07:24 Antibiotics) itching sulfadiazine Allergy Mild RASH Verified 11/14/23 07:24 Exam Vital Signs (past 8 hours): - 11/14/23 07:19 Temperature 98 F Pulse Rate 98 H Respiratory Rate 16 Blood Pressure 143/71 H Pulse Oximetry 87 L Oxygen Delivery Method Room Air Oxygen Delivery Method Room Air Narrative Exam Narrative: Abdomen tender to palpation on the right side Positive Alvarez sign Objective Labs 11/14/23 07:42 11/14/23 07:00 Labs: Laboratory Results - last 24 hr 11/14/23 11/14/23 11/14/23 07:00 07:25 07:42 WBC 42.9 H* 43.2 H* RBC 5.04 4.85 Hgb 15.2 14.7 Hct 45.7 43.9 MCV 90.8 90.7 MCH 30.2 30.3 MCHC 33.2 33.5 RDW 14.9 H 15.0 H Plt Count 250 234 Neut % (Auto) Not Reportable 87.0 H Lymph % (Auto) Not Reportable 1.9 L Pratt % (Auto) Not Reportable 11.0 Eos % (Auto) Not Reportable 0.0 L Baso % (Auto) Not Reportable 0.1 Neut # (Auto) 80290 H Lymph # (Auto) Not Reportable 800 L Pratt # (Auto) Not Reportable 4800 H Eos # (Auto) 0 Baso # (Auto) Not Reportable 0 Total Counted 100 Seg Neutrophils % 81.0 H Band Neutrophils % 5.0 Lymphocytes % (Manual) 2.0 L Monocytes % (Manual) 12.0 H Neutrophils # (Manual) 94051 H RBC Morphology Normal morphology PT 13.9 H INR 1.2 APTT 30 Sodium 134 L Potassium 4.0 Chloride 99 Carbon Dioxide 28 BUN 16 Creatinine 0.65 Estimated GFR > 60 BUN/Creatinine Ratio 24.6 H Glucose 133 H Lactate 1.7 Calcium 9.8 Total Bilirubin 1.8 H AST 37 H ALT 28 Alkaline Phosphatase 91 Total Creatine Kinase 33 Troponin I < 0.012 NT-Pro-B Natriuret Pep 2900 H Total Protein 7.2 Albumin 3.9 Globulin 3.3 Albumin/Globulin Ratio 1.2 Lipase < 10 L D Procalcitonin 0.85 H Urine Color Urine Appearance Urine pH Ur Specific [place] Urine Protein Urine Glucose (UA) Urine Ketones Urine Occult Blood Urine Nitrate Urine Bilirubin Ur Bilirubin Confirm Urine Urobilinogen Ur Leukocyte Esterase Urine RBC Urine WBC Ur Squamous Epith Cells Urine Bacteria Ur Culture Indicated? Vol Urine Centrifuged Chlamy pneumoniae PCR Not detected Adenovirus (PCR) Not detected B.parapertussis DNA PCR Not detected Coronavirus OC43 (PCR) Not detected Coronavirus HKU1 (PCR) Not detected Coronavirus 229E (PCR) Not detected SARS-CoV-2 (PCR) Not detected Coronavirus NL63 (PCR) Not detected Human Metapneumovir PCR Not detected Influenza Type A (PCR) Not detected Influenza Type B (PCR) Not detected M. pneumoniae (PCR) Not detected Parainfluenza 1 (PCR) Not detected Parainfluenza 2 (PCR) Not detected Parainfluenza 3 (PCR) Not detected Parainfluenza 4 (PCR) Not detected RSV (PCR) Not detected Entero/Rhino (PCR) Not detected 11/14/23 08:06 WBC RBC Hgb Hct MCV MCH MCHC RDW Plt Count Neut % (Auto) Lymph % (Auto) Pratt % (Auto) Eos % (Auto) Baso % (Auto) Neut # (Auto) Lymph # (Auto) Pratt # (Auto) Eos # (Auto) Baso # (Auto) Total Counted Seg Neutrophils % Band Neutrophils % Lymphocytes % (Manual) Monocytes % (Manual) Neutrophils # (Manual) RBC Morphology PT INR APTT Sodium Potassium Chloride Carbon Dioxide BUN Creatinine Estimated GFR BUN/Creatinine Ratio Glucose Lactate Calcium Total Bilirubin AST ALT Alkaline Phosphatase Total Creatine Kinase Troponin I NT-Pro-B Natriuret Pep Total Protein Albumin Globulin Albumin/Globulin Ratio Lipase Procalcitonin Urine Color Red Urine Appearance Cloudy Urine pH 6.5 Ur Specific [place] 1.025 Urine Protein 3+ H Urine Glucose (UA) Negative Urine Ketones Trace H Urine Occult Blood 3+ H Urine Nitrate Positive H Urine Bilirubin 2+ H Ur Bilirubin Confirm Positive H Urine Urobilinogen 1.0 Ur Leukocyte Esterase 2+ H Urine RBC >100/hpf H Urine WBC 5-10/hpf H Ur Squamous Epith Cells None seen D Urine Bacteria Few (2-10) H Ur Culture Indicated? Specimen cultured Vol Urine Centrifuged 3 Chlamy pneumoniae PCR Adenovirus (PCR) B.parapertussis DNA PCR Coronavirus OC43 (PCR) Coronavirus HKU1 (PCR) Coronavirus 229E (PCR) SARS-CoV-2 (PCR) Coronavirus NL63 (PCR) Human Metapneumovir PCR Influenza Type A (PCR) Influenza Type B (PCR) M. 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 She is at risk for complications from surgery and general anesthesia given her comorbidities. I spoke to Sabiha's sister Shaina who is the [id number]. Yaw explained that she does not actually have dementia, she has multiple sclerosis with delayed cognitive response which makes it hard to have a conversation but she is aware and able to make decisions. She does tend to become more confused when she has a urinary tract infection. I explained to Shaina that she has acute cholecystitis. Normally we recommend laparoscopic cholecystectomy with general anesthesia. Because the degree of inflammation is significant there is a higher risk of complications from surgery. There is also a greater risk of requiring drains or needing to convert to an open cholecystectomy. I mentioned that there is increased risks from general anesthesia such as inability to come off the ventilator or postoperative delirium. Shaina wishes to proceed with surgery.
--- NOTE | 2023-11-14 12:23 | SUR.OPER ---
Supine on padded OR bed, head on pillow, arms padded and tucked at sides, legs uncrossed, safety belt at thigh, tape over blanket over lower legs .
[2023-11-14] MEDS: PIPERACILLIN/TAZO 3.375 GM in SODIUM CHLORIDE 0.9% 100 ML IV ×2 (12:37→20:36)
[2023-11-14] MEDS: SODIUM CHLORIDE 0.9% 1,000 ML 100 ML IV ×2 (12:38→17:48)
[2023-11-14] MEDS: BUPIVACAINE 0.5% W/ EPI (PF) 30 ML VIAL INJ (14:40)
--- NOTE | 2023-11-14 14:55 | P.OP_ITS ---
Operative Date/Time/Diagnoses Date of procedure: 11/14/23 Time of procedure: 14:55 Pre-op diagnosis: Acute cholecystitis Post-op diagnosis: other (Necrotizing cholecystitis) Procedure & Clinicians Procedure: Laparoscopic cholecystectomy Same procedure as scheduled: Yes Surgeon: Rashaun Otero Anesthesia Type: General Operative Notes Procedure in detail: The patient was on scheduled antibiotics. The patient was brought to the operating room and placed on the table in the supine position. General endotracheal anesthesia was induced. The abdomen was prepped and draped. A time-out was performed. We made a 1 cm infraumbilical incision. We dissected down to the base of the umbilical stalk using cautery. We grasped the umbilical stalk with a April clamp to elevate the abdominal wall. We scored the fascia in the midline with cautery. We pierced the peritoneum with a Peon clamp. The Isabel port was placed and the abdomen was insufflated to 15 mmHg. A 5 mm 30 degree laparoscopic was inserted. There was no evidence of any injury from the entry. Next, we placed 5 mm ports in the subxiphoid position and right upper quadrant at the midclavicular line and anterior axillary line. The abdominal viscera was significantly edematous and there is minimal space even with full pneumoperitoneum. The patient was then positioned in reverse Trendelenburg and the table was tilted to the left. The gallbladder was lanced and proximally 30 mL of dark green bile were aspirated. The gallbladder was then grasped at the dome and retracted cephalad. There was patchy necrosis of the gallbladder wall. We bluntly dissected the gallbladder free from the surrounding visceral fat. In order to better visualize the critical structures we placed an additional 12 mm port in the right mid abdomen and brought in the disposable fan retractor to retract the viscera down and away from the gallbladder. We then dissected the cystic structures with a combination of hook cautery and blunt dissection. There was a diminutive cystic duct which was necrotic and avulsed easily. The remaining cystic duct stump retracted into the edematous fatty tissue in could not be found but no bile was seen draining from the vicinity. The cystic artery was clipped twice proximally and once distally and divided sharply. The gallbladder was then dissected off the liver and placed in a specimen retrieval bag. We irrigated the right upper quadrant and all the aspirate returned clear. A 15 Maltese drain was brought in through the right lateral port site and placed in the gallbladder fossa. It was secured to the skin with a stitch. We then removed the remaining 5 mm ports under direct vision we removed the axillary 12 mm port and the original Isabel port. The fascia was closed at the axillary 12 mm port site with a single interrupted 0 Vicryl stitch. We then injected some local into the fascia at the umbilicus and closed the fascia with 2 interrupted 0 Vicryl sutures. The skin incisions were closed with 4-0 Monocryl and Steri- Strips were applied. Band-Aids were applied over the Steri-Strips. EBL: 20 mL Specimen: Gallbladder and contents Post-operative Condition: stable Disposition: PACU
--- NOTE | 2023-11-14 15:48 | DI.CT.S_ITS ---
PROCEDURE: CT ANGIO CHEST PE PROTOCOL INDICATIONS: hypoxic, please evaluate for PE TECHNIQUE: After the administration of intravenous contrast, 2 mm thick sections acquired from the pulmonary apices to the posterior costophrenic angles. 3-dimensional maximum intensity projection (MIP) coronal and sagittal reformats were then acquired through the thorax. For radiation dose reduction, the following was used: automated exposure control, adjustment of mA and/or kV according to patient size. COMPARISON: [facility], CR, XR CHEST 1V, 11/14/2023, 7:33. [facility], CT, CT ABDOMEN PELVIS W CON, 11/14/2023, 8:20. [facility], US, US ABDOMEN LIMITED, 11/14/2023, 9:44. FINDINGS: Image quality: Diagnostic. Pulmonary arteries: Pulmonary arteries are normal in size, and demonstrate no intraluminal filling defects to suggest central pulmonary embolism. Lower Neck: No enlarged lymph nodes. Thyroid: No thyroid nodules which require sonographic follow up, per consensus guidelines. Axillae: No enlarged lymph nodes. Chest Wall: Unremarkable. Bones: Age-appropriate bony degenerative changes are seen. Lungs and Pleura: Patchy dependent consolidation can be seen, right worse than left. Mild patchy infiltrates can be seen within the right upper lobe and the left upper lobe. There is a trace right-sided pleural effusion. No pneumothorax is seen. Low lung volumes are noted. This causes a crowded appearance to the lung markings and limits evaluation. Heart: Heart size is normal. No pericardial effusion. Thoracic Vessels: No aortic aneurysm. Mediastinum and Jasmin: No enlarged lymph nodes. Esophagus: No wall thickening. No hiatal hernia. Upper Abdomen: Interval cholecystectomy, with a right upper quadrant drain placed. Generalized inflammatory change can be seen involving the right upper quadrant. There is a minimal amount of postoperative gas seen. The visualized portions of the upper abdominal structures are otherwise unremarkable for imaging technique. IMPRESSION: No pulmonary embolus. Patchy infiltrates can be seen involving both upper lobes. There is a trace right-sided pleural effusion. Apparent dependent atelectasis. Interval cholecystectomy, with a right upper quadrant drain seen. Dictated by: David Costa M.D. on 11/14/2023 at 15:55 Approved by: David Costa M.D. on 11/14/2023 at 15:58
--- NOTE | 2023-11-14 15:57 | P.HP_ITS ---
History of Present Illness History of Present Illness Date Patient Seen: 11/14/23 Chief complaint: abd pain Narrative: Sabiha Persaud is a 68yo F with PMH of wheelchair-bound due to progressive multiple sclerosis, frequent UTI's, depression, HLD, and obesity who presents with acute RUQ pain. Found to have acute cholecystitis. Patient is alert and oriented and tells me she has been having RUQ pain for a few days, and would want surgery to prevent from getting worse. Dr. Otero to take to surgery later today. Says she has also been having a cough. She denies CP, SOB, NV, or diarrhea. 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) Frequent UTI (Unknown) Depression (Unknown) Multiple sclerosis (1971) Family History Sister Age: 63 Fibromyalgia Social History household members: none Smoking Status: Never smoker alcohol intake: current Meds Home Medications and Allergies Home Medications Medication Instructions Recorded Confirmed Type VITAMIN D (Vitamin D3) 2,000 unit PO QDAY ##0 02/21/16 11/15/23 History ibuprofen 200 mg tablet 400 mg PO Q4HP PRN Pain (Scale 02/21/16 11/15/23 History Score 4-6) ##0 cyanocobalamin (vitamin B-12) 1,000 mcg PO QDAY #30 tabs 02/02/18 11/15/23 Rx 1,000 mcg tablet,extended release docusate calcium 240 mg capsule 240 mg PO DAILY 12/01/22 11/15/23 History nystatin 100,000 unit/gram topical 1 applic topical BID PRN rash #30 12/16/22 11/15/23 Rx powder grams calcium carbonate 600 mg-vitamin See Rx Instructions .Route 01/02/23 11/15/23 Rx D3 10 mcg (400 unit) tablet .COMPLEX #90 tabs CRANBERRY 450MG W/VITC See Rx Instructions .Route 01/07/23 10/21/23 Rx .COMPLEX #180 caps quetiapine 25 mg tablet (Seroquel) 25 mg PO DAILY #30 tabs 07/29/23 11/15/23 Rx trazodone 50 mg tablet 25 mg (1/2 x 50 mg) PO ONCE PM #45 09/18/23 11/15/23 Rx tabs polyethylene glycol 3350 17 17 g PO DAILY PRN constipation 10/21/23 11/15/23 Rx gram/dose oral powder (Miralax) #238 grams sennosides 8.6 mg tablet (Senna 8.6 mg PO DAILY PRN constipation 10/21/23 11/15/23 Rx Lax) #90 tabs fluoxetine 40 mg capsule 40 mg PO DAILY #90 caps 10/27/23 11/15/23 Rx nitrofurantoin 100 mg PO BID 7 days #14 caps 11/12/23 11/15/23 Rx monohydrate/macrocrystals 100 mg capsule (Macrobid) ondansetron 4 mg disintegrating 4 mg PO TID PRN nausea and 11/12/23 11/15/23 Rx tablet vomiting #30 tabs Allergies Allergy/AdvReac Type Severity Reaction Status Date / Time Sulfa (Sulfonamide Allergy Severe Rash, Verified 11/14/23 07:24 Antibiotics) itching sulfadiazine Allergy Mild RASH Verified 11/14/23 07:24 Review of Systems Review of Systems Narrative: All other systems reviewed with the patient and are negative unless otherwise stated. Exam Vital Signs (past 8 hours): - 11/14/23 09:16 11/14/23 09:30 11/14/23 10:00 Temperature 99.9 F H 100.0 F H Pulse Rate 99 H 104 H 99 H Respiratory Rate 24 31 H 24 Blood Pressure Pulse Oximetry 94 95 Oxygen Delivery Method Oxygen Flow Rate 11/14/23 10:30 11/14/23 11:00 11/14/23 11:30 Temperature 99.9 F H Pulse Rate 99 H 100 H 99 H Respiratory Rate 31 H 24 41 H Blood Pressure Pulse Oximetry 93 94 81 L Oxygen Delivery Method Oxygen Flow Rate 11/14/23 12:00 11/14/23 12:30 11/14/23 13:10 Temperature 99.7 F H 99.7 F H Pulse Rate 101 H 97 H Respiratory Rate 23 23 Blood Pressure Pulse Oximetry 95 Oxygen Delivery Method Nasal Cannula Oxygen Flow Rate 11/14/23 13:10 11/14/23 15:05 11/14/23 15:07 Temperature 99.4 F 97.7 F Pulse Rate 102 H 118 H 115 H Respiratory Rate 21 14 14 Blood Pressure 141/42 H 98/49 L 118/45 L Pulse Oximetry 94 99 99 Oxygen Delivery Method Nasal Cannula Simple Mask Simple Mask Oxygen Flow Rate 3 8 6 11/14/23 15:10 11/14/23 15:19 11/14/23 15:29 Temperature Pulse Rate 105 H 117 H 107 H Respiratory Rate 14 16 15 Blood Pressure 109/31 L 117/53 L 115/36 L Pulse Oximetry 99 99 100 Oxygen Delivery Method Simple Mask Simple Mask Simple Mask Oxygen Flow Rate 6 6 6 11/14/23 15:31 11/14/23 15:38 11/14/23 15:42 Temperature Pulse Rate 105 H 105 H 108 H Respiratory Rate 17 14 17 Blood Pressure 100/34 L 111/39 L 114/39 L Pulse Oximetry 100 100 100 Oxygen Delivery Method Simple Mask Simple Mask Simple Mask Oxygen Flow Rate 6 6 6 11/14/23 15:51 Temperature Pulse Rate 116 H Respiratory Rate 18 Blood Pressure 110/44 L Pulse Oximetry 100 Oxygen Delivery Method Simple Mask Oxygen Flow Rate 6 Oxygen Delivery Method Simple Mask Oxygen Flow Rate 6 Narrative Exam Narrative: GEN: appears in pain, obese HEENT: moist mucous membranes, PERRL NECK: trachea midline, no JVD CV: regular rate and rhythm, no murmurs PULM: clear bilaterally ABD: soft, RUQ tenderness, nondistended, no organomegaly EXT: warm and well perfused with no edema NEURO: awake, alert, A/Ox3 but just delayed, no focal deficits Objective Labs 11/15/23 04:36 11/15/23 04:36 Labs: Laboratory Results - last 24 hr 11/14/23 11/14/23 11/14/23 07:00 07:25 07:42 WBC 42.9 H* 43.2 H* RBC 5.04 4.85 Hgb 15.2 14.7 Hct 45.7 43.9 MCV 90.8 90.7 MCH 30.2 30.3 MCHC 33.2 33.5 RDW 14.9 H 15.0 H Plt Count 250 234 Neut % (Auto) Not Reportable 87.0 H Lymph % (Auto) Not Reportable 1.9 L [place] % (Auto) Not Reportable 11.0 Eos % (Auto) Not Reportable 0.0 L Baso % (Auto) Not Reportable 0.1 Neut # (Auto) 03880 H Lymph # (Auto) Not Reportable 800 L Fisher # (Auto) Not Reportable 4800 H Eos # (Auto) 0 Baso # (Auto) Not Reportable 0 Total Counted 100 Seg Neutrophils % 81.0 H Band Neutrophils % 5.0 Lymphocytes % (Manual) 2.0 L Monocytes % (Manual) 12.0 H Neutrophils # (Manual) 58835 H RBC Morphology Normal morphology PT 13.9 H INR 1.2 APTT 30 Sodium 134 L Potassium 4.0 Chloride 99 Carbon Dioxide 28 BUN 16 Creatinine 0.65 Estimated GFR > 60 BUN/Creatinine Ratio 24.6 H Glucose 133 H Lactate 1.7 Calcium 9.8 Total Bilirubin 1.8 H AST 37 H ALT 28 Alkaline Phosphatase 91 Total Creatine Kinase 33 Troponin I < 0.012 NT-Pro-B Natriuret Pep 2900 H Total Protein 7.2 Albumin 3.9 Globulin 3.3 Albumin/Globulin Ratio 1.2 Lipase < 10 L D Procalcitonin 0.85 H Urine Color Urine Appearance Urine pH Ur Specific [place] Urine Protein Urine Glucose (UA) Urine Ketones Urine Occult Blood Urine Nitrate Urine Bilirubin Ur Bilirubin Confirm Urine Urobilinogen Ur Leukocyte Esterase Urine RBC Urine WBC Ur Squamous Epith Cells Urine Bacteria Ur Culture Indicated? Vol Urine Centrifuged Chlamy pneumoniae PCR Not detected Adenovirus (PCR) Not detected B.parapertussis DNA PCR Not detected Coronavirus OC43 (PCR) Not detected Coronavirus HKU1 (PCR) Not detected Coronavirus 229E (PCR) Not detected SARS-CoV-2 (PCR) Not detected Coronavirus NL63 (PCR) Not detected Human Metapneumovir PCR Not detected Influenza Type A (PCR) Not detected Influenza Type B (PCR) Not detected M. pneumoniae (PCR) Not detected Parainfluenza 1 (PCR) Not detected Parainfluenza 2 (PCR) Not detected Parainfluenza 3 (PCR) Not detected Parainfluenza 4 (PCR) Not detected RSV (PCR) Not detected Entero/Rhino (PCR) Not detected 11/14/23 08:06 WBC RBC Hgb Hct MCV MCH MCHC RDW Plt Count Neut % (Auto) Lymph % (Auto) [place] % (Auto) Eos % (Auto) Baso % (Auto) Neut # (Auto) Lymph # (Auto) Fisher # (Auto) Eos # (Auto) Baso # (Auto) Total Counted Seg Neutrophils % Band Neutrophils % Lymphocytes % (Manual) Monocytes % (Manual) Neutrophils # (Manual) RBC Morphology PT INR APTT Sodium Potassium Chloride Carbon Dioxide BUN Creatinine Estimated GFR BUN/Creatinine Ratio Glucose Lactate Calcium Total Bilirubin AST ALT Alkaline Phosphatase Total Creatine Kinase Troponin I NT-Pro-B Natriuret Pep Total Protein Albumin Globulin Albumin/Globulin Ratio Lipase Procalcitonin Urine Color Red Urine Appearance Cloudy Urine pH 6.5 Ur Specific [place] 1.025 Urine Protein 3+ H Urine Glucose (UA) Negative Urine Ketones Trace H Urine Occult Blood 3+ H Urine Nitrate Positive H Urine Bilirubin 2+ H Ur Bilirubin Confirm Positive H Urine Urobilinogen 1.0 Ur Leukocyte Esterase 2+ H Urine RBC >100/hpf H Urine WBC 5-10/hpf H Ur Squamous Epith Cells None seen D Urine Bacteria Few (2-10) H Ur Culture Indicated? Specimen cultured Vol Urine Centrifuged 3 Chlamy pneumoniae PCR Adenovirus (PCR) B.parapertussis DNA PCR Coronavirus OC43 (PCR) Coronavirus HKU1 (PCR) Coronavirus 229E (PCR) SARS-CoV-2 (PCR) Coronavirus NL63 (PCR) Human Metapneumovir PCR Influenza Type A (PCR) Influenza Type B (PCR) M. pneumoniae (PCR) Parainfluenza 1 (PCR) Parainfluenza 2 (PCR) Parainfluenza 3 (PCR) Parainfluenza 4 (PCR) RSV (PCR) Entero/Rhino (PCR) Assessment & Plan Assessment & Plan narrative: # sepsis 2/2 acute cholecystitis -US shows pericholecystic fluid, thickened gallbladder wall and positive Alvarez's sign -Dr. Otero consulted, will take for lap marian -continue zosyn # acute hypoxic resp failure 2/2 possible PNA -imaging shows bilateral upper lobe infiltrates -continue abx as above -wean O2 as able # UTI -UA with pyuria -abx -has mcmahon # depression -continue prozac and seroquel # MS -wheelchair bound Code status is full code. DVT prophylaxis with SCDs. Proxy is sister Shaina who is DPOA. I have reviewed home meds and used all available resources to reconcile the home meds. Case discussed with ED physician/APC and patient will be admitted to the hospitalist service for further workup and management. This patient will be admitted as inpatient and will require greater than 2 midnights of hospital time to treat sepsis, acute cholecystitis.
--- NOTE | 2023-11-14 16:00 | SUR.PHASEI ---
Patient to CT Scan with PACU nurse on oxygen and cardiac monitoring to r/o PE. Bedside report to be given to receiving nurse after imaging.
[2023-11-14 18:32] LABS: MRSA (Nasal) PCR NOT DETECTED (Not Detect)
[2023-11-14] MEDS: TRAZODONE 50 MG TABLET PO (22:01)
[2023-11-15] MEDS: SODIUM CHLORIDE 0.9% 1,000 ML 100 ML IV (03:55)
[2023-11-15] MEDS: PIPERACILLIN/TAZO 3.375 GM in SODIUM CHLORIDE 0.9% 100 ML IV ×3 (04:08→21:01)
[2023-11-15 05:00] VITALS: BP 120/54; PULSE 80; RESP 20; TEMP 37.2; O2SAT 93
[2023-11-15 05:05] LABS: Add Manual Diff / Slide Review NO; Basophils Absolute Auto 0 /uL (0-100); Basophils Percent Auto 0.2 % (0-2); Eosinophils Absolute Auto 0 /uL (0-450); Hematocrit 33.8 % (36-46); Hemoglobin 11.2 g/dL (12.0-16.0); Lymphocytes Absolute Auto 700 /uL (1100-4500); Lymphocytes Percent Auto 3.3 % (25-40); Mean Corpuscular HGB Conc 33.2 % (30-36); Mean Corpuscular Hemoglobin 30.3 PG (26-34); Mean Corpuscular Volume 91.4 fL (80-100); Monocytes Absolute Auto 1400 /uL (0-900); Monocytes Percent Auto 7.1 % (3-14); Neutrophils Absolute Auto 18000 /uL (1500-7000); Neutrophils Percent Auto 89.4 % (50-75); Platelet Count 177 X10^3/uL (150-400); White Blood Cell Count 20.1 X10^3/uL (4.5-11.0)
[2023-11-15 05:29] LABS: Alanine Aminotransferase 45 IU/L (<35); Albumin 2.6 g/dL (3.5-5.0); Alkaline Phosphatase 89 U/L (38-126); Aspartate Aminotransferase 41 IU/L (14-36); BUN Creatinine Ratio 16.7 (6-22); Bilirubin Total 0.9 mg/dL (0.2-1.3); Blood Urea Nitrogen 12 mg/dL (7-17); Calcium 8.2 mg/dL (8.4-10.2); Carbon Dioxide 26 mmol/L (22-32); Chloride 114 mmol/L (98-107); Estimated Glomerular Filt Rate > 60 mL/min (>60); Globulin 2.6 g/dL (1.7-4.1); Glucose 106 mg/dL (80-110); HEMOLYSIS < 15 (0-50); Potassium 3.7 mmol/L (3.4-5.1); Sodium 139 mmol/L (137-145); Total Protein 5.2 g/dL (6.3-8.2)
--- NOTE | 2023-11-15 06:43 | PC.NURSE ---
Dental Equipment Mechanic Note-Patient is mostly A/Ox4, forgetful, delayed speech. Denies pain. VSS. SpO2 >92% on 2L NC. Lap drsg to abdomen CDI, BAO drain compressed with serous-sang fluid, drsg at site reenforced. Urine is Grade III hematuria.
[2023-11-15 07:56] VITALS: BP 118/57; PULSE 85; RESP 16; TEMP 36.6; O2SAT 93
--- NOTE | 2023-11-15 08:04 | DI.RAD.S_ITS ---
PROCEDURE: XR CHEST 1V INDICATIONS: hypoxia TECHNIQUE: One view of the chest was acquired. COMPARISON: [facility], CT, CT ANGIO CHEST PE PROTOCOL, 11/14/2023, 16:00. [facility], CR, XR CHEST 1V, 11/14/2023, 7:33. [facility], CR, XR CHEST 1V, 11/10/2023, 12:21. FINDINGS: Surgical changes and devices: None. Lungs and pleura: Chronic elevation of the right hemidiaphragm with right basilar atelectasis. Probable prominent epicardial fat pad along the left chest wall. Subtle bilateral upper lobe patchy opacities do not appear significantly changed. Mediastinum: Cardiac silhouette is enlarged. Bones and chest wall: No suspicious bony lesions. Overlying soft tissues appear unremarkable. IMPRESSION: Patchy upper lobe opacities do not appear significantly changed when compared to the CT from the day prior. Chronic elevation of the right hemidiaphragm. Approved by: Bill Núñez M.D. on 11/15/2023 at 8:50
[2023-11-15] MEDS: QUETIAPINE 25 MG TABLET PO (08:39)
[2023-11-15] MEDS: FLUoxetine 20 MG CAPSULE 40 MG PO (08:39)
[2023-11-15] MEDS: buPROPion XL 150 MG TAB PO (08:39)
[2023-11-15 11:00] VITALS: BP 122/96; PULSE 91; RESP 20; TEMP 36.6; O2SAT 93
--- NOTE | 2023-11-15 11:21 | PM.PN.1 ---
Subjective Subjective Date Patient Seen: 11/15/23 Time Patient Seen: 11:21 Interval history: Labs are improved. Exam Vital Signs (past 8 hours): - 11/15/23 05:00 11/15/23 07:00 11/15/23 07:56 Temperature 99.0 F 97.8 F Pulse Rate 80 85 Respiratory Rate 20 16 Blood Pressure 120/54 L 118/57 L Pulse Oximetry 93 93 Oxygen Delivery Method Nasal Cannula Oxygen Flow Rate 2 2 Fraction of Inspired Oxygen 28 SaO2/FiO2 Ratio 346 Oxygen Delivery Method Nasal Cannula Oxygen Flow Rate 2 Narrative Exam Narrative: Sleeping peacefully GI Palpation: soft Other: Drain output is mostly serous Objective Labs 11/15/23 04:36 11/15/23 04:36 Labs: Laboratory Results - last 24 hr 11/14/23 11/15/23 16:50 04:36 WBC 20.1 H D RBC 3.70 L Hgb 11.2 L Hct 33.8 L MCV 91.4 MCH 30.3 MCHC 33.2 RDW 15.0 H Plt Count 177 Neut % (Auto) 89.4 H Lymph % (Auto) 3.3 L [place] % (Auto) 7.1 Eos % (Auto) 0.0 L Baso % (Auto) 0.2 Neut # (Auto) 62223 H Lymph # (Auto) 700 L Martin # (Auto) 1400 H Eos # (Auto) 0 Baso # (Auto) 0 Sodium 139 Potassium 3.7 Chloride 114 H Carbon Dioxide 26 BUN 12 Creatinine 0.72 Estimated GFR > 60 BUN/Creatinine Ratio 16.7 Glucose 106 Calcium 8.2 L Total Bilirubin 0.9 AST 41 H ALT 45 H Alkaline Phosphatase 89 Total Protein 5.2 L Albumin 2.6 L Globulin 2.6 Albumin/Globulin Ratio 1.0 Procalcitonin 2.20 H Nasal Screen MRSA (PCR) Not detected [facility] Medical History Muscular deconditioning Vitamin B deficiency Hyperlipidemia (Unknown) 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
--- NOTE | 2023-11-15 14:36 | CM.DANOTE ---
Patient is a 68 yo female who was admitted Inpt Status on 11/14/23 for Abd Pain. Pt has [facility] for insurance and her PCP is Dr. Vasiliy Rubio. EMR was reviewed. Per MD, pt admitted with acute cholecystitis and was taken by Surgeon to OR for Lap Suzan and making progress and will advance diet today to full liquids. Not yet medically stable to discharge. SW met bedside with pt and explained role and pt confirms that she still lives at [facility] for the past couple years due to her baseline MS dx. Pt mostly w/c bound at baseline and uses a hoier at [facility] and full care with assist for toileting and showers as well. Pt confirms that her sister Shaina lives locally and remains her DPOA and visits regularly. Pt states she is starting to feel a little better and unsure if she will need HH at discharge but has hx of [facility] and will wait until her sister visits today to discuss if she needs HH or not at d/c. Pt has hx of SNF at [facility] last year in Jul 2022 for IV-Abx. Pt states her preference is to d/c back to [facility] at discharge and is hopeful to avoid SNF if possible. PT ordered and pending although pt full care at baseline. Plan: SW to follow closely in the AM Thursday to contact [facility] RN to discuss pt's likely return in the next 1-2 days pending progress and advancing diet. FANNY Blanco Discharge Planning/Care Management CM Discharge Assessment Start: 11/15/23 14:09 Freq: Status: Active Protocol: Document 11/15/23 14:10 BF (Rec: 11/15/23 14:36 BF [id number]) Discharge Planning Assessment Assigned Deputy Director FANNY Singh DPOA/Assigned Designee Name sister Merritt Contact Information [phone] Advance Directives? Yes: POLST Advance Directives on File Yes History Provided By Patient,Medical Record Has Patient been admitted in last 30 No days? Prior Living Arrangements Assisted Living Comment [facility] Household Members none Type of transporation used prior to Relies on Others admit Facility Name Admitted From: [facility] Willing to Return to Facility? Yes Independent with ADL's No Is patient alert and oriented? Yes Needs Assistance With Bathing,Meal Prep,Toileting, Managing Medications,Home Chores / Shopping Caregiver for Another No DME Already Rented / Owned Wheelchair Comment Hoier lift for transfers Patient/Family Preference Home with Home Health Comment Likely return to [facility] with HH Barriers to Discharge No Discharge Plan Assisted Living Facility Transportation Arrangement Nat Referrals Initiated None needed Additional Comment r/o possible HH Whiteboard Updated in Patient Room with Yes name and ext. # of Deputy Director Review Status In Process Please Provide Date Initial DC 11/15/23 Assessment Was Performed Next Review Type Continued Stay Review
[2023-11-15 15:00] VITALS: BP 104/52; PULSE 91; RESP 20; TEMP 36.6; O2SAT 90
--- NOTE | 2023-11-15 15:36 | PT-IP ANOTE ---
Pt discussed in rounds. DO put in PT order today and reported eval may be initiated next date. Will con't PT efforts.
[2023-11-15] MEDS: ACETAMINOPHEN 325 MG TABLET 650 MG PO ×2 (15:48→21:16)
--- NOTE | 2023-11-15 18:08 | PC.NURSE ---
pt c/o of right sided jaw discomfort that is better with tylenol, noted right neck soft tissue swelling skin intact with no bruising or trauma to area noted. Dr. Magy navarro.
--- NOTE | 2023-11-15 19:41 | PM.PN.1 ---
Subjective Subjective Interval history: Patient doing well post-op. Now on 2L NC. Notes an ongoing cough. RUQ pain improving. Exam Vital Signs (past 8 hours): - 11/15/23 15:00 Temperature 97.9 F Pulse Rate 91 H Respiratory Rate 20 Blood Pressure 104/52 L Pulse Oximetry 90 L Oxygen Flow Rate 2 Fraction of Inspired Oxygen 28 SaO2/FiO2 Ratio 346 Oxygen Delivery Method Nasal Cannula Oxygen Flow Rate 2 Narrative Exam Narrative: GEN: NAD, obese HEENT: moist mucous membranes, PERRL NECK: trachea midline, no JVD CV: regular rate and rhythm, no murmurs PULM: clear bilaterally ABD: soft, drain present, nondistended, no organomegaly EXT: warm and well perfused with no edema NEURO: awake, alert, A/Ox3 but just delayed, no focal deficits Objective Labs 11/15/23 04:36 11/15/23 04:36 Labs: Laboratory Results - last 24 hr 11/15/23 04:36 WBC 20.1 H D RBC 3.70 L Hgb 11.2 L Hct 33.8 L MCV 91.4 MCH 30.3 MCHC 33.2 RDW 15.0 H Plt Count 177 Neut % (Auto) 89.4 H Lymph % (Auto) 3.3 L [place] % (Auto) 7.1 Eos % (Auto) 0.0 L Baso % (Auto) 0.2 Neut # (Auto) 37583 H Lymph # (Auto) 700 L [place] # (Auto) 1400 H Eos # (Auto) 0 Baso # (Auto) 0 Sodium 139 Potassium 3.7 Chloride 114 H Carbon Dioxide 26 BUN 12 Creatinine 0.72 Estimated GFR > 60 BUN/Creatinine Ratio 16.7 Glucose 106 Calcium 8.2 L Total Bilirubin 0.9 AST 41 H ALT 45 H Alkaline Phosphatase 89 Total Protein 5.2 L Albumin 2.6 L Globulin 2.6 Albumin/Globulin Ratio 1.0 Procalcitonin 2.20 H [facility] Medical History Muscular deconditioning Vitamin B deficiency Hyperlipidemia (Unknown) 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 Otero consulted, s/p lap marian on 11/13 -continue zosyn -drain in place, to be removed likely on 11/15 -gen surg ok to advance diet # acute hypoxic resp failure 2/2 possible PNA -imaging shows bilateral upper lobe infiltrates -continue abx as above -wean O2 as able # UTI -UA with pyuria -abx -has mcmahon # depression -continue prozac and seroquel # MS -wheelchair bound Code status is full code. DVT prophylaxis with SCDs. Proxy is sister Shaina who is DPOA. Dispo: Home to [facility] likely in 2 days. Quality VTE Deep Vein Thrombosis/Pulmonary Embolism Present on Admission: No
[2023-11-15 20:00] VITALS: BP 110/47; PULSE 96; RESP 20; TEMP 36.7; O2SAT 91
[2023-11-15] MEDS: TRAZODONE 50 MG TABLET 25 MG PO (22:00)
[2023-11-15 23:00] VITALS: BP 109/47; PULSE 83; RESP 18; TEMP 37.2; O2SAT 91
[2023-11-16] VITALS (10 sets, daily range): BP systolic 104–130; BP diastolic 43–59; PULSE 74–101; RESP 16–20; TEMP 36–36.5; O2SAT 92–95
--- NOTE | 2023-11-16 02:04 | DI.RAD.S_ITS ---
PROCEDURE: XR CHEST 1V INDICATIONS: PNA TECHNIQUE: One view of the chest was acquired. COMPARISON: [facility], CT, CT ANGIO CHEST PE PROTOCOL, 11/14/2023, 16:00. [facility], CR, XR CHEST 1V, 11/15/2023, 8:12. [facility], CR, XR CHEST 1V, 11/14/2023, 7:33. FINDINGS: Surgical changes and devices: Catheter at the right upper quadrant. Lungs and pleura: Scattered opacity in both lungs. Mildly increased at the right upper lobe and left perihilar. No significant pleural effusions or pneumothorax. Mediastinum: Mediastinal contours appear unchanged. Asymmetric elevation of the right hemidiaphragm. Heart size appears prominent. Bones and chest wall: No suspicious bony lesions. Overlying soft tissues appear unremarkable. IMPRESSION: Scattered airspace opacities bilaterally. These are increased in the right upper lobe and left perihilar regions. No significant discrepancy with the overnight preliminary interpretation. Dictated by: Hernan Parham M.D. on 11/16/2023 at 7:44 Approved by: Hernan Parham M.D. on 11/16/2023 at 7:51
[2023-11-16] MEDS: FUROSEMIDE 40 MG/4 ML VIAL IV (02:25)
[2023-11-16 02:36] LABS: Add Manual Diff / Slide Review NO; Basophils Absolute Auto 0 /uL (0-100); Basophils Percent Auto 0.2 % (0-2); Eosinophils Absolute Auto 0 /uL (0-450); Eosinophils Percent Auto 0.1 % (2-4); Hemoglobin 11.2 g/dL (12.0-16.0); Lymphocytes Absolute Auto 1200 /uL (1100-4500); Lymphocytes Percent Auto 7.4 % (25-40); Mean Corpuscular HGB Conc 32.8 % (30-36); Mean Corpuscular Hemoglobin 30.1 PG (26-34); Mean Corpuscular Volume 91.5 fL (80-100); Monocytes Absolute Auto 1600 /uL (0-900); Monocytes Percent Auto 9.3 % (3-14); Neutrophils Absolute Auto 14000 /uL (1500-7000); Platelet Count 198 X10^3/uL (150-400); Red Blood Cell Count 3.72 X10^6/uL (4.0-5.2); Red Cell Distribution Width 15.6 % (11.6-14.8); White Blood Cell Count 16.9 X10^3/uL (4.5-11.0)
--- NOTE | 2023-11-16 02:53 | PC.NURSE ---
Addendum entered by Sabiha Gee R.N. 11/16/23 06:35: Provided patient with IS, educated on how to use. Exhibits poor breath-holding ability, <500ml volume per breath. Educated patient on deep breathing & coughing. Addendum entered by Sabiha Gee R.N. 11/16/23 06:03: Gerber output: 2L, light pink urine. Lungs sound clearer. O2 saturation between 91-94% on 13L NC. Patient is awake & alert, denies SOB. 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 O2 saturation 91-92% on 5L NC at start of shift, gradually needing more O2 requirement to stay above 92%. Fine crackles heard upon auscultation. Patient is awake and alert, denies SOB/difficulty breathing or pain, does not appear to be in distress. RT at bedside to assess, placed patient on 13L humidified O2 with larger nasal cannula. Gerber is draining dark red urine. Notified MD Kohler of findings, new orders placed. CXR completed. IV lasix given. Labs drawn. Plan of care ongoing.
[2023-11-16 02:57] LABS: INR 1.1 (0.9-1.3); Prothrombin Time 12.4 SECONDS (9.4-12.5)
[2023-11-16 02:59] LABS: Alanine Aminotransferase 41 IU/L (<35); Albumin 2.6 g/dL (3.5-5.0); Alkaline Phosphatase 88 U/L (38-126); Aspartate Aminotransferase 46 IU/L (14-36); BUN Creatinine Ratio 21.8 (6-22); Bilirubin Total 0.9 mg/dL (0.2-1.3); Blood Urea Nitrogen 17 mg/dL (7-17); Carbon Dioxide 26 mmol/L (22-32); Chloride 116 mmol/L (98-107); Estimated Glomerular Filt Rate > 60 mL/min (>60); Globulin 2.7 g/dL (1.7-4.1); Glucose 96 mg/dL (80-110); HEMOLYSIS < 15 (0-50); PTT Partial Thromboplastin Tim 29 SECONDS (25.1-36.5); Potassium 3.4 mmol/L (3.4-5.1); Sodium 142 mmol/L (137-145); Total Protein 5.3 g/dL (6.3-8.2)
[2023-11-16 03:08] LABS: NT-proBNP (BNP-Adult 18+) 2750 pg/mL (<125)
[2023-11-16 03:16] LABS: Procalcitonin 1.73 ng/mL (<0.5)
[2023-11-16] MEDS: PIPERACILLIN/TAZO 3.375 GM in SODIUM CHLORIDE 0.9% 100 ML IV ×3 (03:25→19:57)
[2023-11-16 05:25] LABS: Creatine Kinase 28 U/L (30-135)
--- NOTE | 2023-11-16 07:53 | P.PN_ITS ---
Subjective Subjective Interval history: She is doing well. No real abdominal pain. She denies cough or shortness a breath. She does have a Mcmahon in place. She is being treated for possible pneumonia and urinary tract infection. Urine culture is pending. She did have a cholecystectomy and her BAO drain is still in place. There is concern for confusion yesterday. Her axmfpme-mj-fby is here today and states that she seems to be at her baseline. Exam Vital Signs (past 8 hours): - 11/16/23 01:54 11/16/23 02:59 11/16/23 03:27 Temperature 97.3 F L Pulse Rate 79 83 74 Respiratory Rate 18 20 16 Blood Pressure 125/50 L 130/59 L Pulse Oximetry 92 93 92 Oxygen Delivery Method High Flow Nasal Cannula [place] Nasal Cannula Oxygen Flow Rate 13 13 13 11/16/23 05:07 11/16/23 06:21 Temperature 97.7 F Pulse Rate 84 Respiratory Rate 17 Blood Pressure 121/55 L Pulse Oximetry 93 93 Oxygen Delivery Method Nasal Cannula High Flow Nasal Cannula [place] Nasal Cannula Oxygen Flow Rate 13 13 Fraction of Inspired Oxygen 28 SaO2/FiO2 Ratio 346 Oxygen Delivery Method Nasal Cannula,High Flow Nasal Cannula,[place] Nasal Cannula Oxygen Flow Rate 13 Narrative Exam Narrative: NAD, alert and oriented. Fluent speech. Lungs are clear, normal rate and effort. Heart is regular, no murmur gallop or rub. Abdomen is soft, non distended. She is mild tenderness at the laparoscopic insertion sites. She was a BAO drain in place. Extremities are free of edema. Objective Labs 11/16/23 02:25 11/16/23 02:25 Labs: Laboratory Results - last 24 hr 11/16/23 02:25 WBC 16.9 H RBC 3.72 L Hgb 11.2 L Hct 34.0 L MCV 91.5 MCH 30.1 MCHC 32.8 RDW 15.6 H Plt Count 198 Neut % (Auto) 83.0 H Lymph % (Auto) 7.4 L [place] % (Auto) 9.3 Eos % (Auto) 0.1 L Baso % (Auto) 0.2 Neut # (Auto) 90034 H Lymph # (Auto) 1200 [place] # (Auto) 1600 H Eos # (Auto) 0 Baso # (Auto) 0 PT 12.4 INR 1.1 APTT 29 Sodium 142 Potassium 3.4 Chloride 116 H Carbon Dioxide 26 BUN 17 Creatinine 0.78 Estimated GFR > 60 BUN/Creatinine Ratio 21.8 Glucose 96 Calcium 8.0 L Total Bilirubin 0.9 AST 46 H ALT 41 H Alkaline Phosphatase 88 Total Creatine Kinase 28 L NT-Pro-B Natriuret Pep 2750 H Total Protein 5.3 L Albumin 2.6 L Globulin 2.7 Albumin/Globulin Ratio 1.0 Procalcitonin 1.73 H PFSH Medical History Muscular deconditioning Vitamin B deficiency Hyperlipidemia (Unknown) 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 -US shows pericholecystic fluid, thickened gallbladder wall and positive Alvarez's sign -Dr. Otero consulted, s/p lap marian on 11/13 -continue Zosyn, awaiting urine culture and also covering for possible pneumonia. -drain in place, to be removed likely on 11/15 -ok to advance diet # acute hypoxic resp failure 2/2 possible PNA, new and improving. -imaging shows bilateral upper lobe infiltrates -continue abx as above -wean O2 as able # UTI, present on admission and improving. -UA with pyuria, urine culture is pending. -abx -has mcmahon # depression, stable. -continue prozac and seroquel # MS, stable. -wheelchair bound Code status is full code. DVT prophylaxis with SCDs. Proxy is sister Shaina who is DPOA. She will likely return home to her assisted living facility if she continues to progress within the next 1-2 days. Anticipate estimated date of discharge of November 17. Quality VTE Deep Vein Thrombosis/Pulmonary Embolism Present on Admission: No
[2023-11-16] MEDS: POTASSIUM CHLORIDE 20 MEQ TAB 40 MEQ PO (08:09)
[2023-11-16] MEDS: FLUoxetine 20 MG CAPSULE 40 MG PO (08:09)
[2023-11-16] MEDS: QUETIAPINE 25 MG TABLET PO (08:09)
--- NOTE | 2023-11-16 09:36 | PT.IIE ---
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 She states, I don't know the answer to that when PT asks her where she lives, if she was getting up to the w/c, how she was getting up to the w/c and if she could feed herself at baseline. Mobility and Gait PT calls [facility] and staff states that pt required STS lift to get to w/c and recliner and that she slept in recliner and did not often agree to getting up to her w/c . They state that she can feed herself once set-up and that she is dependent for all other ADLs/self-care including dressing and bathing. Activities of Daily Living and IADL's See above Social History Household Members none Living Arrangements Assisted Living Number of Floors (Floors) One Floor Number of Stairs To Enter/Railing? Accessible living at [facility] Home Equipment Manual Wheelchair Employment Status Retired Additional Social History Comment Staff assistance for all ADLs, pt slept in recliner and spent most of her time in recliner, STS for transfers, accessible BR M2 PT-IP Current Condition Start: 11/15/23 15:36 Freq: NEEDED Status: Active Protocol: Document 11/16/23 08:45 MB (Rec: 11/16/23 09:35 MB [id number]) Physical Therapy Current Condition Current Condition Evaluation Date 11/16/23 Treatment Diagnosis Abdominal pain and underwent cholecystectomy 11/14/23 M3 PT-IP Subjective Start: 11/15/23 15:36 Freq: NEEDED Status: Active Protocol: Document 11/16/23 08:45 MB (Rec: 11/16/23 09:35 MB [id number]) Subjective Physical Therapy Visit Type Type Initial Evaluation Visit Start Time 08:45 Visit Stop Time 09:06 Number of RUBBER LINER Visits 0 Physical Therapy Visit Comments Patient Comments Pt is hypoverbal and has trouble answering all questions and states she needs help to eat. Therapy Pain Assessment Pain When Pain Assessed During Mobility Pain Present Pain Present Pain Reported Location Across abdomen Intensity 4 Scale Used Nathan (Faces) M4 PT-IP Mobility and Gait Start: 11/15/23 15:36 Freq: NEEDED Status: Active Protocol: Document 11/16/23 08:45 MB (Rec: 11/16/23 09:35 MB [id number]) PT-Bed Mobility Assessment Supine to Sit Supine to Sit Total Assistance,1 Person Assistance,Head of Bed Elevated,Bedrails Sit to Supine Sit to Supine Total Assistance,1 Person Assistance,Bedrails Scooting Scooting to Edge of Bed Dependent Scooting Up and Down in Bed Dependent PT-Transfer Assessment Comments Mobility Comments PT attempts to educate pt in log roll technique but pt has little understanding, command- following and core strength and is unable to perform log rolling. She requires dependent assistance to get up to EOB and she has poor sitting balance statically and dynamically. PT blocks pt's legs with PT's legs so that pt can sit better upright and she requires B UE support, PT assist blocking legs and mod A to maintain static sitting. Pt is on 12 L O2 and her O2 sats are in the mid 90s at rest and drop to the mid 80s with bed mobility. She demonstrates mouth breathing. PT-Balance Assessment Sitting Balance and Reactions Static Sitting Balance Ability Poor Dynamic Sitting Balance Ability Poor M5 PT-IP Objective Assessments Start: 11/15/23 15:36 Freq: NEEDED Status: Active Protocol: Document 11/16/23 08:45 MB (Rec: 11/16/23 09:35 MB [id number]) Orientation Orientation/Cognition Level of Alertness Confusional State Orientation Name,Birthday Safety Awareness Decreased Safety Awareness Memory Description Short Term Impaired,Commission Clerk Impaired Comments Pt is only A&O to name and with PT Gross Range of Motion Upper Extremity ROM Assessment Bilaterally Impaired Lower Extremity ROM Assessment Bilaterally Impaired Impairments B ankle PF tension and ankles rest in inversion and PF and tightness with attempted passive ROM Strength Upper Extremity Strength Assessment Bilaterally Impaired Lower Extremity Strength Assessment Bilaterally Impaired Comments Strength Comments Profound weakness in legs with pt unable to resist any motion from PT in either leg today Coordination Assessment Gross Coordination Gross Coordination Impaired Assessment Coordination Comments Poor use of limbs with bed mobility M6 PT-IP Treatment Start: 11/15/23 15:36 Freq: NEEDED Status: Active Protocol: Document 11/16/23 08:45 MB (Rec: 11/16/23 09:35 MB [id number]) Physical Therapy Treatment Education Education Provided Safety M7 PT-IP Assessment and Plan Start: 11/15/23 15:36 Freq: NEEDED Status: Active Protocol: Document 11/16/23 08:45 MB (Rec: 11/16/23 09:35 MB [id number]) PT Summary Assessment and Plan Potential Rehabilitation Potential Fair Status of Condition at Evaluation Evolving Summary Impairments Pain,ROM,Strength,Balance, Coordination,Tone,Cognition, Bed Mobility,Transfers,Gait, Activity Tolerance Progress Towards Goals Slow Progress due to Activity Tolerance Assessment Summary Pt is a 68 y/o female with history of MS now s/p cholecystectomy. At baseline, she has sedentary lifestyle requiring STS lift for recliner to w/c transfers and dependent assistance for ADLs per [facility] staff. Today, pt presents with confusion and she is only A&O to herself and she cannot provide any PLOF history including where she lives. Pt presents with globalized weakness in all four limbs, core and spine and she requires dependent assistance for bed mobility and heavy assistance for static sitting EOB. Pt is somewhat fearful with mobility and has low participation. Goals Transfer Goal Moderate Assistance,Slide Board Other Goals Pt does not sleep in a bed at baseline and so no bed mobility goal. Similar, pt does not ambulate at baseline. Pt will maintain static and dynamic sitting balance for at least 10' for exercise and other balance activities with no more than CGA to improve core strength and balance. Days to Meet Goals 5 Frequency of Treatment Frequency Of Treatment Once a Day Treatment Plan Physical Therapy Treatment Plan Bed Mobility Training,Transfer Training,Therapeutic Exercise ,Balance Retraining,Post Op Education,Discharge Planning, Hot or Cold Pack,Neuromuscular Re-ed,Coordination Retraining ,Manual Therapy Precautions Abdominal Surgery Precautions Log Roll,Lifting Restrictions, Gait Belt above Incisional Area Weight Bearing Status Weight Bearing Status Weight Bear as Tolerated Recommendations To Nursing Amount of Assist Needed Mechanical Lift Discharge Recommendations PT Discharge Recommendations Home vs SNF Transportation Needs at Discharge Wheelchair/Cabulance,Stretcher /Ambulance
[2023-11-16] MEDS: ACETAMINOPHEN 325 MG TABLET 650 MG PO (11:52)
--- NOTE | 2023-11-16 11:56 | CM.DPC ---
Addendum entered by FANNY Blanco 11/16/23 14:57: ADD: Return call from Brittany at [facility] stating she feels pt needs to go to SNF at d/c before return to [facility] as pt was admitted to [facility] two weeks ago and now admitted to [facility] and feels she is high risk for readmission. SUN called [facility] and updated that Nat wanting SNF first and Alfreda at [facility] confirms they could accept if [facility]'s SNF and pt would need to be down to 4-5LO2 before they could accept. PASRR done but needs MD signature and then be faxed to PASRR coordinator Evelyn naidu for review. SUN faxed [place] [facility] to review for SNF auth to [facility] and left ms for [facility] requesting review. BF Original Note: DCP SNF vs [facility] Per MD, pt still on 13LO2 and not yet medically stable to discharge but likely in 1-2 days. Per PT, SNF vs return to [facility] pending pt's progress and [facility] review if they can meet her needs as pt total assist besides feeding at baseline. SUN faxed Brittany RN at [facility] pt's clinicals to review to determine if they can accept pt back at d/c once oxygen needs reduced. Pt also has hx at [facility] and aware of the chance SNF might be needed again and SUN made [facility] referral for review in case [facility] feels SNF needed prior to return to get back to baseline. Plan: SW to follow closely for [facility] and [facility] review to determine return to [facility] vs [facility] SNF at discharge. No PASRR done yet at this time, awaiting decision from [facility] first. FANNY Blanco
--- NOTE | 2023-11-16 12:57 | PM.PN.1 ---
Subjective Subjective Date Patient Seen: 11/16/23 Time Patient Seen: 12:57 Interval history: No new problems. Tolerating a diet Exam Vital Signs (past 8 hours): - 11/16/23 05:07 11/16/23 06:21 11/16/23 08:00 Temperature 97.7 F 97.2 F L Pulse Rate 84 94 H Respiratory Rate 17 18 Blood Pressure 121/55 L 126/43 L Pulse Oximetry 93 93 92 Oxygen Delivery Method Nasal Cannula High Flow Nasal Cannula [place] Nasal Cannula Oxygen Flow Rate 13 13 13 11/16/23 12:47 Temperature Pulse Rate Respiratory Rate Blood Pressure Pulse Oximetry 92 Oxygen Delivery Method Simple Mask Oxygen Flow Rate 6 Fraction of Inspired Oxygen 28 SaO2/FiO2 Ratio 346 Oxygen Delivery Method Simple Mask Oxygen Flow Rate 6 Const General: No acute distress Other: Drain output looks slightly more bilious Objective Labs 11/16/23 02:25 11/16/23 02:25 Labs: Laboratory Results - last 24 hr 11/16/23 02:25 WBC 16.9 H RBC 3.72 L Hgb 11.2 L Hct 34.0 L MCV 91.5 MCH 30.1 MCHC 32.8 RDW 15.6 H Plt Count 198 Neut % (Auto) 83.0 H Lymph % (Auto) 7.4 L [place] % (Auto) 9.3 Eos % (Auto) 0.1 L Baso % (Auto) 0.2 Neut # (Auto) 28490 H Lymph # (Auto) 1200 [place] # (Auto) 1600 H Eos # (Auto) 0 Baso # (Auto) 0 PT 12.4 INR 1.1 APTT 29 Sodium 142 Potassium 3.4 Chloride 116 H Carbon Dioxide 26 BUN 17 Creatinine 0.78 Estimated GFR > 60 BUN/Creatinine Ratio 21.8 Glucose 96 Calcium 8.0 L Total Bilirubin 0.9 AST 46 H ALT 41 H Alkaline Phosphatase 88 Total Creatine Kinase 28 L NT-Pro-B Natriuret Pep 2750 H Total Protein 5.3 L Albumin 2.6 L Globulin 2.7 Albumin/Globulin Ratio 1.0 Procalcitonin 1.73 H PFSH Medical History Muscular deconditioning Vitamin B deficiency Hyperlipidemia (Unknown) 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
--- NOTE | 2023-11-16 13:30 | DI.ECHO.S_ITS ---
[place] [facility]+ [facility] : : [id number] : [place] : : [id number] : : Phone: [phone] Echocardiogram Report + + :Name: AMY WILCOX Study Date: 11/17/2023 Height: 64 in : :Hospital ReadingLocation: Weight: 185 lb : : Gender: Female BSA: 1.9 m2 : :: 1955 Age: 68 yrs BP: 126/43 mmHg: :Reason For Study: DYSPNEA : :Ordering Physician: SHASHA, : :TESSA Bhatia Performed By: Radha Franklin : :Referring: TESSA PULLIAM : + + Interpretation Summary The left ventricle is normal in size and wall thickness. The ejection fraction is estimated to be 60-65%. There are no focal wall motion abnormalities. Diastolic parameters suggest probable normal left ventricular diastolic function and normal filling pressures. The right ventricle is normal in size and function. Right ventricular systolic pressure is estimated to be 26 mmHg plus the clinically estimated CVP which cannot be estimated on this exam. The left atrial size is normal. There is no significant valvular heart disease. The aortic root is normal size. Procedure: A two-dimensional transthoracic echocardiogram with color flow and Doppler was performed. A contrast injection of Definity was performed to improve assessment of LV function. There is no prior echocardiogram noted for this patient. The study quality was technically difficult. The heart rate ranged between 94-101 bpm during the study. Left Ventricle: The left ventricle is normal in size and wall thickness. The ejection fraction is estimated to be 60-65%. There are no focal wall motion abnormalities. Diastolic parameters suggest probable normal left ventricular diastolic function and normal filling pressures. Right Ventricle: The right ventricle is normal in size and function. Atria: The left atrial size is normal. Right atrial size is normal. There is no Doppler evidence for an interatrial shunt. Mitral Valve: The mitral valve is normal in structure and function. There is mild mitral regurgitation. Aortic Valve: The aortic valve is trileaflet. The aortic valve opens well. There is no aortic valve stenosis. No aortic regurgitation is present. Tricuspid Valve: The tricuspid valve is normal in structure and function. There is mild tricuspid regurgitation. Right ventricular systolic pressure is estimated to be 26 mmHg plus the clinically estimated CVP which cannot be estimated on this exam. Pulmonic Valve: The pulmonic valve leaflets are thin and pliable; valve motion is normal. There is mild pulmonic regurgitation. There is no significant valvular heart disease. Great Vessels: The aortic root is normal size. The dimensions of the ascending aorta are normal. The inferior vena cava was not well visualized. Pericardium/ Pleura There is no pericardial effusion. There is no pleural effusion. MMode/2D Measurements & Calculations LVIDd: 5.3 cm LVOT diam: 2.0 cm LVIDs: 3.5 cm Ao root diam: 3.2 cm FS: 32.8 % asc Aorta Diam: 3.4 cm IVSd: 0.95 cm Ao Arch Diam (Prox Trans): 3.3 cm LVPWd: 0.72 cm LV keating. diameter/BSA (cm/m^2): 2.8 LV sys. diameter/BSA (cm/m^2): 1.9 LA A2 area: 17.9 cm2 RA long axis: 4.9 cm LA A4 area: 18.3 cm2 RA area: 13.0 cm2 LA length (vol): 5.0 cm RA vol: 29.4 ml LA vol: 55.4 ml RA : 15.5 ml/m2 LA vol index: 29.3 ml/m2 RVD1 (basal): 3.7 cm RVD2 (mid): 3.6 cm TAPSE: 1.7 cm Doppler Measurements & Calculations Ao V2 max: 112.7 cm/sec LVOT Max Xander: 96.8 cm/sec Ao V2 mean: 78.1 cm/sec LV V1 max P.7 mmHg Ao max P.1 mmHg LV V1 VTI: 19.8 cm Ao mean P.7 mmHg YAMILET(I,D): 2.8 cm2 Ao V2 VTI: 22.3 cm YAMILET(V,D): 2.7 cm2 sev ratio: 0.89 YAMILET indexed to BSA (cm^2/m^2): 1.5 MV E max xander: 98.2 cm/sec TR max xander: 255.8 cm/sec MV A max xander: 79.3 cm/sec TR max P.2 mmHg MV E/A: 1.2 PA V2 max: 87.2 cm/sec Med Peak E' Xander: 7.4 cm/sec PA V2 mean: 60.4 cm/sec E/E' med: 13.2 PA mean P.6 mmHg Lat Peak E' Xander: 9.8 cm/sec PA pr(Accel): 41.7 mmHg E/E' lat: 10.0 E/e' average: 11.6 MV dec time: 0.18 sec SV(LVOT): 63.2 ml Reading Physician:01:01 PM
[2023-11-16] MEDS: SODIUM CHLORIDE 0.9% FLUSH 10 ML IV (19:57)
[2023-11-16] MEDS: TRAZODONE 50 MG TABLET 25 MG PO (21:24)
[2023-11-17] VITALS (24 sets, daily range): BP systolic 102–136; BP diastolic 45–74; PULSE 73–106; RESP 14–38; TEMP 36.3–37.1; O2SAT 87–99
[2023-11-17] MEDS: SODIUM CHLORIDE 0.9% FLUSH 10 ML IV ×5 (03:21→20:55)
[2023-11-17] MEDS: SODIUM CHLORIDE 0.9% 250 ML 21 ML IV (03:21)
[2023-11-17] MEDS: PIPERACILLIN/TAZO 3.375 GM in SODIUM CHLORIDE 0.9% 100 ML IV ×3 (03:35→20:00)
--- NOTE | 2023-11-17 06:53 | PC.NURSE ---
Pt. declined to have blood drawn this morning. tired of being poked all the time. Will report today RN.
[2023-11-17] MEDS: QUETIAPINE 25 MG TABLET PO (08:34)
[2023-11-17] MEDS: FLUoxetine 20 MG CAPSULE 40 MG PO (08:34)
--- NOTE | 2023-11-17 10:30 | PT.IPTN ---
Current Diagnoses Acute cholecystitis (11/14/23) Surgery Performed Operation Date: 11/14/23 13:45 Actual Procedures p Laparoscopic Cholecystectomy - Rashaun Otero MD Physical Therapy Treatment Note M2 PT-IP Current Condition Start: 11/15/23 15:36 Freq: NEEDED Status: Active Protocol: Document 11/16/23 08:45 MB (Rec: 11/16/23 09:35 MB [id number]) Physical Therapy Current Condition Current Condition Evaluation Date 11/16/23 Treatment Diagnosis Abdominal pain and underwent cholecystectomy 11/14/23 M3 PT-IP Subjective Start: 11/15/23 15:36 Freq: NEEDED Status: Active Protocol: Document 11/17/23 10:30 AB (Rec: 11/17/23 12:03 AB [id number]) Subjective Physical Therapy Visit Type Type Treatment Note Visit Start Time 10:30 Visit Stop Time 11:15 Number of MASTER COASTWISE YACHT Visits 0 Physical Therapy Visit Comments Patient Comments agreeable to get up M4 PT-IP Mobility and Gait Start: 11/15/23 15:36 Freq: NEEDED Status: Active Protocol: Document 11/17/23 10:30 AB (Rec: 11/17/23 12:03 AB [id number]) PT-Bed Mobility Assessment Supine to Sit Supine to Sit Maximum Assistance,2 Person Assistance,Head of Bed Elevated,Bedrails PT-Transfer Assessment Equipment Transfer Assistive Device Mechanical Lift Transfers Transfer Destination Chair Transfer Technique Mechanical Lift Transfer Ability Level of Assist Total Assistance,2 Person Assistance Comments Mobility Comments pt supine in bed and agreeable to do PT. pt resides at [facility] and has been using a sit<>stand machine for transfers with 2 person assist . Assessed pt's mobility if pt will still be appropriate for continued use of sit to stand machine. pt completed supine to sit max A x 1-2 and max cues log roll bed mobility. HOB elevated to ~ 20 deg. pt used bed rail. pt able to sit on EOB CGA to min A with LOB x 1 posteriorly during mobility needing max A and cues. Pt completed transfers using sit to stand machine with total A x 2. pt able to stand and tolerated standing with use of sit to stand machine ~ 2 min. NAC assisted pt with brief change while standing on sit < >stand machine and then transfer to chair. positioned pt on the chair. call light and table placed within reach. M5 PT-IP Objective Assessments Start: 11/15/23 15:36 Freq: NEEDED Status: Active Protocol: Document 11/16/23 08:45 MB (Rec: 11/16/23 09:35 MB [id number]) Orientation Orientation/Cognition Level of Alertness Confusional State Orientation Name,Birthday Safety Awareness Decreased Safety Awareness Memory Description Short Term Impaired,Wire Bender Impaired Comments Pt is only A&O to name and with PT Gross Range of Motion Upper Extremity ROM Assessment Bilaterally Impaired Lower Extremity ROM Assessment Bilaterally Impaired Impairments B ankle PF tension and ankles rest in inversion and PF and tightness with attempted passive ROM Strength Upper Extremity Strength Assessment Bilaterally Impaired Lower Extremity Strength Assessment Bilaterally Impaired Comments Strength Comments Profound weakness in legs with pt unable to resist any motion from PT in either leg today Coordination Assessment Gross Coordination Gross Coordination Impaired Assessment Coordination Comments Poor use of limbs with bed mobility M6 PT-IP Treatment Start: 11/15/23 15:36 Freq: NEEDED Status: Active Protocol: Document 11/17/23 10:30 AB (Rec: 11/17/23 12:03 AB [id number]) Physical Therapy Treatment Education Education Provided Safety M7 PT-IP Assessment and Plan Start: 11/15/23 15:36 Freq: NEEDED Status: Active Protocol: Document 11/17/23 10:30 AB (Rec: 11/17/23 12:03 AB [id number]) PT Summary Assessment and Plan Potential Rehabilitation Potential Fair Summary Impairments Pain,ROM,Strength,Balance, Coordination,Sensation,Tone, Cognition,Bed Mobility, Transfers,Gait,Activity Tolerance Assessment Summary Pt is a 68 y/o F with dx MS and currently admitted due to c/o abdominal pain found found to have acute cholecystitis. Pt underwent ex-lap procedure 11/14/23. pt is a resident of [facility] and was requiring 2 person assist with bed mobility and transfers with sit to stand machine. pt is w/c bound. Assessed pt's mobility and pt still appropriate for continued use of sit to stand machine for transfers and is at prior level of function. No further PT intervention indicated at this time. pt may go back to [facility] when medically stable. Frequency of Treatment Frequency Of Treatment Discharge Precautions Abdominal Surgery Precautions Log Roll,Lifting Restrictions, Gait Belt above Incisional Area Recommendations To Nursing Amount of Assist Needed Power Sit-Stand Discharge Recommendations PT Discharge Recommendations Home with 02/02 Assist Available Transportation Needs at Discharge Wheelchair/Cabulance
[2023-11-17] MEDS: FUROSEMIDE 20 MG/2 ML VIAL IV ×2 (12:09→20:54)
--- NOTE | 2023-11-17 13:04 | PM.PN.1 ---
Subjective Subjective Date Patient Seen: 11/17/23 Time Patient Seen: 13:04 Interval history: Sabiha states she feels about the same as yesterday. Although there was minimal bile drainage reported overnight the BAO drain contents still appears slightly bilious. Exam Vital Signs (past 8 hours): - 11/17/23 05:36 11/17/23 08:48 11/17/23 11:05 Temperature 97.3 F L 98.7 F Pulse Rate 99 H 89 Respiratory Rate 19 20 Blood Pressure 120/45 L 121/45 L Pulse Oximetry 93 91 92 Oxygen Delivery Method Oximask Oxygen Flow Rate 10 10 13 Fraction of Inspired Oxygen 72 11/17/23 11:46 Temperature 97.4 F L Pulse Rate 101 H Respiratory Rate 22 Blood Pressure 117/52 L Pulse Oximetry 88 L Oxygen Delivery Method Oxygen Flow Rate 12 Fraction of Inspired Oxygen Fraction of Inspired Oxygen 72 SaO2/FiO2 Ratio 127 Oxygen Delivery Method Oximask Oxygen Flow Rate 12 Narrative Exam Narrative: Drain contents appear slightly bilious Objective Labs 11/16/23 02:25 11/16/23 02:25 PFSH Medical History Muscular deconditioning Vitamin B deficiency Hyperlipidemia (Unknown) 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
--- NOTE | 2023-11-17 13:48 | P.PN_ITS ---
Subjective Subjective Date Patient Seen: 11/17/23 Time Patient Seen: 13:04 Interval history: Back on high amounts of O2 today. Some cough, no shortness of breath or chest pain, abdominal pain is okay. Not much appetite but tolerating the food she does eat. Still some bilious appearing liquid in BAO. Exam Vital Signs (past 8 hours): - 11/17/23 08:48 11/17/23 11:05 11/17/23 11:46 Temperature 98.7 F 97.4 F L Pulse Rate 89 101 H Respiratory Rate 20 22 Blood Pressure 121/45 L 117/52 L Pulse Oximetry 91 92 88 L Oxygen Delivery Method Oximask Oxygen Flow Rate 10 13 12 Fraction of Inspired Oxygen 72 Fraction of Inspired Oxygen 72 SaO2/FiO2 Ratio 127 Oxygen Delivery Method Oximask Oxygen Flow Rate 12 Narrative Exam Narrative: NAD, alert and oriented. Fluent speech. Lungs are clear, normal rate and effort. Heart is regular, no murmur gallop or rub. Abdomen is soft, non distended. She is mild tenderness at the laparoscopic insertion sites. BAO with slightly bilious mixed with serosanguinous fluid. Extremities are free of edema. 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 -US shows pericholecystic fluid, thickened gallbladder wall and positive Alvarez's sign -Dr. Otero consulted, s/p lap marian on 11/13 -continue Zosyn, awaiting urine culture and also covering for possible pneumonia. -drain in place, bilious in appearance still, ordered for HIDA scan, may not be able to tolerate due to shortness of breath. -diet per surgery # acute hypoxic resp failure 2/2 possible PNA or diastolic heart failure -imaging shows bilateral upper lobe infiltrates -continue abx as above -wean O2 as able -ordered LAYOUT FORMER eval, continue zosyn for bacterial PNA -will try to diurese slightly, TTE is unremarkable with normal EF. Continue 20 mg IV BID. # UTI, present on admission and improving. -UA with pyuria, urine culture is pending. -abx -has mcmahon # depression, stable. -continue prozac and seroquel # MS, stable. -wheelchair bound Code status is full code. DVT prophylaxis with SCDs. Proxy is sister Shaina who is DPOA. Quality VTE Deep Vein Thrombosis/Pulmonary Embolism Present on Admission: No
--- NOTE | 2023-11-17 14:09 | CM.DPC ---
DCP Cont. Reviewed EMR and team rounds for status updates. Pt is back up to 12LO2. The plan is for her to continue to receive IV ABO's, cont. breathing treatments. Potential plan for SNF rehab post-discharge, however, it will depend on medical needs, as she is wheelchair bound at baseline. [employer] will continue to monitor and assist with final d/c recommendations.
--- NOTE | 2023-11-17 14:47 | SLP.IPNOTE ---
air saw operator attempted to intiate swallow eval @14:30. Pt was being transferred from chair to bed via sit to stand, O2 saturation low (into the 60's) during transfer and began leveling out after transfer completed with high flow nasal cannula in place. Pt very fatigued after transfer, not ideal for swallow evaluation at this time. Consulted with physician, will re-attempt in AM.
--- NOTE | 2023-11-17 15:09 | DI.RAD.S_ITS ---
PROCEDURE: XR CHEST 1V INDICATIONS: hypoxia TECHNIQUE: One view of the chest was acquired. COMPARISON: [facility], CR, XR CHEST 1V, 11/16/2023, 2:06. FINDINGS: Surgical changes and devices: None. Lungs and pleura: Diffuse interstitial prominence. Vascular congestion with loss of vascular distinctness. Patchy airspace opacities of the bilateral hemithoraces. No pneumothorax. No substantial pleural effusion. Mediastinum: Mediastinal contours appear stable. Heart size is stable. Bones and chest wall: No suspicious bony lesions. Overlying soft tissues appear unremarkable. IMPRESSION: Diffuse interstitial prominence and loss of vascular distinctness more pronounced compared to the prior study. This may be related to decreased lung volumes. Diffuse airspace opacities of the bilateral hemithoraces are not significantly changed. Findings may represent worsening pulmonary edema, although infectious or inflammatory process not excluded. Dictated by: Naveen Martins M.D. on 11/17/2023 at 16:08 Approved by: Naveen Martins M.D. on 11/17/2023 at 16:10
[2023-11-17] MEDS: FUROSEMIDE 40 MG/4 ML VIAL IV (15:24)
[2023-11-17] MEDS: ONDANSETRON 4 MG/2 ML INJ IV (15:48)
--- NOTE | 2023-11-17 16:23 | P.TELICUCN_ITS ---
History of Present Illness Consult details IF CAMERA ACTIVATED, patient seen via real-time interactive audiovisual communication: Camera activated Chief complaint: abd pain Consent obtained for tele-corporate financial analyst care: Yes Patient Location: ICU Provider location (State): [place] Other participants/roles: Bedside RN, RT Narrative: The encounter was completed by 2-way audio visual interaction. This is a 68 years old female with history of multiple sclerosis, wheelchair- bound, frequent UTIs, depression, hyperlipidemia and obesity who initially presented to ED on 11/14/2023 with acute RUQ pain, found to have acute cholecystitis, was evaluated by surgery and underwent laparoscopic cholecystectomy with percutaneous drain placement on 11/14/2023. She has been on antibiotic Zosyn empirically to cover for pneumonia and acute cholecystitis. Over the past couple of days, she developed worsening respiratory status with increasing need for supplemental O2 and currently on heated high flow at 100% FiO2. Therefore she was transferred to ICU for further management. Chest x-ray on 11/16/2023 showed scattered airspace opacities bilaterally with increased in the right upper lobe and left hilar infiltrates. CTA chest performed on 11/14/2023 showed no evidence of PE but demonstrated patchy bilateral infiltrates in both upper lobes and trace right sided pleural effusion. 2D echocardiogram on 12/03 showed LVEF 60 to 65% with no other abnormalities. Most recent labs reviewed and notable for mildly elevated AST 46, ALT 41, ALP 88, WBC 16.9, hemoglobin 11.2, proBNP elevated at 2750, albumin 2.6, procalcitonin 1.73 On my evaluation in the ICU via Camera -she is awake and alert but in mild to moderate respiratory distress, tachypneic with RR 30/min. She received Lasix total 60 mg IV in the past 2 hours with 600 cc urine output. She is currently very stable. 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) Frequent UTI (Unknown) Depression (Unknown) Multiple sclerosis (1971) Family History Sister Age: 63 Fibromyalgia Social History household members: none Smoking Status: Never smoker alcohol intake: current Current Medications Current Medications Medications: Home Medications VITAMIN D (Vitamin D3) 2,000 unit PO QDAY ##0 02/21/16 [History Confirmed 11/15/23] ibuprofen 200 mg tablet 400 mg PO Q4HP PRN Pain (Scale Score 4-6) ##0 02/21/16 [History Confirmed 11/15/23] cyanocobalamin (vitamin B-12) 1,000 mcg tablet,extended release 1,000 mcg PO QDAY #30 tabs 02/02/18 [Rx Confirmed 11/15/23] docusate calcium 240 mg capsule 240 mg PO DAILY 12/01/22 [History Confirmed 11/15/23] nystatin 100,000 unit/gram topical powder 1 applic topical BID PRN rash #30 grams 12/16/22 [Rx Confirmed 11/15/23] calcium carbonate 600 mg-vitamin D3 10 mcg (400 unit) tablet See Rx Instructions .Route .COMPLEX #90 tabs 01/02/23 [Rx Confirmed 11/15/23] quetiapine 25 mg tablet (Seroquel) 25 mg PO DAILY #30 tabs 07/29/23 [Rx Confirmed 11/15/23] trazodone 50 mg tablet 25 mg (1/2 x 50 mg) PO ONCE PM #45 tabs 09/18/23 [Rx Confirmed 11/15/23] polyethylene glycol 3350 17 gram/dose oral powder (Miralax) 17 g PO DAILY PRN constipation #238 grams 10/21/23 [Rx Confirmed 11/15/23] sennosides 8.6 mg tablet (Senna Lax) 8.6 mg PO DAILY PRN constipation #90 tabs 10/21/23 [Rx Confirmed 11/15/23] fluoxetine 40 mg capsule 40 mg PO DAILY #90 caps 10/27/23 [Rx Confirmed 11/15/23] nitrofurantoin monohydrate/macrocrystals 100 mg capsule (Macrobid) 100 mg PO BID 7 days #14 caps 11/12/23 [Rx Confirmed 11/15/23] ondansetron 4 mg disintegrating tablet 4 mg PO TID PRN nausea and vomiting #30 tabs 11/12/23 [Rx Confirmed 11/15/23] Visit Medications (administered) Generic Name Dose Route Start Last Admin Trade Name Freq PRN Reason Stop Dose Admin Acetaminophen 650 mg 11/14/23 17:25 11/16/23 11:52 Acetaminophen 325 Mg Tablet PO 650 mg Q6H PRN Administration Fever/Mild Pain (1-3) Fluoxetine HCl 40 mg 11/15/23 09:00 11/17/23 08:34 Fluoxetine 20 Mg Capsule PO 40 mg DAILY ISABELLA Administration Furosemide 20 mg 11/17/23 12:00 11/17/23 12:09 Furosemide 20 Mg/2 Ml Vial IV 20 mg BID ISABELLA Administration Piperacillin Sod/Tazobactam 100 mls @ 25 mls/hr 11/14/23 20:00 11/17/23 16:10 Sod 3.375 gm/ Sodium Chloride IV Infused Q8H ISABELLA Infusion Sodium Chloride 250 mls @ 21 mls/hr 11/16/23 23:15 11/17/23 03:21 Normal Saline 0.9% IV 21 mls/hr Q24H PRN Administration Flush Ondansetron HCl 4 mg 11/14/23 17:25 11/17/23 15:48 Ondansetron 4 Mg/2 Ml Inj IV 4 mg Q4HR PRN Administration Nausea And Vomiting Quetiapine Fumarate 25 mg 11/15/23 09:00 11/17/23 08:34 Quetiapine 25 Mg Tablet PO 25 mg DAILY ISABELLA Administration Sodium Chloride 10 ml 11/16/23 19:52 11/17/23 03:21 Sodium Chloride 0.9% Flush IV 10 ml PRN PRN Administration Flush Sodium Chloride 10 ml 11/16/23 21:00 11/17/23 08:34 Sodium Chloride 0.9% Flush IV 10 ml BID ISABELLA Administration Trazodone HCl 25 mg 11/15/23 21:00 11/16/23 21:24 Trazodone 50 Mg Tablet PO 25 mg BEDTIME ISABELLA Administration Exam Vital Signs (past 8 hours): - 11/17/23 08:48 11/17/23 11:05 11/17/23 11:46 Temperature 98.7 F 97.4 F L Pulse Rate 89 101 H Respiratory Rate 20 22 Blood Pressure 121/45 L 117/52 L Pulse Oximetry 91 92 88 L Oxygen Delivery Method Oximask Oxygen Flow Rate 10 13 12 Fraction of Inspired Oxygen 72 11/17/23 15:24 11/17/23 15:59 Temperature Pulse Rate 106 H 97 H Respiratory Rate 20 32 H Blood Pressure Pulse Oximetry 93 98 Oxygen Delivery Method Oxygen Flow Rate Fraction of Inspired Oxygen 100 Fraction of Inspired Oxygen 100 SaO2/FiO2 Ratio 127 Oxygen Delivery Method Oximask Oxygen Flow Rate 12 Narrative Exam Narrative: Awake, alert, on HFNC, in mild/mod resp distress, tachypneic, has bilateral symmetrical chest rise. Objective Labs 11/17/23 16:10 11/17/23 16:10 Assessment & Plan Assessment & Plan narrative: # Sepsis secondary to acute cholecystitis, Pneumonia and UTI: - Evaluated by surgery, now s/p lap marian with percutaneous drain placement on 11/14/2023. - Continue Zosyn pending cultures. Follow-up on blood cultures, sputum cultures, trend procalcitonin. - Monitor markers of tissue perfusion and lactic acid, urine output, mental status, base deficit. # Acute Hypoxic Respiratory failure / Bilateral upper lobe pneumonia - Most likely from worsening bilateral pneumonia - May have some component of pulmonary edema. - Reviewed 2D echocardiogram on 11/16/2023, LVEF 60 to 65% with no evidence of gastric dysfunction. - CT of chest on 11/14/2023 with no acute PE but bilateral upper lobe pneumonia and trace right pleural effusion. - Currently on HFNC, at 100% FiO2 and 50 L/min flow. May need to switch to BiPAP if continues to have increased work of breathing. - Very high risk for further deterioration and possible need for endotracheal intubation in the next few hours. - Follow-up with repeat chest x-ray and ABG in the next couple of hours. - Received 60 of Lasix IV since morning, total 600 200 cc urine output. Continue diuresis with goal to keep net neg 0.5 to 1 L daily fluid balance. - Continue empiric IV antibiotics Zosyn pending cultures. Screened negative for COVID-19, influenza A/B PCR and RSV on admission. # Multiple sclerosis, wheelchair-bound at baseline: -Continue supportive care. ICU Bundle: # FEN: Keep n.p.o. for now. # Glucose: fairly controlled. C/w Accu checks Q6 hours and SSI. BG goal 140-180 # Prophylaxis: SCDs for DVT prophylaxis, no strong indication for stress ulcer prophylaxis # Lines/tubes: PIV, Gerber # CODE STATUS: Full code # Disposition: Remains in ICU Above plan was discussed with rounding team including hospitalist, bedside RN, respiratory therapist, dietitian and pharmacist during tele-ICU multidisciplinary rounds this morning. We will continue to follow. Please call us if any additional questions.
[2023-11-17 16:25] LABS: Add Manual Diff / Slide Review NO; Basophils Absolute Auto 0 /uL (0-100); Basophils Percent Auto 0.2 % (0-2); Eosinophils Absolute Auto 0 /uL (0-450); Eosinophils Percent Auto 0.1 % (2-4); Hematocrit 38.9 % (36-46); Hemoglobin 12.8 g/dL (12.0-16.0); Lymphocytes Absolute Auto 900 /uL (1100-4500); Lymphocytes Percent Auto 5.1 % (25-40); Mean Corpuscular HGB Conc 32.8 % (30-36); Mean Corpuscular Hemoglobin 30.2 PG (26-34); Monocytes Absolute Auto 2600 /uL (0-900); Monocytes Percent Auto 14.3 % (3-14); Neutrophils Absolute Auto 14900 /uL (1500-7000); Neutrophils Percent Auto 80.3 % (50-75); Platelet Count 207 X10^3/uL (150-400); Red Blood Cell Count 4.22 X10^6/uL (4.0-5.2); Red Cell Distribution Width 15.5 % (11.6-14.8); White Blood Cell Count 18.5 X10^3/uL (4.5-11.0)
[2023-11-17 16:33] LABS: Alanine Aminotransferase 32 IU/L (<35); Albumin 3.6 g/dL (3.5-5.0); Albumin Globulin Ratio 1.1 (1.0-2.8); Alkaline Phosphatase 106 U/L (38-126); Aspartate Aminotransferase 24 IU/L (14-36); BUN Creatinine Ratio 16.7 (6-22); Bilirubin Total 1.2 mg/dL (0.2-1.3); Blood Urea Nitrogen 11 mg/dL (7-17); Calcium 8.3 mg/dL (8.4-10.2); Carbon Dioxide 31 mmol/L (22-32); Chloride 106 mmol/L (98-107); Estimated Glomerular Filt Rate > 60 mL/min (>60); Globulin 3.2 g/dL (1.7-4.1); Glucose 134 mg/dL (80-110); HEMOLYSIS 24 (0-50); Magnesium 1.9 mg/dL (1.6-2.3); Potassium 3.4 mmol/L (3.4-5.1); Sodium 140 mmol/L (137-145); Total Protein 6.8 g/dL (6.3-8.2)
[2023-11-17 16:38] LABS: PCO2 VBG 47.3 mmHg (45-50); PO2 VBG 21 mmHg (35-45); pH VBG 7.45 (7.33-7.43)
[2023-11-17 16:39] LABS: Fractionated Inspired Oxygen 100; HCO3 VBG 33 mmol/L (24-28); Oxygen Saturation VBG 36 % (70-75); Total CO2 VBG 34 mmol/L (24-29)
--- NOTE | 2023-11-17 17:19 | PC.NURSE ---
Transfer Note Patient transferred to room 230 from 219 at approx 1620. Transferred on 15L NRB, replaced on heated HFNC by RT in room at 50L and 100% FiO2. Pt initially drowsy but awakens to voice and able to answer questions, now awake and interacting with family in room, reports breathing is better. RR remains in the upper 20s to low 30s. SpO2 up to 94-95%. All belongings transferred with pt including glasses and wheelchair. Gerber catheter in place and draining clear pink urine, draining very well after Lasix - see I and Os. Call light within reach, bed alarm on. Tele-script girl on screen and pt reviewed.
[2023-11-17 17:47] LABS: HCO3 ABG 36 mmol/L (23-27); Oxygen Saturation ABG 89 % (95-100); PCO2 ABG 49.3 mmHg (35-45); PO2 ABG 55 mmHg (80-100); TCO2 ABG 37 mmol/L (23-27); pH ABG 7.47 (7.35-7.45)
[2023-11-17 17:48] LABS: Allen Test for ABG Passed? Yes, Passed; Blood Gas Collection Site Right Radial; Fractionated Inspired Oxygen 100
[2023-11-17] MEDS: HYDROMORPHONE 0.5 MG INJ IV (20:56)
[2023-11-17] MEDS: ALBUTEROL 2.5 MG/3 ML NEB (ADULT) INH (21:27)
[2023-11-18] VITALS (65 sets, daily range): BP systolic 93–130; BP diastolic 49–72; PULSE 74–105; RESP 16–49; TEMP 36.4–37.1; O2SAT 88–98
[2023-11-18] MEDS: PIPERACILLIN/TAZO 3.375 GM in SODIUM CHLORIDE 0.9% 100 ML IV ×3 (03:26→19:43)
[2023-11-18] MEDS: SODIUM CHLORIDE 0.9% FLUSH 10 ML IV ×2 (03:28→20:25)
[2023-11-18 04:59] LABS: Add Manual Diff / Slide Review NO; Basophils Absolute Auto 0 /uL (0-100); Basophils Percent Auto 0.1 % (0-2); Eosinophils Absolute Auto 0 /uL (0-450); Eosinophils Percent Auto 0.2 % (2-4); Hematocrit 34.3 % (36-46); Hemoglobin 11.4 g/dL (12.0-16.0); Lymphocytes Absolute Auto 1400 /uL (1100-4500); Lymphocytes Percent Auto 8.8 % (25-40); Mean Corpuscular HGB Conc 33.3 % (30-36); Mean Corpuscular Hemoglobin 30.4 PG (26-34); Mean Corpuscular Volume 91.3 fL (80-100); Monocytes Absolute Auto 2400 /uL (0-900); Monocytes Percent Auto 14.6 % (3-14); Neutrophils Absolute Auto 12600 /uL (1500-7000); Neutrophils Percent Auto 76.3 % (50-75); Platelet Count 215 X10^3/uL (150-400); Red Blood Cell Count 3.76 X10^6/uL (4.0-5.2); Red Cell Distribution Width 15.1 % (11.6-14.8); White Blood Cell Count 16.5 X10^3/uL (4.5-11.0)
[2023-11-18 05:16] LABS: Alanine Aminotransferase 26 IU/L (<35); Albumin 3.1 g/dL (3.5-5.0); Alkaline Phosphatase 92 U/L (38-126); Aspartate Aminotransferase 19 IU/L (14-36); BUN Creatinine Ratio 15.3 (6-22); Bilirubin Total 0.8 mg/dL (0.2-1.3); Blood Urea Nitrogen 13 mg/dL (7-17); Calcium 8.1 mg/dL (8.4-10.2); Carbon Dioxide 36 mmol/L (22-32); Chloride 102 mmol/L (98-107); Estimated Glomerular Filt Rate > 60 mL/min (>60); Globulin 3.1 g/dL (1.7-4.1); Glucose 114 mg/dL (80-110); HEMOLYSIS < 15 (0-50); Magnesium 2.1 mg/dL (1.6-2.3); Potassium 3.2 mmol/L (3.4-5.1); Sodium 141 mmol/L (137-145); Total Protein 6.2 g/dL (6.3-8.2)
[2023-11-18] MEDS: ALBUTEROL 2.5 MG/3 ML NEB (ADULT) INH ×3 (05:53→23:21)
[2023-11-18] MEDS: FUROSEMIDE 20 MG/2 ML VIAL IV ×2 (08:35→20:25)
--- NOTE | 2023-11-18 08:50 | P.PN_ITS ---
Subjective Subjective Date Patient Seen: 11/18/23 Time Patient Seen: 09:34 Interval history: Postoperative day 4 status post laparoscopic cholecystectomy for acute cholecystitis. Worsening respiratory status requiring high-flow O2 Abdominal pain bilious drainage Exam Vital Signs (past 8 hours): - 11/18/23 00:58 11/18/23 00:58 11/18/23 01:00 Temperature Pulse Rate 88 83 Respiratory Rate 31 H 37 H Blood Pressure 127/57 L Pulse Oximetry 95 96 Oxygen Delivery Method Oxygen Flow Rate Fraction of Inspired Oxygen 11/18/23 01:00 11/18/23 01:30 11/18/23 02:00 Temperature Pulse Rate 76 74 Respiratory Rate 28 H 19 Blood Pressure 116/55 L Pulse Oximetry 97 97 Oxygen Delivery Method Oxygen Flow Rate Fraction of Inspired Oxygen 11/18/23 02:00 11/18/23 02:30 11/18/23 03:00 Temperature Pulse Rate 87 75 Respiratory Rate 26 H 20 Blood Pressure 99/54 L Pulse Oximetry 97 98 Oxygen Delivery Method Oxygen Flow Rate Fraction of Inspired Oxygen 11/18/23 03:00 11/18/23 03:00 11/18/23 03:30 Temperature Pulse Rate 83 Respiratory Rate 29 H Blood Pressure 111/56 L Pulse Oximetry 98 97 Oxygen Delivery Method Oxygen Flow Rate 50 Fraction of Inspired Oxygen 100 11/18/23 03:34 11/18/23 04:00 11/18/23 04:00 Temperature Pulse Rate 86 Respiratory Rate 26 H Blood Pressure 114/55 L Pulse Oximetry 96 Oxygen Delivery Method Heated High Flow Humidification Oxygen Flow Rate Fraction of Inspired Oxygen 11/18/23 04:30 11/18/23 05:00 11/18/23 05:03 Temperature Pulse Rate 89 90 91 H Respiratory Rate 26 H 45 H 26 H Blood Pressure Pulse Oximetry 95 93 92 Oxygen Delivery Method Oxygen Flow Rate Fraction of Inspired Oxygen 11/18/23 05:03 11/18/23 05:22 11/18/23 05:30 Temperature 97.6 F Pulse Rate 86 Respiratory Rate 21 Blood Pressure 102/49 L Pulse Oximetry 93 Oxygen Delivery Method Oxygen Flow Rate Fraction of Inspired Oxygen 11/18/23 05:54 11/18/23 05:56 11/18/23 06:00 Temperature Pulse Rate 75 81 Respiratory Rate 16 30 H Blood Pressure Pulse Oximetry 94 95 Oxygen Delivery Method High Flow Nasal Cannula Heated High Flow Oxygen Flow Rate Fraction of Inspired Oxygen 11/18/23 06:00 11/18/23 06:30 11/18/23 06:30 Temperature Pulse Rate 92 H 93 H Respiratory Rate 21 22 Blood Pressure 116/55 L Pulse Oximetry 96 95 Oxygen Delivery Method Oxygen Flow Rate 50 Fraction of Inspired Oxygen 100 11/18/23 07:00 11/18/23 07:00 11/18/23 07:30 Temperature Pulse Rate 88 92 H Respiratory Rate 20 28 H Blood Pressure 116/57 L Pulse Oximetry 96 96 Oxygen Delivery Method Oxygen Flow Rate Fraction of Inspired Oxygen 11/18/23 08:31 Temperature Pulse Rate 97 H Respiratory Rate 28 H Blood Pressure 116/56 L Pulse Oximetry Oxygen Delivery Method Oxygen Flow Rate Fraction of Inspired Oxygen Fraction of Inspired Oxygen 100 SaO2/FiO2 Ratio 127 Oxygen Delivery Method High Flow Nasal Cannula,Heated High Flow Oxygen Flow Rate 50 Narrative Exam Narrative: General adult woman alert oriented Chest tachypnea Abdomen tender drain bilious Objective Labs 11/18/23 04:09 11/18/23 04:09 Labs: Laboratory Results - last 24 hr 11/17/23 11/17/23 11/17/23 16:10 16:17 17:37 WBC 18.5 H RBC 4.22 Hgb 12.8 Hct 38.9 MCV 92.0 MCH 30.2 MCHC 32.8 RDW 15.5 H Plt Count 207 Neut % (Auto) 80.3 H Lymph % (Auto) 5.1 L [place] % (Auto) 14.3 H Eos % (Auto) 0.1 L Baso % (Auto) 0.2 Neut # (Auto) 50711 H Lymph # (Auto) 900 L [place] # (Auto) 2600 H Eos # (Auto) 0 Baso # (Auto) 0 ABG Sample Site Right radial ABG pH 7.47 H ABG pCO2 49.3 H ABG pO2 55 L ABG HCO3 36 H ABG Total CO2 37 H ABG O2 Saturation 89 L ABG Base Excess 12.0 H VBG pH 7.45 H VBG pCO2 47.3 VBG pO2 21 L VBG HCO3 33 H VBG Total CO2 34 H VBG O2 Saturation 36 L VBG Base Excess 9.0 H FiO2 100 100 Sodium 140 Potassium 3.4 Chloride 106 Carbon Dioxide 31 BUN 11 Creatinine 0.66 Estimated GFR > 60 BUN/Creatinine Ratio 16.7 Glucose 134 H Calcium 8.3 L Magnesium 1.9 Total Bilirubin 1.2 AST 24 ALT 32 Alkaline Phosphatase 106 Total Protein 6.8 Albumin 3.6 Globulin 3.2 Albumin/Globulin Ratio 1.1 11/18/23 04:09 WBC 16.5 H RBC 3.76 L Hgb 11.4 L Hct 34.3 L MCV 91.3 MCH 30.4 MCHC 33.3 RDW 15.1 H Plt Count 215 Neut % (Auto) 76.3 H Lymph % (Auto) 8.8 L [place] % (Auto) 14.6 H Eos % (Auto) 0.2 L Baso % (Auto) 0.1 Neut # (Auto) 40653 H Lymph # (Auto) 1400 [place] # (Auto) 2400 H Eos # (Auto) 0 Baso # (Auto) 0 ABG Sample Site ABG pH ABG pCO2 ABG pO2 ABG HCO3 ABG Total CO2 ABG O2 Saturation ABG Base Excess VBG pH VBG pCO2 VBG pO2 VBG HCO3 VBG Total CO2 VBG O2 Saturation VBG Base Excess FiO2 Sodium 141 Potassium 3.2 L Chloride 102 Carbon Dioxide 36 H BUN 13 Creatinine 0.85 Estimated GFR > 60 BUN/Creatinine Ratio 15.3 Glucose 114 H Calcium 8.1 L Magnesium 2.1 Total Bilirubin 0.8 AST 19 ALT 26 Alkaline Phosphatase 92 Total Protein 6.2 L Albumin 3.1 L Globulin 3.1 Albumin/Globulin Ratio 1.0 [facility] Medical History Muscular deconditioning Vitamin B deficiency Hyperlipidemia (Unknown) 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 Operation was significant for a necrotic gallbladder cystic duct avulsed and was not closed. An intra-abdominal drain has been present for several days but she does not appear to be closing the known cystic duct leak. The subsequent biliary peritonitis is probably driving the pneumonia as result of respiratory insufficiency. ERCP with stent placement for occlusion of cystic duct is indicated and she will require transfer. Quality VTE Deep Vein Thrombosis/Pulmonary Embolism Present on Admission: No
[2023-11-18] MEDS: FLUoxetine 20 MG CAPSULE 40 MG PO (09:12)
[2023-11-18] MEDS: QUETIAPINE 25 MG TABLET PO (09:12)
--- NOTE | 2023-11-18 09:43 | PM.PN.EICU ---
Subjective Subjective IF CAMERA ACTIVATED, patient seen via real-time interactive audiovisual communication: Camera activated Consent obtained for tele-supervisor nuclear medicine care: Yes Patient Location: ICU Provider location (State): [place] Other participants/roles: RN, Interval history: 68-year-old woman s/p post laparoscopic cholecystectomy day 4 , complicated by respiratory failure, PNA & biliary peritonitis, surgery recommended to be transferred for ERCP with stent placement for occlusion of cystic duct A/P: # Sepsis secondary to acute cholecystitis, Pneumonia and biliary peritonitis: - Evaluated by surgery, now s/p lap marian with percutaneous drain placement on 11/14/2023. - Continue Zosyn - Pending to be transferred for ERCP with stent placement for occlusion of cystic duct # Acute Hypoxic Respiratory failure / Bilateral upper lobe pneumonia - Most likely from worsening bilateral pneumonia and biliry peritonitis - May have some component of pulmonary edema. - Reviewed 2D echocardiogram on 11/16/2023, LVEF 60 to 65% with no evidence of gastric dysfunction. - CT of chest on 11/14/2023 with no acute PE but bilateral upper lobe pneumonia and trace right pleural effusion. - Currently on HFNC, at 85 % FiO2 and 50 L/min flow. NAD/ no work of breathing - Extra dos e of 40 of Lasix IV. Continue diuresis with 2o mg bid, goal to keep net neg 0.5 to 1 L daily fluid balance. - Continue empiric IV antibiotics Zosyn. # Multiple sclerosis, wheelchair-bound at baseline: -Continue supportive care. ICU Bundle: # FEN: Keep n.p.o. for now. # Glucose: fairly controlled. C/w Accu checks Q6 hours and SSI. BG goal 140-180 # Prophylaxis: SCDs for DVT prophylaxis, no strong indication for stress ulcer prophylaxis # Lines/tubes: PIV, Gerber # CODE STATUS: Full code # Disposition: Remains in ICU CCT 30 min Current Medications Current Medications Medications: Home Medications VITAMIN D (Vitamin D3) 2,000 unit PO QDAY ##0 02/21/16 [History Confirmed 11/15/23] ibuprofen 200 mg tablet 400 mg PO Q4HP PRN Pain (Scale Score 4-6) ##0 02/21/16 [History Confirmed 11/15/23] cyanocobalamin (vitamin B-12) 1,000 mcg tablet,extended release 1,000 mcg PO QDAY #30 tabs 02/02/18 [Rx Confirmed 11/15/23] docusate calcium 240 mg capsule 240 mg PO DAILY 12/01/22 [History Confirmed 11/15/23] nystatin 100,000 unit/gram topical powder 1 applic topical BID PRN rash #30 grams 12/16/22 [Rx Confirmed 11/15/23] calcium carbonate 600 mg-vitamin D3 10 mcg (400 unit) tablet See Rx Instructions .Route .COMPLEX #90 tabs 01/02/23 [Rx Confirmed 11/15/23] quetiapine 25 mg tablet (Seroquel) 25 mg PO DAILY #30 tabs 07/29/23 [Rx Confirmed 11/15/23] trazodone 50 mg tablet 25 mg (1/2 x 50 mg) PO ONCE PM #45 tabs 09/18/23 [Rx Confirmed 11/15/23] polyethylene glycol 3350 17 gram/dose oral powder (Miralax) 17 g PO DAILY PRN constipation #238 grams 10/21/23 [Rx Confirmed 11/15/23] sennosides 8.6 mg tablet (Senna Lax) 8.6 mg PO DAILY PRN constipation #90 tabs 10/21/23 [Rx Confirmed 11/15/23] fluoxetine 40 mg capsule 40 mg PO DAILY #90 caps 10/27/23 [Rx Confirmed 11/15/23] nitrofurantoin monohydrate/macrocrystals 100 mg capsule (Macrobid) 100 mg PO BID 7 days #14 caps 11/12/23 [Rx Confirmed 11/15/23] ondansetron 4 mg disintegrating tablet 4 mg PO TID PRN nausea and vomiting #30 tabs 11/12/23 [Rx Confirmed 11/15/23] Visit Medications (administered) Generic Name Dose Route Start Last Admin Trade Name Freq PRN Reason Stop Dose Admin Acetaminophen 650 mg 11/14/23 17:25 11/16/23 11:52 Acetaminophen 325 Mg Tablet PO 650 mg Q6H PRN Administration Fever/Mild Pain (1-3) Albuterol 2.5 mg 11/17/23 23:00 11/18/23 05:53 Albuterol 2.5 Mg/3 Ml Neb (Adult) INH 2.5 mg [id number] ISABELLA Administration Fluoxetine HCl 40 mg 11/15/23 09:00 11/17/23 08:34 Fluoxetine 20 Mg Capsule PO 40 mg DAILY ISABELLA Administration Furosemide 20 mg 11/17/23 12:00 11/18/23 08:35 Furosemide 20 Mg/2 Ml Vial IV 20 mg BID ISABELLA Administration Hydromorphone HCl 0.5 mg 11/14/23 17:25 11/17/23 20:56 Hydromorphone 0.5 Mg Inj IV 0.25 mg Q4H PRN Administration Pain, Moderate (4-6) Piperacillin Sod/Tazobactam 100 mls @ 25 mls/hr 11/14/23 20:00 11/18/23 03:26 Sod 3.375 gm/ Sodium Chloride IV 25 mls/hr Q8H ISABELLA Administration Sodium Chloride 250 mls @ 21 mls/hr 11/16/23 23:15 11/17/23 03:21 Normal Saline 0.9% IV 21 mls/hr Q24H PRN Administration Flush Ondansetron HCl 4 mg 11/14/23 17:25 11/17/23 15:48 Ondansetron 4 Mg/2 Ml Inj IV 4 mg Q4HR PRN Administration Nausea And Vomiting Quetiapine Fumarate 25 mg 11/15/23 09:00 11/17/23 08:34 Quetiapine 25 Mg Tablet PO 25 mg DAILY ISABELLA Administration Sodium Chloride 10 ml 11/16/23 19:52 11/18/23 03:28 Sodium Chloride 0.9% Flush IV 10 ml PRN PRN Administration Flush Sodium Chloride 10 ml 11/16/23 21:00 11/18/23 08:35 Sodium Chloride 0.9% Flush IV Not Given BID [facility] Trazodone HCl 25 mg 11/15/23 21:00 11/17/23 20:55 Trazodone 50 Mg Tablet PO Not Given BEDTIME [facility] Objective Labs 11/18/23 04:09 11/18/23 04:09 Labs: Laboratory Results - last 24 hr 11/17/23 11/17/23 11/17/23 16:10 16:17 17:37 WBC 18.5 H RBC 4.22 Hgb 12.8 Hct 38.9 MCV 92.0 MCH 30.2 MCHC 32.8 RDW 15.5 H Plt Count 207 Neut % (Auto) 80.3 H Lymph % (Auto) 5.1 L [place] % (Auto) 14.3 H Eos % (Auto) 0.1 L Baso % (Auto) 0.2 Neut # (Auto) 64020 H Lymph # (Auto) 900 L [place] # (Auto) 2600 H Eos # (Auto) 0 Baso # (Auto) 0 ABG Sample Site Right radial ABG pH 7.47 H ABG pCO2 49.3 H ABG pO2 55 L ABG HCO3 36 H ABG Total CO2 37 H ABG O2 Saturation 89 L ABG Base Excess 12.0 H VBG pH 7.45 H VBG pCO2 47.3 VBG pO2 21 L VBG HCO3 33 H VBG Total CO2 34 H VBG O2 Saturation 36 L VBG Base Excess 9.0 H FiO2 100 100 Sodium 140 Potassium 3.4 Chloride 106 Carbon Dioxide 31 BUN 11 Creatinine 0.66 Estimated GFR > 60 BUN/Creatinine Ratio 16.7 Glucose 134 H Calcium 8.3 L Magnesium 1.9 Total Bilirubin 1.2 AST 24 ALT 32 Alkaline Phosphatase 106 Total Protein 6.8 Albumin 3.6 Globulin 3.2 Albumin/Globulin Ratio 1.1 11/18/23 04:09 WBC 16.5 H RBC 3.76 L Hgb 11.4 L Hct 34.3 L MCV 91.3 MCH 30.4 MCHC 33.3 RDW 15.1 H Plt Count 215 Neut % (Auto) 76.3 H Lymph % (Auto) 8.8 L [place] % (Auto) 14.6 H Eos % (Auto) 0.2 L Baso % (Auto) 0.1 Neut # (Auto) 87432 H Lymph # (Auto) 1400 [place] # (Auto) 2400 H Eos # (Auto) 0 Baso # (Auto) 0 ABG Sample Site ABG pH ABG pCO2 ABG pO2 ABG HCO3 ABG Total CO2 ABG O2 Saturation ABG Base Excess VBG pH VBG pCO2 VBG pO2 VBG HCO3 VBG Total CO2 VBG O2 Saturation VBG Base Excess FiO2 Sodium 141 Potassium 3.2 L Chloride 102 Carbon Dioxide 36 H BUN 13 Creatinine 0.85 Estimated GFR > 60 BUN/Creatinine Ratio 15.3 Glucose 114 H Calcium 8.1 L Magnesium 2.1 Total Bilirubin 0.8 AST 19 ALT 26 Alkaline Phosphatase 92 Total Protein 6.2 L Albumin 3.1 L Globulin 3.1 Albumin/Globulin Ratio 1.0 Exam Vital Signs (past 8 hours): - 11/18/23 02:00 11/18/23 02:00 11/18/23 02:30 Temperature Pulse Rate 74 87 Respiratory Rate 19 26 H Blood Pressure 99/54 L Pulse Oximetry 97 97 Oxygen Delivery Method Oxygen Flow Rate Fraction of Inspired Oxygen 11/18/23 03:00 11/18/23 03:00 11/18/23 03:00 Temperature Pulse Rate 75 Respiratory Rate 20 Blood Pressure 111/56 L Pulse Oximetry 98 98 Oxygen Delivery Method Oxygen Flow Rate 50 Fraction of Inspired Oxygen 100 11/18/23 03:30 11/18/23 03:34 11/18/23 04:00 Temperature Pulse Rate 83 Respiratory Rate 29 H Blood Pressure 114/55 L Pulse Oximetry 97 Oxygen Delivery Method Heated High Flow Humidification Oxygen Flow Rate Fraction of Inspired Oxygen 11/18/23 04:00 11/18/23 04:30 11/18/23 05:00 Temperature Pulse Rate 86 89 90 Respiratory Rate 26 H 26 H 45 H Blood Pressure Pulse Oximetry 96 95 93 Oxygen Delivery Method Oxygen Flow Rate Fraction of Inspired Oxygen 11/18/23 05:03 11/18/23 05:03 11/18/23 05:22 Temperature 97.6 F Pulse Rate 91 H Respiratory Rate 26 H Blood Pressure 102/49 L Pulse Oximetry 92 Oxygen Delivery Method Oxygen Flow Rate Fraction of Inspired Oxygen 11/18/23 05:30 11/18/23 05:54 11/18/23 05:56 Temperature Pulse Rate 86 75 Respiratory Rate 21 16 Blood Pressure Pulse Oximetry 93 94 Oxygen Delivery Method High Flow Nasal Cannula Heated High Flow Oxygen Flow Rate Fraction of Inspired Oxygen 11/18/23 06:00 11/18/23 06:00 11/18/23 06:30 Temperature Pulse Rate 81 92 H Respiratory Rate 30 H 21 Blood Pressure 116/55 L Pulse Oximetry 95 96 Oxygen Delivery Method Oxygen Flow Rate 50 Fraction of Inspired Oxygen 100 11/18/23 06:30 11/18/23 07:00 11/18/23 07:00 Temperature Pulse Rate 93 H 88 Respiratory Rate 22 20 Blood Pressure 116/57 L Pulse Oximetry 95 96 Oxygen Delivery Method Oxygen Flow Rate Fraction of Inspired Oxygen 11/18/23 07:30 11/18/23 08:31 Temperature Pulse Rate 92 H 97 H Respiratory Rate 28 H 28 H Blood Pressure 116/56 L Pulse Oximetry 96 Oxygen Delivery Method Oxygen Flow Rate Fraction of Inspired Oxygen Fraction of Inspired Oxygen 100 SaO2/FiO2 Ratio 127 Oxygen Delivery Method High Flow Nasal Cannula,Heated High Flow Oxygen Flow Rate 50 Quality TeleICU VTE Deep Vein Thrombosis/Pulmonary Embolism Present on Admission: No
--- NOTE | 2023-11-18 10:44 | ST.IPCSEOM ---
Visit Care Team Role Provider Type Jamar Johnson MD Other Providers Physician Specialty: Medical Address: Phone: Fax: Email: Antonella Trinidad MD Other Providers Physician Specialty: Medical Address: Phone: Fax: Email: Landon Farias MD Other Providers Physician Specialty: Medical Address: [address] [place], [address] Phone: Fax: Email: Jessica Hayes MD Other Providers Physician Specialty: Internal Medicine Address: Phone: Fax: Email: Gabo Zhao MD Other Providers Physician Specialty: Medical Address: Phone: Fax: Email: Rashaun Otero MD Other Providers Physician Specialty: General Surgery Address: [address] , [address], [place], [address] Email: [email or web address] Alejandra Urbano MD Other Providers Physician Specialty: Anesthesiology Internal Medicine Address: [address] [place], [address] Fax: Email: [email or web address] Stephanie Shankar MD Other Providers Physician Specialty: Internal Medicine Address: [address] [place], [address] Phone: Fax: Email: [email or web address] Lewis Carmona MD Other Providers Physician Specialty: Internal Medicine Address: Phone: Fax: Email: Denzel Berry MD Other Providers Physician Specialty: Medical Address: Phone: Fax: Email: Shekhar Qureshi MD Other Providers Physician Specialty: Internal Medicine Address: [address] [place], [address] Phone: Fax: Email: Ron Caceres MD Other Providers Physician Specialty: Medical Address: [address], [address] Phone: Fax: Email: Gabriela Conway MD Other Providers Physician Specialty: Medical Address: Phone: Fax: Email: Klaudia Craft Other Providers Physician Specialty: Medical Address: Phone: Fax: Email: Kathy Weathers MD Other Providers Physician Specialty: Internal Medicine Address: Phone: Fax: Email: Vasiliy Rubio DO Family Provider Physician Primary Care Provider Specialty: Family Practice Address: [address] [place] [address], [address], [place], [address] Email: [email or web address] Astrid Veliz DO Emergency Provider Physician Referring Provider Specialty: Emergency Medicine Address: [address] [place] [address], [address] Email: [email or web address] Nomi Bhatti DO Admit Provider Physician Attending Provider Specialty: Internal Medicine Address: [address] [place] [address], [address] Email: [email or web address] Current Diagnoses Acute cholecystitis (11/14/23) Past Medical History (Last Reviewed 11/16/23 @ 07:53 by Jone Mcleod MD) 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 Cedric James Reason for Referral PNA Setting Assessment Location Acute Care Visit Type Note Type Initial evaluation Next Note Type Next Note Type Treatment Note Patient Information Identification Type Name,Wristband History Per H&P: Sabiha Persaud is a 68yo F with PMH of wheelchair -bound due to progressive multiple sclerosis, frequent UTI's, depression, HLD, and obesity who presents with acute RUQ pain. Found to have acute cholecystitis. Patient is alert and oriented and tells me she has been having RUQ pain for a few days, and would want surgery to prevent from getting worse. Dr. Otero to take to surgery later today. Says she has also been having a cough. She denies CP, SOB, NV, or diarrhea. 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 This may be related to decreased lung volumes. Diffuse airspace opacities of the bilateral hemithoraces are not significantly changed. Findings may represent worsening pulmonary edema, although infectious or inflammatory process not excluded. ST referred for swallow evaluation in order to determine safest and most efficient least restrictive diet. Subjective Observations Pt laying in bed, with high flow nasal cannula in place. O2 sats 98%. Pt awake, alert, agreeable to PO trials. Pt oriented to self and place. She was able to recall 2023, however reported she guessed and only knew it because of the presidential election. Reported by Patient/Caregiver Other Symptoms History of aspiration or pneumonia Comment Pt reports her baseline diet is regular solids and thin liquids, however states she gravitates more towards softer solids. Current Diet NPO The IDDSI Framework Protocol: IDDSI.1 Objective Assessment Mental Status Alert,Responsive,Cooperative Comment Oral motor exam revealed reduced labial strength and protrusion, reduced lingual strength and ROM. Pt with natural dentition, good condition. Food and Liquid Trials Position During Assessment Upright (90 degrees) Liquids Trialed Thin (IDDSI 0) Solid Trials Soft & Bite-sized (IDDSI 6), Regular (IDDSI 7) Administration Type Straw,Self-feeding,Needs some assistance Oral Impairment Mildly impaired Oral Phase Comments Pt consumed 1 benjamin cracker and a few bites of a peanut butter and jelly sandwich with 8 oz of thin juice/water via straw. She required some assistance with set up, however able to drink from cup and eat food independently. For reg solids she demonstrated adequate bite size and rate, prolonged mastication, extended ap transport, piecemeal deglutition, mild oral stasis. She requested liquid wash d/t dry consistency of solids. For sandwich, she demonstrated adequate bite size and rate, prolonged mastication however adequate bolus formation and control, piecemeal deglutition . For thin liquids via straw she exhibited adequate suction , good oral acceptance and containment, suspected loss of bolus resulting in premature spillage. Pharyngeal Impairment Mildly impaired Pharyngeal Phase Comments ST suspects delayed swallow reflex with all trials. For solids she demonstrated no overt s/s of aspiration. She benefited from liquids wash to assist with clearance. For thin liquids via straw, she exhibited consecutive sips, 2x throat clear, clear vocal quality. Fatigue/Endurance Mild fatigue The IDDSI Framework Protocol: IDDSI.1 Findings Swallowing Function Oropharyngeal phase dysphagia Severity of Swallow Impairment Mildly-moderately impaired Prognosis Good Impact on Safety and Functioning Risk for aspiration Recommendations Instrumental Assessment Yes Swallowing Treatment Yes Frequency Daily while inpatient Recommended Solids Minced & Moist (IDDSI 5) Recommended Liquids Thin (IDDSI 0) Other Recommendations ST recommends IDDSI 5/IDDSI 0 with strict oral care before/ after intake and the below mentioned safe swallowing strategies in place. ST also recommends Pt participate in a MBS to rule out aspiration/ silent aspiration. Safety Precautions/Swallowing Remain upright (90 degrees) Recommendations during all oral intake,Upright position at least 30 minutes after meals,Small bites and sips when eating,Slow rate; swallow between bites, Alternate liquids and solids, Set-up assistance,Strict oral care after intake Medication Recommendations As Tolerated Education Patient/Caregiver Education Described results of evaluation,Patient expressed understanding of evaluation, Patient expressed agreement with goals & treatment plans, Patient requires further education/training Goals Short-term Goals STG 1: Patient will utilize safe swallowing strategies 90% of the time with minimal verbal cues in order to consume safest and most efficient least restrictive diet. STG 2: Patient will tolerate PO trials of IDDSI 5/6/7 with no clinical s/s of dysphagia 100% of the time in order to consume least restrictive diet . STG 3: Patient will tolerate thin liquids with no clinical s/s of aspiration 100% of the time in order to consume least restrictive diet. Long-term Goals LTG: Patient will tolerate safest and most efficient diet with no clinical s/s of aspiration or dysphagia 100% of the time in order to consume least restrictive diet .
[2023-11-18] MEDS: POTASSIUM CHLORIDE 20 MEQ TAB 40 MEQ PO ×2 (11:24→16:51)
--- NOTE | 2023-11-18 15:14 | P.PN_ITS ---
Subjective Subjective Date Patient Seen: 11/18/23 Time Patient Seen: 13:04 Interval history: yesterday O2 was advanced to heated high flow, on 50L at 100% was able to maintain O2 saturations. appears well today. Was moved to ICU yesterday as patient appeared to possibly require intubation. Goals of care discussions were performed and patient is full code. Exam Vital Signs (past 8 hours): - 11/18/23 07:30 11/18/23 08:00 11/18/23 08:00 Temperature Pulse Rate 92 H 97 H Respiratory Rate 28 H 35 H Blood Pressure 116/56 L Pulse Oximetry 96 94 11/18/23 08:30 11/18/23 08:31 11/18/23 09:00 Temperature Pulse Rate 94 H 97 H 102 H Respiratory Rate 33 H 28 H 33 H Blood Pressure 116/56 L Pulse Oximetry 96 97 11/18/23 09:00 11/18/23 09:30 11/18/23 10:00 Temperature Pulse Rate 102 H 102 H Respiratory Rate 42 H 37 H Blood Pressure 130/56 L Pulse Oximetry 93 94 11/18/23 10:00 11/18/23 10:30 11/18/23 11:00 Temperature Pulse Rate 96 H 100 H Respiratory Rate 31 H 46 H Blood Pressure 127/58 L Pulse Oximetry 92 92 11/18/23 11:00 11/18/23 11:30 11/18/23 12:00 Temperature 97.5 F L Pulse Rate 99 H 91 H Respiratory Rate 38 H 41 H Blood Pressure 119/58 L Pulse Oximetry 93 93 11/18/23 12:00 11/18/23 12:15 11/18/23 12:30 Temperature Pulse Rate 98 H 101 H Respiratory Rate 28 H 35 H Blood Pressure 111/55 L 111/55 L Pulse Oximetry 93 88 L 11/18/23 12:57 11/18/23 13:00 11/18/23 13:00 Temperature Pulse Rate 96 H 97 H Respiratory Rate 24 49 H Blood Pressure 111/55 L 109/55 L Pulse Oximetry 93 91 11/18/23 13:30 11/18/23 14:00 11/18/23 14:00 Temperature Pulse Rate 96 H 97 H Respiratory Rate 34 H 38 H Blood Pressure 123/54 L Pulse Oximetry 94 93 11/18/23 14:17 11/18/23 14:30 11/18/23 15:00 Temperature Pulse Rate 101 H 98 H 100 H Respiratory Rate 33 H 25 H 35 H Blood Pressure 123/54 L Pulse Oximetry 93 95 94 11/18/23 15:01 11/18/23 15:01 Temperature Pulse Rate 99 H Respiratory Rate 24 Blood Pressure 110/55 L Pulse Oximetry 95 Fraction of Inspired Oxygen 100 SaO2/FiO2 Ratio 127 Oxygen Delivery Method High Flow Nasal Cannula,Heated High Flow Oxygen Flow Rate 50 Narrative Exam Narrative: NAD, alert and oriented. Fluent speech. Lungs are clear, normal rate and effort. Heart is regular, no murmur gallop or rub. Abdomen is soft, non distended. She is mild tenderness at the laparoscopic insertion sites. BAO with slightly bilious mixed with serosanguinous fluid. Extremities are free of edema. Objective Labs 11/18/23 04:09 11/18/23 04:09 Labs: Laboratory Results - last 24 hr 11/17/23 11/17/23 11/17/23 16:10 16:17 17:37 WBC 18.5 H RBC 4.22 Hgb 12.8 Hct 38.9 MCV 92.0 MCH 30.2 MCHC 32.8 RDW 15.5 H Plt Count 207 Neut % (Auto) 80.3 H Lymph % (Auto) 5.1 L [place] % (Auto) 14.3 H Eos % (Auto) 0.1 L Baso % (Auto) 0.2 Neut # (Auto) 23433 H Lymph # (Auto) 900 L [place] # (Auto) 2600 H Eos # (Auto) 0 Baso # (Auto) 0 ABG Sample Site Right radial ABG pH 7.47 H ABG pCO2 49.3 H ABG pO2 55 L ABG HCO3 36 H ABG Total CO2 37 H ABG O2 Saturation 89 L ABG Base Excess 12.0 H VBG pH 7.45 H VBG pCO2 47.3 VBG pO2 21 L VBG HCO3 33 H VBG Total CO2 34 H VBG O2 Saturation 36 L VBG Base Excess 9.0 H FiO2 100 100 Sodium 140 Potassium 3.4 Chloride 106 Carbon Dioxide 31 BUN 11 Creatinine 0.66 Estimated GFR > 60 BUN/Creatinine Ratio 16.7 Glucose 134 H Calcium 8.3 L Magnesium 1.9 Total Bilirubin 1.2 AST 24 ALT 32 Alkaline Phosphatase 106 Total Protein 6.8 Albumin 3.6 Globulin 3.2 Albumin/Globulin Ratio 1.1 11/18/23 04:09 WBC 16.5 H RBC 3.76 L Hgb 11.4 L Hct 34.3 L MCV 91.3 MCH 30.4 MCHC 33.3 RDW 15.1 H Plt Count 215 Neut % (Auto) 76.3 H Lymph % (Auto) 8.8 L [place] % (Auto) 14.6 H Eos % (Auto) 0.2 L Baso % (Auto) 0.1 Neut # (Auto) 74736 H Lymph # (Auto) 1400 [place] # (Auto) 2400 H Eos # (Auto) 0 Baso # (Auto) 0 ABG Sample Site ABG pH ABG pCO2 ABG pO2 ABG HCO3 ABG Total CO2 ABG O2 Saturation ABG Base Excess VBG pH VBG pCO2 VBG pO2 VBG HCO3 VBG Total CO2 VBG O2 Saturation VBG Base Excess FiO2 Sodium 141 Potassium 3.2 L Chloride 102 Carbon Dioxide 36 H BUN 13 Creatinine 0.85 Estimated GFR > 60 BUN/Creatinine Ratio 15.3 Glucose 114 H Calcium 8.1 L Magnesium 2.1 Total Bilirubin 0.8 AST 19 ALT 26 Alkaline Phosphatase 92 Total Protein 6.2 L Albumin 3.1 L Globulin 3.1 Albumin/Globulin Ratio 1.0 PFSH Medical History Muscular deconditioning Vitamin B deficiency Hyperlipidemia (Unknown) 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 Otero consulted, s/p lap marian on 11/13. Complicated by bile leak. BAO drain continues to have bilious drainage. General surgery recommends transfer for ERCP. -continue Zosyn, awaiting urine culture and also covering for possible pneumonia noted on CT imaging. -diet per surgery # acute hypoxic resp failure 2/2 possible PNA or diastolic heart failure -imaging shows bilateral upper lobe infiltrates. CTA showed inflammatory infiltrates, negative for PE -continue abx as above -wean O2 as able -ordered DOBIE WORKER eval, recommend barium swallow with her MS history and current weakness, but unable to with her current O2 requirements. Diet reduced to soft, with thin liquids. - continue zosyn for bacterial PNA -will try to diurese slightly, TTE is unremarkable with normal EF. Continue 20 mg IV BID. # UTI, present on admission and improving. -UA with pyuria, urine culture grew alejandrina. -abx as noted above -has mcmahon for intake / output monitoring on diuretic. # depression, stable. -continue prozac and seroquel # MS, stable. -wheelchair bound Code status is full code. DVT prophylaxis with SCDs. Proxy is sister Shaina who is DPOA. Dispo: remains ICU, pending transfer for ERCP to higher level of care. Multiple discussions today with transfer center today. I spent 40 minutes providing critical care management this patient. This excludes time spent in performing separately billed procedures. Quality VTE Deep Vein Thrombosis/Pulmonary Embolism Present on Admission: No
[2023-11-18] MEDS: ACETAMINOPHEN 325 MG TABLET 650 MG PO (18:26)
[2023-11-18] MEDS: TRAZODONE 50 MG TABLET 25 MG PO (20:25)
[2023-11-19] VITALS (46 sets, daily range): BP systolic 102–122; BP diastolic 50–57; PULSE 56–107; RESP 20–55; TEMP 36.1–38; O2SAT 88–100
[2023-11-19] MEDS: PIPERACILLIN/TAZO 3.375 GM in SODIUM CHLORIDE 0.9% 100 ML IV ×2 (04:02→12:40)
[2023-11-19 04:36] LABS: Add Manual Diff / Slide Review NO; Basophils Absolute Auto 100 /uL (0-100); Basophils Percent Auto 0.3 % (0-2); Eosinophils Absolute Auto 300 /uL (0-450); Eosinophils Percent Auto 1.6 % (2-4); Hematocrit 34.5 % (36-46); Hemoglobin 11.3 g/dL (12.0-16.0); Lymphocytes Absolute Auto 1300 /uL (1100-4500); Lymphocytes Percent Auto 7.7 % (25-40); Mean Corpuscular HGB Conc 32.8 % (30-36); Mean Corpuscular Hemoglobin 30.2 PG (26-34); Mean Corpuscular Volume 91.8 fL (80-100); Monocytes Absolute Auto 1900 /uL (0-900); Monocytes Percent Auto 11.2 % (3-14); Neutrophils Absolute Auto 13200 /uL (1500-7000); Neutrophils Percent Auto 79.2 % (50-75); Platelet Count 225 X10^3/uL (150-400); Red Blood Cell Count 3.75 X10^6/uL (4.0-5.2); Red Cell Distribution Width 15.1 % (11.6-14.8); White Blood Cell Count 16.7 X10^3/uL (4.5-11.0)
[2023-11-19] MEDS: ACETAMINOPHEN 325 MG TABLET 650 MG PO ×2 (04:39→17:34)
[2023-11-19 04:51] LABS: Alanine Aminotransferase 20 IU/L (<35); Albumin 3.1 g/dL (3.5-5.0); Alkaline Phosphatase 90 U/L (38-126); Aspartate Aminotransferase 19 IU/L (14-36); BUN Creatinine Ratio 20.5 (6-22); Bilirubin Total 0.7 mg/dL (0.2-1.3); Blood Urea Nitrogen 15 mg/dL (7-17); Calcium 8.3 mg/dL (8.4-10.2); Carbon Dioxide 35 mmol/L (22-32); Chloride 104 mmol/L (98-107); Estimated Glomerular Filt Rate > 60 mL/min (>60); Globulin 3.1 g/dL (1.7-4.1); Glucose 105 mg/dL (80-110); HEMOLYSIS < 15 (0-50); Magnesium 2.2 mg/dL (1.6-2.3); Sodium 139 mmol/L (137-145); Total Protein 6.2 g/dL (6.3-8.2)
[2023-11-19] MEDS: ALBUTEROL 2.5 MG/3 ML NEB (ADULT) INH ×3 (06:21→14:22)
--- NOTE | 2023-11-19 06:52 | PC.NURSE ---
Patient alert to self, place and time, conversates well, but doesnt fully comprehend directions or the situation. Wheelchair bound at baseline, turned q2. VSS, NSR/ST 80s-110, normotensive, afebrile, tachypnic breathing from 22-35 throughout the night. On 50L 100% FiO2 HHFNC, tolerated most of the night, had multiple desaturation episodes throughout the night, one notably when HHFNC disconnected patient desaturated to 40%, patient given rescue breaths with HHFNC + Nonrebreather. Patient takes a while to recover, and has no reserve. Tolerating Dysphagia diet, swallows pills with applesauce. Voids per mcmahon, cloudy, hematuria noted. BAO to R abdomen intact, dressing is CDI, and drainage is Bilious 25mL throughout the night. Skin intact, lap sites covered with bandaids, no drainage noted. PIV x3 intact, abx running per order. Call light within reach, bed alarm on for safety.
[2023-11-19] MEDS: FLUoxetine 20 MG CAPSULE 40 MG PO (08:12)
[2023-11-19] MEDS: QUETIAPINE 25 MG TABLET PO (08:13)
[2023-11-19] MEDS: FUROSEMIDE 20 MG/2 ML VIAL IV (08:17)
--- NOTE | 2023-11-19 09:43 | DI.RAD.S_ITS ---
PROCEDURE: XR CHEST 1V INDICATIONS: SOB TECHNIQUE: One view of the chest was acquired. COMPARISON: [facility], CT, CT ANGIO CHEST PE PROTOCOL, 11/14/2023, 16:00. [facility], CR, XR CHEST 1V, 11/16/2023, 2:06. [facility], CR, XR CHEST 1V, 11/17/2023, 15:11. FINDINGS: Surgical changes and devices: None. Lungs and pleura: Bilateral lung perihilar predominant opacities. No pleural effusions or pneumothorax. Mediastinum: Mediastinal contours appear normal. Heart is mildly enlarged. Bones and chest wall: No suspicious bony lesions. Overlying soft tissues appear unremarkable. IMPRESSION: Bilateral lung perihilar predominant opacities which could represent pulmonary edema and/or multifocal pneumonia. Dictated by: Desiree Becerril MD, PhD on 11/19/2023 at 10:30 Approved by: Desiree Becerril MD, PhD on 11/19/2023 at 10:32
--- NOTE | 2023-11-19 09:44 | ST.IPDYTX ---
Visit Care Team Role Provider Type Jamar Johnson MD Other Providers Physician Specialty: Medical Address: Phone: Fax: Email: Antonella Trinidad MD Other Providers Physician Specialty: Medical Address: Phone: Fax: Email: Landon Farias MD Other Providers Physician Specialty: Medical Address: [address] [place], [address] Phone: Fax: Email: Jessica Hayes MD Other Providers Physician Specialty: Internal Medicine Address: Phone: Fax: Email: Gabo Zhao MD Other Providers Physician Specialty: Medical Address: Phone: Fax: Email: Rashaun Otero MD Other Providers Physician Specialty: General Surgery Address: [address] , [address], [address] Email: [email or web address] Alejandra Urbano MD Other Providers Physician Specialty: Anesthesiology Internal Medicine Address: [address] [place], [address] Fax: Email: [email or web address] Stephanie Shankar MD Other Providers Physician Specialty: Internal Medicine Address: [address] [place], [address] Phone: Fax: Email: [email or web address] Lewis Carmona MD Other Providers Physician Specialty: Internal Medicine Address: Phone: Fax: Email: Denzel Berry MD Other Providers Physician Specialty: Medical Address: Phone: Fax: Email: Shekhar Qureshi MD Other Providers Physician Specialty: Internal Medicine Address: [address] [place], [address] Phone: Fax: Email: Ron Caceres MD Other Providers Physician Specialty: Medical Address: [address], [address] Phone: Fax: Email: Gabriela Conway MD Other Providers Physician Specialty: Medical Address: Phone: Fax: Email: Klaudia Craft Other Providers Physician Specialty: Medical Address: Phone: Fax: Email: Kathy Weathers MD Other Providers Physician Specialty: Internal Medicine Address: Phone: Fax: Email: Vasiliy Rubio DO Family Provider Physician Primary Care Provider Specialty: Family Practice Address: [address] [place] [address], [address], [address] Email: [email or web address] Astrid Veliz DO Emergency Provider Physician Referring Provider Specialty: Emergency Medicine Address: [address] [place] [address], [address] Email: [email or web address] Nomi Bhatti DO Admit Provider Physician Attending Provider Specialty: Internal Medicine Address: [address] [place] [address], [address] Email: [email or web address] MANAGEMENT MANAGER Dysphagia Treatment RECORDS MANAGEMENT MANAGER Dysphagia Treatment Start: 11/19/23 09:30 Freq: Status: Active Protocol: Document 11/19/23 09:30 CG (Rec: 11/19/23 09:44 CG [id number]) Dysphagia Treatment Session Time Visit Start Time 09:15 Visit Stop Time 09:30 Total Visit Minutes 15 Setting Assessment Location Acute Care Patient Information Subjective Observations Pt laying in bed, with heated high flow nasal cannula in place. O2 sats 95-98%. Pt awake, alert, agreeable to PO trials. Pt oriented to self, place, and time, referencing the clock on the wall. Stated she did not remember working with ST yesterday but that there have been many people in and out of her room. Treatment Liquids Trialed Thin (IDDSI 0) Solids Trialed Minced & Moist (IDDSI 5) Administration Type Straw,Self-Feeding Oral Strategies Upright at 90 degrees Pharyngeal Strategies Sitting Upright (90 deg),Small Bites and Sips Additional Dysphagia Treatment Minimize distractions, ensure Strategies no talking with mouth full, upright posture Treatment Activities Pt was repositioned upright using bed controls. TV muted to reduce distractions. PO trials of apple juice, applesauce, and cut up pieces of banana with intermittent palpation for subjective observation of swallow speed. Consulted with nsg re pt status. Chart reviewed to determine pt appropriateness for MBS; discussed with pt and nursing (pt not appropriate at this time). The IDDSI Framework Protocol: IDDSI.1 Assessment Patient Response to Treatment Fair Assessment of Improvement Across trials of all consistencies, pt demonstrated no overt s/sx aspiration. However, based on laryngeal palpation, pt's swallow does seem subjectively slow to initiate, which may be due to her overall weakness at this time. Recommended pt utilize small sips of thin liquid via straw. Pt appears safe with thin via small straw sips. Recommend continued diet of minced and moist solids due to weakness and compromised respiratory status. Some cuing and occasional supervision is recommended to ensure tolerance. Based on pt's respiratory status, pt is not appropriate for [facility] at this time. She is unable to tolerate coming off of HHFNC. Recent nursing note indicates that pt desaturated to 40% when HHFNC was briefly disconnected. Her O2 was also observed to drop during transfer the last time this RECORDS MANAGEMENT MANAGER observed the pt. Based on no overt s/sx aspiration, recommend continue with current diet, though silent aspiration cannot be ruled out without an instrumental assessment. Recommendations Recommendations Continue Current Diet Liquids Order Thin (IDDSI 0) Diet Order Minced & Moist (IDDSI 5) Medication Recommendations As Tolerated Additional Dietary Needs Single Sips,Reminders to Use Strategies Aspiration Precautions Additional Precautions Setup assistance required. Treatment Plan Placement Recommendation after Discharge Skilled Nursing Care Facility Appropriate for Continued Therapy Yes Therapy Recommendations Continue to assess diet tolerance.
--- NOTE | 2023-11-19 09:46 | PM.PN.EICU ---
Subjective Subjective IF CAMERA ACTIVATED, patient seen via real-time interactive audiovisual communication: Camera activated Consent obtained for tele-linux engineer care: Yes Patient Location: ICU Provider location (State): Other participants/roles: RT, RN Interval history: 68-year-old woman s/p post laparoscopic cholecystectomy day 5 , complicated by respiratory failure, PNA & biliary peritonitis, surgery recommended to be transferred for ERCP with stent placement for occlusion of cystic duct Overnight/ this am: patient comfortable in bed, NAD, on HFNC 50 L/ 100% A/P: # Sepsis secondary to acute cholecystitis, Pneumonia and biliary peritonitis: - Evaluated by surgery, now s/p lap marian with percutaneous drain placement on 11/14/2023. - Continue Zosyn - Pending to be transferred for ERCP with stent placement for occlusion of cystic duct # Acute Hypoxic Respiratory failure / Bilateral upper lobe pneumonia - Most likely from worsening bilateral pneumonia and biliry peritonitis - May have some component of pulmonary edema. - Reviewed 2D echocardiogram on 11/16/2023, LVEF 60 to 65% with no evidence of gastric dysfunction. - CT of chest on 11/14/2023 with no acute PE but bilateral upper lobe pneumonia and trace right pleural effusion. - Currently on HFNC, at 100 % FiO2 and 50 L/min flow. NAD/ no work of breathing - Continue diuresis with 2o mg bid, goal to keep net neg 0.5 to 1 L daily fluid balance. - Continue empiric IV antibiotics Zosyn. - Check CXR today # Multiple sclerosis, wheelchair-bound at baseline: -Continue supportive care. ICU Bundle: # FEN: Keep n.p.o. for now. # Glucose: fairly controlled. C/w Accu checks Q6 hours and SSI. BG goal 140-180 # Prophylaxis: SCDs for DVT prophylaxis, no strong indication for stress ulcer prophylaxis # Lines/tubes: PIV, Gerber # CODE STATUS: Full code # Disposition: Remains in ICU CCT 30 min Current Medications Current Medications Medications: Home Medications VITAMIN D (Vitamin D3) 2,000 unit PO QDAY ##0 02/21/16 [History Confirmed 11/15/23] ibuprofen 200 mg tablet 400 mg PO Q4HP PRN Pain (Scale Score 4-6) ##0 02/21/16 [History Confirmed 11/15/23] cyanocobalamin (vitamin B-12) 1,000 mcg tablet,extended release 1,000 mcg PO QDAY #30 tabs 02/02/ [Rx Confirmed 11/15/23] docusate calcium 240 mg capsule 240 mg PO DAILY 12/01/22 [History Confirmed 11/15/23] nystatin 100,000 unit/gram topical powder 1 applic topical BID PRN rash #30 grams 12/16/22 [Rx Confirmed 11/15/23] calcium carbonate 600 mg-vitamin D3 10 mcg (400 unit) tablet See Rx Instructions .Route .COMPLEX #90 tabs 01/02/23 [Rx Confirmed 11/15/23] quetiapine 25 mg tablet (Seroquel) 25 mg PO DAILY #30 tabs 07/29/23 [Rx Confirmed 11/15/23] trazodone 50 mg tablet 25 mg (1/2 x 50 mg) PO ONCE PM #45 tabs 09/18/23 [Rx Confirmed 11/15/23] polyethylene glycol 3350 17 gram/dose oral powder (Miralax) 17 g PO DAILY PRN constipation #238 grams 10/21/23 [Rx Confirmed 11/15/23] sennosides 8.6 mg tablet (Senna Lax) 8.6 mg PO DAILY PRN constipation #90 tabs 10/21/23 [Rx Confirmed 11/15/23] fluoxetine 40 mg capsule 40 mg PO DAILY #90 caps 10/27/23 [Rx Confirmed 11/15/23] nitrofurantoin monohydrate/macrocrystals 100 mg capsule (Macrobid) 100 mg PO BID 7 days #14 caps 11/12/23 [Rx Confirmed 11/15/23] ondansetron 4 mg disintegrating tablet 4 mg PO TID PRN nausea and vomiting #30 tabs 11/12/23 [Rx Confirmed 11/15/23] Visit Medications (administered) Generic Name Dose Route Start Last Admin Trade Name Freq PRN Reason Stop Dose Admin Acetaminophen 650 mg 11/14/23 17:25 11/19/23 04:39 Acetaminophen 325 Mg Tablet PO 650 mg Q6H PRN Administration Fever/Mild Pain (1-3) Albuterol 2.5 mg 11/17/23 23:00 11/19/23 06:21 Albuterol 2.5 Mg/3 Ml Neb (Adult) INH 2.5 mg [id number] ISABELLA Administration Fluoxetine HCl 40 mg 11/15/23 09:00 11/19/23 08:12 Fluoxetine 20 Mg Capsule PO 40 mg DAILY ISABELLA Administration Furosemide 20 mg 11/17/23 12:00 11/19/23 08:17 Furosemide 20 Mg/2 Ml Vial IV 20 mg BID ISABELLA Administration Hydromorphone HCl 0.5 mg 11/14/23 17:25 11/17/23 20:56 Hydromorphone 0.5 Mg Inj IV 0.25 mg Q4H PRN Administration Pain, Moderate (4-6) Piperacillin Sod/Tazobactam 100 mls @ 25 mls/hr 11/14/23 20:00 11/19/23 09:24 Sod 3.375 gm/ Sodium Chloride IV Infused Q8H ISABELLA Infusion Sodium Chloride 250 mls @ 21 mls/hr 11/16/23 23:15 11/17/23 03:21 Normal Saline 0.9% IV 21 mls/hr Q24H PRN Administration Flush Ondansetron HCl 4 mg 11/14/23 17:25 11/17/23 15:48 Ondansetron 4 Mg/2 Ml Inj IV 4 mg Q4HR PRN Administration Nausea And Vomiting Quetiapine Fumarate 25 mg 11/15/23 09:00 11/19/23 08:13 Quetiapine 25 Mg Tablet PO 25 mg DAILY ISABELLA Administration Sodium Chloride 10 ml 11/16/23 19:52 11/18/23 03:28 Sodium Chloride 0.9% Flush IV 10 ml PRN PRN Administration Flush Sodium Chloride 10 ml 11/16/23 21:00 11/18/23 20:25 Sodium Chloride 0.9% Flush IV 10 ml BID ISABELLA Administration Trazodone HCl 25 mg 11/15/23 21:00 11/18/23 20:25 Trazodone 50 Mg Tablet PO 25 mg BEDTIME ISABELLA Administration Objective Ventilator Parameters: Ventilator Settings FiO2 100 Labs 11/19/23 04:08 11/19/23 04:08 Labs: Laboratory Results - last 24 hr 11/19/23 04:08 WBC 16.7 H RBC 3.75 L Hgb 11.3 L Hct 34.5 L MCV 91.8 MCH 30.2 MCHC 32.8 RDW 15.1 H Plt Count 225 Neut % (Auto) 79.2 H Lymph % (Auto) 7.7 L [place] % (Auto) 11.2 Eos % (Auto) 1.6 L Baso % (Auto) 0.3 Neut # (Auto) 15543 H Lymph # (Auto) 1300 [place] # (Auto) 1900 H Eos # (Auto) 300 Baso # (Auto) 100 Sodium 139 Potassium 4.0 Chloride 104 Carbon Dioxide 35 H BUN 15 Creatinine 0.73 Estimated GFR > 60 BUN/Creatinine Ratio 20.5 Glucose 105 Calcium 8.3 L Magnesium 2.2 Total Bilirubin 0.7 AST 19 ALT 20 Alkaline Phosphatase 90 Total Protein 6.2 L Albumin 3.1 L Globulin 3.1 Albumin/Globulin Ratio 1.0 Exam Vital Signs (past 8 hours): - 11/19/23 02:00 11/19/23 02:00 11/19/23 02:19 Temperature Pulse Rate 85 83 Respiratory Rate 34 H 26 H Blood Pressure 102/52 L 102/52 L Pulse Oximetry 97 98 Oxygen Delivery Method Oxygen Flow Rate 50 Fraction of Inspired Oxygen 11/19/23 02:30 11/19/23 03:00 11/19/23 03:00 Temperature Pulse Rate 92 H 89 Respiratory Rate 33 H 28 H Blood Pressure 113/56 L Pulse Oximetry 96 98 Oxygen Delivery Method Oxygen Flow Rate 50 50 Fraction of Inspired Oxygen 11/19/23 03:30 11/19/23 04:00 11/19/23 04:00 Temperature 98.4 F Pulse Rate 93 H 95 H Respiratory Rate 37 H 30 H Blood Pressure 107/57 L Pulse Oximetry 94 91 Oxygen Delivery Method Oxygen Flow Rate 50 50 Fraction of Inspired Oxygen 11/19/23 04:02 11/19/23 04:30 11/19/23 05:00 Temperature Pulse Rate 93 H 92 H Respiratory Rate 25 H 26 H Blood Pressure Pulse Oximetry 91 90 L Oxygen Delivery Method Heated High Flow Humidification Oxygen Flow Rate 100 100 Fraction of Inspired Oxygen 11/19/23 05:03 11/19/23 05:03 11/19/23 05:03 Temperature Pulse Rate 92 H 56 L Respiratory Rate 28 H 32 H Blood Pressure 122/57 L Pulse Oximetry 92 96 Oxygen Delivery Method Oxygen Flow Rate 100 Fraction of Inspired Oxygen 11/19/23 05:30 11/19/23 06:00 11/19/23 06:00 Temperature Pulse Rate 84 93 H Respiratory Rate 21 24 Blood Pressure 121/56 L Pulse Oximetry 99 98 Oxygen Delivery Method Oxygen Flow Rate 100 50 Fraction of Inspired Oxygen 11/19/23 06:21 11/19/23 06:21 11/19/23 06:24 Temperature Pulse Rate 87 87 87 Respiratory Rate 30 H 30 H 26 H Blood Pressure Pulse Oximetry 98 98 99 Oxygen Delivery Method Heated High Flow Oxygen Flow Rate 50 Fraction of Inspired Oxygen 100 11/19/23 06:24 11/19/23 06:30 11/19/23 07:00 Temperature Pulse Rate 91 H 85 Respiratory Rate 40 H 38 H Blood Pressure 121/56 L Pulse Oximetry 99 97 Oxygen Delivery Method Oxygen Flow Rate Fraction of Inspired Oxygen 11/19/23 07:00 11/19/23 07:30 11/19/23 08:00 Temperature Pulse Rate 97 H Respiratory Rate 38 H Blood Pressure 117/56 L Pulse Oximetry 91 Oxygen Delivery Method Heated High Flow Oxygen Flow Rate Fraction of Inspired Oxygen 11/19/23 08:00 11/19/23 08:00 11/19/23 08:30 Temperature Pulse Rate 88 97 H Respiratory Rate 55 H 40 H Blood Pressure 109/54 L Pulse Oximetry 96 98 Oxygen Delivery Method Oxygen Flow Rate Fraction of Inspired Oxygen 11/19/23 09:00 11/19/23 09:00 Temperature 97.0 F L Pulse Rate 93 H Respiratory Rate 39 H Blood Pressure 106/56 L Pulse Oximetry 95 Oxygen Delivery Method Oxygen Flow Rate Fraction of Inspired Oxygen Fraction of Inspired Oxygen 100 SaO2/FiO2 Ratio 98 Oxygen Delivery Method Heated High Flow Oxygen Flow Rate 50 Quality TeleICU VTE Deep Vein Thrombosis/Pulmonary Embolism Present on Admission: No
--- NOTE | 2023-11-19 10:01 | SLP.IPNOTE ---
Per Dr. James, d/c speech order due to pt tolerating diet and pending transfer.
--- NOTE | 2023-11-19 10:08 | PM.PN.1 ---
Subjective Subjective Date Patient Seen: 11/19/23 Time Patient Seen: 10:08 Interval history: Awaiting transfer for ERCP. Currently no beds are available in the region. She is tolerating her diet. About 35 mL out of the drain overnight Exam Vital Signs (past 8 hours): - 11/19/23 02:19 11/19/23 02:30 11/19/23 03:00 Temperature Pulse Rate 83 92 H 89 Respiratory Rate 26 H 33 H 28 H Blood Pressure 102/52 L Pulse Oximetry 98 96 98 Oxygen Delivery Method Oxygen Flow Rate 50 50 Fraction of Inspired Oxygen 11/19/23 03:00 11/19/23 03:30 11/19/23 04:00 Temperature 98.4 F Pulse Rate 93 H 95 H Respiratory Rate 37 H 30 H Blood Pressure 113/56 L Pulse Oximetry 94 91 Oxygen Delivery Method Oxygen Flow Rate 50 50 Fraction of Inspired Oxygen 11/19/23 04:00 11/19/23 04:02 11/19/23 04:30 Temperature Pulse Rate 93 H Respiratory Rate 25 H Blood Pressure 107/57 L Pulse Oximetry 91 Oxygen Delivery Method Heated High Flow Humidification Oxygen Flow Rate 100 Fraction of Inspired Oxygen 11/19/23 05:00 11/19/23 05:03 11/19/23 05:03 Temperature Pulse Rate 92 H 92 H Respiratory Rate 26 H 28 H Blood Pressure 122/57 L Pulse Oximetry 90 L 92 Oxygen Delivery Method Oxygen Flow Rate 100 100 Fraction of Inspired Oxygen 11/19/23 05:03 11/19/23 05:30 11/19/23 06:00 Temperature Pulse Rate 56 L 84 Respiratory Rate 32 H 21 Blood Pressure 121/56 L Pulse Oximetry 96 99 Oxygen Delivery Method Oxygen Flow Rate 100 Fraction of Inspired Oxygen 11/19/23 06:00 11/19/23 06:21 11/19/23 06:21 Temperature Pulse Rate 93 H 87 87 Respiratory Rate 24 30 H 30 H Blood Pressure Pulse Oximetry 98 98 98 Oxygen Delivery Method Heated High Flow Oxygen Flow Rate 50 50 Fraction of Inspired Oxygen 100 11/19/23 06:24 11/19/23 06:24 11/19/23 06:30 Temperature Pulse Rate 87 91 H Respiratory Rate 26 H 40 H Blood Pressure 121/56 L Pulse Oximetry 99 99 Oxygen Delivery Method Oxygen Flow Rate Fraction of Inspired Oxygen 11/19/23 07:00 11/19/23 07:00 11/19/23 07:30 Temperature Pulse Rate 85 97 H Respiratory Rate 38 H 38 H Blood Pressure 117/56 L Pulse Oximetry 97 91 Oxygen Delivery Method Oxygen Flow Rate Fraction of Inspired Oxygen 11/19/23 08:00 11/19/23 08:00 11/19/23 08:00 Temperature Pulse Rate 88 Respiratory Rate 55 H Blood Pressure 109/54 L Pulse Oximetry 96 Oxygen Delivery Method Heated High Flow Oxygen Flow Rate Fraction of Inspired Oxygen 11/19/23 08:30 11/19/23 09:00 11/19/23 09:00 Temperature 97.0 F L Pulse Rate 97 H 93 H Respiratory Rate 40 H 39 H Blood Pressure 106/56 L Pulse Oximetry 98 95 Oxygen Delivery Method Oxygen Flow Rate Fraction of Inspired Oxygen Fraction of Inspired Oxygen 100 SaO2/FiO2 Ratio 98 Oxygen Delivery Method Heated High Flow Oxygen Flow Rate 50 Const General: No acute distress Other: Abdomen is soft BAO drain with scant bile tinged serous contents Objective Labs 11/19/23 04:08 11/19/23 04:08 Labs: Laboratory Results - last 24 hr 11/19/23 04:08 WBC 16.7 H RBC 3.75 L Hgb 11.3 L Hct 34.5 L MCV 91.8 MCH 30.2 MCHC 32.8 RDW 15.1 H Plt Count 225 Neut % (Auto) 79.2 H Lymph % (Auto) 7.7 L [place] % (Auto) 11.2 Eos % (Auto) 1.6 L Baso % (Auto) 0.3 Neut # (Auto) 03637 H Lymph # (Auto) 1300 [place] # (Auto) 1900 H Eos # (Auto) 300 Baso # (Auto) 100 Sodium 139 Potassium 4.0 Chloride 104 Carbon Dioxide 35 H BUN 15 Creatinine 0.73 Estimated GFR > 60 BUN/Creatinine Ratio 20.5 Glucose 105 Calcium 8.3 L Magnesium 2.2 Total Bilirubin 0.7 AST 19 ALT 20 Alkaline Phosphatase 90 Total Protein 6.2 L Albumin 3.1 L Globulin 3.1 Albumin/Globulin Ratio 1.0 PFSH Medical History Muscular deconditioning Vitamin B deficiency Hyperlipidemia (Unknown) 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
[2023-11-19] MEDS: SODIUM CHLORIDE 0.9% 250 ML 21 ML IV (12:43)
[2023-11-19] MEDS: SODIUM CHLORIDE 0.9% FLUSH 10 ML IV (13:01)
--- NOTE | 2023-11-19 13:28 | CM.DPNOTE ---
DCP Cont Reviewed chart. Patient discussed in multidisciplinary rounds. Patient awaiting transfer for ERCP, suspected leaky bile duct, pending bed availability. If patient remains admitted at , CM team will review discharge plan with patient/family and attempt SNF auth [facility], as long as O2 down to 4-5LO2 and SNF auth secured. CM team following clinical course closely. ANAT
[2023-11-19] MEDS: VANCOMYCIN 1,250 MG/250 ML PIGGYBACK 250 MG IV (14:40)
[2023-11-19] MEDS: FUROSEMIDE 20 MG/2 ML VIAL 40 MG IV (14:41)
--- NOTE | 2023-11-19 17:39 | P.DS_ITS ---
History of Present Illness History of Present Illness Date Patient Seen: 11/19/23 Time Patient Seen: 17:40 Chief complaint: abd pain Narrative: Per admitting provider, Sabiha Persaud is a 68yo F with PMH of wheelchair-bound due to progressive multiple sclerosis, frequent UTI's, depression, HLD, and obesity who presents with acute RUQ pain. Found to have acute cholecystitis. Patient is alert and oriented and tells me she has been having RUQ pain for a few days, and would want surgery to prevent from getting worse. Dr. Otero to take to surgery later today. Says she has also been having a cough. She denies CP, SOB, NV, or diarrhea. Discharge Providers Provider Date of admission: 11/14/23 10:52 Discharge Date: 11/19/23 Primary care physician: Vasiliy Rubio DO Consults: 11/14/23 11:36 Consult to General Surgery Routine Comment: Consulting Provider: Rashaun Otero Reason for consultation: acute marian 11/15/23 10:30 Consult to Physical Therapy Evaluate & Treat Comment: Physician Instructions: Evaluate and Treat 11/17/23 13:53 Consult to Speech Therapy Evaluate & Treat Comment: ? aspiration with meals Physician Instructions: Evaluate and treat 11/17/23 17:09 Consult to Tele-photographic technician Routine Comment: Consulting Provider: Milagro [employer]intensiv[employer] Reason for consultation: Tube Balancer services Discharge provider: Cedric James DO Summary Hospital Course Discharge Diagnosis: # sepsis 2/2 acute cholecystitis, with bile leak, present on admission # acute hypoxic resp failure 2/2 possible PNA or diastolic heart failure # UTI, present on admission and improving. # depression, stable. # MS, stable. Hospital Course: This is a 68 F with PMH of MS, depression, recurrent UTI who was admitted on 11/14/23 with acute cholecystitis. Patient had laparoscopic cholecystectomy on 11/13 that was quite difficult with necrosis and a small cystic duct that was also necrosed. Clips could not be placed at the time, no bile was visualized but a BAO drain was left in place. ABO drain has continued to drain 40-80 cc of bile daily over the area. 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 This improved shortly after with continued zosyn, a small amount of furosemide and supportive care. CTA was negative for PE, showed bilateral lower lobe infiltrates. Echo was performed and discussed below. She was unable to be weaned from supplemental oxygen but was improving. On 11/16 she worsened again with regards to respiratory status, requiring 15L of O2 during the morning, then worsening to heated high flow. She was transferred to the ICU. Echocardiogram was unremarkable with a normal EF and no evidence of cardiac etiology. PURCHASING CLERK evaluation recommended barium but unable to tolerate given her high O2 requirements. She has been doing well with a modified diet and thin liquids since. She has been stable on 50L at 80-100% FiO2. Diuresis has not helped with 20-40 mg IV BID of furosemide over the last two days. She is currently on zosyn and vancomycin was added with her acute decompensation on 11/16. Urine cultures grew alejandrina, but blood cultures have been negative. No sputum was able to be obtained. Presumed source of ongoing sepsis is presumed to be peritonitis from biliary leak. General surgery recommended transfer for ERCP. Patient was [facility] to [facility] with accepting photographic technician Dr. Parry. Time Spent with Patient Time spent: Greater than 30 minutes Exam Vital Signs (past 8 hours): - 11/19/23 10:11/19/23 10:00 11/19/23 10:30 Temperature Pulse Rate 91 H 85 Respiratory Rate 22 21 Blood Pressure 104/51 L Pulse Oximetry 99 99 Oxygen Delivery Method Oxygen Flow Rate Fraction of Inspired Oxygen 11/19/23 10:49 11/19/23 10:52 11/19/23 11:00 Temperature Pulse Rate 96 H 96 H 95 H Respiratory Rate 20 20 22 Blood Pressure Pulse Oximetry 100 100 100 Oxygen Delivery Method Heated High Flow Oxygen Flow Rate 50 Fraction of Inspired Oxygen 100 11/19/23 11:00 11/19/23 11:30 11/19/23 12:00 Temperature Pulse Rate 101 H Respiratory Rate 33 H Blood Pressure 113/55 L Pulse Oximetry 98 Oxygen Delivery Method Heated High Flow Oxygen Flow Rate Fraction of Inspired Oxygen 11/19/23 12:00 11/19/23 12:00 11/19/23 12:30 Temperature Pulse Rate 102 H 100 H Respiratory Rate 37 H 33 H Blood Pressure 113/56 L Pulse Oximetry 97 96 Oxygen Delivery Method Oxygen Flow Rate Fraction of Inspired Oxygen 11/19/23 13:00 11/19/23 13:00 11/19/23 13:30 Temperature 99.7 F H 99.7 F H Pulse Rate 96 H 91 H Respiratory Rate 23 45 H Blood Pressure 102/50 L Pulse Oximetry 99 100 Oxygen Delivery Method Oxygen Flow Rate Fraction of Inspired Oxygen 11/19/23 14:00 11/19/23 14:00 11/19/23 14:22 Temperature 99.7 F H Pulse Rate 97 H 97 H Respiratory Rate 30 H 20 Blood Pressure 107/53 L Pulse Oximetry 99 97 Oxygen Delivery Method Heated High Flow Oxygen Flow Rate 50 Fraction of Inspired Oxygen 85 11/19/23 14:27 11/19/23 14:30 11/19/23 15:00 Temperature 99.9 F H 99.9 F H Pulse Rate 97 H 95 H 100 H Respiratory Rate 20 32 H 29 H Blood Pressure Pulse Oximetry 97 96 97 Oxygen Delivery Method Oxygen Flow Rate Fraction of Inspired Oxygen 11/19/23 15:00 11/19/23 15:30 11/19/23 16:00 Temperature 100.0 F H 100.2 F H Pulse Rate 100 H 99 H Respiratory Rate 28 H 25 H Blood Pressure 107/53 L Pulse Oximetry 98 98 Oxygen Delivery Method Oxygen Flow Rate Fraction of Inspired Oxygen 11/19/23 16:00 11/19/23 16:30 11/19/23 17:00 Temperature 100.4 F H 100.2 F H Pulse Rate 97 H 104 H Respiratory Rate 22 29 H Blood Pressure 106/51 L Pulse Oximetry 97 90 L Oxygen Delivery Method Oxygen Flow Rate Fraction of Inspired Oxygen 11/19/23 17:00 11/19/23 17:30 Temperature 100.0 F H Pulse Rate 102 H Respiratory Rate 44 H Blood Pressure 108/52 L Pulse Oximetry 88 L Oxygen Delivery Method Oxygen Flow Rate Fraction of Inspired Oxygen Fraction of Inspired Oxygen 85 SaO2/FiO2 Ratio 114 Oxygen Delivery Method Heated High Flow Oxygen Flow Rate 50 Narrative Exam Narrative: NAD, alert and oriented. Fluent speech. Lungs are clear, normal rate and effort. Heart is regular, no murmur gallop or rub. Abdomen is soft, non distended. She is mild tenderness at the laparoscopic insertion sites. BAO with slightly bilious mixed with serosanguinous fluid. Extremities are free of edema. Objective Labs 11/19/23 04:08 11/19/23 04:08 Labs: Laboratory Results - last 24 hr 11/19/23 04:08 WBC 16.7 H RBC 3.75 L Hgb 11.3 L Hct 34.5 L MCV 91.8 MCH 30.2 MCHC 32.8 RDW 15.1 H Plt Count 225 Neut % (Auto) 79.2 H Lymph % (Auto) 7.7 L [place] % (Auto) 11.2 Eos % (Auto) 1.6 L Baso % (Auto) 0.3 Neut # (Auto) 52746 H Lymph # (Auto) 1300 [place] # (Auto) 1900 H Eos # (Auto) 300 Baso # (Auto) 100 Sodium 139 Potassium 4.0 Chloride 104 Carbon Dioxide 35 H BUN 15 Creatinine 0.73 Estimated GFR > 60 BUN/Creatinine Ratio 20.5 Glucose 105 Calcium 8.3 L Magnesium 2.2 Total Bilirubin 0.7 AST 19 ALT 20 Alkaline Phosphatase 90 Total Protein 6.2 L Albumin 3.1 L Globulin 3.1 Albumin/Globulin Ratio 1.0 REPLACED BY [facility] Medical History Muscular deconditioning Vitamin B deficiency Hyperlipidemia (Unknown) 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
--- NOTE | 2023-11-19 19:03 | PC.NURSE ---
Pt A&Ox2-3, VSS, desats quickly off heated high flow. 85% FiO2 50L. Minimal appetite. Sister at bedside, consented to transfer. Pt transferred to [facility] by ambulance at approximately 1845. Report called to receiving RN at 1850.
== END 2023-11-19 18:45 | disposition short-term general hospital (02) | DRG 853 ==
LOC: ED 10:38 → AC 10:53 → ICU 12:35 → AC 11-15 16:08 → ICU 11-17 16:16
PROVIDERS: Internal Medicine; Internal Medicine Critical Care Medicine; Surgery; Admitting Provider Student in an Organized Health Care Education/Training Program; Emergency Provider Emergency Medicine; Family Provider Family Medicine; PCP Family Medicine; Referring Provider Emergency Medicine; Visit Provider Student in an Organized Health Care Education/Training Program
PROC: 0FT44ZZ Resection of Gallbladder, Percutaneous Endoscopic Approach (ICD-10-PCS; CPT 47562; principal; 2023-11-14 13:45)
DX: A41.9 Sepsis, unspecified organism (principal); J18.9 Pneumonia, unspecified organism; J96.01 Acute respiratory failure with hypoxia; K65.3 Choleperitonitis; K81.0 Acute cholecystitis; N39.0 Urinary tract infection, site not specified; I50.30 Unspecified diastolic (congestive) heart failure; F32.A Depression, unspecified; G35 Multiple sclerosis; K82.A1 Gangrene of gallbladder in cholecystitis; B96.89 Other specified bacterial agents as the cause of diseases classified elsewhere; R65.20 Severe sepsis without septic shock; Z99.3 Dependence on wheelchair
CPT/HCPCS: 36415; 36592; 36600; 71045; 71275; 74177; 76705; 80053; 81001; 82550; 82805; 82962; 83605; 83690; 83735; 83880; 84145; 84484; 85007; 85025; 85610; 85730; 87040; 87077; 87086; 87633; 87797; 92526; 92610; 94640; 96365; 96366; 97161; 97530; 99285; C8929; J1100; J1170; J1940; J2405; J2543; J2704; J3010; J7613; Q9957; Q9967